=== PATIENT | female | born 1945 | race Caucasian/White ===

== ENCOUNTER → 2017-08-03 11:11 | Outpatient (CLI) | payer MEDICARE, SELFPAY ==
[2017-08-03 13:53] LABS: Erythrocyte Sedimentation Rate 22 mm/hr (0-30)
[2017-08-03 13:58] LABS: Rheumatoid Factor < 10.0 IU/mL (<15)
[2017-08-06 05:01] LABS: Rapid Plasmin Reagin (RPR) NONREACTIVE (NONREACTIVE)
[2017-08-09 14:04] LABS: HLA B27 Negative (.)
== END ==
PROVIDERS: Family Provider Family Medicine; PCP Family Medicine; Visit Provider Ophthalmology
DX: H20.00 Unspecified acute and subacute iridocyclitis (principal); H25.813 Combined forms of age-related cataract, bilateral; H35.81 Retinal edema; E11.9 Type 2 diabetes mellitus without complications; Z79.84 Long term (current) use of oral hypoglycemic drugs
CPT/HCPCS: 36415; 81374; 85652; 86038; 86431; 86592

== ENCOUNTER 2017-10-15 09:48 | Inpatient (IN) | payer MEDICARE, SELFPAY ==
[2017-10-15] VITALS (9 sets, daily range): BP systolic 134–150; BP diastolic 52–81; PULSE 10–118; RESP 16–20; TEMP 36.7–37.9; O2SAT 95–99; BMI 38.7; BMI 40.2
--- NOTE | 2017-10-15 10:08 | EKG12_ITS ---
Test Reason : FEVER Blood Pressure : / mmHG Vent. Rate : 109 BPM Atrial Rate : 109 BPM P-R Int : 172 ms QRS Dur : 142 ms QT Int : 360 ms P-R-T Axes : 040 -31 -01 degrees QTc Int : 484 ms Sinus tachycardia Left axis deviation Right bundle branch block Abnormal ECG Confirmed by NDIHI BEAR, PHILLY ([id number]), electronic news gathering editor FELY FLORES ([id number]) on 10/21/2017 3:10:03 PM Referred By: NEIL Confirmed By:PHILLY TERRELL MD
--- NOTE | 2017-10-15 10:15 | RAD_ITS ---
STUDY: X-RAY CHEST REASON FOR EXAM: Female, 72 years old. Fever and shortness of breath. TECHNIQUE: Single AP portable view of the chest. COMPARISON: Comparison is made with prior study dated December 27, 2016. FINDINGS: EKG electrodes are seen. Mild degree of vascular congestion. There is no demonstrated pleural abnormality. There is mild cardiac enlargement. Normal mediastinum and demetrius. Normal visualized pulmonary arteries. There is atherosclerotic tortuosity of the aortic arch and descending thoracic aorta. There are diffuse degenerative changes of the visualized thoracic spine. Evidence of prior left rotator cuff surgery. There is no demonstrated abnormality of the visualized soft tissue structures of the upper abdomen. RAD/Chest 1 View (Portable) IMPRESSION: Mild degree of vascular congestion. Electronically Signed: Mitchel Diaz MD at 11:17 EDT Tel [phone], Service support ,
--- NOTE | 2017-10-15 10:15 | ED.DCSUM_ITS ---
- ER Visit Summary Date of Service: 10/15/17 Chief Complaint: Fever History of Present Illness: The patient is a 72 F complains of fever that started about 11-12 hours ago. She is also complaining of quite a bit of pain in her right calf region as well as redness. She is a diabetic, she also has a history of melanoma and ovarian cancer. She is complaining of headache but no neck pain. No cough, no shortness of breath. No dysuria. She has an ostomy bag and she has chronic abdominal pain, she endorses some abdominal pain but only slightly worse than her normal pain. No change in character. Physical Examination: Patient is tachycardic, febrile. She appears in some distress. She has a supple neck with no meningismus and a negative jolt. She has clear lungs bilaterally with regular tachycardia. Her abdomen is soft there is some tenderness to palpation but no guarding or rebound. The ostomy bag site is clean dry and intact without any signs of cellulitis. She has significant cellulitis of the right lower extremity circumferentially. No crepitus. No lymphangitic streaking. Emergency Department Course and Treatment: Leg x-ray does not show any subcutaneous air, no streaking on physical exam and no crepitus on examination. There are no current signs of necrotizing fasciitis. Patient was treated aggressively with vancomycin and Cipro. These were chosen secondary to her allergies to 3 different antibiotics. He does have leukocytosis with a left shift. Disposition: Admit stable condition Impression: Cellulitis This note was generated with [employer] dictation software. It may contain incorrect words, spelling, and punctuation that were not noted in review of the chart prior to signing ED Disposition - Plan for ED Patient: Chief Complaint: Fever Referrals: Chente Daigle MD [Primary Care Provider] -
--- NOTE | 2017-10-15 10:22 | RAD_ITS ---
STUDY: X-RAY - RIGHT TIBIA AND FIBULA REASON FOR EXAM: Female, 72 years old. Pain and swelling. No known injury. TECHNIQUE: 3 view(s) of the tibia and fibula were obtained. COMPARISON: None. FINDINGS: Normal visualized tibia. Normal visualized fibula. Diffuse soft tissue swelling. RAD/Tibia & Fibula 2 Views IMPRESSION: Diffuse soft tissue swelling. Electronically Signed: Mitchel Diaz MD at 11:16 EDT Tel [phone], Service support ,
[2017-10-15 10:36] LABS: Absolute Lymphocyte Count 0.86 X10^3/ul (0.83-4.51); Absolute Neutrophil Count 13.1 X10^3/uL (2.0-7.7); Basophil# 0.01 X10^3/uL; Basophil% 0.1 % (0-1); Eosinophil# 0.02 X10^3/uL; Eosinophils% 0.1 % (0-5); Hemoglobin 12.9 g/dl (12.0-15.0); Lymphocyte # 0.86 X10^3/ul (4.0); Lymphocyte % 5.9 % (19-41); Mean Corp Hgb Conc 32.3 g/gl (32-36); Mean Corpuscular Hgb 29.9 pg (27.0-32.0); Mean Corpuscular Volume 92.6 fL (81-99); Mean Platelet Vol. 9.8 fl (6.2-12.0); Monocyte# 0.55 X10^3/uL; Monocyte% 3.8 % (0-10); Neutrophil # 13.14 X10^3/uL (2.7-7.7); Platelet Count 128 K/mm3 (150-450); RBC Distribution Width CV 14.2 % (11.6-14.6); Red Blood Count 4.32 M/mm3 (4.2-5.4); White Blood Count 14.6 K/mm3 (4.4-11.0)
[2017-10-15 10:37] LABS: POSITIVE COUNT NO; POSITIVE DIFFERENTIAL NO; POSITIVE MORPHOLOGY NO
[2017-10-15 10:40] LABS: International Normalized Ratio 1.3; Prothrombin Time (Protime)PT. 15.7 SECONDS (11.7-14.9)
[2017-10-15 10:41] LABS: Partial Thromboplast Time 33.5 Seconds (24.1-36.2)
[2017-10-15 10:49] LABS: ALB/GLOB Ratio 0.8 RATIO (0.9-2.4); AST(SGOT) 15 U/L (15-37); Alanine Aminotransfer ALT/SGPT 22 U/L (13-56); Albumin, Serum 3.3 g/dL (3.2-5.0); Alkaline Phosphatase 100 U/L (45-117); Anion Gap 7 (5-15); BUN 30 mg/dL (7-18); BUN/Creat Ratio 20.5 RATIO (10-20); Calcium,Total 8.8 mg/dL (8.5-10.1); Chloride 102 mmol/L (98-107); Creatinine, Serum 1.46 mg/dL (0.55-1.02); EST Glomerular Filtration Rate 37 mL/min (>60); Est Glom Filt Rate - Afr Amer 45 mL/min (>60); Estimated Creatinine Clearance 26.28 ml/min; Globulin 3.9 g/dL (2.2-4.2); Glucose 177 mg/dL (74-106); Potassium 3.9 mmol/L (3.5-5.1); Protein, Total 7.2 g/dL (6.4-8.2); Sodium Level 139 mmol/L (136-145)
[2017-10-15 10:54] LABS: Lactic Acid 1.5 mmol/L (0.4-2.0)
[2017-10-15 10:54] LABS: Bacteria 0 SEEN /hpf (None Seen); Mucous, Urine 0 SEEN /hpf (<or=2+); Red Blood Cells-Urine 0 SEEN /hpf (0-5)
[2017-10-15 11:03] LABS: Color, Urine Yellow (Yellow); Glucose, Dipstick Normal (Normal); Ketone-Dipstick Negative (Negative); Leukocyte Esterase-Dipstick 25 /ul (Negative); Nitrite-Dipstick Negative (Negative); Occult Blood-Urine 50 /ul (Negative); Protein-Dipstick 30 mg/dl (Negative); Specific Gravity, Urine 1.015 (1.002-1.030); Urine Bilirubin Dipstick Negative (Negative); Urine Clarity Clear (Clear); Urine Urobilinogen Normal (Normal)
[2017-10-15 11:10] LABS: White Blood Cells 0-5 SEEN /hpf (0-5)
[2017-10-15 11:11] LABS: Squamous Epithelial Cells - UA 0-5 SEEN /hpf (5-10)
[2017-10-15] MEDS: proMETHazine 25 MG Tablet PO (13:40)
[2017-10-15] MEDS: Acetaminophen 325 MG Tablet 650 MG PO (13:41)
[2017-10-15 14:31] LABS: Bedside Glucose 126 mg/dL (70-110)
--- NOTE | 2017-10-15 14:52 | PCM.HP.STD ---
Problem List (1) Cellulitis of right lower extremity Status: Acute History of Present Illness Date of Admission: 10/15/17 Chief Complaint: right leg pain. The patient is a 72 year old F with history of cellulitis. Patient was feeling ill, with malaise in days prior. Then this morning, around 0300, she had swelling and pain in posterior distal RLE. She had fever and chills. She presented to ED and was found to have RLE cellulitis. She received Vancomycin. [] Past Medical History Past Medical History (Chronic Problems): Chronic Problems Asthma (Chronic) Reported, severity unknown History of DVT (deep vein thrombosis) (Chronic) History of pulmonary embolism (Chronic) Type II diabetes mellitus (Chronic) Cancer of ovary (Chronic) Anemia (Chronic) Venous insufficiency (Chronic) Poor dentition (Chronic) Allergies clindamycin Allergy (Verified 10/15/17 09:50) Other meperidine HCl [From Demerol] Allergy (Verified 10/15/17 09:50) Other Penicillins Allergy (Verified 10/15/17 09:50) Itching adhesive tape Adverse Reaction (Verified 10/15/17 09:50) Other BLISTERS aspirin Adverse Reaction (Verified 10/15/17 09:50) Other diazepam [From Valium] Adverse Reaction (Verified 10/15/17 09:50) Nausea/Vom/Diarrhea egg Adverse Reaction (Verified 10/15/17 09:50) Diarrhea morphine Adverse Reaction (Verified 10/15/17 09:50) Nausea/Vom/Diarrhea sulfamethoxazole [From Bactrim] Adverse Reaction (Verified 10/15/17 09:50) Nausea/Vom/Diarrhea trimethoprim [From Bactrim] Adverse Reaction (Verified 10/15/17 09:50) Nausea/Vom/Diarrhea Home Medications: Ambulatory Orders Medication Instructions Recorded Acetaminophen [Tylenol] 325 mg PO Q6H PRN PRN 05/29/15 Cyanocobalamin [Vitamin B12] 1,000 mcg PO DAILY@0800 05/29/15 Cyclobenzaprine [Flexeril] 10 mg PO QHS 05/29/15 Metformin HCl [Glucophage] 500 mg PO BIDCM 05/29/15 Apixaban [Eliquis] 2.5 mg PO BID 06/12/15 Multivitamin [Daily Multiple 1 tab PO DAILY 06/12/15 Vitamin] Furosemide [Lasix] 40 mg PO BID 07/16/15 Oxycodone [Oxyir] 5 mg PO Q4H PRN PRN #60 tablet 07/20/15 proMETHazine tablet [Phenergan 25 mg PO 4X/DAY PRN PRN #20 tablet 07/20/15 tablet] Albuterol IH (ProAir) [Proair Hfa] 2 puff INHALATION Q6H PRN PRN 05/27/16 Cetirizine HCl [Zyrtec] 10 mg PO PRN PRN 05/27/16 Ondansetron HCl [Zofran] 4 mg PO 4X/DAY PRN PRN 05/27/16 Sumatriptan Succinate [Imitrex] 50 mg PO .X1 PRN 05/27/16 Oxycodone HCl [Oxycodone HCl ER] 15 mg PO Q12H PRN PRN 12/25/16 Surgical History: cholecystectomy, hysterectomy - For uterine fibroids, total hip arthroplasty - Right, total knee arthroplasty - Left, - - Surgery for bilateral carpal tunnel syndrome. Resection of ovarian cancer at [facility] in 2015, debridement of the abdominal wall with wound closure by Dr. 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 Smoking Status: Never smoker - *Family History Maternal History Items: No pertinent history, - - no cancer Paternal History Items: No pertinent history Review of Systems Constitutional: Reports: Chills, Fever, Malaise, Weakness Eyes: Reports: Blurred vision - chronic due to fluid behind her eyes Cardiovascular: Denies: Chest Pain, Claudication, Chest Pressure, Chest Tightness Respiratory: Denies: Cough, Hemoptysis, Pleuritic Pain Gastrointestinal: Denies: Abdominal Pain, Constipation Genitourinary: Denies: Dysuria Musculoskeletal: Denies: Joint Pain, Joint Tenderness Skin: Denies: Rash, Wounds Neurological: Denies: Numbness, Tingling, Focal weakness Psychiatric: Denies: Anxiety, Depression Hematologic/ Lymphatic: Denies: Easy Bruising, Easy Bleeding VTE Information - Inpt Only VTE Present on Admission: No VTE Pharm Prophylaxis ordered?: Yes Patient Problems: Active and Suspected Problems Cellulitis of right lower extremity (Acute) - Physical Exam General: Alert, No apparent distress HEENT: Atraumatic, Normocephalic Oral: Moist Mucosa, No Gingival or Mucosal Lesions/ Ulcerations Neck: No Nodes, Thyroid Normal Size and Texture Lungs: Clear to auscultation, Normal air movement, No rhonchi, No wheeze Cardiovascular: Regular rate, Regular Rhythm, Normal S1, Normal S2, No murmurs Abdomen: Bowel Sounds Present, Soft, Non Tender, Non-Distended, No Hepato-splenomegaly, - - ventral hernia below stoma Extremities: No Calf Tenderness, Edema - trace Skin: - - erythema and TTP of RLE Musculoskeletal: No Tenderness to Palpation of Joints or Extremities, No Muscle Wasting Psych/Mental Status: Normal Affect, Appropriate Vital Signs Temp Pulse Resp BP Pulse Ox 36.7 C 103 H 18 146/81 H 98 10/15/17 13:00 10/15/17 13:00 10/15/17 13:00 10/15/17 13:00 10/15/17 13:00 Oxygen Delivery Method Room Air Weight: 96.6 kg Body Mass Index (BMI) 40.2 POC Glucose 10/15/17 14:25 POC Glucose 126 H Assessment/Plan All Active Problems Cellulitis of right lower extremity (Acute) Severe sepsis (Acute) Melanoma (Acute) Acute renal insufficiency (Acute) Dental infection (Acute) Dehydration (Acute) Abdominal wall ulcer (Resolved) Colitis (Resolved) Left leg cellulitis (Resolved) Sepsis (Resolved) Surgical wound dehiscence (Resolved) 1. Sepsis: present on admission secondary to RLE cellulitis 2. 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 DVT proph: LMWH Code Visit Inpatient E&M: 61205 Init Hosp L2
--- NOTE | 2017-10-15 15:03 | HP.PCM_ITS ---
Problem List (1) Cellulitis of right lower extremity Status: Acute History of Present Illness Date of Admission: 10/15/17 Chief Complaint: right leg pain. The patient is a 72 year old F with history of cellulitis. Patient was feeling ill, with malaise in days prior. Then this morning, around 0300, she had swelling and pain in posterior distal RLE. She had fever and chills. She presented to ED and was found to have RLE cellulitis. She received Vancomycin. [ ] Past Medical History Past Medical History (Chronic Problems): Chronic Problems Asthma (Chronic) Reported, severity unknown History of DVT (deep vein thrombosis) (Chronic) History of pulmonary embolism (Chronic) Type II diabetes mellitus (Chronic) Cancer of ovary (Chronic) Anemia (Chronic) Venous insufficiency (Chronic) Poor dentition (Chronic) Allergies clindamycin Allergy (Verified 10/15/17 09:50) Other meperidine HCl [From Demerol] Allergy (Verified 10/15/17 09:50) Other Penicillins Allergy (Verified 10/15/17 09:50) Itching adhesive tape Adverse Reaction (Verified 10/15/17 09:50) Other BLISTERS aspirin Adverse Reaction (Verified 10/15/17 09:50) Other diazepam [From Valium] Adverse Reaction (Verified 10/15/17 09:50) Nausea/Vom/Diarrhea egg Adverse Reaction (Verified 10/15/17 09:50) Diarrhea morphine Adverse Reaction (Verified 10/15/17 09:50) Nausea/Vom/Diarrhea sulfamethoxazole [From Bactrim] Adverse Reaction (Verified 10/15/17 09:50) Nausea/Vom/Diarrhea trimethoprim [From Bactrim] Adverse Reaction (Verified 10/15/17 09:50) Nausea/Vom/Diarrhea Home Medications: Ambulatory Orders Medication Instructions Recorded Acetaminophen [Tylenol] 325 mg PO Q6H PRN PRN 05/29/15 Cyanocobalamin [Vitamin B12] 1,000 mcg PO DAILY@0800 05/29/15 Cyclobenzaprine [Flexeril] 10 mg PO QHS 05/29/15 Metformin HCl [Glucophage] 500 mg PO BIDCM 05/29/15 Apixaban [Eliquis] 2.5 mg PO BID 06/12/15 Multivitamin [Daily Multiple 1 tab PO DAILY 06/12/15 Vitamin] Furosemide [Lasix] 40 mg PO BID 07/16/15 Oxycodone [Oxyir] 5 mg PO Q4H PRN PRN #60 tablet 07/20/15 proMETHazine tablet [Phenergan 25 mg PO 4X/DAY PRN PRN #20 tablet 07/20/15 tablet] Albuterol IH (ProAir) [Proair Hfa] 2 puff INHALATION Q6H PRN PRN 05/27/16 Cetirizine HCl [Zyrtec] 10 mg PO PRN PRN 05/27/16 Ondansetron HCl [Zofran] 4 mg PO 4X/DAY PRN PRN 05/27/16 Sumatriptan Succinate [Imitrex] 50 mg PO .X1 PRN 05/27/16 Oxycodone HCl [Oxycodone HCl ER] 15 mg PO Q12H PRN PRN 12/25/16 Surgical History: cholecystectomy, hysterectomy - For uterine fibroids, total hip arthroplasty - Right, total knee arthroplasty - Left, - - Surgery for bilateral carpal tunnel syndrome. Resection of ovarian cancer at [facility] in 2015, debridement of the abdominal wall with wound closure by Dr. 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 Smoking Status: Never smoker - *Family History Maternal History Items: No pertinent history, - - no cancer Paternal History Items: No pertinent history Review of Systems Constitutional: Reports: Chills, Fever, Malaise, Weakness Eyes: Reports: Blurred vision - chronic due to fluid behind her eyes Cardiovascular: Denies: Chest Pain, Claudication, Chest Pressure, Chest Tightness Respiratory: Denies: Cough, Hemoptysis, Pleuritic Pain Gastrointestinal: Denies: Abdominal Pain, Constipation Genitourinary: Denies: Dysuria Musculoskeletal: Denies: Joint Pain, Joint Tenderness Skin: Denies: Rash, Wounds Neurological: Denies: Numbness, Tingling, Focal weakness Psychiatric: Denies: Anxiety, Depression Hematologic/ Lymphatic: Denies: Easy Bruising, Easy Bleeding VTE Information - Inpt Only VTE Present on Admission: No VTE Pharm Prophylaxis ordered?: Yes Patient Problems: Active and Suspected Problems Cellulitis of right lower extremity (Acute) - Physical Exam General: Alert, No apparent distress HEENT: Atraumatic, Normocephalic Oral: Moist Mucosa, No Gingival or Mucosal Lesions/ Ulcerations Neck: No Nodes, Thyroid Normal Size and Texture Lungs: Clear to auscultation, Normal air movement, No rhonchi, No wheeze Cardiovascular: Regular rate, Regular Rhythm, Normal S1, Normal S2, No murmurs Abdomen: Bowel Sounds Present, Soft, Non Tender, Non-Distended, No Hepato- splenomegaly, - - ventral hernia below stoma Extremities: No Calf Tenderness, Edema - trace Skin: - - erythema and TTP of RLE Musculoskeletal: No Tenderness to Palpation of Joints or Extremities, No Muscle Wasting Psych/Mental Status: Normal Affect, Appropriate Vital Signs Temp Pulse Resp BP Pulse Ox 36.7 C 103 H 18 146/81 H 98 10/15/17 13:00 10/15/17 13:00 10/15/17 13:00 10/15/17 13:00 10/15/17 13:00 Oxygen Delivery Method Room Air Weight: 96.6 kg Body Mass Index (BMI) 40.2 POC Glucose 10/15/17 14:25 POC Glucose 126 H Assessment/Plan All Active Problems Cellulitis of right lower extremity (Acute) Severe sepsis (Acute) Melanoma (Acute) Acute renal insufficiency (Acute) Dental infection (Acute) Dehydration (Acute) Abdominal wall ulcer (Resolved) Colitis (Resolved) Left leg cellulitis (Resolved) Sepsis (Resolved) Surgical wound dehiscence (Resolved) 1. Sepsis: * present on admission * secondary to RLE cellulitis 2. 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 DVT proph: * LMWH Code Visit Inpatient E&M: 05187 Init Hosp L2
--- NOTE | 2017-10-15 15:54 | PCM.RX.CS ---
Consult Pharmacy has been consulted to manage selected antiobiotic: Vancomycin Type of Consult: New start Suspected Infection: Skin/Soft tissue Prior Doses of Antibiotics Received/Current Regimen: 1 Labs: Sodium 139 mmol/L (136-145) 10/15/17 10:23 Potassium 3.9 mmol/L (3.5-5.1) 10/15/17 10:23 Chloride 102 mmol/L (98-107) 10/15/17 10:23 Carbon Dioxide 30.0 mmol/L (21.0-32.0) 10/15/17 10:23 Anion Gap 7 (5-15) 10/15/17 10:23 BUN 30 mg/dL (7-18) H 10/15/17 10:23 Creatinine 1.46 mg/dL (0.55-1.02) H 10/15/17 10:23 Est GFR (MDRD) Af Amer 45 mL/min (>60) L 10/15/17 10:23 Est GFR (MDRD) Non-Af 37 mL/min (>60) L 10/15/17 10:23 BUN/Creatinine Ratio 20.5 RATIO (10-20) H 10/15/17 10:23 Glucose 177 mg/dL (74-106) H 10/15/17 10:23 Weight used for dosin.6 kg Estimated Creatinine Clearance: 26.28 Goal Trough: 10-15 mcg/mL - 750MG IVPB Q24H, DRAW TROUGH PRIOR TO 3RD TOTAL DOSE Pharmacy Plan for Drug Dosing: Pharmacy Service will continue to monitor and adjust dosing as required.
[2017-10-15] MEDS: oxyCODONE CR 15 MG Tablet PO (16:37)
[2017-10-15] MEDS: oxyCODONE 5 MG Tablet PO ×2 (16:38→21:38)
[2017-10-15] MEDS: APIXABAN 2.5 MG TABLET PO (16:38)
[2017-10-15] MEDS: Furosemide 40 MG Tablet PO (21:39)
[2017-10-15 21:46] LABS: Bedside Glucose 156 mg/dL (70-110)
[2017-10-16] MEDS: oxyCODONE CR 15 MG Tablet PO ×3 (00:59→21:34)
[2017-10-16 02:35] VITALS: BP 110/54; PULSE 72; RESP 16; TEMP 36.8; O2SAT 98
[2017-10-16 07:01] LABS: Bedside Glucose 110 mg/dL (70-110)
[2017-10-16 07:16] LABS: Absolute Lymphocyte Count 0.55 X10^3/ul (0.83-4.51); Absolute Neutrophil Count 4.4 X10^3/uL (2.0-7.7); Basophil# 0.01 X10^3/uL; Basophil% 0.2 % (0-1); Eosinophil# 0.13 X10^3/uL; Eosinophils% 2.3 % (0-5); Hematocrit 34.8 % (37-47); Hemoglobin 10.9 g/dl (12.0-15.0); Lymphocyte # 0.55 X10^3/ul (4.0); Lymphocyte % 9.7 % (19-41); Mean Corp Hgb Conc 31.3 g/gl (32-36); Mean Corpuscular Hgb 29.8 pg (27.0-32.0); Mean Corpuscular Volume 95.1 fL (81-99); Mean Platelet Vol. 9.6 fl (6.2-12.0); Monocyte# 0.57 X10^3/uL; Monocyte% 10.1 % (0-10); Neutrophil # 4.39 X10^3/uL (2.7-7.7); Neutrophil % 77.5 % (47-70); Platelet Count 111 K/mm3 (150-450); RBC Distribution Width CV 14.6 % (11.6-14.6); RBC Distribution Width SD 50.3 fl (35.1-43.9); Red Blood Count 3.66 M/mm3 (4.2-5.4); White Blood Count 5.7 K/mm3 (4.4-11.0)
[2017-10-16 07:18] LABS: Differential Indicated SCAN CRITERIA MET; POSITIVE COUNT NO; POSITIVE DIFFERENTIAL YES; POSITIVE MORPHOLOGY NO
[2017-10-16 07:34] LABS: Anion Gap 7 (5-15); BUN 23 mg/dL (7-18); BUN/Creat Ratio 17.4 RATIO (10-20); Calcium,Total 8.2 mg/dL (8.5-10.1); Chloride 107 mmol/L (98-107); Creatinine, Serum 1.32 mg/dL (0.55-1.02); EST Glomerular Filtration Rate 42 mL/min (>60); Est Glom Filt Rate - Afr Amer 51 mL/min (>60); Estimated Creatinine Clearance 29.07 ml/min; Glucose 118 mg/dL (74-106); Potassium 3.8 mmol/L (3.5-5.1); Sodium Level 143 mmol/L (136-145)
[2017-10-16 08:06] VITALS: BP 104/51; PULSE 72; RESP 18; TEMP 36.7; O2SAT 98
[2017-10-16] MEDS: Furosemide 40 MG Tablet PO ×2 (08:07→21:36)
[2017-10-16] MEDS: APIXABAN 2.5 MG TABLET PO ×2 (08:09→21:37)
[2017-10-16] MEDS: Cyanocobalamin 500 MCG Tablet 1000 MCG PO (08:09)
[2017-10-16] MEDS: oxyCODONE 5 MG Tablet PO ×2 (08:15→17:07)
[2017-10-16] MEDS: Multivitamins,Therapeutic Tablet 1 TABLET PO (08:16)
--- NOTE | 2017-10-16 09:07 | PCM.PN.HOSP ---
Patient Problems: Active and Suspected Problems Cellulitis of right lower extremity (Acute) Sepsis (Acute) Subjective: Feeling better. Still with right leg pain. Vitals/I&O's: Vital Signs Temp Pulse Resp BP Pulse Ox 36.7 C 72 18 104/51 L 98 10/16/17 08:06 10/16/17 08:06 10/16/17 08:06 10/16/17 08:06 10/16/17 08:06 Oxygen Delivery Method Room Air Weight: 96.6 kg Body Mass Index (BMI) 40.2 Intake and Output for Last 24 Hours 10/14/17 10/15/17 10/16/17 23:59 23:59 23:59 Intake Total 660 / 660 Output Total 650 / 650 Balance General: Alert, Cooperative, No apparent distress HEENT: Atraumatic, Normocephalic Neck: No Nodes, Thyroid Normal Size and Texture Lungs: Clear to auscultation, Normal air movement, No rhonchi, No wheeze Cardiovascular: Regular rate, Regular Rhythm, Normal S1, Normal S2, No murmurs Abdomen: Bowel Sounds Present, Soft, Non Tender, Non-Distended Extremities: Edema Skin: - - still with RLE erythema and warmth. Psych/Mental Status: Normal Affect, Appropriate Laboratory Results 10/15/17 14:25: POC Glucose 126 H 10/15/17 21:24: POC Glucose 156 H 10/16/17 06:57: POC Glucose 110 10/16/17 07:00: WBC 5.7, RBC 3.66 L, Hgb 10.9 L, Hct 34.8 L, MCV 95.1, MCH 29.8, MCHC 31.3 L, RDW 14.6, RDW Differential 50.3 H, Plt Count 111 L, MPV 9.6, Immature Gran % (Auto) 0.200, Neut % (Auto) 77.5 H, Lymph % (Auto) 9.7 L, [place] % (Auto) 10.1 H, Eos % (Auto) 2.3, Baso % (Auto) 0.2, Absolute Neuts (auto) 4.4, Absolute Lymphs (auto) 0.55 L, Total Counted Not Reportable 10/16/17 07:00: Sodium 143, Potassium 3.8, Chloride 107, Carbon Dioxide 29.0, Anion Gap 7, BUN 23 H, Creatinine 1.32 H, Estim Creat Clear Calc 29.07, Est GFR (MDRD) Af Amer 51 L, Est GFR (MDRD) Non-Af 42 L, BUN/Creatinine Ratio 17.4, Glucose 118 H, Calcium 8.2 L Current Medications Acetaminophen (Tylenol) 325 mg PO Q6H PRN PRN PRN Reason: PAIN Acetaminophen (Tylenol) 650 mg PO Q6H PRN PRN PRN Reason: Mild Pain (scale 0-3)/T>100.7 Last Admin: 10/15/17 13:41 Dose: 650 mg Albuterol Sulfate (Ventolin Aerosols) 2.5 mg INHALATION Q4H PRN PRN Reason: SOB/WHEEZING Apixaban (Eliquis) 2.5 mg PO BID [facility] Last Admin: 10/16/17 08:09 Dose: 2.5 mg Cyanocobalamin (Vitamin B12) 1,000 mcg PO DAILY@0800 [facility] Last Admin: 10/16/17 08:09 Dose: 1,000 mcg Cyclobenzaprine HCl (Flexeril) 10 mg PO QHS [facility] Last Admin: 10/15/17 21:38 Dose: 10 mg Dextrose (D50w Syringe) 0 gm IV X1 PRN; Protocol PRN Reason: Hypoglycemia Furosemide (Lasix) 40 mg PO BID [facility] Last Admin: 10/16/17 08:07 Dose: 40 mg Glucagon () 1 mg IM .X1 PRN PRN Reason: Hypoglycemia Vancomycin HCl 750 mg/ Sodium (Chloride) 265 mls @ 265 mls/hr IV Q24H [facility] Insulin Human Lispro (Humalog Kwikpen (Bkc)) 0 unit SQ TIDAC [facility] PRN Reason: Protocol Last Admin: 10/16/17 07:01 Dose: Not Given Loratadine (Claritin) 10 mg PO DAILY PRN PRN PRN Reason: ALLERGIES Magnesium Hydroxide (Milk Of Magnesia) 30 ml PO DAILY PRN PRN PRN Reason: Constipation [facility] Last Admin: 10/16/17 08:08 Dose: 500 mg Multivitamins (Multivitamin) 1 tablet PO DAILY@0800 [facility] Last Admin: 10/16/17 08:16 Dose: 1 tablet Ondansetron HCl (Zofran) 4 mg IV Q8H PRN PRN PRN Reason: Nausea Ondansetron HCl (Zofran Odt) 4 mg PO 4X/DAY PRN PRN PRN Reason: NAUSEA Oxycodone HCl (Oxyir) 5 mg PO Q4H PRN PRN PRN Reason: PAIN Last Admin: 10/16/17 08:15 Dose: 5 mg Oxycodone HCl (Oxycontin) 15 mg PO Q12 [place] Last Admin: 10/16/17 00:59 Dose: 15 mg Promethazine HCl (Phenergan Tablet) 25 mg PO 4X/DAY PRN PRN PRN Reason: NAUSEA/VOMITING Last Admin: 10/15/17 13:40 Dose: 25 mg Rizatriptan Benzoate (Maxalt) 10 mg PO X1 PRN PRN Reason: MIGRAINE SYMPTOMS Sodium Chloride () 5 - 30 ml IV UD PRN PRN Reason: SALINE FLUSH Medical Necessity - Tobacco Use Smoking Status: Never smoker Assessment/Plan All Active Problems Cellulitis of right lower extremity (Acute) Sepsis (Acute) Severe sepsis (Acute) Melanoma (Acute) Acute renal insufficiency (Acute) Dental infection (Acute) Dehydration (Acute) Abdominal wall ulcer (Resolved) Colitis (Resolved) Left leg cellulitis (Resolved) Sepsis (Resolved) Surgical wound dehiscence (Resolved) 1. Sepsis: present on admission improved today secondary to RLE cellulitis 2. RLE cellulitis suspect Staph or Strep vancomycin Blood cultures pending. UCx pending. 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 DVT proph: LMWH Code Visit Inpatient E&M: 26527 Subs Hosp L2
--- NOTE | 2017-10-16 09:10 | PN_ITS ---
Patient Problems: Active and Suspected Problems Cellulitis of right lower extremity (Acute) Sepsis (Acute) Subjective: Feeling better. Still with right leg pain. Vitals/I&O's: Vital Signs Temp Pulse Resp BP Pulse Ox 36.7 C 72 18 104/51 L 98 10/16/17 08:06 10/16/17 08:06 10/16/17 08:06 10/16/17 08:06 10/16/17 08:06 Oxygen Delivery Method Room Air Weight: 96.6 kg Body Mass Index (BMI) 40.2 Intake and Output for Last 24 Hours 10/14/17 10/15/17 10/16/17 23:59 23:59 23:59 Intake Total 660 / 660 Output Total 650 / 650 Balance General: Alert, Cooperative, No apparent distress HEENT: Atraumatic, Normocephalic Neck: No Nodes, Thyroid Normal Size and Texture Lungs: Clear to auscultation, Normal air movement, No rhonchi, No wheeze Cardiovascular: Regular rate, Regular Rhythm, Normal S1, Normal S2, No murmurs Abdomen: Bowel Sounds Present, Soft, Non Tender, Non-Distended Extremities: Edema Skin: - - still with RLE erythema and warmth. Psych/Mental Status: Normal Affect, Appropriate Laboratory Results 10/15/17 14:25: POC Glucose 126 H 10/15/17 21:24: POC Glucose 156 H 10/16/17 06:57: POC Glucose 110 10/16/17 07:00: WBC 5.7, RBC 3.66 L, Hgb 10.9 L, Hct 34.8 L, MCV 95.1, MCH 29.8 , MCHC 31.3 L, RDW 14.6, RDW Differential 50.3 H, Plt Count 111 L, MPV 9.6, Immature Gran % (Auto) 0.200, Neut % (Auto) 77.5 H, Lymph % (Auto) 9.7 L, [place] % (Auto) 10.1 H, Eos % (Auto) 2.3, Baso % (Auto) 0.2, Absolute Neuts (auto) 4.4 , Absolute Lymphs (auto) 0.55 L, Total Counted Not Reportable 10/16/17 07:00: Sodium 143, Potassium 3.8, Chloride 107, Carbon Dioxide 29.0, Anion Gap 7, BUN 23 H, Creatinine 1.32 H, Estim Creat Clear Calc 29.07, Est GFR (MDRD) Af Amer 51 L, Est GFR (MDRD) Non-Af 42 L, BUN/Creatinine Ratio 17.4, Glucose 118 H, Calcium 8.2 L Current Medications Acetaminophen (Tylenol) 325 mg PO Q6H PRN PRN PRN Reason: PAIN Acetaminophen (Tylenol) 650 mg PO Q6H PRN PRN PRN Reason: Mild Pain (scale 0-3)/T>100.7 Last Admin: 10/15/17 13:41 Dose: 650 mg Albuterol Sulfate (Ventolin Aerosols) 2.5 mg INHALATION Q4H PRN PRN Reason: SOB/WHEEZING Apixaban (Eliquis) 2.[address] [facility] Last Admin: 10/16/17 08:09 Dose: 2.5 mg Cyanocobalamin (Vitamin B12) 1,000 mcg PO DAILY@0800 [facility] Last Admin: 10/16/17 08:09 Dose: 1,000 mcg Cyclobenzaprine HCl (Flexeril) [address] [facility] Last Admin: 10/15/17 21:38 Dose: 10 mg Dextrose (D50w Syringe) 0 gm IV X1 PRN; Protocol PRN Reason: Hypoglycemia Furosemide (Lasix) [address] [facility] Last Admin: 10/16/17 08:07 Dose: 40 mg Glucagon () 1 mg IM .X1 PRN PRN Reason: Hypoglycemia Vancomycin HCl 750 mg/ Sodium (Chloride) 265 mls @ 265 mls/hr IV Q24H [facility] Insulin Human Lispro (Humalog Kwikpen (Bkc)) [address] [facility] PRN Reason: Protocol Last Admin: 10/16/17 07:01 Dose: Not Given Loratadine (Claritin) 10 mg PO DAILY PRN PRN PRN Reason: ALLERGIES Magnesium Hydroxide (Milk Of Magnesia) 30 ml PO DAILY PRN PRN PRN Reason: Constipation [facility] Last Admin: 10/16/17 08:08 Dose: 500 mg Multivitamins (Multivitamin) 1 tablet PO DAILY@0800 [facility] Last Admin: 10/16/17 08:16 Dose: 1 tablet Ondansetron HCl (Zofran) 4 mg IV Q8H PRN PRN PRN Reason: Nausea Ondansetron HCl (Zofran Odt) 4 mg PO 4X/DAY PRN PRN PRN Reason: NAUSEA Oxycodone HCl (Oxyir) 5 mg PO Q4H PRN PRN PRN Reason: PAIN Last Admin: 10/16/17 08:15 Dose: 5 mg Oxycodone HCl (Oxycontin) 15 mg PO Q12 [facility] Last Admin: 10/16/17 00:59 Dose: 15 mg Promethazine HCl (Phenergan Tablet) 25 mg PO 4X/DAY PRN PRN PRN Reason: NAUSEA/VOMITING Last Admin: 10/15/17 13:40 Dose: 25 mg Rizatriptan Benzoate (Maxalt) 10 mg PO X1 PRN PRN Reason: MIGRAINE SYMPTOMS Sodium Chloride () 5 - 30 ml IV UD PRN PRN Reason: SALINE FLUSH Medical Necessity - Tobacco Use Smoking Status: Never smoker Assessment/Plan All Active Problems Cellulitis of right lower extremity (Acute) Sepsis (Acute) Severe sepsis (Acute) Melanoma (Acute) Acute renal insufficiency (Acute) Dental infection (Acute) Dehydration (Acute) Abdominal wall ulcer (Resolved) Colitis (Resolved) Left leg cellulitis (Resolved) Sepsis (Resolved) Surgical wound dehiscence (Resolved) 1. Sepsis: * present on admission * improved today * secondary to RLE cellulitis 2. RLE cellulitis * suspect Staph or Strep * vancomycin * Blood cultures pending. UCx pending. 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 DVT proph: * LMWH Code Visit Inpatient E&M: 51224 Subs Hosp L2
[2017-10-16 11:11] LABS: Bedside Glucose 141 mg/dL (70-110)
[2017-10-16] MEDS: 0.9% NaCl Peripheral Flush Adult/Peds IV (12:35)
[2017-10-16 14:00] VITALS: BP 118/58; PULSE 75; RESP 18; TEMP 36.8; O2SAT 98
--- NOTE | 2017-10-16 15:30 | CASEMGMT ---
RN YENNY Face to Face with patient for initial transition planning/care coordination assessment. RN CM introduced self and role at [facility]. Patient sitting in chair, alert and oriented, family at bedside. Patient willing to participate in assessment and is able to answer all questions appropriately. Care providers, pharmacy, and demographics verified. See link attached. Patient wishes to discharge home, denies need for home health at this time. Patient states she has no further needs or concerns at this time. CM to follow for discharge planning needs that may arise. Disposition Plan: Patient to discharge home with family support and follow-up plans in place.
[2017-10-16 16:50] LABS: Bedside Glucose 121 mg/dL (70-110)
[2017-10-16 20:21] VITALS: BP 141/67; PULSE 79; RESP 18; TEMP 36.8; O2SAT 100
[2017-10-16 23:26] LABS: Bedside Glucose 167 mg/dL (70-110)
[2017-10-17] MEDS: oxyCODONE 5 MG Tablet PO ×4 (00:23→23:57)
[2017-10-17 03:56] VITALS: BP 125/68; PULSE 67; RESP 18; TEMP 36.8; O2SAT 100
[2017-10-17 07:16] LABS: Bedside Glucose 102 mg/dL (70-110)
[2017-10-17] MEDS: Multivitamins,Therapeutic Tablet 1 TABLET PO (08:39)
[2017-10-17] MEDS: Furosemide 40 MG Tablet PO ×2 (08:39→17:39)
[2017-10-17] MEDS: Cyanocobalamin 500 MCG Tablet 1000 MCG PO (08:39)
[2017-10-17] MEDS: APIXABAN 2.5 MG TABLET PO ×2 (08:40→21:27)
--- NOTE | 2017-10-17 09:44 | PCM.PN.HOSP ---
Patient Problems: Active and Suspected Problems Sepsis (Acute) Cellulitis of right lower extremity (Acute) Subjective: still with some pain in posterior right leg. Vitals/I&O's: Vital Signs Temp Pulse Resp BP Pulse Ox 36.8 C 67 18 125/68 H 100 10/17/17 03:56 10/17/17 03:56 10/17/17 03:56 10/17/17 03:56 10/17/17 03:56 Oxygen Delivery Method Room Air Weight: 96.6 kg Body Mass Index (BMI) 40.2 Intake and Output for Last 24 Hours 10/15/17 10/16/17 10/17/17 23:59 23:59 23:59 Intake Total 1080 / 1080 120 / 120 Output Total 1900 / 1900 Balance -820 / -820 120 / 120 General: Alert, No apparent distress HEENT: Atraumatic, Normocephalic Oral: Moist Mucosa, No Gingival or Mucosal Lesions/ Ulcerations Neck: No Nodes, Thyroid Normal Size and Texture Lungs: Clear to auscultation, Normal air movement, No rhonchi, No wheeze Cardiovascular: Regular rate, Regular Rhythm, Normal S1, Normal S2, No murmurs Abdomen: Bowel Sounds Present, Soft, Non Tender, Non-Distended, No Hepato-splenomegaly Extremities: No Calf Tenderness, Edema Skin: - - slight improved erythema RLE anterior as well as posteriorly extending up to just below knee medially. Psych/Mental Status: Normal Affect, Appropriate Laboratory Results 10/16/17 10:56: POC Glucose 141 H 10/16/17 16:44: POC Glucose 121 H 10/16/17 21:42: POC Glucose 167 H 10/17/17 07:12: POC Glucose 102 Current Medications Acetaminophen (Tylenol) 325 mg PO Q6H PRN PRN PRN Reason: PAIN Acetaminophen (Tylenol) 650 mg PO Q6H PRN PRN PRN Reason: Mild Pain (scale 0-3)/T>100.7 Last Admin: 10/15/17 13:41 Dose: 650 mg Albuterol Sulfate (Ventolin Aerosols) 2.5 mg INHALATION Q4H PRN PRN Reason: SOB/WHEEZING Apixaban (Eliquis) 2.5 mg PO BID [facility] Last Admin: 10/17/17 08:40 Dose: 2.5 mg Cyanocobalamin (Vitamin B12) 1,000 mcg PO DAILY@0800 [facility] Last Admin: 10/17/17 08:39 Dose: 1,000 mcg Cyclobenzaprine HCl (Flexeril) 10 mg PO QHS [facility] Last Admin: 10/16/17 21:37 Dose: 10 mg Dextrose (D50w Syringe) 0 gm IV X1 PRN; Protocol PRN Reason: Hypoglycemia Furosemide (Lasix) 40 mg PO BIDLX [facility] Last Admin: 10/17/17 08:39 Dose: 40 mg Glucagon () 1 mg IM .X1 PRN PRN Reason: Hypoglycemia Vancomycin HCl 750 mg/ Sodium (Chloride) 265 mls @ 265 mls/hr IV Q24H [facility] Last Admin: 10/16/17 12:32 Dose: 265 mls/hr Insulin Human Lispro (Humalog Kwikpen (Bkc)) 0 unit SQ TIDAC [facility] PRN Reason: Protocol Last Admin: 10/17/17 07:45 Dose: Not Given Loratadine (Claritin) 10 mg PO DAILY PRN PRN PRN Reason: ALLERGIES Magnesium Hydroxide (Milk Of Magnesia) 30 ml PO DAILY PRN PRN PRN Reason: Constipation Metformin HCl (Glucophage) 500 mg PO BIDCM [facility] Last Admin: 10/17/17 08:39 Dose: 500 mg Multivitamins (Multivitamin) 1 tablet PO DAILY@0800 [facility] Last Admin: 10/17/17 08:39 Dose: 1 tablet Ondansetron HCl (Zofran) 4 mg IV Q8H PRN PRN PRN Reason: Nausea Ondansetron HCl (Zofran Odt) 4 mg PO 4X/DAY PRN PRN PRN Reason: NAUSEA Oxycodone HCl (Oxyir) 5 mg PO Q4H PRN PRN PRN Reason: PAIN Last Admin: 10/17/17 08:52 Dose: 5 mg Oxycodone HCl (Oxycontin) 15 mg PO Q12 [facility] Last Admin: 10/16/17 21:34 Dose: 15 mg Promethazine HCl (Phenergan Tablet) 25 mg PO 4X/DAY PRN PRN PRN Reason: NAUSEA/VOMITING Last Admin: 10/15/17 13:40 Dose: 25 mg Rizatriptan Benzoate (Maxalt) 10 mg PO X1 PRN PRN Reason: MIGRAINE SYMPTOMS Sodium Chloride () 5 - 30 ml IV UD PRN PRN Reason: SALINE FLUSH Last Admin: 10/16/17 12:35 Dose: 10 ml Medical Necessity - Tobacco Use Smoking Status: Never smoker Assessment/Plan All Active Problems Sepsis (Acute) Cellulitis of right lower extremity (Acute) Severe sepsis (Acute) Melanoma (Acute) Acute renal insufficiency (Acute) Dental infection (Acute) Dehydration (Acute) Abdominal wall ulcer (Resolved) Colitis (Resolved) Left leg cellulitis (Resolved) Sepsis (Resolved) Surgical wound dehiscence (Resolved) 1. Sepsis: resolved present on admission improved today secondary to RLE cellulitis 2. RLE cellulitis suspect Staph or Strep vancomycin Blood cultures pending. UCx pending. monitor for another 24h before I decide to discharge or not. 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 DVT proph: LMWH Code Visit Inpatient E&M: 80745 Subs Hosp L2
--- NOTE | 2017-10-17 09:47 | PN_ITS ---
Patient Problems: Active and Suspected Problems Sepsis (Acute) Cellulitis of right lower extremity (Acute) Subjective: still with some pain in posterior right leg. Vitals/I&O's: Vital Signs Temp Pulse Resp BP Pulse Ox 36.8 C 67 18 125/68 H 100 10/17/17 03:56 10/17/17 03:56 10/17/17 03:56 10/17/17 03:56 10/17/17 03:56 Oxygen Delivery Method Room Air Weight: 96.6 kg Body Mass Index (BMI) 40.2 Intake and Output for Last 24 Hours 10/15/17 10/16/17 10/17/17 23:59 23:59 23:59 Intake Total 1080 / 1080 120 / 120 Output Total 1900 / 1900 Balance -820 / -820 120 / 120 General: Alert, No apparent distress HEENT: Atraumatic, Normocephalic Oral: Moist Mucosa, No Gingival or Mucosal Lesions/ Ulcerations Neck: No Nodes, Thyroid Normal Size and Texture Lungs: Clear to auscultation, Normal air movement, No rhonchi, No wheeze Cardiovascular: Regular rate, Regular Rhythm, Normal S1, Normal S2, No murmurs Abdomen: Bowel Sounds Present, Soft, Non Tender, Non-Distended, No Hepato- splenomegaly Extremities: No Calf Tenderness, Edema Skin: - - slight improved erythema RLE anterior as well as posteriorly extending up to just below knee medially. Psych/Mental Status: Normal Affect, Appropriate Laboratory Results 10/16/17 10:56: POC Glucose 141 H 10/16/17 16:44: POC Glucose 121 H 10/16/17 21:42: POC Glucose 167 H 10/17/17 07:12: POC Glucose 102 Current Medications Acetaminophen (Tylenol) 325 mg PO Q6H PRN PRN PRN Reason: PAIN Acetaminophen (Tylenol) 650 mg PO Q6H PRN PRN PRN Reason: Mild Pain (scale 0-3)/T>100.7 Last Admin: 10/15/17 13:41 Dose: 650 mg Albuterol Sulfate (Ventolin Aerosols) 2.5 mg INHALATION Q4H PRN PRN Reason: SOB/WHEEZING Apixaban (Eliquis) 2.5 mg PO BID [facility] Last Admin: 10/17/17 08:40 Dose: 2.5 mg Cyanocobalamin (Vitamin B12) 1,000 mcg PO DAILY@0800 [facility] Last Admin: 10/17/17 08:39 Dose: 1,000 mcg Cyclobenzaprine HCl (Flexeril) 10 mg PO QHS [facility] Last Admin: 10/16/17 21:37 Dose: 10 mg Dextrose (D50w Syringe) 0 gm IV X1 PRN; Protocol PRN Reason: Hypoglycemia Furosemide (Lasix) 40 mg PO BIDLX [facility] Last Admin: 10/17/17 08:39 Dose: 40 mg Glucagon () 1 mg IM .X1 PRN PRN Reason: Hypoglycemia Vancomycin HCl 750 mg/ Sodium (Chloride) 265 mls @ 265 mls/hr IV Q24H [facility] Last Admin: 10/16/17 12:32 Dose: 265 mls/hr Insulin Human Lispro (Humalog Kwikpen (Bkc)) 0 unit SQ TIDAC [facility] PRN Reason: Protocol Last Admin: 10/17/17 07:45 Dose: Not Given Loratadine (Claritin) 10 mg PO DAILY PRN PRN PRN Reason: ALLERGIES Magnesium Hydroxide (Milk Of Magnesia) 30 ml PO DAILY PRN PRN PRN Reason: Constipation Metformin HCl (Glucophage) 500 mg PO BIDCM [facility] Last Admin: 10/17/17 08:39 Dose: 500 mg Multivitamins (Multivitamin) 1 tablet PO DAILY@0800 [facility] Last Admin: 10/17/17 08:39 Dose: 1 tablet Ondansetron HCl (Zofran) 4 mg IV Q8H PRN PRN PRN Reason: Nausea Ondansetron HCl (Zofran Odt) 4 mg PO 4X/DAY PRN PRN PRN Reason: NAUSEA Oxycodone HCl (Oxyir) 5 mg PO Q4H PRN PRN PRN Reason: PAIN Last Admin: 10/17/17 08:52 Dose: 5 mg Oxycodone HCl (Oxycontin) 15 mg PO Q12 [facility] Last Admin: 10/16/17 21:34 Dose: 15 mg Promethazine HCl (Phenergan Tablet) 25 mg PO 4X/DAY PRN PRN PRN Reason: NAUSEA/VOMITING Last Admin: 10/15/17 13:40 Dose: 25 mg Rizatriptan Benzoate (Maxalt) 10 mg PO X1 PRN PRN Reason: MIGRAINE SYMPTOMS Sodium Chloride () 5 - 30 ml IV UD PRN PRN Reason: SALINE FLUSH Last Admin: 10/16/17 12:35 Dose: 10 ml Medical Necessity - Tobacco Use Smoking Status: Never smoker Assessment/Plan All Active Problems Sepsis (Acute) Cellulitis of right lower extremity (Acute) Severe sepsis (Acute) Melanoma (Acute) Acute renal insufficiency (Acute) Dental infection (Acute) Dehydration (Acute) Abdominal wall ulcer (Resolved) Colitis (Resolved) Left leg cellulitis (Resolved) Sepsis (Resolved) Surgical wound dehiscence (Resolved) 1. Sepsis: * resolved * present on admission * improved today * secondary to RLE cellulitis 2. RLE cellulitis * suspect Staph or Strep * vancomycin * Blood cultures pending. UCx pending. * monitor for another 24h before I decide to discharge or not. 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 DVT proph: * LMWH Code Visit Inpatient E&M: 83237 Subs Hosp L2
[2017-10-17 09:56] VITALS: BP 125/61; PULSE 67; RESP 18; TEMP 36.7; O2SAT 97
[2017-10-17] MEDS: oxyCODONE CR 15 MG Tablet PO ×2 (11:09→21:27)
[2017-10-17] MEDS: Insulin Lispro 100 UNIT/ML INSULN.PEN SQ ×2 (11:19→17:38)
--- NOTE | 2017-10-17 11:20 | NURSING ---
Lab here obtained blood sample for Vanco Trough.
[2017-10-17 11:21] LABS: Bedside Glucose 169 mg/dL (70-110)
[2017-10-17 12:44] LABS: Vancomycin, Trough Level 9.5 ug/mL (5.0-15.0)
[2017-10-17] MEDS: 0.9% NaCl Peripheral Flush Adult/Peds IV (12:47)
--- NOTE | 2017-10-17 14:46 | PCM.RX.CS ---
Consult Pharmacy has been consulted to manage selected antiobiotic: Vancomycin Type of Consult: Follow-up Suspected Infection: Skin/Soft tissue Prior Doses of Antibiotics Received/Current Regimen: VANCOMYCIN 750MG IV Q24H: 10/16 @1232 Labs: Sodium 143 mmol/L (136-145) 10/16/17 07:00 Potassium 3.8 mmol/L (3.5-5.1) 10/16/17 07:00 Chloride 107 mmol/L (98-107) 10/16/17 07:00 Carbon Dioxide 29.0 mmol/L (21.0-32.0) 10/16/17 07:00 Anion Gap 7 (5-15) 10/16/17 07:00 BUN 23 mg/dL (7-18) H 10/16/17 07:00 Creatinine 1.32 mg/dL (0.55-1.02) H 10/16/17 07:00 Est GFR (MDRD) Af Amer 51 mL/min (>60) L 10/16/17 07:00 Est GFR (MDRD) Non-Af 42 mL/min (>60) L 10/16/17 07:00 BUN/Creatinine Ratio 17.4 RATIO (10-20) 10/16/17 07:00 Glucose 118 mg/dL (74-106) H 10/16/17 07:00 Vancomycin Trough 9.5 ug/mL (5.0-15.0) 10/17/17 11:44 Weight used for dosin.6 kg Goal Trough: 10-15 mcg/mL Pharmacy Plan for Drug Dosing: The patient had a trough drawn which resulted in a value of 9.5 (23.5hrs from last dose given). The patient does have a trough goal of 10, but per progress note, it appears the patient is improving. Since the patient is improving, will continue the current dose of vancomycin and draw another trough to assess at a later point. PLAN/RECOMMENDATIONS 1. Continue vancomycin 750mg IV Q24hrs 2. Trough scheduled 10/21/17 @1130 to reassess dosing scheme 3. Pharmacy Service will continue to monitor and adjust dosing as required.
[2017-10-17 16:11] LABS: Bedside Glucose 171 mg/dL (70-110)
[2017-10-17 20:25] VITALS: BP 128/62; PULSE 80; RESP 16; TEMP 37; O2SAT 94
[2017-10-17 21:35] LABS: Bedside Glucose 160 mg/dL (70-110)
[2017-10-18 03:15] VITALS: BP 125/55; PULSE 72; RESP 18; TEMP 36.7; O2SAT 98
[2017-10-18] MEDS: oxyCODONE 5 MG Tablet PO ×3 (04:44→17:09)
[2017-10-18 06:03] LABS: Absolute Lymphocyte Count 0.94 X10^3/ul (0.83-4.51); Absolute Neutrophil Count 3.2 X10^3/uL (2.0-7.7); Basophil# 0.02 X10^3/uL; Basophil% 0.4 % (0-1); Eosinophil# 0.21 X10^3/uL; Eosinophils% 4.4 % (0-5); Hematocrit 35.8 % (37-47); Hemoglobin 11.4 g/dl (12.0-15.0); Lymphocyte # 0.94 X10^3/ul (4.0); Lymphocyte % 19.6 % (19-41); Mean Corp Hgb Conc 31.8 g/gl (32-36); Mean Corpuscular Hgb 30.3 pg (27.0-32.0); Mean Corpuscular Volume 95.2 fL (81-99); Mean Platelet Vol. 9.7 fl (6.2-12.0); Monocyte# 0.41 X10^3/uL; Monocyte% 8.6 % (0-10); Neutrophil # 3.19 X10^3/uL (2.7-7.7); Neutrophil % 66.6 % (47-70); Platelet Count 145 K/mm3 (150-450); RBC Distribution Width CV 13.8 % (11.6-14.6); RBC Distribution Width SD 45.4 fl (35.1-43.9); Red Blood Count 3.76 M/mm3 (4.2-5.4); White Blood Count 4.8 K/mm3 (4.4-11.0)
[2017-10-18 06:20] LABS: POSITIVE COUNT NO; POSITIVE DIFFERENTIAL NO; POSITIVE MORPHOLOGY NO
[2017-10-18 06:30] LABS: Anion Gap 6 (5-15); BUN 35 mg/dL (7-18); BUN/Creat Ratio 21.9 RATIO (10-20); Calcium,Total 8.6 mg/dL (8.5-10.1); Chloride 104 mmol/L (98-107); EST Glomerular Filtration Rate 34 mL/min (>60); Est Glom Filt Rate - Afr Amer 41 mL/min (>60); Estimated Creatinine Clearance 23.98 ml/min; Glucose 140 mg/dL (74-106); Potassium 4.1 mmol/L (3.5-5.1); Sodium Level 143 mmol/L (136-145)
[2017-10-18 06:31] LABS: Bedside Glucose 137 mg/dL (70-110)
[2017-10-18] MEDS: 0.9% NaCl Peripheral Flush Adult/Peds IV (06:33)
[2017-10-18 08:35] VITALS: BP 128/67; PULSE 74; RESP 18; TEMP 37.4; O2SAT 98
[2017-10-18] MEDS: Cyanocobalamin 500 MCG Tablet 1000 MCG PO (08:38)
[2017-10-18] MEDS: Multivitamins,Therapeutic Tablet 1 TABLET PO (08:38)
[2017-10-18] MEDS: Furosemide 40 MG Tablet PO ×2 (08:39→17:05)
[2017-10-18] MEDS: APIXABAN 2.5 MG TABLET PO (08:39)
--- NOTE | 2017-10-18 10:06 | PCM.PN.HOSP ---
Patient Problems: Active and Suspected Problems Cellulitis of right lower extremity (Acute) Subjective: less pain and redness in RLE. Vitals/I&O's: Vital Signs Temp Pulse Resp BP Pulse Ox 37.4 C H 74 18 128/67 H 98 10/18/17 08:35 10/18/17 08:35 10/18/17 08:35 10/18/17 08:35 10/18/17 08:35 Oxygen Delivery Method Room Air Weight: 96.6 kg Body Mass Index (BMI) 40.2 Intake and Output for Last 24 Hours 10/16/17 10/17/17 10/18/17 23:59 23:59 23:59 Intake Total 1080 / 1080 1100 / 1100 Output Total 1900 / 1900 500 / 500 Balance -820 / -820 600 / 600 General: Alert, No apparent distress HEENT: Atraumatic, Normocephalic Extremities: Edema, Tenderness Skin: - - decreased erythema RLE. Psych/Mental Status: Normal Affect, Appropriate Laboratory Results 10/17/17 11:13: POC Glucose 169 H 10/17/17 11:44: Vancomycin Trough 9.5 10/17/17 16:06: POC Glucose 171 H 10/17/17 21:10: POC Glucose 160 H 10/18/17 05:50: WBC 4.8, RBC 3.76 L, Hgb 11.4 L, Hct 35.8 L, MCV 95.2, MCH 30.3, MCHC 31.8 L, RDW 13.8, RDW Differential 45.4 H, Plt Count 145 L, MPV 9.7, Immature Gran % (Auto) 0.400, Neut % (Auto) 66.6, Lymph % (Auto) 19.6, [place] % (Auto) 8.6, Eos % (Auto) 4.4, Baso % (Auto) 0.4, Absolute Neuts (auto) 3.2, Absolute Lymphs (auto) 0.94, Total Counted Not Reportable 10/18/17 05:50: Sodium 143, Potassium 4.1, Chloride 104, Carbon Dioxide 33.0 H, Anion Gap 6, BUN 35 H, Creatinine 1.60 H, Estim Creat Clear Calc 23.98, Est GFR (MDRD) Af Amer 41 L, Est GFR (MDRD) Non-Af 34 L, BUN/Creatinine Ratio 21.9 H, Glucose 140 H, Calcium 8.6 10/18/17 06:25: POC Glucose 137 H Current Medications Acetaminophen (Tylenol) 325 mg PO Q6H PRN PRN PRN Reason: PAIN Acetaminophen (Tylenol) 650 mg PO Q6H PRN PRN PRN Reason: Mild Pain (scale 0-3)/T>100.7 Last Admin: 10/15/17 13:41 Dose: 650 mg Albuterol Sulfate (Ventolin Aerosols) 2.5 mg INHALATION Q4H PRN PRN Reason: SOB/WHEEZING Apixaban (Eliquis) 2.5 mg PO BID [facility] Last Admin: 10/18/17 08:39 Dose: 2.5 mg Cyanocobalamin (Vitamin B12) 1,000 mcg PO DAILY@0800 [facility] Last Admin: 10/18/17 08:38 Dose: 1,000 mcg Cyclobenzaprine HCl (Flexeril) 10 mg PO QHS [facility] Last Admin: 10/17/17 21:27 Dose: 10 mg Dextrose (D50w Syringe) 0 gm IV X1 PRN; Protocol PRN Reason: Hypoglycemia Furosemide (Lasix) 40 mg PO BIDLX [facility] Last Admin: 10/18/17 08:39 Dose: 40 mg Glucagon () 1 mg IM .X1 PRN PRN Reason: Hypoglycemia Vancomycin HCl 750 mg/ Sodium (Chloride) 265 mls @ 265 mls/hr IV Q24H [facility] Last Admin: 10/17/17 12:46 Dose: 265 mls/hr Insulin Human Lispro (Humalog Kwikpen (Bkc)) 0 unit SQ TIDAC [facility] PRN Reason: Protocol Last Admin: 10/18/17 06:33 Dose: Not Given Loratadine (Claritin) 10 mg PO DAILY PRN PRN PRN Reason: ALLERGIES Magnesium Hydroxide (Milk Of Magnesia) 30 ml PO DAILY PRN PRN PRN Reason: Constipation Metformin HCl (Glucophage) 500 mg PO BIDCM [facility] Last Admin: 10/18/17 08:38 Dose: 500 mg Multivitamins (Multivitamin) 1 tablet PO DAILY@0800 [facility] Last Admin: 10/18/17 08:38 Dose: 1 tablet Ondansetron HCl (Zofran) 4 mg IV Q8H PRN PRN PRN Reason: Nausea Ondansetron HCl (Zofran Odt) 4 mg PO 4X/DAY PRN PRN PRN Reason: NAUSEA Oxycodone HCl (Oxyir) 5 mg PO Q4H PRN PRN PRN Reason: PAIN Last Admin: 10/18/17 08:50 Dose: 5 mg Oxycodone HCl (Oxycontin) 15 mg PO Q12 [facility] Last Admin: 10/17/17 21:27 Dose: 15 mg Promethazine HCl (Phenergan Tablet) 25 mg PO 4X/DAY PRN PRN PRN Reason: NAUSEA/VOMITING Last Admin: 10/15/17 13:40 Dose: 25 mg Rizatriptan Benzoate (Maxalt) 10 mg PO X1 PRN PRN Reason: MIGRAINE SYMPTOMS Sodium Chloride () 5 - 30 ml IV UD PRN PRN Reason: SALINE FLUSH Last Admin: 10/18/17 06:33 Dose: 10 ml Medical Necessity - Tobacco Use Smoking Status: Never smoker Assessment/Plan All Active Problems Sepsis (Acute) Cellulitis of right lower extremity (Acute) Severe sepsis (Acute) Melanoma (Acute) Acute renal insufficiency (Acute) Dental infection (Acute) Dehydration (Acute) Abdominal wall ulcer (Resolved) Colitis (Resolved) Left leg cellulitis (Resolved) Sepsis (Resolved) Surgical wound dehiscence (Resolved) 1. Sepsis: resolved present on admission secondary to RLE cellulitis 2. 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 CKD 3 Creatinine up to 1.6 today Follow up as outpt. 5. DVT proph: LMWH
--- NOTE | 2017-10-18 10:09 | PN_ITS ---
Patient Problems: Active and Suspected Problems Cellulitis of right lower extremity (Acute) Subjective: less pain and redness in RLE. Vitals/I&O's: Vital Signs Temp Pulse Resp BP Pulse Ox 37.4 C H 74 18 128/67 H 98 10/18/17 08:35 10/18/17 08:35 10/18/17 08:35 10/18/17 08:35 10/18/17 08:35 Oxygen Delivery Method Room Air Weight: 96.6 kg Body Mass Index (BMI) 40.2 Intake and Output for Last 24 Hours 10/16/17 10/17/17 10/18/17 23:59 23:59 23:59 Intake Total 1080 / 1080 1100 / 1100 Output Total 1900 / 1900 500 / 500 Balance -820 / -820 600 / 600 General: Alert, No apparent distress HEENT: Atraumatic, Normocephalic Extremities: Edema, Tenderness Skin: - - decreased erythema RLE. Psych/Mental Status: Normal Affect, Appropriate Laboratory Results 10/17/17 11:13: POC Glucose 169 H 10/17/17 11:44: Vancomycin Trough 9.5 10/17/17 16:06: POC Glucose 171 H 10/17/17 21:10: POC Glucose 160 H 10/18/17 05:50: WBC 4.8, RBC 3.76 L, Hgb 11.4 L, Hct 35.8 L, MCV 95.2, MCH 30.3 , MCHC 31.8 L, RDW 13.8, RDW Differential 45.4 H, Plt Count 145 L, MPV 9.7, Immature Gran % (Auto) 0.400, Neut % (Auto) 66.6, Lymph % (Auto) 19.6, Davison % ( Auto) 8.6, Eos % (Auto) 4.4, Baso % (Auto) 0.4, Absolute Neuts (auto) 3.2, Absolute Lymphs (auto) 0.94, Total Counted Not Reportable 10/18/17 05:50: Sodium 143, Potassium 4.1, Chloride 104, Carbon Dioxide 33.0 H, Anion Gap 6, BUN 35 H, Creatinine 1.60 H, Estim Creat Clear Calc 23.98, Est GFR (MDRD) Af Amer 41 L, Est GFR (MDRD) Non-Af 34 L, BUN/Creatinine Ratio 21.9 H, Glucose 140 H, Calcium 8.6 10/18/17 06:25: POC Glucose 137 H Current Medications Acetaminophen (Tylenol) 325 mg PO Q6H PRN PRN PRN Reason: PAIN Acetaminophen (Tylenol) 650 mg PO Q6H PRN PRN PRN Reason: Mild Pain (scale 0-3)/T>100.7 Last Admin: 10/15/17 13:41 Dose: 650 mg Albuterol Sulfate (Ventolin Aerosols) 2.5 mg INHALATION Q4H PRN PRN Reason: SOB/WHEEZING Apixaban (Eliquis) 2.5 mg PO BID [facility] Last Admin: 10/18/17 08:39 Dose: 2.5 mg Cyanocobalamin (Vitamin B12) 1,000 mcg PO DAILY@0800 [facility] Last Admin: 10/18/17 08:38 Dose: 1,000 mcg Cyclobenzaprine HCl (Flexeril) 10 mg PO QHS [facility] Last Admin: 10/17/17 21:27 Dose: 10 mg Dextrose (D50w Syringe) 0 gm IV X1 PRN; Protocol PRN Reason: Hypoglycemia Furosemide (Lasix) 40 mg PO BIDLX [facility] Last Admin: 10/18/17 08:39 Dose: 40 mg Glucagon () 1 mg IM .X1 PRN PRN Reason: Hypoglycemia Vancomycin HCl 750 mg/ Sodium (Chloride) 265 mls @ 265 mls/hr IV Q24H [facility] Last Admin: 10/17/17 12:46 Dose: 265 mls/hr Insulin Human Lispro (Humalog Kwikpen (Bkc)) 0 unit SQ TIDAC [facility] PRN Reason: Protocol Last Admin: 10/18/17 06:33 Dose: Not Given Loratadine (Claritin) 10 mg PO DAILY PRN PRN PRN Reason: ALLERGIES Magnesium Hydroxide (Milk Of Magnesia) 30 ml PO DAILY PRN PRN PRN Reason: Constipation Metformin HCl (Glucophage) 500 mg PO BIDCM [facility] Last Admin: 10/18/17 08:38 Dose: 500 mg Multivitamins (Multivitamin) 1 tablet PO DAILY@0800 [facility] Last Admin: 10/18/17 08:38 Dose: 1 tablet Ondansetron HCl (Zofran) 4 mg IV Q8H PRN PRN PRN Reason: Nausea Ondansetron HCl (Zofran Odt) 4 mg PO 4X/DAY PRN PRN PRN Reason: NAUSEA Oxycodone HCl (Oxyir) 5 mg PO Q4H PRN PRN PRN Reason: PAIN Last Admin: 10/18/17 08:50 Dose: 5 mg Oxycodone HCl (Oxycontin) 15 mg PO Q12 [place] Last Admin: 10/17/17 21:27 Dose: 15 mg Promethazine HCl (Phenergan Tablet) 25 mg PO 4X/DAY PRN PRN PRN Reason: NAUSEA/VOMITING Last Admin: 10/15/17 13:40 Dose: 25 mg Rizatriptan Benzoate (Maxalt) 10 mg PO X1 PRN PRN Reason: MIGRAINE SYMPTOMS Sodium Chloride () 5 - 30 ml IV UD PRN PRN Reason: SALINE FLUSH Last Admin: 10/18/17 06:33 Dose: 10 ml Medical Necessity - Tobacco Use Smoking Status: Never smoker Assessment/Plan All Active Problems Sepsis (Acute) Cellulitis of right lower extremity (Acute) Severe sepsis (Acute) Melanoma (Acute) Acute renal insufficiency (Acute) Dental infection (Acute) Dehydration (Acute) Abdominal wall ulcer (Resolved) Colitis (Resolved) Left leg cellulitis (Resolved) Sepsis (Resolved) Surgical wound dehiscence (Resolved) 1. Sepsis: * resolved * present on admission * secondary to RLE cellulitis 2. 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 CKD 3 * Creatinine up to 1.6 today * Follow up as outpt. 5. DVT proph: * LMWH
--- NOTE | 2017-10-18 10:13 | PCM.DC ---
- Discharge Diagnoses Current Active Problems: Current Active and Chronic Problems Cellulitis of right lower extremity (Acute) You will use the following diet at home:: Calorie/Carbohydrate Controlled (specify 1200, 1400, etc) - 1800 Your food should be the consistency of: Regular Your liquids should be the consistency of: Regular/Thin Discharge Activity: Return to Normal Activity Call your doctor if you observe: Fever of 101 or Higher, Shortness of breath, - - increased pain, swelling and erythema of legs. Allergies/Adverse Reactions: Allergies clindamycin Allergy (Verified 10/15/17 09:50) Other meperidine HCl [From Demerol] Allergy (Verified 10/15/17 09:50) Other Penicillins Allergy (Verified 10/15/17 09:50) Itching adhesive tape Adverse Reaction (Verified 10/15/17 09:50) Other BLISTERS aspirin Adverse Reaction (Verified 10/15/17 09:50) Other diazepam [From Valium] Adverse Reaction (Verified 10/15/17 09:50) Nausea/Vom/Diarrhea egg Adverse Reaction (Verified 10/15/17 09:50) Diarrhea morphine Adverse Reaction (Verified 10/15/17 09:50) Nausea/Vom/Diarrhea sulfamethoxazole [From Bactrim] Adverse Reaction (Verified 10/15/17 09:50) Nausea/Vom/Diarrhea trimethoprim [From Bactrim] Adverse Reaction (Verified 10/15/17 09:50) Nausea/Vom/Diarrhea Medications to take at Discharge Acetaminophen [Tylenol] 325 mg PO Q6H PRN PRN 05/29/15 Cyanocobalamin [Vitamin B12] 1,000 mcg PO DAILY@0800 05/29/15 Cyclobenzaprine [Flexeril] 10 mg PO QHS 05/29/15 Metformin HCl [Glucophage] 500 mg PO BIDCM 05/29/15 Apixaban [Eliquis] 2.5 mg PO BID 06/12/15 Multivitamin [Daily Multiple Vitamin] 1 tab PO DAILY 06/12/15 Furosemide [Lasix] 40 mg PO BID 07/16/15 Oxycodone [Oxyir] 5 mg PO Q4H PRN PRN #60 tablet 07/20/15 proMETHazine tablet [Phenergan tablet] 25 mg PO 4X/DAY PRN PRN #20 tablet 07/20/15 Albuterol IH (ProAir) [Proair Hfa] 2 puff INHALATION Q6H PRN PRN 05/27/16 Cetirizine HCl [Zyrtec] 10 mg PO PRN PRN 05/27/16 Ondansetron HCl [Zofran] 4 mg PO 4X/DAY PRN PRN 05/27/16 Sumatriptan Succinate [Imitrex] 50 mg PO .X1 PRN 05/27/16 Oxycodone HCl [Oxycodone HCl ER] 15 mg PO BID 12/25/16 Cephalexin [Keflex] 500 mg PO Q8 #15 cap 10/18/17 Doxycycline 100 mg PO BID #10 cap 10/18/17 The following prescriptions were given: Cephalexin [Keflex] 500 mg PO Q8 #15 cap Doxycycline 100 mg PO BID #10 cap Primary Care Physician: Chente Daigle MD [Primary Care Provider] - Within 2 Weeks Test Results: Please Follow Up With: Isidro Estevez DO When: next scheduled appointment Proposed Discharge Date: 10/18/17
--- NOTE | 2017-10-18 10:17 | DS.PCM_ITS ---
Discharge Date and Diagnosis - Problem List Patient Problems: Active and Suspected Problems Cellulitis of right lower extremity (Acute) Date of Admission: 10/15/17 Date of Discharge: 10/18/17 - Primary Discharge Diagnosis Active and Suspected Problems Cellulitis of right lower extremity (Acute) - Secondary Discharge Diagnosis Chronic Problems Asthma (Chronic) Reported, severity unknown History of DVT (deep vein thrombosis) (Chronic) History of pulmonary embolism (Chronic) Type II diabetes mellitus (Chronic) Cancer of ovary (Chronic) Anemia (Chronic) Venous insufficiency (Chronic) Poor dentition (Chronic) Hospital Course and Treatment Imaging Results: Clinical Impression(s) from Imaging Studies Chest X-Ray 10/15/17 10:15 IMPRESSION: Mild degree of vascular congestion. Electronically Signed: Mitchel Diaz MD at 11:17 EDT Tel [phone], Service support , Tibia/Fibula X-Ray 10/15/17 10:22 IMPRESSION: Diffuse soft tissue swelling. Electronically Signed: Mitchel Diaz MD at 11:16 EDT Tel [phone], Service support , Operations: None Procedures: None Summary of Care Provided: The patient is a 72 year old F presents with sepsis and RLE cellulitis. Patient was started on Vancomycin. His cellulitis slowly improved, and today, the patient can be safely discharged to home with Doxycycline and Keflex. 1. Sepsis: * resolved * present on admission * secondary to RLE cellulitis 2. 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 CKD 3 * Creatinine up to 1.6 today * Follow up as outpt.[] Discharge Diet: 1800 Calorie Control Diet Discharge Activity: Return to Normal Activity Call your doctor if you observe: Fever of 101 or Higher, Shortness of breath, - - increased pain, swelling and erythema of legs. Home Medications: Medications to take at Discharge Acetaminophen [Tylenol] 325 mg PO Q6H PRN PRN 05/29/15 Cyanocobalamin [Vitamin B12] 1,000 mcg PO DAILY@0800 05/29/15 Cyclobenzaprine [Flexeril] 10 mg PO QHS 05/29/15 Metformin HCl [Glucophage] 500 mg PO BIDCM 05/29/15 Apixaban [Eliquis] 2.5 mg PO BID 06/12/15 Multivitamin [Daily Multiple Vitamin] 1 tab PO DAILY 06/12/15 Furosemide [Lasix] 40 mg PO BID 07/16/15 Oxycodone [Oxyir] 5 mg PO Q4H PRN PRN #60 tablet 07/20/15 proMETHazine tablet [Phenergan tablet] 25 mg PO 4X/DAY PRN PRN #20 tablet Albuterol IH (ProAir) [Proair Hfa] 2 puff INHALATION Q6H PRN PRN 05/27/16 Cetirizine HCl [Zyrtec] 10 mg PO PRN PRN 05/27/16 Ondansetron HCl [Zofran] 4 mg PO 4X/DAY PRN PRN 05/27/16 Sumatriptan Succinate [Imitrex] 50 mg PO .X1 PRN 05/27/16 Oxycodone HCl [Oxycodone HCl ER] 15 mg PO BID 12/25/16 Cephalexin [Keflex] 500 mg PO Q8 #15 cap 10/18/17 Doxycycline 100 mg PO BID #10 cap 10/18/17 Following Prescrptions Were Given to Patient: Cephalexin [Keflex] 500 mg PO Q8 #15 cap Doxycycline 100 mg PO BID #10 cap Primary Care Physician: Chente Daigle MD [Primary Care Provider] - Within 2 Weeks Please Follow Up With: Isidro Estevez DO When: next scheduled appointment Disposition: Home Minutes spent on discharge:: 32 Patient Condition:: Fair Medical Necessity - Tobacco Use Smoking Status: Never smoker Meaningful Use Info Meaningful Use Diagnoses (Choose all that apply): None applicable Code Visit Inpatient E&M: 33270 Disch Hosp
[2017-10-18] MEDS: oxyCODONE CR 15 MG Tablet PO (10:52)
[2017-10-18 11:25] LABS: Bedside Glucose 139 mg/dL (70-110)
[2017-10-18] MEDS: Cephalexin 500 MG Capsule PO (14:29)
[2017-10-18] MEDS: Doxycycline 100 MG CAPSULE PO (14:30)
[2017-10-18 14:31] VITALS: BP 131/83; PULSE 88; RESP 18; TEMP 37.4; O2SAT 98
--- NOTE | 2017-10-18 15:16 | CHAPLAIN ---
Type of Pastoral Visit _x__ Initial Visit ___ Follow-up Visit ___ On-call Visit ___ General Patient Visit ___ Spiritual Assessment ___ Family Conference ___ Bereavement ___ Rapid Response ___ Code Blue ___ Other (describe below) Pastoral Care Referral From _x__ Patient ___ Family ___ Nurse ___ Physician ___ [employer] Solution Specialist ___ Bartender ___ Other (describe below) Sacrament/Intervention _x__ Active listening ___ Anointing ___ Denominational ___ Bereavement ___ Communion _x__ Radha exploration ___ _x__ Life review _x__ Prayer ___ Reconciliation ___ Sacrament of Sick ___ Supportive presence ___ Wedding ___ Other (describe below) Pastoral Comments
[2017-10-18 16:16] LABS: Bedside Glucose 176 mg/dL (70-110)
[2017-10-18] MEDS: Insulin Lispro 100 UNIT/ML INSULN.PEN SQ (17:05)
[2017-10-18 17:50] VITALS: BP 131/83; PULSE 88; RESP 18; TEMP 37.4; O2SAT 98
--- NOTE | 2017-10-19 15:57 | CASEMGMT ---
BRIT RAMON Discharge Follow-up Phone Call: HUSAM: Vinod Strata: 3 Call Date: 10/19/17 Discharge Date: 10/18/17 Time of Call: 1557 Duration: 3 min Admitting Diagnosis: cellulitis BRIT RAMON completed follow-up phone call after recent hospitalization. Patient states that she is feeling ok, just doing to much. Patient had no questions regarding discharge instructions or medication. Patient was able to lemon picker prescriptions without any problems. Patient states that she will schedule follow-up appt with PCP.
== END 2017-10-18 17:50 | disposition home or self-care (01) | DRG 872 ==
LOC: ED 10:25 → MS3 11:58
PROVIDERS: Emergency Provider Emergency Medicine; Family Provider Family Medicine; PCP Family Medicine
DX: A41.9 Sepsis, unspecified organism (principal); L03.115 Cellulitis of right lower limb; N18.3 Chronic kidney disease, stage 3 (moderate); C52 Malignant neoplasm of vagina; Z86.718 Personal history of other venous thrombosis and embolism; E11.22 Type 2 diabetes mellitus with diabetic chronic kidney disease; Z79.84 Long term (current) use of oral hypoglycemic drugs; I87.2 Venous insufficiency (chronic) (peripheral); Z86.711 Personal history of pulmonary embolism; J45.909 Unspecified asthma, uncomplicated
CPT/HCPCS: 36415; 71045; 73590; 80048; 80053; 80202; 81001; 82962; 83605; 85025; 85610; 85730; 87040; 87086; 93005; 99283; J7030; J7040; J7050; A4216; J0744

== ENCOUNTER 2018-04-15 09:30 | Outpatient (RCR) | payer MEDICARE, SELFPAY ==
[2018-04-01 09:32] VITALS: BP 158/74; PULSE 88; RESP 16; TEMP 36.5; BMI 40.8
--- NOTE | 2018-04-01 10:57 | HP.PCM_ITS ---
(1) CSD (cat scratch disease) Status: Acute Current Visit: Yes Code(s): A28.1 - Cat-scratch disease (2) History of DVT (deep vein thrombosis) Status: Chronic Current Visit: No Code(s): Z86.718 - Personal history of other venous thrombosis and embolism (3) History of pulmonary embolism Status: Chronic Current Visit: No Code(s): Z86.711 - Personal history of pulmonary embolism (4) Type II diabetes mellitus Status: Chronic Current Visit: No Code(s): E11.9 - Type 2 diabetes mellitus without complications (5) Venous insufficiency Status: Chronic Current Visit: No (6) Bilateral lower extremity edema Status: Chronic Current Visit: Yes Code(s): R60.0 - Localized edema History of Present Illness Chief Complaint: Surgical wound dehiscence History of Wound: 72-year-old white female that came to us with a cat bite and scratch to the right lower extremity. Seen by her primary care doctor and placed on Augmentin. Is already been on the antibiotic for a full week and still has severe cellulitis and very warm to touch and swelling in her right lower leg. We will reculture of the leg today wounds appear to be mostly closed she is sleeping through her skin from the edema. Patient denies fever chills nausea vomiting history of DVTs and pulmonary embolisms is on Eliquis at this time. We will repeat venous studies and arterial flow which appears to not have ever been done to her lower extremities. Past Medical History Past Medical History: Chronic Problems Bilateral lower extremity edema (Chronic) Asthma (Chronic) Reported, severity unknown History of DVT (deep vein thrombosis) (Chronic) History of pulmonary embolism (Chronic) Type II diabetes mellitus (Chronic) Cancer of ovary (Chronic) Anemia (Chronic) Venous insufficiency (Chronic) Poor dentition (Chronic) Past Medical History: Cat scratch disease Surgical History: cholecystectomy, hysterectomy - For uterine fibroids, total hip arthroplasty - Right, total knee arthroplasty - Left, - - Surgery for bilateral carpal tunnel syndrome. Resection of ovarian cancer at [facility] in 2015, debridement of the abdominal wall with wound closure by Dr. Garza in June 2015 Allergies/Adverse Reactions: Allergies clindamycin Allergy (Verified 10/15/17 09:50) Other meperidine HCl [From Demerol] Allergy (Verified 10/15/17 09:50) Other Penicillins Allergy (Verified 10/15/17 09:50) Itching adhesive tape Adverse Reaction (Verified 10/15/17 09:50) Other BLISTERS aspirin Adverse Reaction (Verified 10/15/17 09:50) Other diazepam [From Valium] Adverse Reaction (Verified 10/15/17 09:50) Nausea/Vom/Diarrhea egg Adverse Reaction (Verified 10/15/17 09:50) Diarrhea morphine Adverse Reaction (Verified 10/15/17 09:50) Nausea/Vom/Diarrhea sulfamethoxazole [From Bactrim] Adverse Reaction (Verified 10/15/17 09:50) Nausea/Vom/Diarrhea trimethoprim [From Bactrim] Adverse Reaction (Verified 10/15/17 09:50) Nausea/Vom/Diarrhea Home Medications: Ambulatory Orders Medication Instructions Recorded Acetaminophen [Tylenol] 325 mg PO Q6H PRN PRN 05/29/15 Cyanocobalamin [Vitamin B12] 1,000 mcg PO DAILY@0800 05/29/15 Cyclobenzaprine [Flexeril] 10 mg PO QHS 05/29/15 Metformin HCl [Glucophage] 500 mg PO BIDCM 05/29/15 Apixaban [Eliquis] 2.5 mg PO BID 06/12/15 Multivitamin [Daily Multiple 1 tab PO DAILY 06/12/15 Vitamin] Furosemide [Lasix] 40 mg PO BID 07/16/15 Oxycodone [Oxyir] 5 mg PO Q4H PRN PRN #60 tablet 07/20/15 proMETHazine tablet [Phenergan 25 mg PO 4X/DAY PRN PRN #20 tablet 07/20/15 tablet] Albuterol IH (ProAir) [Proair Hfa] 2 puff INHALATION Q6H PRN PRN 05/27/16 Cetirizine HCl [Zyrtec] 10 mg PO PRN PRN 05/27/16 Ondansetron HCl [Zofran] 4 mg PO 4X/DAY PRN PRN 05/27/16 Sumatriptan Succinate [Imitrex] 50 mg PO .X1 PRN 05/27/16 Oxycodone HCl [Oxycodone HCl ER] 15 mg PO BID 12/25/16 Cephalexin [Keflex] 500 mg PO Q8 #15 cap 10/18/17 Doxycycline 100 mg PO BID #10 cap 10/18/17 Ascorbic Acid 1,000 mg PO DAILY 12/14/18 Benadryl 25 mg PO DAILY 04/01/18 Cholecalciferol (VIT D3) [Vitamin 2,000 iu PO DAILY 04/01/18 D3] - Family History Maternal No pertinent history, - - no cancer Paternal No pertinent history Smoking Status: Never smoker Review of Systems Constitutional: Denies: Chills, Fever Eyes: Denies: Blurred vision, Drainage, Pain HEENT: Denies: Difficulty Hearing, Difficulty Swallowing, Sore Throat, Visual Changes Cardiovascular: Denies: Chest Pain, Palpitations, Syncope Respiratory: Denies: Cough, Shortness of Breath Gastrointestinal: Denies: Abdominal Pain, Nausea, Vomiting Genitourinary: Denies: Dysuria, Frequency Musculoskeletal: Denies: Joint Pain, Muscle pain Skin: Reports: Wounds - Right lower leg blister and superficial open areas on the top layer skin erythema and warm to touch. Denies: Jaundice, Rash Neurological: Denies: Balance problems, Change in Speech, Difficulty swallowing, Focal weakness Psychiatric: Denies: Anxiety, Depression Endocrine: Denies: Change in Body Habitus Hematologic/ Lymphatic: Denies: Adenopathy - Physical Exam Vital Signs Temp Pulse Resp BP 97.7 F L 88 16 158/74 H 04/01/18 09:32 04/01/18 09:32 04/01/18 09:32 04/01/18 09:32 General: Oriented x3, Cooperative, Well developed HEENT: Atraumatic, PERRLA Oral: Moist Mucosa Neck: Supple, No JVD Lungs: Clear to auscultation, Normal air movement Cardiovascular: Regular rate, Regular Rhythm Abdomen: Bowel Sounds Present, Soft, Non Tender, No Hepato-splenomegaly Extremities: No clubbing, No edema, Tenderness Skin: Ulcer/ Wound - Right lower leg swelling and superficial open areas on the almeida area and a blister left her almeida on the inner aspect of her left lower leg Wound Measurements and Assessment WC - Nurse 1 - General Ulcer Measurement Start: 04/01/18 09:31 Freq: Status: Active Protocol: Activity Type Activity Date Activity User E-Sign Co-Sign Detail Recorded Client Recorded Date Recorded By Document 04/01/18 09:32 AN [id number] 04/01/18 09:47 AN 04/01/18 09:32 Wound Center Nurse 1 [Ulcer Assessment] right lower leg -Current Size (cm) - Length 1.5 -Current Size (cm) - Width 1.3 -Current Size (cm) - Depth 0.1 -Total Square Cm 1.95 -Date of Last Picture (Recall this 04/01/18 field) -Photo Taken Yes -Epithelialization None Present -Tunneling No -Undermining/Tunneling No -Circular Undermining No -Classification - Thickness Full Thickness without Exposed Support Structure -Exudate Amt Medium (34-66%) -Exudate Type Serosanguineous -Wound Margin Distinct, Outline Attached -Granulation Amt Medium (34-66%) -Granulation Quality Red -Slough/Fibrin Yes -Necrosis Amt Medium (34-66%) -Necrotic Tissue Type Adherent Slough -Structure Exposed None/Limited to Skin Breakdown -Texture (Kanwal-wound Skin Appearance) Assessed Localized Edema -Moisture (Kanwal-wound Skin Appearance Assessed ) Dry/Scaly -Color (Kanwal-wound Skin Appearance) Assessed Erythema -Temperature (Kanwal-wound Skin Hot Appearance) -Tenderness on Palpation (Kanwal-wound Yes Skin Appearance) -Ulcer Cleansing Rinsed/ Irrigated with Saline -Foul Odor after Cleansing No -Anesthetic Used 4% Lidocaine Solution [Edema Assessment] -Right Calf (cm) 50 -Right Ankle (cm) 29 -Left Calf (cm) 55 -Left Ankle (cm) 33 WC - Nurse 2 - General Ulcer CM Notes Start: 04/01/18 09:31 Freq: Status: Active Protocol: Activity Type Activity Date Activity User E-Sign Co-Sign Detail Recorded Client Recorded Date Recorded By Document 04/01/18 10:11 MW [id number] 04/01/18 10:16 MW 04/01/18 10:11 Wound Center Nurse 2 [Procedure/Treatment] right lower leg -Time 10:12 -Correct Patient Yes -Correct Side, Site, Position Yes -Correct Procedure Yes -Procedure Performed No -Post Debridement Size (cm) - Length 1.5 -Post Debridement Size (cm) - Width 1.3 -Post Debridement Size (cm) - Depth 0.1 -Total Square Cm 1.95 -Wound/Ulcer Outcome Not Healed -Ulcer Cleansing Rinsed/ Irrigated with Saline -Foul Odor after Cleansing No -Bioengineered Tissue No -Bleeding Controlled with NA -Offloading No -Treatment Response Procedure Tolerated Well [See Physician Procedure note for Specifics] Pain Scale: 0-10 Numeric [Pain] -Is Patient Pain Free? Yes Musculoskeletal: No Tenderness to Palpation of Joints or Extremities Lymphatic: No Cervical, Supraclavicular, or Inguinal Adenopathy Neurological: Cranial nerves II-XII grossly intact, Neuro grossly intact Psych/Mental Status: Normal Affect, Appropriate Debridement Note Post-Debridement Measurements/Treatment WC - Nurse 2 - General Ulcer CM Notes Start: 04/01/18 09:31 Freq: Status: Active Protocol: Activity Type Activity Date Activity User E-Sign Co-Sign Detail Recorded Client Recorded Date Recorded By Document 04/01/18 10:11 MW [id number] 04/01/18 10:16 MW 04/01/18 10:11 Wound Center Nurse 2 right lower leg -Time 10:12 -Correct Patient Yes -Correct Side, Site, Position Yes -Correct Procedure Yes -Procedure Performed No -Post Debridement Size (cm) - Length 1.5 -Post Debridement Size (cm) - Width 1.3 -Post Debridement Size (cm) - Depth 0.1 -Total Square Cm 1.95 -Wound/Ulcer Outcome Not Healed -Ulcer Cleansing Rinsed/ Irrigated with Saline -Foul Odor after Cleansing No -Bioengineered Tissue No -Bleeding Controlled with NA -Offloading No -Treatment Response Procedure Tolerated Well Pain Scale: 0-10 Numeric Is Patient Pain Free? Yes No debridement was completed today Assessment/Plan Wound aerobic and anaerobic cultures taken also arterial brachial studies ordered to be done Active Problems CSD (cat scratch disease) (Acute) Bilateral lower extremity edema (Chronic) Assessment: Bilateral lower leg edema. Cellulitis of the right lower leg. Cat scratch disease right lower leg. Peripheral vascular. Possibly PAD Plan: Wash right lower leg with Hibiclens. Apply Xeroform dressings to the almeida and to the blister area of the right lower leg cover with gauze and tape. Layer Tubigrip to bilateral lower legs follow-up in 1 week
[2018-04-08 09:17] VITALS: BP 146/73; PULSE 86; RESP 18; TEMP 36.2; BMI 40.8
--- NOTE | 2018-04-08 11:00 | PCM.WC.PN ---
(1) CSD (cat scratch disease) Status: Acute Current Visit: Yes Code(s): A28.1 - Cat-scratch disease (2) History of DVT (deep vein thrombosis) Status: Chronic Current Visit: Yes Code(s): Z86.718 - Personal history of other venous thrombosis and embolism (3) History of pulmonary embolism Status: Chronic Current Visit: Yes Code(s): Z86.711 - Personal history of pulmonary embolism (4) Type II diabetes mellitus Status: Chronic Current Visit: Yes Code(s): E11.9 - Type 2 diabetes mellitus without complications (5) Venous insufficiency Status: Chronic Current Visit: Yes (6) Bilateral lower extremity edema Status: Chronic Current Visit: Yes Code(s): R60.0 - Localized edema Type of Wound Chief Complaint: Surgical wound dehiscence History of Wound: 72-year-old white female that came to us with a cat bite and scratch to the right lower extremity. Seen by her primary care doctor and placed on Augmentin. Is already been on the antibiotic for a full week and still has severe cellulitis and very warm to touch and swelling in her right lower leg. We will reculture of the leg today wounds appear to be mostly closed she is sleeping through her skin from the edema. Patient denies fever chills nausea vomiting history of DVTs and pulmonary embolisms is on Eliquis at this time. We will repeat venous studies and arterial flow which appears to not have ever been done to her lower extremities. Progress of Wound: Today the right medial lower leg is slightly open patient healed well on the almeida with the Xeroform swelling is much improved patient feels better she says her feet do not hurt anymore. She could be healed by next week - Physical Exam Vital Signs Temp Pulse Resp BP 97.1 F L 86 18 146/73 H 04/08/18 09:17 04/08/18 09:17 04/08/18 09:17 04/08/18 09:17 General: Oriented x3, Cooperative, Well developed HEENT: Atraumatic, PERRLA Oral: Moist Mucosa Neck: Supple, No JVD Lungs: Clear to auscultation, Normal air movement Cardiovascular: Regular rate, Regular Rhythm Abdomen: Bowel Sounds Present, Soft, Non Tender, No Hepato-splenomegaly Extremities: No clubbing, No edema Skin: Ulcer/ Wound - Right lower leg ulcer Wound Measurements and Assessment WC - Nurse 1 - General Ulcer Measurement Start: 04/01/18 09:31 Freq: Status: Active Protocol: Activity Type Activity Date Activity User E-Sign Co-Sign Detail Recorded Client Recorded Date Recorded By Document 04/08/18 09:17 RB [id number] 04/08/18 09:25 RB 04/08/18 09:17 Wound Center Nurse 1 [Ulcer Assessment] right medial lower leg -Combined with other wound No -Current Size (cm) - Length 0.1 -Current Size (cm) - Width 0.1 -Current Size (cm) - Depth 0.1 -Total Square Cm 0.01 -Epithelialization Large 67-100% -Texture (Kanwal-wound Skin Appearance) Scarring -Moisture (Kanwal-wound Skin Appearance Assessed ) -Color (Kanwal-wound Skin Appearance) Assessed -Temperature (Kanwal-wound Skin No Abnormality Appearance) (Pt Warm) -Tenderness on Palpation (Kanwal-wound No Skin Appearance) -Ulcer Cleansing Rinsed/ Irrigated with Saline -Foul Odor after Cleansing No -Anesthetic Used 5% Lidocaine Gel [Edema Assessment] -Lower Limb Edema Present Yes -Right Calf (cm) 50.4 -Right Ankle (cm) 28.5 -Left Calf (cm) 55.2 -Left Ankle (cm) 32.2 WC - Nurse 2 - General Ulcer CM Notes Start: 04/01/18 09:31 Freq: Status: Active Protocol: Activity Type Activity Date Activity User E-Sign Co-Sign Detail Recorded Client Recorded Date Recorded By Document 04/08/18 09:44 MW [id number] 04/08/18 09:48 MW 04/08/18 09:44 Wound Center Nurse 2 [Procedure/Treatment] right medial lower leg -Time 09:46 -Correct Patient Yes -Correct Side, Site, Position Yes -Correct Procedure Yes -Procedure Performed Yes -Type of Procedure Debridement -Clinical Debridement Subcutaneous -Post Debridement Size (cm) - Length 0.4 -Post Debridement Size (cm) - Width 0.4 -Post Debridement Size (cm) - Depth 0.1 -Total Square Cm 0.16 -Wound/Ulcer Outcome Not Healed -Ulcer Cleansing Rinsed/ Irrigated with Saline -Foul Odor after Cleansing No -Bioengineered Tissue No -Bleeding Controlled with Pressure -Offloading No -Treatment Response Procedure Tolerated Well [See Physician Procedure note for Specifics] Pain Scale: 0-10 Numeric [Pain] -Is Patient Pain Free? Yes Pain Scale: Adult NonVerbal [Pain] -Is Patient Pain Free? Yes Musculoskeletal: No Tenderness to Palpation of Joints or Extremities Lymphatic: No Cervical, Supraclavicular, or Inguinal Adenopathy Neurological: Cranial nerves II-XII grossly intact, Neuro grossly intact Psych/Mental Status: Normal Affect, Appropriate Debridement Note Post-Debridement Measurements/Treatment WC - Nurse 2 - General Ulcer CM Notes Start: 04/01/18 09:31 Freq: Status: Active Protocol: Activity Type Activity Date Activity User E-Sign Co-Sign Detail Recorded Client Recorded Date Recorded By Document 04/01/18 10:11 MW [id number] 04/01/18 10:16 MW Document 04/08/18 09:44 MW [id number] 04/08/18 09:48 MW 04/01/18 04/08/18 10:11 09:44 Wound Center Nurse 2 right medial lower leg -Time 10:12 09:46 -Correct Patient Yes Yes -Correct Side, Site, Position Yes Yes -Correct Procedure Yes Yes -Procedure Performed No Yes -Type of Procedure Debridement -Clinical Debridement Subcutaneous -Post Debridement Size (cm) - Length 1.5 0.4 -Post Debridement Size (cm) - Width 1.3 0.4 -Post Debridement Size (cm) - Depth 0.1 0.1 -Total Square Cm 1.95 0.16 -Wound/Ulcer Outcome Not Healed Not Healed -Ulcer Cleansing Rinsed/ Rinsed/ Irrigated with Irrigated with Saline Saline -Foul Odor after Cleansing No No -Bioengineered Tissue No No -Bleeding Controlled with NA Pressure -Offloading No No -Treatment Response Procedure Procedure Tolerated Well Tolerated Well Pain Scale: 0-10 Numeric Is Patient Pain Free? Yes Yes Pain Scale: Adult NonVerbal Is Patient Pain Free? Yes Wound debrided: Right lower medial leg Type of Debridement: Excisional debridement Anesthesia Used: 5% Lidocaine Gel Depth: Down to and including healthy tissue, in the subcutaneous layer Percentage of wound debrided: 100 Instrument Used: 3mm curette Tissue Removed: Fibrin Amount of bleeding with debridement: Mild Bleeding Controlled with: Compression and gauze Patient tolerated procedure well Assessment/Plan Active Problems CSD (cat scratch disease) (Acute) Bilateral lower extremity edema (Chronic) History of DVT (deep vein thrombosis) (Chronic) History of pulmonary embolism (Chronic) Type II diabetes mellitus (Chronic) Venous insufficiency (Chronic) Assessment: Bilateral lower leg edema. Cellulitis of the right lower leg. Cat scratch disease right lower leg. Peripheral vascular. Possibly PAD Plan: Wash right lower leg with Hibiclens. Apply Xeroform dressings to the area of the right lower leg cover with gauze and tape. Layer Tubigrip to bilateral lower legs follow-up in 1 week
[2018-04-15 09:16] VITALS: BP 132/72; PULSE 95; RESP 18; TEMP 36.2; BMI 40.8
--- NOTE | 2018-04-15 09:46 | PCM.WC.PN ---
(1) CSD (cat scratch disease) Status: Acute Current Visit: Yes Code(s): A28.1 - Cat-scratch disease (2) History of DVT (deep vein thrombosis) Status: Chronic Current Visit: Yes Code(s): Z86.718 - Personal history of other venous thrombosis and embolism (3) History of pulmonary embolism Status: Chronic Current Visit: Yes Code(s): Z86.711 - Personal history of pulmonary embolism (4) Type II diabetes mellitus Status: Chronic Current Visit: Yes Code(s): E11.9 - Type 2 diabetes mellitus without complications (5) Venous insufficiency Status: Chronic Current Visit: Yes (6) Bilateral lower extremity edema Status: Chronic Current Visit: Yes Code(s): R60.0 - Localized edema Type of Wound Chief Complaint: Surgical wound dehiscence History of Wound: 72-year-old white female that came to us with a cat bite and scratch to the right lower extremity. Seen by her primary care doctor and placed on Augmentin. Is already been on the antibiotic for a full week and still has severe cellulitis and very warm to touch and swelling in her right lower leg. We will reculture of the leg today wounds appear to be mostly closed she is sleeping through her skin from the edema. Patient denies fever chills nausea vomiting history of DVTs and pulmonary embolisms is on Eliquis at this time. We will repeat venous studies and arterial flow which appears to not have ever been done to her lower extremities. Progress of Wound: Today the right medial lower leg is healed. - Physical Exam Vital Signs Temp Pulse Resp BP 97.1 F L 95 18 132/72 H 04/15/18 09:16 04/15/18 09:16 04/15/18 09:16 04/15/18 09:16 General: Oriented x3, Cooperative, Well developed HEENT: Atraumatic, PERRLA Oral: Moist Mucosa Neck: Supple, No JVD Lungs: Clear to auscultation, Normal air movement Cardiovascular: Regular rate, Regular Rhythm Abdomen: Bowel Sounds Present, Soft, Non Tender, No Hepato-splenomegaly Extremities: No clubbing, No edema Wound Measurements and Assessment WC - Nurse 1 - General Ulcer Measurement Start: 04/01/18 09:31 Freq: Status: Active Protocol: Activity Type Activity Date Activity User E-Sign Co-Sign Detail Recorded Client Recorded Date Recorded By Document 04/15/18 09:16 CS [id number] 04/15/18 09:18 CS 04/15/18 09:16 Wound Center Nurse 1 [Ulcer Assessment] #1 right medial lower leg -Combined with other wound No -Current Size (cm) - Length 0.1 -Current Size (cm) - Width 0.1 -Current Size (cm) - Depth 0.1 -Total Square Cm 0.01 -Date of Last Picture (Recall this 04/15/18 field) -Photo Taken Yes -Epithelialization Large 67-100% [Edema Assessment] -Lower Limb Edema Present NA WC - Nurse 2 - General Ulcer CM Notes Start: 04/01/18 09:31 Freq: Status: Active Protocol: Activity Type Activity Date Activity User E-Sign Co-Sign Detail Recorded Client Recorded Date Recorded By Document 04/15/18 09:28 MW [id number] 04/15/18 09:29 MW 04/15/18 09:28 Wound Center Nurse 2 [Procedure/Treatment] #1 right medial lower leg -Time 09:28 -Correct Patient Yes -Correct Side, Site, Position Yes -Correct Procedure Yes -Procedure Performed No -Post Debridement Size (cm) - Length 0 -Post Debridement Size (cm) - Width 0 -Post Debridement Size (cm) - Depth 0 -Total Square Cm 0 -Wound/Ulcer Outcome Healed- Epithelialized -Ulcer Cleansing Not Cleansed -Foul Odor after Cleansing No -Bleeding Controlled with NA -Offloading No -Treatment Response Procedure Tolerated Well [See Physician Procedure note for Specifics] Pain Scale: 0-10 Numeric [Pain] -Is Patient Pain Free? Yes Musculoskeletal: No Tenderness to Palpation of Joints or Extremities Lymphatic: No Cervical, Supraclavicular, or Inguinal Adenopathy Neurological: Cranial nerves II-XII grossly intact, Neuro grossly intact Psych/Mental Status: Normal Affect, Appropriate, Alert and oriented to time, place, person, mood and affect Debridement Note Post-Debridement Measurements/Treatment WC - Nurse 2 - General Ulcer CM Notes Start: 04/01/18 09:31 Freq: Status: Active Protocol: Activity Type Activity Date Activity User E-Sign Co-Sign Detail Recorded Client Recorded Date Recorded By Document 04/01/18 10:11 MW [id number] 04/01/18 10:16 MW Document 04/08/18 09:44 MW [id number] 04/08/18 09:48 MW Document 04/15/18 09:28 MW [id number] 04/15/18 09:29 MW 04/01/18 04/08/18 04/15/18 10:11 09:44 09:28 Wound Center Nurse 2 #1 right medial lower leg -Time 10:12 09:46 09:28 -Correct Patient Yes Yes Yes -Correct Side, Site, Position Yes Yes Yes -Correct Procedure Yes Yes Yes -Procedure Performed No Yes No -Type of Procedure Debridement -Clinical Debridement Subcutaneous -Post Debridement Size (cm) - Length 1.5 0.4 0 -Post Debridement Size (cm) - Width 1.3 0.4 0 -Post Debridement Size (cm) - Depth 0.1 0.1 0 -Total Square Cm 1.95 0.16 0 -Wound/Ulcer Outcome Not Healed Not Healed Healed- Epithelialized -Ulcer Cleansing Rinsed/ Rinsed/ Not Cleansed Irrigated with Irrigated with Saline Saline -Foul Odor after Cleansing No No No -Bioengineered Tissue No No -Bleeding Controlled with NA Pressure NA -Offloading No No No -Treatment Response Procedure Procedure Procedure Tolerated Well Tolerated Well Tolerated Well Pain Scale: 0-10 Numeric Is Patient Pain Free? Yes Yes Yes Pain Scale: Adult NonVerbal Is Patient Pain Free? Yes No debridement was completed today Assessment/Plan Active Problems CSD (cat scratch disease) (Acute) Bilateral lower extremity edema (Chronic) History of DVT (deep vein thrombosis) (Chronic) History of pulmonary embolism (Chronic) Type II diabetes mellitus (Chronic) Venous insufficiency (Chronic) Assessment: Bilateral lower leg edema. Cellulitis of the right lower leg resolved. Cat scratch disease right lower leg resolved. Peripheral vascular. Possibly PAD Plan: Discharge from the wound center follow-up as needed
--- OUTSIDE RECORDS SUMMARY | 2018-05-17 22:15 | XMS RPT_ITS ---
:1945 Author Organization OHIP Support Name Relationship Address Phone MAGUE AJ Unavailable Unavailable + [place] [address] R Unavailable Unavailable Unavailable TRAYNHAM, CLAUDE Unavailable [address] + [place] [address] JEAN MARIE, LES Unavailable Unavailable + [place] [address] R Unavailable Unavailable Unavailable TRAYNHAM, CLAUDE Unavailable [address] + [place] [address] JEAN MARIE LES Unavailable Unavailable + [place] [address] R Unavailable Unavailable Unavailable TRAYNHAM, CLAUDE Unavailable [address] + [place] [address] JEAN MARIE, LES Unavailable Unavailable + [place] [address] R Unavailable Unavailable Unavailable TRAYNHAM, CLAUDE Unavailable [address] + [place] [address] JEAN MARIE, LES Unavailable Unavailable + [place] [address] R Unavailable Unavailable Unavailable TRAYNHAM, CLAUDE Unavailable [address] + [place] [address] JEAN MARIE, LES Unavailable Unavailable + [place] [address] R Unavailable Unavailable Unavailable TRAYNHAM, CLAUDE Unavailable [address] + [place] [address] JEAN MARIE, LES Unavailable Unavailable + [place] [address] R Unavailable Unavailable Unavailable TRAYNHAM, CLAUDE Unavailable [address] + [place] [address] JEAN MARIE, LES Unavailable Unavailable + [place] [address] R Unavailable Unavailable Unavailable CLAUDE CAMPOS Unavailable [address] + [place] [address] Care Team Providers Name Role Phone MASCI, ISIDRO Jenkins Referring Unavailable MASCI, ISIDRO Gregory Referring Unavailable MASCI, ISIDRO Jenkins Attending Unavailable MASCI, ISIDRO Jenkins Referring Unavailable MASCI, ISIDRO Gregory Referring Unavailable MASCI, ISIDRO A Referring Unavailable MASCI, ISIDRO A Referring Unavailable MASCI, ISIDRO Jenkins Attending Unavailable MASCI, ISIDRO Gregory Referring Unavailable MASCI, ISIDRO A Referring Unavailable MASCI, ISIDRO A Referring Unavailable MASCI, ISIDRO A Referring Unavailable MASCI, ISIDRO A Referring Unavailable MASCI, ISIDRO A Referring Unavailable MASCI, ISIDRO A Referring Unavailable MASCI, ISIDRO A Referring Unavailable MASCI, ISIDRO Jenkins Attending Unavailable MASCI, ISIDRO A Referring Unavailable MASCI, ISIDRO A Referring Unavailable MASCI, ISIDRO Jenkins Referring Unavailable MASCI, ISIDRO Jenkins Attending Unavailable MASCI, ISIDRO Jenkins Referring Unavailable MASCI, ISIDRO Gregory Referring Unavailable MASCI, ISIDRO Jenkins Referring Unavailable KAREN HEART Attending Unavailable MASCI, ISIDRO A Referring Unavailable MASCI, ISIDRO A Referring Unavailable MASCI, ISIDRO A Referring Unavailable NGUYEN LÓPEZ (FUNERAL LOCATION MANAGER) Attending Unavailable MASCI, ISIDRO A Referring Unavailable MASCI, ISIDRO A Referring Unavailable MASCI, ISIDRO A Referring Unavailable MASCI, ISIDRO Gregory Referring Unavailable IZZY, LILIYA Attending Unavailable MASCI, ISIDRO A Referring Unavailable MASCI, ISIDRO A Referring Unavailable MASCI, ISIDRO Gregory Referring Unavailable MASCI, ISIDRO Gregory Referring Unavailable MASCI, ISIDRO Jenkins Referring Unavailable MASCI, ISIDRO Jenkins Referring Unavailable IZZY, LILIYA Referring Unavailable IZZY, LILIYA Referring Unavailable IZZY, LILIYA Referring Unavailable MASCI, ISIDRO A Referring Unavailable MASCI, ISIDRO Jenkins Attending Unavailable MASCI, ISIDRO Gregory Referring Unavailable KRPACATHY GRUBER Attending Unavailable MASCI, ISIDRO A Referring Unavailable MASCI, ISIDRO A Referring Unavailable MASCI, ISIDRO A Referring Unavailable MASCI, ISIDRO Jenkins Attending Unavailable MASCI, ISIDRO A Referring Unavailable MASCI, ISIDRO A Referring Unavailable MASCI, ISIDRO Jenkins Referring Unavailable ANIBALLEILA Attending Unavailable MASCI, ISIDRO Jenkins Referring Unavailable DEASYMANUEL Attending Unavailable GIOVANNAJUSTEN Referring Unavailable MASCI, ISIDRO A Referring Unavailable MASCI, ISIDRO A Referring Unavailable MASCI, ISIDRO Jenkins Attending Unavailable MASCI, ISIDRO A Referring Unavailable MASCI, ISIDRO A Referring Unavailable MASCI, ISIDRO Gregory Referring Unavailable MASCI, ISIDRO A Referring Unavailable LILIYA MAGANA Attending Unavailable MASCI, ISIDRO A Referring Unavailable MASCI, ISIDRO A Referring Unavailable MASCI, ISIDRO A Referring Unavailable MASCI, ISIDRO A Referring Unavailable MASCI, ISIDRO A Attending Unavailable MASCI, ISIDRO A Referring Unavailable MASCI, ISIDRO A Referring Unavailable MASCI, ISIDRO A Referring Unavailable MASCI, ISIDRO A Referring Unavailable MASCI, ISIDRO A Referring Unavailable MASCI, ISIDRO A Referring Unavailable MASCI, ISIDRO A Referring Unavailable NGUYEN LÓPEZ (FUNERAL LOCATION MANAGER) Attending Unavailable MASCI, ISIDRO A Referring Unavailable MASCI, ISIDRO A Referring Unavailable MASCI, ISIDRO A Referring Unavailable CarranzaCassandra WEDGER MACHINE-C Attending Unavailable Daigle, Chente Primary Care Unavailable Carranza, Cassandra WEDGER MACHINE-C Attending Unavailable Daigle, Chente Primary Care Unavailable Justen Mantilla Attending Unavailable Justen Mantilla Referring Unavailable Daigle, Chente Primary Care Unavailable Daigle, Chenet Primary Care Unavailable Jopperi, Chente Admitting Unavailable Jopperi, Chente Attending Unavailable Jopperi, Chente Admitting Unavailable Jopperi, Chente Attending Unavailable Daigle, Chente Primary Care Unavailable Jopperi, Chente Consulting Unavailable Jopperi, Chente Admitting Unavailable Jopperi, Chente Attending Unavailable Daigle, Cehnte Primary Care Unavailable Jopperi, Chente Consulting Unavailable Jopperi, Chente Admitting Unavailable Jopperi, Chente Attending Unavailable Daigle, Chente Primary Care Unavailable Jopperi, Chente Consulting Unavailable Jopperi, Chente Admitting Unavailable Jopperi, Chente Attending Unavailable Daigle, Chente Primary Care Unavailable Jopperi, Chente Consulting Unavailable PROBLEMS PROBLEMS DATE TYPE CONDITION / CODE ATTENDING STATUS SOURCE 12/06/2017 Active Parastomal hernia CATHY CABRERA Active [place] without obstruction Clinic Main or gangrene / [place] K43.5(ICD-10) Repository 11/23/2017 Active Malignant melanoma of NA Active [facility] skin, unspecified / Clinic Main C43.9(ICD-10) [facility] Repository 08/03/2017 Unknown H20.00 - Unspecified Justen Mantilla Active [place] 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 / Hospital H20.00(ICD-10) Repository 06/04/2015 Active 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 [place] peritoneum / Repository C78.6(ICD-10) 06/04/2015 Active Malignant neoplasm of NA Active [facility] left ovary / Clinic Main C56.2(ICD-10) [place] Repository 07/28/2017 Active Pelvic and perineal NA Active [facility] pain / R10.2(ICD-10) [facility] Main [place] Repository 12/24/2016 Active Malignant neoplasm of NA Active [place] vagina / C52(ICD-10) [facility] Main [place] Repository 06/07/2017 Active Unknown / ISIDRO ESTEVEZ Active [facility] UNK(Unknown) [facility] Main [place] Repository PROCEDURES PROCEDURES No Procedure Records FoundRESULTS RESULTS OBSOLETE Observed: 05/06/2018 Status: COMPLETED Source: [place] 12:00 AM [facility] REPOSITORY Refill (HEMAWS) KANU AJ ([id number]) 1945 F Date Time Provider Department 05/06/18 ISIDRO ESTEVEZ During your visit today, we recorded the following information about you: Mayda Natacha Norris 05/06/2018 8:49 AM Signed Patient has been identified by name and date of : Yes Last office visit in this department: Visit date not found RX INSTRUCTIONS: Print and leave at the front end mechanic. Call patient when complete. Patient phones requesting refills as follows: Pending Prescriptions Disp Refills OXYCODONE 5 MG TABLET 180 tablet 0 Sig: Take 1-2 tablets by mouth every 4 hours as needed for up to 7 days. ALEXA Class: C-II [place]: No Please review and advise. 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 Earliest Fill Date: 05/06/18Disp: 180 tabletRfl: 0 Prescriptions as of 05/06/2018 Sig: OXYCODONE 5 MG TABLET Take 1-2 tablets by mouth morena* LINCOMYCIN ORAL Take by mouth. for infection * ONDANSETRON HCL 8 MG TABLET Take 1 tablet by mouth every * PREDNISONE 50 MG TABLET Take 1 tablet 13 hours, 7 valerie* Patient not taking: Reported on 04/22/2018 OXYCODONE 15 MG TABLET Take 15 mg by mouth every 12 * NIVOLUMAB 240 MG/24 ML INTRAV* Inject 240 mg intravenously e* PROMETHAZINE 25 MG TABLET Take 1 tablet by mouth every * DIPHENHYDRAMINE 25 MG TABLET Take 25 mg by mouth once kaz* DOXYCYCLINE MONOHYDRATE 100 M* Take 1 tablet by mouth twice * Patient not taking: Reported on 03/25/2018 CHOLECALCIFEROL (VITAMIN D3) * Take 2,000 Units by mouth onc* APIXABAN 5 MG TABLET 1 tablet twice daily. 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 Dehydration [E86.0] INVALID FOR* CKD (chronic kidney disease) stage 3, GFR 30-59*INVALID FOR* Lymphedema [I89.0] INVALID FOR* Cellulitis of left lower extremity [L03.116] INVALID FOR* Prescriptions ordered this encounter Disp Refills Start End OXYCODONE 5 MG TABLET 180 * 0 05/06/2018 05/13/2018 Class: Print RX Route: ORAL Sig: Take 1-2 tablets by mouth every 4 hours as needed for up to 7 days. Earliest Fill Date: 05/06/18 Medications Discontinued During This Encounter oxyCODONE IR (ROXICODONE) 5 mg immed* 180 * 0 04/11/2018 05/06/2018 Class: Print RX Route: ORAL Sig: Take 1-2 tablets by mouth every 4 hours as needed for up to 7 days. Earliest Fill Date: 04/11/18 Disc: Reason for discontinue is not on file. Encounter Status:Closed by ISIDRO ESTEVEZ DO on 05/06/18 EMMAN Observed: 04/25/2018 Status: COMPLETED Source: [place] 12:00 AM [facility] REPOSITORY Telephone ([employer]) KANU AJ ([id number]) 1945 F Date Time Provider Department 04/25/18 ZENAIDAISIDRO During your visit today, we recorded the following information about you: Isidro Gregory DO Zenaida 04/25/2018 8:03 AM Signed Can let her know CTs came out showing good results. A few mildly enlarged lymph nodes in the pelvis that have been stable over the last few scans. We will plan to continue current treatment. DO Shelia Bentley LPN 04/25/2018 8:31 AM Signed Patient notified and verbalized understanding. Shelia Sanchez LPN Trinidad Claudia 04/25/2018 8:41 AM Signed Patient was asking about coming in earlier. Nurse's 9:30 came early. Nurse returned call and left message with patient that she may come in at 0930 (fyi in case patient calls back). Allergies As of Date: 04/25/2018 Noted Allergy Reaction ASA (ASPIRIN) 05/09/2015 5 - Intolerance Comments: nose bleeds CLINDAMYCIN 05/09/2015 14 - Other: See Comments Comments: jerking, talking funny DEMEROL (MEPERIDINE (PF)) 05/09/2015 8 - GI Upset IODINE 11/23/2016 9 - Itching MORPHINE 05/09/2015 8 - GI Upset PENICILLIN 03/25/2018 8 - GI Upset Comments: Generalized pain, nausea/ vomiting VALIUM (DIAZEPAM) 05/09/2015 8 - GI Upset Date Reviewed: 04/22/2018 Reviewed by: Nguyen López - Fully Assessed Reason for Visit: Results [95] Prescriptions as of 04/25/2018 Sig: LINCOMYCIN ORAL Take by mouth. for infection * ONDANSETRON HCL 8 MG TABLET Take 1 tablet by mouth every * OXYCODONE 5 MG TABLET Take 1-2 tablets by mouth morena* PREDNISONE 50 MG TABLET Take 1 tablet 13 hours, 7 valerie* Patient not taking: Reported on 04/22/2018 OXYCODONE 15 MG TABLET Take 15 mg by mouth every 12 * NIVOLUMAB 240 MG/24 ML INTRAV* Inject 240 mg intravenously e* PROMETHAZINE 25 MG TABLET Take 1 tablet by mouth every * DIPHENHYDRAMINE 25 MG TABLET Take 25 mg by mouth once kaz* DOXYCYCLINE MONOHYDRATE 100 M* Take 1 tablet by mouth twice * Patient not taking: Reported on 03/25/2018 CHOLECALCIFEROL (VITAMIN D3) * Take 2,000 Units by mouth onc* APIXABAN 5 MG TABLET 1 tablet twice daily. 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 Dehydration [E86.0] INVALID FOR* CKD (chronic kidney disease) stage 3, GFR 30-59*INVALID FOR* Lymphedema [I89.0] INVALID FOR* Cellulitis of left lower extremity [L03.116] INVALID FOR* Encounter Status:Closed by ISIDRO ESTEVEZ DO on 04/25/18 PROGRESS Observed: 04/22/2018 Status: COMPLETED Source: [place] 11:02 AM [facility] REPOSITORY HNO ID: [id number] Author: Nguyen López Service: (none) Author Type: Nurse Practitioner Type: Progress Notes Filed: 04/25/2018 8:01 AM Note Text: Chief Complaint Patient presents with: Established Patient HPI: Kanu Aj is a 72 year old female who presents here today for evaluation for treatment on Wednesday. Per Dr. Estevez's previous note: H/o DM2, asthma, VTE, and possible mild CKD as well has hysterectomy ~31 yrs ago who presented to [facility] ED 07/2013?with c/o dyspnea. CT chest significant for?large b/l PE. One was a saddle embolus draped across the bifurcation of the main pulmonary artery and extending into both the right and left pulmonary artery segments per the CT report. Patient was transferred to [facility]. Not clear if she underwent thrombolysis. ? She recalls being discharged on Xarelto and was maintained on that drug until changed to Eliquis per her PCP. She was on that drug when she underwent work up for abdominal pain 03/2015. Underwent CT A/P 04/16/2015 that showed a large complex mass in the pelvis interpreted as arising from the uterus or an ovary and measuring 14.3 x 13.3 x 12.7 cm. It appeared to be well circumscribed not invading other structures. No evidence metastases elsewhere in abdomen. ? Patient was admitted to [facility] 04/19/2015 for acute left LE small DVT?and possible cellulitis of the same leg. She was treated with vancomycin and anticoagulated with Lovenox and transferred to [facility] under the care of a gynecologic oncology surgeon, Dr. Sony Monteiro. ? Underwent surgery 05/03/2015. The final pathology demonstrated that within the RIGHT ovary there was a granulosa cell tumor. The greatest dimension of the ovary was 18 cm. The left fallopian tube was not involved. The omentum was not involved. left ovary and right fallopian tubes were not involved. Tumor was adherent to the left pelvic sidewall. No regional lymph node metastasis was observed. Lymph nodes were removed from the left pelvic, left periaortic areas. Focal angiolymphatic invasion was identified. 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 ? She was discharged to [facility]. Since the time of surgery, she had been having abdominal pain that is sharp and low in abdomen. It crescendos and is partially relieved with a BM. Returns shortly thereafter. Stools were loose and she had been having intermittent nausea with poor appetite. Was transferred to [facility] 05/09/2015 however for low Hgb of 6.1 g/dL. Received transfusion and admitted to [facility]. ? She received a blood transfusion. She was discharged back to the nursing facility and subsequent discharge home. She had been doing home physical therapy. She was making improvements. Initially seen here in plan was for adjuvant chemotherapy once the acute issues were resolved. ? She was admitted to [facility] with hypotension and acute kidney injury on June 17. Serum creatinine was 2.75 mg/dL. She was started on hydration and admitted to the intensive care unit after initiating broad-spectrum antibiotics. Blood cultures remained negative. Urine culture showed 10-50,000 colony-forming units of gram-positive cocci. Patient was transitioned to Levaquin and metronidazole. Creatinine normalized. She was discharged and is now being followed at the wound clinic. ? She underwent excisional debridement of the nonhealing ulcer in the anterior abdominal wall with complex secondary wound closure on 07/18/2015. It was explained to her that 3 layers of sutures are in place. The superficial layer is non-dissolvable whereas the underlying 2 layers are dissolvable. There is a plan for the non-dissolvable sutures to be removed on the through . ? Previous therapy: 1) Adjuvant carbo/paclitaxel x6 cycles completed 12/2015. ? She underwent pelvic exam under anesthesia on 12/04/2016. During the procedure she was observed to have a large approximately 7- 8 cm mass in the rectovaginal septum that infiltrated fairly downloaded to the hymenal ring. There was also infiltration along the right vaginal sidewall. Several core biopsies were obtained of the rectovaginal mass in the right vaginal sidewall. ? Areas revealed a poorly differentiated high-grade malignancy suggestive of malignant melanoma. Immunostains were positive for HMB-45, SOX-10 and [place]-1. CD3, CD20, CD45, CD138, inhibin, [place] 8 and S100 were negative. No BRAF mutation. ? Patient was admitted to [facility] for fever and malaise. She was found to have Escherichia coli sepsis. She was treated with broad-spectrum antibiotics. Urine appeared to be the source. She also received a 2 unit red blood cell transfusion. She underwent colonoscopy where in she was found to have extensive involvement of the rectum and was thereafter transferred to [facility]. On initial exam was determined that the tumor was significantly larger than it was on initial exam/biopsy. Therefore she underwent a palliative loop colostomy on 01/05. The patient had an unremarkable postoperative course and was discharged on Eliquis 5 mg twice a day and completed ciprofloxacin 14 days from her negative culture. ? 2) Palliative radiation on 01/26/2017. ? Current therapy: 1) Nivolumab. ? Continues under care of ophthalmology. Continues eye drops BID. Has required intraocular steroid injection since December. Visual acuity improved. She was seen by general surgery at [facility]. Hernia repair was not advised due to the complicated nature of her case. ? ? Im done at the wound center. My legs are still swollen but so much better. Appetite:eh Energy level:fair Denies fevers. Mouth:denies sores Resp:denies cough or sob, morgan h/o seasonal allergies Cardiac:denies chest pain/palpitations GI:+ abd pain it's my hernia, occ. nausea it's my hernia denies vomiting, ostomy functioning well :denies dysuria/hematuria Extrem:+pain to BLE Neuro:denies symptoms of neuropathy Skin:denies rashes Heme:denies bleeding The ROS is otherwise negative. Past medical history, appointments, medications, allergies reviewed. No changes. EXAM: BP 135/73 Pulse 95 Temp 36.7 ?C (98 ?F) (Oral) Wt 95.7 kg (211 lb) BMI 39.87 kg/m? APPEARANCE Well appearing, alert, in no acute distress, well-hydrated, well nourished. HEART RRR with normal S1 and S2, no murmurs LUNG clear to auscultation LYMPH NODES No cervical lymphadenopathy, No supraclavicular lymphadenopathy and No axillary lymphadenopathy. ABDOMEN stoma with surrounding hernia, bowel sounds normoactive, soft EXTREMITIES chronic BLE edema NEURO Awake, alert and oriented x 3, Normal gait and No involuntary motions. SKIN Skin color, texture, turgor normal, no suspicious rashes or lesions LABS: Component Latest Ref Rng AND Units 03/25/2018 04/20/2018 WBC, [place] 3.70 - 11.00 k/uL 6.34 3.83 RBC, [place] 3.90 - 5.20 m/uL 4.31 4.15 Hemoglobin, [place] 11.5 - 15.5 g/dL 12.6 12.2 Hematocrit, [place] 36.0 - 46.0 % 40.9 38.4 MCV, [place] 80.0 - 100.0 fL 94.9 92.5 MCH, [place] 26.0 - 34.0 pg 29.2 29.4 MCHC, [place] 30.5 - 36.0 g/dL 30.8 31.8 RDW, [place] 11.5 - 15.0 % 14.7 13.6 Platelet Cnt, [place] 150 - 400 k/uL 167 115 (L) MPV, [place] 9.0 - 12.7 fL 10.5 9.6 Absol Gran Count 1.45 - 7.50 k/uL 4.99 3.49 Component Latest Ref Rng AND Units 03/25/2018 04/20/2018 Protein, Total 6.3 - 8.0 g/dL 6.6 6.7 Albumin 3.9 - 4.9 g/dL 3.7 (L) 4.0 Calcium 8.5 - 10.2 mg/dL 9.5 9.8 Bilirubin, Total 0.2 - 1.3 mg/dL 0.5 0.6 Alkaline Phosphatase 34 - 123 U/L 103 118 AST 13 - 35 U/L 17 18 Glucose 74 - 99 mg/dL 165 (H) 239 (H) BUN 7 - 21 mg/dL 33 (H) 32 (H) Creatinine 0.58 - 0.96 mg/dL 1.37 (H) 1.56 (H) Sodium 136 - 144 mmol/L 139 138 Potassium 3.7 - 5.1 mmol/L 3.9 5.0 Chloride 97 - 105 mmol/L 103 106 (H) CO2 22 - 30 mmol/L 28 20 (L) Anion Gap mmol/L 8 12 ALT 7 - 38 U/L 15 31 eGFR- 46 39 eGFR-All Other Races . 38 33 RADIOLOGY: CT chest/abd/pelvis 04/20/18: Pending ASSESSMENT/PLAN: 1. Vaginal melanoma (HCC) - ICD9: 184.0, ICD10: C52 (primary diagnosis) 2. 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 Chronic deep vein thrombosis (DVT) of distal vein of left lower extremity (HCC) - ICD9: 453.52, ICD10: I82.5Z2 - Tolerating opdivo well. Iritis improving with steroid inj. by ophthalmology. - Continue follow up care with ophthalmology. - Pain controlled. - Continue current medications. - Reviewed labs with pt. - CT's pending. - Proceed as scheduled on Wednesday. - Follow up as scheduled. - Pt. aware to call office with any questions/concerns. The patient indicates understanding of these issues and agrees with the plan. Nguyen López APRN.EMMA CNOVSP Observed: 04/22/2018 Status: COMPLETED Source: [place] 10:30 AM [facility] REPOSITORY Visit (SP) Office ([facility]) KANU AJ ([id number]) 1945 F Date Time Provider Department 04/22/18 10:30 AM NGUYEN LÓPEZ During your visit today, we recorded the following information about you: Temperature Pulse Blood pressure Weight 98 degrees 95/minute 135/73 95.7 kg Shelia Sanchez LPN 04/22/2018 11:02 AM Signed Est patient. Discuss recent labs and CT scan, treatment Wednesday. Shelia López APRN.EMMA 04/25/2018 8:01 AM Signed Chief Complaint Patient presents with: Established Patient HPI: Kanu Aj is a 72 year old female who presents here today for evaluation for treatment on Wednesday. Per Dr. Estevez's previous note: H/o DM2, asthma, VTE, and possible mild CKD as well has hysterectomy ~31 yrs ago who presented to [facility] ED 07/2013?with c/o dyspnea. CT chest significant for?large b/l PE. One was a saddle embolus draped across the bifurcation of the main pulmonary artery and extending into both the right and left pulmonary artery segments per the CT report. Patient was transferred to [facility]. Not clear if she underwent thrombolysis. ? She recalls being discharged on Xarelto and was maintained on that drug until changed to Eliquis per her PCP. She was on that drug when she underwent work up for abdominal pain 03/2015. Underwent CT A/P 04/16/2015 that showed a large complex mass in the pelvis interpreted as arising from the uterus or an ovary and measuring 14.3 x 13.3 x 12.7 cm. It appeared to be well circumscribed not invading other structures. No evidence metastases elsewhere in abdomen. ? Patient was admitted to [facility] 04/19/2015 for acute left LE small DVT?and possible cellulitis of the same leg. She was treated with vancomycin and anticoagulated with Lovenox and transferred to [facility] ([facility] under the care of a gynecologic oncology surgeon, Dr. Sony Monteiro. ? Underwent surgery 05/03/2015. The final pathology demonstrated that within the RIGHT ovary there was a granulosa cell tumor. The greatest dimension of the ovary was 18 cm. The left fallopian tube was not involved. The omentum was not involved. left ovary and right fallopian tubes were not involved. Tumor was adherent to the left pelvic sidewall. No regional lymph node metastasis was observed. Lymph nodes were removed from the left pelvic, left periaortic areas. Focal angiolymphatic invasion was identified. 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 ? She was discharged to [facility]. Since the time of surgery, she had been having abdominal pain that is sharp and low in abdomen. It crescendos and is partially relieved with a BM. Returns shortly thereafter. Stools were loose and she had been having intermittent nausea with poor appetite. Was transferred to [facility] [place] 05/09/2015 however for low Hgb of 6.1 g/dL. Received transfusion and admitted to [facility]. ? She received a blood transfusion. She was discharged back to the nursing facility and subsequent discharge home. She had been doing home physical therapy. She was making improvements. Initially seen here in plan was for adjuvant chemotherapy once the acute issues were resolved. ? She was admitted to [facility] with hypotension and acute kidney injury on June 17. Serum creatinine was 2.75 mg/dL. She was started on hydration and admitted to the intensive care unit after initiating broad-spectrum antibiotics. Blood cultures remained negative. Urine culture showed 10-50,000 colony-forming units of gram-positive cocci. Patient was transitioned to Levaquin and metronidazole. Creatinine normalized. She was discharged and is now being followed at the wound clinic. ? She underwent excisional debridement of the nonhealing ulcer in the anterior abdominal wall with complex secondary wound closure on 07/18/2015. It was explained to her that 3 layers of sutures are in place. The superficial layer is non-dissolvable whereas the underlying 2 layers are dissolvable. There is a plan for the non-dissolvable sutures to be removed on the through . ? Previous therapy: 1) Adjuvant carbo/paclitaxel x6 cycles completed 12/2015. ? She underwent pelvic exam under anesthesia on 12/04/2016. During the procedure she was observed to have a large approximately 7-8 cm mass in the rectovaginal septum that infiltrated fairly downloaded to the hymenal ring. There was also infiltration along the right vaginal sidewall. Several core biopsies were obtained of the rectovaginal mass in the right vaginal sidewall. ? Areas revealed a poorly differentiated high-grade malignancy suggestive of malignant melanoma. Immunostains were positive for HMB-45, SOX-10 and [place]-1. CD3, CD20, CD45, CD138, inhibin, [place] 8 and S100 were negative. No BRAF mutation. ? Patient was admitted to [facility] for fever and malaise. She was found to have Escherichia coli sepsis. She was treated with broad-spectrum antibiotics. Urine appeared to be the source. She also received a 2 unit red blood cell transfusion. She underwent colonoscopy where in she was found to have extensive involvement of the rectum and was thereafter transferred to [facility]. On initial exam was determined that the tumor was significantly larger than it was on initial exam/biopsy. Therefore she underwent a palliative loop colostomy on 01/05. The patient had an unremarkable postoperative course and was discharged on Eliquis 5 mg twice a day and completed ciprofloxacin 14 days from her negative culture. ? 2) Palliative radiation on 01/26/2017. ? Current therapy: 1) Nivolumab. ? Continues under care of ophthalmology. Continues eye drops BID. Has required intraocular steroid injection since December. Visual acuity improved. She was seen by general surgery at [facility]. Hernia repair was not advised due to the complicated nature of her case. ? ? Im done at the wound center. My legs are still swollen but so much better. Appetite:eh Energy level:fair Denies fevers. Mouth:denies sores Resp:denies cough or sob, morgan h/o seasonal allergies Cardiac:denies chest pain/palpitations GI:+ abd pain it's my hernia, occ. nausea it's my hernia denies vomiting, ostomy functioning well :denies dysuria/hematuria Extrem:+pain to BLE Neuro:denies symptoms of neuropathy Skin:denies rashes Heme:denies bleeding The ROS is otherwise negative. Past medical history, appointments, medications, allergies reviewed. No changes. EXAM: BP 135/73 Pulse 95 Temp 36.7 ?C (98 ?F) (Oral) Wt 95.7 kg (211 lb) BMI 39.87 kg/m? APPEARANCE Well appearing, alert, in no acute distress, well- hydrated, well nourished. HEART RRR with normal S1 and S2, no murmurs LUNG clear to auscultation LYMPH NODES No cervical lymphadenopathy, No supraclavicular lymphadenopathy and No axillary lymphadenopathy. ABDOMEN stoma with surrounding hernia, bowel sounds normoactive, soft EXTREMITIES chronic BLE edema NEURO Awake, alert and oriented x 3, Normal gait and No involuntary motions. SKIN Skin color, texture, turgor normal, no suspicious rashes or lesions LABS: Component Latest Ref Rng AND Units 03/25/2018 04/20/2018 WBC, [place] 3.70 - 11.00 k/uL 6.34 3.83 RBC, [place] 3.90 - 5.20 m/uL 4.31 4.15 Hemoglobin, [place] 11.5 - 15.5 g/dL 12.6 12.2 Hematocrit, [place] 36.0 - 46.0 % 40.9 38.4 MCV, [place] 80.0 - 100.0 fL 94.9 92.5 MCH, [place] 26.0 - 34.0 pg 29.2 29.4 MCHC, [place] 30.5 - 36.0 g/dL 30.8 31.8 RDW, [place] 11.5 - 15.0 % 14.7 13.6 Platelet Cnt, [place] 150 - 400 k/uL 167 115 (L) MPV, [place] 9.0 - 12.7 fL 10.5 9.6 Absol Gran Count 1.45 - 7.50 k/uL 4.99 3.49 Component Latest Ref Rng AND Units 03/25/2018 04/20/2018 Protein, Total 6.3 - 8.0 g/dL 6.6 6.7 Albumin 3.9 - 4.9 g/dL 3.7 (L) 4.0 Calcium 8.5 - 10.2 mg/dL 9.5 9.8 Bilirubin, Total 0.2 - 1.3 mg/dL 0.5 0.6 Alkaline Phosphatase 34 - 123 U/L 103 118 AST 13 - 35 U/L 17 18 Glucose 74 - 99 mg/dL 165 (H) 239 (H) BUN 7 - 21 mg/dL 33 (H) 32 (H) Creatinine 0.58 - 0.96 mg/dL 1.37 (H) 1.56 (H) Sodium 136 - 144 mmol/L 139 138 Potassium 3.7 - 5.1 mmol/L 3.9 5.0 Chloride 97 - 105 mmol/L 103 106 (H) CO2 22 - 30 mmol/L 28 20 (L) Anion Gap mmol/L 8 12 ALT 7 - 38 U/L 15 31 eGFR- 46 39 eGFR-All Other Races . 38 33 RADIOLOGY: CT chest/abd/pelvis 04/20/18: Pending ASSESSMENT/PLAN: 1. Vaginal melanoma (HCC) - ICD9: 184.0, ICD10: C52 (primary diagnosis) 2. 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 Chronic deep vein thrombosis (DVT) of distal vein of left lower extremity (HCC) - ICD9: 453.52, ICD10: I82.5Z2 - Tolerating opdivo well. Iritis improving with steroid inj. by ophthalmology. - Continue follow up care with ophthalmology. - Pain controlled. - Continue current medications. - Reviewed labs with pt. - CT's pending. - Proceed as scheduled on Wednesday. - Follow up as scheduled. - Pt. aware to call office with any questions/concerns. The patient indicates understanding of these issues and agrees with the plan. Nguyen López APRN.FUNERAL LOCATION MANAGER Referring Provider: ISIDRO ESTEVEZ [[id number]] Allergies As of Date: 04/22/2018 Noted Allergy Reaction ASA (ASPIRIN) 05/09/2015 5 - Intolerance Comments: nose bleeds CLINDAMYCIN 05/09/2015 14 - Other: See Comments Comments: jerking, talking funny DEMEROL (MEPERIDINE (PF)) 05/09/2015 8 - GI Upset IODINE 11/23/2016 9 - Itching MORPHINE 05/09/2015 8 - GI Upset PENICILLIN 03/25/2018 8 - GI Upset Comments: Generalized pain, nausea/ vomiting VALIUM (DIAZEPAM) 05/09/2015 8 - GI Upset Date Reviewed: 04/22/2018 Reviewed by: Nguyen López - Fully Assessed Reason for Visit: Established Patient [175] Primary Visit Diagnosis:Vaginal melanoma (HCC) [C52] Other Visit Diagnoses: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) [C56.2] 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) [C78.6] Chronic deep vein thrombosis (DVT) of distal vein of left lower extremity (HCC) [I82.5Z2] Follow-up and Disposition History Recorded Prescriptions as of 04/22/2018 Sig: ONDANSETRON HCL 8 MG TABLET Take 1 tablet by mouth every * OXYCODONE 5 MG TABLET Take 1-2 tablets by mouth morena* OXYCODONE 15 MG TABLET Take 15 mg by mouth every 12 * NIVOLUMAB 240 MG/24 ML INTRAV* Inject 240 mg intravenously e* PROMETHAZINE 25 MG TABLET Take 1 tablet by mouth every * DIPHENHYDRAMINE 25 MG TABLET Take 25 mg by mouth once kaz* CHOLECALCIFEROL (VITAMIN D3) * Take 2,000 Units by mouth onc* APIXABAN 5 MG TABLET 1 tablet twice daily. Take 1/* Patient taking differently: Take 2.5 mg by mouth twice da* FUROSEMIDE 40 MG TABLET Take 40 mg by mouth twice jessica* ASCORBIC ACID (VITAMIN C) 1,0* Take 1,000 mg by mouth once d* METFORMIN 500 MG TABLET Take 1/2 tablet by mouth twic* CYANOCOBALAMIN (VIT B-12) 250* Take 1 tablet by mouth once d* CYCLOBENZAPRINE 10 MG TABLET Take 10 mg by mouth daily at * CETIRIZINE 10 MG TABLET Take 10 mg by mouth once kaz* ACETAMINOPHEN 325 MG TABLET Take 325 mg by mouth every 6 * ALBUTEROL SULFATE HFA 90 MCG/* Inhale 2 Puffs as instructed * LINCOMYCIN ORAL Take by mouth. 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 Dehydration [E86.0] INVALID FOR* CKD (chronic kidney disease) stage 3, GFR 30-59*INVALID FOR* Lymphedema [I89.0] INVALID FOR* Cellulitis of left lower extremity [L03.116] INVALID FOR* Visit Notes: >> Shelia Laura OLGUIN WedApr 22, 2018 10:39 AM Status: Signed Est patient. Discuss recent labs and CT scan, treatment Wednesday. Shelia Sanchez LPN Encounter Status:Closed by NGUYEN LÓPEZ CNP on 04/25/18 PROGRESS Observed: 04/20/2018 Status: COMPLETED Source: [place] 12:01 PM [facility] REPOSITORY HNO ID: [id number] Author: Carlyn Croft Service: (none) Author Type: (none) Type: Progress Notes Filed: 04/20/2018 12:02 PM Note Text: Radiology Service Progress Note PATIENT NAME: Kanu Aj DATE OF SERVICE: April 20, 2018 TIME: 12:01 PM PATIENT IDENTITY VERIFICATION COMPLETED USING TWO (2) METHODS: Patient confirmed name verbally and Date of . PATIENT GENDER DATA: Female. status: : No status: NO. PATIENT RELEVANT IMPLANT DATA REVIEWED: Not Applicable CONTRAST INDUCED NEPHROPATHY RISK FACTORS: Patient age > 60 years CREATININE: Creatinine Date Value Ref Range Status 04/20/2018 1.56 (H) 0.58 - 0.96 mg/dL Final 03/25/2018 1.37 (H) 0.58 - 0.96 mg/dL Final 02/25/2018 1.17 (H) 0.58 - 0.96 mg/dL Final eGFR-All Other Races Date Value Ref Range Status 04/20/2018 33 . Final Comment: eGFR (Estimated GFR) Units of measure: mL/min/1.73 meters squared eGFR is derived from the reexpressed MDRD Study equation using the following parameters: serum creatinine, age, gender and race. The creatinine assay has been calibrated to be traceable to IDMS. An eGFR <60 mL/min/1.73m2 for >3 months is consistent with chronic kidney disease. Refer to KDOQI guidelines for clinical interpretation. In patients with unstable renal function, e.g. those with acute kidney injury, the eGFR may not accurately reflect actual GFR. eGFR- Date Value Ref Range Status 04/20/2018 39 Final P.O.C.T. RESULTS: POC done: Yes, See Lab Tab April 20, 2018 RADIOLOGIST NOTIFIED?: No ALLERGIES: Reviewed and unchanged CONTRAST ALLERGY: NO. PERIPHERAL IV ACCESS: Ambulatory: IV type: Existing peripheral IV utilized, Site assessment: Clean,Dry and Intact, Site disposition Discontinued RADIOLOGY DEPARTMENT: CT; Exam(s) Completed: Chest Abdomen Pelvis SIGNED BY: Carlyn Mooney Ct April 20, 2018 12:[address] ABD/PEL W IVCON Observed: 04/20/2018 Status: F Source: [place] 11:38 AM [facility] [place] REPOSITORY * * *Final Report* * * DATE OF EXAM: Apr 20 2018 11:38AM [facility] 0530 - CT ABD/PEL W IVCON / PROCEDURE REASON: Malignant melanoma of skin (HCC) * * * * Physician Interpretation * * * * EXAMINATION: CT CHEST WITH IV CONTRAST and CT ABDOMEN AND PELVIS WITH IV CONTRAST CLINICAL HISTORY: Malignant melanoma of skin (HCC) Hx melanoma,premedicated/pre iv hydration,jessica,colon resection/colostomy, torsten,bso,ct 8.7.18,premedicated,pre iv hydration TECHNIQUE: CT of the chest from the thoracic inlet to the upper abdomen was performed following IV contrast. CT of the abdomen and pelvis was performed using standard technique, scanning from just above the dome of the diaphragm to the symphysis pubis. MQ: [id number]_4 Contrast: IV: 150 ml of Omnipaque 300 Oral: 50 ml of 50ML Omnipaque [address] Radiation dose: Integrated Dose-length product (DLP) for this visit = 1238 mGy*cm. CT Dose Reduction Employed: Automated exposure control(AEC) and iterative recon COMPARISON: 11/23/2017 RESULT: Limitations: None. Chest: Lines, tubes, and devices: None. Lung parenchyma and pleura: No consolidation. Stable scarring left lower lobe. No suspicious pulmonary nodule. No pleural effusion. Central airways are patent. Thoracic inlet, heart, and mediastinum: Stable subcentimeter right thyroid hypodensities. No axillary, hilar or mediastinal lymphadenopathy. Normal cardiac size without pericardial effusion. No central pulmonary emboli. No aortic aneurysm. Bones/Soft Tissues: No acute abnormality. No osseous lesions. Abdomen / Pelvis: Liver: No mass. Biliary: No bile duct dilation. Gallbladder is surgically absent Spleen: No mass. No splenomegaly. Pancreas: Stable 1 cm hypodense lesion projecting posteriorly from the pancreatic tail, series 5 image 30. No solid mass or ductal dilatation. Adrenals: No mass. Kidneys: Stable bilateral calculi and cortical hypodensities. No hydronephrosis. GI tract: No dilation or wall thickening. Colostomy with parastomal herniation of colon and small bowel. Lymph nodes: 1.0 x 1.0 cm right iliac chain lymph node image 90, previously 1.0 x 0.9 cm. 1.2 x 1.0 cm left iliac chain lymph node series 5 image 104, previously 1.1 x 1.1 cm. Subcentimeter external iliac chain lymph nodes are not significantly changed. No new lymphadenopathy. Mesentery/Peritoneum: No ascites or mass. Retroperitoneum: No mass. Vasculature: The celiac axis and SMA are patent. The portal vein and branches, splenic vein, SMV, and hepatic veins are patent. IVC filter with stable thrombus cephalad to the filter at the level of the left renal vein. No aneurysm Pelvis: No mass, ascites or fluid collection. Significant streak artifact from right hip arthroplasty. Bones/soft tissues: Degenerative changes. No osseous lesion. IMPRESSION: No evidence for neoplasm in the chest. Stable small pelvic lymph nodes. Stable thrombus above the IVC filter. Medical Front Desk Coordinator: DYLLAN Transcribe Date/Time: Apr 22 2018 4:04P Dictated by : CHRIS MANNING MD This examination was interpreted and the report reviewed and electronically signed by: CHRIS MANNING MD on Apr 22 2018 4:18PM EST [id number] CT CHEST W IVCON Observed: 04/20/2018 Status: F Source: [place] 11:38 AM [facility] REPOSITORY * * *Final Report* * * DATE OF EXAM: Apr 20 2018 11:38AM [facility] 0539 - CT CHEST W IVCON / PROCEDURE REASON: Malignant melanoma of skin (HCC) * * * * Physician Interpretation * * * * EXAMINATION: CT CHEST WITH IV CONTRAST and CT ABDOMEN AND PELVIS WITH IV CONTRAST CLINICAL HISTORY: Malignant melanoma of skin (HCC) Hx melanoma,premedicated/pre iv hydration,jessica,colon resection/colostomy, torsten,bso,ct 8.7.18,premedicated,pre iv hydration TECHNIQUE: CT of the chest from the thoracic inlet to the upper abdomen was performed following IV contrast. CT of the abdomen and pelvis was performed using standard technique, scanning from just above the dome of the diaphragm to the symphysis pubis. MQ: CTCAPW_4 Contrast: IV: 150 ml of Omnipaque 300 Oral: 50 ml of 50ML Omnipaque [address] Radiation dose: Integrated Dose-length product (DLP) for this visit = 1238 mGy*cm. CT Dose Reduction Employed: Automated exposure control(AEC) and iterative recon COMPARISON: 11/23/2017 RESULT: Limitations: None. Chest: Lines, tubes, and devices: None. Lung parenchyma and pleura: No consolidation. Stable scarring left lower lobe. No suspicious pulmonary nodule. No pleural effusion. Central airways are patent. Thoracic inlet, heart, and mediastinum: Stable subcentimeter right thyroid hypodensities. No axillary, hilar or mediastinal lymphadenopathy. Normal cardiac size without pericardial effusion. No central pulmonary emboli. No aortic aneurysm. Bones/Soft Tissues: No acute abnormality. No osseous lesions. Abdomen / Pelvis: Liver: No mass. Biliary: No bile duct dilation. Gallbladder is surgically absent Spleen: No mass. No splenomegaly. Pancreas: Stable 1 cm hypodense lesion projecting posteriorly from the pancreatic tail, series 5 image 30. No solid mass or ductal dilatation. Adrenals: No mass. Kidneys: Stable bilateral calculi and cortical hypodensities. No hydronephrosis. GI tract: No dilation or wall thickening. Colostomy with parastomal herniation of colon and small bowel. Lymph nodes: 1.0 x 1.0 cm right iliac chain lymph node image 90, previously 1.0 x 0.9 cm. 1.2 x 1.0 cm left iliac chain lymph node series 5 image 104, previously 1.1 x 1.1 cm. Subcentimeter external iliac chain lymph nodes are not significantly changed. No new lymphadenopathy. Mesentery/Peritoneum: No ascites or mass. Retroperitoneum: No mass. Vasculature: The celiac axis and SMA are patent. The portal vein and branches, splenic vein, SMV, and hepatic veins are patent. IVC filter with stable thrombus cephalad to the filter at the level of the left renal vein. No aneurysm Pelvis: No mass, ascites or fluid collection. Significant streak artifact from right hip arthroplasty. Bones/soft tissues: Degenerative changes. No osseous lesion. IMPRESSION: No evidence for neoplasm in the chest. Stable small pelvic lymph nodes. Stable thrombus above the IVC filter. Medical Front Desk Coordinator: [facility] Transcribe Date/Time: Apr 22 2018 4:04P Dictated by : CHRIS MANNING MD This examination was interpreted and the report reviewed and electronically signed by: CHRIS MANNING MD on Apr 22 2018 4:18PM EST [id number] [place] ABS GR + CBC Collected: 04/20/2018 Status: F Source: [place] 9:35 AM [facility] REPOSITORY TYPE CODE TESTS RESULT OUT OF REFERENCE UNITS RANGE LAB WWBC 3.70-11.00 k/uL [place] WBC 3.83 LAB WRBC 3.90-5.20 m/uL [place] RBC 4.15 LAB WHGB 11.5-15.5 g/dL [place] Hemoglobin 12.2 LAB WHCT 36.0-46.0 % [place] Hematocrit 38.4 LAB WMCV 80.0-100.0 fL [place] MCV 92.5 LAB WMCH 26.0-34.0 pg [place] MCH 29.4 LAB WMCHC 30.5-36.0 g/dL [place] MCHC 31.8 LAB WRDW 11.5-15.0 % [place] RDW 13.6 LAB WPLT 150-400 k/uL Low [place] Platelet Cnt 115 LAB WMPV 9.0-12.7 fL [place] MPV 9.6 Result Comment: Test performed at: [facility] [place], [address] [place] [address]. LAB ABGRAN 1.45-7.50 k/uL Absol Gran 3.49 Count COMP METABOLIC PANEL Collected: 04/20/2018 Status: F Source: [place] 9:35 AM [facility] [place] REPOSITORY TYPE CODE TESTS RESULT OUT OF REFERENCE UNITS RANGE LAB TP 6.3-8.0 g/dL Protein, Total 6.7 LAB ALB 3.9-4.9 g/dL Albumin 4.0 LAB CA 8.5-10.2 mg/dL Calcium, Total 9.8 LAB TBIL 0.2-1.3 mg/dL Bilirubin, Total 0.6 LAB ALKP 34-123 U/L Alkaline Phosphatase 118 LAB AST 13-35 U/L AST 18 LAB GLU 74-99 mg/dL Glucose High 239 LAB BUN 7-21 mg/dL BUN High 32 LAB CRET 0.58-0.96 mg/dL Creatinine High 1.56 LAB NA 136-144 mmol/L Sodium 138 LAB K 3.7-5.1 mmol/L Potassium 5.0 LAB CL 97-105 mmol/L Chloride High 106 LAB CO2 22-30 mmol/L CO2 Low 20 LAB AGAP mmol/L Anion Gap 12 LAB ALT 7-38 U/L ALT 31 LAB GFRAA eGFR- 39 Amer. LAB GFRNAA . eGFR-All Other Races 33 Result Comment: eGFR (Estimated GFR) Units of measure: mL/min/1.73 meters squared eGFR is derived from the reexpressed MDRD Study equation using the following parameters: serum creatinine, age, gender and race. The creatinine assay has been calibrated to be traceable to IDMS. An eGFR <60 mL/min/1.73m2 for >3 months is consistent with chronic kidney disease. Refer to KDOQI guidelines for clinical interpretation. In patients with unstable renal function, e.g. those with acute kidney injury, the eGFR may not accurately reflect actual GFR. TSH Collected: 04/20/2018 Status: F Source: [place] 9:35 AM [facility] REPOSITORY TYPE CODE TESTS RESULT OUT OF RANGE REFERENCE UNITS LAB TSH 0.400-5.500 uU/mL TSH 0.999 Performed By: #### TSH #### [facility] [address] [place], [place] [address] CNPN Observed: 04/15/2018 Status: COMPLETED Source: [place] 12:00 AM [facility] REPOSITORY Telephone (HEMAWS) KANU AJ ([id number]) 1945 F Date Time Provider Department 04/15/18 ISIDRO ESTEVEZ During your visit today, we recorded the following information about you: Romy Alvarez Psr 04/15/2018 10:58 AM Signed [place]. Is calling in regards to patient needing Ostomy supplies please return their call to [phone] Kylah Parker LPN, SHARIF 04/15/2018 4:12 PM Addendum 3 attempts to contact , held for extended periods of time each time, left message on their voicemail to return call before lunch today. They never returned call. Kylah Parker LPN Allergies As of Date: 04/15/2018 Noted Allergy Reaction ASA (ASPIRIN) 05/09/2015 5 - Intolerance Comments: nose bleeds CLINDAMYCIN 05/09/2015 14 - Other: See Comments Comments: jerking, talking funny DEMEROL (MEPERIDINE (PF)) 05/09/2015 8 - GI Upset IODINE 11/23/2016 9 - Itching MORPHINE 05/09/2015 8 - GI Upset PENICILLIN 03/25/2018 8 - GI Upset Comments: Generalized pain, nausea/ vomiting VALIUM (DIAZEPAM) 05/09/2015 8 - GI Upset Date Reviewed: 04/07/2018 Reviewed by: Carlyn Mooney Ct - Fully Assessed Reason for Visit: supplies [Other] Prescriptions as of 04/15/2018 Sig: ACETAMINOPHEN 325 MG TABLET Take 325 mg by mouth every 6 * ALBUTEROL SULFATE HFA 90 MCG/* Inhale 2 Puffs as instructed * APIXABAN 5 MG TABLET 1 tablet twice daily. Take 1/* Patient taking differently: Take 2.5 mg by mouth twice da* ASCORBIC ACID (VITAMIN C) 1,0* Take 1,000 mg by mouth once d* CETIRIZINE 10 MG TABLET Take 10 mg by mouth once kaz* CHOLECALCIFEROL (VITAMIN D3) * Take 2,000 Units by mouth onc* CYANOCOBALAMIN (VIT B-12) 250* Take 1 tablet by mouth once d* CYCLOBENZAPRINE 10 MG TABLET Take 10 mg by mouth daily at * DIPHENHYDRAMINE 25 MG TABLET Take 25 mg by mouth once kaz* DIPHENHYDRAMINE 50 MG CAPSULE Take 1 capsule by mouth as di* DOXYCYCLINE MONOHYDRATE 100 M* Take 1 tablet by mouth twice * Patient not taking: Reported on 03/25/2018 FUROSEMIDE 40 MG TABLET Take 40 mg by mouth twice jessica* LINCOMYCIN ORAL Take by mouth. 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 Dehydration [E86.0] INVALID FOR* CKD (chronic kidney disease) stage 3, GFR 30-59*INVALID FOR* Lymphedema [I89.0] INVALID FOR* Cellulitis of left lower extremity [L03.116] INVALID FOR* Encounter Status:Closed by KYLAH PARKER on 04/15/18 WOUND CTR HISTORY Observed: 04/01/2018 Status: F Source: [place] AND PHYSICAL 11:03 AM [facility] [address] [place] [address] Wound Ctr History AND Physical 04/01/18 1053 MR#: [id number] Acct: [id number] Name: KANU AJ Rep #: [id number] : 1945 72 From: Cassandra Carranza WEDGER MACHINESolomonC PCP: Chente Daigle MD Status: REG RCR Y Location: (1) CSD (cat scratch disease) Status: Acute Current Visit: Yes Code(s): A28.1 - Cat- scratch disease (2) History of DVT (deep vein thrombosis) Status: Chronic Current Visit: No Code(s): Z86.718 - Personal history of other venous thrombosis and embolism (3) History of pulmonary embolism Status: Chronic Current Visit: No Code(s): Z86.711 - Personal history of pulmonary embolism (4) Type II diabetes mellitus Status: Chronic Current Visit: No Code(s): E11.9 - Type 2 diabetes mellitus without complications (5) Venous insufficiency Status: Chronic Current Visit: No (6) Bilateral lower extremity edema Status: Chronic Current Visit: Yes Code(s): R60.0 - Localized edema History of Present Illness Chief Complaint: Surgical wound dehiscence History of Wound: 72-year-old white female that came to us with a cat bite and scratch to the right lower extremity. Seen by her primary care doctor and placed on Augmentin. Is already been on the antibiotic for a full week and still has severe cellulitis and very warm to touch and swelling in her right lower leg. We will reculture of the leg today wounds appear to be mostly closed she is sleeping through her skin from the edema. Patient denies fever chills nausea vomiting history of DVTs and pulmonary embolisms is on Eliquis at this time. We will repeat venous studies and arterial flow which appears to not have ever been done to her lower extremities. Past Medical History Past Medical History: Chronic Problems Bilateral lower extremity edema (Chronic) Asthma (Chronic) Reported, severity unknown History of DVT (deep vein thrombosis) (Chronic) History of pulmonary embolism (Chronic) Type II diabetes mellitus (Chronic) Cancer of ovary (Chronic) Anemia (Chronic) Venous insufficiency (Chronic) Poor dentition (Chronic) Past Medical History: Cat scratch disease Surgical History: cholecystectomy, hysterectomy - For uterine fibroids, total hip arthroplasty - Right, total knee arthroplasty - Left, - - Surgery for bilateral carpal tunnel syndrome. Resection of ovarian cancer at [facility] in 2015, debridement of the abdominal wall with wound closure by Dr. Garza in June 2015 Allergies/Adverse Reactions: Allergies clindamycin Allergy (Verified 10/15/17 09:50) Other meperidine HCl [From Demerol] Allergy (Verified 10/15/17 09:50) Other Penicillins Allergy (Verified 10/15/17 09:50) Itching adhesive tape Adverse Reaction (Verified 10/15/17 09:50) Other BLISTERS aspirin Adverse Reaction (Verified 10/15/17 09:50) Other diazepam [From Valium] Adverse Reaction (Verified 10/15/17 09:50) Nausea/Vom/Diarrhea egg Adverse Reaction (Verified 10/15/17 09:50) Diarrhea morphine Adverse Reaction (Verified 10/15/17 09:50) Nausea/Vom/Diarrhea sulfamethoxazole [From Bactrim] Adverse Reaction (Verified 10/15/17 09:50) Nausea/Vom/Diarrhea trimethoprim [From Bactrim] Adverse Reaction (Verified 10/15/17 09:50) Nausea/Vom/Diarrhea Home Medications: Ambulatory Orders Medication Instructions Recorded Acetaminophen [Tylenol] 325 mg PO Q6H PRN PRN 05/29/15 Cyanocobalamin [Vitamin B12] 1,000 mcg PO DAILY@0800 05/29/15 - Family History Maternal No pertinent history, - - no cancer Paternal No pertinent history Smoking Status: Never smoker Review of Systems Constitutional: Denies: Chills, Fever Eyes: Denies: Blurred vision, Drainage, Pain HEENT: Denies: Difficulty Hearing, Difficulty Swallowing, Sore Throat, Visual Changes Cardiovascular: Denies: Chest Pain, Palpitations, Syncope Respiratory: Denies: Cough, Shortness of Breath Gastrointestinal: Denies: Abdominal Pain, Nausea, Vomiting Genitourinary: Denies: Dysuria, Frequency Musculoskeletal: Denies: Joint Pain, Muscle pain Skin: Reports: Wounds - Right lower leg blister and superficial open areas on the top layer skin erythema and warm to touch. Denies: Jaundice, Rash Neurological: Denies: Balance problems, Change in Speech, Difficulty swallowing, Focal weakness Psychiatric: Denies: Anxiety, Depression Endocrine: Denies: Change in Body Habitus Hematologic/ Lymphatic: Denies: Adenopathy - Physical Exam Vital Signs Temp Pulse Resp BP 97.7 F L 88 16 158/74 H 04/01/18 09:32 12 09:32 12 09:32 04/01/18 09:32 General: Oriented x3, Cooperative, Well developed HEENT: Atraumatic, PERRLA Oral: Moist Mucosa Neck: Supple, No JVD Lungs: Clear to auscultation, Normal air movement Cardiovascular: Regular rate, Regular Rhythm Abdomen: Bowel Sounds Present, Soft, Non Tender, No Hepato-splenomegaly Extremities: No clubbing, No edema, Tenderness Skin: Ulcer/ Wound - Right lower leg swelling and superficial open areas on the almeida area and a blister left her almeida on the inner aspect of her left lower leg Wound Measurements and Assessment WC - Nurse 1 - General Ulcer Measurement Start: 04/01/18 09:31 Freq: Status: Active Protocol: Activity Type Activity Date Activity User E-Sign Co-Sign Detail Recorded Client Recorded Date Recorded By Document 04/01/18 09:32 AN [id number] 04/01/18 09:47 AN Wound Center Nurse 1 [Ulcer Assessment] right lower leg -Current Size (cm) - Length 1.5 -Current Size (cm) - Width 1.3 -Current Size (cm) - Depth 0.1 WC - Nurse 2 - General Ulcer CM Notes Start: 04/01/18 09:31 Freq: Status: Active Protocol: Activity Type Activity Date Activity User E-Sign Co-Sign Detail Recorded Client Recorded Date Recorded By Document 04/01/18 10:11 MW [id number] 04/01/18 10:16 MW Wound Center Nurse 2 [Procedure/Treatment] right lower leg -Time 10:12 -Correct Patient Yes -Correct Side, Site, Position Yes Musculoskeletal: No Tenderness to Palpation of Joints or Extremities Lymphatic: No Cervical, Supraclavicular, or Inguinal Adenopathy Neurological: Cranial nerves II-XII grossly intact, Neuro grossly intact Psych/Mental Status: Normal Affect, Appropriate Debridement Note Post-Debridement Measurements/Treatment WC - Nurse 2 - General Ulcer CM Notes Start: 04/01/18 09:31 Freq: Status: Active Protocol: Activity Type Activity Date Activity User E-Sign Co-Sign Detail Recorded Client Recorded Date Recorded By Document 04/01/18 10:11 MW [id number] 04/01/18 10:16 MW Wound Center Nurse 2 right lower leg No debridement was completed today Assessment/Plan Wound aerobic and anaerobic cultures taken also arterial brachial studies ordered to be done Active Problems CSD (cat scratch disease) (Acute) Bilateral lower extremity edema (Chronic) Assessment: Bilateral lower leg edema. Cellulitis of the right lower leg. Cat scratch disease right lower leg. Peripheral vascular. Possibly PAD Plan: Wash right lower leg with Hibiclens. Apply Xeroform dressings to the almeida and to the blister area of the right lower leg cover with gauze and tape. Layer Tubigrip to bilateral lower legs follow-up in 1 week 04/01/18 1103 <Electronically signed by Cassandra MUELLER> Date Cassandra MUELLER CC: Signed Observed: 04/01/2018 Status: F Source: [place] CULTURE, DEEP WOUND 10:10 AM [facility] Gram Stain Gram Stain 1+ Gram positive cocci Wound Culture Clinical correlation necessary, Possible skin contamination. ORGANISM 1: Staphylococcus haemolyticus Amount Growth 2+ ORGANISM 2: Staphylococcus epidermidis Amount Growth 2+ Staphylococcus haemolyticus: REACTION Benzylpenicillin NF >=0.5 R Cefoxitin *NF + Clindamycin $$ >=8 R Inducable Clindamycin Resistan - Erythromycin $ <=0.25 S Gentamicin $ <=0.5 S Levofloxacin $ 4 I Linezolid $$$$ 1 S Oxacillin NF >=4 R Tigecycline $$$$ <=0.12 S Rifampin $$ <=0.5 S Tetracycline NF >=16 R Vancomycin $ 1 S (NF) indicates non-formulary drug at [facility]. Approval by Infectious Disease Specialist required before non-formulary drugs may be ordered and/or dispensed. * CLSI guidelines does not recommend testing of cephalosporins. This interpretation is deduced from Beta-lactam/penicillin results. Staphylococcus epidermidis: REACTION Benzylpenicillin NF >=0.5 R Cefoxitin *NF + Clindamycin $$ >=8 R Inducable Clindamycin Resistan - Erythromycin $ >=8 R Gentamicin $ <=0.5 S Levofloxacin $ <=0.12 S Linezolid $$$$ 1 S Oxacillin NF >=4 R Tigecycline $$$$ 0.5 S Rifampin $$ <=0.5 S Tetracycline NF >=16 R Vancomycin $ 2 S (NF) indicates non-formulary drug at [facility]. Approval by Infectious Disease Specialist required before non-formulary drugs may be ordered and/or dispensed. * CLSI guidelines does not recommend testing of cephalosporins. This interpretation is deduced from Beta-lactam/penicillin results. Cult, Anaerobic No anaerobic bacteria isolated. Performed By: #### [id number] #### [facility] 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 3) metastatic vaginal melanoma ? HPI: The patient is a 72 yo female with a PMH significant for DM2, asthma, VTE, and possible mild CKD as well has hysterectomy ~31 yrs ago who presented to [facility] 07/2013 with c/o dyspnea. CT chest significant for large b/l PE. One was a saddle embolus draped across the bifurcation of the main pulmonary artery and extending into both the right and left pulmonary artery segments per the CT report. Patient was transferred to [facility]. Not clear if she underwent thrombolysis. ? She recalls being discharged on Xarelto and was maintained on that drug until changed to Eliquis per her PCP. She was on that drug when she underwent work up for abdominal pain 03/2015. Underwent CT A/P 04/16/2015 that showed a large complex mass in the pelvis interpreted as arising from the uterus or an ovary and measuring 14.3 x 13.3 x 12.7 cm. It appeared to be well circumscribed not invading other structures. No evidence metastases elsewhere in abdomen. ? Patient was admitted to [facility] 04/19/2015 for acute left LE small DVT and possible cellulitis of the same leg. She was treated with vancomycin and anticoagulated with Lovenox and transferred to [facility] under the care of a gynecologic oncology surgeon, Dr. Sony Monteiro. ? Underwent surgery 05/03/2015. The final pathology demonstrated that within the RIGHT ovary there was a granulosa cell tumor. The greatest dimension of the ovary was 18 cm. The left fallopian tube was not involved. The omentum was not involved. left ovary and right fallopian tubes were not involved. Tumor was adherent to the left pelvic sidewall. No regional lymph node metastasis was observed. Lymph nodes were removed from the left pelvic, left periaortic areas. Focal angiolymphatic invasion was identified. 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 ? She was discharged to [facility]. Since the time of surgery, she had been having abdominal pain that is sharp and low in abdomen. It crescendos and is partially relieved with a BM. Returns shortly thereafter. Stools were loose and she had been having intermittent nausea with poor appetite. Was transferred to [facility] [place] 05/09/2015 however for low Hgb of 6.1 g/dL. Received transfusion and admitted to [facility]. ? She received a blood transfusion. She was discharged back to the nursing facility and subsequent discharge home. She had been doing home physical therapy. She was making improvements. Initially seen here in plan was for adjuvant chemotherapy once the acute issues were resolved. ? She was admitted to [facility] with hypotension and acute kidney injury on June 17. Serum creatinine was 2.75 mg/dL. She was started on hydration and admitted to the intensive care unit after initiating broad-spectrum antibiotics. Blood cultures remained negative. Urine culture showed 10-50,000 colony-forming units of gram-positive cocci. Patient was transitioned to Levaquin and metronidazole. Creatinine normalized. She was discharged and is now being followed at the wound clinic. ? She underwent excisional debridement of the nonhealing ulcer in the anterior abdominal wall with complex secondary wound closure on 07/18/2015. It was explained to her that 3 layers of sutures are in place. The superficial layer is non-dissolvable whereas the underlying 2 layers are dissolvable. There is a plan for the non-dissolvable sutures to be removed on the through . ? Previous therapy: 1) Adjuvant carbo/paclitaxel x6 cycles completed 12/2015. ? She underwent pelvic exam under anesthesia on 12/04/2016. During the procedure she was observed to have a large approximately 7- 8 cm mass in the rectovaginal septum that infiltrated fairly downloaded to the hymenal ring. There was also infiltration along the right vaginal sidewall. Several core biopsies were obtained of the rectovaginal mass in the right vaginal sidewall. ? Areas revealed a poorly differentiated high-grade malignancy suggestive of malignant melanoma. Immunostains were positive for HMB-45, SOX-10 and [place]-1. CD3, CD20, CD45, CD138, inhibin, [place] 8 and S100 were negative. No BRAF mutation. ? Patient was admitted to [facility] for fever and malaise. She was found to have Escherichia coli sepsis. She was treated with broad-spectrum antibiotics. Urine appeared to be the source. She also received a 2 unit red blood cell transfusion. She underwent colonoscopy where in she was found to have extensive involvement of the rectum and was thereafter transferred to [facility]. On initial exam was determined that the tumor was significantly larger than it was on initial exam/biopsy. Therefore she underwent a palliative loop colostomy on 01/05. The patient had an unremarkable postoperative course and was discharged on Eliquis 5 mg twice a day and completed ciprofloxacin 14 days from her negative culture. ? 2) Palliative radiation on 01/26/2017. ? Current therapy: 1) Nivolumab. ? Presents for ongoing oncologic management. ? Interim history: Continues under care of ophthalmology. Continues eye drops BID. Has required intraocular steroid injection since December. Visual acuity improved. Pelvic pain under good control. No gross hematuria. No vaginal bleeding. No other unusual bleeding or unexplained bruising. She was seen by general surgery at [facility]. Hernia repair was not advised due to the complicated nature of her case. Cat tried to jump over her leg and clawed lower right leg. ? PMH, medications and allergies as below personally reviewed by me today. Any changes documented in appropriate section. ? ROS: Constitutional: Denies episodes of fever and night sweats. Neuro: Denies TANNER, vertigo, dizziness. HEENT: No recent change in voice, vision or hearing. Resp: Denies cough, wheeze and hemoptysis. Denies shortness of breath at rest. CVS: Denies exertional chest pain, PND, orthopnea. Chronic lower extremity edema stable. GI: Denies symptoms of stomatitis. Denies dysphagia and odynophagia. Denies reflux and nausea. : See above. Endo: Denies hot flashes. Denies polyuria and polydipsia. Denies heat and cold intolerance. Musculoskeletal: Denies bone, back, joint and muscular pain. Derm: See above. Heme: See above. Psych: Normal mood. ? PHYSICAL EXAM: Well-appearing and in no acute distress. performance status 80% BP 142/62 Pulse 75 Temp (Src) 98.1 (Temporal Artery) Wt 217 lb (98.4kg) EYES: Sclerae are anicteric bilaterally. Mild conjunctival injection. Eyelashes have lightened in color. NECK: Supple. LYMPHATIC: There is no palpable cervical, supraclavicular adenopathy. RESPIRATORY: Inspiratory breath sounds are of normal intensity in all muir. No rales, wheezes or rhonchi. CARDIOVASCULAR: Rhythm is regular. Normal intensity S1/S2. There is no gallop or murmur. ABDOMEN: The abdomen is nondistended. Ostomy appears healthy. There is stable surrounding herniation that is tender, but remains reducible. Extremities: Stable lower extremity swelling worse on the left. SKIN: Less swelling and edema bilaterally. Area right lateral lower leg from cat scratch looks like recurrent cellulitis. 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 ? 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 -She is tolerating OPDIVO treatment very well with significant response of the pelvic melanoma. She is having side effects including iritis and retinitis but the symptoms are stable to improving on local steroid therapy. -Reviewed the results of the most recent CT scans from 11/23 with her. Essentially CR in the pelvis. Continued responding metastatic adenopathy in the pelvis. Plan: -Okay for continued therapy. -Monitor CBC and CMP monthly with treatment -Follow up with wildlife biostation research ecologist as scheduled. -Repeat CT chest abdomen pelvis for restaging after the holidays. ? 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 ? 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 -Presently no vaginal bleeding. Plan: -Continue Eliquis 5 mg twice a day. ? (R10.2) Pelvic pain Assessment/Plan: -Under good control. Plan: -Continue current regimen. (L03.119) Recurrent cellulitis and lymphedema lower extremities. Assessment/Plan: -Chronic venous stasis and lymphedema. -Recurrent cellulitis due to cat scratch. Plan: -Rx Augmentin. -Referral to wound care center. Isidro Estevez DO CNOVSP Observed: 03/25/2018 Status: COMPLETED Source: [place] 10:00 AM [facility] REPOSITORY Visit (SP) Office ([facility]) KANU AJ ([id number]) 1945 F Date Time Provider Department 03/25/18 10:00 AM ISIDRO ESTEVEZ During your visit today, we recorded the following information about you: Temperature Pulse Blood pressure Weight 98.1 degrees 75/minute 142/62 98.4 kg Shelia Sanchez LPN 03/25/2018 10:27 AM Signed Est patient. Discuss recent labs, treatment Wednesday. C/O increased leg edema in the last month. 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 3) metastatic vaginal melanoma ? HPI: The patient is a 72 yo female with a PMH significant for DM2, asthma, VTE, and possible mild CKD as well has hysterectomy ~31 yrs ago who presented to [facility] ED 07/2013 with c/o dyspnea. CT chest significant for large b/l PE. One was a saddle embolus draped across the bifurcation of the main pulmonary artery and extending into both the right and left pulmonary artery segments per the CT report. Patient was transferred to [facility]. Not clear if she underwent thrombolysis. ? She recalls being discharged on Xarelto and was maintained on that drug until changed to Eliquis per her PCP. She was on that drug when she underwent work up for abdominal pain 03/2015. Underwent CT A/P 04/16/2015 that showed a large complex mass in the pelvis interpreted as arising from the uterus or an ovary and measuring 14.3 x 13.3 x 12.7 cm. It appeared to be well circumscribed not invading other structures. No evidence metastases elsewhere in abdomen. ? Patient was admitted to [facility] 04/19/2015 for acute left LE small DVT and possible cellulitis of the same leg. She was treated with vancomycin and anticoagulated with Lovenox and transferred to [facility] under the care of a gynecologic oncology surgeon, Dr. Sony Monteiro. ? Underwent surgery 05/03/2015. The final pathology demonstrated that within the RIGHT ovary there was a granulosa cell tumor. The greatest dimension of the ovary was 18 cm. The left fallopian tube was not involved. The omentum was not involved. left ovary and right fallopian tubes were not involved. Tumor was adherent to the left pelvic sidewall. No regional lymph node metastasis was observed. Lymph nodes were removed from the left pelvic, left periaortic areas. Focal angiolymphatic invasion was identified. 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 ? She was discharged to [facility]. Since the time of surgery, she had been having abdominal pain that is sharp and low in abdomen. It crescendos and is partially relieved with a BM. Returns shortly thereafter. Stools were loose and she had been having intermittent nausea with poor appetite. Was transferred to [facility] [place] 05/09/2015 however for low Hgb of 6.1 g/dL. Received transfusion and admitted to [facility]. ? She received a blood transfusion. She was discharged back to the nursing facility and subsequent discharge home. She had been doing home physical therapy. She was making improvements. Initially seen here in plan was for adjuvant chemotherapy once the acute issues were resolved. ? She was admitted to [facility] with hypotension and acute kidney injury on June 17. Serum creatinine was 2.75 mg/dL. She was started on hydration and admitted to the intensive care unit after initiating broad-spectrum antibiotics. Blood cultures remained negative. Urine culture showed 10-50,000 colony-forming units of gram-positive cocci. Patient was transitioned to Levaquin and metronidazole. Creatinine normalized. She was discharged and is now being followed at the wound clinic. ? She underwent excisional debridement of the nonhealing ulcer in the anterior abdominal wall with complex secondary wound closure on 07/18/2015. It was explained to her that 3 layers of sutures are in place. The superficial layer is non-dissolvable whereas the underlying 2 layers are dissolvable. There is a plan for the non-dissolvable sutures to be removed on the through . ? Previous therapy: 1) Adjuvant carbo/paclitaxel x6 cycles completed 12/2015. ? She underwent pelvic exam under anesthesia on 12/04/2016. During the procedure she was observed to have a large approximately 7-8 cm mass in the rectovaginal septum that infiltrated fairly downloaded to the hymenal ring. There was also infiltration along the right vaginal sidewall. Several core biopsies were obtained of the rectovaginal mass in the right vaginal sidewall. ? Areas revealed a poorly differentiated high-grade malignancy suggestive of malignant melanoma. Immunostains were positive for HMB-45, SOX-10 and [place]-1. CD3, CD20, CD45, CD138, inhibin, [place] 8 and S100 were negative. No BRAF mutation. ? Patient was admitted to [facility] for fever and malaise. She was found to have Escherichia coli sepsis. She was treated with broad-spectrum antibiotics. Urine appeared to be the source. She also received a 2 unit red blood cell transfusion. She underwent colonoscopy where in she was found to have extensive involvement of the rectum and was thereafter transferred to [facility]. On initial exam was determined that the tumor was significantly larger than it was on initial exam/biopsy. Therefore she underwent a palliative loop colostomy on 01/05. The patient had an unremarkable postoperative course and was discharged on Eliquis 5 mg twice a day and completed ciprofloxacin 14 days from her negative culture. ? 2) Palliative radiation on 01/26/2017. ? Current therapy: 1) Nivolumab. ? Presents for ongoing oncologic management. ? Interim history: Continues under care of ophthalmology. Continues eye drops BID. Has required intraocular steroid injection since December. Visual acuity improved. Pelvic pain under good control. No gross hematuria. No vaginal bleeding. No other unusual bleeding or unexplained bruising. She was seen by general surgery at [facility]. Hernia repair was not advised due to the complicated nature of her case. Cat tried to jump over her leg and clawed lower right leg. ? PMH, medications and allergies as below personally reviewed by me today. Any changes documented in appropriate section. ? ROS: Constitutional: Denies episodes of fever and night sweats. Neuro: Denies TANNER, vertigo, dizziness. HEENT: No recent change in voice, vision or hearing. Resp: Denies cough, wheeze and hemoptysis. Denies shortness of breath at rest. CVS: Denies exertional chest pain, PND, orthopnea. Chronic lower extremity edema stable. GI: Denies symptoms of stomatitis. Denies dysphagia and odynophagia. Denies reflux and nausea. : See above. Endo: Denies hot flashes. Denies polyuria and polydipsia. Denies heat and cold intolerance. Musculoskeletal: Denies bone, back, joint and muscular pain. Derm: See above. Heme: See above. Psych: Normal mood. ? PHYSICAL EXAM: Well-appearing and in no acute distress. performance status 80% BP 142/62 Pulse 75 Temp (Src) 98.1 (Temporal Artery) Wt 217 lb (98.4kg) EYES: Sclerae are anicteric bilaterally. Mild conjunctival injection. Eyelashes have lightened in color. NECK: Supple. LYMPHATIC: There is no palpable cervical, supraclavicular adenopathy. RESPIRATORY: Inspiratory breath sounds are of normal intensity in all muir. No rales, wheezes or rhonchi. CARDIOVASCULAR: Rhythm is regular. Normal intensity S1/S2. There is no gallop or murmur. ABDOMEN: The abdomen is nondistended. Ostomy appears healthy. There is stable surrounding herniation that is tender, but remains reducible. Extremities: Stable lower extremity swelling worse on the left. SKIN: Less swelling and edema bilaterally. Area right lateral lower leg from cat scratch looks like recurrent cellulitis. 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 ? 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 -She is tolerating OPDIVO treatment very well with significant response of the pelvic melanoma. She is having side effects including iritis and retinitis but the symptoms are stable to improving on local steroid therapy. -Reviewed the results of the most recent CT scans from 11/23 with her. Essentially CR in the pelvis. Continued responding metastatic adenopathy in the pelvis. Plan: -Okay for continued therapy. -Monitor CBC and CMP monthly with treatment -Follow up with wildlife biostation research ecologist as scheduled. -Repeat CT chest abdomen pelvis for restaging after the holidays. ? 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 ? 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 -Presently no vaginal bleeding. Plan: -Continue Eliquis 5 mg twice a day. ? (R10.2) Pelvic pain Assessment/Plan: -Under good control. Plan: -Continue current regimen. (L03.119) Recurrent cellulitis and lymphedema lower extremities. Assessment/Plan: -Chronic venous stasis and lymphedema. -Recurrent cellulitis due to cat scratch. Plan: -Rx Augmentin. -Referral to wound care center. Isidro Estevez DO Referring Provider: ISIDRO ESTEVEZ [[id number]] Allergies As of Date: 03/25/2018 Noted Allergy Reaction ASA (ASPIRIN) 05/09/2015 5 - Intolerance Comments: nose bleeds CLINDAMYCIN 05/09/2015 14 - Other: See Comments Comments: jerking, talking funny DEMEROL (MEPERIDINE (PF)) 05/09/2015 8 - GI Upset IODINE 11/23/2016 9 - Itching MORPHINE 05/09/2015 8 - GI Upset VALIUM (DIAZEPAM) 05/09/2015 8 - GI Upset Date Reviewed: 03/25/2018 Reviewed by: Shelia Sanchez LPN - Fully Assessed Reason for Visit: Established Patient [175] Primary Visit Diagnosis:Vaginal melanoma (HCC) [C52] Other Visit Diagnoses:Chronic deep vein thrombosis (DVT) of distal vein of left lower extremity (HCC) [I82.5Z2] Cellulitis of right lower extremity [L03.115] Lymphedema [I89.0] Malignant melanoma of skin (HCC) [C43.9] Order(s):amoxicillin-clavulanic acid (AUGMENTIN) 875-125 mg per tabletTake 1 tablet by mouth twice daily for 10 days.Disp: 20 tabletRfl: 0 CT ABD/PEL W IVCON [[id number]] Order #: [id number] FUTURE CT CHEST W IVCON [[id number]] Order #: [id number] FUTURE iv contrast (will be provided with radiology test)CT Chest ABD/PEL-Inject, intravenously, once for 1 dose.No IV access, insert saline lock prior to the beginning of sedation, infusion, injection of imaging exam. Discontinue saline lock post exam. If Pt. has a central line or IVAD, may access for administration according to line specific nursing protocol. Once exam is complete flush line and de-access according to line specific nursing protocol in the CT contrast administration guidelines link.Disp: 1 EachRfl: 0 enteric contrast (will be provided with radiology test)For CT CHESTABD/PEL W IVCON Routine order Administer, As Directed One Time Only, via Oral, Rectal, both Oral and Rectal, Enteric Tube, Stoma or Indwelling Catheter, Enteric Contrast as designated per enteric contrast guidelinesDisp: 1 EachRfl: 0 predniSONE (DELTASONE) 50 mg tabTake 1 tablet 13 hours, 7 hours and [address] scan.Disp: 3 tabletRfl: 0 Follow-up and Disposition History Recorded Prescriptions as of 03/25/2018 Sig: OXYCODONE 15 MG TABLET Take 15 mg by mouth every 12 * OXYCODONE 5 MG TABLET Take 1-2 tablets by mouth morena* NIVOLUMAB 240 MG/24 ML INTRAV* Inject 240 mg intravenously e* PROMETHAZINE 25 MG TABLET Take 1 tablet by mouth every * DIPHENHYDRAMINE 25 MG TABLET Take 25 mg by mouth once kaz* CHOLECALCIFEROL (VITAMIN D3) * Take 2,000 Units by mouth onc* APIXABAN 5 MG TABLET 1 tablet twice daily. Take 1/* Patient taking differently: Take 2.5 mg by mouth twice da* ONDANSETRON HCL 8 MG TABLET Take 1 tablet by mouth every * FUROSEMIDE 40 MG TABLET Take 40 mg by mouth twice jessica* ASCORBIC ACID (VITAMIN C) 1,0* Take 1,000 mg by mouth once d* METFORMIN 500 MG TABLET Take 1/2 tablet by mouth twic* CYANOCOBALAMIN (VIT B-12) 250* Take 1 tablet by mouth once d* CYCLOBENZAPRINE 10 MG TABLET Take 10 mg by mouth daily at * CETIRIZINE 10 MG TABLET Take 10 mg by mouth once kaz* ACETAMINOPHEN 325 MG TABLET Take 325 mg by mouth every 6 * ALBUTEROL SULFATE HFA 90 MCG/* Inhale 2 Puffs as instructed * AMOXICILLIN 875 MG-POTASSIUM * Take 1 tablet by mouth twice * IV CONTRAST (RADIOLOGY PROCED* CT Chest ABD/PEL-Inject, intr* ENTERIC CONTRAST (RADIOLOGY P* For CT CHESTABD/PEL W IVCON R* PREDNISONE 50 MG TABLET Take 1 tablet 13 hours, 7 valerie* DOXYCYCLINE MONOHYDRATE 100 M* Take 1 tablet by mouth twice * Patient not taking: Reported on 03/25/2018 DIPHENHYDRAMINE 50 MG CAPSULE Take 1 capsule by mouth as di* Problem List As Of Date 03/25/2018 Noted Resolved 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 Dehydration [E86.0] INVALID FOR* CKD (chronic kidney disease) stage 3, GFR 30-59*INVALID FOR* Lymphedema [I89.0] INVALID FOR* Cellulitis of left lower extremity [L03.116] INVALID FOR* Visit Notes: >> Shelia Laura OLGUIN WedMar 25, 2018 10:06 AM Status: Signed Est patient. Discuss recent labs, treatment Wednesday. C/O increased leg edema in the last month. Shelia Sanchez LPN Encounter Status:Closed by ISIDRO ESTEVEZ DO on 03/25/18 [place] ABS GR + CBC Collected: 03/25/2018 Status: F Source: [place] 9:54 AM [facility] REPOSITORY TYPE CODE TESTS RESULT OUT OF REFERENCE UNITS RANGE LAB WWBC 3.70-11.00 k/uL [place] WBC 6.34 LAB WRBC 3.90-5.20 m/uL [place] RBC 4.31 LAB WHGB 11.5-15.5 g/dL [place] Hemoglobin 12.6 LAB WHCT 36.0-46.0 % [place] Hematocrit 40.9 LAB WMCV 80.0-100.0 fL [place] MCV 94.9 LAB WMCH 26.0-34.0 pg [place] MCH 29.2 LAB WMCHC 30.5-36.0 g/dL [place] MCHC 30.8 LAB WRDW 11.5-15.0 % [place] RDW 14.7 LAB WPLT 150-400 k/uL [place] Platelet Cnt 167 LAB WMPV 9.0-12.7 fL [place] MPV 10.5 Result Comment: Test performed at: [facility], [address] [place] [address] Rd., [place] [address]. LAB ABGRAN 1.45-7.50 k/uL Absol Gran 4.99 Count COMP METABOLIC PANEL Collected: 03/25/2018 Status: F Source: [place] 9:54 AM [facility] REPOSITORY TYPE CODE TESTS RESULT OUT OF REFERENCE UNITS RANGE LAB TP 6.3-8.0 g/dL Protein, Total 6.6 LAB ALB 3.9-4.9 g/dL Albumin Low 3.7 LAB CA 8.5-10.2 mg/dL Calcium, Total 9.5 LAB TBIL 0.2-1.3 mg/dL Bilirubin, Total 0.5 LAB ALKP 34-123 U/L Alkaline Phosphatase 103 LAB AST 13-35 U/L AST 17 LAB GLU 74-99 mg/dL Glucose High 165 LAB BUN 7-21 mg/dL BUN High 33 LAB CRET 0.58-0.96 mg/dL Creatinine High 1.37 LAB NA 136-144 mmol/L Sodium 139 LAB K 3.7-5.1 mmol/L Potassium 3.9 LAB CL 97-105 mmol/L Chloride 103 LAB CO2 22-30 mmol/L CO2 28 LAB AGAP mmol/L Anion Gap 8 LAB ALT 7-38 U/L ALT 15 LAB GFRAA eGFR- 46 Amer. LAB GFRNAA . eGFR-All Other Races 38 Result Comment: eGFR (Estimated GFR) Units of measure: mL/min/1.73 meters squared eGFR is derived from the reexpressed MDRD Study equation using the following parameters: serum creatinine, age, gender and race. The creatinine assay has been calibrated to be traceable to IDMS. An eGFR <60 mL/min/1.73m2 for >3 months is consistent with chronic kidney disease. Refer to KDOQI guidelines for clinical interpretation. In patients with unstable renal function, e.g. those with acute kidney injury, the eGFR may not accurately reflect actual GFR. TSH Collected: 03/25/2018 Status: F Source: [place] 9:54 AM [facility] REPOSITORY TYPE CODE TESTS RESULT OUT OF RANGE REFERENCE UNITS LAB TSH 0.400-5.500 uU/mL TSH 3.130 Performed By: #### TSH #### [facility] [address], [place] [address] PROGRESS Observed: 03/17/2018 Status: COMPLETED Source: [place] 2:34 PM [facility] REPOSITORY HNO ID: [id number] Author: Lena Way (Sw) Service: (none) Author Type: Boring Machine Operator Vertical Type: Progress Notes Filed: 03/17/2018 2:35 PM Note Text: SOCIAL WORK FOLLOW UP NOTE: [facility] Date of service: March 17, 2018 Kanu Aj is being seen for a follow up social work visit. Today's visit includes: patient TOPICS ADDRESSED: Finances; ROXIE obtained patient signature and needed information. ROXIE faxed to [facility]. PLAN: Assist with financial support applications and Continue follow up as needed F/U APPOINTMENT: ADDI Mejia Observed: 03/17/2018 Status: COMPLETED Source: [place] 12:00 AM [facility] REPOSITORY Social Work (HEMAWS) KANU AJ ([id number]) 1945 F Date Time Provider Department 03/17/[address] (SW) During your visit today, we recorded the following information about you: ADDI Jang 03/17/2018 2:35 PM Signed SOCIAL WORK FOLLOW UP NOTE: [facility] Date of service: March 17, 2018 Kanu Aj is being seen for a follow up social work visit. Today's visit includes: patient TOPICS ADDRESSED: Finances; ROXIE obtained patient signature and needed information. ROXIE faxed to [facility]. PLAN: Assist with financial support applications and Continue follow up as needed F/U APPOINTMENT: PRN ADDI Jang Allergies As of Date: 03/17/2018 Noted Allergy Reaction ASA (ASPIRIN) 05/09/2015 5 - Intolerance Comments: nose bleeds CLINDAMYCIN 05/09/2015 14 - Other: See Comments Comments: denny silva DEMEROL (MEPERIDINE (PF)) 05/09/2015 8 - GI Upset IODINE 11/23/2016 9 - Itching MORPHINE 05/09/2015 8 - GI Upset VALIUM (DIAZEPAM) 05/09/2015 8 - GI Upset Date Reviewed: 03/14/2018 Reviewed by: Cecilia Ambriz (Rn) BRIT Christina - Fully Assessed Reason for Visit: Social Work Services [507] Prescriptions as of 03/17/2018 Sig: NIVOLUMAB 240 MG/24 ML INTRAV* Inject 240 mg intravenously e* PROMETHAZINE 25 MG TABLET Take 1 tablet by mouth every * DIPHENHYDRAMINE 25 MG TABLET Take 25 mg by mouth once kaz* OXYCODONE 5 MG TABLET Take 1-2 tablets by mouth morena* DOXYCYCLINE MONOHYDRATE 100 M* Take 1 tablet by mouth twice * OXYCODONE 15 MG TABLET Take 15 mg by mouth every 12 * DIPHENHYDRAMINE 50 MG CAPSULE Take 1 capsule by mouth as di* CHOLECALCIFEROL (VITAMIN D3) * Take 2,000 Units by mouth onc* APIXABAN 5 MG TABLET 1 tablet twice daily. Take 1/* Patient taking differently: Take 2.5 mg by mouth twice da* ONDANSETRON HCL 8 MG TABLET Take 1 tablet by mouth every * FUROSEMIDE 40 MG TABLET Take 40 mg by mouth twice jessica* ASCORBIC ACID (VITAMIN C) 1,0* Take 1,000 mg by mouth once d* METFORMIN 500 MG TABLET Take 1/2 tablet by mouth twic* CYANOCOBALAMIN (VIT B-12) 250* Take 1 tablet by mouth once d* CYCLOBENZAPRINE 10 MG TABLET Take 10 mg by mouth daily at * CETIRIZINE 10 MG TABLET Take 10 mg by mouth once kaz* ACETAMINOPHEN 325 MG TABLET Take 325 mg by mouth every 6 * ALBUTEROL SULFATE HFA 90 MCG/* Inhale 2 Puffs as instructed * Problem List As Of Date 03/17/2018 Noted Resolved 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 Dehydration [E86.0] INVALID FOR* CKD (chronic kidney disease) stage 3, GFR 30-59*INVALID FOR* Lymphedema [I89.0] INVALID FOR* Cellulitis of left lower extremity [L03.116] INVALID FOR* Encounter Status:Closed by LENA WAY on 03/17/18 PROGRESS Observed: 03/03/2018 Status: COMPLETED Source: [place] 10:38 AM [facility] REPOSITORY HNO ID: [id number] Author: Lena Way (Sw) Service: (none) Author Type: Boring Machine Operator Vertical Type: Progress Notes Filed: 03/03/2018 10:40 AM Note Text: Social Work Problem Referral Note INFORMATION/REFERRAL : Kanu Aj 72 year old female was referred to [facility] Social Work for the following reason(s): financial assistance - meals, parking, etc. PERSONS INTERVIEWED: patient and BMS motor vehicle field representative INTERVENTION: Phone Contact Affect/Mood: The patient is noted as appropriate IDENTIFIED PROBLEMS/NEEDS: Financial Intervention/Referral to be provided:Arrangements made for continuity of care IMPRESSION/PLAN: ROXIE received fax from [employer] regarding renewal for Opdivo. ROXIE called BMS to clarify if patient needs to spend at least 3% of her income on medication costs before being eligible for medication since Opdivo isn't covered under part D. ROXIE was informed this is not the case for Part B drugs and that patient can turn in her application at any time and they will review it in April. ROXIE completed form and called patient to arrange for her to come in and sign her portion at her next appointment. Patient denies other needs. F/U APPOINTMENT: 03/14/18 ADDI Jang CNSW Observed: 03/03/2018 Status: COMPLETED Source: [place] 12:00 AM [facility] REPOSITORY Social Work (CRUZ) KANU AJ ([id number]) 1945 F Date Time Provider Department 03/03/[address] CRUZ During your visit today, we recorded the following information about you: ADDI Jang 03/03/2018 10:40 AM Signed Social Work Problem Referral Note INFORMATION/REFERRAL : Kanu Aj 72 year old female was referred to [facility] Social Work for the following reason(s): financial assistance - meals, parking, etc. PERSONS INTERVIEWED: patient and BMS motor vehicle field representative INTERVENTION: Phone Contact Affect/Mood: The patient is noted as appropriate IDENTIFIED PROBLEMS/NEEDS: Financial Intervention/Referral to be provided:Arrangements made for continuity of care IMPRESSION/PLAN: ROXIE received fax from [employer] regarding renewal for Opdivo. SW called BMS to clarify if patient needs to spend at least 3% of her income on medication costs before being eligible for medication since Opdivo isn't covered under part D. ROXIE was informed this is not the case for Part B drugs and that patient can turn in her application at any time and they will review it in April. ROXIE completed form and called patient to arrange for her to come in and sign her portion at her next appointment. Patient denies other needs. F/U APPOINTMENT: 03/14/18 ADDI Jang Allergies As of Date: 03/03/2018 Noted Allergy Reaction ASA (ASPIRIN) 05/09/2015 5 - Intolerance Comments: nose bleeds CLINDAMYCIN 05/09/2015 14 - Other: See Comments Comments: jerking, talking funny DEMEROL (MEPERIDINE (PF)) 05/09/2015 8 - GI Upset IODINE 11/23/2016 9 - Itching MORPHINE 05/09/2015 8 - GI Upset VALIUM (DIAZEPAM) 05/09/2015 8 - GI Upset Date Reviewed: 02/28/2018 Reviewed by: Melani Cazares, RN, RN - Fully Assessed Reason for Visit: Social Work Services [507] Prescriptions as of 03/03/2018 Sig: DIPHENHYDRAMINE 25 MG TABLET Take 25 mg by mouth once kaz* OXYCODONE 5 MG TABLET Take 1-2 tablets by mouth morena* DOXYCYCLINE MONOHYDRATE 100 M* Take 1 tablet by mouth twice * OXYCODONE 15 MG TABLET Take 15 mg by mouth every 12 * DIPHENHYDRAMINE 50 MG CAPSULE Take 1 capsule by mouth as di* CHOLECALCIFEROL (VITAMIN D3) * Take 2,000 Units by mouth onc* APIXABAN 5 MG TABLET 1 tablet twice daily. Take 1/* Patient taking differently: Take 2.5 mg by mouth twice da* ONDANSETRON HCL 8 MG TABLET Take 1 tablet by mouth every * PHENERGAN ORAL Take by mouth as needed. 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 Dehydration [E86.0] INVALID FOR* CKD (chronic kidney disease) stage 3, GFR 30-59*INVALID FOR* Lymphedema [I89.0] INVALID FOR* Cellulitis of left lower extremity [L03.116] INVALID FOR* Encounter Status:Closed by LENA WAY on 03/03/18 PROGRESS Observed: 02/25/2018 Status: COMPLETED Source: [place] 12:02 PM [facility] REPOSITORY O ID: [id number] Author: Liliya Magana Service: (none) Author Type: Physician Type: Progress Notes Filed: 02/26/2018 10:03 AM Note Text: Diagnoses: 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 3) metastatic vaginal melanoma ? HPI: The patient is a 72 yo female with a PMH significant for DM2, asthma, VTE, and possible mild CKD as well has hysterectomy ~31 yrs ago who presented to [facility] ED 07/2013?with c/o dyspnea. CT chest significant for?large b/l PE. One was a saddle embolus draped across the bifurcation of the main pulmonary artery and extending into both the right and left pulmonary artery segments per the CT report. Patient was transferred to [facility]. Not clear if she underwent thrombolysis. ? She recalls being discharged on Xarelto and was maintained on that drug until changed to Eliquis per her PCP. She was on that drug when she underwent work up for abdominal pain 03/2015. Underwent CT A/P 04/16/2015 that showed a large complex mass in the pelvis interpreted as arising from the uterus or an ovary and measuring 14.3 x 13.3 x 12.7 cm. It appeared to be well circumscribed not invading other structures. No evidence metastases elsewhere in abdomen. ? Patient was admitted to [facility] 04/19/2015 for acute left LE small DVT?and possible cellulitis of the same leg. She was treated with vancomycin and anticoagulated with Lovenox and transferred to [facility] ([facility]) under the care of a gynecologic oncology surgeon, Dr. Sony Monteiro. ? Underwent surgery 05/03/2015. The final pathology demonstrated that within the RIGHT ovary there was a granulosa cell tumor. The greatest dimension of the ovary was 18 cm. The left fallopian tube was not involved. The omentum was not involved. left ovary and right fallopian tubes were not involved. Tumor was adherent to the left pelvic sidewall. No regional lymph node metastasis was observed. Lymph nodes were removed from the left pelvic, left periaortic areas. Focal angiolymphatic invasion was identified. 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 ? She was discharged to [facility]. Since the time of surgery, she had been having abdominal pain that is sharp and low in abdomen. It crescendos and is partially relieved with a BM. Returns shortly thereafter. Stools were loose and she had been having intermittent nausea with poor appetite. Was transferred to [facility] 05/09/2015 however for low Hgb of 6.1 g/dL. Received transfusion and admitted to [facility]. ? She received a blood transfusion. She was discharged back to the nursing facility and subsequent discharge home. She had been doing home physical therapy. She was making improvements. Initially seen here in plan was for adjuvant chemotherapy once the acute issues were resolved. ? She was admitted to [facility] with hypotension and acute kidney injury on June 17. Serum creatinine was 2.75 mg/dL. She was started on hydration and admitted to the intensive care unit after initiating broad-spectrum antibiotics. Blood cultures remained negative. Urine culture showed 10-50,000 colony-forming units of gram-positive cocci. Patient was transitioned to Levaquin and metronidazole. Creatinine normalized. She was discharged and is now being followed at the wound clinic. ? She underwent excisional debridement of the nonhealing ulcer in the anterior abdominal wall with complex secondary wound closure on 07/18/2015. It was explained to her that 3 layers of sutures are in place. The superficial layer is non-dissolvable whereas the underlying 2 layers are dissolvable. There is a plan for the non-dissolvable sutures to be removed on the through . ? Previous therapy: 1) Adjuvant carbo/paclitaxel x6 cycles completed 12/2015. ? She underwent pelvic exam under anesthesia on 12/04/2016. During the procedure she was observed to have a large approximately 7- 8 cm mass in the rectovaginal septum that infiltrated fairly downloaded to the hymenal ring. There was also infiltration along the right vaginal sidewall. Several core biopsies were obtained of the rectovaginal mass in the right vaginal sidewall. ? Areas revealed a poorly differentiated high-grade malignancy suggestive of malignant melanoma. Immunostains were positive for HMB-45, SOX-10 and [place]-1. CD3, CD20, CD45, CD138, inhibin, [place] 8 and S100 were negative. No BRAF mutation. ? Patient was admitted to [facility] for fever and malaise. She was found to have Escherichia coli sepsis. She was treated with broad-spectrum antibiotics. Urine appeared to be the source. She also received a 2 unit red blood cell transfusion. She underwent colonoscopy where in she was found to have extensive involvement of the rectum and was thereafter transferred to [facility]. On initial exam was determined that the tumor was significantly larger than it was on initial exam/biopsy. Therefore she underwent a palliative loop colostomy on 01/05. The patient had an unremarkable postoperative course and was discharged on Eliquis 5 mg twice a day and completed ciprofloxacin 14 days from her negative culture. ? 2) Palliative radiation on 01/26/2017. ? Current therapy: 1) Nivolumab. ? Presents for ongoing oncologic management. ? Interim history: Got steroid injection right eye. She also has some scleral hemorrhage today. She has no blurred vision or pain in her eye. ? No GI side effects. no jaundice or itching. No rash. she has no cough or shortness of breath. ? Pelvic pain under good control. No gross hematuria. No vaginal bleeding. No other unusual bleeding or unexplained bruising. ? she complained of having increased, redness of her legs. She just finished a course of antibiotics 2 weeks ago. ? PMH, medications and allergies as below personally reviewed by me today. Any changes documented in appropriate section. ? ROS: Constitutional: Denies episodes of fever and night sweats. Neuro: ?Denies TANNER, vertigo, dizziness. HEENT: No recent change in voice, vision or hearing. Resp: Denies cough, wheeze and hemoptysis. Denies shortness of breath at rest. CVS: Denies exertional chest pain, PND, orthopnea. Chronic lower extremity edema stable. GI: Denies symptoms of stomatitis. Denies dysphagia and odynophagia. Denies reflux and nausea. : See above. Endo: Denies hot flashes. Denies polyuria and polydipsia. Denies heat and cold intolerance. Musculoskeletal: Denies bone, back, joint and muscular pain. Derm: Denies rash. Denies diffuse pruritis. Heme: See above. Psych: Normal mood. ? PHYSICAL EXAM: ? Well-appearing and in no acute distress. performance status 80% BP 157/70 Pulse 89 Temp (Src) 97.8 (Temporal Artery) Wt 211 lb (95.7kg) EYES: Sclerae are anicteric bilaterally. Mild conjunctival injection. Eyelashes have lightened in color. NECK: Supple. LYMPHATIC: There is no palpable cervical, supraclavicular adenopathy. ? RESPIRATORY: Inspiratory breath sounds are of normal intensity in all muir. No rales, wheezes or rhonchi. CARDIOVASCULAR: Rhythm is regular. ?Normal intensity S1/S2. There is no gallop or murmur. ABDOMEN: The abdomen is nondistended. Ostomy appears healthy. There is stable surrounding herniation. Extremities: Stable lower extremity swelling worse on the left. SKIN: Less swelling and edema bilaterally. possible flare of cellulitis of the left leg versus stasis dermatitis. 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 ? LABS: Component Latest Ref Rng AND Units 02/25/2018 WBC, [place] 3.70 - 11.00 k/uL 6.49 RBC, [place] 3.90 - 5.20 m/uL 4.27 Hemoglobin, [place] 11.5 - 15.5 g/dL 12.6 Hematocrit, [place] 36.0 - 46.0 % 40.2 MCV, [place] 80.0 - 100.0 fL 94.1 MCH, [place] 26.0 - 34.0 pg 29.5 MCHC, [place] 30.5 - 36.0 g/dL 31.3 RDW, [place] 11.5 - 15.0 % 13.8 Platelet Cnt, [place] 150 - 400 k/uL 183 MPV, [place] 9.0 - 12.7 fL 10.1 Absol Gran Count 1.45 - 7.50 k/uL 5.21 Component Latest Ref Rng AND Units 02/25/2018 Protein, Total 6.3 - 8.0 g/dL 6.8 Albumin 3.9 - 4.9 g/dL 4.0 Calcium 8.5 - 10.2 mg/dL 10.0 Bilirubin, Total 0.2 - 1.3 mg/dL 0.8 Alkaline Phosphatase 34 - 123 U/L 99 AST 13 - 35 U/L 13 Glucose 74 - 99 mg/dL 181 (H) BUN 7 - 21 mg/dL 32 (H) Creatinine 0.58 - 0.96 mg/dL 1.17 (H) Sodium 136 - 144 mmol/L 139 Potassium 3.7 - 5.1 mmol/L 4.3 Chloride 97 - 105 mmol/L 105 CO2 22 - 30 mmol/L 26 Anion Gap mmol/L 8 ALT 7 - 38 U/L 13 eGFR- 55 eGFR-All Other Races . 45 TSH 0.400 - 5.500 uU/mL 2.360 ASSESSMENT/PLAN: (C52) Melanoma of vagina (HCC) ?(primary encounter diagnosis) Assessment/Plan: -KPS is 80%. -She is tolerating OPDIVO treatment very well with significant response of the pelvic melanoma. She is having side effects including iritis and retinitis but the symptoms are stable to improving on local steroid therapy. Plan: -Okay for continued therapy. -Monitor CBC and CMP monthly with treatment -Follow up with wildlife biostation research ecologist as scheduled. -Repeat CT chest abdomen pelvis for restaging in March. ? 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 ? 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 -Presently no vaginal bleeding. Plan: -Continue Eliquis 5 mg twice a day. ? (R10.2) Pelvic pain Assessment/Plan: -Under good control. Plan: -Continue current regimen oxycodone. ? (L03.119) Recurrent cellulitis and lymphedema lower extremities. Assessment/Plan: -She has chronic stasis dermatitis. -Chronic venous stasis and lymphedema Plan: - topical hydrocortisone and lotion on both legs - Short course of doxycycline 100mg twice daily x 10 days Liliya Magana MD Cc: Dr. Chente Daigle CNOVSP Observed: 02/25/2018 Status: COMPLETED Source: [place] 11:40 AM [facility] REPOSITORY Visit (SP) Office ([facility]) KANU AJ ([id number]) 1945 F Date Time Provider Department 02/25/18 11:40 AM LILIYA MAGANA During your visit today, we recorded the following information about you: Temperature Pulse Blood pressure Weight 97.8 degrees 89/minute 157/70 95.7 kg Liliya Magana MD 02/26/2018 10:03 AM Signed Diagnoses: 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 3) metastatic vaginal melanoma ? HPI: The patient is a 72 yo female with a PMH significant for DM2, asthma, VTE, and possible mild CKD as well has hysterectomy ~31 yrs ago who presented to [facility] ED 07/2013?with c/o dyspnea. CT chest significant for?large b/l PE. One was a saddle embolus draped across the bifurcation of the main pulmonary artery and extending into both the right and left pulmonary artery segments per the CT report. Patient was transferred to [facility]. Not clear if she underwent thrombolysis. ? She recalls being discharged on Xarelto and was maintained on that drug until changed to Eliquis per her PCP. She was on that drug when she underwent work up for abdominal pain 03/2015. Underwent CT A/P 04/16/2015 that showed a large complex mass in the pelvis interpreted as arising from the uterus or an ovary and measuring 14.3 x 13.3 x 12.7 cm. It appeared to be well circumscribed not invading other structures. No evidence metastases elsewhere in abdomen. ? Patient was admitted to [facility] 04/19/2015 for acute left LE small DVT?and possible cellulitis of the same leg. She was treated with vancomycin and anticoagulated with Lovenox and transferred to [facility]) under the care of a gynecologic oncology surgeon, Dr. Sony Monteiro. ? Underwent surgery 05/03/2015. The final pathology demonstrated that within the RIGHT ovary there was a granulosa cell tumor. The greatest dimension of the ovary was 18 cm. The left fallopian tube was not involved. The omentum was not involved. left ovary and right fallopian tubes were not involved. Tumor was adherent to the left pelvic sidewall. No regional lymph node metastasis was observed. Lymph nodes were removed from the left pelvic, left periaortic areas. Focal angiolymphatic invasion was identified. 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 ? She was discharged to [facility]. Since the time of surgery, she had been having abdominal pain that is sharp and low in abdomen. It crescendos and is partially relieved with a BM. Returns shortly thereafter. Stools were loose and she had been having intermittent nausea with poor appetite. Was transferred to [facility] 05/09/2015 however for low Hgb of 6.1 g/dL. Received transfusion and admitted to [facility]. ? She received a blood transfusion. She was discharged back to the nursing facility and subsequent discharge home. She had been doing home physical therapy. She was making improvements. Initially seen here in plan was for adjuvant chemotherapy once the acute issues were resolved. ? She was admitted to [facility] with hypotension and acute kidney injury on June 17. Serum creatinine was 2.75 mg/dL. She was started on hydration and admitted to the intensive care unit after initiating broad-spectrum antibiotics. Blood cultures remained negative. Urine culture showed 10-50,000 colony-forming units of gram-positive cocci. Patient was transitioned to Levaquin and metronidazole. Creatinine normalized. She was discharged and is now being followed at the wound clinic. ? She underwent excisional debridement of the nonhealing ulcer in the anterior abdominal wall with complex secondary wound closure on 07/18/2015. It was explained to her that 3 layers of sutures are in place. The superficial layer is non-dissolvable whereas the underlying 2 layers are dissolvable. There is a plan for the non-dissolvable sutures to be removed on the through . ? Previous therapy: 1) Adjuvant carbo/paclitaxel x6 cycles completed 12/2015. ? She underwent pelvic exam under anesthesia on 12/04/2016. During the procedure she was observed to have a large approximately 7-8 cm mass in the rectovaginal septum that infiltrated fairly downloaded to the hymenal ring. There was also infiltration along the right vaginal sidewall. Several core biopsies were obtained of the rectovaginal mass in the right vaginal sidewall. ? Areas revealed a poorly differentiated high-grade malignancy suggestive of malignant melanoma. Immunostains were positive for HMB-45, SOX-10 and [place]-1. CD3, CD20, CD45, CD138, inhibin, [place] 8 and S100 were negative. No BRAF mutation. ? Patient was admitted to [facility] for fever and malaise. She was found to have Escherichia coli sepsis. She was treated with broad-spectrum antibiotics. Urine appeared to be the source. She also received a 2 unit red blood cell transfusion. She underwent colonoscopy where in she was found to have extensive involvement of the rectum and was thereafter transferred to [facility]. On initial exam was determined that the tumor was significantly larger than it was on initial exam/biopsy. Therefore she underwent a palliative loop colostomy on 01/05. The patient had an unremarkable postoperative course and was discharged on Eliquis 5 mg twice a day and completed ciprofloxacin 14 days from her negative culture. ? 2) Palliative radiation on 01/26/2017. ? Current therapy: 1) Nivolumab. ? Presents for ongoing oncologic management. ? Interim history: Got steroid injection right eye. She also has some scleral hemorrhage today. She has no blurred vision or pain in her eye. ? No GI side effects. no jaundice or itching. No rash. she has no cough or shortness of breath. ? Pelvic pain under good control. No gross hematuria. No vaginal bleeding. No other unusual bleeding or unexplained bruising. ? she complained of having increased, redness of her legs. She just finished a course of antibiotics 2 weeks ago. ? PMH, medications and allergies as below personally reviewed by me today. Any changes documented in appropriate section. ? ROS: Constitutional: Denies episodes of fever and night sweats. Neuro: ?Denies TANNER, vertigo, dizziness. HEENT: No recent change in voice, vision or hearing. Resp: Denies cough, wheeze and hemoptysis. Denies shortness of breath at rest. CVS: Denies exertional chest pain, PND, orthopnea. Chronic lower extremity edema stable. GI: Denies symptoms of stomatitis. Denies dysphagia and odynophagia. Denies reflux and nausea. : See above. Endo: Denies hot flashes. Denies polyuria and polydipsia. Denies heat and cold intolerance. Musculoskeletal: Denies bone, back, joint and muscular pain. Derm: Denies rash. Denies diffuse pruritis. Heme: See above. Psych: Normal mood. ? PHYSICAL EXAM: ? Well-appearing and in no acute distress. performance status 80% BP 157/70 Pulse 89 Temp (Src) 97.8 (Temporal Artery) Wt 211 lb (95.7kg) EYES: Sclerae are anicteric bilaterally. Mild conjunctival injection. Eyelashes have lightened in color. NECK: Supple. LYMPHATIC: There is no palpable cervical, supraclavicular adenopathy. ? RESPIRATORY: Inspiratory breath sounds are of normal intensity in all muir. No rales, wheezes or rhonchi. CARDIOVASCULAR: Rhythm is regular. ?Normal intensity S1/S2. There is no gallop or murmur. ABDOMEN: The abdomen is nondistended. Ostomy appears healthy. There is stable surrounding herniation. Extremities: Stable lower extremity swelling worse on the left. SKIN: Less swelling and edema bilaterally. possible flare of cellulitis of the left leg versus stasis dermatitis. 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 ? LABS: Component Latest Ref Rng AND Units 02/25/2018 WBC, [place] 3.70 - 11.00 k/uL 6.49 RBC, [place] 3.90 - 5.20 m/uL 4.27 Hemoglobin, [place] 11.5 - 15.5 g/dL 12.6 Hematocrit, [place] 36.0 - 46.0 % 40.2 MCV, [place] 80.0 - 100.0 fL 94.1 MCH, [place] 26.0 - 34.0 pg 29.5 MCHC, [place] 30.5 - 36.0 g/dL 31.3 RDW, [place] 11.5 - 15.0 % 13.8 Platelet Cnt, [place] 150 - 400 k/uL 183 MPV, [place] 9.0 - 12.7 fL 10.1 Absol Gran Count 1.45 - 7.50 k/uL 5.21 Component Latest Ref Rng AND Units 02/25/2018 Protein, Total 6.3 - 8.0 g/dL 6.8 Albumin 3.9 - 4.9 g/dL 4.0 Calcium 8.5 - 10.2 mg/dL 10.0 Bilirubin, Total 0.2 - 1.3 mg/dL 0.8 Alkaline Phosphatase 34 - 123 U/L 99 AST 13 - 35 U/L 13 Glucose 74 - 99 mg/dL 181 (H) BUN 7 - 21 mg/dL 32 (H) Creatinine 0.58 - 0.96 mg/dL 1.17 (H) Sodium 136 - 144 mmol/L 139 Potassium 3.7 - 5.1 mmol/L 4.3 Chloride 97 - 105 mmol/L 105 CO2 22 - 30 mmol/L 26 Anion Gap mmol/L 8 ALT 7 - 38 U/L 13 eGFR- 55 eGFR-All Other Races . 45 TSH 0.400 - 5.500 uU/mL 2.360 ASSESSMENT/PLAN: (C52) Melanoma of vagina (HCC) ?(primary encounter diagnosis) Assessment/Plan: -KPS is 80%. -She is tolerating OPDIVO treatment very well with significant response of the pelvic melanoma. She is having side effects including iritis and retinitis but the symptoms are stable to improving on local steroid therapy. Plan: -Okay for continued therapy. -Monitor CBC and CMP monthly with treatment -Follow up with wildlife biostation research ecologist as scheduled. -Repeat CT chest abdomen pelvis for restaging in March. ? 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 ? 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 -Presently no vaginal bleeding. Plan: -Continue Eliquis 5 mg twice a day. ? (R10.2) Pelvic pain Assessment/Plan: -Under good control. Plan: -Continue current regimen oxycodone. ? (L03.119) Recurrent cellulitis and lymphedema lower extremities. Assessment/Plan: -She has chronic stasis dermatitis. -Chronic venous stasis and lymphedema Plan: - topical hydrocortisone and lotion on both legs - Short course of doxycycline 100mg twice daily x 10 days Liliya Magana MD Cc: Dr. 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 Earliest Fill Date: 02/25/18Disp: 180 tabletRfl: 0 doxycycline monohydrate 100 mg tabletTake 1 tablet by mouth twice daily.Disp: 20 tabletRfl: 0 Level of Service: EST PATIENT VISIT LEVEL 3 [[id number]] Disposition: Return in about 4 weeks (around 03/25/2018). Follow-up and Disposition History Recorded Prescriptions as of 02/25/2018 Sig: DIPHENHYDRAMINE 25 MG TABLET Take 25 mg by mouth once kaz* OXYCODONE 5 MG TABLET Take 1-2 tablets by mouth morena* OXYCODONE 15 MG TABLET Take 15 mg by mouth every 12 * CHOLECALCIFEROL (VITAMIN D3) * Take 2,000 Units by mouth onc* APIXABAN 5 MG TABLET 1 tablet twice daily. Take 1/* Patient taking differently: Take 2.5 mg by mouth twice da* ONDANSETRON HCL 8 MG TABLET Take 1 tablet by mouth every * PHENERGAN ORAL Take by mouth as needed. FUROSEMIDE 40 MG TABLET Take 40 mg by mouth twice jessica* ASCORBIC ACID (VITAMIN C) 1,0* Take 1,000 mg by mouth once d* METFORMIN 500 MG TABLET Take 1/2 tablet by mouth twic* CYANOCOBALAMIN (VIT B-12) 250* Take 1 tablet by mouth once d* CYCLOBENZAPRINE 10 MG TABLET Take 10 mg by mouth daily at * CETIRIZINE 10 MG TABLET Take 10 mg by mouth once kaz* ACETAMINOPHEN 325 MG TABLET Take 325 mg by mouth every 6 * ALBUTEROL SULFATE HFA 90 MCG/* Inhale 2 Puffs as instructed * DOXYCYCLINE MONOHYDRATE 100 M* Take 1 tablet by mouth twice * DIPHENHYDRAMINE 50 MG CAPSULE Take 1 capsule by mouth as di* Medication notes this encounter DIPHENHYDRAMINE 50 MG CAPSULE >> Tita Sena MA 02/25/2018 11:08 AM >> TITA SENA MA WedFeb 25, 2018 11:08 AM No longer taking this strength. 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 Dehydration [E86.0] INVALID FOR* CKD (chronic kidney disease) stage 3, GFR 30-59*INVALID FOR* Lymphedema [I89.0] INVALID FOR* Cellulitis of left lower extremity [L03.116] INVALID FOR* Encounter Status:Closed by LILIYA MAGANA MD on 02/26/18 [place] ABS GR + CBC Collected: 02/25/2018 Status: F Source: [place] 10:52 AM [facility] REPOSITORY TYPE CODE TESTS RESULT OUT OF REFERENCE UNITS RANGE LAB WWBC 3.70-11.00 k/uL [place] WBC 6.49 LAB WRBC 3.90-5.20 m/uL [place] RBC 4.27 LAB WHGB 11.5-15.5 g/dL [place] Hemoglobin 12.6 LAB WHCT 36.0-46.0 % [place] Hematocrit 40.2 LAB WMCV 80.0-100.0 fL [place] MCV 94.1 LAB WMCH 26.0-34.0 pg [place] MCH 29.5 LAB WMCHC 30.5-36.0 g/dL [place] MCHC 31.3 LAB WRDW 11.5-15.0 % [place] RDW 13.8 LAB WPLT 150-400 k/uL [place] Platelet Cnt 183 LAB WMPV 9.0-12.7 fL [place] MPV 10.1 Result Comment: Test performed at: [facility], [address] [place] [address]. LAB ABGRAN 1.45-7.50 k/uL Absol Gran 5.21 Count COMP METABOLIC PANEL Collected: 02/25/2018 Status: F Source: [place] 10:52 AM [facility] REPOSITORY TYPE CODE TESTS RESULT OUT OF REFERENCE UNITS RANGE LAB TP 6.3-8.0 g/dL Protein, Total 6.8 LAB ALB 3.9-4.9 g/dL Albumin 4.0 LAB CA 8.5-10.2 mg/dL Calcium, Total 10.0 LAB TBIL 0.2-1.3 mg/dL Bilirubin, Total 0.8 LAB ALKP 34-123 U/L Alkaline Phosphatase 99 LAB AST 13-35 U/L AST 13 LAB GLU 74-99 mg/dL Glucose High 181 LAB BUN 7-21 mg/dL BUN High 32 LAB CRET 0.58-0.96 mg/dL Creatinine High 1.17 LAB NA 136-144 mmol/L Sodium 139 LAB K 3.7-5.1 mmol/L Potassium 4.3 LAB CL 97-105 mmol/L Chloride 105 LAB CO2 22-30 mmol/L CO2 26 LAB AGAP mmol/L Anion Gap 8 LAB ALT 7-38 U/L ALT 13 LAB GFRAA eGFR- 55 Amer. LAB GFRNAA . eGFR-All Other Races 45 Result Comment: eGFR (Estimated GFR) Units of measure: mL/min/1.73 meters squared eGFR is derived from the reexpressed MDRD Study equation using the following parameters: serum creatinine, age, gender and race. The creatinine assay has been calibrated to be traceable to IDMS. An eGFR <60 mL/min/1.73m2 for >3 months is consistent with chronic kidney disease. Refer to KDOQI guidelines for clinical interpretation. In patients with unstable renal function, e.g. those with acute kidney injury, the eGFR may not accurately reflect actual GFR. TSH Collected: 02/25/2018 Status: F Source: [place] 10:52 AM [facility] REPOSITORY TYPE CODE TESTS RESULT OUT OF RANGE REFERENCE UNITS LAB TSH 0.400-5.500 uU/mL TSH 2.360 Performed By: #### TSH #### [facility] [address] [place], [place] [address] PROGRESS Observed: 01/28/2018 Status: COMPLETED Source: [place] 10:21 AM [facility] REPOSITORY HNO ID: [id number] Author: Isidro Estevez Service: (none) Author Type: Physician Type: Progress Notes Filed: 01/28/2018 10:29 AM Note Text: Diagnoses: 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 3) metastatic vaginal melanoma ? HPI: The patient is a 72 yo female with a PMH significant for DM2, asthma, VTE, and possible mild CKD as well has hysterectomy ~31 yrs ago who presented to [facility] ED 07/2013 with c/o dyspnea. CT chest significant for large b/l PE. One was a saddle embolus draped across the bifurcation of the main pulmonary artery and extending into both the right and left pulmonary artery segments per the CT report. Patient was transferred to [facility]. Not clear if she underwent thrombolysis. ? She recalls being discharged on Xarelto and was maintained on that drug until changed to Eliquis per her PCP. She was on that drug when she underwent work up for abdominal pain 03/2015. Underwent CT A/P 04/16/2015 that showed a large complex mass in the pelvis interpreted as arising from the uterus or an ovary and measuring 14.3 x 13.3 x 12.7 cm. It appeared to be well circumscribed not invading other structures. No evidence metastases elsewhere in abdomen. ? Patient was admitted to [facility] 04/19/2015 for acute left LE small DVT and possible cellulitis of the same leg. She was treated with vancomycin and anticoagulated with Lovenox and transferred to [facility] under the care of a gynecologic oncology surgeon, Dr. Sony Monteiro. ? Underwent surgery 05/03/2015. The final pathology demonstrated that within the RIGHT ovary there was a granulosa cell tumor. The greatest dimension of the ovary was 18 cm. The left fallopian tube was not involved. The omentum was not involved. left ovary and right fallopian tubes were not involved. Tumor was adherent to the left pelvic sidewall. No regional lymph node metastasis was observed. Lymph nodes were removed from the left pelvic, left periaortic areas. Focal angiolymphatic invasion was identified. 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 ? She was discharged to [facility]. Since the time of surgery, she had been having abdominal pain that is sharp and low in abdomen. It crescendos and is partially relieved with a BM. Returns shortly thereafter. Stools were loose and she had been having intermittent nausea with poor appetite. Was transferred to [facility] 05/09/2015 however for low Hgb of 6.1 g/dL. Received transfusion and admitted to [facility]. ? She received a blood transfusion. She was discharged back to the nursing facility and subsequent discharge home. She had been doing home physical therapy. She was making improvements. Initially seen here in plan was for adjuvant chemotherapy once the acute issues were resolved. ? She was admitted to [facility] with hypotension and acute kidney injury on June 17. Serum creatinine was 2.75 mg/dL. She was started on hydration and admitted to the intensive care unit after initiating broad-spectrum antibiotics. Blood cultures remained negative. Urine culture showed 10-50,000 colony-forming units of gram-positive cocci. Patient was transitioned to Levaquin and metronidazole. Creatinine normalized. She was discharged and is now being followed at the wound clinic. ? She underwent excisional debridement of the nonhealing ulcer in the anterior abdominal wall with complex secondary wound closure on 07/18/2015. It was explained to her that 3 layers of sutures are in place. The superficial layer is non-dissolvable whereas the underlying 2 layers are dissolvable. There is a plan for the non-dissolvable sutures to be removed on the through . ? Previous therapy: 1) Adjuvant carbo/paclitaxel x6 cycles completed 12/2015. ? She underwent pelvic exam under anesthesia on 12/04/2016. During the procedure she was observed to have a large approximately 7- 8 cm mass in the rectovaginal septum that infiltrated fairly downloaded to the hymenal ring. There was also infiltration along the right vaginal sidewall. Several core biopsies were obtained of the rectovaginal mass in the right vaginal sidewall. ? Areas revealed a poorly differentiated high-grade malignancy suggestive of malignant melanoma. Immunostains were positive for HMB-45, SOX-10 and [place]-1. CD3, CD20, CD45, CD138, inhibin, [place] 8 and S100 were negative. No BRAF mutation. ? Patient was admitted to [facility] for fever and malaise. She was found to have Escherichia coli sepsis. She was treated with broad-spectrum antibiotics. Urine appeared to be the source. She also received a 2 unit red blood cell transfusion. She underwent colonoscopy where in she was found to have extensive involvement of the rectum and was thereafter transferred to [facility]. On initial exam was determined that the tumor was significantly larger than it was on initial exam/biopsy. Therefore she underwent a palliative loop colostomy on 01/05. The patient had an unremarkable postoperative course and was discharged on Eliquis 5 mg twice a day and completed ciprofloxacin 14 days from her negative culture. ? 2) Palliative radiation on 01/26/2017. ? Current therapy: 1) Nivolumab. ? Presents for ongoing oncologic management. ? Interim history: Got steroid injection right eye. No longer seeing as if a film over the eye. Can read. Distance blurred. No GI side effects. Pelvic pain under good control. No gross hematuria. No vaginal bleeding. No other unusual bleeding or unexplained bruising. Was seen by Dr. Merino. No surgery advised. ? PMH, medications and allergies as below personally reviewed by me today. Any changes documented in appropriate section. ? ROS: Constitutional: Denies episodes of fever and night sweats. Neuro: Denies TANNER, vertigo, dizziness. HEENT: No recent change in voice, vision or hearing. Resp: Denies cough, wheeze and hemoptysis. Denies shortness of breath at rest. CVS: Denies exertional chest pain, PND, orthopnea. Chronic lower extremity edema stable. GI: Denies symptoms of stomatitis. Denies dysphagia and odynophagia. Denies reflux and nausea. : See above. Endo: Denies hot flashes. Denies polyuria and polydipsia. Denies heat and cold intolerance. Musculoskeletal: Denies bone, back, joint and muscular pain. Derm: Denies rash. Denies diffuse pruritis. Heme: See above. Psych: Normal mood. ? PHYSICAL EXAM: Well-appearing and in no acute distress. performance status 80% BP 137/86 Pulse 79 Temp (Src) 98.1 (Temporal Artery) Wt 210 lb (95.3kg) EYES: Sclerae are anicteric bilaterally. Mild conjunctival injection. Eyelashes have lightened in color. NECK: Supple. LYMPHATIC: There is no palpable cervical, supraclavicular adenopathy. RESPIRATORY: Inspiratory breath sounds are of normal intensity in all muir. No rales, wheezes or rhonchi. CARDIOVASCULAR: Rhythm is regular. Normal intensity S1/S2. There is no gallop or murmur. ABDOMEN: The abdomen is nondistended. Ostomy appears healthy. There is stable surrounding herniation. Extremities: Stable lower extremity swelling worse on the left. SKIN: Less swelling and edema bilaterally. Another flare cellulitis left leg. 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 ? 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 -She is tolerating OPDIVO treatment very well with significant response of the pelvic melanoma. She is having side effects including iritis and retinitis but the symptoms are stable to improving on local steroid therapy. Plan: -Okay for continued therapy. -Monitor CBC and CMP monthly with treatment -Follow up with wildlife biostation research ecologist as scheduled. -Repeat CT chest abdomen pelvis for restaging in March. -Declines flu shot--has egg allergy. ? 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 ? 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 -Presently no vaginal bleeding. Plan: -Continue Eliquis 5 mg twice a day. ? (R10.2) Pelvic pain Assessment/Plan: -Under good control. Plan: -Continue current regimen. (L03.119) Recurrent cellulitis and lymphedema lower extremities. Assessment/Plan: -She has chronic stasis dermatitis. -Chronic venous stasis and lymphedema Plan: -Monitoring. Isidro Estevez DO CNOVSP Observed: 01/28/2018 Status: COMPLETED Source: [place] 10:20 AM [facility] REPOSITORY Visit (SP) Office ([facility]) KANU AJ ([id number]) 1945 F Date Time Provider Department 01/28/18 10:20 AM ISIDRO ESTEVEZ During your visit today, we recorded the following information about you: Temperature Pulse Blood pressure Weight 98.1 degrees 79/minute 137/86 95.3 kg Isidro Estevez DO 01/28/2018 10:29 AM Signed Diagnoses: 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 3) metastatic vaginal melanoma ? HPI: The patient is a 72 yo female with a PMH significant for DM2, asthma, VTE, and possible mild CKD as well has hysterectomy ~31 yrs ago who presented to [facility] ED 07/2013 with c/o dyspnea. CT chest significant for large b/l PE. One was a saddle embolus draped across the bifurcation of the main pulmonary artery and extending into both the right and left pulmonary artery segments per the CT report. Patient was transferred to [facility]. Not clear if she underwent thrombolysis. ? She recalls being discharged on Xarelto and was maintained on that drug until changed to Eliquis per her PCP. She was on that drug when she underwent work up for abdominal pain 03/2015. Underwent CT A/P 04/16/2015 that showed a large complex mass in the pelvis interpreted as arising from the uterus or an ovary and measuring 14.3 x 13.3 x 12.7 cm. It appeared to be well circumscribed not invading other structures. No evidence metastases elsewhere in abdomen. ? Patient was admitted to [facility] 04/19/2015 for acute left LE small DVT and possible cellulitis of the same leg. She was treated with vancomycin and anticoagulated with Lovenox and transferred to [facility] under the care of a gynecologic oncology surgeon, Dr. Sony Monteiro. ? Underwent surgery 05/03/2015. The final pathology demonstrated that within the RIGHT ovary there was a granulosa cell tumor. The greatest dimension of the ovary was 18 cm. The left fallopian tube was not involved. The omentum was not involved. left ovary and right fallopian tubes were not involved. Tumor was adherent to the left pelvic sidewall. No regional lymph node metastasis was observed. Lymph nodes were removed from the left pelvic, left periaortic areas. Focal angiolymphatic invasion was identified. 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 ? She was discharged to [facility]. Since the time of surgery, she had been having abdominal pain that is sharp and low in abdomen. It crescendos and is partially relieved with a BM. Returns shortly thereafter. Stools were loose and she had been having intermittent nausea with poor appetite. Was transferred to [facility] 05/09/2015 however for low Hgb of 6.1 g/dL. Received transfusion and admitted to [facility]. ? She received a blood transfusion. She was discharged back to the nursing facility and subsequent discharge home. She had been doing home physical therapy. She was making improvements. Initially seen here in plan was for adjuvant chemotherapy once the acute issues were resolved. ? She was admitted to [facility] with hypotension and acute kidney injury on June 17. Serum creatinine was 2.75 mg/dL. She was started on hydration and admitted to the intensive care unit after initiating broad-spectrum antibiotics. Blood cultures remained negative. Urine culture showed 10-50,000 colony-forming units of gram-positive cocci. Patient was transitioned to Levaquin and metronidazole. Creatinine normalized. She was discharged and is now being followed at the wound clinic. ? She underwent excisional debridement of the nonhealing ulcer in the anterior abdominal wall with complex secondary wound closure on 07/18/2015. It was explained to her that 3 layers of sutures are in place. The superficial layer is non-dissolvable whereas the underlying 2 layers are dissolvable. There is a plan for the non-dissolvable sutures to be removed on the through . ? Previous therapy: 1) Adjuvant carbo/paclitaxel x6 cycles completed 12/2015. ? She underwent pelvic exam under anesthesia on 12/04/2016. During the procedure she was observed to have a large approximately 7-8 cm mass in the rectovaginal septum that infiltrated fairly downloaded to the hymenal ring. There was also infiltration along the right vaginal sidewall. Several core biopsies were obtained of the rectovaginal mass in the right vaginal sidewall. ? Areas revealed a poorly differentiated high-grade malignancy suggestive of malignant melanoma. Immunostains were positive for HMB-45, SOX-10 and [place]-1. CD3, CD20, CD45, CD138, inhibin, [place] 8 and S100 were negative. No BRAF mutation. ? Patient was admitted to [facility] for fever and malaise. She was found to have Escherichia coli sepsis. She was treated with broad-spectrum antibiotics. Urine appeared to be the source. She also received a 2 unit red blood cell transfusion. She underwent colonoscopy where in she was found to have extensive involvement of the rectum and was thereafter transferred to [facility]. On initial exam was determined that the tumor was significantly larger than it was on initial exam/biopsy. Therefore she underwent a palliative loop colostomy on 01/05. The patient had an unremarkable postoperative course and was discharged on Eliquis 5 mg twice a day and completed ciprofloxacin 14 days from her negative culture. ? 2) Palliative radiation on 01/26/2017. ? Current therapy: 1) Nivolumab. ? Presents for ongoing oncologic management. ? Interim history: Got steroid injection right eye. No longer seeing as if a film over the eye. Can read. Distance blurred. No GI side effects. Pelvic pain under good control. No gross hematuria. No vaginal bleeding. No other unusual bleeding or unexplained bruising. Was seen by Dr. Merino. No surgery advised. ? PMH, medications and allergies as below personally reviewed by me today. Any changes documented in appropriate section. ? ROS: Constitutional: Denies episodes of fever and night sweats. Neuro: Denies TANNER, vertigo, dizziness. HEENT: No recent change in voice, vision or hearing. Resp: Denies cough, wheeze and hemoptysis. Denies shortness of breath at rest. CVS: Denies exertional chest pain, PND, orthopnea. Chronic lower extremity edema stable. GI: Denies symptoms of stomatitis. Denies dysphagia and odynophagia. Denies reflux and nausea. : See above. Endo: Denies hot flashes. Denies polyuria and polydipsia. Denies heat and cold intolerance. Musculoskeletal: Denies bone, back, joint and muscular pain. Derm: Denies rash. Denies diffuse pruritis. Heme: See above. Psych: Normal mood. ? PHYSICAL EXAM: Well-appearing and in no acute distress. performance status 80% BP 137/86 Pulse 79 Temp (Src) 98.1 (Temporal Artery) Wt 210 lb (95.3kg) EYES: Sclerae are anicteric bilaterally. Mild conjunctival injection. Eyelashes have lightened in color. NECK: Supple. LYMPHATIC: There is no palpable cervical, supraclavicular adenopathy. RESPIRATORY: Inspiratory breath sounds are of normal intensity in all muir. No rales, wheezes or rhonchi. CARDIOVASCULAR: Rhythm is regular. Normal intensity S1/S2. There is no gallop or murmur. ABDOMEN: The abdomen is nondistended. Ostomy appears healthy. There is stable surrounding herniation. Extremities: Stable lower extremity swelling worse on the left. SKIN: Less swelling and edema bilaterally. Another flare cellulitis left leg. 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 ? 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 -She is tolerating OPDIVO treatment very well with significant response of the pelvic melanoma. She is having side effects including iritis and retinitis but the symptoms are stable to improving on local steroid therapy. Plan: -Okay for continued therapy. -Monitor CBC and CMP monthly with treatment -Follow up with wildlife biostation research ecologist as scheduled. -Repeat CT chest abdomen pelvis for restaging in March. -Declines flu shot--has egg allergy. ? 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 ? 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 -Presently no vaginal bleeding. Plan: -Continue Eliquis 5 mg twice a day. ? (R10.2) Pelvic pain Assessment/Plan: -Under good control. Plan: -Continue current regimen. (L03.119) Recurrent cellulitis and lymphedema lower extremities. Assessment/Plan: -She has chronic stasis dermatitis. -Chronic venous stasis and lymphedema Plan: -Monitoring. Isidro Estevez DO Referring Provider: ISIDRO ESTEVEZ [[id number]] Allergies As of Date: 01/28/2018 Noted Allergy Reaction ASA (ASPIRIN) 05/09/2015 5 - Intolerance Comments: nose bleeds CLINDAMYCIN 05/09/2015 14 - Other: See Comments Comments: jerking, talking funny DEMEROL (MEPERIDINE (PF)) 05/09/2015 8 - GI Upset IODINE 11/23/2016 9 - Itching MORPHINE 05/09/2015 8 - GI Upset VALIUM (DIAZEPAM) 05/09/2015 8 - GI Upset Date Reviewed: 01/28/2018 Reviewed by: Isidro Estevez - Fully Assessed Reason for Visit: Established Patient [175] Primary Visit Diagnosis:Chronic deep vein thrombosis (DVT) of distal vein of left lower extremity (HCC) [I82.5Z2] Other Visit Diagnoses:Vaginal melanoma (HCC) [C52] 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 Earliest Fill Date: 01/28/18Disp: 180 tabletRfl: 0 Follow-up and Disposition History Recorded Prescriptions as of 01/28/2018 Sig: OXYCODONE 5 MG TABLET Take 1-2 tablets by mouth morena* OXYCODONE 15 MG TABLET Take 15 mg by mouth every 12 * DIPHENHYDRAMINE 50 MG CAPSULE Take 1 capsule by mouth as di* CHOLECALCIFEROL (VITAMIN D3) * Take 2,000 Units by mouth onc* APIXABAN 5 MG TABLET 1 tablet twice daily. Take 1/* Patient taking differently: Take 2.5 mg by mouth twice da* ONDANSETRON HCL 8 MG TABLET Take 1 tablet by mouth every * PHENERGAN ORAL Take by mouth as needed. 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 Dehydration [E86.0] INVALID FOR* CKD (chronic kidney disease) stage 3, GFR 30-59*INVALID FOR* Lymphedema [I89.0] INVALID FOR* Cellulitis of left lower extremity [L03.116] INVALID FOR* Encounter Status:Closed by ISIDRO ESTEVEZ DO on 01/28/18 COMP METABOLIC PANEL Collected: 01/28/2018 Status: F Source: [place] 10:17 AM [facility] REPOSITORY TYPE CODE TESTS RESULT OUT OF REFERENCE UNITS RANGE LAB TP 6.3-8.0 g/dL Protein, Total 6.6 LAB ALB 3.9-4.9 g/dL Low Albumin 3.8 LAB CA 8.5-10.2 mg/dL Calcium, Total 9.4 LAB TBIL 0.2-1.3 mg/dL Bilirubin, Total 0.7 LAB ALKP 34-123 U/L Alkaline Phosphatase 93 LAB AST 13-35 U/L AST 19 LAB GLU 74-99 mg/dL Glucose High 138 Result Comment: The [place] [employer] (ADA) provides guidance for cutoff values for fasting glucose and random glucose. The ADA defines fasting as no caloric intake for at least 8 hours. Fas ting plasma glucose results between 100 to 125 mg/dL indicate increased risk for diabetes (prediabetes). Fasting plasma glucose results greater than or equal to 126 mg/dL meet the criteria for diagnosis of diabetes. In the absence of unequivocal hyperglycemia, results should be confirmed by repeat testing. In a patient with classic symptoms of hyperglycemia or hyperglycemic crisis, random plasma glucose results greater than or equal to 200 mg/dL meet the criteria for diagnosis of diabetes. Reference: Standards of Medical Care in Diabetes 2016, [place] [employer]. Diabetes Care. 2016.39(Suppl 1). LAB BUN 7-21 mg/dL BUN High 31 LAB CRET 0.58-0.96 mg/dL Creatinine High 1.26 LAB NA 136-144 mmol/L Sodium 140 LAB K 3.7-5.1 mmol/L Potassium 4.3 LAB CL 97-105 mmol/L Chloride 99 LAB CO2 22-30 mmol/L CO2 27 LAB AGAP 9-18 mmol/L Anion Gap 14 LAB ALT 7-38 U/L ALT 18 LAB GFRAA eGFR- Amer. 51 LAB GFRNAA . eGFR-All Other Races 42 Result Comment: eGFR (Estimated GFR) Units of measure: mL/min/1.73 meters squared eGFR is derived from the reexpressed MDRD Study equation using the following parameters: serum creatinine, age, gender and race. The creatinine assay has been calibrated to be traceable to IDMS. An eGFR <60 mL/min/1.73m2 for >3 months is consistent with chronic kidney disease. Refer to KDOQI guidelines for clinical interpretation. In patients with unstable renal function, e.g. those with acute kidney injury, the eGFR may not accurately reflect actual GFR. Performed By: #### CMP #### [facility] [address] [place], [place] [address] [place] ABS GR + CBC Collected: 01/28/2018 Status: F Source: [place] 9:57 AM [facility] REPOSITORY TYPE CODE TESTS RESULT OUT OF REFERENCE UNITS RANGE LAB WWBC 3.70-11.00 k/uL [place] WBC 4.87 LAB WRBC 3.90-5.20 m/uL [place] RBC 4.19 LAB WHGB 11.5-15.5 g/dL [place] Hemoglobin 12.5 LAB WHCT 36.0-46.0 % [place] Hematocrit 39.6 LAB WMCV 80.0-100.0 fL [place] MCV 94.5 LAB WMCH 26.0-34.0 pg [place] MCH 29.8 LAB WMCHC 30.5-36.0 g/dL [place] MCHC 31.6 LAB WRDW 11.5-15.0 % [place] RDW 13.5 LAB WPLT 150-400 k/uL Low [place] Platelet Cnt 144 LAB WMPV 9.0-12.7 fL [place] MPV 9.5 Result Comment: Test performed at: [facility], [address] [place] [address]. 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 The patient has a history of iridocyclitis and edema related to her opdivo infusions. She has a history of treatment with subtenon's kenalog and has responded well. On examination today, the left eye fails to demonstrate cystoid macular edema. The right eye does show cystoid macular edema on OCT testing performed today. I discussed with the patient that continued treatment with STK would be my recommendation given her favorable response to this low risk therapy. The patient agrees and will return to care with Dr. Mantilla for treatment. Cataracts are present in both eyes for which I recommend observation at this time. The documentation recorded by the scribe accurately reflects the service I personally performed and the decisions made by me. I have confirmed and edited as necessary the relevant ophthalmic history, ROS, and the neuro exam findings as obtained by others. I have seen and examined Kanu A Aj. I have discussed the case and the management of this patient's care with the [employer], if applicable. I also have reviewed and agree with the assessment and plan as stated above and agree with all of its relevant components. Manuel Still MD PROGRESS Observed: 01/04/2018 Status: COMPLETED Source: [place] 6:05 PM [facility] REPOSITORY HNO ID: [id number] Author: Leila Merino Service: (none) Author Type: Physician Type: Progress Notes Filed: 01/04/2018 6:30 PM Note Text: HISTORY AND PHYSICAL Kanu Aj 1945 REFERRING PHYSICIAN: Isidro Estevez DO CHIEF COMPLAINT: ostomy options HPI: The patient is a 72 year old female referred for concerns with a parastomal hernia and abdominal discomfort/pain. The patient has a complicated past ,medical and surgical history. The patient had a history of vaginal melanoma. The patient was referred to me in November 2016 with complaints of lower abdominal pain, blood and clots per rectum along with vaginal bleeding. The patient had a history of a left (?) ovarian tumor which at the time extended to the lateral abdominal/pelvic wall. She underwent resection , May 03, 2015. It returned as a granulosa cell tumor . Negative lymph nodes.-T2 N0 She was receiving chemotherapy for that abnormality. She also apparently had a nonhealing abdominal wall ulcer for which on July 18 2015. She underwent excision and multilayer repair for this defect. I do not have records of these procedures. She also had a distant history of a DVT and pulmonary saddle embolus for which she be maintained on anticoagulation at the time Eliquis. She has significant left sided lower extremity lymphedema - and has been admitted for skin breakdown. Lower extremity cellulitis on multiple occasions. I performed colonoscopy on December 28, 2016. A posterior rectal mass was identified and this was biopsied. This returned as melanoma. The patient was transferred to [facility]. The patient was offered pelvic exenteration, which she declined. A loop colostomy was performed, I understand by Dr. Reji Sunshine. She has not developed a parastomal hernia. She was referred to Dr. Cabrera at [facility] who recommended against parastomal hernia repair and the fact that she has not any trouble instructions. She does note discomfort and issues having the pouch stick. Follow-up CT scan seems to indicate shrinkage of the tumor. This is somewhat challenged by a right hip replacement, which partially obscures the pelvis. Review of MRI from earlier in the year still seems to demonstrate a significant bulky tumor in the pelvis. The patient was referred to me for question of whether he would be appropriate for colostomy takedown and for possible consideration of surgical repair of her parastomal hernia. The patient is being seen by me today at the request of Dr. Estevez for my opinion and advice regarding stomal hernia. Complications/issues. 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 (chemo)- currently PAST SURGICAL HISTORY Procedure Laterality Date - CHOLECYSTECTOMY HX ~2002 - COLONOSCOPY W/BX 12/28/2016 low rectal mass - EXPLORATORY LAPAROTOMY, CELIOTOMY-SP 2016 obstructing pelvic mass, unresectable, diverting loop colostomy - EXPLORATORY OF ABDOMEN 05/03/2015 exploratory laparotomy and bilateral salpingo-oophorectomy - HIP SURGERY HX Right ~2005 Hip replacement - HYSTERECTOMY HX - KNEE SCOPE,DIAGNOSTIC Right Arthroscopy, knee - REVISE MEDIAN N/CARPAL TUNNEL SURG Bilateral carpal tunnel decomp - SHOULDER SURGERY HX Left Shoulder - TOTAL KNEE REPLACEMENT Left ~2005 Knee replacement Current Outpatient Prescriptions: oxyCODONE IR (ROXICODONE) 5 mg immediate release tablet Take 1-2 tablets by mouth every 4 hours as needed for up to 7 days.Earliest Fill Date: 01/03/18 oxyCODONE (ROXICODONE) 15 mg immediate release tablet Take 15 mg by mouth every 12 hours for 30 days.Earliest Fill Date: 01/03/18 doxycycline monohydrate 100 mg tablet Take 1 tablet by mouth twice daily for 21 days. cephALEXin (KEFLEX) 500 mg capsule Take 500 mg by mouth three times daily. diphenhydrAMINE (BENADRYL) 50 mg capsule Take 1 capsule by mouth as directed for 1 dose. one (1) hour prior to exam. cholecalciferol (VITAMIN D-3) 2,000 unit tablet Take 2,000 Units by mouth once daily. apixaban (ELIQUIS) 5 mg tab tab(s) 1 tablet twice daily. Take 1/2 tablet by mouth twice daily. (Patient taking differently: 5 mg twice daily. ) ondansetron (ZOFRAN, HYDROCHLORIDE,) 8 mg tablet Take 1 tablet by mouth every 8 hours as needed. PROMETHAZINE HCL (PHENERGAN ORAL) Take by mouth as needed. furosemide (LASIX) 40 mg tablet Take 40 mg by mouth twice daily. Ascorbic Acid (VITAMIN C) 1,000 mg tablet Take 1,000 mg by mouth once daily. metFORMIN (GLUCOPHAGE) 500 mg tablet Take 1/2 tablet by mouth twice daily. Cyanocobalamin (VITAMIN B-12) 250 mcg tab Take 1 tablet by mouth once daily. cyclobenzaprine (FLEXERIL) 10 mg tablet Take 10 mg by mouth daily at bedtime. therapeutic multivitamin w/ iron (THERAGRAN-M) 9 mg iron-400 mcg tablet Take 1 tablet by mouth once daily. cetirizine (ZYRTEC) 10 mg tablet Take 10 mg by mouth once daily. acetaminophen (TYLENOL) 325 mg tablet Take 325 mg by mouth every 6 hours as needed for Pain or Fever. albuterol HFA (PROVENTIL HFA, VENTOLIN HFA) 90 mcg/actuation inhaler Inhale 2 Puffs as instructed four times daily as needed for Wheezing/Shortness of Breath. No current facility-administered medications for this visit. ALLERGIES: Asa [Aspirin]; Clindamycin; Demerol [Meperidine (Pf)]; Iodine; Morphine; Valium [Diazepam] PERSONAL HISTORY: Social History Marital status: Spouse name: Years of education: Number of children: Social History Main Topics Smoking status: Never Smoker Smokeless tobacco: Never Used Alcohol use: No Drug use: No FAMILY HISTORY: FAMILY HISTORY Problem Relation Age of Onset - Kidney Disease Father at age 80 - other (Kidney Cancer) Father - Diabetes Brother - Hypertension Brother - Heart Brother REVIEW OF SYMPTOMS: The review of systems data was entered by the nurse and reviewed by mi Nursing Notes: Diana Richardcarmella SHARIF 01/04/2018 3:49 PM Signed REVIEW OF SYSTEMS: General: The patient denies fatigue, denies weight loss, NOTES weight gain, NOTES feeling hot, and denies feelings of cold. Eyes: The patient denies glaucoma, denies eye injury/surgery, does not wear glasses or contacts. Ear/Nose/Throat: The patient NOTES allergies, NOTES hayfever, denies ear infections, and denies bloody noses. Cardiovascular: The patient denies chest pain, denies heart disease, denies high blood pressure,denies cardiac stent, denies prior heart attack, denies irregular heart beat, denies high cholesterol, denies poor circulation, denies heart failure, other cardiac issues, denies claudication, denies cold feet, denies peripheral arterial stent. Respiratory: The patient denies tuberculosis, denies pneumonia, denies frequent cough, NOTES pulmonary embolism, NOTES shortness of breath, and denies coughing up blood. Gastrointestinal: The patient denies difficulty swallowing, NOTES acid reflux, NOTES ulcers, denies vomiting, denies jaundice/hepatitis, denies gallbladder problems, denies black or tarry stools, denies hemorrhoids, NOTES bleeding from rectum, denies diverticulitis, denies constipation, denies diarrhea, denies loss of stool control, and NOTES hernias. Kidney/Bladder: The patient denies kidney stones, denies urine infections, and denies bloody urine. Skin: The patient denies a history of skin cancer, denies bleeding/changing moles, and denies a history of skin rash. Neurologic: The patient denies a history of epilepsy/convulsions, NOTES headaches, denies head/spinal injuries, and denies stroke/TIA. Psychiatric: The patient denies psychiatric medications, denies depression, and denies voices, denies substance abuse. Endocrine: The patient denies thyroid disorders, denies diabetes, and denies hormonal problems. Hematologic: The patient denies a history of bruising, denies bleeding, and NOTES anemia, NOTES blood clots. Infections: The patient NOTES a history of measles and mumps, NOTES rheumatic fever, and denies sexually transmitted diseases. Musculoskeletal: The patient denies back pain/injury, NOTES back problems, denies sciatica, denies knee/foot trouble, denies arthritis, or denies gout. ? ? When was patient's last Mammogram screening? unknown ? Last Colonoscopy: 02/2017 ? PHYSICAL EXAMINATION: General: The patient is 72 year old female, well nourished, well hydrated in no acute distress. The patient is oriented to time, place, and person. VITALS: Weight 94.3 kg (208 lb). Body mass index is 39.3 kg/m?. HEENT: Normal cephalic, ataumatic, pupils are equally round, sclera are anicteric, mucous membranes are moist, oropharynx is clear. Neck has no masses, asymmetry or lymphadenopathy. Thyroid is unremarkable. Respiratory: Clear to auscultation and percussion. Normal respiratory excursion and pattern. Cardiac: Examination is regular rate and rhythm. Abdominal exam: Soft, nontender, with no palpable masses. No hepatosplenomegaly. A large parastomal hernia with a colostomy bag in place with a loop transverse stomal hernia. Multiple abdominal incisions. Having the patient laid on the exam table with gentle pressure. The herniated bowel contents can be completely reduced. Rectal exam: exam deferred Extremities: no clubbing, cyanosis or edema. No adenopathy. Other: LABORATORY VALUES: As Noted RADIOLOGIC STUDIES: As Noted Assessment IMPRESSION: Vaginal melanoma with pelvic mass-questionable agree of response , now parastomal hernia PLAN: I plan to perform flexible sigmoidoscopy with sedation and probable biopsy to assess whether there still is tumor present in the low anterior rectum. We discussed the risks and benefits of the planned endoscopy. I have informed the patient that complications can occur including failure to complete the endoscopy and perforation. The patient had the opportunity to ask questions concerning the planned endoscopy. My staff has also explained the procedure to the patient in understandable terms and has given the patient printed material concerning the procedure. The patient freely consents to surgery. Nonetheless, I discussed with the patient, I doubt there will be completely response in the area. Even if the area appeared to be melanoma free, I would be concerned with risk of recurrence of pelvic sepsis and given the fact that she had pelvic radiation and has had multiple procedures whether she would have any degree of fecal continence. In short, we agreed that colostomy takedown would probably be very risky endeavor with low chance for long-term success. With the fact that I could completely reduce the parastomal hernia, we agreed to try an abdominal wall binder to see if this improved her symptoms of discomfort and made her activities of daily living, easier. If her symptoms continued. She still had abdominal discomfort and this still impacted her quality of life, I discussed we could consider revision of her stoma. However, given her previous multiple abdominal procedures. The size of the defect and the length of what would be a very long White's pouch, I discussed with the patient this could be a very challenging operation in of itself. The patient recalled that Dr. Cabrera felt revision surgery be a 4-5 hour endeavor. We discussed that removal and replacement of the stoma with likely an and transverse colostomy and a very long White's pouch with repair of the defect would be challenging. If the patient had a wound infection or other complication, this could delay or significantly impair her ongoing palliative treatment. This could also significantly shorten her life duration if she got a significant infection or complication. Normally I would not undertake such an operation locally and would refer to colorectal. I will reach out to Dr. Krishna Drew to see if he would ever consider such a procedure in this type patient, if the binder does not seem to improve her symptoms. Diagnoses: (K43.5) Parastomal hernia without obstruction or gangrene (primary encounter diagnosis) My findings have been communicated to Dr. Estevez via shared medical record. This note will be forwarded to Dr. Chente Daigle MD. Return to Clinic: The patient is instructed to follow-up with me after the testing has been completed. Leila Merino MD CNOV Observed: 01/04/2018 Status: COMPLETED Source: [place] 3:20 PM [facility] REPOSITORY Office Visit (GENSWS) KANU AJ ([id number]) 1945 F Date Time Provider Department 01/04/18 3:20 PM LEILA MERINO During your visit today, we recorded the following information about you: Weight 94.3 kg Diana Devine INTERNET SYSTEMS ADMINISTRATOR 01/04/2018 3:49 PM Signed REVIEW OF SYSTEMS: General: The patient denies fatigue, denies weight loss, NOTES weight gain, NOTES feeling hot, and denies feelings of cold. Eyes: The patient denies glaucoma, denies eye injury/surgery, does not wear glasses or contacts. Ear/Nose/Throat: The patient NOTES allergies, NOTES hayfever, denies ear infections, and denies bloody noses. Cardiovascular: The patient denies chest pain, denies heart disease, denies high blood pressure,denies cardiac stent, denies prior heart attack, denies irregular heart beat, denies high cholesterol, denies poor circulation, denies heart failure, other cardiac issues, denies claudication, denies cold feet, denies peripheral arterial stent. Respiratory: The patient denies tuberculosis, denies pneumonia, denies frequent cough, NOTES pulmonary embolism, NOTES shortness of breath, and denies coughing up blood. Gastrointestinal: The patient denies difficulty swallowing, NOTES acid reflux, NOTES ulcers, denies vomiting, denies jaundice/hepatitis, denies gallbladder problems, denies black or tarry stools, denies hemorrhoids, NOTES bleeding from rectum, denies diverticulitis, denies constipation, denies diarrhea, denies loss of stool control, and NOTES hernias. Kidney/Bladder: The patient denies kidney stones, denies urine infections, and denies bloody urine. Skin: The patient denies a history of skin cancer, denies bleeding/changing moles, and denies a history of skin rash. Neurologic: The patient denies a history of epilepsy/convulsions, NOTES headaches, denies head/spinal injuries, and denies stroke/TIA. Psychiatric: The patient denies psychiatric medications, denies depression, and denies voices, denies substance abuse. Endocrine: The patient denies thyroid disorders, denies diabetes, and denies hormonal problems. Hematologic: The patient denies a history of bruising, denies bleeding, and NOTES anemia, NOTES blood clots. Infections: The patient NOTES a history of measles and mumps, NOTES rheumatic fever, and denies sexually transmitted diseases. Musculoskeletal: The patient denies back pain/injury, NOTES back problems, denies sciatica, denies knee/foot trouble, denies arthritis, or denies gout. ? ? When was patient's last Mammogram screening? unknown ? Last Colonoscopy: 02/2017 ? Leila Merino MD 01/04/2018 6:30 PM Signed HISTORY AND PHYSICAL Kanu Jenkins Jean Marie 1945 REFERRING PHYSICIAN: Isidro Estevez DO CHIEF COMPLAINT: ostomy options HPI: The patient is a 72 year old female referred for concerns with a parastomal hernia and abdominal discomfort/pain. The patient has a complicated past ,medical and surgical history. The patient had a history of vaginal melanoma. The patient was referred to me in November 2016 with complaints of lower abdominal pain, blood and clots per rectum along with vaginal bleeding. The patient had a history of a left (?) ovarian tumor which at the time extended to the lateral abdominal/pelvic wall. She underwent resection , May 03, 2015. It returned as a granulosa cell tumor . Negative lymph nodes.-T2 N0 She was receiving chemotherapy for that abnormality. She also apparently had a nonhealing abdominal wall ulcer for which on July 18 2015. She underwent excision and multilayer repair for this defect. I do not have records of these procedures. She also had a distant history of a DVT and pulmonary saddle embolus for which she be maintained on anticoagulation at the time Eliquis. She has significant left sided lower extremity lymphedema - and has been admitted for skin breakdown. Lower extremity cellulitis on multiple occasions. I performed colonoscopy on December 28, 2016. A posterior rectal mass was identified and this was biopsied. This returned as melanoma. The patient was transferred to [facility]. The patient was offered pelvic exenteration, which she declined. A loop colostomy was performed, I understand by Dr. Reji Sunshine. She has not developed a parastomal hernia. She was referred to Dr. Cabrera at [facility] who recommended against parastomal hernia repair and the fact that she has not any trouble instructions. She does note discomfort and issues having the pouch stick. Follow-up CT scan seems to indicate shrinkage of the tumor. This is somewhat challenged by a right hip replacement, which partially obscures the pelvis. Review of MRI from earlier in the year still seems to demonstrate a significant bulky tumor in the pelvis. The patient was referred to me for question of whether he would be appropriate for colostomy takedown and for possible consideration of surgical repair of her parastomal hernia. The patient is being seen by me today at the request of Dr. Estevez for my opinion and advice regarding stomal hernia. Complications/issues. 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 (chemo)- currently PAST SURGICAL HISTORY Procedure Laterality Date - CHOLECYSTECTOMY HX ~2002 - COLONOSCOPY W/BX 12/28/2016 low rectal mass - EXPLORATORY LAPAROTOMY, CELIOTOMY-2016 obstructing pelvic mass, unresectable, diverting loop colostomy - EXPLORATORY OF ABDOMEN 05/03/2015 exploratory laparotomy and bilateral salpingo-oophorectomy - HIP SURGERY HX Right ~2005 Hip replacement - HYSTERECTOMY HX - KNEE SCOPE,DIAGNOSTIC Right Arthroscopy, knee - REVISE MEDIAN N/CARPAL TUNNEL SURG Bilateral carpal tunnel decomp - SHOULDER SURGERY HX Left Shoulder - TOTAL KNEE REPLACEMENT Left ~2005 Knee replacement Current Outpatient Prescriptions: oxyCODONE IR (ROXICODONE) 5 mg immediate release tablet Take 1-2 tablets by mouth every 4 hours as needed for up to 7 days.Earliest Fill Date: 01/03/18 oxyCODONE (ROXICODONE) 15 mg immediate release tablet Take 15 mg by mouth every 12 hours for 30 days.Earliest Fill Date: 01/03/18 doxycycline monohydrate 100 mg tablet Take 1 tablet by mouth twice daily for 21 days. cephALEXin (KEFLEX) 500 mg capsule Take 500 mg by mouth three times daily. diphenhydrAMINE (BENADRYL) 50 mg capsule Take 1 capsule by mouth as directed for 1 dose. one (1) hour prior to exam. cholecalciferol (VITAMIN D-3) 2,000 unit tablet Take 2,000 Units by mouth once daily. apixaban (ELIQUIS) 5 mg tab tab(s) 1 tablet twice daily. Take 1/2 tablet by mouth twice daily. (Patient taking differently: 5 mg twice daily. ) ondansetron (ZOFRAN, HYDROCHLORIDE,) 8 mg tablet Take 1 tablet by mouth every 8 hours as needed. PROMETHAZINE HCL (PHENERGAN ORAL) Take by mouth as needed. furosemide (LASIX) 40 mg tablet Take 40 mg by mouth twice daily. Ascorbic Acid (VITAMIN C) 1,000 mg tablet Take 1,000 mg by mouth once daily. metFORMIN (GLUCOPHAGE) 500 mg tablet Take 1/2 tablet by mouth twice daily. Cyanocobalamin (VITAMIN B-12) 250 mcg tab Take 1 tablet by mouth once daily. cyclobenzaprine (FLEXERIL) 10 mg tablet Take 10 mg by mouth daily at bedtime. therapeutic multivitamin w/ iron (THERAGRAN-M) 9 mg iron-400 mcg tablet Take 1 tablet by mouth once daily. cetirizine (ZYRTEC) 10 mg tablet Take 10 mg by mouth once daily. acetaminophen (TYLENOL) 325 mg tablet Take 325 mg by mouth every 6 hours as needed for Pain or Fever. albuterol HFA (PROVENTIL HFA, VENTOLIN HFA) 90 mcg/actuation inhaler Inhale 2 Puffs as instructed four times daily as needed for Wheezing/Shortness of Breath. No current facility-administered medications for this visit. ALLERGIES: Asa [Aspirin]; Clindamycin; Demerol [Meperidine (Pf)]; Iodine; Morphine; Valium [Diazepam] PERSONAL HISTORY: Social History Marital status: Spouse name: Years of education: Number of children: Social History Main Topics Smoking status: Never Smoker Smokeless tobacco: Never Used Alcohol use: No Drug use: No FAMILY HISTORY: FAMILY HISTORY Problem Relation Age of Onset - Kidney Disease Father at age 80 - other (Kidney Cancer) Father - Diabetes Brother - Hypertension Brother - Heart Brother REVIEW OF SYMPTOMS: The review of systems data was entered by the nurse and reviewed by mi Nursing Notes: Diana Devine LPN 01/04/2018 3:49 PM Signed REVIEW OF SYSTEMS: General: The patient denies fatigue, denies weight loss, NOTES weight gain, NOTES feeling hot, and denies feelings of cold. Eyes: The patient denies glaucoma, denies eye injury/surgery, does not wear glasses or contacts. Ear/Nose/Throat: The patient NOTES allergies, NOTES hayfever, denies ear infections, and denies bloody noses. Cardiovascular: The patient denies chest pain, denies heart disease, denies high blood pressure,denies cardiac stent, denies prior heart attack, denies irregular heart beat, denies high cholesterol, denies poor circulation, denies heart failure, other cardiac issues, denies claudication, denies cold feet, denies peripheral arterial stent. Respiratory: The patient denies tuberculosis, denies pneumonia, denies frequent cough, NOTES pulmonary embolism, NOTES shortness of breath, and denies coughing up blood. Gastrointestinal: The patient denies difficulty swallowing, NOTES acid reflux, NOTES ulcers, denies vomiting, denies jaundice/hepatitis, denies gallbladder problems, denies black or tarry stools, denies hemorrhoids, NOTES bleeding from rectum, denies diverticulitis, denies constipation, denies diarrhea, denies loss of stool control, and NOTES hernias. Kidney/Bladder: The patient denies kidney stones, denies urine infections, and denies bloody urine. Skin: The patient denies a history of skin cancer, denies bleeding/changing moles, and denies a history of skin rash. Neurologic: The patient denies a history of epilepsy/convulsions, NOTES headaches, denies head/spinal injuries, and denies stroke/TIA. Psychiatric: The patient denies psychiatric medications, denies depression, and denies voices, denies substance abuse. Endocrine: The patient denies thyroid disorders, denies diabetes, and denies hormonal problems. Hematologic: The patient denies a history of bruising, denies bleeding, and NOTES anemia, NOTES blood clots. Infections: The patient NOTES a history of measles and mumps, NOTES rheumatic fever, and denies sexually transmitted diseases. Musculoskeletal: The patient denies back pain/injury, NOTES back problems, denies sciatica, denies knee/foot trouble, denies arthritis, or denies gout. ? ? When was patient's last Mammogram screening? unknown ? Last Colonoscopy: 02/2017 ? PHYSICAL EXAMINATION: General: The patient is 72 year old female, well nourished, well hydrated in no acute distress. The patient is oriented to time, place, and person. VITALS: Weight 94.3 kg (208 lb). Body mass index is 39.3 kg/m?. HEENT: Normal cephalic, ataumatic, pupils are equally round, sclera are anicteric, mucous membranes are moist, oropharynx is clear. Neck has no masses, asymmetry or lymphadenopathy. Thyroid is unremarkable. Respiratory: Clear to auscultation and percussion. Normal respiratory excursion and pattern. Cardiac: Examination is regular rate and rhythm. Abdominal exam: Soft, nontender, with no palpable masses. No hepatosplenomegaly. A large parastomal hernia with a colostomy bag in place with a loop transverse stomal hernia. Multiple abdominal incisions. Having the patient laid on the exam table with gentle pressure. The herniated bowel contents can be completely reduced. Rectal exam: exam deferred Extremities: no clubbing, cyanosis or edema. No adenopathy. Other: LABORATORY VALUES: As Noted RADIOLOGIC STUDIES: As Noted Assessment IMPRESSION: Vaginal melanoma with pelvic mass-questionable agree of response , now parastomal hernia PLAN: I plan to perform flexible sigmoidoscopy with sedation and probable biopsy to assess whether there still is tumor present in the low anterior rectum. We discussed the risks and benefits of the planned endoscopy. I have informed the patient that complications can occur including failure to complete the endoscopy and perforation. The patient had the opportunity to ask questions concerning the planned endoscopy. My staff has also explained the procedure to the patient in understandable terms and has given the patient printed material concerning the procedure. The patient freely consents to surgery. Nonetheless, I discussed with the patient, I doubt there will be completely response in the area. Even if the area appeared to be melanoma free, I would be concerned with risk of recurrence of pelvic sepsis and given the fact that she had pelvic radiation and has had multiple procedures whether she would have any degree of fecal continence. In short, we agreed that colostomy takedown would probably be very risky endeavor with low chance for long-term success. With the fact that I could completely reduce the parastomal hernia, we agreed to try an abdominal wall binder to see if this improved her symptoms of discomfort and made her activities of daily living, easier. If her symptoms continued. She still had abdominal discomfort and this still impacted her quality of life, I discussed we could consider revision of her stoma. However, given her previous multiple abdominal procedures. The size of the defect and the length of what would be a very long White's pouch, I discussed with the patient this could be a very challenging operation in of itself. The patient recalled that Dr. Cabrera felt revision surgery be a 4-5 hour endeavor. We discussed that removal and replacement of the stoma with likely an and transverse colostomy and a very long White's pouch with repair of the defect would be challenging. If the patient had a wound infection or other complication, this could delay or significantly impair her ongoing palliative treatment. This could also significantly shorten her life duration if she got a significant infection or complication. Normally I would not undertake such an operation locally and would refer to colorectal. I will reach out to Dr. Krishna Drew to see if he would ever consider such a procedure in this type patient, if the binder does not seem to improve her symptoms. Diagnoses: (K43.5) Parastomal hernia without obstruction or gangrene (primary encounter diagnosis) My findings have been communicated to Dr. Estevez via shared medical record. This note will be forwarded to Dr. Chente Daigle MD. Return to Clinic: The patient is instructed to follow-up with me after the testing has been completed. Leila Merino MD Referring Provider: ISIDRO ESTEVEZ [[id number]] Allergies As of Date: 01/04/2018 Noted Allergy Reaction ASA (ASPIRIN) 05/09/2015 5 - Intolerance Comments: nose bleeds CLINDAMYCIN 05/09/2015 14 - Other: See Comments Comments: jerking, talking funny DEMEROL (MEPERIDINE (PF)) 05/09/2015 8 - GI Upset IODINE 11/23/2016 9 - Itching MORPHINE 05/09/2015 8 - GI Upset VALIUM (DIAZEPAM) 05/09/2015 8 - GI Upset Date Reviewed: 01/04/2018 Reviewed by: Leila Merino - Fully Assessed Reason for Visit: ostomy options [Other] Primary Visit Diagnosis:Parastomal hernia without obstruction or gangrene [K43.5] Order(s):KSENIA NEAL BLAKE/BINDER [[id number]] Order #: [id number] Prescriptions as of 01/04/2018 Sig: OXYCODONE 5 MG TABLET Take 1-2 tablets by mouth morena* OXYCODONE 15 MG TABLET Take 15 mg by mouth every 12 * DOXYCYCLINE MONOHYDRATE 100 M* Take 1 tablet by mouth twice * CEPHALEXIN 500 MG CAPSULE Take 500 mg by mouth three ti* DIPHENHYDRAMINE 50 MG CAPSULE Take 1 capsule by mouth as di* CHOLECALCIFEROL (VITAMIN D3) * Take 2,000 Units by mouth onc* APIXABAN 5 MG TABLET 1 tablet twice daily. Take 1/* Patient taking differently: 5 mg twice daily. ONDANSETRON HCL 8 MG TABLET Take 1 tablet by mouth every * PHENERGAN ORAL Take by mouth as needed. 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 Dehydration [E86.0] INVALID FOR* CKD (chronic kidney disease) stage 3, GFR 30-59*INVALID FOR* Lymphedema [I89.0] INVALID FOR* Cellulitis of left lower extremity [L03.116] INVALID FOR* Visit Notes: >> Diana Tomas Jan 04, 2018 3:49 PM Status: Signed REVIEW OF SYSTEMS: General: The patient denies fatigue, denies weight loss, NOTES weight gain, NOTES feeling hot, and denies feelings of cold. Eyes: The patient denies glaucoma, denies eye injury/surgery, does not wear glasses or contacts. Ear/Nose/Throat: The patient NOTES allergies, NOTES hayfever, denies ear infections, and denies bloody noses. Cardiovascular: The patient denies chest pain, denies heart disease, denies high blood pressure,denies cardiac stent, denies prior heart attack, denies irregular heart beat, denies high cholesterol, denies poor circulation, denies heart failure, other cardiac issues, denies claudication, denies cold feet, denies peripheral arterial stent. Respiratory: The patient denies tuberculosis, denies pneumonia, denies frequent cough, NOTES pulmonary embolism, NOTES shortness of breath, and denies coughing up blood. Gastrointestinal: The patient denies difficulty swallowing, NOTES acid reflux, NOTES ulcers, denies vomiting, denies jaundice/hepatitis, denies gallbladder problems, denies black or tarry stools, denies hemorrhoids, NOTES bleeding from rectum, denies diverticulitis, denies constipation, denies diarrhea, denies loss of stool control, and NOTES hernias. Kidney/Bladder: The patient denies kidney stones, denies urine infections, and denies bloody urine. Skin: The patient denies a history of skin cancer, denies bleeding/changing moles, and denies a history of skin rash. Neurologic: The patient denies a history of epilepsy/convulsions, NOTES headaches, denies head/spinal injuries, and denies stroke/TIA. Psychiatric: The patient denies psychiatric medications, denies depression, and denies voices, denies substance abuse. Endocrine: The patient denies thyroid disorders, denies diabetes, and denies hormonal problems. Hematologic: The patient denies a history of bruising, denies bleeding, and NOTES anemia, NOTES blood clots. Infections: The patient NOTES a history of measles and mumps, NOTES rheumatic fever, and denies sexually transmitted diseases. Musculoskeletal: The patient denies back pain/injury, NOTES back problems, denies sciatica, denies knee/foot trouble, denies arthritis, or denies gout. ? ? When was patient's last Mammogram screening? unknown ? Last Colonoscopy: 02/2017 ? Follow-up and Disposition History Recorded Letter Text Encounter Status:Closed by LEILA MERINO MD on 01/04/18 [place] ABS GR + CBC Collected: 01/03/2018 Status: F Source: [place] 11:17 AM [facility] REPOSITORY TYPE CODE TESTS RESULT OUT OF REFERENCE UNITS RANGE LAB WWBC 3.70-11.00 k/uL [place] WBC 4.95 LAB WRBC 3.90-5.20 m/uL [place] RBC 4.08 LAB WHGB 11.5-15.5 g/dL [place] Hemoglobin 12.3 LAB WHCT 36.0-46.0 % [place] Hematocrit 39.4 LAB WMCV 80.0-100.0 fL [place] MCV 96.6 LAB WMCH 26.0-34.0 pg [place] MCH 30.1 LAB WMCHC 30.5-36.0 g/dL [place] MCHC 31.2 LAB WRDW 11.5-15.0 % [place] RDW 13.6 LAB WPLT 150-400 k/uL Low [place] Platelet Cnt 145 LAB WMPV 9.0-12.7 fL [place] MPV 9.3 Result Comment: Test performed at: [facility], [address] [place] [address] Rd., [place] [address]. LAB ABGRAN 1.45-7.50 k/uL Absol Gran 3.82 Count COMP METABOLIC PANEL Collected: 01/03/2018 Status: F Source: [place] 11:17 AM [facility] REPOSITORY TYPE CODE TESTS RESULT OUT OF REFERENCE UNITS RANGE LAB TP 6.3-8.0 g/dL Protein, Total 6.9 LAB ALB 3.9-4.9 g/dL Albumin 4.0 LAB CA 8.5-10.2 mg/dL Calcium, Total 9.0 LAB TBIL 0.2-1.3 mg/dL Bilirubin, Total 0.7 LAB ALKP 32-117 U/L Alkaline Phosphatase 92 LAB AST 13-35 U/L AST 17 LAB GLU 74-99 mg/dL Glucose High 135 Result Comment: The [place] Diabetes [employer] (ADA) provides guidance for cutoff values for fasting glucose and random glucose. The ADA defines fasting as no caloric intake for at least 8 hours. Fas ting plasma glucose results between 100 to 125 mg/dL indicate increased risk for diabetes (prediabetes). Fasting plasma glucose results greater than or equal to 126 mg/dL meet the criteria for diagnosis of diabetes. In the absence of unequivocal hyperglycemia, results should be confirmed by repeat testing. In a patient with classic symptoms of hyperglycemia or hyperglycemic crisis, random plasma glucose results greater than or equal to 200 mg/dL meet the criteria for diagnosis of diabetes. Reference: Standards of Medical Care in Diabetes 2016, [place] [employer]. Diabetes Care. 2016.39(Suppl 1). LAB BUN 7-21 mg/dL BUN High 31 LAB CRET 0.58-0.96 mg/dL Creatinine High 1.51 LAB NA 136-144 mmol/L Sodium 141 LAB K 3.7-5.1 mmol/L Potassium 4.3 LAB CL 97-105 mmol/L Chloride 102 LAB CO2 22-30 mmol/L CO2 28 LAB AGAP 9-18 mmol/L Anion Gap 11 LAB ALT 7-38 U/L ALT 12 LAB GFRAA eGFR- Amer. 41 LAB GFRNAA . eGFR-All Other Races 34 Result Comment: eGFR (Estimated GFR) Units of measure: mL/min/1.73 meters squared eGFR is derived from the reexpressed MDRD Study equation using the following parameters: serum creatinine, age, gender and race. The creatinine assay has been calibrated to be traceable to IDMS. An eGFR <60 mL/min/1.73m2 for >3 months is consistent with chronic kidney disease. Refer to KDOQI guidelines for clinical interpretation. In patients with unstable renal function, e.g. those with acute kidney injury, the eGFR may not accurately reflect actual GFR. 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 3) metastatic vaginal melanoma ? HPI: The patient is a 72 yo female with a PMH significant for DM2, asthma, VTE, and possible mild CKD as well has hysterectomy ~31 yrs ago who presented to [facility] ED 07/2013 with c/o dyspnea. CT chest significant for large b/l PE. One was a saddle embolus draped across the bifurcation of the main pulmonary artery and extending into both the right and left pulmonary artery segments per the CT report. Patient was transferred to [facility]. Not clear if she underwent thrombolysis. ? She recalls being discharged on Xarelto and was maintained on that drug until changed to Eliquis per her PCP. She was on that drug when she underwent work up for abdominal pain 03/2015. Underwent CT A/P 04/16/2015 that showed a large complex mass in the pelvis interpreted as arising from the uterus or an ovary and measuring 14.3 x 13.3 x 12.7 cm. It appeared to be well circumscribed not invading other structures. No evidence metastases elsewhere in abdomen. ? Patient was admitted to [facility] 04/19/2015 for acute left LE small DVT and possible cellulitis of the same leg. She was treated with vancomycin and anticoagulated with Lovenox and transferred to [facility] ([facility] under the care of a gynecologic oncology surgeon, Dr. Sony Monteiro. ? Underwent surgery 05/03/2015. The final pathology demonstrated that within the RIGHT ovary there was a granulosa cell tumor. The greatest dimension of the ovary was 18 cm. The left fallopian tube was not involved. The omentum was not involved. left ovary and right fallopian tubes were not involved. Tumor was adherent to the left pelvic sidewall. No regional lymph node metastasis was observed. Lymph nodes were removed from the left pelvic, left periaortic areas. Focal angiolymphatic invasion was identified. 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 ? She was discharged to [facility]. Since the time of surgery, she had been having abdominal pain that is sharp and low in abdomen. It crescendos and is partially relieved with a BM. Returns shortly thereafter. Stools were loose and she had been having intermittent nausea with poor appetite. Was transferred to [facility] [place] 05/09/2015 however for low Hgb of 6.1 g/dL. Received transfusion and admitted to [facility]. ? She received a blood transfusion. She was discharged back to the nursing facility and subsequent discharge home. She had been doing home physical therapy. She was making improvements. Initially seen here in plan was for adjuvant chemotherapy once the acute issues were resolved. ? She was admitted to [facility] with hypotension and acute kidney injury on June 17. Serum creatinine was 2.75 mg/dL. She was started on hydration and admitted to the intensive care unit after initiating broad-spectrum antibiotics. Blood cultures remained negative. Urine culture showed 10-50,000 colony-forming units of gram-positive cocci. Patient was transitioned to Levaquin and metronidazole. Creatinine normalized. She was discharged and is now being followed at the wound clinic. ? She underwent excisional debridement of the nonhealing ulcer in the anterior abdominal wall with complex secondary wound closure on 07/18/2015. It was explained to her that 3 layers of sutures are in place. The superficial layer is non-dissolvable whereas the underlying 2 layers are dissolvable. There is a plan for the non-dissolvable sutures to be removed on the through . ? Previous therapy: 1) Adjuvant carbo/paclitaxel x6 cycles completed 12/2015. ? She underwent pelvic exam under anesthesia on 12/04/2016. During the procedure she was observed to have a large approximately 7- 8 cm mass in the rectovaginal septum that infiltrated fairly downloaded to the hymenal ring. There was also infiltration along the right vaginal sidewall. Several core biopsies were obtained of the rectovaginal mass in the right vaginal sidewall. ? Areas revealed a poorly differentiated high-grade malignancy suggestive of malignant melanoma. Immunostains were positive for HMB-45, SOX-10 and [place]-1. CD3, CD20, CD45, CD138, inhibin, [place] 8 and S100 were negative. No BRAF mutation. ? Patient was admitted to [facility] for fever and malaise. She was found to have Escherichia coli sepsis. She was treated with broad-spectrum antibiotics. Urine appeared to be the source. She also received a 2 unit red blood cell transfusion. She underwent colonoscopy where in she was found to have extensive involvement of the rectum and was thereafter transferred to [facility]. On initial exam was determined that the tumor was significantly larger than it was on initial exam/biopsy. Therefore she underwent a palliative loop colostomy on 01/05. The patient had an unremarkable postoperative course and was discharged on Eliquis 5 mg twice a day and completed ciprofloxacin 14 days from her negative culture. ? 2) Palliative radiation on 01/26/2017. ? Current therapy: 1) Nivolumab. ? Presents for ongoing oncologic management. ? Interim history: Doing well overall. She is able to read with her left eye now. She was told vision is 20/25. Right eye she still feels like there is a film over her visual field. She is being referred to a retina specialist with whom she has an appointment next week. Question as to whether or not she can get intraocular steroids more frequent than every 3 months. No GI side effects. Pelvic pain under good control presently. No gross hematuria. No further vaginal bleeding. No other unusual bleeding or unexplained bruising. She was seen by general surgery at [facility]. Hernia repair was not advised due to the complicated nature of her case. Question came up as to whether or not she could have reversal colostomy. ? PMH, medications and allergies as below personally reviewed by me today. Any changes documented in appropriate section. ? ROS: Constitutional: Denies episodes of fever and night sweats. Neuro: Denies TANNER, vertigo, dizziness. HEENT: No recent change in voice, vision or hearing. Resp: Denies cough, wheeze and hemoptysis. Denies shortness of breath at rest. CVS: Denies exertional chest pain, PND, orthopnea. Chronic lower extremity edema stable. GI: Denies symptoms of stomatitis. Denies dysphagia and odynophagia. Denies reflux and nausea. : See above. Endo: Denies hot flashes. Denies polyuria and polydipsia. Denies heat and cold intolerance. Musculoskeletal: Denies bone, back, joint and muscular pain. Derm: Denies rash. Denies diffuse pruritis. Heme: See above. Psych: Normal mood. ? PHYSICAL EXAM: Well-appearing and in no acute distress. performance status 80% BP 137/63 Pulse 88 Temp (Src) 98.7 (Temporal Artery) Wt 206 lb 8 oz (93.7kg) EYES: Sclerae are anicteric bilaterally. Mild conjunctival injection. Eyelashes have lightened in color. NECK: Supple. LYMPHATIC: There is no palpable cervical, supraclavicular adenopathy. RESPIRATORY: Inspiratory breath sounds are of normal intensity in all muir. No rales, wheezes or rhonchi. CARDIOVASCULAR: Rhythm is regular. Normal intensity S1/S2. There is no gallop or murmur. ABDOMEN: The abdomen is nondistended. Ostomy appears healthy. There is stable surrounding herniation that is tender, but remains reducible. Extremities: Stable lower extremity swelling worse on the left. SKIN: Less swelling and edema bilaterally. Another flare cellulitis left leg. 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 ? 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 -She is tolerating OPDIVO treatment very well with significant response of the pelvic melanoma. She is having side effects including iritis and retinitis but the symptoms are stable to improving on local steroid therapy. -Reviewed the results of the most recent CT scans from 11/23 with her. Essentially CR in the pelvis. Continued responding metastatic adenopathy in the pelvis. Plan: -Okay for continued therapy. -Monitor CBC and CMP monthly with treatment -Follow up with wildlife biostation research ecologist as scheduled. -Repeat CT chest abdomen pelvis for restaging in 2 months. -She would like a referral to Dr. Headley to see whether he would be willing to do ostomy reversal for her locally. ? 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 ? 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 -Presently no vaginal bleeding. Plan: -Continue Eliquis 5 mg twice a day. ? (R10.2) Pelvic pain Assessment/Plan: -Under good control. Plan: -Continue current regimen. (L03.119) Recurrent cellulitis and lymphedema lower extremities. Assessment/Plan: -She has chronic stasis dermatitis. -Chronic venous stasis and lymphedema Plan: -Rx doxycycline. Isidro Estevez DO CNOVSP Observed: 12/31/2017 Status: COMPLETED Source: [place] 10:00 AM [facility] REPOSITORY Visit (SP) Office ([facility]) KANU AJ ([id number]) 1945 F Date Time Provider Department 12/31/17 10:00 AM ISIDRO ESTEVEZ During your visit today, we recorded the following information about you: Temperature Pulse Blood pressure Weight 98.7 degrees 88/minute 137/63 93.7 kg Shelia Sanchez SHARIF 12/31/2017 10:25 AM Signed Est patient. Treatment Wednesday. 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 3) metastatic vaginal melanoma ? HPI: The patient is a 72 yo female with a PMH significant for DM2, asthma, VTE, and possible mild CKD as well has hysterectomy ~31 yrs ago who presented to [facility] ED 07/2013 with c/o dyspnea. CT chest significant for large b/l PE. One was a saddle embolus draped across the bifurcation of the main pulmonary artery and extending into both the right and left pulmonary artery segments per the CT report. Patient was transferred to [facility]. Not clear if she underwent thrombolysis. ? She recalls being discharged on Xarelto and was maintained on that drug until changed to Eliquis per her PCP. She was on that drug when she underwent work up for abdominal pain 03/2015. Underwent CT A/P 04/16/2015 that showed a large complex mass in the pelvis interpreted as arising from the uterus or an ovary and measuring 14.3 x 13.3 x 12.7 cm. It appeared to be well circumscribed not invading other structures. No evidence metastases elsewhere in abdomen. ? Patient was admitted to [facility] 04/19/2015 for acute left LE small DVT and possible cellulitis of the same leg. She was treated with vancomycin and anticoagulated with Lovenox and transferred to [facility] ([facility]) under the care of a gynecologic oncology surgeon, Dr. Sony Monteiro. ? Underwent surgery 05/03/2015. The final pathology demonstrated that within the RIGHT ovary there was a granulosa cell tumor. The greatest dimension of the ovary was 18 cm. The left fallopian tube was not involved. The omentum was not involved. left ovary and right fallopian tubes were not involved. Tumor was adherent to the left pelvic sidewall. No regional lymph node metastasis was observed. Lymph nodes were removed from the left pelvic, left periaortic areas. Focal angiolymphatic invasion was identified. 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 ? She was discharged to [facility]. Since the time of surgery, she had been having abdominal pain that is sharp and low in abdomen. It crescendos and is partially relieved with a BM. Returns shortly thereafter. Stools were loose and she had been having intermittent nausea with poor appetite. Was transferred to [facility] 05/09/2015 however for low Hgb of 6.1 g/dL. Received transfusion and admitted to [facility]. ? She received a blood transfusion. She was discharged back to the nursing facility and subsequent discharge home. She had been doing home physical therapy. She was making improvements. Initially seen here in plan was for adjuvant chemotherapy once the acute issues were resolved. ? She was admitted to [facility] with hypotension and acute kidney injury on June 17. Serum creatinine was 2.75 mg/dL. She was started on hydration and admitted to the intensive care unit after initiating broad-spectrum antibiotics. Blood cultures remained negative. Urine culture showed 10-50,000 colony-forming units of gram-positive cocci. Patient was transitioned to Levaquin and metronidazole. Creatinine normalized. She was discharged and is now being followed at the wound clinic. ? She underwent excisional debridement of the nonhealing ulcer in the anterior abdominal wall with complex secondary wound closure on 07/18/2015. It was explained to her that 3 layers of sutures are in place. The superficial layer is non-dissolvable whereas the underlying 2 layers are dissolvable. There is a plan for the non-dissolvable sutures to be removed on the through . ? Previous therapy: 1) Adjuvant carbo/paclitaxel x6 cycles completed 12/2015. ? She underwent pelvic exam under anesthesia on 12/04/2016. During the procedure she was observed to have a large approximately 7-8 cm mass in the rectovaginal septum that infiltrated fairly downloaded to the hymenal ring. There was also infiltration along the right vaginal sidewall. Several core biopsies were obtained of the rectovaginal mass in the right vaginal sidewall. ? Areas revealed a poorly differentiated high-grade malignancy suggestive of malignant melanoma. Immunostains were positive for HMB-45, SOX-10 and [place]-1. CD3, CD20, CD45, CD138, inhibin, [place] 8 and S100 were negative. No BRAF mutation. ? Patient was admitted to [facility] for fever and malaise. She was found to have Escherichia coli sepsis. She was treated with broad-spectrum antibiotics. Urine appeared to be the source. She also received a 2 unit red blood cell transfusion. She underwent colonoscopy where in she was found to have extensive involvement of the rectum and was thereafter transferred to [facility]. On initial exam was determined that the tumor was significantly larger than it was on initial exam/biopsy. Therefore she underwent a palliative loop colostomy on 01/05. The patient had an unremarkable postoperative course and was discharged on Eliquis 5 mg twice a day and completed ciprofloxacin 14 days from her negative culture. ? 2) Palliative radiation on 01/26/2017. ? Current therapy: 1) Nivolumab. ? Presents for ongoing oncologic management. ? Interim history: Doing well overall. She is able to read with her left eye now. She was told vision is 20/25. Right eye she still feels like there is a film over her visual field. She is being referred to a retina specialist with whom she has an appointment next week. Question as to whether or not she can get intraocular steroids more frequent than every 3 months. No GI side effects. Pelvic pain under good control presently. No gross hematuria. No further vaginal bleeding. No other unusual bleeding or unexplained bruising. She was seen by general surgery at [facility]. Hernia repair was not advised due to the complicated nature of her case. Question came up as to whether or not she could have reversal colostomy. ? PMH, medications and allergies as below personally reviewed by me today. Any changes documented in appropriate section. ? ROS: Constitutional: Denies episodes of fever and night sweats. Neuro: Denies TANNER, vertigo, dizziness. HEENT: No recent change in voice, vision or hearing. Resp: Denies cough, wheeze and hemoptysis. Denies shortness of breath at rest. CVS: Denies exertional chest pain, PND, orthopnea. Chronic lower extremity edema stable. GI: Denies symptoms of stomatitis. Denies dysphagia and odynophagia. Denies reflux and nausea. : See above. Endo: Denies hot flashes. Denies polyuria and polydipsia. Denies heat and cold intolerance. Musculoskeletal: Denies bone, back, joint and muscular pain. Derm: Denies rash. Denies diffuse pruritis. Heme: See above. Psych: Normal mood. ? PHYSICAL EXAM: Well-appearing and in no acute distress. performance status 80% BP 137/63 Pulse 88 Temp (Src) 98.7 (Temporal Artery) Wt 206 lb 8 oz (93.7kg) EYES: Sclerae are anicteric bilaterally. Mild conjunctival injection. Eyelashes have lightened in color. NECK: Supple. LYMPHATIC: There is no palpable cervical, supraclavicular adenopathy. RESPIRATORY: Inspiratory breath sounds are of normal intensity in all muir. No rales, wheezes or rhonchi. CARDIOVASCULAR: Rhythm is regular. Normal intensity S1/S2. There is no gallop or murmur. ABDOMEN: The abdomen is nondistended. Ostomy appears healthy. There is stable surrounding herniation that is tender, but remains reducible. Extremities: Stable lower extremity swelling worse on the left. SKIN: Less swelling and edema bilaterally. Another flare cellulitis left leg. 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 ? 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 -She is tolerating OPDIVO treatment very well with significant response of the pelvic melanoma. She is having side effects including iritis and retinitis but the symptoms are stable to improving on local steroid therapy. -Reviewed the results of the most recent CT scans from 11/23 with her. Essentially CR in the pelvis. Continued responding metastatic adenopathy in the pelvis. Plan: -Okay for continued therapy. -Monitor CBC and CMP monthly with treatment -Follow up with wildlife biostation research ecologist as scheduled. -Repeat CT chest abdomen pelvis for restaging in 2 months. -She would like a referral to Dr. Headley to see whether he would be willing to do ostomy reversal for her locally. ? 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 ? 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 -Presently no vaginal bleeding. Plan: -Continue Eliquis 5 mg twice a day. ? (R10.2) Pelvic pain Assessment/Plan: -Under good control. Plan: -Continue current regimen. (L03.119) Recurrent cellulitis and lymphedema lower extremities. Assessment/Plan: -She has chronic stasis dermatitis. -Chronic venous stasis and lymphedema Plan: -Rx doxycycline. Isidro Estevez DO Referring Provider: ISIDRO ESTEVEZ [[id number]] Allergies As of Date: 12/31/2017 Noted Allergy Reaction ASA (ASPIRIN) 05/09/2015 5 - Intolerance Comments: nose bleeds CLINDAMYCIN 05/09/2015 14 - Other: See Comments Comments: jerking, talking funny DEMEROL (MEPERIDINE (PF)) 05/09/2015 8 - GI Upset IODINE 11/23/2016 9 - Itching MORPHINE 05/09/2015 8 - GI Upset VALIUM (DIAZEPAM) 05/09/2015 8 - GI Upset Date Reviewed: 12/31/2017 Reviewed by: Shelia Sanchez LPN - Fully Assessed Reason for Visit: Established Patient [175] Primary Visit Diagnosis:Malignant melanoma of skin (HCC) [C43.9] Other Visit Diagnoses: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) [C56.2] 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 Take 1/* Patient taking differently: 5 mg twice daily. ONDANSETRON HCL 8 MG TABLET Take 1 tablet by mouth every * PHENERGAN ORAL Take by mouth as needed. FUROSEMIDE 40 MG TABLET Take 40 mg by mouth twice jessica* ASCORBIC ACID (VITAMIN C) 1,0* Take 1,000 mg by mouth once d* METFORMIN 500 MG TABLET Take 1/2 tablet by mouth twic* CYANOCOBALAMIN (VIT B-12) 250* Take 1 tablet by mouth once d* CYCLOBENZAPRINE 10 MG TABLET Take 10 mg by mouth daily at * MULTIVITAMIN-IRON 9 MG-FOLIC * Take 1 tablet by mouth once d* CETIRIZINE 10 MG TABLET Take 10 mg by mouth once kaz* ACETAMINOPHEN 325 MG TABLET Take 325 mg by mouth every 6 * ALBUTEROL SULFATE HFA 90 MCG/* Inhale 2 Puffs as instructed * DOXYCYCLINE MONOHYDRATE 100 M* Take 1 tablet by mouth twice * CEPHALEXIN 500 MG CAPSULE Take 500 mg by mouth three ti* Problem List As Of Date 12/31/2017 Noted Resolved 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 Dehydration [E86.0] INVALID FOR* CKD (chronic kidney disease) stage 3, GFR 30-59*INVALID FOR* Lymphedema [I89.0] INVALID FOR* Cellulitis of left lower extremity [L03.116] INVALID FOR* Visit Notes: >> Shelia Sanchez LPN WedDec 31, 2017 9:55 AM Status: Signed Est patient. Treatment Wednesday. Shelia Sanchez LPN Encounter Status:Closed by ISIDRO ESTEVEZ DO on 12/31/17 COMP METABOLIC PANEL Collected: 12/21/2017 Status: F Source: [facility] 11:15 AM [facility] REPOSITORY TYPE CODE TESTS RESULT OUT OF REFERENCE UNITS RANGE LAB TP 6.3-8.0 g/dL Protein, Total 6.8 LAB ALB 3.9-4.9 g/dL Albumin 4.0 LAB CA 8.5-10.2 mg/dL Calcium, Total 9.6 LAB TBIL 0.2-1.3 mg/dL Bilirubin, Total 0.7 LAB ALKP 32-117 U/L Alkaline Phosphatase 102 LAB AST 13-35 U/L AST 21 LAB GLU 74-99 mg/dL Glucose High 141 Result Comment: The [place] Diabetes Association (ADA) provides guidance for cutoff values for fasting glucose and random glucose. The ADA defines fasting as no caloric intake for at least 8 hours. Fas ting plasma glucose results between 100 to 125 mg/dL indicate increased risk for diabetes (prediabetes). Fasting plasma glucose results greater than or equal to 126 mg/dL meet the criteria for diagnosis of diabetes. In the absence of unequivocal hyperglycemia, results should be confirmed by repeat testing. In a patient with classic symptoms of hyperglycemia or hyperglycemic crisis, random plasma glucose results greater than or equal to 200 mg/dL meet the criteria for diagnosis of diabetes. Reference: Standards of Medical Care in Diabetes 2016, [place] [employer] Association. Diabetes Care. 2016.39(Suppl 1). LAB BUN 7-21 mg/dL BUN High 26 LAB CRET 0.58-0.96 mg/dL Creatinine High 1.42 LAB NA 136-144 mmol/L Sodium 140 LAB K 3.7-5.1 mmol/L Potassium 4.3 LAB CL 97-105 mmol/L Chloride 98 LAB CO2 22-30 mmol/L CO2 28 LAB AGAP 9-18 mmol/L Anion Gap 14 LAB ALT 7-38 U/L ALT 27 LAB GFRAA eGFR- Amer. 44 LAB GFRNAA . eGFR-All Other Races 36 Result Comment: eGFR (Estimated GFR) Units of measure: mL/min/1.73 meters squared eGFR is derived from the reexpressed MDRD Study equation using the following parameters: serum creatinine, age, gender and race. The creatinine assay has been calibrated to be traceable to IDMS. An eGFR <60 mL/min/1.73m2 for >3 months is consistent with chronic kidney disease. Refer to KDOQI guidelines for clinical interpretation. In patients with unstable renal function, e.g. those with acute kidney injury, the eGFR may not accurately reflect actual GFR. Performed By: #### CMP #### [facility] [address] [place], [place] [address] [place] ABS GR + CBC Collected: 12/21/2017 Status: F Source: [facility] 11:14 AM [facility] REPOSITORY TYPE CODE TESTS RESULT OUT OF REFERENCE UNITS RANGE LAB WWBC 3.70-11.00 k/uL [place] WBC 5.17 LAB WRBC 3.90-5.20 m/uL [place] RBC 4.11 LAB WHGB 11.5-15.5 g/dL [place] Hemoglobin 12.5 LAB WHCT 36.0-46.0 % [place] Hematocrit 39.7 LAB WMCV 80.0-100.0 fL [place] MCV 96.6 LAB WMCH 26.0-34.0 pg [place] MCH 30.4 LAB WMCHC 30.5-36.0 g/dL [place] MCHC 31.5 LAB WRDW 11.5-15.0 % [place] RDW 13.5 LAB WPLT 150-400 k/uL [place] Platelet Cnt 161 LAB WMPV 9.0-12.7 fL [place] MPV 9.4 Result Comment: Test performed at: [facility], [address] [place] [address] Rd., [place] [address]. LAB ABGRAN 1.45-7.50 k/uL Absol Gran 3.59 Count PROGRESS Observed: 12/06/2017 Status: COMPLETED Source: [facility] 1:15 PM [facility] REPOSITORY HNO ID: [id number] Author: Cathy Cabrera Service: (none) Author Type: Physician Type: Progress Notes Filed: 12/06/2017 1:25 PM Note Text: Consultation requested by Dr. Daigle for an opinion regarding parastomal hernia. My final recommendations will be communicated back to the requesting physician by way of shared medical record or letter via US mail I have seen and evaluated the patient and discussed the case with the resident physician. I agree with the assessment and plan as documented in the resident?s note. Mrs Aj is a 72 year old female who is here for evaluation of a parastomal hernia. She has a history of metastatic vaginal melanoma which was causing a distal obstruction so she had a diverting loop colostomy. She has been undergoing systemic therapy and the melanoma has decreased in size. Regarding her parastomal hernia, she has not had any obstructions. She has some pouching issues and discomfort. Ultimately, given her history and melanoma I would not recommend repairing the hernia at this time. If she develops obstructions then she would require a repair. She also discussed getting the stoma reversed. If the tumor has shrunk enough that could be an option but she would need to see one of our colorectal surgeons to discuss that. PROGRESS Observed: 12/06/2017 Status: COMPLETED Source: [facility] 11:16 AM [facility] REPOSITORY HNO ID: [id number] Author: Gin Bolanos Service: (none) Author Type: Resident Type: Progress Notes Filed: 12/06/2017 1:25 PM Note Text: SURGICAL SERVICES HANDP SERVICE DATE: 12/06/2017 SERVICE TIME: 11:23 AM PRIMARY CARE PHYSICIAN: Chente Daigle MD Subjective CHIEF COMPLAINT: Parastomal hernia HISTORY OF PRESENT ILLNESS: Ms. Aj is a 72 year old female with a history of DM2, asthma, granulosa cell tumor of the ovary (s/p ex-lap BSO), DVT/PE on xarelto and vaginal melanoma with pelvic mass causing obstruction (s/p ex-lap and diverting loop colostomy) who presents with a parastomal hernia. The patient had the loop colostomy placed in 2016 and has had good function since. Over the past 6 months she has noted a parastomal hernia which has increased in sized and caused increasing discomfort. She denies any obstructive symptoms related to the hernia and is tolerating oral intake with good ostomy function. She does endorse some mild pouching issues, but changes her appliance only every 3 days. The patient is currently receiving immunotherapy for her melanoma and is having a good clinical response. 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 (chemo)- currently PAST SURGICAL HISTORY Procedure Laterality Date - CHOLECYSTECTOMY HX ~2002 - COLONOSCOPY W/BX 12/28/2016 low rectal mass - EXPLORATORY LAPAROTOMY, CELIOTOMY-SP 2016 obstructing pelvic mass, unresectable, diverting loop colostomy - EXPLORATORY OF ABDOMEN 05/03/2015 exploratory laparotomy and bilateral salpingo-oophorectomy - HIP SURGERY HX Right ~2005 Hip replacement - HYSTERECTOMY HX - KNEE SCOPE,DIAGNOSTIC Right Arthroscopy, knee - REVISE MEDIAN N/CARPAL TUNNEL SURG Bilateral carpal tunnel decomp - SHOULDER SURGERY HX Left Shoulder - TOTAL KNEE REPLACEMENT Left ~2006 Knee replacement FAMILY HISTORY Problem Relation Age of Onset - Kidney Disease Father at age 80 - other (Kidney Cancer) Father - Diabetes Brother - Hypertension Brother - Heart Brother Social History Substance Use Topics - Smoking status: Never Smoker - Smokeless tobacco: Never Used - Alcohol use No (Not in a hospital admission) No current hospital medications on file. ALLERGIES Allergen Reactions - Asa [Aspirin] Intolerance nose bleeds - Clindamycin Other: See Comments jerking, talking funny - Demerol [Meperidine* GI Upset - Iodine Itching - Morphine GI Upset - Valium [Diazepam] GI Upset COMPLETE REVIEW OF SYSTEMS: GENERAL: No weight loss, malaise or fevers RESPIRATORY: Negative for cough, hemoptysis, wheezing, COPD, dyspnea or shortness of breath CARDIOVASCULAR: Negative for chest pain, leg swelling, hypertension, CHF or palpitations GI: No nausea, vomiting, or diarrhea Objective PHYSICAL EXAM: BP 137/59 Pulse 80 Temp (Src) 98.2 (Tympanic) Ht 5' 1 (1.55m) Wt 207 lb 4.8 oz (94.0kg) BMI 39.19 kg/(m2). Physical Exam Performed GENERAL: Alert, no distress, cooperative LUNGS: Non labored breathing, no shortness of breath CARDIAC: regular rate ABDOMEN: Abdomen soft, non-tender, loop colostomy pink and viable with large parastomal hernia, easily reducible EXTREMITIES: Extremities normal, no deformities, edema, clubbing or skin discoloration. DATA: Diagnostic tests reviewed for today's visit: Most recent labs and imaging results. Assessment/Plan 72 year old female with metastatic vaginal melanoma and obstructing pelvic mass with a loop colostomy and now a large parastomal hernia Patient without obstructive symptoms or severe symptoms impacting quality of life Given currently immunotherapy and good clinical response would defer any surgical intervention at this time as surgery would likely require cessation of therapy Patient also would like to follow up with oncology team regarding feasibility of ostomy reversal SIGNATURE: Gin Bolanos MD PATIENT NAME: Kanu Aj DATE: December 06, 2017 TIME: 11:16 AM PAGER/CONTACT #: [id number] CNOV Observed: 12/06/2017 Status: COMPLETED Source: [facility] 10:30 AM [facility] REPOSITORY Office Visit (JOSE ANGEL) TIMOTHY AJECGINI Jenkins ([id number]) 1945 F Date Time Provider Department 12/06/17 10:30 AM CATHY CABRERA During your visit today, we recorded the following information about you: Temperature Pulse Blood pressure Weight 98.2 degrees 80/minute 137/59 94 kg Height 1.549 m Mari Rustsaranya Agosto 12/06/2017 11:02 AM Signed What is the reason for your visit today? Consult Who is your referring physician? Dr. Estevez Are you having poor oral intake? NO Have you had unintentional weight loss of 15 lbs/7 Kg in the last 3-6 months? NO Bowels: regular Wound: clean AND dry Temperature: No Drains: No Gin Bolanos MD 12/06/2017 1:25 PM Signed SURGICAL SERVICES HANDP SERVICE DATE: 12/06/2017 SERVICE TIME: 11:23 AM PRIMARY CARE PHYSICIAN: Chente Daigle MD Subjective CHIEF COMPLAINT: Parastomal hernia HISTORY OF PRESENT ILLNESS: Ms. Aj is a 72 year old female with a history of DM2, asthma, granulosa cell tumor of the ovary (s/p ex-lap BSO), DVT/PE on xarelto and vaginal melanoma with pelvic mass causing obstruction (s/p ex-lap and diverting loop colostomy) who presents with a parastomal hernia. The patient had the loop colostomy placed in 2017 and has had good function since. Over the past 6 months she has noted a parastomal hernia which has increased in sized and caused increasing discomfort. She denies any obstructive symptoms related to the hernia and is tolerating oral intake with good ostomy function. She does endorse some mild pouching issues, but changes her appliance only every 3 days. The patient is currently receiving immunotherapy for her melanoma and is having a good clinical response. 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 (chemo)- currently PAST SURGICAL HISTORY Procedure Laterality Date - CHOLECYSTECTOMY HX ~2002 - COLONOSCOPY W/BX 12/28/2016 low rectal mass - EXPLORATORY LAPAROTOMY, CELIOTOMY-SP 2016 obstructing pelvic mass, unresectable, diverting loop colostomy - EXPLORATORY OF ABDOMEN 05/03/2015 exploratory laparotomy and bilateral salpingo-oophorectomy - HIP SURGERY HX Right ~2005 Hip replacement - HYSTERECTOMY HX - KNEE SCOPE,DIAGNOSTIC Right Arthroscopy, knee - REVISE MEDIAN N/CARPAL TUNNEL SURG Bilateral carpal tunnel decomp - SHOULDER SURGERY HX Left Shoulder - TOTAL KNEE REPLACEMENT Left ~2005 Knee replacement FAMILY HISTORY Problem Relation Age of Onset - Kidney Disease Father at age 80 - other (Kidney Cancer) Father - Diabetes Brother - Hypertension Brother - Heart Brother Social History Substance Use Topics - Smoking status: Never Smoker - Smokeless tobacco: Never Used - Alcohol use No (Not in a hospital admission) No current hospital medications on file. ALLERGIES Allergen Reactions - Asa [Aspirin] Intolerance nose bleeds - Clindamycin Other: See Comments jerking, talking funny - Demerol [Meperidine* GI Upset - Iodine Itching - Morphine GI Upset - Valium [Diazepam] GI Upset COMPLETE REVIEW OF SYSTEMS: GENERAL: No weight loss, malaise or fevers RESPIRATORY: Negative for cough, hemoptysis, wheezing, COPD, dyspnea or shortness of breath CARDIOVASCULAR: Negative for chest pain, leg swelling, hypertension, CHF or palpitations GI: No nausea, vomiting, or diarrhea Objective PHYSICAL EXAM: BP 137/59 Pulse 80 Temp (Src) 98.2 (Tympanic) Ht 5' 1 (1.55m) Wt 207 lb 4.8 oz (94.0kg) BMI 39.19 kg/(m2). Physical Exam Performed GENERAL: Alert, no distress, cooperative LUNGS: Non labored breathing, no shortness of breath CARDIAC: regular rate ABDOMEN: Abdomen soft, non-tender, loop colostomy pink and viable with large parastomal hernia, easily reducible EXTREMITIES: Extremities normal, no deformities, edema, clubbing or skin discoloration. DATA: Diagnostic tests reviewed for today's visit: Most recent labs and imaging results. Assessment/Plan 72 year old female with metastatic vaginal melanoma and obstructing pelvic mass with a loop colostomy and now a large parastomal hernia Patient without obstructive symptoms or severe symptoms impacting quality of life Given currently immunotherapy and good clinical response would defer any surgical intervention at this time as surgery would likely require cessation of therapy Patient also would like to follow up with oncology team regarding feasibility of ostomy reversal SIGNATURE: Gin Bolanos MD PATIENT NAME: Kanu Aj DATE: December 06, 2017 TIME: 11:16 AM PAGER/CONTACT #: [id number] CATHY CABRERA MD 12/06/2017 1:25 PM Signed Consultation requested by Dr. Daigle for an opinion regarding parastomal hernia. My final recommendations will be communicated back to the requesting physician by way of shared medical record or letter via US mail I have seen and evaluated the patient and discussed the case with the resident physician. I agree with the assessment and plan as documented in the resident?s note. Mrs Aj is a 72 year old female who is here for evaluation of a parastomal hernia. She has a history of metastatic vaginal melanoma which was causing a distal obstruction so she had a diverting loop colostomy. She has been undergoing systemic therapy and the melanoma has decreased in size. Regarding her parastomal hernia, she has not had any obstructions. She has some pouching issues and discomfort. Ultimately, given her history and melanoma I would not recommend repairing the hernia at this time. If she develops obstructions then she would require a repair. She also discussed getting the stoma reversed. If the tumor has shrunk enough that could be an option but she would need to see one of our colorectal surgeons to discuss that. Referring Provider: SELF [[id number]] Allergies As of Date: 12/06/2017 Noted Allergy Reaction ASA (ASPIRIN) 05/09/2015 5 - Intolerance Comments: nose bleeds CLINDAMYCIN 05/09/2015 14 - Other: See Comments Comments: jerking, talking funny DEMEROL (MEPERIDINE (PF)) 05/09/2015 8 - GI Upset IODINE 11/23/2016 9 - Itching MORPHINE 05/09/2015 8 - GI Upset VALIUM (DIAZEPAM) 05/09/2015 8 - GI Upset Date Reviewed: 12/06/2017 Reviewed by: Cathy Cabrera - Fully Assessed Primary Visit Diagnosis:Parastomal hernia without obstruction or gangrene [K43.5] Prescriptions as of 12/06/2017 Sig: OXYCODONE 5 MG TABLET Take 1-2 tablets by mouth morena* DOXYCYCLINE HYCLATE 100 MG CA* Take 100 mg by mouth twice da* CEPHALEXIN 500 MG CAPSULE Take 500 mg by mouth three ti* DIPHENHYDRAMINE 50 MG CAPSULE Take 1 capsule by mouth as di* OXYCODONE 15 MG TABLET Take 15 mg by mouth every 12 * CHOLECALCIFEROL (VITAMIN D3) * Take 2,000 Units by mouth onc* APIXABAN 5 MG TABLET 1 tablet twice daily. Take 1/* Patient taking differently: 5 mg twice daily. ONDANSETRON HCL 8 MG TABLET Take 1 tablet by mouth every * PHENERGAN ORAL Take by mouth as needed. 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 Dehydration [E86.0] INVALID FOR* CKD (chronic kidney disease) stage 3, GFR 30-59*INVALID FOR* Lymphedema [I89.0] INVALID FOR* Visit Notes: >> Mari Myers Ma Mon Dec 06, 2017 11:00 AM Status: Signed What is the reason for your visit today? Consult Who is your referring physician? Dr. Estevez Are you having poor oral intake? NO Have you had unintentional weight loss of 15 lbs/7 Kg in the last 3-6 months? NO Bowels: regular Wound: clean AND dry Temperature: No Drains: No Encounter Status:Closed by CATHY CABRERA MD on 12/06/17 PROGRESS Observed: 12/03/2017 Status: COMPLETED Source: [place] 9:06 AM [facility] REPOSITORY HNO ID: [id number] Author: Isidro Estevez Service: (none) Author Type: Physician Type: Progress Notes Filed: 12/03/2017 9:34 AM Note Text: Diagnoses: 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 3) metastatic vaginal melanoma ? HPI: The patient is a 72 yo female with a PMH significant for DM2, asthma, VTE, and possible mild CKD as well has hysterectomy ~31 yrs ago who presented to [facility] ED 07/2013 with c/o dyspnea. CT chest significant for large b/l PE. One was a saddle embolus draped across the bifurcation of the main pulmonary artery and extending into both the right and left pulmonary artery segments per the CT report. Patient was transferred to [facility]. Not clear if she underwent thrombolysis. ? She recalls being discharged on Xarelto and was maintained on that drug until changed to Eliquis per her PCP. She was on that drug when she underwent work up for abdominal pain 03/2015. Underwent CT A/P 04/16/2015 that showed a large complex mass in the pelvis interpreted as arising from the uterus or an ovary and measuring 14.3 x 13.3 x 12.7 cm. It appeared to be well circumscribed not invading other structures. No evidence metastases elsewhere in abdomen. ? Patient was admitted to [facility] 04/19/2015 for acute left LE small DVT and possible cellulitis of the same leg. She was treated with vancomycin and anticoagulated with Lovenox and transferred to [facility] ([facility]) under the care of a gynecologic oncology surgeon, Dr. Sony Monteiro. ? Underwent surgery 05/03/2015. The final pathology demonstrated that within the RIGHT ovary there was a granulosa cell tumor. The greatest dimension of the ovary was 18 cm. The left fallopian tube was not involved. The omentum was not involved. left ovary and right fallopian tubes were not involved. Tumor was adherent to the left pelvic sidewall. No regional lymph node metastasis was observed. Lymph nodes were removed from the left pelvic, left periaortic areas. Focal angiolymphatic invasion was identified. 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 ? She was discharged to [facility]. Since the time of surgery, she had been having abdominal pain that is sharp and low in abdomen. It crescendos and is partially relieved with a BM. Returns shortly thereafter. Stools were loose and she had been having intermittent nausea with poor appetite. Was transferred to [facility] 05/09/2015 however for low Hgb of 6.1 g/dL. Received transfusion and admitted to [facility]. ? She received a blood transfusion. She was discharged back to the nursing facility and subsequent discharge home. She had been doing home physical therapy. She was making improvements. Initially seen here in plan was for adjuvant chemotherapy once the acute issues were resolved. ? She was admitted to [facility] with hypotension and acute kidney injury on June 17. Serum creatinine was 2.75 mg/dL. She was started on hydration and admitted to the intensive care unit after initiating broad-spectrum antibiotics. Blood cultures remained negative. Urine culture showed 10-50,000 colony-forming units of gram-positive cocci. Patient was transitioned to Levaquin and metronidazole. Creatinine normalized. She was discharged and is now being followed at the wound clinic. ? She underwent excisional debridement of the nonhealing ulcer in the anterior abdominal wall with complex secondary wound closure on 07/18/2015. It was explained to her that 3 layers of sutures are in place. The superficial layer is non-dissolvable whereas the underlying 2 layers are dissolvable. There is a plan for the non-dissolvable sutures to be removed on the through . ? Previous therapy: 1) Adjuvant carbo/paclitaxel x6 cycles completed 12/2015. ? She underwent pelvic exam under anesthesia on 12/04/2016. During the procedure she was observed to have a large approximately 7- 8 cm mass in the rectovaginal septum that infiltrated fairly downloaded to the hymenal ring. There was also infiltration along the right vaginal sidewall. Several core biopsies were obtained of the rectovaginal mass in the right vaginal sidewall. ? Areas revealed a poorly differentiated high-grade malignancy suggestive of malignant melanoma. Immunostains were positive for HMB-45, SOX-10 and [place]-1. CD3, CD20, CD45, CD138, inhibin, [place] 8 and S100 were negative. No BRAF mutation. ? Patient was admitted to [facility] for fever and malaise. She was found to have Escherichia coli sepsis. She was treated with broad-spectrum antibiotics. Urine appeared to be the source. She also received a 2 unit red blood cell transfusion. She underwent colonoscopy where in she was found to have extensive involvement of the rectum and was thereafter transferred to [facility]. On initial exam was determined that the tumor was significantly larger than it was on initial exam/biopsy. Therefore she underwent a palliative loop colostomy on 01/05. The patient had an unremarkable postoperative course and was discharged on Eliquis 5 mg twice a day and completed ciprofloxacin 14 days from her negative culture. ? 2) Palliative radiation on 01/26/2017. ? Current therapy: 1) Nivolumab. ? Presents for ongoing oncologic management. ? Interim history: She's been having a lot of flare of allergies and asthma because of reconstruction were going on in her house. A lot of plaster dust all throughout. Otherwise her eyesight has improved. She can read with her left eye. She has trouble with fine print but readers help. She was told by her wildlife biostation research ecologist her some more retinal/macular edema in the right eye and she scheduled to see a specialist at [facility]. Previously this symptom has responded to intraocular steroid injection. She has no other side effect from immunotherapy. She still having a lot of pain and discomfort from the ventral/parastomal hernia. Pelvic pain is under good control presently with her current pain medication regimen. No vaginal bleeding.? ? PMH, medications and allergies as below personally reviewed by me today. Any changes documented in appropriate section. ? ROS: Constitutional: Denies episodes of fever and night sweats. Neuro: Denies TANNER, vertigo, dizziness. HEENT: No recent change in voice, vision or hearing. Resp: Denies cough, wheeze and hemoptysis. Denies shortness of breath at rest. CVS: Denies exertional chest pain, PND, orthopnea. Chronic lower extremity edema stable. GI: Denies symptoms of stomatitis. Denies dysphagia and odynophagia. Denies reflux and nausea. : See above. Endo: Denies hot flashes. Denies polyuria and polydipsia. Denies heat and cold intolerance. Musculoskeletal: Denies bone, back, joint and muscular pain. Derm: Denies rash. Denies diffuse pruritis. Heme: See above. Psych: Normal mood. ? PHYSICAL EXAM: Well-appearing and in no acute distress. performance status 80% BP 135/61 Pulse 78 Temp 98.1 Wt 207 lb (93.9kg) EYES: Sclerae are anicteric bilaterally. Mild conjunctival injection. Eyelashes have lightened in color. NECK: Supple. LYMPHATIC: There is no palpable cervical, supraclavicular adenopathy. RESPIRATORY: Inspiratory breath sounds are of normal intensity in all muir. No rales, wheezes or rhonchi. CARDIOVASCULAR: Rhythm is regular. Normal intensity S1/S2. There is no gallop or murmur. ABDOMEN: The abdomen is nondistended. Ostomy appears healthy. There is stable surrounding herniation that is tender, but remains reducible. Extremities: Stable lower extremity swelling worse on the left. SKIN: Less swelling and edema bilaterally. No sign of cellulitis. 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 ? 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 -She is tolerating OPDIVO treatment very well with significant response of the pelvic melanoma. She is having side effects including iritis and retinitis but the symptoms are stable to improving on local steroid therapy. -Reviewed the results of the most recent CT scans with her. Essentially CR in the pelvis. Continued responding metastatic adenopathy in the pelvis. Plan: -Okay for continued therapy. -Monitor CBC and CMP monthly with treatment -Follow up with wildlife biostation research ecologist as scheduled. -Repeat CT chest abdomen pelvis for restaging in 3 months. ? 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 ? 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 -Presently no vaginal bleeding. Plan: -Continue Eliquis 5 mg twice a day. ? (R10.2) Pelvic pain Assessment/Plan: -Under good control. Plan: -Continue current regimen. (L03.119) recurrent cellulitis and lymphedema lower extremities. Assessment/Plan: -No evidence of cellulitis at present. -Chronic venous stasis and lymphedema Plan: -Continued good skin care with emollients. -Avoid scratches from house. Isidro Estevez DO CNOVSP Observed: 12/03/2017 Status: COMPLETED Source: [place] 9:00 AM [facility] REPOSITORY Visit (SP) Office (HEMDANIELA) KANU AJ ([id number]) 1945 F Date Time Provider Department 12/03/17 9:00 AM ISIDRO ESTEVEZ During your visit today, we recorded the following information about you: Temperature Pulse Blood pressure Weight 98.1 degrees 78/minute 135/61 93.9 kg Kylah Parker LPN, LPN 12/03/2017 9:18 AM Signed Est. Pt. Discuss recent lab results, tx Wednesday SHARIF Dunaway DO 12/03/2017 9:34 AM Signed Diagnoses: 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 3) metastatic vaginal melanoma ? HPI: The patient is a 72 yo female with a PMH significant for DM2, asthma, VTE, and possible mild CKD as well has hysterectomy ~31 yrs ago who presented to [facility] ED 07/2013 with c/o dyspnea. CT chest significant for large b/l PE. One was a saddle embolus draped across the bifurcation of the main pulmonary artery and extending into both the right and left pulmonary artery segments per the CT report. Patient was transferred to [facility]. Not clear if she underwent thrombolysis. ? She recalls being discharged on Xarelto and was maintained on that drug until changed to Eliquis per her PCP. She was on that drug when she underwent work up for abdominal pain 03/2015. Underwent CT A/P 04/16/2015 that showed a large complex mass in the pelvis interpreted as arising from the uterus or an ovary and measuring 14.3 x 13.3 x 12.7 cm. It appeared to be well circumscribed not invading other structures. No evidence metastases elsewhere in abdomen. ? Patient was admitted to [facility] 04/19/2015 for acute left LE small DVT and possible cellulitis of the same leg. She was treated with vancomycin and anticoagulated with Lovenox and transferred to [facility] ([facility]) under the care of a gynecologic oncology surgeon, Dr. Sony Monteiro. ? Underwent surgery 05/03/2015. The final pathology demonstrated that within the RIGHT ovary there was a granulosa cell tumor. The greatest dimension of the ovary was 18 cm. The left fallopian tube was not involved. The omentum was not involved. left ovary and right fallopian tubes were not involved. Tumor was adherent to the left pelvic sidewall. No regional lymph node metastasis was observed. Lymph nodes were removed from the left pelvic, left periaortic areas. Focal angiolymphatic invasion was identified. 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 ? She was discharged to [facility]. Since the time of surgery, she had been having abdominal pain that is sharp and low in abdomen. It crescendos and is partially relieved with a BM. Returns shortly thereafter. Stools were loose and she had been having intermittent nausea with poor appetite. Was transferred to [facility] 05/09/2015 however for low Hgb of 6.1 g/dL. Received transfusion and admitted to [facility]. ? She received a blood transfusion. She was discharged back to the nursing facility and subsequent discharge home. She had been doing home physical therapy. She was making improvements. Initially seen here in plan was for adjuvant chemotherapy once the acute issues were resolved. ? She was admitted to [facility] with hypotension and acute kidney injury on June 17. Serum creatinine was 2.75 mg/dL. She was started on hydration and admitted to the intensive care unit after initiating broad-spectrum antibiotics. Blood cultures remained negative. Urine culture showed 10-50,000 colony-forming units of gram-positive cocci. Patient was transitioned to Levaquin and metronidazole. Creatinine normalized. She was discharged and is now being followed at the wound clinic. ? She underwent excisional debridement of the nonhealing ulcer in the anterior abdominal wall with complex secondary wound closure on 07/18/2015. It was explained to her that 3 layers of sutures are in place. The superficial layer is non-dissolvable whereas the underlying 2 layers are dissolvable. There is a plan for the non-dissolvable sutures to be removed on the through . ? Previous therapy: 1) Adjuvant carbo/paclitaxel x6 cycles completed 12/2015. ? She underwent pelvic exam under anesthesia on 12/04/2016. During the procedure she was observed to have a large approximately 7-8 cm mass in the rectovaginal septum that infiltrated fairly downloaded to the hymenal ring. There was also infiltration along the right vaginal sidewall. Several core biopsies were obtained of the rectovaginal mass in the right vaginal sidewall. ? Areas revealed a poorly differentiated high-grade malignancy suggestive of malignant melanoma. Immunostains were positive for HMB-45, SOX-10 and [place]-1. CD3, CD20, CD45, CD138, inhibin, [place] 8 and S100 were negative. No BRAF mutation. ? Patient was admitted to [facility] for fever and malaise. She was found to have Escherichia coli sepsis. She was treated with broad-spectrum antibiotics. Urine appeared to be the source. She also received a 2 unit red blood cell transfusion. She underwent colonoscopy where in she was found to have extensive involvement of the rectum and was thereafter transferred to [facility]. On initial exam was determined that the tumor was significantly larger than it was on initial exam/biopsy. Therefore she underwent a palliative loop colostomy on 01/05. The patient had an unremarkable postoperative course and was discharged on Eliquis 5 mg twice a day and completed ciprofloxacin 14 days from her negative culture. ? 2) Palliative radiation on 01/26/2017. ? Current therapy: 1) Nivolumab. ? Presents for ongoing oncologic management. ? Interim history: She's been having a lot of flare of allergies and asthma because of reconstruction were going on in her house. A lot of plaster dust all throughout. Otherwise her eyesight has improved. She can read with her left eye. She has trouble with fine print but readers help. She was told by her wildlife biostation research ecologist her some more retinal/macular edema in the right eye and she scheduled to see a specialist at [facility]. Previously this symptom has responded to intraocular steroid injection. She has no other side effect from immunotherapy. She still having a lot of pain and discomfort from the ventral/parastomal hernia. Pelvic pain is under good control presently with her current pain medication regimen. No vaginal bleeding.? ? PMH, medications and allergies as below personally reviewed by me today. Any changes documented in appropriate section. ? ROS: Constitutional: Denies episodes of fever and night sweats. Neuro: Denies TANNER, vertigo, dizziness. HEENT: No recent change in voice, vision or hearing. Resp: Denies cough, wheeze and hemoptysis. Denies shortness of breath at rest. CVS: Denies exertional chest pain, PND, orthopnea. Chronic lower extremity edema stable. GI: Denies symptoms of stomatitis. Denies dysphagia and odynophagia. Denies reflux and nausea. : See above. Endo: Denies hot flashes. Denies polyuria and polydipsia. Denies heat and cold intolerance. Musculoskeletal: Denies bone, back, joint and muscular pain. Derm: Denies rash. Denies diffuse pruritis. Heme: See above. Psych: Normal mood. ? PHYSICAL EXAM: Well-appearing and in no acute distress. performance status 80% BP 135/61 Pulse 78 Temp 98.1 Wt 207 lb (93.9kg) EYES: Sclerae are anicteric bilaterally. Mild conjunctival injection. Eyelashes have lightened in color. NECK: Supple. LYMPHATIC: There is no palpable cervical, supraclavicular adenopathy. RESPIRATORY: Inspiratory breath sounds are of normal intensity in all muir. No rales, wheezes or rhonchi. CARDIOVASCULAR: Rhythm is regular. Normal intensity S1/S2. There is no gallop or murmur. ABDOMEN: The abdomen is nondistended. Ostomy appears healthy. There is stable surrounding herniation that is tender, but remains reducible. Extremities: Stable lower extremity swelling worse on the left. SKIN: Less swelling and edema bilaterally. No sign of cellulitis. 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 ? 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 -She is tolerating OPDIVO treatment very well with significant response of the pelvic melanoma. She is having side effects including iritis and retinitis but the symptoms are stable to improving on local steroid therapy. -Reviewed the results of the most recent CT scans with her. Essentially CR in the pelvis. Continued responding metastatic adenopathy in the pelvis. Plan: -Okay for continued therapy. -Monitor CBC and CMP monthly with treatment -Follow up with wildlife biostation research ecologist as scheduled. -Repeat CT chest abdomen pelvis for restaging in 3 months. ? 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 ? 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 -Presently no vaginal bleeding. Plan: -Continue Eliquis 5 mg twice a day. ? (R10.2) Pelvic pain Assessment/Plan: -Under good control. Plan: -Continue current regimen. (L03.119) recurrent cellulitis and lymphedema lower extremities. Assessment/Plan: -No evidence of cellulitis at present. -Chronic venous stasis and lymphedema Plan: -Continued good skin care with emollients. -Avoid scratches from house. Isidro Estevez DO Referring Provider: ISIDRO ESTEVEZ [[id number]] Allergies As of Date: 12/03/2017 Noted Allergy Reaction ASA (ASPIRIN) 05/09/2015 5 - Intolerance Comments: nose bleeds CLINDAMYCIN 05/09/2015 14 - Other: See Comments Comments: jerking, talking funny DEMEROL (MEPERIDINE (PF)) 05/09/2015 8 - GI Upset IODINE 11/23/2016 9 - Itching MORPHINE 05/09/2015 8 - GI Upset VALIUM (DIAZEPAM) 05/09/2015 8 - GI Upset Date Reviewed: 12/03/2017 Reviewed by: Kylah Villanueva) SHARIF Parker - Fully Assessed Reason for Visit: Established Patient [[id number]] Primary Visit Diagnosis:Vaginal melanoma (HCC) [C52] Other Visit Diagnoses: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) [C78.6] 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) [C56.2] Pain in pelvis [R10.2] Chronic deep vein thrombosis (DVT) of distal vein of left lower extremity (HCC) [I82.5Z2] Lymphedema [I89.0] Order(s):oxyCODONE IR (ROXICODONE) 5 mg immediate release tabletTake 1-2 tablets by mouth every 4 hours as needed for up to 7 days.Disp: 180 tabletRfl: 0 Follow-up and Disposition History Recorded Prescriptions as of 12/03/2017 Sig: OXYCODONE 5 MG TABLET Take 1-2 tablets by mouth morena* DIPHENHYDRAMINE 50 MG CAPSULE Take 1 capsule by mouth as di* OXYCODONE 15 MG TABLET Take 15 mg by mouth every 12 * CHOLECALCIFEROL (VITAMIN D3) * Take 2,000 Units by mouth onc* APIXABAN 5 MG TABLET 1 tablet twice daily. Take 1/* Patient taking differently: 5 mg twice daily. ONDANSETRON HCL 8 MG TABLET Take 1 tablet by mouth every * PHENERGAN ORAL Take by mouth as needed. FUROSEMIDE 40 MG TABLET Take 40 mg by mouth twice jessica* ASCORBIC ACID (VITAMIN C) 1,0* Take 1,000 mg by mouth once d* METFORMIN 500 MG TABLET Take 1/2 tablet by mouth twic* CYANOCOBALAMIN (VIT B-12) 250* Take 1 tablet by mouth once d* CYCLOBENZAPRINE 10 MG TABLET Take 10 mg by mouth daily at * MULTIVITAMIN-IRON 9 MG-FOLIC * Take 1 tablet by mouth once d* CETIRIZINE 10 MG TABLET Take 10 mg by mouth once kaz* ACETAMINOPHEN 325 MG TABLET Take 325 mg by mouth every 6 * ALBUTEROL SULFATE HFA 90 MCG/* Inhale 2 Puffs as instructed * DOXYCYCLINE HYCLATE 100 MG CA* Take 100 mg by mouth twice da* CEPHALEXIN 500 MG CAPSULE Take 500 mg by mouth three ti* Problem List As Of Date 12/03/2017 Noted Resolved 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 Dehydration [E86.0] INVALID FOR* CKD (chronic kidney disease) stage 3, GFR 30-59*INVALID FOR* Lymphedema [I89.0] INVALID FOR* Visit Notes: >> Kylah Parker LPN WedDec 03, 2017 9:03 AM Status: Signed Est. Pt. Discuss recent lab results, tx Wednesday Kylah Parker LPN Encounter Status:Closed by ISIDRO ESTEVEZ DO on 12/03/17 [place] ABS GR + CBC Collected: 12/03/2017 Status: F Source: [place] 8:53 AM [facility] [place] REPOSITORY TYPE CODE TESTS RESULT OUT OF REFERENCE UNITS RANGE LAB WWBC 3.70-11.00 k/uL [place] WBC 5.99 LAB WRBC 3.90-5.20 m/uL [place] RBC 4.01 LAB WHGB 11.5-15.5 g/dL [place] Hemoglobin 12.3 LAB WHCT 36.0-46.0 % [place] Hematocrit 39.1 LAB WMCV 80.0-100.0 fL [place] MCV 97.5 LAB WMCH 26.0-34.0 pg [place] MCH 30.7 LAB WMCHC 30.5-36.0 g/dL [place] MCHC 31.5 LAB WRDW 11.5-15.0 % [place] RDW 13.9 LAB WPLT 150-400 k/uL Low [place] Platelet Cnt 138 LAB WMPV 9.0-12.7 fL [place] MPV 9.7 Result Comment: Test performed at: [facility], [address] [place] [address]. LAB ABGRAN 1.45-7.50 k/uL Absol Gran 4.19 Count COMP METABOLIC PANEL Collected: 12/03/2017 Status: F Source: [place] 8:53 AM [facility] REPOSITORY TYPE CODE TESTS RESULT OUT OF REFERENCE UNITS RANGE LAB TP 6.3-8.0 g/dL Protein, Total 6.7 LAB ALB 3.9-4.9 g/dL Albumin 3.9 LAB CA 8.5-10.2 mg/dL Calcium, Total 9.4 LAB TBIL 0.2-1.3 mg/dL Bilirubin, Total 0.9 LAB ALKP 32-117 U/L Alkaline Phosphatase 87 LAB AST 13-35 U/L AST 15 LAB GLU 74-99 mg/dL Glucose High 144 Result Comment: The [place] Diabetes Association (ADA) provides guidance for cutoff values for fasting glucose and random glucose. The ADA defines fasting as no caloric intake for at least 8 hours. Fas ting plasma glucose results between 100 to 125 mg/dL indicate increased risk for diabetes (prediabetes). Fasting plasma glucose results greater than or equal to 126 mg/dL meet the criteria for diagnosis of diabetes. In the absence of unequivocal hyperglycemia, results should be confirmed by repeat testing. In a patient with classic symptoms of hyperglycemia or hyperglycemic crisis, random plasma glucose results greater than or equal to 200 mg/dL meet the criteria for diagnosis of diabetes. Reference: Standards of Medical Care in Diabetes 2016, [place] [employer] Association. Diabetes Care. 2016.39(Suppl 1). LAB BUN 7-21 mg/dL BUN High 34 LAB CRET 0.58-0.96 mg/dL Creatinine High 1.37 LAB NA 136-144 mmol/L Sodium 140 LAB K 3.7-5.1 mmol/L Potassium 4.1 LAB CL 97-105 mmol/L Chloride 99 LAB CO2 22-30 mmol/L CO2 26 LAB AGAP 9-18 mmol/L Anion Gap 15 LAB ALT 7-38 U/L ALT 12 LAB GFRAA eGFR- Amer. 46 LAB GFRNAA . eGFR-All Other Races 38 Result Comment: eGFR (Estimated GFR) Units of measure: mL/min/1.73 meters squared eGFR is derived from the reexpressed MDRD Study equation using the following parameters: serum creatinine, age, gender and race. The creatinine assay has been calibrated to be traceable to IDMS. An eGFR <60 mL/min/1.73m2 for >3 months is consistent with chronic kidney disease. Refer to KDOQI guidelines for clinical interpretation. In patients with unstable renal function, e.g. those with acute kidney injury, the eGFR may not accurately reflect actual GFR. Performed By: #### CMP #### [facility] [address] [place], [place] [address] PROGRESS Observed: 11/25/2017 Status: COMPLETED Source: [place] 1:36 PM [facility] REPOSITORY HNO ID: [id number] Author: Lena Way (Sw) Service: (none) Author Type: Boring Machine Operator Vertical Type: Progress Notes Filed: 11/25/2017 1:37 PM Note Text: SOCIAL WORK FOLLOW UP NOTE: RUST Date of service: November 25, 2017 Kanu Aj is being seen for a follow up social work visit. Today's visit includes: [employer] motor vehicle field representative TOPICS ADDRESSED: Finances; ROXIE received fax stating patient needs to apply through [employer] for funding before [employer] can assist. ROXIE called [employer] and explained that patient's specific melanoma diagnosis is not covered under the melanoma funds through the [employer]. Patient's application is now being reviewed again with this information by [employer]. PLAN: Continue follow up as needed F/U APPOINTMENT: ADDI Mejia CNSW Observed: 11/25/2017 Status: COMPLETED Source: [place] 12:00 AM [facility] REPOSITORY Social Work (CRUZ) KANU AJ ([id number]) 1945 F Date Time Provider Department 11/25/[address] (SW) During your visit today, we recorded the following information about you: ADDI Jang 11/25/2017 1:37 PM Signed SOCIAL WORK FOLLOW UP NOTE: [facility] Date of service: November 25, 2017 Kanu Aj is being seen for a follow up social work visit. Today's visit includes: [employer] motor vehicle field representative TOPICS ADDRESSED: Finances; ROXIE received fax stating patient needs to apply through [employer] for funding before [employer] can assist. ROXIE called [employer] and explained that patient's specific melanoma diagnosis is not covered under the melanoma funds through the foundation. Patient's application is now being reviewed again with this information by [facility]. PLAN: Continue follow up as needed F/U APPOINTMENT: ADDI Mejia Allergies As of Date: 11/25/2017 Noted Allergy Reaction ASA (ASPIRIN) 05/09/2015 5 - Intolerance Comments: nose bleeds CLINDAMYCIN 05/09/2015 14 - Other: See Comments Comments: jerking, talking funny DEMEROL (MEPERIDINE (PF)) 05/09/2015 8 - GI Upset IODINE 11/23/2016 9 - Itching MORPHINE 05/09/2015 8 - GI Upset VALIUM (DIAZEPAM) 05/09/2015 8 - GI Upset Date Reviewed: 11/22/2017 Reviewed by: Melani Cazares RN, RN - Fully Assessed Reason for Visit: Social Work Services [507] Prescriptions as of 11/25/2017 Sig: OXYCODONE 5 MG TABLET Take 1-2 tablets by mouth morena* DOXYCYCLINE HYCLATE 100 MG CA* Take 100 mg by mouth twice da* CEPHALEXIN 500 MG CAPSULE Take 500 mg by mouth three ti* DIPHENHYDRAMINE 50 MG CAPSULE Take 1 capsule by mouth as di* OXYCODONE 15 MG TABLET Take 15 mg by mouth every 12 * CHOLECALCIFEROL (VITAMIN D3) * Take 2,000 Units by mouth onc* APIXABAN 5 MG TABLET 1 tablet twice daily. Take 1/* Patient taking differently: 5 mg twice daily. ONDANSETRON HCL 8 MG TABLET Take 1 tablet by mouth every * PHENERGAN ORAL Take by mouth as needed. 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 Dehydration [E86.0] INVALID FOR* CKD (chronic kidney disease) stage 3, GFR 30-59*INVALID FOR* Encounter Status:Closed by LENA WAY on 11/25/17 PROGRESS Observed: 11/23/2017 Status: COMPLETED Source: [place] 11:12 AM [facility] REPOSITORY O ID: [id number] Author: Carlyn Croft Service: (none) Author Type: (none) Type: Progress Notes Filed: 11/23/2017 11:13 AM Note Text: Radiology Service Progress Note PATIENT NAME: Kanu Aj DATE OF SERVICE: November 23, 2017 TIME: 11:12 AM PATIENT IDENTITY VERIFICATION COMPLETED USING TWO (2) METHODS: Patient confirmed name verbally and Date of . PATIENT GENDER DATA: Female. status: : No status: NO. PATIENT RELEVANT IMPLANT DATA REVIEWED: Not Applicable CONTRAST INDUCED NEPHROPATHY RISK FACTORS: Patient age > 60 years CREATININE: Creatinine Date Value Ref Range Status 11/22/2017 1.72 (H) 0.58 - 0.96 mg/dL Final 11/08/2017 1.38 (H) 0.58 - 0.96 mg/dL Final 10/22/2017 1.50 (H) 0.58 - 0.96 mg/dL Final eGFR-All Other Races Date Value Ref Range Status 11/22/2017 29 . Final Comment: eGFR (Estimated GFR) Units of measure: mL/min/1.73 meters squared eGFR is derived from the reexpressed MDRD Study equation using the following parameters: serum creatinine, age, gender and race. The creatinine assay has been calibrated to be traceable to IDMS. An eGFR <60 mL/min/1.73m2 for >3 months is consistent with chronic kidney disease. Refer to KDOQI guidelines for clinical interpretation. In patients with unstable renal function, e.g. those with acute kidney injury, the eGFR may not accurately reflect actual GFR. eGFR- Date Value Ref Range Status 11/22/2017 35 Final P.O.C.T. RESULTS: POC done: Yes, See Lab Tab November 23, 2017 RADIOLOGIST NOTIFIED?: Yes IV Hydration: Normal Saline solution 500 ml over 1 hours. ALLERGIES: Reviewed and unchanged CONTRAST ALLERGY: NO. PERIPHERAL IV ACCESS: Ambulatory: IV type: Existing peripheral IV utilized, Site assessment: Clean,Dry and Intact, Site disposition Discontinued RADIOLOGY DEPARTMENT: CT; Exam(s) Completed: Chest Abdomen Pelvis SIGNED BY: Carlyn Mooney Ct November 23, 2017 11:[address] ABD/PEL W IVCON Observed: 11/23/2017 Status: F Source: [place] 10:11 AM [facility] REPOSITORY * * *Final Report* * * DATE OF EXAM: Nov 23 2017 10:11AM [facility] 0530 - CT ABD/PEL W IVCON / PROCEDURE REASON: multiple diagnoses * * * * Physician Interpretation * * * * EXAMINATION: CT ABDOMEN AND PELVIS WITH IV CONTRAST CLINICAL HISTORY: Malignant melanoma and ovarian cancer follow-up TECHNIQUE: CT of the abdomen and pelvis was performed using standard technique, scanning from just above the dome of the diaphragm to the symphysis pubis. MQ: CTAP_3 Contrast: IV: 108 ml of Omnipaque 300 Oral: 900 ml of 50ML Omnipaque [address] Radiation dose: Integrated Dose-length product (DLP) for this visit = 1082 mGy*cm. CT Dose Reduction Employed: mAs-kVp adjusted based on patient size-age COMPARISON: 07/28/2017 RESULT: Liver: No mass. Biliary: No bile duct dilation. Cholecystectomy. Spleen: No mass. No splenomegaly. Pancreas: 1 cm cystic lesion arising from the tail of the pancreas (5:30) is unchanged from 11/23/2016 and likely a side branch intraductal papillary mucinous neoplasm. No other pancreatic mass or duct dilation. Adrenals: No mass. Kidneys: Stable small bilaterally nonobstructing renal calculi. 1.2 cm ill-defined hypodense lesion in the RIGHT kidney (5:66) is unchanged in size from most recent comparison but measured 1 cm on 11/23/2016 and 06/24/2015, at which time it had more the appearance of a simple cyst. No new renal lesions or hydronephrosis. GI tract: No dilation or wall thickening. Lymph nodes: Index lymph nodes as follows: * 1.0 x 0.9 cm RIGHT common iliac chain lymph node (5:93), stable * 1.1 x 1.1 cm LEFT posterior external iliac chain lymph node (5:118), unchanged * 2.1 x 1.8 cm RIGHT posterior external iliac chain lymph node is no longer present 1.3 x 1.2 cm * RIGHT anterior external iliac chain lymph node is obscured by artifact Mesentery/Peritoneum: No ascites or mass. There is a large ventral hernia containing unobstructed large and small bowel. The hernia orifice is wide, measuring 6.8 cm. Retroperitoneum: No mass. Vasculature: Small stable thrombus above the IVC filter (5:48). The celiac axis and SMA are patent. The portal vein and branches, splenic vein, SMV, and hepatic veins are patent. No aortic aneurysm. Pelvis: Artifact from RIGHT hip prosthesis degrades images of the lower pelvis. No mass, ascites or fluid collection. Bones/Soft Tissues: Degenerative changes in the spine. Mild anterolisthesis of L4 on L5. No neoplastic bone disease. Lower thorax: A chest CT was performed and will be reported separately. IMPRESSION: PREVIOUSLY SEEN BORDERLINE TO MILDLY ENLARGED LYMPH NODES ARE EITHER STABLE OR DECREASED IN SIZE NO NEW METASTATIC DISEASE STABLE SMALL THROMBUS ABOVE THE IVC FILTER Medical Front Desk Coordinator: DYLLAN Transcribe Date/Time: Nov 23 2017 1:24P Dictated by : CATHY DAWSON MD This examination was interpreted and the report reviewed and electronically signed by: CATHY DAWSON MD on Nov 23 2017 1:38PM EST [id number] CT CHEST W IVCON Observed: 11/23/2017 Status: F Source: [place] 10:11 AM [facility] REPOSITORY * * *Final Report* * * DATE OF EXAM: Nov 23 2017 10:11AM [facility] 0539 - CT CHEST W IVCON / PROCEDURE REASON: multiple diagnoses * * * * Physician Interpretation * * * * EXAMINATION: CHEST CT WITH CONTRAST Indication: Malignant melanoma of skin, unspecified Malignant neoplasm of left ovary 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 M: CTCW_3 Contrast: 108 mL Omnipaque [address] Dose-Length Product: 1082 mGy*cm CT Dose Reduction Employed: mAs-kVp adjusted based on patient size-age Comparison: 07/28/2017 RESULT: LIMITATIONS: None. LINES, TUBES, AND DEVICES: None. THORACIC INLET, HEART, AND MEDIASTINUM: No lymphadenopathy in the axillary, mediastinal, or hilar regions. The thoracic aorta and main pulmonary artery are normal in caliber. The cardiac chambers are normal in size. No pericardial effusion or thickening. LUNG PARENCHYMA AND PLEURA: No consolidation or pleural effusion. Stable left lower lobe atelectasis/scarring. Smaller areas of atelectasis/scarring within the right lower lobe and lingula. No suspicious pulmonary nodule. Central airways are patent. BONES AND SOFT TISSUES: No destructive bone lesion. Chest wall is unremarkable. . IMPRESSION: Stable appearance of the chest with no evidence for metastatic disease. Stable areas of atelectasis/scarring most pronounced within the left lower lobe. Medical Front Desk Coordinator: DYLLAN Transcribe Date/Time: Nov 23 2017 3:43P Dictated by : LAMIN ASIF MD This examination was interpreted and the report reviewed and electronically signed by: LAMIN ASIF MD on Nov 23 2017 3:46PM EST [id number] PROGRESS Observed: 11/23/2017 Status: COMPLETED Source: [place] 8:19 AM [facility] REPOSITORY HNO ID: [id number] Author: Lena Way (Sw) Service: (none) Author Type: Boring Machine Operator Vertical Type: Progress Notes Filed: 11/23/2017 8:20 AM Note Text: SOCIAL WORK FOLLOW UP NOTE: [facility] Date of service: November 23, 2017 Kanu Aj is being seen for a follow up social work visit. Today's visit includes: patient TOPICS ADDRESSED: Finances; ROXIE faxed application to [facility] and informed patient this has been done. Copy sent to scanning. PLAN: Assist with financial support applications and Continue follow up as needed F/U APPOINTMENT: ADDI Mejia CNSW Observed: 11/23/2017 Status: COMPLETED Source: [place] 12:00 AM [facility] REPOSITORY Social Work (HEMAWS) KANU AJ ([id number]) 1945 F Date Time Provider Department 11/23/[address] (ROXIE) [place] During your visit today, we recorded the following information about you: ADDI Jang 11/23/2017 8:20 AM Signed SOCIAL WORK FOLLOW UP NOTE: [facility] Date of service: November 23, 2017 Kanu Aj is being seen for a follow up social work visit. Today's visit includes: patient TOPICS ADDRESSED: Finances; ROXIE faxed application to [employer] and informed patient this has been done. Copy sent to scanning. PLAN: Assist with financial support applications and Continue follow up as needed F/U APPOINTMENT: ADDI Mejia Allergies As of Date: 11/23/2017 Noted Allergy Reaction ASA (ASPIRIN) 05/09/2015 5 - Intolerance Comments: nose bleeds CLINDAMYCIN 05/09/2015 14 - Other: See Comments Comments: jerking, talking funny DEMEROL (MEPERIDINE (PF)) 05/09/2015 8 - GI Upset IODINE 11/23/2016 9 - Itching MORPHINE 05/09/2015 8 - GI Upset VALIUM (DIAZEPAM) 05/09/2015 8 - GI Upset Date Reviewed: 11/22/2017 Reviewed by: Melani Cazares, RN, RN - Fully Assessed Reason for Visit: Social Work Services [507] Prescriptions as of 11/23/2017 Sig: OXYCODONE 5 MG TABLET Take 1-2 tablets by mouth morena* DOXYCYCLINE HYCLATE 100 MG CA* Take 100 mg by mouth twice da* CEPHALEXIN 500 MG CAPSULE Take 500 mg by mouth three ti* DIPHENHYDRAMINE 50 MG CAPSULE Take 1 capsule by mouth as di* OXYCODONE 15 MG TABLET Take 15 mg by mouth every 12 * CHOLECALCIFEROL (VITAMIN D3) * Take 2,000 Units by mouth onc* APIXABAN 5 MG TABLET 1 tablet twice daily. Take 1/* Patient taking differently: 5 mg twice daily. ONDANSETRON HCL 8 MG TABLET Take 1 tablet by mouth every * PHENERGAN ORAL Take by mouth as needed. 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 Encounter Status:Closed by LENA WAY on 11/23/17 PROGRESS Observed: 11/22/2017 Status: COMPLETED Source: [place] 11:36 AM [facility] [place] REPOSITORY O ID: [id number] Author: Lena (RoxieHarini Way Service: (none) Author Type: Boring Machine Operator Vertical Type: Progress Notes Filed: 11/22/2017 11:37 AM Note Text: SOCIAL WORK FOLLOW UP NOTE: [facility] Date of service: November 22, 2017 Kanu Aj is being seen for a follow up social work visit. Today's visit includes: patient TOPICS ADDRESSED: Finances; SW met with patient to complete application. SW provided to doctor to review/sign. SW will fax to [employer] when returned. PLAN: Assist with financial support applications and Continue follow up as needed F/U APPOINTMENT: ADDI Mejia ABS GR + CBC Collected: 11/22/2017 Status: F Source: [place] 11:09 AM [facility] REPOSITORY TYPE CODE TESTS RESULT OUT OF REFERENCE UNITS RANGE LAB WWBC 3.70-11.00 k/uL [place] WBC 5.97 LAB WRBC 3.90-5.20 m/uL [place] RBC 3.98 LAB WHGB 11.5-15.5 g/dL [place] Hemoglobin 12.1 LAB WHCT 36.0-46.0 % [place] Hematocrit 38.7 LAB WMCV 80.0-100.0 fL [place] MCV 97.2 LAB WMCH 26.0-34.0 pg [place] MCH 30.4 LAB WMCHC 30.5-36.0 g/dL [place] MCHC 31.3 LAB WRDW 11.5-15.0 % [place] RDW 14.0 LAB WPLT 150-400 k/uL [place] Platelet Cnt 159 LAB WMPV 9.0-12.7 fL [place] MPV 9.9 Result Comment: Test performed at: [facility], [address] [place] [address] Rd[address] [place] [address]. LAB ABGRAN 1.45-7.50 k/uL Absol Gran 4.56 Count COMP METABOLIC PANEL Collected: 11/22/2017 Status: F Source: [place] 11:09 AM [facility] REPOSITORY TYPE CODE TESTS RESULT OUT OF REFERENCE UNITS RANGE LAB TP 6.3-8.0 g/dL Protein, Total 7.0 LAB ALB 3.9-4.9 g/dL Albumin 3.9 LAB CA 8.5-10.2 mg/dL Calcium, Total 9.3 LAB TBIL 0.2-1.3 mg/dL Bilirubin, Total 0.8 LAB ALKP 32-117 U/L Alkaline Phosphatase 84 LAB AST 13-35 U/L AST 20 LAB GLU 74-99 mg/dL Glucose High 127 Result Comment: The [place] Diabetes Association (ADA) provides guidance for cutoff values for fasting glucose and random glucose. The ADA defines fasting as no caloric intake for at least 8 hours. Fas ting plasma glucose results between 100 to 125 mg/dL indicate increased risk for diabetes (prediabetes). Fasting plasma glucose results greater than or equal to 126 mg/dL meet the criteria for diagnosis of diabetes. In the absence of unequivocal hyperglycemia, results should be confirmed by repeat testing. In a patient with classic symptoms of hyperglycemia or hyperglycemic crisis, random plasma glucose results greater than or equal to 200 mg/dL meet the criteria for diagnosis of diabetes. Reference: Standards of Medical Care in Diabetes 2016, [place] [employer]. Diabetes Care. 2016.39(Suppl 1). LAB BUN 7-21 mg/dL BUN High 35 LAB CRET 0.58-0.96 mg/dL Creatinine High 1.72 LAB NA 136-144 mmol/L Sodium 143 LAB K 3.7-5.1 mmol/L Potassium 4.3 LAB CL 97-105 mmol/L Chloride 102 LAB CO2 22-30 mmol/L CO2 26 LAB AGAP 9-18 mmol/L Anion Gap 15 LAB ALT 7-38 U/L ALT 21 LAB GFRAA eGFR- Amer. 35 LAB GFRNAA . eGFR-All Other Races 29 Result Comment: eGFR (Estimated GFR) Units of measure: mL/min/1.73 meters squared eGFR is derived from the reexpressed MDRD Study equation using the following parameters: serum creatinine, age, gender and race. The creatinine assay has been calibrated to be traceable to IDMS. An eGFR <60 mL/min/1.73m2 for >3 months is consistent with chronic kidney disease. Refer to KDOQI guidelines for clinical interpretation. In patients with unstable renal function, e.g. those with acute kidney injury, the eGFR may not accurately reflect actual GFR. Performed By: #### CMP #### [facility] [address] [place], [place] [address] CNSW Observed: 11/22/2017 Status: COMPLETED Source: [place] 12:00 AM [facility] MELA Sciences Work ([employer]) JEAN MARIEKANU Jenkins ([id number]) 1945 F Date Time Provider Department 11/22/[address] (SW) During your visit today, we recorded the following information about you: ADDI Jang 11/22/2017 11:37 AM Signed SOCIAL WORK FOLLOW UP NOTE: [facility] Date of service: November 22, 2017 Kanu Aj is being seen for a follow up social work visit. Today's visit includes: patient TOPICS ADDRESSED: Finances; ROXIE met with patient to complete application. ROXIE provided to doctor to review/sign. ROXIE will fax to [employer] when returned. PLAN: Assist with financial support applications and Continue follow up as needed F/U APPOINTMENT: PRN ADDI Jang Allergies As of Date: 11/22/2017 Noted Allergy Reaction ASA (ASPIRIN) 05/09/2015 5 - Intolerance Comments: nose bleeds CLINDAMYCIN 05/09/2015 14 - Other: See Comments Comments: jerking, talking funny DEMEROL (MEPERIDINE (PF)) 05/09/2015 8 - GI Upset IODINE 11/23/2016 9 - Itching MORPHINE 05/09/2015 8 - GI Upset VALIUM (DIAZEPAM) 05/09/2015 8 - GI Upset Date Reviewed: 11/22/2017 Reviewed by: Melani Cazares, RN, RN - Fully Assessed Reason for Visit: Social Work Services [507] Cmt: patient assistance Prescriptions as of 11/22/2017 Sig: OXYCODONE 5 MG TABLET Take 1-2 tablets by mouth morena* DOXYCYCLINE HYCLATE 100 MG CA* Take 100 mg by mouth twice da* CEPHALEXIN 500 MG CAPSULE Take 500 mg by mouth three ti* DIPHENHYDRAMINE 50 MG CAPSULE Take 1 capsule by mouth as di* OXYCODONE 15 MG TABLET Take 15 mg by mouth every 12 * CHOLECALCIFEROL (VITAMIN D3) * Take 2,000 Units by mouth onc* APIXABAN 5 MG TABLET 1 tablet twice daily. Take 1/* Patient taking differently: 5 mg twice daily. ONDANSETRON HCL 8 MG TABLET Take 1 tablet by mouth every * PHENERGAN ORAL Take by mouth as needed. 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 Encounter Status:Closed by LENA WAY on 11/22/17 PROGRESS Observed: 11/19/2017 Status: COMPLETED Source: [place] 1:48 PM [facility] [place] REPOSITORY O ID: [id number] Author: Lena Escalante) Nawaf Service: (none) Author Type: Boring Machine Operator Vertical Type: Progress Notes Filed: 11/19/2017 1:52 PM Note Text: Social Work Problem Referral Note INFORMATION/REFERRAL : Kanu Aj 72 year old female was referred by financial counselor to [facility] for the following reason(s): financial assistance - meals, parking, etc. PERSONS INTERVIEWED: patient and financial counselor and financial navigator and pharmacist INTERVENTION: Information AND Referral Service Co-ordination Affect/Mood: The patient is noted as distressed IDENTIFIED PROBLEMS/NEEDS: Financial Intervention/Referral to be provided:Arrangements made for continuity of care Financial: Applications(s) sent to: Other: Application will be sent to [facility] IMPRESSION/PLAN: ROXIE met with patient to discuss patient assistance options for Opdivo. ROXIE worked with Financial Navigator to look into [facility], [facility], [facility] and [facility]. None of these options provided assistance for patient's diagnosis. ROXIE contacted [employer], who stated they do offer a program for individuals with Medicare. They will fax SW the correct application to apply for this. ROXIE left patient a message (she had left at this point) and stated we would complete this application when she comes for treatment on Wednesday. ROXIE updated pharmacy staff on this matter as well. F/U APPOINTMENT: ADDI Mejia CNSW Observed: 11/19/2017 Status: COMPLETED Source: [place] 12:00 AM [facility] REPOSITORY Social Work (CRUZ) KANU AJ ([id number]) 1945 F Date Time Provider Department 11/19/[address]) [facility] During your visit today, we recorded the following information about you: ADDI Jang 11/19/2017 1:52 PM Signed Social Work Problem Referral Note INFORMATION/REFERRAL : Kanu Aj 72 year old female was referred by financial counselor to [facility] Work for the following reason(s): financial assistance - meals, parking, etc. PERSONS INTERVIEWED: patient and financial counselor and financial navigator and pharmacist INTERVENTION: Information AND Referral Service Co-ordination Affect/Mood: The patient is noted as distressed IDENTIFIED PROBLEMS/NEEDS: Financial Intervention/Referral to be provided:Arrangements made for continuity of care Financial: Applications(s) sent to: Other: Application will be sent to [facility] IMPRESSION/PLAN: SW met with patient to discuss patient assistance options for Opdivo. ROXIE worked with Financial Navigator to look into [facility], [facility], [facility] and [facility]. None of these options provided assistance for patient's diagnosis. ROXIE contacted [employer], who stated they do offer a program for individuals with Medicare. They will fax SW the correct application to apply for this. SW left patient a message (she had left at this point) and stated we would complete this application when she comes for treatment on Wednesday. ROXIE updated pharmacy staff on this matter as well. F/U APPOINTMENT: ADDI Mejia Allergies As of Date: 11/19/2017 Noted Allergy Reaction ASA (ASPIRIN) 05/09/2015 5 - Intolerance Comments: nose bleeds CLINDAMYCIN 05/09/2015 14 - Other: See Comments Comments: jerking, talking funny DEMEROL (MEPERIDINE (PF)) 05/09/2015 8 - GI Upset IODINE 11/23/2016 9 - Itching MORPHINE 05/09/2015 8 - GI Upset VALIUM (DIAZEPAM) 05/09/2015 8 - GI Upset Date Reviewed: 11/18/2017 Reviewed by: Carlyn Mooney Ct - Fully Assessed Reason for Visit: Social Work Services [507] Prescriptions as of 11/19/2017 Sig: OXYCODONE 5 MG TABLET Take 1-2 tablets by mouth morena* DOXYCYCLINE HYCLATE 100 MG CA* Take 100 mg by mouth twice da* CEPHALEXIN 500 MG CAPSULE Take 500 mg by mouth three ti* DIPHENHYDRAMINE 50 MG CAPSULE Take 1 capsule by mouth as di* OXYCODONE 15 MG TABLET Take 15 mg by mouth every 12 * CHOLECALCIFEROL (VITAMIN D3) * Take 2,000 Units by mouth onc* APIXABAN 5 MG TABLET 1 tablet twice daily. Take 1/* Patient taking differently: 5 mg twice daily. ONDANSETRON HCL 8 MG TABLET Take 1 tablet by mouth every * PHENERGAN ORAL Take by mouth as needed. 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 Encounter Status:Closed by LENA WAY on 11/19/17 [place] ABS GR + CBC Collected: 11/08/2017 Status: F Source: [place] 10:45 AM [facility] REPOSITORY TYPE CODE TESTS RESULT OUT OF REFERENCE UNITS RANGE LAB WWBC 3.70-11.00 k/uL [place] WBC 6.24 LAB WRBC 3.90-5.20 m/uL [place] RBC 4.18 LAB WHGB 11.5-15.5 g/dL [place] Hemoglobin 12.5 LAB WHCT 36.0-46.0 % [place] Hematocrit 40.0 LAB WMCV 80.0-100.0 fL [place] MCV 95.7 LAB WMCH 26.0-34.0 pg [place] MCH 29.9 LAB WMCHC 30.5-36.0 g/dL [place] MCHC 31.3 LAB WRDW 11.5-15.0 % [place] RDW 14.1 LAB WPLT 150-400 k/uL Low [place] Platelet Cnt 133 LAB WMPV 9.0-12.7 fL [place] MPV 9.4 Result Comment: Test performed at: [facility] [place], [address] [place] [address]. LAB ABGRAN 1.45-7.50 k/uL Absol Gran 4.87 Count COMP METABOLIC PANEL Collected: 11/08/2017 Status: F Source: [place] 10:45 AM [facility] REPOSITORY TYPE CODE TESTS RESULT OUT OF REFERENCE UNITS RANGE LAB TP 6.3-8.0 g/dL Protein, Total 7.0 LAB ALB 3.9-4.9 g/dL Albumin 4.0 LAB CA 8.5-10.2 mg/dL Calcium, Total 9.2 LAB TBIL 0.2-1.3 mg/dL Bilirubin, Total 0.8 LAB ALKP 32-117 U/L Alkaline Phosphatase 96 LAB AST 13-35 U/L AST 22 LAB GLU 74-99 mg/dL Glucose High 137 Result Comment: The [place] Diabetes Association (ADA) provides guidance for cutoff values for fasting glucose and random glucose. The ADA defines fasting as no caloric intake for at least 8 hours. Fas ting plasma glucose results between 100 to 125 mg/dL indicate increased risk for diabetes (prediabetes). Fasting plasma glucose results greater than or equal to 126 mg/dL meet the criteria for diagnosis of diabetes. In the absence of unequivocal hyperglycemia, results should be confirmed by repeat testing. In a patient with classic symptoms of hyperglycemia or hyperglycemic crisis, random plasma glucose results greater than or equal to 200 mg/dL meet the criteria for diagnosis of diabetes. Reference: Standards of Medical Care in Diabetes 2016, [place] Diabetes Association. Diabetes Care. 2016.39(Suppl 1). LAB BUN 7-21 mg/dL BUN High 26 LAB CRET 0.58-0.96 mg/dL Creatinine High 1.38 LAB NA 136-144 mmol/L Sodium 141 LAB K 3.7-5.1 mmol/L Potassium 4.0 LAB CL 97-105 mmol/L Chloride 99 LAB CO2 22-30 mmol/L CO2 25 LAB AGAP 9-18 mmol/L Anion Gap 17 LAB ALT 7-38 U/L ALT 19 LAB GFRAA eGFR- Amer. 45 LAB GFRNAA . eGFR-All Other Races 38 Result Comment: eGFR (Estimated GFR) Units of measure: mL/min/1.73 meters squared eGFR is derived from the reexpressed MDRD Study equation using the following parameters: serum creatinine, age, gender and race. The creatinine assay has been calibrated to be traceable to IDMS. An eGFR <60 mL/min/1.73m2 for >3 months is consistent with chronic kidney disease. Refer to KDOQI guidelines for clinical interpretation. In patients with unstable renal function, e.g. those with acute kidney injury, the eGFR may not accurately reflect actual GFR. 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 3) metastatic vaginal melanoma ? HPI: The patient is a 71 yo female with a PMH significant for DM2, asthma, VTE, and possible mild CKD as well has hysterectomy ~31 yrs ago who presented to [facility] ED 07/2013 with c/o dyspnea. CT chest significant for large b/l PE. One was a saddle embolus draped across the bifurcation of the main pulmonary artery and extending into both the right and left pulmonary artery segments per the CT report. Patient was transferred to [facility]. Not clear if she underwent thrombolysis. ? She recalls being discharged on Xarelto and was maintained on that drug until changed to Eliquis per her PCP. She was on that drug when she underwent work up for abdominal pain 03/2015. Underwent CT A/P 04/16/2015 that showed a large complex mass in the pelvis interpreted as arising from the uterus or an ovary and measuring 14.3 x 13.3 x 12.7 cm. It appeared to be well circumscribed not invading other structures. No evidence metastases elsewhere in abdomen. ? Patient was admitted to [facility] 04/19/2015 for acute left LE small DVT and possible cellulitis of the same leg. She was treated with vancomycin and anticoagulated with Lovenox and transferred to [facility] under the care of a gynecologic oncology surgeon, Dr. Sony Monteiro. ? Underwent surgery 05/03/2015. The final pathology demonstrated that within the RIGHT ovary there was a granulosa cell tumor. The greatest dimension of the ovary was 18 cm. The left fallopian tube was not involved. The omentum was not involved. left ovary and right fallopian tubes were not involved. Tumor was adherent to the left pelvic sidewall. No regional lymph node metastasis was observed. Lymph nodes were removed from the left pelvic, left periaortic areas. Focal angiolymphatic invasion was identified. 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 ? She was discharged to [facility]. Since the time of surgery, she had been having abdominal pain that is sharp and low in abdomen. It crescendos and is partially relieved with a BM. Returns shortly thereafter. Stools were loose and she had been having intermittent nausea with poor appetite. Was transferred to [facility] 05/09/2015 however for low Hgb of 6.1 g/dL. Received transfusion and admitted to [facility]. ? She received a blood transfusion. She was discharged back to the nursing facility and subsequent discharge home. She had been doing home physical therapy. She was making improvements. Initially seen here in plan was for adjuvant chemotherapy once the acute issues were resolved. ? She was admitted to [facility] with hypotension and acute kidney injury on June 17. Serum creatinine was 2.75 mg/dL. She was started on hydration and admitted to the intensive care unit after initiating broad-spectrum antibiotics. Blood cultures remained negative. Urine culture showed 10-50,000 colony-forming units of gram-positive cocci. Patient was transitioned to Levaquin and metronidazole. Creatinine normalized. She was discharged and is now being followed at the wound clinic. ? She underwent excisional debridement of the nonhealing ulcer in the anterior abdominal wall with complex secondary wound closure on 07/18/2015. It was explained to her that 3 layers of sutures are in place. The superficial layer is non-dissolvable whereas the underlying 2 layers are dissolvable. There is a plan for the non-dissolvable sutures to be removed on the through . ? Previous therapy: 1) Adjuvant carbo/paclitaxel x6 cycles completed 12/2015. ? She underwent pelvic exam under anesthesia on 12/04/2016. During the procedure she was observed to have a large approximately 7- 8 cm mass in the rectovaginal septum that infiltrated fairly downloaded to the hymenal ring. There was also infiltration along the right vaginal sidewall. Several core biopsies were obtained of the rectovaginal mass in the right vaginal sidewall. ? Areas revealed a poorly differentiated high-grade malignancy suggestive of malignant melanoma. Immunostains were positive for HMB-45, SOX-10 and [place]-1. CD3, CD20, CD45, CD138, inhibin, [place] 8 and S100 were negative. No BRAF mutation. ? Patient was admitted to [facility] for fever and malaise. She was found to have Escherichia coli sepsis. She was treated with broad-spectrum antibiotics. Urine appeared to be the source. She also received a 2 unit red blood cell transfusion. She underwent colonoscopy where in she was found to have extensive involvement of the rectum and was thereafter transferred to [facility]. On initial exam was determined that the tumor was significantly larger than it was on initial exam/biopsy. Therefore she underwent a palliative loop colostomy on 01/05. The patient had an unremarkable postoperative course and was discharged on Eliquis 5 mg twice a day and completed ciprofloxacin 14 days from her negative culture. ? 2) Palliative radiation on 01/26/2017. ? Current therapy: 1) Nivolumab. ? Presents for ongoing oncologic management. ? Interim history: Since last seen, she was discharged home last week for cellulitis of both legs. She has completed her course of antibiotic and there is still some swelling of the leg but the cellulitis this has resolved. she denies any excessive fatigue, appetite AND her weight is down since her hospital admission. ? She reports that otherwise she's been feeling very well. She is able to read and she feels like her vision hasn't subjectively improved. She denies nausea, vomiting or diarrhea. However, she is having a lot of discomfort from the ostomy herniation. It's not constant pain. Her pelvic pain is under good control but she has flares of pain whenever she passes some of the rectal mucus. She is urinating well with no outlet obstructive symptoms, dysuria or gross hematuria. She's had no further vaginal bleeding. She is seeking surgical options for management of her ventral hernia. ? ? PMH, medications and allergies as below personally reviewed by me today. Any changes documented in appropriate section. ? ROS: Constitutional: Denies episodes of fever and night sweats. Neuro: Denies TANNER, vertigo, dizziness. HEENT: No recent change in voice, vision or hearing. Resp: Denies cough, wheeze and hemoptysis. Denies shortness of breath at rest. CVS: Denies exertional chest pain, PND, orthopnea. Chronic lower extremity edema stable. GI: Denies symptoms of stomatitis. Denies dysphagia and odynophagia. Denies reflux and nausea. : See above. Endo: Denies hot flashes. Denies polyuria and polydipsia. Denies heat and cold intolerance. Musculoskeletal: Denies bone, back, joint and muscular pain. Derm: Denies rash. Denies diffuse pruritis. Heme: See above. Psych: Normal mood. ? PHYSICAL EXAM: Well-appearing and in no acute distress. performance status 80% BP 139/75 Pulse 84 Temp (Src) 98.5 (Oral) Wt 198 lb 8 oz (90.0kg) EYES: Sclerae are anicteric bilaterally. Mild conjunctival injection. Eyelashes have lightened in color. NECK: Supple. LYMPHATIC: There is no palpable cervical, supraclavicular adenopathy. RESPIRATORY: Inspiratory breath sounds are of normal intensity in all muir. No rales, wheezes or rhonchi. CARDIOVASCULAR: Rhythm is regular. Normal intensity S1/S2. There is no gallop or murmur. ABDOMEN: The abdomen is nondistended. Ostomy appears healthy. There is stable surrounding herniation, but more tenderness. Remains reducible however. Extremities: Stable lower extremity swelling worse on the left. SKIN: Less swelling and edema bilaterally. No sign of cellulitis. 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 ? LABS: Component Latest Ref Rng AND Units 10/22/2017 WBC, [place] 3.70 - 11.00 k/uL 6.29 RBC, [place] 3.90 - 5.20 m/uL 4.31 Hemoglobin, [place] 11.5 - 15.5 g/dL 12.9 Hematocrit, [place] 36.0 - 46.0 % 40.9 MCV, [place] 80.0 - 100.0 fL 94.9 MCH, [place] 26.0 - 34.0 pg 29.9 MCHC, [place] 30.5 - 36.0 g/dL 31.5 RDW, [place] 11.5 - 15.0 % 13.9 Platelet Cnt, [place] 150 - 400 k/uL 200 MPV, [place] 9.0 - 12.7 fL 9.3 Absol Gran Count 1.45 - 7.50 k/uL 4.36 Component Latest Ref Rng AND Units 10/22/2017 Protein, Total 6.3 - 8.0 g/dL 7.1 Albumin 3.9 - 4.9 g/dL 4.0 Calcium 8.5 - 10.2 mg/dL 9.5 Bilirubin, Total 0.2 - 1.3 mg/dL 0.8 Alkaline Phosphatase 32 - 117 U/L 92 AST 13 - 35 U/L 21 Glucose 74 - 99 mg/dL 148 (H) BUN 7 - 21 mg/dL 40 (H) Creatinine 0.58 - 0.96 mg/dL 1.50 (H) Sodium 136 - 144 mmol/L 139 Potassium 3.7 - 5.1 mmol/L 3.6 (L) Chloride 97 - 105 mmol/L 95 (L) CO2 22 - 30 mmol/L 31 (H) Anion Gap 9 - 18 mmol/L 13 ALT 7 - 38 U/L 17 eGFR- 41 eGFR-All Other Races . 34 LD 135 - 214 U/L 216 (H) ASSESSMENT/PLAN: (C52) Melanoma of vagina (HCC) (primary encounter diagnosis) Assessment/Plan: -KPS is 80%. -She is tolerating OPDIVO treatment very well with significant response of the pelvic melanoma. She is having side effects including iritis and retinitis but the symptoms are stable to improving on local steroid therapy. Plan: -Okay for continued therapy. -Monitor CBC and CMP monthly with treatment -Follow up with wildlife biostation research ecologist a schedule. -Repeat CT chest abdomen pelvis for restaging in 6 weeks. ? 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 ? 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 -Presently no vaginal bleeding. Plan: -Continue Eliquis 5 mg twice a day. ? (R10.2) Pelvic pain Assessment/Plan: -Under good control. Plan: -Continue current regimen. (L03.119) recurrent cellulitis and lymphedema lower extremities. Assessment/Plan: -Under good control AND cellulitis improved -Chronic venous stasis and lymphedema Plan: - lotion and discussed skin care - elevate legs Liliya Magana MD Cc: Dr. 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 3) metastatic vaginal melanoma ? HPI: The patient is a 71 yo female with a PMH significant for DM2, asthma, VTE, and possible mild CKD as well has hysterectomy ~31 yrs ago who presented to [facility] ED 07/2013 with c/o dyspnea. CT chest significant for large b/l PE. One was a saddle embolus draped across the bifurcation of the main pulmonary artery and extending into both the right and left pulmonary artery segments per the CT report. Patient was transferred to [facility]. Not clear if she underwent thrombolysis. ? She recalls being discharged on Xarelto and was maintained on that drug until changed to Eliquis per her PCP. She was on that drug when she underwent work up for abdominal pain 03/2015. Underwent CT A/P 04/16/2015 that showed a large complex mass in the pelvis interpreted as arising from the uterus or an ovary and measuring 14.3 x 13.3 x 12.7 cm. It appeared to be well circumscribed not invading other structures. No evidence metastases elsewhere in abdomen. ? Patient was admitted to [facility] 04/19/2015 for acute left LE small DVT and possible cellulitis of the same leg. She was treated with vancomycin and anticoagulated with Lovenox and transferred to [facility] under the care of a gynecologic oncology surgeon, Dr. Sony Monteiro. ? Underwent surgery 05/03/2015. The final pathology demonstrated that within the RIGHT ovary there was a granulosa cell tumor. The greatest dimension of the ovary was 18 cm. The left fallopian tube was not involved. The omentum was not involved. left ovary and right fallopian tubes were not involved. Tumor was adherent to the left pelvic sidewall. No regional lymph node metastasis was observed. Lymph nodes were removed from the left pelvic, left periaortic areas. Focal angiolymphatic invasion was identified. 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 ? She was discharged to [facility]. Since the time of surgery, she had been having abdominal pain that is sharp and low in abdomen. It crescendos and is partially relieved with a BM. Returns shortly thereafter. Stools were loose and she had been having intermittent nausea with poor appetite. Was transferred to [facility] 05/09/2015 however for low Hgb of 6.1 g/dL. Received transfusion and admitted to [facility]. ? She received a blood transfusion. She was discharged back to the nursing facility and subsequent discharge home. She had been doing home physical therapy. She was making improvements. Initially seen here in plan was for adjuvant chemotherapy once the acute issues were resolved. ? She was admitted to [facility] with hypotension and acute kidney injury on June 17. Serum creatinine was 2.75 mg/dL. She was started on hydration and admitted to the intensive care unit after initiating broad-spectrum antibiotics. Blood cultures remained negative. Urine culture showed 10-50,000 colony-forming units of gram-positive cocci. Patient was transitioned to Levaquin and metronidazole. Creatinine normalized. She was discharged and is now being followed at the wound clinic. ? She underwent excisional debridement of the nonhealing ulcer in the anterior abdominal wall with complex secondary wound closure on 07/18/2015. It was explained to her that 3 layers of sutures are in place. The superficial layer is non-dissolvable whereas the underlying 2 layers are dissolvable. There is a plan for the non-dissolvable sutures to be removed on the through . ? Previous therapy: 1) Adjuvant carbo/paclitaxel x6 cycles completed 12/2015. ? She underwent pelvic exam under anesthesia on 12/04/2016. During the procedure she was observed to have a large approximately 7-8 cm mass in the rectovaginal septum that infiltrated fairly downloaded to the hymenal ring. There was also infiltration along the right vaginal sidewall. Several core biopsies were obtained of the rectovaginal mass in the right vaginal sidewall. ? Areas revealed a poorly differentiated high-grade malignancy suggestive of malignant melanoma. Immunostains were positive for HMB-45, SOX-10 and [place]-1. CD3, CD20, CD45, CD138, inhibin, [place] 8 and S100 were negative. No BRAF mutation. ? Patient was admitted to [facility] for fever and malaise. She was found to have Escherichia coli sepsis. She was treated with broad-spectrum antibiotics. Urine appeared to be the source. She also received a 2 unit red blood cell transfusion. She underwent colonoscopy where in she was found to have extensive involvement of the rectum and was thereafter transferred to [facility]. On initial exam was determined that the tumor was significantly larger than it was on initial exam/biopsy. Therefore she underwent a palliative loop colostomy on 01/05. The patient had an unremarkable postoperative course and was discharged on Eliquis 5 mg twice a day and completed ciprofloxacin 14 days from her negative culture. ? 2) Palliative radiation on 01/26/2017. ? Current therapy: 1) Nivolumab. ? Presents for ongoing oncologic management. ? Interim history: Since last seen, she was discharged home last week for cellulitis of both legs. She has completed her course of antibiotic and there is still some swelling of the leg but the cellulitis this has resolved. she denies any excessive fatigue, appetite AND her weight is down since her hospital admission. ? She reports that otherwise she's been feeling very well. She is able to read and she feels like her vision hasn't subjectively improved. She denies nausea, vomiting or diarrhea. However, she is having a lot of discomfort from the ostomy herniation. It's not constant pain. Her pelvic pain is under good control but she has flares of pain whenever she passes some of the rectal mucus. She is urinating well with no outlet obstructive symptoms, dysuria or gross hematuria. She's had no further vaginal bleeding. She is seeking surgical options for management of her ventral hernia. ? ? PMH, medications and allergies as below personally reviewed by me today. Any changes documented in appropriate section. ? ROS: Constitutional: Denies episodes of fever and night sweats. Neuro: Denies TANNER, vertigo, dizziness. HEENT: No recent change in voice, vision or hearing. Resp: Denies cough, wheeze and hemoptysis. Denies shortness of breath at rest. CVS: Denies exertional chest pain, PND, orthopnea. Chronic lower extremity edema stable. GI: Denies symptoms of stomatitis. Denies dysphagia and odynophagia. Denies reflux and nausea. : See above. Endo: Denies hot flashes. Denies polyuria and polydipsia. Denies heat and cold intolerance. Musculoskeletal: Denies bone, back, joint and muscular pain. Derm: Denies rash. Denies diffuse pruritis. Heme: See above. Psych: Normal mood. ? PHYSICAL EXAM: Well-appearing and in no acute distress. performance status 80% BP 139/75 Pulse 84 Temp (Src) 98.5 (Oral) Wt 198 lb 8 oz (90.0kg) EYES: Sclerae are anicteric bilaterally. Mild conjunctival injection. Eyelashes have lightened in color. NECK: Supple. LYMPHATIC: There is no palpable cervical, supraclavicular adenopathy. RESPIRATORY: Inspiratory breath sounds are of normal intensity in all muir. No rales, wheezes or rhonchi. CARDIOVASCULAR: Rhythm is regular. Normal intensity S1/S2. There is no gallop or murmur. ABDOMEN: The abdomen is nondistended. Ostomy appears healthy. There is stable surrounding herniation, but more tenderness. Remains reducible however. Extremities: Stable lower extremity swelling worse on the left. SKIN: Less swelling and edema bilaterally. No sign of cellulitis. 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 ? LABS: Component Latest Ref Rng AND Units 10/22/2017 WBC, [place] 3.70 - 11.00 k/uL 6.29 RBC, [place] 3.90 - 5.20 m/uL 4.31 Hemoglobin, [place] 11.5 - 15.5 g/dL 12.9 Hematocrit, [place] 36.0 - 46.0 % 40.9 MCV, [place] 80.0 - 100.0 fL 94.9 MCH, [place] 26.0 - 34.0 pg 29.9 MCHC, [place] 30.5 - 36.0 g/dL 31.5 RDW, [place] 11.5 - 15.0 % 13.9 Platelet Cnt, [place] 150 - 400 k/uL 200 MPV, [place] 9.0 - 12.7 fL 9.3 Absol Gran Count 1.45 - 7.50 k/uL 4.36 Component Latest Ref Rng AND Units 10/22/2017 Protein, Total 6.3 - 8.0 g/dL 7.1 Albumin 3.9 - 4.9 g/dL 4.0 Calcium 8.5 - 10.2 mg/dL 9.5 Bilirubin, Total 0.2 - 1.3 mg/dL 0.8 Alkaline Phosphatase 32 - 117 U/L 92 AST 13 - 35 U/L 21 Glucose 74 - 99 mg/dL 148 (H) BUN 7 - 21 mg/dL 40 (H) Creatinine 0.58 - 0.96 mg/dL 1.50 (H) Sodium 136 - 144 mmol/L 139 Potassium 3.7 - 5.1 mmol/L 3.6 (L) Chloride 97 - 105 mmol/L 95 (L) CO2 22 - 30 mmol/L 31 (H) Anion Gap 9 - 18 mmol/L 13 ALT 7 - 38 U/L 17 eGFR- 41 eGFR-All Other Races . 34 LD 135 - 214 U/L 216 (H) ASSESSMENT/PLAN: (C52) Melanoma of vagina (HCC) (primary encounter diagnosis) Assessment/Plan: -KPS is 80%. -She is tolerating OPDIVO treatment very well with significant response of the pelvic melanoma. She is having side effects including iritis and retinitis but the symptoms are stable to improving on local steroid therapy. Plan: -Okay for continued therapy. -Monitor CBC and CMP monthly with treatment -Follow up with wildlife biostation research ecologist a schedule. -Repeat CT chest abdomen pelvis for restaging in 6 weeks. ? 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 ? 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 -Presently no vaginal bleeding. Plan: -Continue Eliquis 5 mg twice a day. ? (R10.2) Pelvic pain Assessment/Plan: -Under good control. Plan: -Continue current regimen. (L03.119) recurrent cellulitis and lymphedema lower extremities. Assessment/Plan: -Under good control AND cellulitis improved -Chronic venous stasis and lymphedema Plan: - lotion and discussed skin care - elevate legs Liliya Magana MD Cc: Dr. 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 For prevention of contrast allergy given 13 hrs, 7 hrs and 1 hr prior to exam.Disp: 3 tabletRfl: 0 diphenhydrAMINE (BENADRYL) 50 mg capsuleTake 1 capsule by mouth as directed for 1 dose. one (1) hour prior to exam.Disp: 1 capsuleRfl: 0 CT ABD/PEL W IVCON [[id number]] Order #: [id number] FUTURE CT CHEST W IVCON [[id number]] Order #: [id number] FUTURE [] iv contrast (will be provided with radiology test)CT Chest ABD/PEL-Inject, intravenously, once for 1 dose.No IV access, insert saline lock prior to the beginning of sedation, infusion, injection of imaging exam. Discontinue saline lock post exam. If Pt. has a central line or IVAD, may access for administration according to line specific nursing protocol. Once exam is complete flush line and de-access according to line specific nursing protocol in the CT contrast administration guidelines link.Disp: 1 EachRfl: 0 [] enteric contrast (will be provided with radiology test)For CT CHESTABD/PEL W IVCON Routine order Administer, As Directed One Time Only, via Oral, Rectal, both Oral and Rectal, Enteric Tube, Stoma or Indwelling Catheter, Enteric Contrast as designated per enteric contrast guidelinesDisp: 1 EachRfl: 0 Level of Service: EST PATIENT VISIT LEVEL 4 [15085] Disposition: Return in about 6 weeks (around 12/03/2017). LOS history recorded Follow-up and Disposition History Recorded Prescriptions as of 10/22/2017 Sig: DOXYCYCLINE HYCLATE 100 MG CA* Take 100 mg by mouth twice da* CEPHALEXIN 500 MG CAPSULE Take 500 mg by mouth three ti* OXYCODONE 15 MG TABLET Take 15 mg by mouth every 12 * OXYCODONE 5 MG TABLET Take 1-2 tablets by mouth morena* CHOLECALCIFEROL (VITAMIN D3) * Take 2,000 Units by mouth onc* APIXABAN 5 MG TABLET 1 tablet twice daily. Take 1/* Patient taking differently: 5 mg twice daily. ONDANSETRON HCL 8 MG TABLET Take 1 tablet by mouth every * PHENERGAN ORAL Take by mouth as needed. FUROSEMIDE 40 MG TABLET Take 40 mg by mouth twice jessica* ASCORBIC ACID (VITAMIN C) 1,0* Take 1,000 mg by mouth once d* METFORMIN 500 MG TABLET Take 1/2 tablet by mouth twic* CYANOCOBALAMIN (VIT B-12) 250* Take 1 tablet by mouth once d* CYCLOBENZAPRINE 10 MG TABLET Take 10 mg by mouth daily at * MULTIVITAMIN-IRON 9 MG-FOLIC * Take 1 tablet by mouth once d* CETIRIZINE 10 MG TABLET Take 10 mg by mouth once kaz* ACETAMINOPHEN 325 MG TABLET Take 325 mg by mouth every 6 * ALBUTEROL SULFATE HFA 90 MCG/* Inhale 2 Puffs as instructed * PREDNISONE 50 MG TABLET Take 1 tablet by mouth every * DIPHENHYDRAMINE 50 MG CAPSULE Take 1 capsule by mouth as di* IV CONTRAST (RADIOLOGY PROCED* CT Chest ABD/PEL-Inject, intr* ENTERIC CONTRAST (RADIOLOGY P* For CT CHESTABD/PEL W IVCON R* Problem List As Of Date 10/22/2017 Noted Resolved 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 Encounter Status:Closed by LILIYA MAGANA MD on 10/25/17 [place] ABS GR + CBC Collected: 10/22/2017 Status: F Source: [place] 9:00 [facility] REPOSITORY TYPE CODE TESTS RESULT OUT OF REFERENCE UNITS RANGE LAB WWBC 3.70-11.00 k/uL [place] WBC 6.29 LAB WRBC 3.90-5.20 m/uL [place] RBC 4.31 LAB WHGB 11.5-15.5 g/dL [place] Hemoglobin 12.9 LAB WHCT 36.0-46.0 % [place] Hematocrit 40.9 LAB WMCV 80.0-100.0 fL [place] MCV 94.9 LAB WMCH 26.0-34.0 pg [place] MCH 29.9 LAB WMCHC 30.5-36.0 g/dL [place] MCHC 31.5 LAB WRDW 11.5-15.0 % [place] RDW 13.9 LAB WPLT 150-400 k/uL [place] Platelet Cnt 200 LAB WMPV 9.0-12.7 fL [place] MPV 9.3 Result Comment: Test performed at: [facility], [address] [place] [address]. LAB ABGRAN 1.45-7.50 k/uL Absol Gran 4.36 Count COMP METABOLIC PANEL Collected: 10/22/2017 Status: F Source: [place] 9:00 AM [facility] REPOSITORY TYPE CODE TESTS RESULT OUT OF REFERENCE UNITS RANGE LAB TP 6.3-8.0 g/dL Protein, Total 7.1 LAB ALB 3.9-4.9 g/dL Albumin 4.0 LAB CA 8.5-10.2 mg/dL Calcium, Total 9.5 LAB TBIL 0.2-1.3 mg/dL Bilirubin, Total 0.8 LAB ALKP 32-117 U/L Alkaline Phosphatase 92 LAB AST 13-35 U/L AST 21 LAB GLU 74-99 mg/dL Glucose High 148 Result Comment: The [place] Diabetes Association (ADA) provides guidance for cutoff values for fasting glucose and random glucose. The ADA defines fasting as no caloric intake for at least 8 hours. Fas ting plasma glucose results between 100 to 125 mg/dL indicate increased risk for diabetes (prediabetes). Fasting plasma glucose results greater than or equal to 126 mg/dL meet the criteria for diagnosis of diabetes. In the absence of unequivocal hyperglycemia, results should be confirmed by repeat testing. In a patient with classic symptoms of hyperglycemia or hyperglycemic crisis, random plasma glucose results greater than or equal to 200 mg/dL meet the criteria for diagnosis of diabetes. Reference: Standards of Medical Care in Diabetes 2016, [place] [employer] Association. Diabetes Care. 2016.39(Suppl 1). LAB BUN 7-21 mg/dL BUN High 40 LAB CRET 0.58-0.96 mg/dL Creatinine High 1.50 LAB NA 136-144 mmol/L Sodium 139 LAB K 3.7-5.1 mmol/L Low Potassium 3.6 LAB CL 97-105 mmol/L Low Chloride 95 LAB CO2 22-30 mmol/L CO2 High 31 LAB AGAP 9-18 mmol/L Anion Gap 13 LAB ALT 7-38 U/L ALT 17 LAB GFRAA eGFR- Amer. 41 LAB GFRNAA . eGFR-All Other Races 34 Result Comment: eGFR (Estimated GFR) Units of measure: mL/min/1.73 meters squared eGFR is derived from the reexpressed MDRD Study equation using the following parameters: serum creatinine, age, gender and race. The creatinine assay has been calibrated to be traceable to IDMS. An eGFR <60 mL/min/1.73m2 for >3 months is consistent with chronic kidney disease. Refer to KDOQI guidelines for clinical interpretation. In patients with unstable renal function, e.g. those with acute kidney injury, the eGFR may not accurately reflect actual GFR. Performed By: #### CMP, LD6 #### [facility] [address] [place], [place] [address] LD Collected: 10/22/2017 Status: F Source: [facility] 9:00 AM [facility] REPOSITORY TYPE CODE TESTS RESULT OUT OF RANGE REFERENCE UNITS LAB LD 135-214 U/L High LD 216 Performed By: #### CMP, LD6 #### [facility] [address] [place], [place] [address] 12 LEAD ELECTROCARDIOGRAM Observed: 10/21/2017 Status: F Source: [place] 3:10 PM [facility] Cardiovascular Services [address] [place] [address] 12 Lead EKG 10/15/17 1017 MR#: [id number] Acct: [id number] Name: KANU AJ Rep #: [id number] : 1945 72 From: Elio Espinosa MD Attending Dr: Chente Gómez DO Status: DIS IN Ordering Dr: Isidro Patel MD Date: 10/15/17 [place] [facility] [place]: F C Admitted: 10/15/17 Test Reason : FEVER Blood Pressure : / mmHG Vent. Rate : 109 BPM Atrial Rate : 109 BPM P-R Int : 172 ms QRS Dur : 142 ms QT Int : 360 ms P-R-T Axes : 040 -31 -01 degrees QTc Int : 484 ms Sinus tachycardia Left axis deviation Right bundle branch block Abnormal ECG Confirmed by ELIO ESPINOSA MD ([id number]), primer expeditor and drier FELY FLORES ([id number]) on 10/21/2017 3:10:03 PM Referred By: NEIL Confirmed By:ELIO ESPINOSA MD 10/21/17 1680 Date Elio Espinosa MD CC: Chente Gómez DO; Chente Daigle MD; Isidro Patel MD Signed BEDSIDE GLUCOSE Collected: 10/18/2017 Status: F Source: [place] 4:11 PM [facility] TYPE CODE TESTS RESULT OUT OF REFERENCE UNITS RANGE LAB L501.080 70-110 mg/dL High BEDSIDE GLU 176 Result Comment: MANAGEMENT OF PATIENT CARE PER NURSING PROTOCOL Performed By: #### L501.080 #### [facility] Point of Care [address] [place] [address] BEDSIDE GLUCOSE Collected: 10/18/2017 Status: F Source: [place] 11:21 AM [facility] TYPE CODE TESTS RESULT OUT OF REFERENCE UNITS RANGE LAB L501.080 70-110 mg/dL High BEDSIDE GLU 139 Result Comment: MANAGEMENT OF PATIENT CARE PER NURSING PROTOCOL Performed By: #### L501.080 #### [facility] Point of Care [address] [place] [address] DISCHARGE SUMMARY Observed: 10/18/2017 Status: F Source: [place] 10:17 AM [facility] Medical Records Department [address] [place] [address] Discharge Summary 10/18/17 1015 MR#: [id number] Acct: [id number] Name: KANU AJ Rep #: [id number] : 1945 72 From: Chente Gómez DO PCP: Chente Daigle MD Status: ADM IN Location: [place] [address] Discharge Date and Diagnosis - Problem List Patient Problems: Active and Suspected Problems Cellulitis of right lower extremity (Acute) Date of Admission: 10/15/17 Date of Discharge: 10/18/17 - Primary Discharge Diagnosis Active and Suspected Problems Cellulitis of right lower extremity (Acute) - Secondary Discharge Diagnosis Chronic Problems Asthma (Chronic) Reported, severity unknown History of DVT (deep vein thrombosis) (Chronic) History of pulmonary embolism (Chronic) Type II diabetes mellitus (Chronic) Cancer of ovary (Chronic) Anemia (Chronic) Venous insufficiency (Chronic) Poor dentition (Chronic) Hospital Course and Treatment Imaging Results: Clinical Impression(s) from Imaging Studies Chest X-Ray 10/15/17 10:15 IMPRESSION: Mild degree of vascular congestion. Electronically Signed: Mitchel Diaz MD at 11:17 EDT Tel [phone], Service support , Tibia/Fibula X-Ray 10/15/17 10:22 IMPRESSION: Diffuse soft tissue swelling. Electronically Signed: Mitchel Diaz MD at 11:16 EDT Tel [phone], Service support , Operations: None Procedures: None Summary of Care Provided: The patient is a 72 year old F presents with sepsis and RLE cellulitis. Patient was started on Vancomycin. His cellulitis slowly improved, and today, the patient can be safely discharged to home with Doxycycline and Keflex. 1. Sepsis: * resolved * present on admission * secondary to RLE cellulitis 2. 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 CKD 3 * Creatinine up to 1.6 today * Follow up as outpt.[] Discharge Diet: 1800 Calorie Control Diet Discharge Activity: Return to Normal Activity Call your doctor if you observe: Fever of 101 or Higher, Shortness of breath, - - increased pain, swelling and erythema of legs. Home Medications: Medications to take at Discharge Acetaminophen [Tylenol] 325 mg PO Q6H PRN PRN 05/29/15 Cyanocobalamin [Vitamin B12] 1,000 mcg PO DAILY@0800 05/29/15 Cyclobenzaprine [Flexeril] 10 mg PO QHS 05/29/15 Metformin HCl [Glucophage] 500 mg PO BIDCM 05/29/15 Apixaban [Eliquis] 2.5 mg PO BID 06/12/15 Multivitamin [Daily Multiple Vitamin] 1 tab PO DAILY 06/12/15 Furosemide [Lasix] 40 mg PO BID 07/16/15 Oxycodone [Oxyir] 5 mg PO Q4H PRN PRN #60 tablet 07/20/15 proMETHazine tablet [Phenergan tablet] 25 mg PO 4X/DAY PRN PRN #20 tablet 07/20/15 Albuterol IH (ProAir) [Proair Hfa] 2 puff INHALATION Q6H PRN PRN 02/08/17 Cetirizine HCl [Zyrtec] 10 mg PO PRN PRN 05/27/16 Ondansetron HCl [Zofran] 4 mg PO 4X/DAY PRN PRN 05/27/16 Sumatriptan Succinate [Imitrex] 50 mg PO .X1 PRN 05/27/16 Oxycodone HCl [Oxycodone HCl ER] 15 mg PO BID 12/25/16 Cephalexin [Keflex] 500 mg PO Q8 #15 cap 10/18/17 Doxycycline 100 mg PO BID #10 cap 10/18/17 Following Prescrptions Were Given to Patient: Cephalexin [Keflex] 500 mg PO Q8 #15 cap Doxycycline 100 mg PO BID #10 cap Primary Care Physician: Chente Daigle MD [Primary Care Provider] - Within 2 Weeks Please Follow Up With: Isidro Estevez DO When: next scheduled appointment Disposition: Home Minutes spent on discharge:: 32 Patient Condition:: Fair Medical Necessity - Tobacco Use Smoking Status: Never smoker Meaningful Use Info Meaningful Use Diagnoses (Choose all that apply): None applicable Code Visit Inpatient E AND M: 68381 Disch Hosp 10/18/17 1017 <Electronically signed by Chente Gómez DO> Date Chente Gómez DO Cosigner Signature (if applicable): Date CC: Chente Gómez DO; Chente Daigle MD; Isidro Estevez DO Signed DISCHARGE INSTRUCTION Observed: 10/18/2017 Status: F Source: [place] 10:15 AM [facility] Medical Records Department [address] [place] [address] Instructions for Home/Discharge Instructions 10/18/17 1013 MR#: [id number] Acct: [id number] Name: KANU AJ Rep #: [id number] : 1945 72 From: Chente Gómez DO PCP: Daigle MD,Chente Status: ADM IN - Discharge Diagnoses Current Active Problems: Current Active and Chronic Problems Cellulitis of right lower extremity (Acute) You will use the following diet at home:: Calorie/Carbohydrate Controlled (specify 1200, 1400, etc) - 1800 Your food should be the consistency of: Regular Your liquids should be the consistency of: Regular/Thin Discharge Activity: Return to Normal Activity Call your doctor if you observe: Fever of 101 or Higher, Shortness of breath, - - increased pain, swelling and erythema of legs. Allergies/Adverse Reactions: Allergies clindamycin Allergy (Verified 10/15/17 09:50) Other meperidine HCl [From Demerol] Allergy (Verified 10/15/17 09:50) Other Penicillins Allergy (Verified 10/15/17 09:50) Itching adhesive tape Adverse Reaction (Verified 10/15/17 09:50) Other BLISTERS aspirin Adverse Reaction (Verified 10/15/17 09:50) Other diazepam [From Valium] Adverse Reaction (Verified 10/15/17 09:50) Nausea/Vom/Diarrhea egg Adverse Reaction (Verified 10/15/17 09:50) Diarrhea morphine Adverse Reaction (Verified 10/15/17 09:50) Nausea/Vom/Diarrhea sulfamethoxazole [From Bactrim] Adverse Reaction (Verified 10/15/17 09:50) Nausea/Vom/Diarrhea trimethoprim [From Bactrim] Adverse Reaction (Verified 10/15/17 09:50) Nausea/Vom/Diarrhea Medications to take at Discharge Acetaminophen [Tylenol] 325 mg PO Q6H PRN PRN 05/29/15 Cyanocobalamin [Vitamin B12] 1,000 mcg PO DAILY@0800 05/29/15 Cyclobenzaprine [Flexeril] 10 mg PO [facility] 05/29/15 Metformin HCl [Glucophage] 500 mg PO BIDCM 05/29/15 Apixaban [Eliquis] 2.5 mg PO BID 06/12/15 Multivitamin [Daily Multiple Vitamin] 1 tab PO DAILY 06/12/15 Furosemide [Lasix] 40 mg PO BID 07/16/15 Oxycodone [Oxyir] 5 mg PO Q4H PRN PRN #60 tablet 07/20/15 proMETHazine tablet [Phenergan tablet] 25 mg PO 4X/DAY PRN PRN #20 tablet 07/20/15 Albuterol IH (ProAir) [Proair Hfa] 2 puff INHALATION Q6H PRN PRN 05/27/16 Cetirizine HCl [Zyrtec] 10 mg PO PRN PRN 05/27/16 Ondansetron HCl [Zofran] 4 mg PO 4X/DAY PRN PRN 05/27/16 Sumatriptan Succinate [Imitrex] 50 mg PO .X1 PRN 05/27/16 Oxycodone HCl [Oxycodone HCl ER] 15 mg PO BID 12/25/16 Cephalexin [Keflex] 500 mg PO Q8 #15 cap 10/18/17 Doxycycline 100 mg PO BID #10 cap 10/18/17 The following prescriptions were given: Cephalexin [Keflex] 500 mg PO Q8 #15 cap Doxycycline 100 mg PO BID #10 cap Primary Care Physician: Chente Daigle MD [Primary Care Provider] - Within 2 Weeks Test Results: Please Follow Up With: Isidro Estevez DO When: next scheduled appointment Proposed Discharge Date: 10/18/17 10/18/17 1015 <Electronically signed by Chente Gómez DO> Date Chente Gómez DO CC: Chente Daigle MD BEDSIDE GLUCOSE Collected: 10/18/2017 Status: F Source: [place] 6:25 AM [facility] TYPE CODE TESTS RESULT OUT OF REFERENCE UNITS RANGE LAB L501.080 70-110 mg/dL High BEDSIDE GLU 137 Result Comment: MANAGEMENT OF PATIENT CARE PER NURSING PROTOCOL Performed By: #### L501.080 #### [facility] Point of Care [address] [place] [place] [address] CBC W/DIFF, AUTOMATED Collected: 10/18/2017 Status: F Source: [place] 5:50 AM [facility] TYPE CODE TESTS RESULT OUT OF RANGE REFERENCE UNITS LAB L100.1000 4.4-11.0 K/mm3 Normal WBC 4.8 LAB L100.1200 4.2-5.4 M/mm3 Low RBC 3.76 LAB L100.1300 12.0-15.0 g/dl Low HGB 11.4 LAB L100.1400 37-47 % Low HCT 35.8 LAB L100.1500 81-99 fL Normal MCV 95.2 LAB L100.1600 27.0-32.0 pg Normal MCH 30.3 LAB L100.1700 32-36 g/gl Low MCHC 31.8 LAB L100.1810 11.6-14.6 % Normal RDW CV 13.8 LAB L100.1820 35.1-43.9 fl High RDW SD 45.4 LAB L100.1900 150-450 K/mm3 Low PLT 145 LAB L100.2000 6.2-12.0 fl Normal MPV 9.7 LAB L100.2100 47-70 % Normal NEUT% 66.6 LAB L100.2200 19-41 % Normal LY% 19.6 LAB L100.2300 0-10 % Normal MONO% 8.6 LAB L100.2400 0-5 % Normal EO% 4.4 LAB L100.2500 0-1 % Normal BASO% 0.4 LAB L100.2550 0.0-0.9 % Normal IM GRAN % 0.400 Result Comment: IG% - Immature Granulocytes (promyelocytes, myelocytes and metamyelocytes) > 1% indicates that a LEFT SHIFT is Present. LAB L100.2620 2.0-7.7 X10 3/uL Normal Absolute Neut 3.2 LAB L100.2720 0.83-4.51 X10 3/ul Normal Absolute Lymph 0.94 Performed By: #### L100.0100 #### [facility] [address] [place] [address]. [place], [place], [address] BASIC METABOLIC Collected: 10/18/2017 Status: F Source: [place] PROFILE (BMP) 5:50 AM [facility] TYPE CODE TESTS RESULT OUT OF RANGE REFERENCE UNITS LAB L501.0100 74-106 mg/dL High GLU 140 Result Comment: Fasting Glucose result greater than or equal to 126 mg/dL suggests DIABETES MELLITUS per A.D.A. criteria. Please note revised GLUCOSE reference range effective 2017. LAB L501.1000 7-18 mg/dL High BUN 35 LAB L501.1100 0.55-1.02 mg/dL High CREAT,SERUM 1.60 Result Comment: The validity of the calculated GFR AND GFRAA in patients over 70 years has not been determined. Clinical correlation is essential. LAB L501.1110 >60 mL/min Low EST GFR 34 Result Comment: Non- GFR Calc LAB L501.1115 >60 mL/min Low EST GFR - AA 41 Result Comment: GFR Calc LAB L501.1255 ml/min Normal Estimated CRCL 23.98 LAB L501.1300 10-20 RATIO High BUN/CRE 21.9 LAB L501.2200 8.5-10 mg/dL Normal .1 CA 8.6 LAB L501.5300 136-14 mmol/L Normal 5 NA 143 LAB L501.5600 3.5-5. mmol/L Normal 1 K 4.1 LAB L501.5900 98-107 mmol/L Normal CL 104 LAB L501.6100 21.0-3 mmol/L High 2.0 CO2 33.0 LAB L501.6200 5-15 Normal GAP 6 Performed By: #### L500.2500 #### [facility] [address] [place], [address] BEDSIDE GLUCOSE Collected: 10/17/2017 Status: F Source: [place] 9:10 PM [facility] TYPE CODE TESTS RESULT OUT OF REFERENCE UNITS RANGE LAB L501.080 70-110 mg/dL High BEDSIDE GLU 160 Result Comment: MANAGEMENT OF PATIENT CARE PER NURSING PROTOCOL Performed By: #### L501.080 #### [facility] Point of Care [address] [facility] [place] [address] BEDSIDE GLUCOSE Collected: 10/17/2017 Status: F Source: [place] 4:06 PM [facility] TYPE CODE TESTS RESULT OUT OF REFERENCE UNITS RANGE LAB L501.080 70-110 mg/dL High BEDSIDE GLU 171 Result Comment: MANAGEMENT OF PATIENT CARE PER NURSING PROTOCOL Performed By: #### L501.080 #### [facility] [address] [address] [place] [address] VANCOMYCIN, TROUGH Collected: 10/17/2017 Status: F Source: [place] LEVEL 11:44 AM [facility] Order Comment: Time Medication is to be Given? 1200 TYPE CODE TESTS RESULT OUT OF RANGE REFERENCE UNITS LAB L501.8820 5.0-15.0 ug/mL Normal VANCO, TROUGH 9.5 Result Comment: VANCOMYCIN STANDARED DRUG THERAPY TROUGH LEVEL: 5.0 - 15.0 mg/L VANCOMYCIN HIGH INTENSITY THERAPY TROUGH LEVEL: 15.0 - 20.0 mg/L High Intensity therapy recommended for serious life threatening infections include: - Meningitis -Endocarditis -Pneumonia (Ventilator/Healtcare Associated) -Sepsis PLEASE CONTACT PHARMACY SERVICES (#[id number]) FOR INTERPRETATION OF RESULTS. Performed By: #### L501.8820 #### [facility] [address] [place], [place], [address] BEDSIDE GLUCOSE Collected: 10/17/2017 Status: F Source: [place] 11:13 AM [facility] TYPE CODE TESTS RESULT OUT OF REFERENCE UNITS RANGE LAB L501.080 70-110 mg/dL High BEDSIDE GLU 169 Result Comment: MANAGEMENT OF PATIENT CARE PER NURSING PROTOCOL Performed By: #### L501.080 #### [facility] Point of Care [address] [place] [address] BEDSIDE GLUCOSE Collected: 10/17/2017 Status: F Source: [place] 7:12 AM [facility] TYPE CODE TESTS RESULT OUT OF RANGE REFERENCE UNITS LAB L501.080 70-110 mg/dL Normal BEDSIDE GLU 102 Result Comment: MANAGEMENT OF PATIENT CARE PER NURSING PROTOCOL Performed By: #### L501.080 #### [facility] Point of Care [address] [place] [address] BEDSIDE GLUCOSE Collected: 10/16/2017 Status: F Source: [place] 9:42 PM [facility] TYPE CODE TESTS RESULT OUT OF REFERENCE UNITS RANGE LAB L501.080 70-110 mg/dL High BEDSIDE GLU 167 Result Comment: MANAGEMENT OF PATIENT CARE PER NURSING PROTOCOL Performed By: #### L501.080 #### [facility] Point of Care [address] [place] [address] BEDSIDE GLUCOSE Collected: 10/16/2017 Status: F Source: [place] 4:44 PM [facility] TYPE CODE TESTS RESULT OUT OF REFERENCE UNITS RANGE LAB L501.080 70-110 mg/dL High BEDSIDE GLU 121 Result Comment: MANAGEMENT OF PATIENT CARE PER NURSING PROTOCOL Performed By: #### L501.080 #### [facility] Point of Care [address] [place] [address] BEDSIDE GLUCOSE Collected: 10/16/2017 Status: F Source: [place] 10:56 AM [facility] TYPE CODE TESTS RESULT OUT OF REFERENCE UNITS RANGE LAB L501.080 70-110 mg/dL High BEDSIDE GLU 141 Result Comment: MANAGEMENT OF PATIENT CARE PER NURSING PROTOCOL Performed By: #### L501.080 #### [facility] Point of Care [address] [place] [address] CBC W/DIFF, AUTOMATED Collected: 10/16/2017 Status: F Source: [place] 7:00 AM [facility] TYPE CODE TESTS RESULT OUT OF RANGE REFERENCE UNITS LAB L100.1000 4.4-11.0 K/mm3 Normal WBC 5.7 LAB L100.1200 4.2-5.4 M/mm3 Low RBC 3.66 LAB L100.1300 12.0-15.0 g/dl Low HGB 10.9 LAB L100.1400 37-47 % Low HCT 34.8 LAB L100.1500 81-99 fL Normal MCV 95.1 LAB L100.1600 27.0-32.0 pg Normal MCH 29.8 LAB L100.1700 32-36 g/gl Low MCHC 31.3 LAB L100.1810 11.6-14.6 % Normal RDW CV 14.6 LAB L100.1820 35.1-43.9 fl High RDW SD 50.3 LAB L100.1900 150-450 K/mm3 Low PLT 111 LAB L100.2000 6.2-12.0 fl Normal MPV 9.6 LAB L100.2100 47-70 % High NEUT% 77.5 LAB L100.2200 19-41 % Low LY% 9.7 LAB L100.2300 0-10 % High MONO% 10.1 LAB L100.2400 0-5 % Normal EO% 2.3 LAB L100.2500 0-1 % Normal BASO% 0.2 LAB L100.2550 0.0-0.9 % Normal IM GRAN % 0.200 Result Comment: IG% - Immature Granulocytes (promyelocytes, myelocytes and metamyelocytes) > 1% indicates that a LEFT SHIFT is Present. LAB L100.2620 2.0-7.7 X10 3/uL Normal Absolute Neut 4.4 LAB L100.2720 0.83-4.51 X10 3/ul Low Absolute Lymph 0.55 Performed By: #### L100.0100 #### [facility] [address] [facility]. [place], [place], [address] BASIC METABOLIC Collected: 10/16/2017 Status: F Source: [place] PROFILE (BMP) 7:00 AM [facility] TYPE CODE TESTS RESULT OUT OF RANGE REFERENCE UNITS LAB L501.0100 74-106 mg/dL High GLU 118 Result Comment: Fasting Glucose result from 100 to 125 mg/dL suggests IMPAIRED HOMEOSTASIS per A.D.A. criteria. Please note revised GLUCOSE reference range effective 2017. LAB L501.1000 7-18 mg/dL High BUN 23 LAB L501.1100 0.55-1.02 mg/dL High CREAT,SERUM 1.32 Result Comment: The validity of the calculated GFR AND GFRAA in patients over 70 years has not been determined. Clinical correlation is essential. LAB L501.1110 >60 mL/min Low EST GFR 42 Result Comment: Non- GFR Calc LAB L501.1115 >60 mL/min Low EST GFR - AA 51 Result Comment: GFR Calc LAB L501.1255 ml/min Normal Estimated CRCL 29.07 LAB L501.1300 10-20 RATIO Normal BUN/CRE 17.4 LAB L501.2200 8.5-10 mg/dL Low .1 CA 8.2 LAB L501.5300 136-14 mmol/L Normal 5 NA 143 LAB L501.5600 3.5-5. mmol/L Normal 1 K 3.8 LAB L501.5900 98-107 mmol/L Normal CL 107 LAB L501.6100 21.0-3 mmol/L Normal 2.0 CO2 29.0 LAB L501.6200 5-15 Normal GAP 7 Performed By: #### L500.2500 #### [facility] [address] [place], [place], [address] BEDSIDE GLUCOSE Collected: 10/16/2017 Status: F Source: [place] 6:57 AM [facility] TYPE CODE TESTS RESULT OUT OF RANGE REFERENCE UNITS LAB L501.080 70-110 mg/dL Normal BEDSIDE GLU 110 Result Comment: MANAGEMENT OF PATIENT CARE PER NURSING PROTOCOL Performed By: #### L501.080 #### [facility] Point of Care [address] [place], [place] [address] BEDSIDE GLUCOSE Collected: 10/15/2017 Status: F Source: [place] 9:24 PM [facility] TYPE CODE TESTS RESULT OUT OF REFERENCE UNITS RANGE LAB L501.080 70-110 mg/dL High BEDSIDE GLU 156 Result Comment: MANAGEMENT OF PATIENT CARE PER NURSING PROTOCOL Performed By: #### L501.080 #### [facility] Point of Care [address] [place] [address] HISTORY AND PHYSICAL Observed: 10/15/2017 Status: F Source: [place] EXAM 3:11 PM [facility] Medical Records Department [address] [place] [address] History and Physical 10/15/17 1452 MR#: [id number] Acct: [id number] Name: KANU AJ Rep #: [id number] : 1945 72 From: Chente Gómez DO PCP: Chente Daigle MD Status: ADM IN [facility] Problem List (1) Cellulitis of right lower extremity Status: Acute History of Present Illness Date of Admission: 10/15/17 Chief Complaint: right leg pain. The patient is a 72 year old F with history of cellulitis. Patient was feeling ill, with malaise in days prior. Then this morning, around 0300, she had swelling and pain in posterior distal RLE. She had fever and chills. She presented to ED and was found to have RLE cellulitis. She received Vancomycin. [] Past Medical History Past Medical History (Chronic Problems): Chronic Problems Asthma (Chronic) Reported, severity unknown History of DVT (deep vein thrombosis) (Chronic) History of pulmonary embolism (Chronic) Type II diabetes mellitus (Chronic) Cancer of ovary (Chronic) Anemia (Chronic) Venous insufficiency (Chronic) Poor dentition (Chronic) Allergies clindamycin Allergy (Verified 10/15/17 09:50) Other meperidine HCl [From Demerol] Allergy (Verified 10/15/17 09:50) Other Penicillins Allergy (Verified 10/15/17 09:50) Itching adhesive tape Adverse Reaction (Verified 10/15/17 09:50) Other BLISTERS aspirin Adverse Reaction (Verified 10/15/17 09:50) Other diazepam [From Valium] Adverse Reaction (Verified 10/15/17 09:50) Nausea/Vom/Diarrhea egg Adverse Reaction (Verified 10/15/17 09:50) Diarrhea morphine Adverse Reaction (Verified 10/15/17 09:50) Nausea/Vom/Diarrhea sulfamethoxazole [From Bactrim] Adverse Reaction (Verified 10/15/17 09:50) Nausea/Vom/Diarrhea trimethoprim [From Bactrim] Adverse Reaction (Verified 10/15/17 09:50) Nausea/Vom/Diarrhea Home Medications: Ambulatory Orders Medication Instructions Recorded Acetaminophen [Tylenol] 325 mg PO Q6H PRN PRN 05/29/15 Surgical History: cholecystectomy, hysterectomy - For uterine fibroids, total hip arthroplasty - Right, total knee arthroplasty - Left, - - Surgery for bilateral carpal tunnel syndrome. Resection [facility] ovarian cancer at [facility] 2016, debridement of the abdominal wall with wound closure by Dr. Garza in June 2015 Psychiatric History: No pertinent psych hx FINGER WAVER History: ovarian cancer, uterine fibroids Smoking Status: Never smoker - *Family History Maternal History Items: No pertinent history, - - no cancer Paternal History Items: No pertinent history Review of Systems Constitutional: Reports: Chills, Fever, Malaise, Weakness Eyes: Reports: Blurred vision - chronic due to fluid behind her eyes Cardiovascular: Denies: Chest Pain, Claudication, Chest Pressure, Chest Tightness Respiratory: Denies: Cough, Hemoptysis, Pleuritic Pain Gastrointestinal: Denies: Abdominal Pain, Constipation Genitourinary: Denies: Dysuria Musculoskeletal: Denies: Joint Pain, Joint Tenderness Skin: Denies: Rash, Wounds Neurological: Denies: Numbness, Tingling, Focal weakness Psychiatric: Denies: Anxiety, Depression Hematologic/ Lymphatic: Denies: Easy Bruising, Easy Bleeding VTE Information - Inpt Only VTE Present on Admission: No VTE Pharm Prophylaxis ordered?: Yes Patient Problems: Active and Suspected Problems Cellulitis of right lower extremity (Acute) - Physical Exam General: Alert, No apparent distress HEENT: Atraumatic, Normocephalic Oral: Moist Mucosa, No Gingival or Mucosal Lesions/ Ulcerations Neck: No Nodes, Thyroid Normal Size and Texture Lungs: Clear to auscultation, Normal air movement, No rhonchi, No wheeze Cardiovascular: Regular rate, Regular Rhythm, Normal S1, Normal S2, No murmurs Abdomen: Bowel Sounds Present, Soft, Non Tender, Non-Distended, No Hepato-splenomegaly, - - ventral hernia below stoma Extremities: No Calf Tenderness, Edema - trace Skin: - - erythema and TTP of RLE Musculoskeletal: No Tenderness to Palpation of Joints or Extremities, No Muscle Wasting Psych/Mental Status: Normal Affect, Appropriate Vital Signs Temp Pulse Resp BP Pulse Ox 36.7 C 103 H 18 146/81 H 98 10/15/17 13:00 10/15/17 13:00 10/15/17 13:00 10/15/17 13:00 10/15/17 13:00 Oxygen Delivery Method Room Air Weight: 96.6 kg Body Mass Index (BMI) 40.2 POC Glucose POC Glucose 126 H Assessment/Plan All Active Problems Cellulitis of right lower extremity (Acute) Severe sepsis (Acute) Melanoma (Acute) Acute renal insufficiency (Acute) Dental infection (Acute) Dehydration (Acute) Abdominal wall ulcer (Resolved) Colitis (Resolved) Left leg cellulitis (Resolved) Sepsis (Resolved) Surgical wound dehiscence (Resolved) 1. Sepsis: * present on admission * secondary to RLE cellulitis 2. 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 DVT proph: * LMWH Code Visit Inpatient E AND M: [id number] Init Hosp L2 10/15/17 1511 <Electronically signed by Chente Gómez DO> Date Chente Gómez DO Cosigner Signature: Date (if applicable) CC: Chente Gómez DO; Chente Daigle MD Signed EMERGENCY DEPARTMENT Observed: 10/15/2017 Status: F Source: [place] SUMMARY 2:34 PM [facility] Medical Records Department [address] [place] [address] Emergency Department Summary 10/15/17 1012 MR#: [id number] Acct: [id number] Name: KANU AJ Rep #: [id number] : 1945 72 From: Isidro Patel MD PCP: Chente Daigle MD Status: ADM IN - ER Visit Summary Date of Service: 10/15/17 Chief Complaint: Fever History of Present Illness: The patient is a 72 F complains of fever that started about 11-12 hours ago. She is also complaining of quite a bit of pain in her right calf region as well as redness. She is a diabetic, she also has a history of melanoma and ovarian cancer. She is complaining of headache but no neck pain. No cough, no shortness of breath. No dysuria. She has an ostomy bag and she has chronic abdominal pain, she endorses some abdominal pain but only slightly worse than her normal pain. No change in character. Physical Examination: Patient is tachycardic, febrile. She appears in some distress. She has a supple neck with no meningismus and a negative jolt. She has clear lungs bilaterally with regular tachycardia. Her abdomen is soft there is some tenderness to palpation but no guarding or rebound. The ostomy bag site is clean dry and intact without any signs of cellulitis. She has significant cellulitis of the right lower extremity circumferentially. No crepitus. No lymphangitic streaking. Emergency Department Course and Treatment: Leg x-ray does not show any subcutaneous air, no streaking on physical exam and no crepitus on examination. There are no current signs of necrotizing fasciitis. Patient was treated aggressively with vancomycin and Cipro. These were chosen secondary to her allergies to 3 different antibiotics. He does have leukocytosis with a left shift. Disposition: Admit stable condition Impression: Cellulitis This note was generated with [employer] dictation software. It may contain incorrect words, spelling, and punctuation that were not noted in review of the chart prior to signing ED Disposition - Plan for ED Patient: Chief Complaint: Fever Referrals: Chente Daigle MD [Primary Care Provider] - What to do if you have Problems For any increased pain, shortness of breath, bleeding, nausea or vomiting, chest pain, or any unexpected problems, contact your Primary Care Provider. Call [facility] ([phone]) or report to the closest Emergency Room. Call 911 if necessary. 10/15/17 1434 <Electronically signed by Isidro Patel MD> Date Isidro Patel MD Cosigner Signature (If Indicated): Date CC: Chente Daigle MD BEDSIDE GLUCOSE Collected: 10/15/2017 Status: F Source: [place] 2:25 PM [facility] TYPE CODE TESTS RESULT OUT OF REFERENCE UNITS RANGE LAB L501.080 70-110 mg/dL High BEDSIDE GLU 126 Result Comment: MANAGEMENT OF PATIENT CARE PER NURSING PROTOCOL Performed By: #### L501.080 #### [facility] Point of Care [address] [facility] [place], [place] [address] Observed: 10/15/2017 Status: F Source: [place] CULTURE, BLOOD (WB) 10:55 AM [facility] BC No growth in 5 days. Performed By: #### M200.1000 #### [facility] [address] [facility] [address] [place], [place], [address] URINALYSIS, COMPLETE Collected: 10/15/2017 Status: F Source: [place] 10:50 AM [facility] Order Comment: Order Date: 10/15/17 How was Urine Obtained? FIRER ELECTRIC LOCOMOTIVE TO SPECIFY TYPE CODE TESTS RESULT OUT OF RANGE REFERENCE UNITS LAB L400.3000 Yellow COLOR Normal Yellow LAB L400.3050 Clear Normal CLARITY Clear LAB L400.3200 Normal mg/dl Normal GLUCOSE, UR Normal LAB L400.3300 Negative mg/dL Normal BILIRUBIN URINE Negative LAB L400.3400 Negative mg/dl Normal KETONE UR Negative LAB L400.3465 1.002-1.030 Normal SP.GR. DIPSTX 1.015 LAB L400.3550 5.0 - 8.0 pH UR Normal 6.0 LAB L400.3600 Negative mg/dl High PROT 30 DIPSTX LAB L400.3700 Normal mg/dl Normal UROBILI Normal LAB L400.3750 Negative Normal NITRITE UR Negative LAB L400.3780 Negative /ul High 50 OCCULT BLOOD-UR LAB L400.3800 Negative /ul High LEUK 25 ESTERASE LAB L400.4050 0-5 /hpf WBC Normal 0-5 SEEN LAB L400.4100 0-5 /hpf 0 Normal RBC-UA SEEN LAB L400.4150 5-10 /hpf SQUAM Normal EPI 0-5 SEEN LAB L400.4300 None Seen /hpf 0 Normal BACTERIA SEEN LAB L400.4350 <or=2+ /hpf 0 Normal MUCUS, URINE SEEN Performed By: #### L400.0001 #### [facility] [address] [place], [address] Observed: 10/15/2017 Status: F Source: [place] CULTURE, URINE 10:50 AM [facility] Order Date: 10/15/17 Urine Culture Culture exhibits no growth. Performed By: #### M100.0650 #### [facility] [address] [place], [address] CBC W/DIFF, AUTOMATED Collected: 10/15/2017 Status: F Source: [place] 10:23 AM [facility] TYPE CODE TESTS RESULT OUT OF RANGE REFERENCE UNITS LAB L100.1000 4.4-11.0 K/mm3 High WBC 14.6 LAB L100.1200 4.2-5.4 M/mm3 Normal RBC 4.32 LAB L100.1300 12.0-15.0 g/dl Normal HGB 12.9 LAB L100.1400 37-47 % Normal HCT 40.0 LAB L100.1500 81-99 fL Normal MCV 92.6 LAB L100.1600 27.0-32.0 pg Normal MCH 29.9 LAB L100.1700 32-36 g/gl Normal MCHC 32.3 LAB L100.1810 11.6-14.6 % Normal RDW CV 14.2 LAB L100.1820 35.1-43.9 fl High RDW SD 48.0 LAB L100.1900 150-450 K/mm3 Low PLT 128 LAB L100.2000 6.2-12.0 fl Normal MPV 9.8 LAB L100.2100 47-70 % High NEUT% 90.0 LAB L100.2200 19-41 % Low LY% 5.9 LAB L100.2300 0-10 % Normal MONO% 3.8 LAB L100.2400 0-5 % Normal EO% 0.1 LAB L100.2500 0-1 % Normal BASO% 0.1 LAB L100.2550 0.0-0.9 % Normal IM GRAN % 0.100 Result Comment: IG% - Immature Granulocytes (promyelocytes, myelocytes and metamyelocytes) > 1% indicates that a LEFT SHIFT is Present. LAB L100.2620 2.0-7.7 X10 3/uL High Absolute Neut 13.1 LAB L100.2720 0.83-4.51 X10 3/ul Normal Absolute Lymph 0.86 Performed By: #### L100.0100 #### [facility] [address] [place], [place], [address] COMPREHENSIVE METABOLIC Collected: 10/15/2017 Status: F Source: [facility] 10:23 AM [facility] TYPE CODE TESTS RESULT OUT OF RANGE REFERENCE UNITS LAB L501.0100 74-106 mg/dL High GLU 177 Result Comment: Fasting Glucose result greater than or equal to 126 mg/dL suggests DIABETES MELLITUS per A.D.A. criteria. Please note revised GLUCOSE reference range effective 2017. LAB L501.1000 7-18 mg/dL High BUN 30 LAB L501.1100 0.55-1.02 mg/dL High CREAT,SERUM 1.46 Result Comment: The validity of the calculated GFR AND GFRAA in patients over 70 years has not been determined. Clinical correlation is essential. LAB L501.1110 >60 mL/min Low EST GFR 37 Result Comment: Non- GFR Calc LAB L501.1115 >60 mL/min Low EST GFR - AA 45 Result Comment: GFR Calc LAB L501.1255 ml/min Normal Estimated CRCL 26.28 LAB L501.1300 10-20 RATIO High BUN/CRE 20.5 LAB L501.1500 6.4-8. g/dL Normal 2 T PROT 7.2 LAB L501.1800 3.2-5. g/dL Normal 0 ALB 3.3 LAB L501.1950 2.2-4. g/dL Normal 2 GLOB 3.9 LAB L501.2000 0.9-2. RATIO Low 4 A/G 0.8 LAB L501.2200 8.5-10 mg/dL Normal .1 CA 8.8 LAB L501.4100 15-37 U/L Normal AST 15 LAB L501.4305 45-117 U/L Normal ALK P 100 LAB L501.4405 13-56 U/L Normal ALT 22 LAB L501.4600 0.20-1 mg/dL High .00 T BILI 1.60 LAB L501.5300 136-14 mmol/L Normal 5 NA 139 LAB L501.5600 3.5-5. mmol/L Normal 1 K 3.9 LAB L501.5900 98-107 mmol/L Normal CL 102 LAB L501.6100 21.0-3 mmol/L Normal 2.0 CO2 30.0 LAB L501.6200 5-15 Normal GAP 7 Performed By: #### L500.4050 #### [facility] [address] [place], [place], [id number] LACTIC ACID Collected: 10/15/2017 Status: F Source: [place] 10:23 AM [facility] Order Comment: Yes/No query for Sepsis Lactate Rule Y TYPE CODE TESTS RESULT OUT OF RANGE REFERENCE UNITS LAB L503.6005 0.4-2.0 mmol/L Normal LACTIC ACID 1.5 Performed By: #### L503.6005 #### [facility] [address] [place], [place], [address] PROTHROMBIN TIME W/INR Collected: 10/15/2017 Status: F Source: [place] 10:23 AM [facility] [place] TYPE CODE TESTS RESULT OUT OF RANGE REFERENCE UNITS LAB L300.4150 11.7-14.9 SECONDS High PROTIME 15.7 LAB L300.4200 Normal INR 1.3 Performed By: #### L300.3900, L300.4310 #### [facility] [address] [place], [address] PARTIAL THROMBOPLAST Collected: 10/15/2017 Status: F Source: [place] TIME 10:23 AM [facility] [place] TYPE CODE TESTS RESULT OUT OF RANGE REFERENCE UNITS LAB L300.4310 24.1-36.2 Seconds Normal PTT 33.5 Performed By: #### L300.3900, L300.4310 #### [facility] [address] [place], [address] Observed: 10/15/2017 Status: F Source: [place] CULTURE, BLOOD (WB) 10:23 AM [facility] [place] [place] BC No growth in 5 days. Performed By: #### M200.1000 #### [facility] [address] [place], [address] TIBIA AND FIBULA Observed: 10/15/2017 Status: F Source: [place] 2 VIEWS 10:18 AM [facility] [place] [place] [facility] Imaging Services [address] [facility] [address] Tibia AND Fibula 2 Views MR#: [id number] Acct: [id number] Name: KANU AJ Rep #: [id number] : 1945 F 72 From: Mitchel Diaz MD PCP: Pilo BEAR,Chente Status: REG ER Study: Tibia AND Fibula 2 Views Date of Exam: 10/15/17 Exam# [id number] Ordering Dr: Isidro Patel MD STUDY: X-RAY - RIGHT TIBIA AND FIBULA REASON FOR EXAM: Female, 72 years old. Pain and swelling. No known injury. TECHNIQUE: 3 view(s) of the tibia and fibula were obtained. COMPARISON: None. FINDINGS: Normal visualized tibia. Normal visualized fibula. Diffuse soft tissue swelling. RAD/Tibia AND Fibula 2 Views IMPRESSION: Diffuse soft tissue swelling. Electronically Signed: Mitchel Diaz MD at 11:16 EDT Tel [phone], Service support , CC: Chente Daigle MD; Isidro Patel MD Medical Front Desk Coordinator: Signed CHEST 1 VIEW Observed: 10/15/2017 Status: F Source: [place] (PORTABLE) 10:11 AM [facility] [place] [facility] Imaging Services [address] [place] [address] Chest 1 View (Portable) MR#: [id number] Acct: [id number] Name: KANU AJ Rep #: [id number] : 1945 F 72 From: Mitchel Diaz MD PCP: Pilo BEAR,Chente Status: REG ER Study: Chest 1 View (Portable) Date of Exam: 10/15/17 Exam# [id number] Ordering Dr: Isidro Patel MD STUDY: X-RAY CHEST REASON FOR EXAM: Female, 72 years old. Fever and shortness of breath. TECHNIQUE: Single AP portable view of the chest. COMPARISON: Comparison is made with prior study dated December 27, 2016. FINDINGS: EKG electrodes are seen. Mild degree of vascular congestion. There is no demonstrated pleural abnormality. There is mild cardiac enlargement. Normal mediastinum and demetrius. Normal visualized pulmonary arteries. There is atherosclerotic tortuosity of the aortic arch and descending thoracic aorta. There are diffuse degenerative changes of the visualized thoracic spine. Evidence of prior left rotator cuff surgery. There is no demonstrated abnormality of the visualized soft tissue structures of the upper abdomen. RAD/Chest 1 View (Portable) IMPRESSION: Mild degree of vascular congestion. Electronically Signed: Mitchel Diaz MD at 11:17 EDT Tel [phone], Service support , CC: Chente Daigle MD; Isidro Patel MD Medical Front Desk Coordinator: Signed PROGRESS Observed: 09/24/2017 Status: COMPLETED Source: [place] 10:42 AM [facility] REPOSITORY HNO ID: [id number] Author: Nguyen López Service: (none) Author Type: Nurse Practitioner Type: Progress Notes Filed: 09/24/2017 12:22 PM Note Text: Chief Complaint Patient presents with: Established Patient HPI: Kanu Aj is a 72 year old female who presents here today for evaluation for chemotherapy on Wednesday. Per Dr. Estevez's previous note: H/o DM2, asthma, VTE, and possible mild CKD as well has hysterectomy ~31 yrs ago who presented to [facility] ED 07/2013 with c/o dyspnea. CT chest significant for large b/l PE. One was a saddle embolus draped across the bifurcation of the main pulmonary artery and extending into both the right and left pulmonary artery segments per the CT report. Patient was transferred to [facility]. Not clear if she underwent thrombolysis. ? She recalls being discharged on Xarelto and was maintained on that drug until changed to Eliquis per her PCP. She was on that drug when she underwent work up for abdominal pain 03/2015. Underwent CT A/P 04/16/2015 that showed a large complex mass in the pelvis interpreted as arising from the uterus or an ovary and measuring 14.3 x 13.3 x 12.7 cm. It appeared to be well circumscribed not invading other structures. No evidence metastases elsewhere in abdomen. ? Patient was admitted to [facility] 04/19/2015 for acute left LE small DVT and possible cellulitis of the same leg. She was treated with vancomycin and anticoagulated with Lovenox and transferred to [facility] ([facility] under the care of a gynecologic oncology surgeon, Dr. Sony Monteiro. ? Underwent surgery 05/03/2015. The final pathology demonstrated that within the RIGHT ovary there was a granulosa cell tumor. The greatest dimension of the ovary was 18 cm. The left fallopian tube was not involved. The omentum was not involved. left ovary and right fallopian tubes were not involved. Tumor was adherent to the left pelvic sidewall. No regional lymph node metastasis was observed. Lymph nodes were removed from the left pelvic, left periaortic areas. Focal angiolymphatic invasion was identified. 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 ? She was discharged to [facility]. Since the time of surgery, she had been having abdominal pain that is sharp and low in abdomen. It crescendos and is partially relieved with a BM. Returns shortly thereafter. Stools were loose and she had been having intermittent nausea with poor appetite. Was transferred to [facility] 05/09/2015 however for low Hgb of 6.1 g/dL. Received transfusion and admitted to [facility]. ? She received a blood transfusion. She was discharged back to the nursing facility and subsequent discharge home. She had been doing home physical therapy. She was making improvements. Initially seen here in plan was for adjuvant chemotherapy once the acute issues were resolved. ? She was admitted to [facility] with hypotension and acute kidney injury on June 17. Serum creatinine was 2.75 mg/dL. She was started on hydration and admitted to the intensive care unit after initiating broad-spectrum antibiotics. Blood cultures remained negative. Urine culture showed 10-50,000 colony-forming units of gram-positive cocci. Patient was transitioned to Levaquin and metronidazole. Creatinine normalized. She was discharged and is now being followed at the wound clinic. ? She underwent excisional debridement of the nonhealing ulcer in the anterior abdominal wall with complex secondary wound closure on 07/18/2015. It was explained to her that 3 layers of sutures are in place. The superficial layer is non-dissolvable whereas the underlying 2 layers are dissolvable. There is a plan for the non-dissolvable sutures to be removed on the through . ? Previous therapy: 1) Adjuvant carbo/paclitaxel x6 cycles completed 12/2015. ? She underwent pelvic exam under anesthesia on 12/04/2016. During the procedure she was observed to have a large approximately 7- 8 cm mass in the rectovaginal septum that infiltrated fairly downloaded to the hymenal ring. There was also infiltration along the right vaginal sidewall. Several core biopsies were obtained of the rectovaginal mass in the right vaginal sidewall. ? Areas revealed a poorly differentiated high-grade malignancy suggestive of malignant melanoma. Immunostains were positive for HMB-45, SOX-10 and [place]-1. CD3, CD20, CD45, CD138, inhibin, [place] 8 and S100 were negative. No BRAF mutation. ? Patient was admitted to [facility] for fever and malaise. She was found to have Escherichia coli sepsis. She was treated with broad-spectrum antibiotics. Urine appeared to be the source. She also received a 2 unit red blood cell transfusion. She underwent colonoscopy where in she was found to have extensive involvement of the rectum and was thereafter transferred to [facility]. On initial exam was determined that the tumor was significantly larger than it was on initial exam/biopsy. Therefore she underwent a palliative loop colostomy on 01/05. The patient had an unremarkable postoperative course and was discharged on Eliquis 5 mg twice a day and completed ciprofloxacin 14 days from her negative culture. ? 2) Palliative radiation on 01/26/2017. ? Current therapy: 1) Nivolumab. ? This hernia is really bothering me. I can't bend over to do things. Appetite:good Energy level:I have lots of energy. Denies fevers or recent illness. Mouth:denies sores Resp:denies cough or sob Cardiac:denies chest pain/palpitations GI:+pain from ostomy hernia, occ. nausea and dry heaves, moving bowels regularly-ostomy :denies dysuria/hematuria Extrem:I have herniated discs in my back so it will hurt Neuro:denies symptoms of neuropathy Skin:denies rashes Heme:denies bleeding The ROS is otherwise negative. Past medical history, appointments, medications, allergies reviewed. No changes. EXAM: BP 137/72 Pulse 82 Temp 36.7 ?C (98 ?F) Wt 94.8 kg (209 lb) BMI 38.46 kg/m? APPEARANCE Well appearing, alert, in no acute distress, well-hydrated, well nourished. MOUTH no mucositis HEART RRR with normal S1 and S2, no murmurs LUNG clear to auscultation LYMPH NODES No cervical lymphadenopathy, No supraclavicular lymphadenopathy and No axillary lymphadenopathy. ABDOMEN ostomy pink +hernia/tender surrounding otherwise no tenderness to abd, bowel sounds normoactive, no bruits, soft EXTREMITIES chronic stasis edema/changes to BLE L>R NEURO Awake, alert and oriented x 3, Normal gait and No involuntary motions. SKIN no suspicious rashes or lesions LABS: Component Latest Ref Rng AND Units 07/30/2017 08/27/2017 09/24/2017 WBC, [place] 3.70 - 11.00 k/uL 5.12 6.59 5.06 RBC, [place] 3.90 - 5.20 m/uL 4.15 4.16 4.30 Hemoglobin, [place] 11.5 - 15.5 g/dL 12.6 12.6 13.2 Hematocrit, [place] 36.0 - 46.0 % 40.4 40.1 41.0 MCV, [place] 80.0 - 100.0 fL 97.3 96.4 95.3 MCH, [place] 26.0 - 34.0 pg 30.4 30.3 30.7 MCHC, [place] 30.5 - 36.0 g/dL 31.2 31.4 32.2 RDW, [place] 11.5 - 15.0 % 14.0 13.9 14.0 Platelet Cnt, [place] 150 - 400 k/uL 164 139 (L) 151 MPV, [place] 9.0 - 12.7 fL 9.8 10.6 9.9 Absol Gran Count 1.45 - 7.50 k/uL 3.61 5.29 3.59 CMP: Pending ASSESSMENT/PLAN: 1. 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 Vaginal melanoma (HCC) - ICD9: 184.0, ICD10: C52 4. Chronic deep vein thrombosis (DVT) of distal vein of left lower extremity (HCC) - ICD9: 453.52, ICD10: I82.5Z2 - Tolerating treatment fair d/t iritis/retinitis-pt. feels vision has improved. - F/u with wildlife biostation research ecologist as scheduled. - Reviewed CBC with pt. - CMP pending. - Continue eliquis. - Continue current meds. - Will discuss with Dr. Estevez who to refer pt. to for consideration of hernia repair. - Proceed as scheduled Wednesday for Opdivo. - Follow up as scheduled. - Pt. aware to call office with any questions/concerns. The patient indicates understanding of these issues and agrees with the plan. Nguyen López APRN.[facility] Observed: 09/24/2017 Status: COMPLETED Source: [place] 10:30 AM [facility] REPOSITORY Visit (SP) Office ([facility]) KANU AJ ([id number]) 1945 F Date Time Provider Department 09/24/17 10:30 AM NGUYEN LÓPEZ (EMMA) [facility] During your visit today, we recorded the following information about you: Temperature Pulse Blood pressure Weight 98 degrees 82/minute 137/72 94.8 kg Kylah Parker LPN, LPN 09/24/2017 10:42 AM Signed Est pt., discuss recent lab results, tx Wednesday SHARIF Dunaway APRN.[facility] 09/24/2017 12:22 PM Signed Chief Complaint Patient presents with: Established Patient HPI: Kanu Aj is a 72 year old female who presents here today for evaluation for chemotherapy on Wednesday. Per Dr. Estevez's previous note: H/o DM2, asthma, VTE, and possible mild CKD as well has hysterectomy ~31 yrs ago who presented to [facility] ED 07/2013 with c/o dyspnea. CT chest significant for large b/l PE. One was a saddle embolus draped across the bifurcation of the main pulmonary artery and extending into both the right and left pulmonary artery segments per the CT report. Patient was transferred to [facility]. Not clear if she underwent thrombolysis. ? She recalls being discharged on Xarelto and was maintained on that drug until changed to Eliquis per her PCP. She was on that drug when she underwent work up for abdominal pain 03/2015. Underwent CT A/P 04/16/2015 that showed a large complex mass in the pelvis interpreted as arising from the uterus or an ovary and measuring 14.3 x 13.3 x 12.7 cm. It appeared to be well circumscribed not invading other structures. No evidence metastases elsewhere in abdomen. ? Patient was admitted to [facility] 04/19/2015 for acute left LE small DVT and possible cellulitis of the same leg. She was treated with vancomycin and anticoagulated with Lovenox and transferred to [facility] under the care of a gynecologic oncology surgeon, Dr. Sony Monteiro. ? Underwent surgery 05/03/2015. The final pathology demonstrated that within the RIGHT ovary there was a granulosa cell tumor. The greatest dimension of the ovary was 18 cm. The left fallopian tube was not involved. The omentum was not involved. left ovary and right fallopian tubes were not involved. Tumor was adherent to the left pelvic sidewall. No regional lymph node metastasis was observed. Lymph nodes were removed from the left pelvic, left periaortic areas. Focal angiolymphatic invasion was identified. 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 ? She was discharged to [facility]. Since the time of surgery, she had been having abdominal pain that is sharp and low in abdomen. It crescendos and is partially relieved with a BM. Returns shortly thereafter. Stools were loose and she had been having intermittent nausea with poor appetite. Was transferred to [facility] 05/09/2015 however for low Hgb of 6.1 g/dL. Received transfusion and admitted to [facility]. ? She received a blood transfusion. She was discharged back to the nursing facility and subsequent discharge home. She had been doing home physical therapy. She was making improvements. Initially seen here in plan was for adjuvant chemotherapy once the acute issues were resolved. ? She was admitted to [facility] with hypotension and acute kidney injury on June 17. Serum creatinine was 2.75 mg/dL. She was started on hydration and admitted to the intensive care unit after initiating broad-spectrum antibiotics. Blood cultures remained negative. Urine culture showed 10-50,000 colony-forming units of gram-positive cocci. Patient was transitioned to Levaquin and metronidazole. Creatinine normalized. She was discharged and is now being followed at the wound clinic. ? She underwent excisional debridement of the nonhealing ulcer in the anterior abdominal wall with complex secondary wound closure on 07/18/2015. It was explained to her that 3 layers of sutures are in place. The superficial layer is non-dissolvable whereas the underlying 2 layers are dissolvable. There is a plan for the non-dissolvable sutures to be removed on the through . ? Previous therapy: 1) Adjuvant carbo/paclitaxel x6 cycles completed 12/2015. ? She underwent pelvic exam under anesthesia on 12/04/2016. During the procedure she was observed to have a large approximately 7-8 cm mass in the rectovaginal septum that infiltrated fairly downloaded to the hymenal ring. There was also infiltration along the right vaginal sidewall. Several core biopsies were obtained of the rectovaginal mass in the right vaginal sidewall. ? Areas revealed a poorly differentiated high-grade malignancy suggestive of malignant melanoma. Immunostains were positive for HMB-45, SOX-10 and [place]-1. CD3, CD20, CD45, CD138, inhibin, [place] 8 and S100 were negative. No BRAF mutation. ? Patient was admitted to [facility] for fever and malaise. She was found to have Escherichia coli sepsis. She was treated with broad-spectrum antibiotics. Urine appeared to be the source. She also received a 2 unit red blood cell transfusion. She underwent colonoscopy where in she was found to have extensive involvement of the rectum and was thereafter transferred to [facility]. On initial exam was determined that the tumor was significantly larger than it was on initial exam/biopsy. Therefore she underwent a palliative loop colostomy on 01/05. The patient had an unremarkable postoperative course and was discharged on Eliquis 5 mg twice a day and completed ciprofloxacin 14 days from her negative culture. ? 2) Palliative radiation on 01/26/2017. ? Current therapy: 1) Nivolumab. ? This hernia is really bothering me. I can't bend over to do things. Appetite:good Energy level:I have lots of energy. Denies fevers or recent illness. Mouth:denies sores Resp:denies cough or sob Cardiac:denies chest pain/palpitations GI:+pain from ostomy hernia, occ. nausea and dry heaves, moving bowels regularly-ostomy :denies dysuria/hematuria Extrem:I have herniated discs in my back so it will hurt Neuro:denies symptoms of neuropathy Skin:denies rashes Heme:denies bleeding The ROS is otherwise negative. Past medical history, appointments, medications, allergies reviewed. No changes. EXAM: BP 137/72 Pulse 82 Temp 36.7 ?C (98 ?F) Wt 94.8 kg (209 lb) BMI 38.46 kg/m? APPEARANCE Well appearing, alert, in no acute distress, well- hydrated, well nourished. MOUTH no mucositis HEART RRR with normal S1 and S2, no murmurs LUNG clear to auscultation LYMPH NODES No cervical lymphadenopathy, No supraclavicular lymphadenopathy and No axillary lymphadenopathy. ABDOMEN ostomy pink +hernia/tender surrounding otherwise no tenderness to abd, bowel sounds normoactive, no bruits, soft EXTREMITIES chronic stasis edema/changes to BLE L>R NEURO Awake, alert and oriented x 3, Normal gait and No involuntary motions. SKIN no suspicious rashes or lesions LABS: Component Latest Ref Rng AND Units 07/30/2017 08/27/2017 09/24/2017 WBC, [place] 3.70 - 11.00 k/uL 5.12 6.59 5.06 RBC, [place] 3.90 - 5.20 m/uL 4.15 4.16 4.30 Hemoglobin, [place] 11.5 - 15.5 g/dL 12.6 12.6 13.2 Hematocrit, [place] 36.0 - 46.0 % 40.4 40.1 41.0 MCV, [place] 80.0 - 100.0 fL 97.3 96.4 95.3 MCH, [place] 26.0 - 34.0 pg 30.4 30.3 30.7 MCHC, [place] 30.5 - 36.0 g/dL 31.2 31.4 32.2 RDW, [place] 11.5 - 15.0 % 14.0 13.9 14.0 Platelet Cnt, [place] 150 - 400 k/uL 164 139 (L) 151 MPV, [place] 9.0 - 12.7 fL 9.8 10.6 9.9 Absol Gran Count 1.45 - 7.50 k/uL 3.61 5.29 3.59 CMP: Pending ASSESSMENT/PLAN: 1. 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 Vaginal melanoma (HCC) - ICD9: 184.0, ICD10: C52 4. Chronic deep vein thrombosis (DVT) of distal vein of left lower extremity (HCC) - ICD9: 453.52, ICD10: I82.5Z2 - Tolerating treatment fair d/t iritis/retinitis-pt. feels vision has improved. - F/u with wildlife biostation research ecologist as scheduled. - Reviewed CBC with pt. - CMP pending. - Continue eliquis. - Continue current meds. - Will discuss with Dr. Estevez who to refer pt. to for consideration of hernia repair. - Proceed as scheduled Wednesday for Opdivo. - Follow up as scheduled. - Pt. aware to call office with any questions/concerns. The patient indicates understanding of these issues and agrees with the plan. Nguyen López APRN.[facility] Referring Provider: ISIDRO ESTEVEZ [[id number]] Allergies As of Date: 09/24/2017 Noted Allergy Reaction ASA (ASPIRIN) 05/09/2015 5 - Intolerance Comments: nose bleeds CLINDAMYCIN 05/09/2015 14 - Other: See Comments Comments: jerking, talking funny DEMEROL (MEPERIDINE (PF)) 05/09/2015 8 - GI Upset IODINE 11/23/2016 9 - Itching MORPHINE 05/09/2015 8 - GI Upset VALIUM (DIAZEPAM) 05/09/2015 8 - GI Upset Date Reviewed: 09/24/2017 Reviewed by: Nguyen ([facility]) Maribel - Fully Assessed Reason for Visit: Established Patient [175] Primary Visit Diagnosis: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 Take 1/* Patient taking differently: 5 mg twice daily. ONDANSETRON HCL 8 MG TABLET Take 1 tablet by mouth every * PHENERGAN ORAL Take by mouth as needed. 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 Visit Notes: >> Kylah Parker LPN WedSep 24, 2017 10:28 AM Status: Signed Est pt., discuss recent lab results, tx Wednesday Kylah Parker LPN Encounter Status:Closed by NGUYEN LÓPEZ CNP on 09/24/17 [place] ABS GR + CBC Collected: 09/24/2017 Status: F Source: [place] 10:17 AM [facility] REPOSITORY TYPE CODE TESTS RESULT OUT OF REFERENCE UNITS RANGE LAB WWBC 3.70-11.00 k/uL [place] WBC 5.06 LAB WRBC 3.90-5.20 m/uL [place] RBC 4.30 LAB WHGB 11.5-15.5 g/dL [place] Hemoglobin 13.2 LAB WHCT 36.0-46.0 % [place] Hematocrit 41.0 LAB WMCV 80.0-100.0 fL [place] MCV 95.3 LAB WMCH 26.0-34.0 pg [place] MCH 30.7 LAB WMCHC 30.5-36.0 g/dL [place] MCHC 32.2 LAB WRDW 11.5-15.0 % [place] RDW 14.0 LAB WPLT 150-400 k/uL [place] Platelet Cnt 151 LAB WMPV 9.0-12.7 fL [place] MPV 9.9 Result Comment: Test performed at: [facility] [place], [address] [place] [address]. LAB ABGRAN 1.45-7.50 k/uL Absol Gran 3.59 Count COMP METABOLIC PANEL Collected: 09/24/2017 Status: F Source: [place] 10:17 AM [facility] REPOSITORY TYPE CODE TESTS RESULT OUT OF REFERENCE UNITS RANGE LAB TP 6.3-8.0 g/dL Protein, Total 7.0 LAB ALB 3.9-4.9 g/dL Albumin 4.1 LAB CA 8.5-10.2 mg/dL Calcium, Total 9.3 LAB TBIL 0.2-1.3 mg/dL Bilirubin, Total 0.8 LAB ALKP 32-117 U/L Alkaline Phosphatase 103 LAB AST 13-35 U/L AST 16 LAB GLU 74-99 mg/dL Glucose High 130 Result Comment: The [place] [employer] (ADA) provides guidance for cutoff values for fasting glucose and random glucose. The ADA defines fasting as no caloric intake for at least 8 hours. Fas ting plasma glucose results between 100 to 125 mg/dL indicate increased risk for diabetes (prediabetes). Fasting plasma glucose results greater than or equal to 126 mg/dL meet the criteria for diagnosis of diabetes. In the absence of unequivocal hyperglycemia, results should be confirmed by repeat testing. In a patient with classic symptoms of hyperglycemia or hyperglycemic crisis, random plasma glucose results greater than or equal to 200 mg/dL meet the criteria for diagnosis of diabetes. Reference: Standards of Medical Care in Diabetes 2016, [place] [employer]. Diabetes Care. 2016.39(Suppl 1). LAB BUN 7-21 mg/dL BUN High 29 LAB CRET 0.58-0.96 mg/dL Creatinine High 1.33 LAB NA 136-144 mmol/L Sodium 139 LAB K 3.7-5.1 mmol/L Potassium 3.8 LAB CL 97-105 mmol/L Chloride 99 LAB CO2 22-30 mmol/L CO2 28 LAB AGAP 9-18 mmol/L Anion Gap 12 LAB ALT 7-38 U/L ALT 18 LAB GFRAA eGFR- Amer. 47 LAB GFRNAA . eGFR-All Other Races 39 Result Comment: eGFR (Estimated GFR) Units of measure: mL/min/1.73 meters squared eGFR is derived from the reexpressed MDRD Study equation using the following parameters: serum creatinine, age, gender and race. The creatinine assay has been calibrated to be traceable to IDMS. An eGFR <60 mL/min/1.73m2 for >3 months is consistent with chronic kidney disease. Refer to KDOQI guidelines for clinical interpretation. In patients with unstable renal function, e.g. those with acute kidney injury, the eGFR may not accurately reflect actual GFR. Performed By: #### CMP #### [facility] [address] [place], [place] [address] PROGRESS Observed: 09/13/2017 Status: COMPLETED Source: [place] 11:46 AM [facility] REPOSITORY HNO ID: [id number] Author: Karen Heart Service: (none) Author Type: Physician Type: Progress Notes Filed: 09/13/2017 12:17 PM Note Text: DATE OF SERVICE: 2017 PROBLEM: Kanu Aj is a consult from Dr. 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 SUBJECTIVE/HPI: Ms. Aj is a 72 year old female with past medical history remarkable for DM, asthma, prior PE including history of saddle embolus and DVT. 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 Then on 11/2017, she was diagnosed with large mass 8 cm involving the rectovaginal septum and extensively involving the rectum, pelvic sidewall and extending to the hymnal ring. She then underwent diverting loop colostomy on 12/2016 followed by palliative radiation and placed on immunotherapy with Nivolumab after that Overall she is doing well and has been having great response to immunotherapy. She is c/o hernia at her ostomy site which is affecting her quality of life. Cancer and Treatment History 1. Stage I granulosa cell tumor: 04/2015 surgical staging then carboplatin and taxol x 6 cycles completed on 12/2015 2. Vaginal melanoma diagnosed 11/2017. s/p palliative radiation and then Nivolumab 03/2017-08/2017 She reports that she feels well. No vaginal bleeding or discharge. No shortness of breath, cough, or chest pain. No abdominal pain, nausea, vomiting, diarrhea, or constipation. No dysuria, gross hematuria, urinary frequency, urinary urgency, or incontinence. Her ECOG performance status is 1 (restricted in physically strenuous activity but ambulatory and able to carry out work of a light or sedentary nature). Pelvic MRI 07/28/2017 RESULT: Uterus: Absent. Cervix: Absent. Ovaries: Absent. Vagina/rectum: Decrease in size of the infiltrative vaginal mass with concurrent decrease in hypervascularity. ?Residual component along the right vaginal cuff measures 3.5 x 4.0 cm (4:18, previously 5.5 x 5.0 cm at a comparable level). ?Inferior infiltrative component extending into the right rectovaginal space spanning 3.2 x 3.0 cm (4:12, previously 8.1 x 4.4 cm) and invading the anterior/right distal rectum measuring up to 1.8 cm in thickness (4:14, previously 2 cm) and with 5.9 cm maximum length along the rectum (3:14, previously 7 cm). Lymph nodes: ? 1.8 x 1.7 cm right pelvic sidewall node (4:27) previously measured 3.4 x 3.2 cm. ?Right anterior perirectal node currently measuring 4 mm (4:19) previously measured 1 cm. ?Additional right posterior perirectal nodes measuring up to 6 mm (4:24) and right external iliac chain nodes with fatty demetrius measuring up to 1.7 cm (4:33) are stable. Adnexa/other: No free fluid. ?Bilateral ischial bursitis and left hip effusion with advanced osteoarthrosis. ?Right hip arthroplasty. ? Parapelvic and cortical based bilateral renal cysts. ?No bowel obstruction. CT chest and abdomen and pelvis 07/30/2017 IMPRESSION: No CT evidence of metastatic disease in the chest. Persistent elevation of the left hemidiaphragm with associated left basilar atelectasis, similar to prior study. IMPRESSION: PREVIOUS MILDLY ENLARGED PELVIC LYMPH NODES ARE STABLE TO DECREASED IN SIZE IN THE INTERVAL THE VAGINAL VULVAR LESION SEEN PREVIOUSLY IS NOT DISCRETELY IDENTIFIED TODAY, BUT THIS MAY BE DUE TO STREAK ARTIFACT STABLE NONOCCLUSIVE IVC THROMBUS ABOVE THE LEVEL OF THE FILTER HISTORIES: PAST SURGICAL HISTORY Procedure Laterality Date - CHOLECYSTECTOMY HX ~2002 - COLONOSCOPY W/BX 12/28/2016 low rectal mass - EXPLORATORY OF ABDOMEN 05/03/15 exploratory laparotomy and bilateral salpingo-oophorectomy. - HIP SURGERY HX Right ~2005 Hip replacement - HYSTERECTOMY HX - KNEE SCOPE,DIAGNOSTIC Right Arthroscopy, knee - REVISE MEDIAN N/CARPAL TUNNEL SURG Bilateral carpal tunnel decomp - SHOULDER SURGERY HX Left Shoulder replacement - TOTAL KNEE REPLACEMENT Left ~2005 Knee replacement 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 - Obesity - Pulmonary embolism (HCC) 07/2013 - Type 2 diabetes mellitus (HCC) ~1999 Insulin requiring FAMILY HISTORY Problem Relation Age of Onset - Kidney Disease Father at age 80 - Kidney Cancer [OTHER] Father - Diabetes Brother - Hypertension Brother - Heart Brother Family history of breast, ovarian, uterine or colon cancer: No Family history of VTE: No SOCIAL HISTORY Social History Substance Use Topics - Smoking status: Never Smoker - Smokeless tobacco: Never Used - Alcohol use No Occupation: Marital Status: REVIEW OF SYSTEMS: GENERAL: No recent weight loss, fever, chills, malaise or fatigue. HEENT: No changes in hearing or vision, frequent or severe headaches, nose bleeds or other nasal problems. NECK: No lumps, goiter, pain, significant neck swelling, or difficulty swallowing. RESPIRATORY: No shortness of breath, cough, wheezing, recent pneumonia (within last 6 weeks) or recent URI (within 2 weeks). CARDIOVASCULAR: No angina with activity or at rest, lower extremity edema, or palpitations. No recent MT (within 6 months), cardiac stent, cardiac surgery, gangrene, or PVD. No history of hypertension. BREAST: No breast lumps, skin changes, nipple discharge, or adenopathy. GI: No abdominal pain, nausea, vomiting, diarrhea, or constipation. No prior history of esophageal varicies or ascites. Patient denies drinking >2 alcoholic beverages a day. : No dysuria, gross hematuria, urinary frequency, urinary urgency, or incontinence. No history of renal failure, dialysis, or recent UTI (<6 weeks). MUSCULOSKELETAL: No muscle weakness or joint pain. SKIN: No skin lesions, rashes, or itching. PSYCH: No sleep disturbances, depression, bipolar disorder, drug dependency/history of drug dependency, or recent psychosocial stressors. HEMATOLOGY/LYMPHOLOGY: No prolonged bleeding, bruising easily, swollen nodes, or anemia. No prior history of a blood clot or clotting disorder. No prior history of a bleeding disorder. Not on chronic anticoagulant/platelet medications. ENDOCRINE: No cold or heat intolerance, polyuria, polydipsia, polyphagia, goiter, hot flashes or night sweats. No prior diagnosis of diabetes or thyroid disorder. No chronic steroid use. NEURO: No history of paralysis, stroke/TIA, seizures, tremors, syncope, or paresthesias. ECOG performance status is 1 (restricted in physically strenuous activity but ambulatory and able to carry out work of a light or sedentary nature) Karen Heart MD OBJECTIVE: VITALS: BP 161/73 Pulse 72 Resp 18 Wt 97.1 kg (214 lb) SpO2 99% BMI 39.38 kg/m? GENERAL: Patient is a well developed, well nourished female. She is alert, oriented, pleasant and cooperative. SKIN: Color, texture, turgor normal. No rashes or lesions. HEENT: Normocephalic, atraumatic, mucus membranes moist and no lesions NECK: Supple, no adenopathy; thyroid symmetric, normal size, no bruits LUNGS: Clear to auscultation bilaterally. HEART: Regular rate and rhythm, no murmurs. BACK: No CVA tenderness or gross deformities. BREAST: deferred exam ABDOMEN: Abdomen soft, non-tender, no hepatosplenomegaly. 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 I discussed with her that she has been having excellent response to Nivolumab and her scan is showing that her mass is smaller now which is great. Her disease at the pelvic sidewall specifically vanessa disease is smaller but still there. Given that, I worry that surgical debulking with pelvic exenteration will not add much benefit given sidewall disease. In fact it might delay her immunotherapy and could be potentially detrimental. At this point, I would favor continuing immunotherapy. We can consider PET/CT scan to look at the side wall disease. Overall she is tolerating her immunotherapy well and her main issue is the peristomal hernia. This is hernia is causing pain and is affecting her quality of life. I agree that this needs to be fixed. I will discuss with Dr. Esetvez if there is anything I can help with. She needs referral to Colorectal team either at [place] or [facility]. I know both team and I can help facilitate that Total face to face time 60 minutes and more that 50% spent on counseling the patient and coordinating her care. Karen Heart MD, MPH A letter and a copy of this office note were sent to: - Isidro Estevez DO [address] [facility] [id number] - Chente Daigle MD (PCP) CNOV Observed: 2017 Status: COMPLETED Source: [place] 3:00 PM [facility] REPOSITORY Office Visit (GYNCMD) KANU AJ ([id number]) 1945 F Date Time Provider Department 09/03/17 3:00 PM KAREN HEART GYNCMD During your visit today, we recorded the following information about you: Pulse Respiration Blood pressure Weight 72/minute 18/minute 161/73 97.1 kg Katerina Quinn 2017 3:30 PM Signed Patient presents with: Establish Care: follow up Karen Heart MD 09/13/2017 12:17 PM Signed DATE OF SERVICE: 2017 PROBLEM: Kanu Aj is a consult from Dr. 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 SUBJECTIVE/HPI: Ms. Aj is a 72 year old female with past medical history remarkable for DM, asthma, prior PE including history of saddle embolus and DVT. 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 Then on 11/2017, she was diagnosed with large mass 8 cm involving the rectovaginal septum and extensively involving the rectum, pelvic sidewall and extending to the hymnal ring. She then underwent diverting loop colostomy on 12/2016 followed by palliative radiation and placed on immunotherapy with Nivolumab after that Overall she is doing well and has been having great response to immunotherapy. She is c/o hernia at her ostomy site which is affecting her quality of life. Cancer and Treatment History 1. Stage I granulosa cell tumor: 04/2015 surgical staging then carboplatin and taxol x 6 cycles completed on 12/2015 2. Vaginal melanoma diagnosed 11/2017. s/p palliative radiation and then Nivolumab 03/2017-08/2017 She reports that she feels well. No vaginal bleeding or discharge. No shortness of breath, cough, or chest pain. No abdominal pain, nausea, vomiting, diarrhea, or constipation. No dysuria, gross hematuria, urinary frequency, urinary urgency, or incontinence. Her ECOG performance status is 1 (restricted in physically strenuous activity but ambulatory and able to carry out work of a light or sedentary nature). Pelvic MRI 07/28/2017 RESULT: Uterus: Absent. Cervix: Absent. Ovaries: Absent. Vagina/rectum: Decrease in size of the infiltrative vaginal mass with concurrent decrease in hypervascularity. ?Residual component along the right vaginal cuff measures 3.5 x 4.0 cm (4:18, previously 5.5 x 5.0 cm at a comparable level). ?Inferior infiltrative component extending into the right rectovaginal space spanning 3.2 x 3.0 cm (4:12, previously 8.1 x 4.4 cm) and invading the anterior/right distal rectum measuring up to 1.8 cm in thickness (4:14, previously 2 cm) and with 5.9 cm maximum length along the rectum (3:14, previously 7 cm). Lymph nodes: ? 1.8 x 1.7 cm right pelvic sidewall node (4:27) previously measured 3.4 x 3.2 cm. ?Right anterior perirectal node currently measuring 4 mm (4:19) previously measured 1 cm. ?Additional right posterior perirectal nodes measuring up to 6 mm (4:24) and right external iliac chain nodes with fatty demetrius measuring up to 1.7 cm (4:33) are stable. Adnexa/other: No free fluid. ?Bilateral ischial bursitis and left hip effusion with advanced osteoarthrosis. ?Right hip arthroplasty. ? Parapelvic and cortical based bilateral renal cysts. ?No bowel obstruction. CT chest and abdomen and pelvis 07/30/2017 IMPRESSION: No CT evidence of metastatic disease in the chest. Persistent elevation of the left hemidiaphragm with associated left basilar atelectasis, similar to prior study. IMPRESSION: PREVIOUS MILDLY ENLARGED PELVIC LYMPH NODES ARE STABLE TO DECREASED IN SIZE IN THE INTERVAL THE VAGINAL VULVAR LESION SEEN PREVIOUSLY IS NOT DISCRETELY IDENTIFIED TODAY, BUT THIS MAY BE DUE TO STREAK ARTIFACT STABLE NONOCCLUSIVE IVC THROMBUS ABOVE THE LEVEL OF THE FILTER HISTORIES: PAST SURGICAL HISTORY Procedure Laterality Date - CHOLECYSTECTOMY HX ~2002 - COLONOSCOPY W/BX 12/28/2016 low rectal mass - EXPLORATORY OF ABDOMEN 05/03/15 exploratory laparotomy and bilateral salpingo-oophorectomy. 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 - Obesity - Pulmonary embolism (HCC) 07/2013 - Type 2 diabetes mellitus (HCC) ~1999 Insulin requiring FAMILY HISTORY Problem Relation Age of Onset - Kidney Disease Father at age 80 - Kidney Cancer [OTHER] Father - Diabetes Brother - Hypertension Brother - Heart Brother Family history of breast, ovarian, uterine or colon cancer: No Family history of VTE: No SOCIAL HISTORY Social History Substance Use Topics - Smoking status: Never Smoker - Smokeless tobacco: Never Used - Alcohol use No Occupation: Marital Status: REVIEW OF SYSTEMS: GENERAL: No recent weight loss, fever, chills, malaise or fatigue. HEENT: No changes in hearing or vision, frequent or severe headaches, nose bleeds or other nasal problems. NECK: No lumps, goiter, pain, significant neck swelling, or difficulty swallowing. RESPIRATORY: No shortness of breath, cough, wheezing, recent pneumonia (within last 6 weeks) or recent URI (within 2 weeks). CARDIOVASCULAR: No angina with activity or at rest, lower extremity edema, or palpitations. No recent MT (within 6 months), cardiac stent, cardiac surgery, gangrene, or PVD. No history of hypertension. BREAST: No breast lumps, skin changes, nipple discharge, or adenopathy. GI: No abdominal pain, nausea, vomiting, diarrhea, or constipation. No prior history of esophageal varicies or ascites. Patient denies drinking >2 alcoholic beverages a day. : No dysuria, gross hematuria, urinary frequency, urinary urgency, or incontinence. No history of renal failure, dialysis, or recent UTI (<6 weeks). MUSCULOSKELETAL: No muscle weakness or joint pain. SKIN: No skin lesions, rashes, or itching. PSYCH: No sleep disturbances, depression, bipolar disorder, drug dependency/history of drug dependency, or recent psychosocial stressors. HEMATOLOGY/LYMPHOLOGY: No prolonged bleeding, bruising easily, swollen nodes, or anemia. No prior history of a blood clot or clotting disorder. No prior history of a bleeding disorder. Not on chronic anticoagulant/platelet medications. ENDOCRINE: No cold or heat intolerance, polyuria, polydipsia, polyphagia, goiter, hot flashes or night sweats. No prior diagnosis of diabetes or thyroid disorder. No chronic steroid use. NEURO: No history of paralysis, stroke/TIA, seizures, tremors, syncope, or paresthesias. ECOG performance status is 1 (restricted in physically strenuous activity but ambulatory and able to carry out work of a light or sedentary nature) Karen Heart MD OBJECTIVE: VITALS: BP 161/73 Pulse 72 Resp 18 Wt 97.1 kg (214 lb) SpO2 99% BMI 39.38 kg/m? GENERAL: Patient is a well developed, well nourished female. She is alert, oriented, pleasant and cooperative. SKIN: Color, texture, turgor normal. No rashes or lesions. HEENT: Normocephalic, atraumatic, mucus membranes moist and no lesions NECK: Supple, no adenopathy; thyroid symmetric, normal size, no bruits LUNGS: Clear to auscultation bilaterally. HEART: Regular rate and rhythm, no murmurs. BACK: No CVA tenderness or gross deformities. BREAST: deferred exam ABDOMEN: Abdomen soft, non-tender, no hepatosplenomegaly. 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 I discussed with her that she has been having excellent response to Nivolumab and her scan is showing that her mass is smaller now which is great. Her disease at the pelvic sidewall specifically vanessa disease is smaller but still there. Given that, I worry that surgical debulking with pelvic exenteration will not add much benefit given sidewall disease. In fact it might delay her immunotherapy and could be potentially detrimental. At this point, I would favor continuing immunotherapy. We can consider PET/CT scan to look at the side wall disease. Overall she is tolerating her immunotherapy well and her main issue is the peristomal hernia. This is hernia is causing pain and is affecting her quality of life. I agree that this needs to be fixed. I will discuss with Dr. Estevez if there is anything I can help with. She needs referral to Colorectal team either at [place] or [facility]. I know both team and I can help facilitate that Total face to face time 60 minutes and more that 50% spent on counseling the patient and coordinating her care. Karen Heart MD, MPH A letter and a copy of this office note were sent to: - Isidro Estevez DO [address] [place] [id number] - Chente Daigle MD (PCP) Referring Provider: ISIDRO ESTEVEZ [[id number]] Allergies As of Date: 2017 Noted Allergy Reaction ASA (ASPIRIN) 05/09/2015 5 - Intolerance Comments: nose bleeds CLINDAMYCIN 05/09/2015 14 - Other: See Comments Comments: jerking, talking funny DEMEROL (MEPERIDINE (PF)) 05/09/2015 8 - GI Upset IODINE 11/23/2016 9 - Itching MORPHINE 05/09/2015 8 - GI Upset VALIUM (DIAZEPAM) 05/09/2015 8 - GI Upset Date Reviewed: 2017 Reviewed by: Katerina Quinn - Fully Assessed Reason for Visit: Establish Care [42] Cmt: follow up Primary Visit Diagnosis:Vaginal melanoma (HCC) [C52] Other Visit Diagnosis:Peristomal hernia [K46.9] Prescriptions as of 2017 Sig: AMOXICILLIN 875 MG-POTASSIUM * Take 1 tablet by mouth twice * X OXYCODONE 5 MG TABLET Take 1-2 tablets by mouth morena* OXYCODONE 15 MG TABLET Take 15 mg by mouth every 12 * APIXABAN 5 MG TABLET 1 tablet twice daily. Take 1/* Patient taking differently: 5 mg twice daily. ONDANSETRON HCL 8 MG TABLET Take 1 tablet by mouth every * PHENERGAN ORAL Take by mouth as needed. FUROSEMIDE 40 MG TABLET Take 40 mg by mouth twice jessica* ASCORBIC ACID (VITAMIN C) 1,0* Take 1,000 mg by mouth once d* METFORMIN 500 MG TABLET Take 1/2 tablet by mouth twic* CYANOCOBALAMIN (VIT B-12) 250* Take 1 tablet by mouth once d* CYCLOBENZAPRINE 10 MG TABLET Take 10 mg by mouth daily at * MULTIVITAMIN-IRON 9 MG-FOLIC * Take 1 tablet by mouth once d* CETIRIZINE 10 MG TABLET Take 10 mg by mouth once kaz* ACETAMINOPHEN 325 MG TABLET Take 325 mg by mouth every 6 * ALBUTEROL SULFATE HFA 90 MCG/* Inhale 2 Puffs as instructed * PREDNISONE 50 MG TABLET Take 1 tablet 13, 7 and 1 valerie* GABAPENTIN 300 MG CAPSULE Take 1 capsule by mouth three* POTASSIUM CHLORIDE ER 10 MEQ * Take 1 tablet by mouth once d* METHYLPREDNISOLONE 4 MG TABLE* As Instructed per package FLUTICASONE-SALMETEROL 230 MC* Inhale 1 Puff as instructed t* Problem List As Of Date 2017 Noted Resolved 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 Visit Notes: >> Katerina Quinn WedSeptember 03, 2017 3:28 PM Status: Signed Patient presents with: Establish Care: follow up Follow-up and Disposition History Recorded Encounter Status:Closed by KAREN HEART MD on 09/13/17 PROGRESS Observed: 08/27/2017 Status: COMPLETED Source: [place] 11:05 AM [facility] REPOSITORY HNO ID: [id number] Author: Isidro Estevez Service: (none) Author Type: Physician Type: Progress Notes Filed: 08/27/2017 12:22 PM Note Text: Diagnoses: 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 HPI: The patient is a 71 yo female with a PMH significant for DM2, asthma, VTE, and possible mild CKD as well has hysterectomy ~31 yrs ago who presented to [facility] ED 07/2013 with c/o dyspnea. CT chest significant for large b/l PE. One was a saddle embolus draped across the bifurcation of the main pulmonary artery and extending into both the right and left pulmonary artery segments per the CT report. Patient was transferred to [facility]. Not clear if she underwent thrombolysis. She recalls being discharged on Xarelto and was maintained on that drug until changed to Eliquis per her PCP. She was on that drug when she underwent work up for abdominal pain 03/2015. Underwent CT A/P 04/16/2015 that showed a large complex mass in the pelvis interpreted as arising from the uterus or an ovary and measuring 14.3 x 13.3 x 12.7 cm. It appeared to be well circumscribed not invading other structures. No evidence metastases elsewhere in abdomen. Patient was admitted to [facility] 04/19/2015 for acute left LE small DVT and possible cellulitis of the same leg. She was treated with vancomycin and anticoagulated with Lovenox and transferred to [facility] ([facility]) under the care of a gynecologic oncology surgeon, Dr. Sony Monteiro. Underwent surgery 05/03/2015. The final pathology demonstrated that within the RIGHT ovary there was a granulosa cell tumor. The greatest dimension of the ovary was 18 cm. The left fallopian tube was not involved. The omentum was not involved. left ovary and right fallopian tubes were not involved. Tumor was adherent to the left pelvic sidewall. No regional lymph node metastasis was observed. Lymph nodes were removed from the left pelvic, left periaortic areas. Focal angiolymphatic invasion was identified. 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 She was discharged to [facility]. Since the time of surgery, she had been having abdominal pain that is sharp and low in abdomen. It crescendos and is partially relieved with a BM. Returns shortly thereafter. Stools were loose and she had been having intermittent nausea with poor appetite. Was transferred to [facility] 05/09/2015 however for low Hgb of 6.1 g/dL. Received transfusion and admitted to [facility]. She received a blood transfusion. She was discharged back to the nursing facility and subsequent discharge home. She had been doing home physical therapy. She was making improvements. Initially seen here in plan was for adjuvant chemotherapy once the acute issues were resolved. She was admitted to [facility] with hypotension and acute kidney injury on June 17. Serum creatinine was 2.75 mg/dL. She was started on hydration and admitted to the intensive care unit after initiating broad-spectrum antibiotics. Blood cultures remained negative. Urine culture showed 10-50,000 colony-forming units of gram-positive cocci. Patient was transitioned to Levaquin and metronidazole. Creatinine normalized. She was discharged and is now being followed at the wound clinic. She underwent excisional debridement of the nonhealing ulcer in the anterior abdominal wall with complex secondary wound closure on 07/18/2015. It was explained to her that 3 layers of sutures are in place. The superficial layer is non-dissolvable whereas the underlying 2 layers are dissolvable. There is a plan for the non-dissolvable sutures to be removed on the through . Previous therapy: 1) Adjuvant carbo/paclitaxel x6 cycles completed 12/2015. She underwent pelvic exam under anesthesia on 12/04/2016. During the procedure she was observed to have a large approximately 7- 8 cm mass in the rectovaginal septum that infiltrated fairly downloaded to the hymenal ring. There was also infiltration along the right vaginal sidewall. Several core biopsies were obtained of the rectovaginal mass in the right vaginal sidewall. Areas revealed a poorly differentiated high-grade malignancy suggestive of malignant melanoma. Immunostains were positive for HMB-45, SOX-10 and [place]-1. CD3, CD20, CD45, CD138, inhibin, [place] 8 and S100 were negative. No BRAF mutation. Patient was admitted to [facility] for fever and malaise. She was found to have Escherichia coli sepsis. She was treated with broad-spectrum antibiotics. Urine appeared to be the source. She also received a 2 unit red blood cell transfusion. She underwent colonoscopy where in she was found to have extensive involvement of the rectum and was thereafter transferred to [facility]. On initial exam was determined that the tumor was significantly larger than it was on initial exam/biopsy. Therefore she underwent a palliative loop colostomy on 01/05. The patient had an unremarkable postoperative course and was discharged on Eliquis 5 mg twice a day and completed ciprofloxacin 14 days from her negative culture. 2) Palliative radiation on 01/26/2017. Current therapy: 1) Nivolumab. Presents for ongoing oncologic management. 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 She's been on topical steroid eyedrops and iritis has improved according to her wildlife biostation research ecologist. She still had persistent retinal edema but on exam yesterday was stable. She received intraocular steroid injection this morning. This was done in an effort to spare her from oral prednisone. She reports that otherwise she's been feeling very well. She is able to read and she feels like her vision hasn't subjectively improved. She's not having any diarrhea or nausea. However she is having a lot of discomfort from the ostomy herniation. It's not constant pain. Her pelvic pain is under good control but she has flares of pain whenever she passes some of the rectal mucus. She is urinating well with no outlet obstructive symptoms, dysuria or gross hematuria. She's had no further vaginal bleeding. PMH, medications and allergies as below personally reviewed by me today. Any changes documented in appropriate section. ROS: Constitutional: Denies episodes of fever and night sweats. Neuro: Denies TANNER, vertigo, dizziness. HEENT: No recent change in voice, vision or hearing. Resp: Denies cough, wheeze and hemoptysis. Denies shortness of breath at rest. CVS: Denies exertional chest pain, PND, orthopnea. Chronic lower extremity edema stable. GI: Denies symptoms of stomatitis. Denies dysphagia and odynophagia. Denies reflux and nausea. : See above. Endo: Denies hot flashes. Denies polyuria and polydipsia. Denies heat and cold intolerance. Musculoskeletal: Denies bone, back, joint and muscular pain. Derm: Denies rash. Denies diffuse pruritis. Heme: See above. Psych: Normal mood. PHYSICAL EXAM: Vitals: Blood pressure 115/56, pulse 79, temperature 36.7 ?C (98.1 ?F), temperature source Oral, weight 96.4 kg (212 lb 8 oz). Well-appearing and in no acute distress. EYES: Sclerae are anicteric bilaterally. Mild conjunctival injection. Eyelashes have lightened in color. NECK: Supple. LYMPHATIC: There is no palpable cervical, supraclavicular adenopathy. RESPIRATORY: Inspiratory breath sounds are of normal intensity in all muir. No rales, wheezes or rhonchi. CARDIOVASCULAR: Rhythm is regular. Normal intensity S1/S2. There is no gallop or murmur. ABDOMEN: The abdomen is nondistended. Ostomy appears healthy. There is stable surrounding herniation, but more tenderness. Remains reducible however. Extremities: Stable lower extremity swelling worse on the left. SKIN: Less swelling and edema bilaterally. No sign of cellulitis. 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 -She is tolerating treatment very well with significant response of the pelvic melanoma. She is having side effects including iritis and retinitis but the symptoms are stable to improving on local steroid therapy. -I discussed the case with her wildlife biostation research ecologist and plan to monitor her very closely throughout her treatment course. If symptoms worsen she will need high-dose prednisone with tapering. -She also mentioned today that she would like a second opinion surgically regarding the ostomy hernia and future potential for possible resection of the primary tumor in the pelvis. Plan: -Okay for continued therapy. -Follow up with wildlife biostation research ecologist a schedule. -Will see if I can get referral to [facility] on surgery and colorectal surgery. 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 -Presently no vaginal bleeding. Plan: -Continue Eliquis 5 mg twice a day. 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 (R10.2) Pelvic pain Assessment/Plan: -Under good control. Plan: -Continue current regimen. Isidro Estevez DO CNOVSP Observed: 08/27/2017 Status: COMPLETED Source: [place] 11:00 AM [facility] REPOSITORY Visit (SP) Office (HEMAWS) KANU AJ ([id number]) 1945 F Date Time Provider Department 08/27/17 11:00 AM ISIDRO ESTEVEZ [facility]EMAWS During your visit today, we recorded the following information about you: Temperature Pulse Blood pressure Weight 98.1 degrees 79/minute 115/56 96.4 kg Shelia Sanchez LPN 08/27/2017 11:16 AM Signed Est patient. Discuss recent labs. Treatment Wednesday. Isidro Roca LPN 08/27/2017 12:22 PM Signed Diagnoses: 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 HPI: The patient is a 71 yo female with a PMH significant for DM2, asthma, VTE, and possible mild CKD as well has hysterectomy ~31 yrs ago who presented to [facility] ED 07/2013 with c/o dyspnea. CT chest significant for large b/l PE. One was a saddle embolus draped across the bifurcation of the main pulmonary artery and extending into both the right and left pulmonary artery segments per the CT report. Patient was transferred to [facility]. Not clear if she underwent thrombolysis. She recalls being discharged on Xarelto and was maintained on that drug until changed to Eliquis per her PCP. She was on that drug when she underwent work up for abdominal pain 03/2015. Underwent CT A/P 04/16/2015 that showed a large complex mass in the pelvis interpreted as arising from the uterus or an ovary and measuring 14.3 x 13.3 x 12.7 cm. It appeared to be well circumscribed not invading other structures. No evidence metastases elsewhere in abdomen. Patient was admitted to [facility] 04/19/2015 for acute left LE small DVT and possible cellulitis of the same leg. She was treated with vancomycin and anticoagulated with Lovenox and transferred to [facility] ([facility] under the care of a gynecologic oncology surgeon, Dr. Sony Monteiro. Underwent surgery 05/03/2015. The final pathology demonstrated that within the RIGHT ovary there was a granulosa cell tumor. The greatest dimension of the ovary was 18 cm. The left fallopian tube was not involved. The omentum was not involved. left ovary and right fallopian tubes were not involved. Tumor was adherent to the left pelvic sidewall. No regional lymph node metastasis was observed. Lymph nodes were removed from the left pelvic, left periaortic areas. Focal angiolymphatic invasion was identified. 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 She was discharged to [facility]. Since the time of surgery, she had been having abdominal pain that is sharp and low in abdomen. It crescendos and is partially relieved with a BM. Returns shortly thereafter. Stools were loose and she had been having intermittent nausea with poor appetite. Was transferred to [facility] 05/09/2015 however for low Hgb of 6.1 g/dL. Received transfusion and admitted to [facility]. She received a blood transfusion. She was discharged back to the nursing facility and subsequent discharge home. She had been doing home physical therapy. She was making improvements. Initially seen here in plan was for adjuvant chemotherapy once the acute issues were resolved. She was admitted to [facility] with hypotension and acute kidney injury on June 17. Serum creatinine was 2.75 mg/dL. She was started on hydration and admitted to the intensive care unit after initiating broad-spectrum antibiotics. Blood cultures remained negative. Urine culture showed 10-50,000 colony-forming units of gram-positive cocci. Patient was transitioned to Levaquin and metronidazole. Creatinine normalized. She was discharged and is now being followed at the wound clinic. She underwent excisional debridement of the nonhealing ulcer in the anterior abdominal wall with complex secondary wound closure on 07/18/2015. It was explained to her that 3 layers of sutures are in place. The superficial layer is non-dissolvable whereas the underlying 2 layers are dissolvable. There is a plan for the non-dissolvable sutures to be removed on the through . Previous therapy: 1) Adjuvant carbo/paclitaxel x6 cycles completed 12/2015. She underwent pelvic exam under anesthesia on 12/04/2016. During the procedure she was observed to have a large approximately 7-8 cm mass in the rectovaginal septum that infiltrated fairly downloaded to the hymenal ring. There was also infiltration along the right vaginal sidewall. Several core biopsies were obtained of the rectovaginal mass in the right vaginal sidewall. Areas revealed a poorly differentiated high-grade malignancy suggestive of malignant melanoma. Immunostains were positive for HMB-45, SOX-10 and [place]-1. CD3, CD20, CD45, CD138, inhibin, [place] 8 and S100 were negative. No BRAF mutation. Patient was admitted to [facility] for fever and malaise. She was found to have Escherichia coli sepsis. She was treated with broad-spectrum antibiotics. Urine appeared to be the source. She also received a 2 unit red blood cell transfusion. She underwent colonoscopy where in she was found to have extensive involvement of the rectum and was thereafter transferred to [facility]. On initial exam was determined that the tumor was significantly larger than it was on initial exam/biopsy. Therefore she underwent a palliative loop colostomy on 01/05. The patient had an unremarkable postoperative course and was discharged on Eliquis 5 mg twice a day and completed ciprofloxacin 14 days from her negative culture. 2) Palliative radiation on 01/26/2017. Current therapy: 1) Nivolumab. Presents for ongoing oncologic management. 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 She's been on topical steroid eyedrops and iritis has improved according to her wildlife biostation research ecologist. She still had persistent retinal edema but on exam yesterday was stable. She received intraocular steroid injection this morning. This was done in an effort to spare her from oral prednisone. She reports that otherwise she's been feeling very well. She is able to read and she feels like her vision hasn't subjectively improved. She's not having any diarrhea or nausea. However she is having a lot of discomfort from the ostomy herniation. It's not constant pain. Her pelvic pain is under good control but she has flares of pain whenever she passes some of the rectal mucus. She is urinating well with no outlet obstructive symptoms, dysuria or gross hematuria. She's had no further vaginal bleeding. PMH, medications and allergies as below personally reviewed by me today. Any changes documented in appropriate section. ROS: Constitutional: Denies episodes of fever and night sweats. Neuro: Denies TANNER, vertigo, dizziness. HEENT: No recent change in voice, vision or hearing. Resp: Denies cough, wheeze and hemoptysis. Denies shortness of breath at rest. CVS: Denies exertional chest pain, PND, orthopnea. Chronic lower extremity edema stable. GI: Denies symptoms of stomatitis. Denies dysphagia and odynophagia. Denies reflux and nausea. : See above. Endo: Denies hot flashes. Denies polyuria and polydipsia. Denies heat and cold intolerance. Musculoskeletal: Denies bone, back, joint and muscular pain. Derm: Denies rash. Denies diffuse pruritis. Heme: See above. Psych: Normal mood. PHYSICAL EXAM: Vitals: Blood pressure 115/56, pulse 79, temperature 36.7 ?C (98.1 ?F), temperature source Oral, weight 96.4 kg (212 lb 8 oz). Well-appearing and in no acute distress. EYES: Sclerae are anicteric bilaterally. Mild conjunctival injection. Eyelashes have lightened in color. NECK: Supple. LYMPHATIC: There is no palpable cervical, supraclavicular adenopathy. RESPIRATORY: Inspiratory breath sounds are of normal intensity in all muir. No rales, wheezes or rhonchi. CARDIOVASCULAR: Rhythm is regular. Normal intensity S1/S2. There is no gallop or murmur. ABDOMEN: The abdomen is nondistended. Ostomy appears healthy. There is stable surrounding herniation, but more tenderness. Remains reducible however. Extremities: Stable lower extremity swelling worse on the left. SKIN: Less swelling and edema bilaterally. No sign of cellulitis. 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 -She is tolerating treatment very well with significant response of the pelvic melanoma. She is having side effects including iritis and retinitis but the symptoms are stable to improving on local steroid therapy. -I discussed the case with her wildlife biostation research ecologist and plan to monitor her very closely throughout her treatment course. If symptoms worsen she will need high-dose prednisone with tapering. -She also mentioned today that she would like a second opinion surgically regarding the ostomy hernia and future potential for possible resection of the primary tumor in the pelvis. Plan: -Okay for continued therapy. -Follow up with wildlife biostation research ecologist a schedule. -Will see if I can get referral to [facility] on surgery and colorectal surgery. 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 -Presently no vaginal bleeding. Plan: -Continue Eliquis 5 mg twice a day. 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 (R10.2) Pelvic pain Assessment/Plan: -Under good control. Plan: -Continue current regimen. Isidro Estevez DO Referring Provider: ISIDRO ESTEVEZ [[id number]] Allergies As of Date: 08/27/2017 Noted Allergy Reaction ASA (ASPIRIN) 05/09/2015 5 - Intolerance Comments: nose bleeds CLINDAMYCIN 05/09/2015 14 - Other: See Comments Comments: jerking, talking funny DEMEROL (MEPERIDINE (PF)) 05/09/2015 8 - GI Upset IODINE 11/23/2016 9 - Itching MORPHINE 05/09/2015 8 - GI Upset VALIUM (DIAZEPAM) 05/09/2015 8 - GI Upset Date Reviewed: 08/27/2017 Reviewed by: Shelia Sanchez LPN - Fully Assessed Reason for Visit: Established Patient [175] Primary Visit Diagnosis:Iron deficiency anemia due to chronic blood loss [D50.0] Other Visit Diagnoses:Vaginal melanoma (HCC) [C52] 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 Take 1/* Patient taking differently: 5 mg twice daily. ONDANSETRON HCL 8 MG TABLET Take 1 tablet by mouth every * PHENERGAN ORAL Take by mouth as needed. FUROSEMIDE 40 MG TABLET Take 40 mg by mouth twice jessica* ASCORBIC ACID (VITAMIN C) 1,0* Take 1,000 mg by mouth once d* METFORMIN 500 MG TABLET Take 1/2 tablet by mouth twic* CYANOCOBALAMIN (VIT B-12) 250* Take 1 tablet by mouth once d* CYCLOBENZAPRINE 10 MG TABLET Take 10 mg by mouth daily at * MULTIVITAMIN-IRON 9 MG-FOLIC * Take 1 tablet by mouth once d* CETIRIZINE 10 MG TABLET Take 10 mg by mouth once kaz* ACETAMINOPHEN 325 MG TABLET Take 325 mg by mouth every 6 * ALBUTEROL SULFATE HFA 90 MCG/* Inhale 2 Puffs as instructed * PREDNISONE 50 MG TABLET Take 1 tablet 13, 7 and 1 valerie* GABAPENTIN 300 MG CAPSULE Take 1 capsule by mouth three* POTASSIUM CHLORIDE ER 10 MEQ * Take 1 tablet by mouth once d* METHYLPREDNISOLONE 4 MG TABLE* As Instructed per package FLUTICASONE-SALMETEROL 230 MC* Inhale 1 Puff as instructed t* Medication notes this encounter OXYCODONE 5 MG TABLET >> Shelia Sanchez LPN 08/27/2017 10:55 AM >> SHELIA SANCHEZ LPN WedAugust 27, 2017 10:55 AM taking Problem List As Of Date 08/27/2017 Noted Resolved 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 Visit Notes: >> Shelia Sanchez LPN WedAugust 27, 2017 10:55 AM Status: Signed Est patient. Discuss recent labs. Treatment Wednesday. Shelia Sanchez SHARIF Encounter Status:Closed by ISIDRO ESTEVEZ DO on 08/27/17 [place] ABS GR + CBC Collected: 08/27/2017 Status: F Source: [place] 10:42 AM [facility] REPOSITORY TYPE CODE TESTS RESULT OUT OF REFERENCE UNITS RANGE LAB WWBC 3.70-11.00 k/uL [place] WBC 6.59 LAB WRBC 3.90-5.20 m/uL [place] RBC 4.16 LAB WHGB 11.5-15.5 g/dL [place] Hemoglobin 12.6 LAB WHCT 36.0-46.0 % [place] Hematocrit 40.1 LAB WMCV 80.0-100.0 fL [place] MCV 96.4 LAB WMCH 26.0-34.0 pg [place] MCH 30.3 LAB WMCHC 30.5-36.0 g/dL [place] MCHC 31.4 LAB WRDW 11.5-15.0 % [place] RDW 13.9 LAB WPLT 150-400 k/uL Low [place] Platelet Cnt 139 LAB WMPV 9.0-12.7 fL [place] MPV 10.6 Result Comment: Test performed at: [facility], [address] [place], [place] [address] [place] [address]. LAB ABGRAN 1.45-7.50 k/uL Absol Gran 5.29 Count COMP METABOLIC PANEL Collected: 08/27/2017 Status: F Source: [place] 10:42 AM [facility] REPOSITORY TYPE CODE TESTS RESULT OUT OF REFERENCE UNITS RANGE LAB TP 6.3-8.0 g/dL Protein, Total 7.3 LAB ALB 3.9-4.9 g/dL Low Albumin 3.8 LAB CA 8.5-10.2 mg/dL Calcium, Total 8.7 LAB TBIL 0.2-1.3 mg/dL Bilirubin, Total 0.6 LAB ALKP 32-117 U/L Alkaline Phosphatase 110 LAB AST 13-35 U/L AST 13 LAB GLU 74-99 mg/dL Glucose High 194 Result Comment: The [place] [employer] (ADA) provides guidance for cutoff values for fasting glucose and random glucose. The ADA defines fasting as no caloric intake for at least 8 hours. Fas ting plasma glucose results between 100 to 125 mg/dL indicate increased risk for diabetes (prediabetes). Fasting plasma glucose results greater than or equal to 126 mg/dL meet the criteria for diagnosis of diabetes. In the absence of unequivocal hyperglycemia, results should be confirmed by repeat testing. In a patient with classic symptoms of hyperglycemia or hyperglycemic crisis, random plasma glucose results greater than or equal to 200 mg/dL meet the criteria for diagnosis of diabetes. Reference: Standards of Medical Care in Diabetes 2016, [place] [employer]. Diabetes Care. 2016.39(Suppl 1). LAB BUN 7-21 mg/dL BUN High 44 LAB CRET 0.58-0.96 mg/dL Creatinine High 2.87 LAB NA 136-144 mmol/L Sodium 138 LAB K 3.7-5.1 mmol/L Potassium 3.8 LAB CL 97-105 mmol/L Low Chloride 96 LAB CO2 22-30 mmol/L CO2 27 LAB AGAP 9-18 mmol/L Anion Gap 15 LAB ALT 7-38 U/L ALT 11 LAB GFRAA eGFR- Amer. 20 LAB GFRNAA . eGFR-All Other Races 16 Result Comment: eGFR (Estimated GFR) Units of measure: mL/min/1.73 meters squared eGFR is derived from the reexpressed MDRD Study equation using the following parameters: serum creatinine, age, gender and race. The creatinine assay has been calibrated to be traceable to IDMS. An eGFR <60 mL/min/1.73m2 for >3 months is consistent with chronic kidney disease. Refer to KDOQI guidelines for clinical interpretation. In patients with unstable renal function, e.g. those with acute kidney injury, the eGFR may not accurately reflect actual GFR. Performed By: #### CMP #### [facility] [address] [place], [place] [address] ERYTHROCYTE SED RATE Collected: 08/03/2017 Status: F Source: [place] 11:21 AM [facility] [place] TYPE CODE TESTS RESULT OUT OF RANGE REFERENCE UNITS LAB L102.0000 0-30 mm/hr Normal SED RATE 22 Performed By: #### L101.9900 #### [facility] [address]. [place], [place], [address] RHEUMATOID FACTOR Collected: 08/03/2017 Status: F Source: [place] 11:21 AM [facility] [place] [place] TYPE CODE TESTS RESULT OUT OF RANGE REFERENCE UNITS LAB L505.7010 <15 IU/mL Normal RHEUMATOID FAC < 10.0 Performed By: #### L505.7010 #### [facility] [address]. [place], [place], [address] ANTINUCLEAR ANTIBODY, Collected: 08/03/2017 Status: F Source: [place] IFA 11:21 AM [facility] [place] TYPE CODE TESTS RESULT OUT OF RANGE REFERENCE UNITS LAB L3100.8000 Normal LAW test Result Comment: TEST RESULT LIMITS Antinuclear Antibodies, IFA Antinuclear Antibodies, IFA Positive Abnormal Negative <1:80 Borderline 1:80 Positive >1:80 Homogeneous Pattern 1:160 High Note: A positive LAW result may occur in healthy individuals (low titer) or be associated with a variety of diseases. See interpretation chart which is not all inclusive: Pattern Antigen Detected Suggested Disease Association Homogeneous DNA(ds,ss), SLE - High titers Nucleosomes, Histones Drug-induced SLE Speckled Sm, DINING CAR CONDUCTOR, SCL-70, SLE,MCTD,PSS (diffuse form), SS-A/SS-B Sjogrens Nucleolar SCL-70, PM-1/SCL High titers Scleroderma, PM/DM Centromere Centromere PSS (limited form) w/Crest syndrome variable Nuclear Dot Sp100,o51-cltdsl Primary Biliary Cirrhosis Nuclear GP210, Primary Biliary Membrane makenna A,B,C Cirrhosis TESTING PERFORMED AT [facility]. ORIGINAL REPORT ON FILE IN LAB CONTAINS ADDITIONAL TEST SITE INFORMATION. Performed By: #### L3100.7950 #### [facility] (refer to report for specific site) refer to report for address and phone number RAPID PLASMIN REAGIN Collected: 08/03/2017 Status: F Source: [place] (RPR) 11:21 AM [facility] [place] TYPE CODE TESTS RESULT OUT OF REFERENCE UNITS RANGE LAB L700.5000 NONREACTIVE NONREACTIVE Normal RPR Performed By: #### L700.5000 #### [facility] [address] [place], [address] HLA B27 Collected: 08/03/2017 Status: F Source: [place] 11:21 AM [facility] [place] [place] TYPE CODE TESTS RESULT OUT OF RANGE REFERENCE UNITS LAB L3410.1500 . Normal HLA Negative B27 Result Comment: HLA-B*27 Negative B27 allele interpretation for all loci based on IMGT/HLA database version 3.27 This test was developed and its performance characteristics determined by [facility]. It has not been cleared or approved by the Food and Drug Administration. [facility] CLIA ID Number [id number] This test was performed using PCR (Polymerase Chain Reaction)/SSOP (Sequence Specific Oligonucleotide Probes) technique. SBT (Sequence Based Typing) and/or SSP (Sequence Specific Primers) may be used as supplemental methods when necessary. Please contact [facility] Customer Service at if you have any questions. Director of [facility] Dr Artur Ayala, PhD Performed at: [address] [id number] It Service Continuity Supervisor: Artur Ayaal PhD, Phone: [phone] Performed By: #### L3410.1400 #### [facility] (refer to report for specific site) refer to report for address and phone number PROGRESS Observed: 07/30/2017 Status: COMPLETED Source: [place] 11:44 AM [facility] REPOSITORY HNO ID: [id number] Author: Isidro Estevez Service: (none) Author Type: Physician Type: Progress Notes Filed: 07/30/2017 2:34 PM Note Text: Diagnoses: 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 HPI: The patient is a 71 yo female with a PMH significant for DM2, asthma, VTE, and possible mild CKD as well has hysterectomy ~31 yrs ago who presented to [facility] 07/2013 with c/o dyspnea. CT chest significant for large b/l PE. One was a saddle embolus draped across the bifurcation of the main pulmonary artery and extending into both the right and left pulmonary artery segments per the CT report. Patient was transferred to [facility]. Not clear if she underwent thrombolysis. She recalls being discharged on Xarelto and was maintained on that drug until changed to Eliquis per her PCP. She was on that drug when she underwent work up for abdominal pain 03/2015. Underwent CT A/P 04/16/2015 that showed a large complex mass in the pelvis interpreted as arising from the uterus or an ovary and measuring 14.3 x 13.3 x 12.7 cm. It appeared to be well circumscribed not invading other structures. No evidence metastases elsewhere in abdomen. Patient was admitted to [facility] 04/19/2015 for acute left LE small DVT and possible cellulitis of the same leg. She was treated with vancomycin and anticoagulated with Lovenox and transferred to [facility] ([facility]) under the care of a gynecologic oncology surgeon, Dr. Sony Monteiro. Underwent surgery 05/03/2015. The final pathology demonstrated that within the RIGHT ovary there was a granulosa cell tumor. The greatest dimension of the ovary was 18 cm. The left fallopian tube was not involved. The omentum was not involved. left ovary and right fallopian tubes were not involved. Tumor was adherent to the left pelvic sidewall. No regional lymph node metastasis was observed. Lymph nodes were removed from the left pelvic, left periaortic areas. Focal angiolymphatic invasion was identified. 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 She was discharged to [facility]. Since the time of surgery, she had been having abdominal pain that is sharp and low in abdomen. It crescendos and is partially relieved with a BM. Returns shortly thereafter. Stools were loose and she had been having intermittent nausea with poor appetite. Was transferred to [facility] [place] 05/09/2015 however for low Hgb of 6.1 g/dL. Received transfusion and admitted to [facility]. She received a blood transfusion. She was discharged back to the nursing facility and subsequent discharge home. She had been doing home physical therapy. She was making improvements. Initially seen here in plan was for adjuvant chemotherapy once the acute issues were resolved. She was admitted to [facility] with hypotension and acute kidney injury on June 17. Serum creatinine was 2.75 mg/dL. She was started on hydration and admitted to the intensive care unit after initiating broad-spectrum antibiotics. Blood cultures remained negative. Urine culture showed 10-50,000 colony-forming units of gram-positive cocci. Patient was transitioned to Levaquin and metronidazole. Creatinine normalized. She was discharged and is now being followed at the wound clinic. She underwent excisional debridement of the nonhealing ulcer in the anterior abdominal wall with complex secondary wound closure on 07/18/2015. It was explained to her that 3 layers of sutures are in place. The superficial layer is non-dissolvable whereas the underlying 2 layers are dissolvable. There is a plan for the non-dissolvable sutures to be removed on the through . Previous therapy: 1) Adjuvant carbo/paclitaxel x6 cycles completed 12/2015. She underwent pelvic exam under anesthesia on 12/04/2016. During the procedure she was observed to have a large approximately 7- 8 cm mass in the rectovaginal septum that infiltrated fairly downloaded to the hymenal ring. There was also infiltration along the right vaginal sidewall. Several core biopsies were obtained of the rectovaginal mass in the right vaginal sidewall. Areas revealed a poorly differentiated high-grade malignancy suggestive of malignant melanoma. Immunostains were positive for HMB-45, SOX-10 and [place]-1. CD3, CD20, CD45, CD138, inhibin, [place] 8 and S100 were negative. No BRAF mutation. Patient was admitted to [facility] for fever and malaise. She was found to have Escherichia coli sepsis. She was treated with broad-spectrum antibiotics. Urine appeared to be the source. She also received a 2 unit red blood cell transfusion. She underwent colonoscopy where in she was found to have extensive involvement of the rectum and was thereafter transferred to [facility]. On initial exam was determined that the tumor was significantly larger than it was on initial exam/biopsy. Therefore she underwent a palliative loop colostomy on 01/05. The patient had an unremarkable postoperative course and was discharged on Eliquis 5 mg twice a day and completed ciprofloxacin 14 days from her negative culture. 2) Palliative radiation on 01/26/2017. Current therapy: 1) Nivolumab. Presents for ongoing oncologic management. Interim history: Her cataracts have worsened and she is a little hard time seeing. She said it started off a while ago that she was able to read very well but this is progress. She was seen by her washing machine repairer last week who also noticed that she had mild bilateral iritis with the left eye being worse than the right. She has no other symptoms to suggest an autoimmune reaction. She is going to be seeing an wildlife biostation research ecologist this coming Wednesday for discussion of cataract surgery. Her pelvic pain is under good control with the current analgesic regimen. Her appetite is been doing pretty well. She still having some discomfort around the stoma site from the hernia. Lower extremity swelling is stable. No vaginal bleeding. No unusual bleeding or unexplained bruising otherwise. PMH, medications and allergies as below personally reviewed by me today. Any changes documented in appropriate section. ROS: Constitutional: Denies episodes of fever and night sweats. Neuro: Denies TANNER, vertigo, dizziness. HEENT: No recent change in voice, vision or hearing. Resp: Denies cough, wheeze and hemoptysis. Denies shortness of breath at rest. CVS: Denies exertional chest pain, PND, orthopnea. Chronic lower extremity edema stable. GI: Denies symptoms of stomatitis. Denies dysphagia and odynophagia. Denies reflux and nausea. : See above. Endo: Denies hot flashes. Denies polyuria and polydipsia. Denies heat and cold intolerance. Musculoskeletal: Denies bone, back, joint and muscular pain. Derm: Denies rash. Denies diffuse pruritis. Heme: See above. Psych: Normal mood. PHYSICAL EXAM: Vitals: Blood pressure 124/65, pulse 82, temperature 36.8 ?C (98.2 ?F), weight 96.4 kg (212 lb 8 oz). Well-appearing and in no acute distress. EYES: Sclerae are anicteric bilaterally. Mild conjunctival injection. Eyelashes have lightened in color. NECK: Supple. LYMPHATIC: There is no palpable cervical, supraclavicular adenopathy. RESPIRATORY: Inspiratory breath sounds are of normal intensity in all muir. No rales, wheezes or rhonchi. CARDIOVASCULAR: Rhythm is regular. Normal intensity S1/S2. There is no gallop or murmur. ABDOMEN: The abdomen is nondistended. Ostomy appears healthy. There is more stable surrounding herniation. Extremities: Stable lower extremity swelling particularly on the left. SKIN: Less swelling and edema bilaterally. No sign of cellulitis. 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 -She is tolerating nivolumab well. -I personally reviewed CT images and again with patient and independently verified and agreed with the radiologist's findings. SD. -Discussed plan to continue therapy for now. She will be seeing her char conveyor tender surgeon in a couple weeks. Considering takedown of the ostomy and repair of the hernia. -May consider palliative surgery to the primary tumor at some point in the future. Plan: -Okay for continued therapy. 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 -Presently no vaginal bleeding. Plan: -Continue Eliquis 5 mg twice a day. 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 (R10.2) Pelvic pain Assessment/Plan: -Under good control. Plan: -Continue current regimen. Iritis. -Discussed with her washing machine repairer. Also discussed with the patient. She feels her symptoms have been more insidious and perhaps predate the use about the low. For now I'm comfortable continuing therapy but will discuss her case with her wildlife biostation research ecologist next Wednesday. Isidro Estevez DO CNOVSP Observed: 07/30/2017 Status: COMPLETED Source: [place] 11:20 AM [facility] REPOSITORY Visit (SP) Office ([place]) KANU AJ ([id number]) 1945 F Date Time Provider Department 07/30/17 11:20 AM ISDIRO ESTEVEZ During your visit today, we recorded the following information about you: Temperature Pulse Blood pressure Weight 98.2 degrees 82/minute 124/65 96.4 kg Shelia Sanchez SHARIF 07/30/2017 11:52 AM Signed Est patient. Discuss recent labs. Shelia Laura Estevez DO 07/30/2017 2:34 PM Signed Diagnoses: 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 HPI: The patient is a 71 yo female with a PMH significant for DM2, asthma, VTE, and possible mild CKD as well has hysterectomy ~31 yrs ago who presented to [facility] ED 07/2013 with c/o dyspnea. CT chest significant for large b/l PE. One was a saddle embolus draped across the bifurcation of the main pulmonary artery and extending into both the right and left pulmonary artery segments per the CT report. Patient was transferred to [facility]. Not clear if she underwent thrombolysis. She recalls being discharged on Xarelto and was maintained on that drug until changed to Eliquis per her PCP. She was on that drug when she underwent work up for abdominal pain 03/2015. Underwent CT A/P 04/16/2015 that showed a large complex mass in the pelvis interpreted as arising from the uterus or an ovary and measuring 14.3 x 13.3 x 12.7 cm. It appeared to be well circumscribed not invading other structures. No evidence metastases elsewhere in abdomen. Patient was admitted to [facility] 04/19/2015 for acute left LE small DVT and possible cellulitis of the same leg. She was treated with vancomycin and anticoagulated with Lovenox and transferred to [facility] under the care of a gynecologic oncology surgeon, Dr. Sony Monteiro. Underwent surgery 05/03/2015. The final pathology demonstrated that within the RIGHT ovary there was a granulosa cell tumor. The greatest dimension of the ovary was 18 cm. The left fallopian tube was not involved. The omentum was not involved. left ovary and right fallopian tubes were not involved. Tumor was adherent to the left pelvic sidewall. No regional lymph node metastasis was observed. Lymph nodes were removed from the left pelvic, left periaortic areas. Focal angiolymphatic invasion was identified. 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 She was discharged to [facility]. Since the time of surgery, she had been having abdominal pain that is sharp and low in abdomen. It crescendos and is partially relieved with a BM. Returns shortly thereafter. Stools were loose and she had been having intermittent nausea with poor appetite. Was transferred to [facility] 05/09/2015 however for low Hgb of 6.1 g/dL. Received transfusion and admitted to [facility]. She received a blood transfusion. She was discharged back to the nursing facility and subsequent discharge home. She had been doing home physical therapy. She was making improvements. Initially seen here in plan was for adjuvant chemotherapy once the acute issues were resolved. She was admitted to [facility] with hypotension and acute kidney injury on June 17. Serum creatinine was 2.75 mg/dL. She was started on hydration and admitted to the intensive care unit after initiating broad-spectrum antibiotics. Blood cultures remained negative. Urine culture showed 10-50,000 colony-forming units of gram-positive cocci. Patient was transitioned to Levaquin and metronidazole. Creatinine normalized. She was discharged and is now being followed at the wound clinic. She underwent excisional debridement of the nonhealing ulcer in the anterior abdominal wall with complex secondary wound closure on 07/18/2015. It was explained to her that 3 layers of sutures are in place. The superficial layer is non-dissolvable whereas the underlying 2 layers are dissolvable. There is a plan for the non-dissolvable sutures to be removed on the through . Previous therapy: 1) Adjuvant carbo/paclitaxel x6 cycles completed 12/2015. She underwent pelvic exam under anesthesia on 12/04/2016. During the procedure she was observed to have a large approximately 7-8 cm mass in the rectovaginal septum that infiltrated fairly downloaded to the hymenal ring. There was also infiltration along the right vaginal sidewall. Several core biopsies were obtained of the rectovaginal mass in the right vaginal sidewall. Areas revealed a poorly differentiated high-grade malignancy suggestive of malignant melanoma. Immunostains were positive for HMB-45, SOX-10 and [place]-1. CD3, CD20, CD45, CD138, inhibin, [place] 8 and S100 were negative. No BRAF mutation. Patient was admitted to [facility] for fever and malaise. She was found to have Escherichia coli sepsis. She was treated with broad-spectrum antibiotics. Urine appeared to be the source. She also received a 2 unit red blood cell transfusion. She underwent colonoscopy where in she was found to have extensive involvement of the rectum and was thereafter transferred to [facility]. On initial exam was determined that the tumor was significantly larger than it was on initial exam/biopsy. Therefore she underwent a palliative loop colostomy on 01/05. The patient had an unremarkable postoperative course and was discharged on Eliquis 5 mg twice a day and completed ciprofloxacin 14 days from her negative culture. 2) Palliative radiation on 01/26/2017. Current therapy: 1) Nivolumab. Presents for ongoing oncologic management. Interim history: Her cataracts have worsened and she is a little hard time seeing. She said it started off a while ago that she was able to read very well but this is progress. She was seen by her washing machine repairer last week who also noticed that she had mild bilateral iritis with the left eye being worse than the right. She has no other symptoms to suggest an autoimmune reaction. She is going to be seeing an wildlife biostation research ecologist this coming Wednesday for discussion of cataract surgery. Her pelvic pain is under good control with the current analgesic regimen. Her appetite is been doing pretty well. She still having some discomfort around the stoma site from the hernia. Lower extremity swelling is stable. No vaginal bleeding. No unusual bleeding or unexplained bruising otherwise. PMH, medications and allergies as below personally reviewed by me today. Any changes documented in appropriate section. ROS: Constitutional: Denies episodes of fever and night sweats. Neuro: Denies TANNER, vertigo, dizziness. HEENT: No recent change in voice, vision or hearing. Resp: Denies cough, wheeze and hemoptysis. Denies shortness of breath at rest. CVS: Denies exertional chest pain, PND, orthopnea. Chronic lower extremity edema stable. GI: Denies symptoms of stomatitis. Denies dysphagia and odynophagia. Denies reflux and nausea. : See above. Endo: Denies hot flashes. Denies polyuria and polydipsia. Denies heat and cold intolerance. Musculoskeletal: Denies bone, back, joint and muscular pain. Derm: Denies rash. Denies diffuse pruritis. Heme: See above. Psych: Normal mood. PHYSICAL EXAM: Vitals: Blood pressure 124/65, pulse 82, temperature 36.8 ?C (98.2 ?F), weight 96.4 kg (212 lb 8 oz). Well-appearing and in no acute distress. EYES: Sclerae are anicteric bilaterally. Mild conjunctival injection. Eyelashes have lightened in color. NECK: Supple. LYMPHATIC: There is no palpable cervical, supraclavicular adenopathy. RESPIRATORY: Inspiratory breath sounds are of normal intensity in all muir. No rales, wheezes or rhonchi. CARDIOVASCULAR: Rhythm is regular. Normal intensity S1/S2. There is no gallop or murmur. ABDOMEN: The abdomen is nondistended. Ostomy appears healthy. There is more stable surrounding herniation. Extremities: Stable lower extremity swelling particularly on the left. SKIN: Less swelling and edema bilaterally. No sign of cellulitis. 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 -She is tolerating nivolumab well. -I personally reviewed CT images and again with patient and independently verified and agreed with the radiologist's findings. SD. -Discussed plan to continue therapy for now. She will be seeing her char conveyor tender surgeon in a couple weeks. Considering takedown of the ostomy and repair of the hernia. -May consider palliative surgery to the primary tumor at some point in the future. Plan: -Okay for continued therapy. 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 -Presently no vaginal bleeding. Plan: -Continue Eliquis 5 mg twice a day. 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 (R10.2) Pelvic pain Assessment/Plan: -Under good control. Plan: -Continue current regimen. Iritis. -Discussed with her washing machine repairer. Also discussed with the patient. She feels her symptoms have been more insidious and perhaps predate the use about the low. For now I'm comfortable continuing therapy but will discuss her case with her wildlife biostation research ecologist next Wednesday. 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 Take 1/* Patient taking differently: 5 mg twice daily. ONDANSETRON HCL 8 MG TABLET Take 1 tablet by mouth every * PHENERGAN ORAL Take by mouth as needed. FUROSEMIDE 40 MG TABLET Take 40 mg by mouth twice jessica* ASCORBIC ACID (VITAMIN C) 1,0* Take 1,000 mg by mouth once d* METFORMIN 500 MG TABLET Take 1/2 tablet by mouth twic* CYANOCOBALAMIN (VIT B-12) 250* Take 1 tablet by mouth once d* CYCLOBENZAPRINE 10 MG TABLET Take 10 mg by mouth daily at * MULTIVITAMIN-IRON 9 MG-FOLIC * Take 1 tablet by mouth once d* CETIRIZINE 10 MG TABLET Take 10 mg by mouth once kaz* ACETAMINOPHEN 325 MG TABLET Take 325 mg by mouth every 6 * ALBUTEROL SULFATE HFA 90 MCG/* Inhale 2 Puffs as instructed * PREDNISONE 50 MG TABLET Take 1 tablet 13, 7 and 1 valerie* GABAPENTIN 300 MG CAPSULE Take 1 capsule by mouth three* POTASSIUM CHLORIDE ER 10 MEQ * Take 1 tablet by mouth once d* METHYLPREDNISOLONE 4 MG TABLE* As Instructed per package FLUTICASONE-SALMETEROL 230 MC* Inhale 1 Puff as instructed t* Medication notes this encounter APIXABAN 5 MG TABLET >> Shelia Sanchez LPN 07/30/2017 11:22 AM >> SHELIA SANCHEZ LPN WedJul 30, 2017 11:22 AM Takes 1/2 tab twice a day PREDNISONE 50 MG TABLET >> Shelia Sanchez LPN 07/30/2017 11:23 AM >> SHELIA SANCHEZ LPN WedJul 30, 2017 11:23 AM completed GABAPENTIN 300 MG CAPSULE >> Shelia Sanchez LPN 07/30/2017 11:23 AM >> SHELIA SANCHEZ LPN WedJul 30, 2017 11:23 AM discontinued Problem List As Of Date 07/30/2017 Noted Resolved 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 Visit Notes: >> Shelia Sanchez LPN WedJul 30, 2017 11:24 AM Status: Signed Est patient. Discuss recent labs. Shelia Sanchez LPN Encounter Status:Closed by ISIDRO ESTEVEZ DO on 07/30/17 [place] ABS GR + CBC Collected: 07/30/2017 Status: F Source: [place] 11:15 AM [facility] REPOSITORY TYPE CODE TESTS RESULT OUT OF REFERENCE UNITS RANGE LAB WWBC 3.70-11.00 k/uL [place] WBC 5.12 LAB WRBC 3.90-5.20 m/uL [place] RBC 4.15 LAB WHGB 11.5-15.5 g/dL [place] Hemoglobin 12.6 LAB WHCT 36.0-46.0 % [place] Hematocrit 40.4 LAB WMCV 80.0-100.0 fL [place] MCV 97.3 LAB WMCH 26.0-34.0 pg [place] MCH 30.4 LAB WMCHC 30.5-36.0 g/dL [place] MCHC 31.2 LAB WRDW 11.5-15.0 % [place] RDW 14.0 LAB WPLT 150-400 k/uL [place] Platelet Cnt 164 LAB WMPV 9.0-12.7 fL [place] MPV 9.8 Result Comment: Test performed at: [facility], [address] [place] [address] Rd[address] [place] [address]. LAB ABGRAN 1.45-7.50 k/uL Absol Gran 3.61 Count COMP METABOLIC PANEL Collected: 07/30/2017 Status: F Source: [place] 11:15 AM [facility] REPOSITORY TYPE CODE TESTS RESULT OUT OF REFERENCE UNITS RANGE LAB TP 6.3-8.0 g/dL Protein, Total 7.3 LAB ALB 3.9-4.9 g/dL Albumin 4.1 LAB CA 8.5-10.2 mg/dL Calcium, Total 9.3 LAB TBIL 0.2-1.3 mg/dL Bilirubin, Total 0.6 LAB ALKP 32-117 U/L Alkaline Phosphatase 97 LAB AST 13-35 U/L AST 13 LAB GLU 74-99 mg/dL Glucose High 129 Result Comment: The [place] [employer] (ADA) provides guidance for cutoff values for fasting glucose and random glucose. The ADA defines fasting as no caloric intake for at least 8 hours. Fas ting plasma glucose results between 100 to 125 mg/dL indicate increased risk for diabetes (prediabetes). Fasting plasma glucose results greater than or equal to 126 mg/dL meet the criteria for diagnosis of diabetes. In the absence of unequivocal hyperglycemia, results should be confirmed by repeat testing. In a patient with classic symptoms of hyperglycemia or hyperglycemic crisis, random plasma glucose results greater than or equal to 200 mg/dL meet the criteria for diagnosis of diabetes. Reference: Standards of Medical Care in Diabetes 2016, [place] [employer]. Diabetes Care. 2016.39(Suppl 1). LAB BUN 7-21 mg/dL BUN High 41 LAB CRET 0.58-0.96 mg/dL Creatinine High 1.68 LAB NA 136-144 mmol/L Sodium 141 LAB K 3.7-5.1 mmol/L Potassium 4.1 LAB CL 97-105 mmol/L Chloride 102 LAB CO2 22-30 mmol/L CO2 24 LAB AGAP 9-18 mmol/L Anion Gap 15 LAB ALT 7-38 U/L ALT 9 LAB GFRAA eGFR- Amer. 36 LAB GFRNAA . eGFR-All Other Races 30 Result Comment: eGFR (Estimated GFR) Units of measure: mL/min/1.73 meters squared eGFR is derived from the reexpressed MDRD Study equation using the following parameters: serum creatinine, age, gender and race. The creatinine assay has been calibrated to be traceable to IDMS. An eGFR <60 mL/min/1.73m2 for >3 months is consistent with chronic kidney disease. Refer to KDOQI guidelines for clinical interpretation. In patients with unstable renal function, e.g. those with acute kidney injury, the eGFR may not accurately reflect actual GFR. Performed By: #### CMP #### [facility] [address], [place] [address] CT ABD/PEL W IVCON Observed: 07/28/2017 Status: F Source: [place] 12:32 PM [facility] REPOSITORY * * *Final Report* * * DATE OF EXAM: Jul 28 2017 12:32PM [facility] 0530 - CT ABD/PEL W IVCON / PROCEDURE REASON: multiple diagnoses * * * * Physician Interpretation * * * * EXAMINATION: CT ABDOMEN AND PELVIS WITH IV CONTRAST CLINICAL HISTORY: Ovarian cancer and vaginal melanoma, follow-up TECHNIQUE: CT of the abdomen and pelvis was performed using standard technique, scanning from just above the dome of the diaphragm to the symphysis pubis. MQ: CTAP_3 Contrast: IV: 145 ml of Omnipaque 300 Oral: 50 ml of 50ML Omnipaque [address] Radiation dose: Integrated Dose-length product (DLP) for this visit = 1354 mGy*cm. CT Dose Reduction Employed: Automated exposure control (AEC) COMPARISON: 02/18/2017 RESULT: Liver: No mass. Biliary: No bile duct dilation. Cholecystectomy Spleen: No mass. No splenomegaly. Pancreas: Stable 1.2 cm pancreatic tail lesion, likely a small intraductal papillary mucinous neoplasm. No new mass or duct dilation. Adrenals: No mass. Kidneys: Stable bilateral renal calculi. No hydronephrosis. Stable 1 cm RIGHT interpolar cyst (8:75) GI tract: No dilation or wall thickening. Lymph nodes: Index lymphadenopathy as follows: * 1.0 x 0.9 cm RIGHT common iliac chain lymph node (8:99), stable * 1.1 x 1.1 cm LEFT posterior external iliac chain lymph node (8 113), unchanged * 2.1 x 1.8 cm RIGHT posterior external iliac chain lymph node (8 123), previously 1.8 x 1.8 cm * 1.3 x 1.2 cm RIGHT anterior external iliac chain lymph node (8:126), previously 1.6 x 1.5 cm * 1.4 x 1.1 cm RIGHT mesorectal lymph node (8:117) no longer present * 0.9 x 0.8 cm LEFT mesorectal lymph node no longer present * 1.2 x 1.2 cm presacral lymph node (9:163) has returned to normal size Mesentery/Peritoneum: No ascites or mass Retroperitoneum: No mass. Vasculature: Thrombus above the IVC filter is unchanged (8:52 and coronal: 54). Pelvis: Artifact from RIGHT hip prosthesis degrades images of the lower pelvis. Previously seen vaginal/vulvar lesion is not as well-visualized today, likely due to a greater degree of artifact. Bones/Soft Tissues: Degenerative changes. No neoplastic bone disease. Lower thorax: A chest CT was performed and will be reported separately. IMPRESSION: PREVIOUS MILDLY ENLARGED PELVIC LYMPH NODES ARE STABLE TO DECREASED IN SIZE IN THE INTERVAL THE VAGINAL VULVAR LESION SEEN PREVIOUSLY IS NOT DISCRETELY IDENTIFIED TODAY, BUT THIS MAY BE DUE TO STREAK ARTIFACT STABLE NONOCCLUSIVE IVC THROMBUS ABOVE THE LEVEL OF THE FILTER Medical Front Desk Coordinator: DYLLAN Transcribe Date/Time: Jul 29 2017 10:53A Dictated by : CATHY DAWSON MD This examination was interpreted and the report reviewed and electronically signed by: CATHY DAWSON MD on Jul 29 2017 11:14AM EST [id number] CT CHEST W IVCON Observed: 07/28/2017 Status: F Source: [place] 12:32 PM [facility] REPOSITORY * * *Final Report* * * DATE OF EXAM: Jul 28 2017 12:32PM [facility] 0539 - CT CHEST W IVCON / PROCEDURE REASON: multiple diagnoses * * * * Physician Interpretation * * * * EXAMINATION: CHEST CT WITH CONTRAST Indication: Malignant neoplasm of vagina Secondary malignant neoplasm of retroperitoneum and peritoneum Malignant neoplasm of left ovary Pelvic and perineal pain Technique: Spiral CT acquisition of the chest from the thoracic inlet to the upper abdomen following IV contrast. MQ: CTCWR_5 Contrast: 145 mL Omnipaque [address] Dose-Length Product: 1354 mGy*cm CT Dose Reduction Employed: Automated exposure control (AEC) Comparison: CT Chest on 02/18/2017 RESULT: Limitations: None. Lines, tubes, and devices: None. Lung parenchyma and pleura: The central airways are patent. There is persistent elevation of the left hemidiaphragm with associated atelectasis in the left lung base, unchanged. A band like opacity in the right lower lobe is also relate to atelectases. No suspicious pulmonary nodules. No masses. No pleural effusions or pneumothorax. Thoracic inlet, heart, and mediastinum: 1 cm right thyroid nodules are demonstrated, likely unchanged. No lymphadenopathy in the axillary, mediastinal, or hilar regions. The thoracic aorta and main pulmonary arteries are normal in caliber. The cardiac chambers are normal in size. Punctate coronary artery atherosclerotic calcifications are noted, although the study is not optimized for coronary assessment. No pericardial effusion or thickening. Bones and soft tissues: No destructive bone lesion. The spine shows extensive degenerative changes. Chest wall soft tissue remain unremarkable. Upper abdomen: A dedicated CT abdomen and pelvis was performed concurrently and has been reported separately. IMPRESSION: No CT evidence of metastatic disease in the chest. Persistent elevation of the left hemidiaphragm with associated left basilar atelectasis, similar to prior study. Medical Front Desk Coordinator: DYLLAN Transcribe Date/Time: Jul 30 2017 10:07A Dictated by : MIKE OCHOA MD This examination was interpreted and the report reviewed and electronically signed by: MIKE OCHOA MD on Jul 30 2017 4:05PM EST [id number] PROGRESS Observed: 07/28/2017 Status: COMPLETED Source: [place] 12:10 PM [facility] REPOSITORY HNO ID: [id number] Author: Carlyn Ledezma [address]oney [address] Service: (none) Author Type: (none) Type: Progress Notes Filed: 07/28/2017 12:17 PM Note Text: Radiology Service Progress Note PATIENT NAME: Kanu Aj DATE OF SERVICE: July 28, 2017 TIME: 12:10 PM PATIENT IDENTITY VERIFICATION COMPLETED USING TWO (2) METHODS: Patient confirmed name verbally and Date of . PATIENT GENDER DATA: Female. status: : No status: NO. PATIENT RELEVANT IMPLANT DATA REVIEWED: Not Applicable CONTRAST INDUCED NEPHROPATHY RISK FACTORS: Patient age > 60 years CREATININE: Creatinine Date Value Ref Range Status 07/02/2017 1.21 (H) 0.58 - 0.96 mg/dL Final 06/07/2017 1.34 (H) 0.58 - 0.96 mg/dL Final 05/10/2017 1.55 (H) 0.58 - 0.96 mg/dL Final eGFR-All Other Races Date Value Ref Range Status 07/02/2017 44 . Final Comment: eGFR (Estimated GFR) Units of measure: mL/min/1.73 meters squared eGFR is derived from the reexpressed MDRD Study equation using the following parameters: serum creatinine, age, gender and race. The creatinine assay has been calibrated to be traceable to IDMS. An eGFR <60 mL/min/1.73m2 for >3 months is consistent with chronic kidney disease. Refer to KDOQI guidelines for clinical interpretation. In patients with unstable renal function, e.g. those with acute kidney injury, the eGFR may not accurately reflect actual GFR. eGFR- Date Value Ref Range Status 07/02/2017 53 Final P.O.C.T. RESULTS: POC done: Yes, See Lab Tab July 28, 2017 RADIOLOGIST NOTIFIED?: Yes IV Hydration: Normal Saline solution 500 ml over 1 hours. ALLERGIES: Reviewed and unchanged CONTRAST ALLERGY: NO. PERIPHERAL IV ACCESS: Ambulatory: IV type: Existing peripheral IV utilized, Site assessment: Clean,Dry and Intact, Site disposition Discontinued RADIOLOGY DEPARTMENT: CT; Exam(s) Completed: Chest Abdomen Pelvis SIGNED BY: Carlyn Mooney Ct July 28, 2017 12:10 PM PROGRESS Observed: 07/28/2017 Status: COMPLETED Source: [place] 10:19 AM [facility] REPOSITORY O ID: [id number] Author: Natali Tam (Rt) Service: (none) Author Type: Assistant Professor Of Sociology Type: Progress Notes Filed: 07/28/2017 10:20 AM Note Text: Radiology Service Progress Note PATIENT NAME: Kanu Aj DATE OF SERVICE: July 28, 2017 TIME: 10:19 AM PATIENT IDENTITY VERIFICATION COMPLETED USING TWO (2) METHODS: Patient confirmed name verbally and Date of . PATIENT GENDER DATA: Female. status: : No status: NO. PATIENT RELEVANT IMPLANT DATA REVIEWED: Yes CONTRAST INDUCED NEPHROPATHY RISK FACTORS: Patient age > 60 years CREATININE: Creatinine Date Value Ref Range Status 07/02/2017 1.21 (H) 0.58 - 0.96 mg/dL Final 06/07/2017 1.34 (H) 0.58 - 0.96 mg/dL Final 05/10/2017 1.55 (H) 0.58 - 0.96 mg/dL Final eGFR-All Other Races Date Value Ref Range Status 07/02/2017 44 . Final Comment: eGFR (Estimated GFR) Units of measure: mL/min/1.73 meters squared eGFR is derived from the reexpressed MDRD Study equation using the following parameters: serum creatinine, age, gender and race. The creatinine assay has been calibrated to be traceable to IDMS. An eGFR <60 mL/min/1.73m2 for >3 months is consistent with chronic kidney disease. Refer to KDOQI guidelines for clinical interpretation. In patients with unstable renal function, e.g. those with acute kidney injury, the eGFR may not accurately reflect actual GFR. eGFR- Date Value Ref Range Status 07/02/2017 53 Final P.O.C.T. RESULTS: POC done: Yes, See Lab Tab July 28, 2017 RADIOLOGIST NOTIFIED?: No ALLERGIES: Reviewed and unchanged CONTRAST ALLERGY: NO. PERIPHERAL IV ACCESS: Ambulatory: IV type: A peripheral IV was started in the Right antecubital site with a Angio cath: 20 gauge., Site assessment: Clean,Dry and Intact, Site disposition Left in for next appointment RADIOLOGY DEPARTMENT: MR; Exam(s) Completed: Body: Female Pelvis SIGNED BY: RT Anel July 28, 2017 10:19 AM MRI PELVIS WO/W Observed: 07/28/2017 Status: F Source: [place] IVCON 10:17 AM [facility] REPOSITORY * * *Final Report* * * DATE OF EXAM: Jul 28 2017 10:17AM [facility] 0742 - MRI PELVIS WO/W IVCON / PROCEDURE REASON: multiple diagnoses * * * * Physician Interpretation * * * * MRI OF THE PELVIS WITHOUT AND WITH CONTRAST CLINICAL HISTORY: Malignant neoplasm of the vagina. COMPARISON: 04/07/2017. TECHNIQUE: Using the torso phased array, axial T1 weighted, axial, sagittal and coronal T2 weighted and coronal HASTE images were obtained through the pelvis. Then, an axial T1 weighted 3-D GRE sequence was performed before and after the administration of intravenous Gadolinium chelate (20 cc Dotarem). RESULT: Uterus: Absent. Cervix: Absent. Ovaries: Absent. Vagina/rectum: Decrease in size of the infiltrative vaginal mass with concurrent decrease in hypervascularity. Residual component along the right vaginal cuff measures 3.5 x 4.0 cm (4:18, previously 5.5 x 5.0 cm at a comparable level). Inferior infiltrative component extending into the right rectovaginal space spanning 3.2 x 3.0 cm (4:12, previously 8.1 x 4.4 cm) and invading the anterior/right distal rectum measuring up to 1.8 cm in thickness (4:14, previously 2 cm) and with 5.9 cm maximum length along the rectum (3:14, previously 7 cm). Lymph nodes: 1.8 x 1.7 cm right pelvic sidewall node (4:27) previously measured 3.4 x 3.2 cm. Right anterior perirectal node currently measuring 4 mm (4:19) previously measured 1 cm. Additional right posterior perirectal nodes measuring up to 6 mm (4:24) and right external iliac chain nodes with fatty demetrius measuring up to 1.7 cm (4:33) are stable. Adnexa/other: No free fluid. Bilateral ischial bursitis and left hip effusion with advanced osteoarthrosis. Right hip arthroplasty. Parapelvic and cortical based bilateral renal cysts. No bowel obstruction. IMPRESSION: Favorable treatment response. Decreased size and enhancement of the infiltrative vaginal mass and invasive components involving the anterior/right distal rectum. Stable to decreased size of the mesorectal and right pelvic sidewall lymph nodes. Medical Front Desk Coordinator: PSCB Transcribe Date/Time: Jul 30 2017 1:39P Dictated by : NIKI COFFMAN MD This examination was interpreted and the report reviewed and electronically signed by: NIKI COFFMAN MD on Jul 30 2017 1:57PM EST [id number] PROGRESS Observed: 07/02/2017 Status: COMPLETED Source: [place] 9:45 AM [facility] REPOSITORY HNO ID: [id number] Author: Isidro Estevez Service: (none) Author Type: Physician Type: Progress Notes Filed: 07/02/2017 10:14 AM Note Text: Diagnoses: 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 HPI: The patient is a 71 yo female with a PMH significant for DM2, asthma, VTE, and possible mild CKD as well has hysterectomy ~31 yrs ago who presented to [facility] ED 07/2013 with c/o dyspnea. CT chest significant for large b/l PE. One was a saddle embolus draped across the bifurcation of the main pulmonary artery and extending into both the right and left pulmonary artery segments per the CT report. Patient was transferred to [facility]. Not clear if she underwent thrombolysis. She recalls being discharged on Xarelto and was maintained on that drug until changed to Eliquis per her PCP. She was on that drug when she underwent work up for abdominal pain 03/2015. Underwent CT A/P 04/16/2015 that showed a large complex mass in the pelvis interpreted as arising from the uterus or an ovary and measuring 14.3 x 13.3 x 12.7 cm. It appeared to be well circumscribed not invading other structures. No evidence metastases elsewhere in abdomen. Patient was admitted to [facility] 04/19/2015 for acute left LE small DVT and possible cellulitis of the same leg. She was treated with vancomycin and anticoagulated with Lovenox and transferred to [facility] ([facility] under the care of a gynecologic oncology surgeon, Dr. Sony Monteiro. Underwent surgery 05/03/2015. The final pathology demonstrated that within the RIGHT ovary there was a granulosa cell tumor. The greatest dimension of the ovary was 18 cm. The left fallopian tube was not involved. The omentum was not involved. left ovary and right fallopian tubes were not involved. Tumor was adherent to the left pelvic sidewall. No regional lymph node metastasis was observed. Lymph nodes were removed from the left pelvic, left periaortic areas. Focal angiolymphatic invasion was identified. 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 She was discharged to [facility]. Since the time of surgery, she had been having abdominal pain that is sharp and low in abdomen. It crescendos and is partially relieved with a BM. Returns shortly thereafter. Stools were loose and she had been having intermittent nausea with poor appetite. Was transferred to [facility] 05/09/2015 however for low Hgb of 6.1 g/dL. Received transfusion and admitted to [facility]. She received a blood transfusion. She was discharged back to the nursing facility and subsequent discharge home. She had been doing home physical therapy. She was making improvements. Initially seen here in plan was for adjuvant chemotherapy once the acute issues were resolved. She was admitted to [facility] with hypotension and acute kidney injury on June 17. Serum creatinine was 2.75 mg/dL. She was started on hydration and admitted to the intensive care unit after initiating broad-spectrum antibiotics. Blood cultures remained negative. Urine culture showed 10-50,000 colony-forming units of gram-positive cocci. Patient was transitioned to Levaquin and metronidazole. Creatinine normalized. She was discharged and is now being followed at the wound clinic. She underwent excisional debridement of the nonhealing ulcer in the anterior abdominal wall with complex secondary wound closure on 07/18/2015. It was explained to her that 3 layers of sutures are in place. The superficial layer is non-dissolvable whereas the underlying 2 layers are dissolvable. There is a plan for the non-dissolvable sutures to be removed on the through . Previous therapy: 1) Adjuvant carbo/paclitaxel x6 cycles completed 12/2015. She underwent pelvic exam under anesthesia on 12/04/2016. During the procedure she was observed to have a large approximately 7- 8 cm mass in the rectovaginal septum that infiltrated fairly downloaded to the hymenal ring. There was also infiltration along the right vaginal sidewall. Several core biopsies were obtained of the rectovaginal mass in the right vaginal sidewall. Areas revealed a poorly differentiated high-grade malignancy suggestive of malignant melanoma. Immunostains were positive for HMB-45, SOX-10 and [place]-1. CD3, CD20, CD45, CD138, inhibin, [place] 8 and S100 were negative. No BRAF mutation. Patient was admitted to [facility] for fever and malaise. She was found to have Escherichia coli sepsis. She was treated with broad-spectrum antibiotics. Urine appeared to be the source. She also received a 2 unit red blood cell transfusion. She underwent colonoscopy where in she was found to have extensive involvement of the rectum and was thereafter transferred to [facility]. On initial exam was determined that the tumor was significantly larger than it was on initial exam/biopsy. Therefore she underwent a palliative loop colostomy on 01/05. The patient had an unremarkable postoperative course and was discharged on Eliquis 5 mg twice a day and completed ciprofloxacin 14 days from her negative culture. 2) Palliative radiation on 01/26/2017. Current therapy: 1) Nivolumab. Presents for ongoing oncologic management. Interim history: She is tolerating treatment well without any symptomatic side effect. She's having more right-sided knee pain. She is using a cane still to ambulate. This is chronic but getting worse. She occasionally has some rectal discharge that looks sometimes like dried blood. No vaginal bleeding. Pain from the stomal hernia fluctuates. Pelvic pain is under great control with current pain medication regimen. No episodes of jaundice. Her appetite fluctuates. She occasionally has nausea with dry heaves. Anti-emetic medication works well for it. No other unusual bleeding or unexplained bruising. PMH, medications and allergies as below personally reviewed by me today. Any changes documented in appropriate section. ROS: Constitutional: Denies episodes of fever and night sweats. Neuro: Denies TANNER, vertigo, dizziness. HEENT: No recent change in voice, vision or hearing. Resp: Denies cough, wheeze and hemoptysis. Denies shortness of breath at rest. CVS: Denies exertional chest pain, PND, orthopnea. Chronic lower extremity edema stable. GI: Denies symptoms of stomatitis. Denies dysphagia and odynophagia. Denies reflux and nausea. : See above. Endo: Denies hot flashes. Denies polyuria and polydipsia. Denies heat and cold intolerance. Musculoskeletal: Denies bone, back, joint and muscular pain. Derm: Denies rash. Denies diffuse pruritis. Heme: See above. Psych: Normal mood. PHYSICAL EXAM: Vitals: Blood pressure 137/65, pulse 78, temperature 36.6 ?C (97.9 ?F), temperature source Temporal Artery, weight 96.8 kg (213 lb 8 oz). Well-appearing and in no acute distress. EYES: Sclerae are anicteric bilaterally. NECK: Supple. LYMPHATIC: There is no palpable cervical, supraclavicular adenopathy. RESPIRATORY: Inspiratory breath sounds are of normal intensity in all muir. No rales, wheezes or rhonchi. CARDIOVASCULAR: Rhythm is regular. Normal intensity S1/S2. There is no gallop or murmur. ABDOMEN: The abdomen is nondistended. Ostomy appears healthy. There is more stable surrounding herniation. Extremities: Increased lower extremity swelling particularly on the left. SKIN: Less swelling and edema bilaterally. No sign of cellulitis. 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 -She is tolerating nivolumab well with no symptomatic side effects. -Again reviewed plan that since the last CT scan showed some improvement in the tumor and on bimanual exam was thought to clearly be smaller, we will continue therapy for now and reassess radiographically in several weeks. Follow-up MRI pelvis in June as well as CTs. If negative, then PET and potential surgery. She understands however that these efforts are palliative and may not prove to be curative. Plan: -Okay for continued therapy. 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 -Presently no vaginal bleeding. Plan: -Continue Eliquis 5 mg twice a day. 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 (R10.2) Pelvic pain Assessment/Plan: -Under good control. Plan: -Continue current regimen. Isidro Estevez, GIL[place] ABS GR + CBC Collected: 07/02/2017 Status: F Source: [place] 9:41 AM [facility] REPOSITORY TYPE CODE TESTS RESULT OUT OF REFERENCE UNITS RANGE LAB WWBC 3.70-11.00 k/uL [place] WBC 4.96 LAB WRBC 3.90-5.20 m/uL [place] RBC 4.04 LAB WHGB 11.5-15.5 g/dL [place] Hemoglobin 12.4 LAB WHCT 36.0-46.0 % [place] Hematocrit 39.0 LAB WMCV 80.0-100.0 fL [place] MCV 96.5 LAB WMCH 26.0-34.0 pg [place] MCH 30.7 LAB WMCHC 30.5-36.0 g/dL [place] MCHC 31.8 LAB WRDW 11.5-15.0 % [place] RDW 14.1 LAB WPLT 150-400 k/uL [place] Platelet Cnt 158 LAB WMPV 9.0-12.7 fL [place] MPV 9.8 Result Comment: Test performed at: [facility], [address] [place] [address] Rd., [place] [address]. LAB ABGRAN 1.45-7.50 k/uL Absol Gran 3.47 Count COMP METABOLIC PANEL Collected: 07/02/2017 Status: F Source: [place] 9:41 AM [facility] REPOSITORY TYPE CODE TESTS RESULT OUT OF REFERENCE UNITS RANGE LAB TP 6.3-8.0 g/dL Protein, Total 7.1 LAB ALB 3.9-4.9 g/dL Albumin 4.0 LAB CA 8.5-10.2 mg/dL Calcium, Total 9.6 LAB TBIL 0.2-1.3 mg/dL Bilirubin, Total 0.8 LAB ALKP 32-117 U/L Alkaline Phosphatase 101 LAB AST 13-35 U/L AST 15 LAB GLU 74-99 mg/dL Glucose High 149 Result Comment: The [place] [employer] (ADA) provides guidance for cutoff values for fasting glucose and random glucose. The ADA defines fasting as no caloric intake for at least 8 hours. Fas ting plasma glucose results between 100 to 125 mg/dL indicate increased risk for diabetes (prediabetes). Fasting plasma glucose results greater than or equal to 126 mg/dL meet the criteria for diagnosis of diabetes. In the absence of unequivocal hyperglycemia, results should be confirmed by repeat testing. In a patient with classic symptoms of hyperglycemia or hyperglycemic crisis, random plasma glucose results greater than or equal to 200 mg/dL meet the criteria for diagnosis of diabetes. Reference: Standards of Medical Care in Diabetes 2016, [place] [employer]. Diabetes Care. 2016.39(Suppl 1). LAB BUN 7-21 mg/dL BUN High 25 LAB CRET 0.58-0.96 mg/dL Creatinine High 1.21 LAB NA 136-144 mmol/L Sodium 141 LAB K 3.7-5.1 mmol/L Potassium 3.9 LAB CL 97-105 mmol/L Chloride 101 LAB CO2 22-30 mmol/L CO2 28 LAB AGAP 9-18 mmol/L Anion Gap 12 LAB ALT 7-38 U/L ALT 13 LAB GFRAA eGFR- Amer. 53 LAB GFRNAA . eGFR-All Other Races 44 Result Comment: eGFR (Estimated GFR) Units of measure: mL/min/1.73 meters squared eGFR is derived from the reexpressed MDRD Study equation using the following parameters: serum creatinine, age, gender and race. The creatinine assay has been calibrated to be traceable to IDMS. An eGFR <60 mL/min/1.73m2 for >3 months is consistent with chronic kidney disease. Refer to KDOQI guidelines for clinical interpretation. In patients with unstable renal function, e.g. those with acute kidney injury, the eGFR may not accurately reflect actual GFR. 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 HPI: The patient is a 71 yo female with a PMH significant for DM2, asthma, VTE, and possible mild CKD as well has hysterectomy ~31 yrs ago who presented to [facility] ED 07/2013 with c/o dyspnea. CT chest significant for large b/l PE. One was a saddle embolus draped across the bifurcation of the main pulmonary artery and extending into both the right and left pulmonary artery segments per the CT report. Patient was transferred to [facility]. Not clear if she underwent thrombolysis. She recalls being discharged on Xarelto and was maintained on that drug until changed to Eliquis per her PCP. She was on that drug when she underwent work up for abdominal pain 03/2015. Underwent CT A/P 04/16/2015 that showed a large complex mass in the pelvis interpreted as arising from the uterus or an ovary and measuring 14.3 x 13.3 x 12.7 cm. It appeared to be well circumscribed not invading other structures. No evidence metastases elsewhere in abdomen. Patient was admitted to [facility] 04/19/2015 for acute left LE small DVT and possible cellulitis of the same leg. She was treated with vancomycin and anticoagulated with Lovenox and transferred to [facility] ([facility]) under the care of a gynecologic oncology surgeon, Dr. Sony Monteiro. Underwent surgery 05/03/2015. The final pathology demonstrated that within the RIGHT ovary there was a granulosa cell tumor. The greatest dimension of the ovary was 18 cm. The left fallopian tube was not involved. The omentum was not involved. left ovary and right fallopian tubes were not involved. Tumor was adherent to the left pelvic sidewall. No regional lymph node metastasis was observed. Lymph nodes were removed from the left pelvic, left periaortic areas. Focal angiolymphatic invasion was identified. 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 She was discharged to [facility]. Since the time of surgery, she had been having abdominal pain that is sharp and low in abdomen. It crescendos and is partially relieved with a BM. Returns shortly thereafter. Stools were loose and she had been having intermittent nausea with poor appetite. Was transferred to [facility] 05/09/2015 however for low Hgb of 6.1 g/dL. Received transfusion and admitted to [facility]. She received a blood transfusion. She was discharged back to the nursing facility and subsequent discharge home. She had been doing home physical therapy. She was making improvements. Initially seen here in plan was for adjuvant chemotherapy once the acute issues were resolved. She was admitted to [facility] with hypotension and acute kidney injury on June 17. Serum creatinine was 2.75 mg/dL. She was started on hydration and admitted to the intensive care unit after initiating broad-spectrum antibiotics. Blood cultures remained negative. Urine culture showed 10-50,000 colony-forming units of gram-positive cocci. Patient was transitioned to Levaquin and metronidazole. Creatinine normalized. She was discharged and is now being followed at the wound clinic. She underwent excisional debridement of the nonhealing ulcer in the anterior abdominal wall with complex secondary wound closure on 07/18/2015. It was explained to her that 3 layers of sutures are in place. The superficial layer is non-dissolvable whereas the underlying 2 layers are dissolvable. There is a plan for the non-dissolvable sutures to be removed on the through . Previous therapy: 1) Adjuvant carbo/paclitaxel x6 cycles completed 12/2015. She underwent pelvic exam under anesthesia on 12/04/2016. During the procedure she was observed to have a large approximately 7-8 cm mass in the rectovaginal septum that infiltrated fairly downloaded to the hymenal ring. There was also infiltration along the right vaginal sidewall. Several core biopsies were obtained of the rectovaginal mass in the right vaginal sidewall. Areas revealed a poorly differentiated high-grade malignancy suggestive of malignant melanoma. Immunostains were positive for HMB-45, SOX-10 and [place]-1. CD3, CD20, CD45, CD138, inhibin, [place] 8 and S100 were negative. No BRAF mutation. Patient was admitted to [facility] for fever and malaise. She was found to have Escherichia coli sepsis. She was treated with broad-spectrum antibiotics. Urine appeared to be the source. She also received a 2 unit red blood cell transfusion. She underwent colonoscopy where in she was found to have extensive involvement of the rectum and was thereafter transferred to [facility]. On initial exam was determined that the tumor was significantly larger than it was on initial exam/biopsy. Therefore she underwent a palliative loop colostomy on 01/05. The patient had an unremarkable postoperative course and was discharged on Eliquis 5 mg twice a day and completed ciprofloxacin 14 days from her negative culture. 2) Palliative radiation on 01/26/2017. Current therapy: 1) Nivolumab. Presents for ongoing oncologic management. Interim history: She is tolerating treatment well without any symptomatic side effect. She's having more right-sided knee pain. She is using a cane still to ambulate. This is chronic but getting worse. She occasionally has some rectal discharge that looks sometimes like dried blood. No vaginal bleeding. Pain from the stomal hernia fluctuates. Pelvic pain is under great control with current pain medication regimen. No episodes of jaundice. Her appetite fluctuates. She occasionally has nausea with dry heaves. Anti-emetic medication works well for it. No other unusual bleeding or unexplained bruising. PMH, medications and allergies as below personally reviewed by me today. Any changes documented in appropriate section. ROS: Constitutional: Denies episodes of fever and night sweats. Neuro: Denies TANNER, vertigo, dizziness. HEENT: No recent change in voice, vision or hearing. Resp: Denies cough, wheeze and hemoptysis. Denies shortness of breath at rest. CVS: Denies exertional chest pain, PND, orthopnea. Chronic lower extremity edema stable. GI: Denies symptoms of stomatitis. Denies dysphagia and odynophagia. Denies reflux and nausea. : See above. Endo: Denies hot flashes. Denies polyuria and polydipsia. Denies heat and cold intolerance. Musculoskeletal: Denies bone, back, joint and muscular pain. Derm: Denies rash. Denies diffuse pruritis. Heme: See above. Psych: Normal mood. PHYSICAL EXAM: Vitals: Blood pressure 137/65, pulse 78, temperature 36.6 ?C (97.9 ?F), temperature source Temporal Artery, weight 96.8 kg (213 lb 8 oz). Well-appearing and in no acute distress. EYES: Sclerae are anicteric bilaterally. NECK: Supple. LYMPHATIC: There is no palpable cervical, supraclavicular adenopathy. RESPIRATORY: Inspiratory breath sounds are of normal intensity in all muir. No rales, wheezes or rhonchi. CARDIOVASCULAR: Rhythm is regular. Normal intensity S1/S2. There is no gallop or murmur. ABDOMEN: The abdomen is nondistended. Ostomy appears healthy. There is more stable surrounding herniation. Extremities: Increased lower extremity swelling particularly on the left. SKIN: Less swelling and edema bilaterally. No sign of cellulitis. 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 -She is tolerating nivolumab well with no symptomatic side effects. -Again reviewed plan that since the last CT scan showed some improvement in the tumor and on bimanual exam was thought to clearly be smaller, we will continue therapy for now and reassess radiographically in several weeks. Follow-up MRI pelvis in June as well as CTs. If negative, then PET and potential surgery. She understands however that these efforts are palliative and may not prove to be curative. Plan: -Okay for continued therapy. 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 -Presently no vaginal bleeding. Plan: -Continue Eliquis 5 mg twice a day. 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 (R10.2) Pelvic pain Assessment/Plan: -Under good control. Plan: -Continue current regimen. 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 Earliest Fill Date: 07/02/17Disp: 180 tabletRfl: 0 CT ABD/PEL W IVCON [[id number]] Order #: [id number] FUTURE CT CHEST W IVCON [[id number]] Order #: [id number] FUTURE iv contrast (radiology procedure)CT Chest ABD/PEL-Inject, intravenously, once for 1 dose.No IV access, insert saline lock prior to the beginning of sedation, infusion, injection of imaging exam. Discontinue saline lock post exam. If Pt. has a central line or IVAD, may access for administration according to line specific nursing protocol. Once exam is complete flush line and de- access according to line specific nursing protocol in the CT contrast administration guidelines link.Disp: 1 EachRfl: 0 enteric contrast (radiology procedure)For CT CHESTABD/PEL W IVCON Routine order Administer, As Directed One Time Only, via Oral, Rectal, both Oral and Rectal, Enteric Tube, Stoma or Indwelling Catheter, Enteric Contrast as designated per enteric contrast guidelinesDisp: 1 EachRfl: 0 MRI PELVIS WO/W IVCON [[id number]] Order #: [id number] FUTURE iv contrast (radiology procedure)MRI Pelvis Inject, intravenously, once for 1 dose. No IV access, insert saline lock prior to the beginning of sedation, infusion, injection of imaging exam. Discontinue saline lock post exam. If Pt has a central line or IVAD, may access for administration according to line specific nursing protocol. Once exam is complete flush line and de- access according to line specific nursing protocol in the MR contrast administration guidelines link.Disp: 1 EachRfl: 0 predniSONE (DELTASONE) 50 mg tabTake 1 tablet 13, 7 and [address] scan[address]Disp: 3 tabletRfl: 0 Follow-up and Disposition History Recorded Prescriptions as of 07/02/2017 Sig: OXYCODONE 5 MG TABLET Take 1-2 tablets by mouth morena* OXYCODONE 15 MG TABLET Take 15 mg by mouth every 12 * GABAPENTIN 300 MG CAPSULE Take 1 capsule by mouth three* APIXABAN 5 MG TABLET 1 tablet twice daily. Take 1/* Patient taking differently: 5 mg twice daily. ONDANSETRON HCL 8 MG TABLET Take 1 tablet by mouth every * PHENERGAN ORAL Take by mouth as needed. FUROSEMIDE 40 MG TABLET Take 40 mg by mouth twice jessica* ASCORBIC ACID (VITAMIN C) 1,0* Take 1,000 mg by mouth once d* METFORMIN 500 MG TABLET Take 1/2 tablet by mouth twic* CYANOCOBALAMIN (VIT B-12) 250* Take 1 tablet by mouth once d* CYCLOBENZAPRINE 10 MG TABLET Take 10 mg by mouth daily at * MULTIVITAMIN-IRON 9 MG-FOLIC * Take 1 tablet by mouth once d* CETIRIZINE 10 MG TABLET Take 10 mg by mouth once kaz* ACETAMINOPHEN 325 MG TABLET Take 325 mg by mouth every 6 * ALBUTEROL SULFATE HFA 90 MCG/* Inhale 2 Puffs as instructed * IV CONTRAST (RADIOLOGY PROCED* CT Chest ABD/PEL-Inject, intr* ENTERIC CONTRAST (RADIOLOGY P* For CT CHESTABD/PEL W IVCON R* IV CONTRAST (RADIOLOGY PROCED* MRI Pelvis Inject, intravenou* PREDNISONE 50 MG TABLET Take 1 tablet 13, 7 and 1 valerie* POTASSIUM CHLORIDE ER 10 MEQ * Take 1 tablet by mouth once d* METHYLPREDNISOLONE 4 MG TABLE* As Instructed per package FLUTICASONE-SALMETEROL 230 MC* Inhale 1 Puff as instructed t* Problem List As Of Date 07/02/2017 Noted Resolved 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 Encounter Status:Closed by ISIDRO ESTEVEZ DO on 07/02/17 PROGRESS Observed: 06/07/2017 Status: COMPLETED Source: [place] 3:45 PM [facility] [place] REPOSITORY O ID: [id number] Author: Isidro Estevez Service: (none) Author Type: Physician Type: Progress Notes Filed: 06/07/2017 4:56 PM Note Text: Diagnoses: 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 HPI: The patient is a 71 yo female with a PMH significant for DM2, asthma, VTE, and possible mild CKD as well has hysterectomy ~31 yrs ago who presented to [facility] ED 07/2013 with c/o dyspnea. CT chest significant for large b/l PE. One was a saddle embolus draped across the bifurcation of the main pulmonary artery and extending into both the right and left pulmonary artery segments per the CT report. Patient was transferred to [facility]. Not clear if she underwent thrombolysis. She recalls being discharged on Xarelto and was maintained on that drug until changed to Eliquis per her PCP. She was on that drug when she underwent work up for abdominal pain 03/2015. Underwent CT A/P 04/16/2015 that showed a large complex mass in the pelvis interpreted as arising from the uterus or an ovary and measuring 14.3 x 13.3 x 12.7 cm. It appeared to be well circumscribed not invading other structures. No evidence metastases elsewhere in abdomen. Patient was admitted to [facility] 04/19/2015 for acute left LE small DVT and possible cellulitis of the same leg. She was treated with vancomycin and anticoagulated with Lovenox and transferred to [facility]) under the care of a gynecologic oncology surgeon, Dr. Sony Monteiro. Underwent surgery 05/03/2015. The final pathology demonstrated that within the RIGHT ovary there was a granulosa cell tumor. The greatest dimension of the ovary was 18 cm. The left fallopian tube was not involved. The omentum was not involved. left ovary and right fallopian tubes were not involved. Tumor was adherent to the left pelvic sidewall. No regional lymph node metastasis was observed. Lymph nodes were removed from the left pelvic, left periaortic areas. Focal angiolymphatic invasion was identified. 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 She was discharged to [facility]. Since the time of surgery, she had been having abdominal pain that is sharp and low in abdomen. It crescendos and is partially relieved with a BM. Returns shortly thereafter. Stools were loose and she had been having intermittent nausea with poor appetite. Was transferred to [facility] 05/09/2015 however for low Hgb of 6.1 g/dL. Received transfusion and admitted to [facility]. She received a blood transfusion. She was discharged back to the nursing facility and subsequent discharge home. She had been doing home physical therapy. She was making improvements. Initially seen here in plan was for adjuvant chemotherapy once the acute issues were resolved. She was admitted to [facility] with hypotension and acute kidney injury on June 17. Serum creatinine was 2.75 mg/dL. She was started on hydration and admitted to the intensive care unit after initiating broad-spectrum antibiotics. Blood cultures remained negative. Urine culture showed 10-50,000 colony-forming units of gram-positive cocci. Patient was transitioned to Levaquin and metronidazole. Creatinine normalized. She was discharged and is now being followed at the wound clinic. She underwent excisional debridement of the nonhealing ulcer in the anterior abdominal wall with complex secondary wound closure on 07/18/2015. It was explained to her that 3 layers of sutures are in place. The superficial layer is non-dissolvable whereas the underlying 2 layers are dissolvable. There is a plan for the non-dissolvable sutures to be removed on the through . Previous therapy: 1) Adjuvant carbo/paclitaxel x6 cycles completed 12/2015. She underwent pelvic exam under anesthesia on 12/04/2016. During the procedure she was observed to have a large approximately 7- 8 cm mass in the rectovaginal septum that infiltrated fairly downloaded to the hymenal ring. There was also infiltration along the right vaginal sidewall. Several core biopsies were obtained of the rectovaginal mass in the right vaginal sidewall. Areas revealed a poorly differentiated high-grade malignancy suggestive of malignant melanoma. Immunostains were positive for HMB-45, SOX-10 and [place]-1. CD3, CD20, CD45, CD138, inhibin, [place] 8 and S100 were negative. No BRAF mutation. Patient was admitted to [facility] for fever and malaise. She was found to have Escherichia coli sepsis. She was treated with broad-spectrum antibiotics. Urine appeared to be the source. She also received a 2 unit red blood cell transfusion. She underwent colonoscopy where in she was found to have extensive involvement of the rectum and was thereafter transferred to [facility]. On initial exam was determined that the tumor was significantly larger than it was on initial exam/biopsy. Therefore she underwent a palliative loop colostomy on 01/05. The patient had an unremarkable postoperative course and was discharged on Eliquis 5 mg twice a day and completed ciprofloxacin 14 days from her negative culture. 2) Palliative radiation on 01/26/2017. Current therapy: 1) Nivolumab. Presents for ongoing oncologic management. Interim history: She wasn't able to undergo ostomy hernia repair. However on today's exam she was noted to have a much smaller pelvic mass bimanual exam. She's not had any further vaginal bleeding in several months. Occasionally she'll have some rectal discharge but no bleeding. Ostomy itself has been working well although she is having irritation of the skin. Lower extremity swelling overall is less. She still has one spot where there is some serous drainage. No symptoms of cellulitis recently. She's not having any specific side effects from immunotherapy. Pelvic pain is under good control with the current analgesic regimen. She has no urinary symptoms including urgency dysuria or slowing of her urinary stream. PMH, medications and allergies as below personally reviewed by me today. Any changes documented in appropriate section. ROS: Constitutional: Denies episodes of fever and night sweats. Neuro: Denies TANNER, vertigo, dizziness. HEENT: No recent change in voice, vision or hearing. Resp: Denies cough, wheeze and hemoptysis. Denies shortness of breath at rest. CVS: Denies exertional chest pain, PND, orthopnea. Chronic lower extremity edema stable. GI: Denies symptoms of stomatitis. Denies dysphagia and odynophagia. Denies reflux and nausea. : See above. Endo: Denies hot flashes. Denies polyuria and polydipsia. Denies heat and cold intolerance. Musculoskeletal: Denies bone, back, joint and muscular pain. Derm: Denies rash. Denies diffuse pruritis. Heme: See above. Psych: Normal mood. PHYSICAL EXAM: Vitals: Blood pressure 150/68, pulse 96, temperature 36.9 ?C (98.5 ?F), weight 95.3 kg (210 lb). Well-appearing and in no acute distress. EYES: Sclerae are anicteric bilaterally. NECK: Supple. LYMPHATIC: There is no palpable cervical, supraclavicular adenopathy. RESPIRATORY: Inspiratory breath sounds are of normal intensity in all muir. No rales, wheezes or rhonchi. CARDIOVASCULAR: Rhythm is regular. Normal intensity S1/S2. There is no gallop or murmur. ABDOMEN: The abdomen is nondistended. Ostomy appears healthy. There is more stable surrounding herniation. Extremities: Increased lower extremity swelling particularly on the left. SKIN: Less swelling and edema bilaterally. No sign of cellulitis currently. 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 -She is tolerating nivolumab well with fatigue as her only side effect. -I was able to access the CT scan images but at least by report it is encouraging that no gross disease was observed in the pelvis. -We will plan to continue pembrolizumab with follow-up MRI pelvis in June as well as CTs. If negative, then PET and potential surgery. Plan: -Okay for continued therapy. 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 -Presently no vaginal bleeding. Plan: -Continue Eliquis 5 mg twice a day. 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 (R10.2) Pelvic pain Assessment/Plan: -Under good control. Plan: -Continue current regimen. Isidro Estevez DO [place] ABS GR + CBC Collected: 06/07/2017 Status: F Source: [place] 3:01 PM [facility] REPOSITORY TYPE CODE TESTS RESULT OUT OF REFERENCE UNITS RANGE LAB WWBC 3.70-11.00 k/uL [place] WBC 6.26 LAB WRBC 3.90-5.20 m/uL [place] RBC 4.01 LAB WHGB 11.5-15.5 g/dL [place] Hemoglobin 12.4 LAB WHCT 36.0-46.0 % [place] Hematocrit 39.1 LAB WMCV 80.0-100.0 fL [place] MCV 97.5 LAB WMCH 26.0-34.0 pg [place] MCH 30.9 LAB WMCHC 30.5-36.0 g/dL [place] MCHC 31.7 LAB WRDW 11.5-15.0 % [place] RDW 14.7 LAB WPLT 150-400 k/uL Low [place] Platelet Cnt 137 LAB WMPV 9.0-12.7 fL [place] MPV 9.8 Result Comment: Test performed at: [facility], [address] [place] [address] Rd., [place] [address]. LAB ABGRAN 1.45-7.50 k/uL Absol Gran 4.82 Count COMP METABOLIC PANEL Collected: 06/07/2017 Status: F Source: [place] 3:01 PM [facility] REPOSITORY TYPE CODE TESTS RESULT OUT OF REFERENCE UNITS RANGE LAB TP 6.3-8.0 g/dL Protein, Total 7.1 LAB ALB 3.9-4.9 g/dL Low Albumin 3.8 LAB CA 8.5-10.2 mg/dL Calcium, Total 9.7 LAB TBIL 0.2-1.3 mg/dL Bilirubin, Total 0.8 LAB ALKP 32-117 U/L Alkaline Phosphatase 112 LAB AST 13-35 U/L AST 16 LAB GLU 74-99 mg/dL Glucose High 219 Result Comment: The [place] [employer] (ADA) provides guidance for cutoff values for fasting glucose and random glucose. The ADA defines fasting as no caloric intake for at least 8 hours. Fas ting plasma glucose results between 100 to 125 mg/dL indicate increased risk for diabetes (prediabetes). Fasting plasma glucose results greater than or equal to 126 mg/dL meet the criteria for diagnosis of diabetes. In the absence of unequivocal hyperglycemia, results should be confirmed by repeat testing. In a patient with classic symptoms of hyperglycemia or hyperglycemic crisis, random plasma glucose results greater than or equal to 200 mg/dL meet the criteria for diagnosis of diabetes. Reference: Standards of Medical Care in Diabetes 2016, [place] [employer]. Diabetes Care. 2016.39(Suppl 1). LAB BUN 7-21 mg/dL BUN High 29 LAB CRET 0.58-0.96 mg/dL Creatinine High 1.34 LAB NA 136-144 mmol/L Sodium 142 LAB K 3.7-5.1 mmol/L Potassium 4.1 LAB CL 97-105 mmol/L Chloride 101 LAB CO2 22-30 mmol/L CO2 25 LAB AGAP 9-18 mmol/L Anion Gap 16 LAB ALT 7-38 U/L ALT 16 LAB GFRAA eGFR- Amer. 47 LAB GFRNAA . eGFR-All Other Races 39 Result Comment: eGFR (Estimated GFR) Units of measure: mL/min/1.73 meters squared eGFR is derived from the reexpressed MDRD Study equation using the following parameters: serum creatinine, age, gender and race. The creatinine assay has been calibrated to be traceable to IDMS. An eGFR <60 mL/min/1.73m2 for >3 months is consistent with chronic kidney disease. Refer to KDOQI guidelines for clinical interpretation. In patients with unstable renal function, e.g. those with acute kidney injury, the eGFR may not accurately reflect actual GFR. Performed By: #### CMP #### [facility] [address] [place], [place] [address] CNOVSP Observed: 06/07/2017 Status: COMPLETED Source: [place] 2:30 PM [facility] REPOSITORY Visit (SP) Office (CRUZ) KANU AJ ([id number]) 1945 F Date Time Provider Department 06/07/17 2:30 PM ISIDRO ESTEVEZ During your visit today, we recorded the following information about you: Temperature Pulse Blood pressure Weight 98.5 degrees 96/minute 150/68 95.3 kg Kylah MoncadaSHARIF beltran, INTERNET SYSTEMS ADMINISTRATOR 06/07/2017 3:50 PM Signed Est pt, discuss recent lab results, tx tomorrow Kylah ParkerSHARIF, 06/07/2017 4:56 PM Signed Diagnoses: 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 HPI: The patient is a 71 yo female with a PMH significant for DM2, asthma, VTE, and possible mild CKD as well has hysterectomy ~31 yrs ago who presented to [facility] ED 07/2013 with c/o dyspnea. CT chest significant for large b/l PE. One was a saddle embolus draped across the bifurcation of the main pulmonary artery and extending into both the right and left pulmonary artery segments per the CT report. Patient was transferred to [facility]. Not clear if she underwent thrombolysis. She recalls being discharged on Xarelto and was maintained on that drug until changed to Eliquis per her PCP. She was on that drug when she underwent work up for abdominal pain 03/2015. Underwent CT A/P 04/16/2015 that showed a large complex mass in the pelvis interpreted as arising from the uterus or an ovary and measuring 14.3 x 13.3 x 12.7 cm. It appeared to be well circumscribed not invading other structures. No evidence metastases elsewhere in abdomen. Patient was admitted to [facility] 04/19/2015 for acute left LE small DVT and possible cellulitis of the same leg. She was treated with vancomycin and anticoagulated with Lovenox and transferred to [facility] under the care of a gynecologic oncology surgeon, Dr. Sony Monteiro. Underwent surgery 05/03/2015. The final pathology demonstrated that within the RIGHT ovary there was a granulosa cell tumor. The greatest dimension of the ovary was 18 cm. The left fallopian tube was not involved. The omentum was not involved. left ovary and right fallopian tubes were not involved. Tumor was adherent to the left pelvic sidewall. No regional lymph node metastasis was observed. Lymph nodes were removed from the left pelvic, left periaortic areas. Focal angiolymphatic invasion was identified. 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 She was discharged to [facility]. Since the time of surgery, she had been having abdominal pain that is sharp and low in abdomen. It crescendos and is partially relieved with a BM. Returns shortly thereafter. Stools were loose and she had been having intermittent nausea with poor appetite. Was transferred to [facility] 05/09/2015 however for low Hgb of 6.1 g/dL. Received transfusion and admitted to [facility]. She received a blood transfusion. She was discharged back to the nursing facility and subsequent discharge home. She had been doing home physical therapy. She was making improvements. Initially seen here in plan was for adjuvant chemotherapy once the acute issues were resolved. She was admitted to [facility] with hypotension and acute kidney injury on June 17. Serum creatinine was 2.75 mg/dL. She was started on hydration and admitted to the intensive care unit after initiating broad-spectrum antibiotics. Blood cultures remained negative. Urine culture showed 10-50,000 colony-forming units of gram-positive cocci. Patient was transitioned to Levaquin and metronidazole. Creatinine normalized. She was discharged and is now being followed at the wound clinic. She underwent excisional debridement of the nonhealing ulcer in the anterior abdominal wall with complex secondary wound closure on 07/18/2015. It was explained to her that 3 layers of sutures are in place. The superficial layer is non-dissolvable whereas the underlying 2 layers are dissolvable. There is a plan for the non-dissolvable sutures to be removed on the through . Previous therapy: 1) Adjuvant carbo/paclitaxel x6 cycles completed 12/2015. She underwent pelvic exam under anesthesia on 12/04/2016. During the procedure she was observed to have a large approximately 7-8 cm mass in the rectovaginal septum that infiltrated fairly downloaded to the hymenal ring. There was also infiltration along the right vaginal sidewall. Several core biopsies were obtained of the rectovaginal mass in the right vaginal sidewall. Areas revealed a poorly differentiated high-grade malignancy suggestive of malignant melanoma. Immunostains were positive for HMB-45, SOX-10 and [place]-1. CD3, CD20, CD45, CD138, inhibin, [place] 8 and S100 were negative. No BRAF mutation. Patient was admitted to [facility] for fever and malaise. She was found to have Escherichia coli sepsis. She was treated with broad-spectrum antibiotics. Urine appeared to be the source. She also received a 2 unit red blood cell transfusion. She underwent colonoscopy where in she was found to have extensive involvement of the rectum and was thereafter transferred to [facility]. On initial exam was determined that the tumor was significantly larger than it was on initial exam/biopsy. Therefore she underwent a palliative loop colostomy on 01/05. The patient had an unremarkable postoperative course and was discharged on Eliquis 5 mg twice a day and completed ciprofloxacin 14 days from her negative culture. 2) Palliative radiation on 01/26/2017. Current therapy: 1) Nivolumab. Presents for ongoing oncologic management. Interim history: She wasn't able to undergo ostomy hernia repair. However on today's exam she was noted to have a much smaller pelvic mass bimanual exam. She's not had any further vaginal bleeding in several months. Occasionally she'll have some rectal discharge but no bleeding. Ostomy itself has been working well although she is having irritation of the skin. Lower extremity swelling overall is less. She still has one spot where there is some serous drainage. No symptoms of cellulitis recently. She's not having any specific side effects from immunotherapy. Pelvic pain is under good control with the current analgesic regimen. She has no urinary symptoms including urgency dysuria or slowing of her urinary stream. PMH, medications and allergies as below personally reviewed by me today. Any changes documented in appropriate section. ROS: Constitutional: Denies episodes of fever and night sweats. Neuro: Denies TANNER, vertigo, dizziness. HEENT: No recent change in voice, vision or hearing. Resp: Denies cough, wheeze and hemoptysis. Denies shortness of breath at rest. CVS: Denies exertional chest pain, PND, orthopnea. Chronic lower extremity edema stable. GI: Denies symptoms of stomatitis. Denies dysphagia and odynophagia. Denies reflux and nausea. : See above. Endo: Denies hot flashes. Denies polyuria and polydipsia. Denies heat and cold intolerance. Musculoskeletal: Denies bone, back, joint and muscular pain. Derm: Denies rash. Denies diffuse pruritis. Heme: See above. Psych: Normal mood. PHYSICAL EXAM: Vitals: Blood pressure 150/68, pulse 96, temperature 36.9 ?C (98.5 ?F), weight 95.3 kg (210 lb). Well-appearing and in no acute distress. EYES: Sclerae are anicteric bilaterally. NECK: Supple. LYMPHATIC: There is no palpable cervical, supraclavicular adenopathy. RESPIRATORY: Inspiratory breath sounds are of normal intensity in all muir. No rales, wheezes or rhonchi. CARDIOVASCULAR: Rhythm is regular. Normal intensity S1/S2. There is no gallop or murmur. ABDOMEN: The abdomen is nondistended. Ostomy appears healthy. There is more stable surrounding herniation. Extremities: Increased lower extremity swelling particularly on the left. SKIN: Less swelling and edema bilaterally. No sign of cellulitis currently. 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 -She is tolerating nivolumab well with fatigue as her only side effect. -I was able to access the CT scan images but at least by report it is encouraging that no gross disease was observed in the pelvis. -We will plan to continue pembrolizumab with follow-up MRI pelvis in June as well as CTs. If negative, then PET and potential surgery. Plan: -Okay for continued therapy. 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 -Presently no vaginal bleeding. Plan: -Continue Eliquis 5 mg twice a day. 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 (R10.2) Pelvic pain Assessment/Plan: -Under good control. Plan: -Continue current regimen. Isidro Estevez DO Referring Provider: ISIDRO ESTEVEZ [[id number]] Allergies As of Date: 06/07/2017 Noted Allergy Reaction ASA (ASPIRIN) 05/09/2015 5 - Intolerance Comments: nose bleeds CLINDAMYCIN 05/09/2015 14 - Other: See Comments Comments: jerking, talking funny DEMEROL (MEPERIDINE (PF)) 05/09/2015 8 - GI Upset IODINE 11/23/2016 9 - Itching MORPHINE 05/09/2015 8 - GI Upset VALIUM (DIAZEPAM) 05/09/2015 8 - GI Upset Date Reviewed: 06/07/2017 Reviewed by: Kylah Hernandez (Loan Service Officer) SHARIF Parker - Fully Assessed Reason for Visit: Established Patient [175] Visit Diagnoses:Vaginal melanoma (HCC) [C52] 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 Take 1/* Patient taking differently: 5 mg twice daily. ONDANSETRON HCL 8 MG TABLET Take 1 tablet by mouth every * PHENERGAN ORAL Take by mouth as needed. FUROSEMIDE 40 MG TABLET Take 40 mg by mouth twice jessica* ASCORBIC ACID (VITAMIN C) 1,0* Take 1,000 mg by mouth once d* METFORMIN 500 MG TABLET Take 1/2 tablet by mouth twic* CYANOCOBALAMIN (VIT B-12) 250* Take 1 tablet by mouth once d* CYCLOBENZAPRINE 10 MG TABLET Take 10 mg by mouth daily at * MULTIVITAMIN-IRON 9 MG-FOLIC * Take 1 tablet by mouth once d* CETIRIZINE 10 MG TABLET Take 10 mg by mouth once kaz* ACETAMINOPHEN 325 MG TABLET Take 325 mg by mouth every 6 * ALBUTEROL SULFATE HFA 90 MCG/* Inhale 2 Puffs as instructed * POTASSIUM CHLORIDE ER 10 MEQ * Take 1 tablet by mouth once d* METHYLPREDNISOLONE 4 MG TABLE* As Instructed per package PREDNISONE 50 MG TABLET Take 1 tablet 13, 7 and 1 valerie* FLUTICASONE-SALMETEROL 230 MC* Inhale 1 Puff as instructed t* Medication notes this encounter POTASSIUM CHLORIDE ER 10 MEQ TABLET,EXTENDED RELEASE >> Kylah Mary Parker LPN, SHARIF 06/07/2017 3:16 PM >> KYLAH PARKER WedJun 07, 2017 3:16 PM discontinued Problem List As Of Date 06/07/2017 Noted Resolved 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 Visit Notes: >> Kylah Mary Parker LPN Mon Jun 07, 2017 3:16 PM Status: Signed Est pt, discuss recent lab results, tx tomorrow Kylah Parker LPN Encounter Status:Closed by ISIDRO ESTEVEZ DO on 06/07/17 ALLERGIES ALLERGIES DATE TYPE / NAME / CODE REACTION SEVERITY SOURCE CODE 03/25/2018 DRUG PENICILLIN GI UPSET [facility] INGREDI/41 [place] [id number]( Repository [facility] CT) 10/15/2017 Drug meperidine Other Unknown [place] Allergy/41 HCl/[id number](RX Community [id number]([facility]) [facility]) Repository 10/15/2017 Drug Penicillins/F0010 Itching Unknown [place] Allergy/41 80044(RXNORM) Community [id number]([facility]) Repository 10/15/2017 Drug diazepam/[id number] Nausea/Vom/Diarrh Unknown [place] Allergy/41 61(RXNORM) ea Community [id number]([facility]) Repository 10/15/2017 Drug morphine/[id number] Nausea/Vom/Diarrh Unknown [place] Allergy/41 45(RXNORM) ea [facility] [id number]([facility]) Repository 10/15/2017 Drug aspirin/[id number] Other Unknown [place] Allergy/41 7(RXNORM) [facility] [id number]([facility]) Repository 10/15/2017 Drug clindamycin/F0060 Other Unknown [place] Allergy/41 99546(RXNORM) [facility] [id number]([facility]) Repository 10/15/2017 Drug sulfamethoxazole/ Nausea/Vom/Diarrh Unknown [place] Allergy/41 [id number](RXNORM ea [facility] [id number]([facility]) Repository 10/15/2017 Drug trimethoprim/F006 Nausea/Vom/Diarrh Unknown [place] Allergy/41 566255(RXNORM) ea [facility] [id number]([facility]) Repository 10/15/2017 Drug adhesive Other Unknown [place] Allergy/41 tape/[id number](R Community [id number]( [facility] Rep[facility] 10/15/2017 Drug egg/[id number](RX Diarrhea Unknown [place] Allergy/41 NORM) [facility] [id number]([facility]) Repository 11/23/2016 DRUG IODINE ITCHING [address] [id number]( Repository [facility]) 05/09/2015 DRUG ASPIRIN INTOLERANCE [address] [id number]( Repository [facility]) 05/09/2015 DRUG CLINDAMYCIN OTHER: SEE [place] [address] [place] [id number]( Repository [facility]) 05/09/2015 DRUG/99547 MEPERIDINE (PF) GI UPSET [facility] 1003([place] D [place]) Repository 05/09/2015 DRUG MORPHINE GI UPSET [address] [id number]( Repository [facility] CT) 05/09/2015 DRUG DIAZEPAM GI UPSET [address] [id number]( Repository [facility] CT) ENCOUNTERS ENCOUNTERS ADMIT/DISCHARGE ACCOUNT ADMITTING ENCOUNTER LOCATION SOURCE NUMBER CLASS 05/11/2018 [id number] Ambulatory [place] [facility] ing:WC Repository 05/09/2018/05/10/19 [id number] Ambulatory [facility] [place] Repository 04/25/2018/04/26/19 [id number] Ambulatory [place] [facility] [place] Repository 04/22/2018/04/25/19 [id number] Ambulatory [place] [place] Repository 04/20/2018/04/26/19 [id number] Ambulatory [place] [place] Repository 04/20/2018/04/21/19 [id number] Ambulatory [place] [place] Repository 04/20/2018/04/20/19 [id number] Ambulatory [place] [place] Repository 04/20/2018/04/21/19 [id number] Ambulatory [place] [place] Repository 04/15/2018/04/18/20 [id number] Ambulatory [place] ing:[place] Repository 04/11/2018/04/13/20 [id number] Ambulatory [facility] [place] Repository 03/28/2018/03/29/20 [id number] Ambulatory [place] [place] Repository 03/25/2018/03/28/20 [id number] Ambulatory [place] [place] Repository 03/25/2018/03/25/20 [id number] Ambulatory [place] [facility] [place] Repository 03/14/2018/03/15/20 [id number] Ambulatory [place] [facility] [place] Repository 02/28/2018/03/01/20 [id number] Amb[facility] [place] [facility] [place] Repository 02/25/2018/02/29/20 [id number] Ambulatory [place] [facility] [place] Repository 02/25/2018/02/26/20 [id number] Ambulatory [place] [facility] [place] Repository 02/14/2018/02/17/20 [id number] Ambulatory [place] [place] Repository 01/31/2018/02/02/20 [id number] Ambulatory [place] [facility] [place] Repository 01/28/2018/02/01/20 [id number] Ambulatory [place] [facility] [place] Repository 01/28/2018/01/29/20 [id number] Ambulatory [place] [facility] [place] Repository 01/17/2018/01/19/20 [id number] Ambulatory [place] [facility] [place] Repository 01/06/2018/01/21/20 [id number] Ambulatory [place] [facility] [place] Repository 01/04/2018/01/07/20 [id number] Ambulatory [place] [facility] [place] Repository 01/03/2018/01/05/20 [id number] Ambulatory [place] [facility] [place] Repository 01/03/2018/01/05/20 [id number] Ambulatory [place] [facility] [place] Repository 12/31/2017/01/04/20 [id number] [facility] [place] [facility] 12/21/2017/12/22/19 [id number] [facility] [place] [facility] 12/21/2017/12/23/19 [id number] [facility] [place] [facility] 12/06/2017/12/08/19 [id number] [facility] [place] 12/06/2017/12/07/19 [id number] [facility] [place] 12/03/2017/12/07/19 [id number] [facility] [place] 12/03/2017/12/04/19 [id number] [facility] [place] 11/23/2017/11/25/19 [id number] [facility] [place] 11/23/2017/11/25/19 [id number] [facility] [place] 11/23/2017/11/24/19 [id number] [facility] [place] 11/22/2017/11/24/19 [id number] [facility] [place] 11/22/2017/11/24/19 [id number] [facility] [place] 11/08/2017/11/10/19 [id number] [facility] [place] 11/08/2017/11/10/19 [id number] [facility] [place] 10/25/2017/10/27/19 [id number] [facility] [place] 10/22/2017/10/26/19 [id number] [facility] [place] 10/22/2017/10/23/19 [id number] [facility] [place] 10/15/2017/10/19/19 [id number] Chente Gómez Inpatient [place] [facility] ing:[id number]: Repository [id number]: 1 10/15/2017 [id number] Chente Gómez Ambulatory [facility] Repository 10/15/2017 [id number] Chente Gómez Ambulatory [facility] Repository 10/15/2017 [id number] Chente Gómez Ambulatory [facility] Repository 10/15/2017 [id number] Chente Gómez Ambulatory [facility] Repository 10/11/2017/10/13/19 [id number] Ambulatory [address] Repository 09/27/2017/09/29/19 [id number] Ambulatory [address] Repository 09/24/2017/09/28/19 [id number] Ambulatory [address] Repository 09/24/2017/09/25/19 [id number] Ambulatory [address] [place] 09/14/2017/09/16/19 [id number] Ambulatory [address] [place] 09/03/2017/09/04/19 [id number] Ambulatory [address] [place] 08/30/2017/09/01/19 [id number] Ambulatory [address] [place] 08/27/2017 [id number] Ambulatory [facility] [place] 08/27/2017/08/31/19 [id number] Ambulatory [place] [address] [facility] [place] 08/27/2017/08/28/19 [id number] Ambulatory [address] [place] 08/03/2017 [id number] Ambulatory [facility] ing:MTLAB Repository 08/02/2017/08/04/19 [id number] Ambulatory [address] Repository 07/30/2017/08/03/19 [id number] Ambulatory [address] [place] 07/30/2017/07/31/19 [id number] Ambulatory [address] [place] 07/28/2017/07/29/19 [id number] [facility] [place] 07/28/2017/07/30/19 [id number] [facility] [place] 07/28/2017/07/29/19 [id number] [facility] [place] 07/28/2017/07/29/19 [id number] [facility] [place] 07/19/2017/07/21/19 [id number] [facility] [place] 07/05/2017/07/07/19 [id number] [facility] [place] 07/02/2017/07/03/19 [id number] [facility] [place] 07/02/2017/07/06/19 [id number] [facility] [place] [place] 06/21/2017/06/23/19 [id number] [facility] [place] 06/08/2017/06/09/19 [id number] [facility] [place] 06/07/2017/06/07/19 [id number] [facility] [place] 06/07/2017/06/07/19 [id number] [facility] [place] 05/24/2017/05/25/19 [id number] Ambulatory [place] [facility] [place] PAYERS PAYERS ENCOUNTER GUARANTOR PAYER SUBSCRIBER SOURCE 05/11/2018 Kanu Jenkins Primary Kanu A [place] [id number] [place] Insurance:MEDICARE MannDOB: [place] PART A [facility] [id number] [id number]: (330) Number: Repository [phone] () [id number] Date:2018-04-01 05/11/2018 Secondary NOT GIVENUNK [place] Insurance:SELF PAY [facility] Number: Effective Repository Date:2018-04-19 04/15/2018 Kanu Jenkins Primary Kanu A [place] [id number] [place] Insurance:MEDICARE MannDOB: [place] PART A [facility] [id number] [id number]: (330) Number: Repository [phone] () [id number] Date:2018-04-01 04/15/2018 Secondary NOT GIVENUNK [place] Insurance:SELF PAY [facility] Number: Effective Repository Date:2018-04-01 10/15/2017 Kanu A Primary Kanu A [place] [id number] [place] Insurance:MEDICARE MannDOB: [place] PART A [facility] [id number] [id number]: (330) Number: Repository [phone] () [id number] Date:2017-10-15 10/15/2017 Secondary NOT GIVENUNK [place] Insurance:SELF PAY [facility] Number: Effective Repository Date:2017-10-15 10/15/2017 Kanu A Primary Kanu A [place] [id number] [place] Insurance:MEDICARE MannDOB: [place] PART A [facility] [id number] [address]Tel: (330) Number: Repository [phone] () [id number] Date:2017-10-15 10/15/2017 Secondary NOT GIVENUNK [place] Insurance:SELF PAY [facility] Number: Effective Repository Date:2017-10-15 10/15/2017 Kanu A Primary Kanu A [place] [id number] [place] Insurance:MEDICARE MannDOB: [place] PART A [facility] [id number] [id number]: (330) Number: Repository [phone] () [id number] Date:2017-10-15 10/15/2017 Secondary NOT GIVENUNK [place] Insurance:SELF PAY [facility] Number: Effective Repository Date:2017-10-15 10/15/2017 Kanu A Primary Kanu A [place] [id number] [place] Insurance:MEDICARE MannDOB: [place] PART A [facility] [id number] [address]Tel: (330) Number: Repository [phone] () [id number] Date:2017-10-15 10/15/2017 Secondary NOT GIVENUNK [place] Insurance:SELF PAY [facility] Number: Effective Repository Date:2017-10-15 10/15/2017 Kanu A Primary Kanu A [place] [id number] [place] Insurance:MEDICARE MannDOB: [place] PART A [facility] [id number] [address]Zbl: (330) Number: Repository [phone] () [id number] Date:2017-10-15 10/15/2017 Secondary NOT GIVENUNK [place] Insurance:SELF PAY [facility] Number: Effective Repository Date:2017-10-15 08/03/2017 Kanu A Primary Kanu Gregory Schafer [id number] [place] Insurance:MEDICARE MannDOB: [place] PART A [facility] [id number] [address]Ozu: (330) Number: Repository [phone] () [id number] Date:2017-08-03 08/03/2017 Secondary NOT GIVENUNK [place] Insurance:SELF PAY [facility] Number: Effective Repository Date:2017-08-03
== END 2018-04-18 23:59 ==
LOC: WC 09:30
PROVIDERS: Family Provider Family Medicine; PCP Family Medicine; Visit Provider Nurse Practitioner
DX: T81.30XA Disruption of wound, unspecified, initial encounter (principal); Y84.8 Other medical procedures as the cause of abnormal reaction of the patient, or of later complication, without mention of misadventure at the time of the procedure; A28.1 Cat-scratch disease; Z86.711 Personal history of pulmonary embolism; Z86.718 Personal history of other venous thrombosis and embolism; E11.9 Type 2 diabetes mellitus without complications; I87.2 Venous insufficiency (chronic) (peripheral); R60.0 Localized edema; Z85.43 Personal history of malignant neoplasm of ovary; Z79.84 Long term (current) use of oral hypoglycemic drugs; Z79.899 Other long term (current) drug therapy; Z79.01 Long term (current) use of anticoagulants
CPT/HCPCS: 11042; 87070; 87075; 87077; 87186; 87205; 99212; 99213; G0463

== ENCOUNTER 2018-05-11 10:20 | Outpatient (RCR) | payer MEDICARE, SELFPAY ==
[2018-04-19 01:34] VITALS: BP 132/72; PULSE 95; RESP 18; TEMP 36.2
[2018-05-11 10:21] VITALS: BP 155/72; PULSE 89; RESP 18; TEMP 36.2; BMI 40.8
--- NOTE | 2018-05-11 12:06 | HP.PCM_ITS ---
(1) Ulcer of right lower extremity with fat layer exposed Status: Acute Current Visit: Yes Code(s): L97.912 - Non-pressure chronic ulcer of unspecified part of right lower leg with fat layer exposed (2) Bilateral lower extremity edema Status: Chronic Current Visit: Yes Code(s): R60.0 - Localized edema (3) Type II diabetes mellitus Status: Chronic Current Visit: Yes Code(s): E11.9 - Type 2 diabetes mellitus without complications History of Present Illness Chief Complaint: Right lower extremity ulcer. History of Wound: Ms. Keys is a 72-year-old with past medical history as stated above who was recently discharged from the wound center after she was managed for lower extremity ulcer. She states that about a week ago she noted significant swelling of her bilateral lower extremities and some blistering. Subsequent opening of 1 of the blisters about 3 days ago. She has also noted increased pain and redness in the right lower extremity. She denies chills, fever or otherwise feeling of unwell. Past Medical History Past Medical History: Chronic Problems Bilateral lower extremity edema (Chronic) Asthma (Chronic) Reported, severity unknown History of DVT (deep vein thrombosis) (Chronic) History of pulmonary embolism (Chronic) Type II diabetes mellitus (Chronic) Cancer of ovary (Chronic) Anemia (Chronic) Venous insufficiency (Chronic) Poor dentition (Chronic) Surgical History: cholecystectomy, hysterectomy - For uterine fibroids, total hip arthroplasty - Right, total knee arthroplasty - Left, - - Surgery for bilateral carpal tunnel syndrome. Resection of ovarian cancer at [facility] in 2016, debridement of the abdominal wall with wound closure by Dr. Garza in June 2015 Allergies/Adverse Reactions: Allergies clindamycin Allergy (Verified 10/15/17 09:50) Other meperidine HCl [From Demerol] Allergy (Verified 10/15/17 09:50) Other Penicillins Allergy (Verified 10/15/17 09:50) Itching adhesive tape Adverse Reaction (Verified 10/15/17 09:50) Other BLISTERS aspirin Adverse Reaction (Verified 10/15/17 09:50) Other diazepam [From Valium] Adverse Reaction (Verified 10/15/17 09:50) Nausea/Vom/Diarrhea egg Adverse Reaction (Verified 10/15/17 09:50) Diarrhea morphine Adverse Reaction (Verified 10/15/17 09:50) Nausea/Vom/Diarrhea sulfamethoxazole [From Bactrim] Adverse Reaction (Verified 10/15/17 09:50) Nausea/Vom/Diarrhea trimethoprim [From Bactrim] Adverse Reaction (Verified 10/15/17 09:50) Nausea/Vom/Diarrhea Home Medications: Ambulatory Orders Medication Instructions Recorded Acetaminophen [Tylenol] 325 mg PO Q6H PRN PRN 05/29/15 Cyanocobalamin [Vitamin B12] 1,000 mcg PO DAILY@0800 05/29/15 Cyclobenzaprine [Flexeril] 10 mg PO QHS 05/29/15 Metformin HCl [Glucophage] 500 mg PO BIDCM 05/29/15 Apixaban [Eliquis] 2.5 mg PO BID 06/12/15 Multivitamin [Daily Multiple 1 tab PO DAILY 06/12/15 Vitamin] Furosemide [Lasix] 40 mg PO BID 07/16/15 Oxycodone [Oxyir] 5 mg PO Q4H PRN PRN #60 tablet 07/20/15 proMETHazine tablet [Phenergan 25 mg PO 4X/DAY PRN PRN #20 tablet 07/20/15 tablet] Albuterol IH (ProAir) [Proair Hfa] 2 puff INHALATION Q6H PRN PRN 05/27/16 Cetirizine HCl [Zyrtec] 10 mg PO PRN PRN 05/27/16 Ondansetron HCl [Zofran] 4 mg PO 4X/DAY PRN PRN 05/27/16 Sumatriptan Succinate [Imitrex] 50 mg PO .X1 PRN 05/27/16 Oxycodone HCl [Oxycodone HCl ER] 15 mg PO BID 12/25/16 Cephalexin [Keflex] 500 mg PO Q8 #15 cap 10/18/17 Doxycycline 100 mg PO BID #10 cap 10/18/17 Ascorbic Acid 1,000 mg PO DAILY 04/01/18 Benadryl 25 mg PO DAILY 04/01/18 Cholecalciferol (VIT D3) [Vitamin 2,000 iu PO DAILY 04/01/18 D3] - Family History Maternal No pertinent history, - - no cancer Paternal No pertinent history Smoking Status: Never smoker Review of Systems Constitutional: Denies: Anorexia, Chills, Fever Eyes: Denies: Blurred vision, Redness HEENT: Denies: Difficulty Swallowing Cardiovascular: Denies: Chest Pain, Chest Tightness Respiratory: Denies: Hemoptysis Gastrointestinal: Denies: Abdominal Pain, Hematemesis, Vomiting Skin: Denies: Jaundice - Physical Exam Vital Signs Temp Pulse Resp BP 97.1 F L 89 18 155/72 H 05/11/18 10:21 05/11/18 10:21 05/11/18 10:21 05/11/18 10:21 General: Alert, Oriented x3, Cooperative, No apparent distress HEENT: Atraumatic, Normocephalic Oral: Moist Mucosa Neck: Supple Lungs: Normal air movement Cardiovascular: Regular rate, Regular Rhythm, Normal S1, Normal S2 Extremities: No cyanosis, Edema Skin: Ulcer/ Wound Wound Measurements and Assessment WC - Nurse 1 - General Ulcer Measurement Start: 05/11/18 10:21 Freq: Status: Active Protocol: Activity Type Activity Date Activity User E-Sign Co-Sign Detail Recorded Client Recorded Date Recorded By Document 05/11/18 10:21 [id number] 05/11/18 10:32 05/11/18 10:21 Wound Center Nurse 1 [Ulcer Assessment] #2 right medial lower leg -Combined with other wound No -Current Size (cm) - Length 0.5 -Current Size (cm) - Width 0.4 -Current Size (cm) - Depth 0.1 -Total Square Cm 0.20 -Photo Taken Yes -Tunneling No -Undermining/Tunneling No -Circular Undermining No -Exudate Amt Small -Exudate Type Serosanguineous -Wound Margin Distinct, Outline Attached -Granulation Amt Medium (34-66%) -Granulation Quality [place] -Slough/Fibrin Yes -Necrosis Amt Small (1-33%) -Necrotic Tissue Type Adherent Slough -Structure Exposed N/A -Texture (Kanwal-wound Skin Appearance) Assessed -Moisture (Kanwal-wound Skin Appearance Assessed ) -Color (Kanwal-wound Skin Appearance) Assessed Erythema -Temperature (Kanwal-wound Skin No Abnormality Appearance) (Pt Warm) -Tenderness on Palpation (Kanwal-wound No Skin Appearance) -Ulcer Cleansing Wound Cleanser -Foul Odor after Cleansing No -Anesthetic Used 5% Lidocaine Gel [Edema Assessment] -Lower Limb Edema Present Yes -Right Calf (cm) 55.5 -Right Ankle (cm) 28.2 -Left Calf (cm) 55.5 -Left Ankle (cm) 32 WC - Nurse 2 - General Ulcer CM Notes Start: 05/11/18 10:21 Freq: Status: Active Protocol: Activity Type Activity Date Activity User E-Sign Co-Sign Detail Recorded Client Recorded Date Recorded By Document 05/11/18 10:46 MW [id number] 05/11/18 10:51 MW 05/11/18 10:46 Wound Center Nurse 2 [Procedure/Treatment] #2 right medial lower leg -Time 10:47 -Correct Patient Yes -Correct Side, Site, Position Yes -Correct Procedure Yes -Procedure Performed Yes -Type of Procedure Debridement -Clinical Debridement Subcutaneous -Post Debridement Size (cm) - Length 1.0 -Post Debridement Size (cm) - Width 0.5 -Post Debridement Size (cm) - Depth 0.1 -Total Square Cm 0.50 -Wound/Ulcer Outcome Not Healed -Ulcer Cleansing Rinsed/ Irrigated with Saline -Foul Odor after Cleansing No -Bioengineered Tissue No -Bleeding Controlled with Pressure -Offloading No -Treatment Response Procedure Tolerated Well [See Physician Procedure note for Specifics] Pain Scale: 0-10 Numeric [Pain] -Is Patient Pain Free? Yes Musculoskeletal: No Muscle Wasting Neurological: Cranial nerves II-XII grossly intact Psych/Mental Status: Normal Affect Debridement Note Post-Debridement Measurements/Treatment - Nurse 2 - General Ulcer CM Notes Start: 05/11/18 10:21 Freq: Status: Active Protocol: Activity Type Activity Date Activity User E-Sign Co-Sign Detail Recorded Client Recorded Date Recorded By Document 05/11/18 10:46 MW [id number] 05/11/18 10:51 MW 05/11/18 10:46 Wound Center Nurse 2 #2 right medial lower leg -Time 10:47 -Correct Patient Yes -Correct Side, Site, Position Yes -Correct Procedure Yes -Procedure Performed Yes -Type of Procedure Debridement -Clinical Debridement Subcutaneous -Post Debridement Size (cm) - Length 1.0 -Post Debridement Size (cm) - Width 0.5 -Post Debridement Size (cm) - Depth 0.1 -Total Square Cm 0.50 -Wound/Ulcer Outcome Not Healed -Ulcer Cleansing Rinsed/ Irrigated with Saline -Foul Odor after Cleansing No -Bioengineered Tissue No -Bleeding Controlled with Pressure -Offloading No -Treatment Response Procedure Tolerated Well Pain Scale: 0-10 Numeric Is Patient Pain Free? Yes Wound debrided: Right lower extremity Wound Grade/Stage: Stage II Type of Debridement: Excisional debridement Anesthesia Used: 4% Lidocaine Solution Depth: Down to and including healthy tissue, in the subcutaneous layer Percentage of wound debrided: 100 Instrument Used: 3mm curette Tissue Removed: Slough and devitalized tissue Severity: Fat Layer Exposed Amount of bleeding with debridement: Mild Bleeding Controlled with: Pressure Patient tolerated procedure well Assessment/Plan Active Problems Bilateral lower extremity edema (Chronic) Ulcer of right lower extremity with fat layer exposed (Acute) Type II diabetes mellitus (Chronic) Assessment: Recurrent right lower extremity ulcer in a patient with diabetes mellitus and bilateral lower extremity edema. Right lower extremity cellulitis (mild). Plan: Debridement done as documented above. Procedure was well-tolerated. Right lower extremity concerning for cellulitis due to differential warmth, tenderness and erythema. Patient allergic to a couple of antibiotics. I do not believe she needs linezolid at this time. Will start on levofloxacin per past culture. Aquacel extra to the ulcer with Xeroform over erythematous area. Change daily. Double layer Tubigrip for edema management. She was advised to elevate lower extremities when seated in bed. Optimal blood sugar control. Increased protein intake. All her questions were answered and she was advised to call with any further questions or concerns. This note was generated with [employer] software. It may contain incorrect words, spelling, and punct uation that were not noted in checking the note before signing.
--- OUTSIDE RECORDS SUMMARY | 2018-07-13 07:14 | XMS RPT_ITS ---
:1945 Author Organization OHIP Support Name Relationship Address Phone MAGUE AJ Unavailable Unavailable + [place] [address] R Unavailable Unavailable Unavailable TRAYNHAM, CLAUDE Unavailable [address] + [place] [address] JEAN MARIE, LES Unavailable Unavailable + [place] [address] R Unavailable Unavailable Unavailable TRAYNHAM, CLAUDE Unavailable [address] + [place] [address] JEAN MARIE LES Unavailable Unavailable + [place] [address] R Unavailable Unavailable Unavailable TRAYNHAM, CLAUDE Unavailable [address] + [place] [address] JEAN MARIE, LES Unavailable Unavailable + [place] [address] R Unavailable Unavailable Unavailable TRAYNHAM, CLAUDE Unavailable [address] + [place] [address] JEAN MARIE, LES Unavailable Unavailable + [place] [address] R Unavailable Unavailable Unavailable TRAYNHAM, CLAUDE Unavailable [address] + [place] [address] JEAN MARIE, LES Unavailable Unavailable + [place] [address] R Unavailable Unavailable Unavailable TRAYNHAM, CLAUDE Unavailable [address] + [place] [address] JEAN MARIE, LES Unavailable Unavailable + [place] [address] R Unavailable Unavailable Unavailable TRAYNHAM, CLAUDE Unavailable [address] + [place] [address] AJ, LES Unavailable Unavailable + [place] [address] R Unavailable Unavailable Unavailable CLAUDE CAMPOS Unavailable [address] + [place] [address] Care Team Providers Name Role Phone MASCI, [...] MASCI, ISIDRO A Referring Unavailable NGUYEN LÓPEZ (MILLER HELPER) Attending Unavailable MASCI, ISIDRO A Referring Unavailable MASCI, ISIDRO A Referring Unavailable MASCI, ISIDRO A Referring Unavailable MASCI, ISIDRO Gregory Referring Unavailable IZZY, LILYIA Attending Unavailable MASCI, ISIDRO A Referring Unavailable [...] MASCI, ISIDRO A Referring Unavailable NGUYEN LÓPEZ (MILLER HELPER) Attending Unavailable MASCI, ISIDRO A Referring Unavailable MASCI, ISIDRO A Referring Unavailable MASCI, ISIDRO A Referring Unavailable CarranzaCassandra SHOP ASSISTANT-C Attending Unavailable Daigle, Chente Primary Care Unavailable Carranza, Cassandra SHOP ASSISTANT-C Attending Unavailable Daigle, Chente Primary Care Unavailable Justen Mantilla Attending Unavailable Justen Mantilla Referring Unavailable Daigle, Chente Primary Care Unavailable Daigle, Chente Primary Care Unavailable Jopperi, Chente Admitting Unavailable [...] 12/06/2017 Active Parastomal hernia CATHY CABRERA Active [place] without obstruction Clinic Main or gangrene / [place] K43.5(ICD-10) Repository 11/23/2017 Active Malignant melanoma of NA Active [place] skin, unspecified / Clinic Main C43.9(ICD-10) [place] Repository 08/03/2017 Unknown H20.00 - Unspecified Justen Mantilla Active [place] 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 / Hospital H20.00(ICD-10) Repository 06/04/2015 Active 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 / Repository C78.6(ICD-10) 06/04/2015 Active Malignant neoplasm of NA Active [place] left ovary / Clinic Main C56.2(ICD-10) [place] Repository 07/28/2017 Active Pelvic and perineal NA Active [place] pain / R10.2(ICD-10) Clinic Main [place] Repository 12/24/2016 Active Malignant neoplasm of NA Active [place] vagina / C52(ICD-10) Clinic Main [place] Repository 06/07/2017 Active Unknown / ISIDRO ESTEVEZ Active [place] UNK(Unknown) Clinic Main [place] Repository PROCEDURES PROCEDURES No Procedure Records FoundRESULTS RESULTS WOUND CTR HISTORY Observed: 05/12/2018 Status: F Source: [place] [facility] 6:52 PM [facility] [place] [facility] [address] [place] [address] Wound Ctr History AND Physical 05/11/18 1159 MR#: [id number] Acct: [id number] Name: KANU AJ Rep #: [id number] : 1945 72 From: Karen Kilgore MD PCP: Chente Daigle MD Status: REG RCR Y Location: WC (1) Ulcer of right lower extremity with fat layer exposed Status: Acute Current Visit: Yes Code(s): L97.912 - Non- pressure chronic ulcer of unspecified part of right lower leg with fat layer exposed (2) Bilateral lower extremity edema Status: Chronic Current Visit: Yes Code(s): R60.0 - Localized edema (3) Type II diabetes mellitus Status: Chronic Current Visit: Yes Code(s): E11.9 - Type 2 diabetes mellitus without complications History of Present Illness Chief Complaint: Right lower extremity ulcer. History of Wound: Ms. Aj is a 72-year-old with past medical history as stated above who was recently discharged from the wound center after she was managed for lower extremity ulcer. She states that about a week ago she noted significant swelling of her bilateral lower extremities and some blistering. Subsequent opening of 1 of the blisters about 3 days ago. She has also noted increased pain and redness in the right lower extremity. She denies chills, fever or otherwise feeling of unwell. Past Medical History Past Medical History: Chronic Problems Bilateral lower extremity edema (Chronic) Asthma (Chronic) Reported, severity unknown History of DVT (deep vein thrombosis) (Chronic) History of pulmonary embolism (Chronic) Type II diabetes mellitus (Chronic) Cancer of ovary (Chronic) Anemia (Chronic) Venous insufficiency (Chronic) Poor dentition (Chronic) Surgical History: cholecystectomy, hysterectomy - For uterine fibroids, total hip arthroplasty - Right, total knee arthroplasty - Left, - - Surgery for bilateral carpal tunnel syndrome. Resection of ovarian cancer at [facility] in 2015, debridement of the abdominal [...] Never smoker Review of Systems Constitutional: Denies: Anorexia, Chills, Fever Eyes: Denies: Blurred vision, Redness HEENT: Denies: Difficulty Swallowing Cardiovascular: Denies: Chest Pain, Chest Tightness Respiratory: Denies: Hemoptysis Gastrointestinal: Denies: Abdominal Pain, Hematemesis, Vomiting Skin: Denies: Jaundice - Physical Exam Vital Signs Temp Pulse Resp BP 97.1 F L 89 18 155/72 H 05/11/18 10:21 05/11/18 10:21 05/11/18 10:21 05/11/18 10:21 General: Alert, Oriented x3, Cooperative, No apparent distress HEENT: Atraumatic, Normocephalic Oral: Moist Mucosa Neck: Supple Lungs: Normal air movement Cardiovascular: Regular rate, Regular Rhythm, Normal S1, Normal S2 Extremities: No cyanosis, Edema Skin: Ulcer/ Wound Wound Measurements and Assessment WC - Nurse 1 - General Ulcer Measurement Start: 05/11/18 10:21 Freq: Status: Active Protocol: Activity Type Activity Date Activity User E-Sign Co-Sign Detail Recorded Client Recorded Date Recorded By Document 05/11/18 10:21 RB [id number] 05/11/18 10:32 RB Wound Center Nurse 1 WC - Nurse 2 - General Ulcer CM Notes Start: 05/11/18 10:21 Freq: Status: Active Protocol: Activity Type Activity Date Activity User E-Sign Co-Sign Detail Recorded Client Recorded Date Recorded By Document 05/11/18 10:46 MW [id number] 05/11/18 10:51 MW Wound Center Nurse 2 [Procedure/Treatment] Musculoskeletal: No Muscle Wasting Neurological: Cranial nerves II-XII grossly intact Psych/Mental Status: Normal Affect Debridement Note Post-Debridement Measurements/Treatment WC - Nurse 2 - General Ulcer CM Notes Start: 05/11/18 10:21 Freq: Status: Active Protocol: Activity Type Activity Date Activity User E-Sign Co-Sign Detail Recorded Client Recorded Date Recorded By Document 05/11/18 10:46 MW [id number] 05/11/18 10:51 MW Wound Center Nurse 2 #2 right medial lower leg -Time 10:47 -Correct Patient Yes -Correct Side, Site, Position Yes Wound debrided: Right lower extremity Wound Grade/Stage: Stage II Type of Debridement: Excisional debridement Anesthesia Used: 4% Lidocaine Solution Depth: Down to and including healthy tissue, in the subcutaneous layer Percentage of wound debrided: 100 Instrument Used: 3mm curette Tissue Removed: Slough and devitalized tissue Severity: Fat Layer Exposed Amount of bleeding with debridement: Mild Bleeding Controlled with: Pressure Patient tolerated procedure well Assessment/Plan Active Problems Bilateral lower extremity edema (Chronic) Ulcer of right lower extremity with fat layer exposed (Acute) Type II diabetes mellitus (Chronic) Assessment: Recurrent right lower extremity ulcer in a patient with diabetes mellitus and bilateral lower extremity edema. Right lower extremity cellulitis (mild). Plan: Debridement done as documented above. Procedure was well-tolerated. Right lower extremity concerning for cellulitis due to differential warmth, tenderness and erythema. Patient allergic to a couple of antibiotics. I do not believe she needs linezolid at this time. Will start on levofloxacin per past culture. Aquacel extra to the ulcer with Xeroform over erythematous area. Change daily. Double layer Tubigrip for edema management. She was advised to elevate lower extremities when seated in bed. Optimal blood sugar control. Increased protein intake. All her questions were answered and she was advised to call with any further questions or concerns. This note was generated with ModuleQation software. It may contain incorrect words, spelling, and punctuation that were not noted in checking the note before signing. 05/12/181851 <Electronically signed by Karen Kilgore MD> Date Karen Kilgore MD CC: Signed OBSOLETE Observed: 05/06/2018 Status: COMPLETED Source: [place] 12:00 AM [facility] REPOSITORY Refill (CRUZ) KANU AJ ([id number]) 1945 F Date Time Provider Department 05/06/18 ISIDRO ESTEVEZ During your visit today, we recorded the following information about you: Mayda Norris 05/06/2018 8:49 AM Signed Patient has been identified by name and date of : Yes Last office visit in this department: Visit date not found RX INSTRUCTIONS: Print and leave at the front end software engineer. Call patient when complete. Patient phones requesting refills as follows: Pending Prescriptions Disp Refills OXYCODONE 5 MG TABLET 180 tablet 0 Sig: Take 1-2 tablets by mouth every 4 hours as needed for up to 7 days. ALEXA Class: C-II [place]: No Please review and advise. Mayda Psr Nicklin Allergies As of Date: 05/06/2018 Noted Allergy [...] 05/06/18 EMMAN Observed: 04/25/2018 Status: COMPLETED Source: [place] 12:00 AM [facility] REPOSITORY Telephone (HEMAWS) KANU AJ ([id number]) 1945 F Date Time Provider Department 04/25/18 ISIDRO ESTEVEZ During your visit today, we recorded the following information about you: Isidro Estevez DO 04/25/2018 8:03 AM Signed Can let her know CTs came out showing good results. A few mildly enlarged lymph nodes in the pelvis that have been stable over the last few scans. We will plan to continue current treatment. DO Shelia Bentley LPN 04/25/2018 8:31 AM Signed Patient notified and verbalized understanding. Shelia Taylor 04/25/2018 8:41 AM Signed Patient was asking [...] 04/25/18 PROGRESS Observed: 04/22/2018 Status: COMPLETED Source: [place] 11:02 AM [facility] REPOSITORY HNO ID: [id number] Author: Nguyen López Service: (none) Author Type: [...] hysterectomy ~31 yrs ago who presented to [facility] ED 07/2013?with c/o dyspnea. CT chest significant for?large b/l PE. One was a saddle embolus draped across the bifurcation of the main pulmonary artery and extending into both the right and left pulmonary artery segments per the CT report. Patient was transferred to [facility]. Not clear if she underwent [...] in abdomen. ? Patient was admitted to [facility] 04/19/2015 for acute left LE small DVT?and possible cellulitis of the same leg. She was treated with vancomycin and anticoagulated with Lovenox and transferred to [facility] ([facility]) under the care of a gynecologic oncology [...] pT2b pN0. ? She was discharged to [facility]. Since the time of surgery, she had been having abdominal pain that is sharp and low in abdomen. It crescendos and is partially relieved with a BM. Returns shortly thereafter. Stools were loose and she had been having intermittent nausea with poor appetite. Was transferred to [facility] 05/09/2015 however for low Hgb of 6.1 g/dL. Received transfusion and admitted to [facility]. ? She received a blood transfusion. She was discharged back to the nursing facility and subsequent discharge home. She had been doing home physical therapy. She was making improvements. Initially seen here in plan was for adjuvant chemotherapy once the acute issues were resolved. ? She was admitted to [facility] with hypotension and acute kidney injury on [...] Immunostains were positive for HMB-45, SOX-10 and [place]-1. CD3, CD20, CD45, CD138, inhibin, [place] 8 and S100 were negative. No BRAF mutation. ? Patient was admitted to [facility] for fever and malaise. She was found to have Escherichia coli sepsis. She was treated with broad-spectrum antibiotics. Urine appeared to be the source. She also received a 2 unit red blood cell transfusion. She underwent colonoscopy where in she was found to have extensive involvement of the rectum and was thereafter transferred to [facility]. On initial exam was determined that the [...] She was seen by general surgery at [facility]. Hernia repair was not advised due to [...] 3.70 - 11.00 k/uL 6.34 3.83 RBC, [place] 3.90 - 5.20 m/uL 4.31 4.15 Hemoglobin, [place] 11.5 - 15.5 g/dL 12.6 12.2 Hematocrit, [place] 36.0 - 46.0 % 40.9 38.4 MCV, [place] 80.0 - 100.0 fL 94.9 92.5 MCH, [place] 26.0 - 34.0 pg 29.2 29.4 MCHC, [place] 30.5 - 36.0 g/dL 30.8 31.8 RDW, [place] 11.5 - 15.0 % 14.7 13.6 Platelet Cnt, [place] 150 - 400 k/uL 167 115 (L) MPV, [place] 9.0 - 12.7 fL 10.5 9.6 Absol [...] APRN.EMMA CNOVSP Observed: 04/22/2018 Status: COMPLETED Source: [place] 10:30 AM [facility] REPOSITORY Visit (SP) Office (CRUZ) KANU AJ ([id number]) 1945 F Date Time Provider Department 04/22/18 10:30 AM NGUYEN LÓPEZ During your visit today, we recorded the following information about you: Temperature Pulse Blood pressure Weight 98 degrees 95/minute 135/73 95.7 kg Shelia Sanchez LPN 04/22/2018 11:02 AM Signed Est patient. Discuss recent labs and CT scan, treatment Wednesday. Shelia López APRN.CNP 04/25/2018 8:01 AM Signed Chief Complaint Patient presents with: Established Patient HPI: Kanu Aj is a 72 year old female who presents here today for evaluation for treatment on Wednesday. Per Dr. Estevez's previous note: H/o DM2, asthma, VTE, and possible mild CKD as well has hysterectomy ~31 yrs ago who presented to [facility] ED 07/2013?with c/o dyspnea. CT chest significant for?large b/l PE. One was a saddle embolus draped across the bifurcation of the main pulmonary artery and extending into both the right and left pulmonary artery segments per the CT report. Patient was transferred to [facility]. Not clear if she underwent [...] in abdomen. ? Patient was admitted to [facility] 04/19/2015 for acute left LE small DVT?and possible cellulitis of the same leg. She was treated with vancomycin and anticoagulated with Lovenox and transferred to [facility] ([facility]) under the care of a gynecologic oncology [...] pT2b pN0. ? She was discharged to [facility]. Since the time of surgery, she had been having abdominal pain that is sharp and low in abdomen. It crescendos and is partially relieved with a BM. Returns shortly thereafter. Stools were loose and she had been having intermittent nausea with poor appetite. Was transferred to [facility] 05/09/2015 however for low Hgb of 6.1 g/dL. Received transfusion and admitted to [facility]. ? She received a blood transfusion. She was discharged back to the nursing facility and subsequent discharge home. She had been doing home physical therapy. She was making improvements. Initially seen here in plan was for adjuvant chemotherapy once the acute issues were resolved. ? She was admitted to [facility] with hypotension and acute kidney injury on [...] Immunostains were positive for HMB-45, SOX-10 and [place]-1. CD3, CD20, CD45, CD138, inhibin, [place] 8 and S100 were negative. No BRAF mutation. ? Patient was admitted to [facility] for fever and malaise. She was found to have Escherichia coli sepsis. She was treated with broad-spectrum antibiotics. Urine appeared to be the source. She also received a 2 unit red blood cell transfusion. She underwent colonoscopy where in she was found to have extensive involvement of the rectum and was thereafter transferred to [facility]. On initial exam was determined that the [...] She was seen by general surgery at [facility]. Hernia repair was not advised due to [...] Ref Rng AND Units 03/25/2018 04/20/2018 WBC, [place] 3.70 - 11.00 k/uL 6.34 3.83 RBC, [place] 3.90 - 5.20 m/uL 4.31 4.15 Hemoglobin, [place] 11.5 - 15.5 g/dL 12.6 12.2 Hematocrit, [place] 36.0 - 46.0 % 40.9 38.4 MCV, [place] 80.0 - 100.0 fL 94.9 92.5 MCH, [place] 26.0 - 34.0 pg 29.2 29.4 MCHC, [place] 30.5 - 36.0 g/dL 30.8 31.8 RDW, [place] 11.5 - 15.0 % 14.7 13.6 Platelet Cnt, [place] 150 - 400 k/uL 167 115 (L) MPV, [place] 9.0 - 12.7 fL 10.5 9.6 Absol [...] and agrees with the plan. Nguyen López APRN.MILLER HELPER Referring Provider: ISIDRO ESTEVEZ [[id number]] Allergies As of Date: 04/22/2018 Noted Allergy [...] Shelia Sanchez LPN 04/22/2018 10:38 AM >> SHELIA SANCHEZ LPN WedApr 22, 2018 10:38 AM completed Problem [...] FOR* Visit Notes: >> Shelia Sanchez LPN WedApr 22, 2018 10:39 AM Status: Signed Est patient. Discuss recent labs and CT scan, treatment Wednesday. Shelia Sanchez LPN Encounter Status:Closed by NGUYEN LÓPEZ CNP on 04/25/18 PROGRESS Observed: 04/20/2018 Status: COMPLETED Source: [place] 12:01 PM [facility] REPOSITORY HNO ID: [id number] Author: Carlyn Croft Service: (none) Author Type: [...] Completed: Chest Abdomen Pelvis SIGNED BY: Carlyn Croft April 20, 2018 12:[address] ABD/PEL W IVCON Observed: 04/20/2018 Status: F Source: [place] 11:38 AM [facility] REPOSITORY * * *Final Report* * * DATE OF EXAM: Apr 20 2018 11:38AM [facility] 0530 - CT ABD/PEL W IVCON [...] nodes. Stable thrombus above the IVC filter. Supervisor Sewer Maintenance: [employer] Transcribe Date/Time: Apr 22 2018 4:04P Dictated by : CHRIS MANNING MD This examination was interpreted and the report reviewed and electronically signed by: CHRIS MANNING MD on Apr 22 2018 4:18PM EST [id number] CT CHEST W IVCON Observed: 04/20/2018 Status: F Source: [place] 11:38 AM [facility] REPOSITORY * * *Final Report* * * DATE OF EXAM: Apr 20 2018 11:38AM [facility] 0539 - CT CHEST W IVCON [...] nodes. Stable thrombus above the IVC filter. Supervisor Sewer Maintenance: [employer] Transcribe Date/Time: Apr 22 2018 4:04P Dictated by : CHRIS MANNING MD This examination was interpreted and the report reviewed and electronically signed by: CHRIS MANNING MD on Apr 22 2018 4:18PM EST [id number] [place] ABS GR + CBC Collected: 04/20/2018 Status: F Source: [place] 9:35 AM [facility] REPOSITORY TYPE CODE TESTS RESULT OUT OF REFERENCE UNITS RANGE LAB WWBC 3.70-11.00 k/uL [place] WBC 3.83 LAB WRBC 3.90-5.20 m/uL [place] RBC 4.15 LAB WHGB 11.5-15.5 g/dL [place] Hemoglobin 12.2 LAB WHCT 36.0-46.0 % [place] Hematocrit 38.4 LAB WMCV 80.0-100.0 fL [place] MCV 92.5 LAB WMCH 26.0-34.0 pg [place] MCH 29.4 LAB WMCHC 30.5-36.0 g/dL [place] MCHC 31.8 LAB WRDW 11.5-15.0 % [place] RDW 13.6 LAB WPLT 150-400 k/uL Low [place] Platelet Cnt 115 LAB WMPV 9.0-12.7 fL [place] MPV 9.6 Result Comment: Test performed at: [address] [place] [address]. LAB ABGRAN 1.45-7.50 k/uL Absol Gran 3.49 Count COMP METABOLIC PANEL Collected: 04/20/2018 Status: F Source: [place] 9:35 AM [facility] REPOSITORY TYPE CODE TESTS [...] GFR. TSH Collected: 04/20/2018 Status: F Source: [place] 9:35 AM [facility] REPOSITORY TYPE CODE TESTS RESULT OUT OF RANGE REFERENCE UNITS LAB TSH 0.400-5.500 uU/mL TSH 0.999 Performed By: #### TSH #### [facility] [address] [place] [address] CNPN Observed: 04/15/2018 Status: COMPLETED Source: [place] 12:00 AM [facility] REPOSITORY Telephone (HEMAWS) KANU AJ ([id number]) 1945 F Date Time Provider Department 04/15/18 ISIDRO ESTEVEZ During your visit today, we recorded the following information about you: Romy Alvarez Psaugustine 04/15/2018 10:58 AM Signed [employer] Is calling in regards to patient needing Ostomy supplies please return their call to [phone] Kylah Parker LPN, LPN 04/15/2018 4:12 PM Addendum 3 attempts to [...] F Source: [place] [facility] 11:03 AM [facility] [place] [facility] [address] [place] [address] Wound Ctr History AND Physical 04/01/18 1053 MR#: [id number] Acct: [id number] Name: KANU AJ Rep #: [id number] : 1945 72 From: Cassandra MUELLER PCP: Chente Daigle MD Status: REG RCR [...] tunnel syndrome. Resection of ovarian cancer at [facility] in 2015, debridement of the abdominal [...] L 88 16 158/74 H 04/01/18 09:32 18 09:32 04/01/18 09:32 04/01/18 09:32 General: Oriented x3, Cooperative, [...] Date Recorded By Document 04/01/18 09:32 AN [id number] 04/01/18 09:47 AN Wound Center Nurse 1 [...] Date Recorded By Document 04/01/18 10:11 MW [id number] 04/01/18 10:16 MW Wound Center Nurse 2 [...] Date Recorded By Document 04/01/18 10:11 MW [id number] 04/01/18 10:16 MW Wound Center Nurse 2 [...] Source: [place] CULTURE, DEEP WOUND 10:10 AM [facility] [place] [facility] Gram Stain Gram Stain 1+ Gram [...] 1 S (NF) indicates non-formulary drug at [facility]. Approval by Infectious Disease Specialist required [...] 2 S (NF) indicates non-formulary drug at [facility]. Approval by Infectious Disease Specialist required before non-formulary drugs may be ordered and/or dispensed. * CLSI guidelines does not recommend testing of cephalosporins. This interpretation is deduced from Beta-lactam/penicillin results. Cult, Anaerobic No anaerobic bacteria isolated. 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 3) metastatic vaginal melanoma ? HPI: The patient is a 72 yo female with a PMH significant for DM2, asthma, VTE, and possible mild CKD as well has hysterectomy ~31 yrs ago who presented to [facility] ED 07/2013 with c/o dyspnea. CT chest significant for large b/l PE. One was a saddle embolus draped across the bifurcation of the main pulmonary artery and extending into both the right and left pulmonary artery segments per the CT report. Patient was transferred to [facility]. Not clear if she underwent [...] in abdomen. ? Patient was admitted to [facility] 04/19/2015 for acute left LE small DVT and possible cellulitis of the same leg. She was treated with vancomycin and anticoagulated with Lovenox and transferred to [facility] ([facility]) under the care of a gynecologic oncology [...] pT2b pN0. ? She was discharged to [facility]. Since the time of surgery, she had been having abdominal pain that is sharp and low in abdomen. It crescendos and is partially relieved with a BM. Returns shortly thereafter. Stools were loose and she had been having intermittent nausea with poor appetite. Was transferred to [facility] 05/09/2015 however for low Hgb of 6.1 g/dL. Received transfusion and admitted to [facility]. ? She received a blood transfusion. She was discharged back to the nursing facility and subsequent discharge home. She had been doing home physical therapy. She was making improvements. Initially seen here in plan was for adjuvant chemotherapy once the acute issues were resolved. ? She was admitted to [facility] with hypotension and acute kidney injury on [...] Immunostains were positive for HMB-45, SOX-10 and [place]-1. CD3, CD20, CD45, CD138, inhibin, [place] 8 and S100 were negative. No BRAF mutation. ? Patient was admitted to [facility] for fever and malaise. She was found to have Escherichia coli sepsis. She was treated with broad-spectrum antibiotics. Urine appeared to be the source. She also received a 2 unit red blood cell transfusion. She underwent colonoscopy where in she was found to have extensive involvement of the rectum and was thereafter transferred to [facility]. On initial exam was determined that the [...] She was seen by general surgery at [facility]. Hernia repair was not advised due to [...] cat scratch looks like recurrent cellulitis. NEUROLOGIC: alignment mechanic II-XII are grossly intact. ? ASSESSMENT/PLAN: (C52) [...] CMP monthly with treatment -Follow up with route delivery manager as scheduled. -Repeat CT chest abdomen pelvis [...] DO CNOVSP Observed: 03/25/2018 Status: COMPLETED Source: [facility] 10:00 AM [facility] REPOSITORY Visit (SP) Office (CRUZ) KAUN AJ ([id number]) 1945 F Date Time Provider Department 03/25/18 10:00 AM ISIDRO ESTEVEZ During your visit today, we recorded the following information about you: Temperature Pulse Blood pressure Weight 98.1 degrees 75/minute 142/62 98.4 kg Shelia Hannah OLGUIN 03/25/2018 10:27 AM Signed Est patient. Discuss [...] hysterectomy ~31 yrs ago who presented to [facility] ED 07/2013 with c/o dyspnea. CT chest significant for large b/l PE. One was a saddle embolus draped across the bifurcation of the main pulmonary artery and extending into both the right and left pulmonary artery segments per the CT report. Patient was transferred to [facility]. Not clear if she underwent [...] in abdomen. ? Patient was admitted to [facility] 04/19/2015 for acute left LE small DVT and possible cellulitis of the same leg. She was treated with vancomycin and anticoagulated with Lovenox and transferred to [facility] ([facility]) under the care of a gynecologic oncology [...] pT2b pN0. ? She was discharged to [facility]. Since the time of surgery, she had been having abdominal pain that is sharp and low in abdomen. It crescendos and is partially relieved with a BM. Returns shortly thereafter. Stools were loose and she had been having intermittent nausea with poor appetite. Was transferred to [facility] 05/09/2015 however for low Hgb of 6.1 g/dL. Received transfusion and admitted to [facility]. ? She received a blood transfusion. She was discharged back to the nursing facility and subsequent discharge home. She had been doing home physical therapy. She was making improvements. Initially seen here in plan was for adjuvant chemotherapy once the acute issues were resolved. ? She was admitted to [facility] with hypotension and acute kidney injury on [...] Immunostains were positive for HMB-45, SOX-10 and [place]-1. CD3, CD20, CD45, CD138, inhibin, [place] 8 and S100 were negative. No BRAF mutation. ? Patient was admitted to [facility] for fever and malaise. She was found to have Escherichia coli sepsis. She was treated with broad-spectrum antibiotics. Urine appeared to be the source. She also received a 2 unit red blood cell transfusion. She underwent colonoscopy where in she was found to have extensive involvement of the rectum and was thereafter transferred to [facility]. On initial exam was determined that the [...] She was seen by general surgery at [facility]. Hernia repair was not advised due to [...] cat scratch looks like recurrent cellulitis. NEUROLOGIC: alignment mechanic II-XII are grossly intact. ? ASSESSMENT/PLAN: (C52) [...] CMP monthly with treatment -Follow up with route delivery manager as scheduled. -Repeat CT chest abdomen pelvis [...] Isidro Estevez DO Referring Provider: ISIDRO ESTEVEZ [[id number]] Allergies As of Date: 03/25/2018 Noted Allergy [...] 20 tabletRfl: 0 CT ABD/PEL W IVCON [[id number]] Order #: [id number] FUTURE CT CHEST W IVCON [[id number]] Order #: [id number] FUTURE iv contrast (will be provided with [...] FOR* Visit Notes: >> Shelia Sanchez LPN WedMar 25, 2018 10:06 AM Status: Signed Est patient. Discuss recent labs, treatment Wednesday. C/O increased leg edema in the last month. Shelia Sanchez LPN Encounter Status:Closed by ISIDRO ESTEVEZ DO on 03/25/18 [place] ABS GR + CBC Collected: 03/25/2018 Status: F Source: [facility] 9:54 AM [facility] REPOSITORY TYPE CODE TESTS RESULT OUT OF REFERENCE UNITS RANGE LAB WWBC 3.70-11.00 k/uL [place] WBC 6.34 LAB WRBC 3.90-5.20 m/uL [place] RBC 4.31 LAB WHGB 11.5-15.5 g/dL [place] Hemoglobin 12.6 LAB WHCT 36.0-46.0 % [place] Hematocrit 40.9 LAB WMCV 80.0-100.0 fL [place] MCV 94.9 LAB WMCH 26.0-34.0 pg [place] MCH 29.2 LAB WMCHC 30.5-36.0 g/dL [place] MCHC 30.8 LAB WRDW 11.5-15.0 % [place] RDW 14.7 LAB WPLT 150-400 k/uL [place] Platelet Cnt 167 LAB WMPV 9.0-12.7 fL [place] MPV 10.5 Result Comment: Test performed at: [facility] [place], [address] [place] [address]. LAB ABGRAN 1.45-7.50 k/uL Absol Gran 4.99 Count COMP METABOLIC PANEL Collected: 03/25/2018 Status: F Source: [facility] 9:54 AM [facility] REPOSITORY TYPE CODE TESTS [...] GFR. TSH Collected: 03/25/2018 Status: F Source: [facility] 9:54 AM [facility] REPOSITORY TYPE CODE TESTS RESULT OUT OF RANGE REFERENCE UNITS LAB TSH 0.400-5.500 uU/mL TSH 3.130 Performed By: #### TSH #### [facility] [address], [place] [address] PROGRESS Observed: 03/17/2018 Status: COMPLETED Source: [facility] [facility] 2:34 PM [facility] REPOSITORY HNO ID: [id number] Author: Lena Way (Sw) Service: (none) Author Type: Investigative Writer Type: Progress Notes Filed: 03/17/2018 2:35 PM Note Text: SOCIAL WORK FOLLOW UP NOTE: [facility] Date of service: March 17, 2018 Kanu A Aj is being seen for a follow up social work visit. Today's visit includes: patient TOPICS ADDRESSED: Finances; ROXIE obtained patient signature and needed information. ROXIE faxed to [facility]. PLAN: Assist with financial support applications and Continue follow up as needed F/U APPOINTMENT: ADDI Mejia CNSW Observed: 03/17/2018 Status: COMPLETED Source: [facility] 12:00 AM [facility] REPOSITORY Social Work (HEMAWS) JEAN MARIEKANU Jenkins ([id number]) 1945 F Date Time Provider Department 03/17/[address]) [facility] During your visit today, we recorded the following information about you: ADDI Jang 03/17/2018 2:35 PM Signed SOCIAL WORK FOLLOW UP NOTE: [facility] Date of service: March 17, 2018 Kanu Aj is being seen for a follow up social work visit. Today's visit includes: patient TOPICS ADDRESSED: Finances; ROXIE obtained patient signature and needed information. ROXIE faxed to [facility]. PLAN: Assist with financial support applications and Continue follow up as needed F/U APPOINTMENT: ADDI Mejia Allergies As of Date: 03/17/2018 Noted Allergy Reaction ASA (ASPIRIN) 05/09/2015 5 - Intolerance Comments: nose bleeds CLINDAMYCIN 05/09/2015 14 - Other: See Comments Comments: ricardo, talking funny DEMEROL (MEPERIDINE (PF)) 05/09/2015 8 [...] 03/17/18 PROGRESS Observed: 03/03/2018 Status: COMPLETED Source: [facility] 10:38 AM [facility] REPOSITORY HNO ID: [id number] Author: Lena Escalante) Nawaf Service: (none) Author Type: Investigative Writer Type: Progress Notes Filed: 03/03/2018 10:40 AM Note Text: Social Work Problem Referral Note INFORMATION/REFERRAL : Kanu Aj 72 year old female was referred to [facility] for the following reason(s): financial assistance - meals, parking, etc. PERSONS INTERVIEWED: patient and [employer] veterans contact representative INTERVENTION: Phone Contact Affect/Mood: The patient is noted as appropriate IDENTIFIED PROBLEMS/NEEDS: Financial Intervention/Referral to be provided:Arrangements made for continuity of care IMPRESSION/PLAN: ROXIE received fax from [employer] regarding renewal for Opdivo. ROXIE called BMS [...] Jang CNSW Observed: 03/03/2018 Status: COMPLETED Source: [facility] 12:00 AM [facility] REPOSITORY Social Work (CRUZ) KANU AJ ([id number]) 1945 F Date Time Provider Department 03/03/[address]) [facility] During your visit today, we recorded the following information about you: ADDI Jang 03/03/2018 10:40 AM Signed Social Work Problem Referral Note INFORMATION/REFERRAL : Kanu Aj 72 year old female was referred to [facility] for the following reason(s): financial assistance - meals, parking, etc. PERSONS INTERVIEWED: patient and [employer] veterans contact representative INTERVENTION: Phone Contact Affect/Mood: The patient is noted as appropriate IDENTIFIED PROBLEMS/NEEDS: Financial Intervention/Referral to be provided:Arrangements made for continuity of care IMPRESSION/PLAN: ROXIE received fax from [employer] regarding renewal for Opdivo. SW called [employer] to clarify if patient needs to spend at least 3% of her income on medication costs before being eligible for medication since Opdivo isn't covered under part D. SW was informed this is not the case for Part B drugs and that patient can turn in her application at any time and they will review it in April. 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 3) metastatic vaginal melanoma ? HPI: The patient is a 72 yo female with a PMH significant for DM2, asthma, VTE, and possible mild CKD as well has hysterectomy ~31 yrs ago who presented to [facility] ED 07/2013?with c/o dyspnea. CT chest significant for?large b/l PE. One was a saddle embolus draped across the bifurcation of the main pulmonary artery and extending into both the right and left pulmonary artery segments per the CT report. Patient was transferred to [facility]. Not clear if she underwent [...] in abdomen. ? Patient was admitted to [facility] 04/19/2015 for acute left LE small DVT?and possible cellulitis of the same leg. She was treated with vancomycin and anticoagulated with Lovenox and transferred to [facility] ([facility]) under the care of a gynecologic oncology [...] pT2b pN0. ? She was discharged to [facility]. Since the time of surgery, she had been having abdominal pain that is sharp and low in abdomen. It crescendos and is partially relieved with a BM. Returns shortly thereafter. Stools were loose and she had been having intermittent nausea with poor appetite. Was transferred to [facility] 05/09/2015 however for low Hgb of 6.1 g/dL. Received transfusion and admitted to [facility]. ? She received a blood transfusion. She was discharged back to the nursing facility and subsequent discharge home. She had been doing home physical therapy. She was making improvements. Initially seen here in plan was for adjuvant chemotherapy once the acute issues were resolved. ? She was admitted to [facility] with hypotension and acute kidney injury on [...] Immunostains were positive for HMB-45, SOX-10 and [place]-1. CD3, CD20, CD45, CD138, inhibin, [place] 8 and S100 were negative. No BRAF mutation. ? Patient was admitted to [facility] for fever and malaise. She was found to have Escherichia coli sepsis. She was treated with broad-spectrum antibiotics. Urine appeared to be the source. She also received a 2 unit red blood cell transfusion. She underwent colonoscopy where in she was found to have extensive involvement of the rectum and was thereafter transferred to [facility]. On initial exam was determined that the [...] the left leg versus stasis dermatitis. NEUROLOGIC: alignment mechanic II-XII are grossly intact. ? LABS: Component Latest Ref Rng AND Units 02/25/2018 WBC, [place] 3.70 - 11.00 k/uL 6.49 RBC, [place] 3.90 - 5.20 m/uL 4.27 Hemoglobin, [place] 11.5 - 15.5 g/dL 12.6 Hematocrit, [place] 36.0 - 46.0 % 40.2 MCV, [place] 80.0 - 100.0 fL 94.1 MCH, [place] 26.0 - 34.0 pg 29.5 MCHC, [place] 30.5 - 36.0 g/dL 31.3 RDW, [place] 11.5 - 15.0 % 13.8 Platelet Cnt, [place] 150 - 400 k/uL 183 MPV, [place] [...] CMP monthly with treatment -Follow up with route delivery manager as scheduled. -Repeat CT chest abdomen pelvis [...] Daigle CNOVSP Observed: 02/25/2018 Status: COMPLETED Source: [facility] 11:40 AM [facility] REPOSITORY Visit (SP) Office (CRUZ) KANU AJ ([id number]) 1945 F Date Time Provider Department 02/25/18 [...] hysterectomy ~31 yrs ago who presented to [facility] ED 07/2013?with c/o dyspnea. CT chest significant for?large b/l PE. One was a saddle embolus draped across the bifurcation of the main pulmonary artery and extending into both the right and left pulmonary artery segments per the CT report. Patient was transferred to [facility]. Not clear if she underwent [...] in abdomen. ? Patient was admitted to [facility] 04/19/2015 for acute left LE small DVT?and possible cellulitis of the same leg. She was treated with vancomycin and anticoagulated with Lovenox and transferred to [facility] ([facility]) under the care of a gynecologic oncology surgeon, Dr. Soyn Monteiro. ? Underwent surgery 05/03/2015. The final [...] pT2b pN0. ? She was discharged to [facility]. Since the time of surgery, she had been having abdominal pain that is sharp and low in abdomen. It crescendos and is partially relieved with a BM. Returns shortly thereafter. Stools were loose and she had been having intermittent nausea with poor appetite. Was transferred to [facility] 05/09/2015 however for low Hgb of 6.1 g/dL. Received transfusion and admitted to [facility]. ? She received a blood transfusion. She was discharged back to the nursing facility and subsequent discharge home. She had been doing home physical therapy. She was making improvements. Initially seen here in plan was for adjuvant chemotherapy once the acute issues were resolved. ? She was admitted to [facility] with hypotension and acute kidney injury on [...] Immunostains were positive for HMB-45, SOX-10 and [place]-1. CD3, CD20, CD45, CD138, inhibin, [place] 8 and S100 were negative. No BRAF mutation. ? Patient was admitted to [facility] for fever and malaise. She was found to have Escherichia coli sepsis. She was treated with broad-spectrum antibiotics. Urine appeared to be the source. She also received a 2 unit red blood cell transfusion. She underwent colonoscopy where in she was found to have extensive involvement of the rectum and was thereafter transferred to [facility]. On initial exam was determined that the [...] the left leg versus stasis dermatitis. NEUROLOGIC: alignment mechanic II-XII are grossly intact. ? LABS: Component Latest Ref Rng AND Units 02/25/2018 WBC, [place] 3.70 - 11.00 k/uL 6.49 RBC, [place] 3.90 - 5.20 m/uL 4.27 Hemoglobin, [place] 11.5 - 15.5 g/dL 12.6 Hematocrit, [place] 36.0 - 46.0 % 40.2 MCV, [place] 80.0 - 100.0 fL 94.1 MCH, [place] 26.0 - 34.0 pg 29.5 MCHC, [place] 30.5 - 36.0 g/dL 31.3 RDW, [place] 11.5 - 15.0 % 13.8 Platelet Cnt, [place] 150 - 400 k/uL 183 MPV, [place] 9.0 - 12.7 fL 10.1 Absol Gran [...] CMP monthly with treatment -Follow up with route delivery manager as scheduled. -Repeat CT chest abdomen pelvis [...] Dr. Chente Daigle Referring Provider: ISIDRO ESTEVEZ [[id number]] Allergies As of Date: 02/25/2018 Noted Allergy [...] of Service: EST PATIENT VISIT LEVEL 3 [[id number]] Disposition: Return in about 4 weeks (around [...] Status:Closed by LILIYA MAGANA MD on 02/26/18 [place] ABS GR + CBC Collected: 02/25/2018 Status: F Source: [facility] [facility] 10:52 AM [facility] REPOSITORY TYPE CODE TESTS RESULT OUT OF REFERENCE UNITS RANGE LAB WWBC 3.70-11.00 k/uL [place] WBC 6.49 LAB WRBC 3.90-5.20 m/uL [place] RBC 4.27 LAB WHGB 11.5-15.5 g/dL [place] Hemoglobin 12.6 LAB WHCT 36.0-46.0 % [place] Hematocrit 40.2 LAB WMCV 80.0-100.0 fL [place] MCV 94.1 LAB WMCH 26.0-34.0 pg [place] MCH 29.5 LAB WMCHC 30.5-36.0 g/dL [place] MCHC 31.3 LAB WRDW 11.5-15.0 % [place] RDW 13.8 LAB WPLT 150-400 k/uL [place] Platelet Cnt 183 LAB WMPV 9.0-12.7 fL [place] MPV 10.1 Result Comment: Test performed at: [facility], [address] [place] [address] [address] [place] [address]. LAB ABGRAN 1.45-7.50 k/uL Absol Gran 5.21 Count COMP METABOLIC PANEL Collected: 02/25/2018 Status: F Source: [facility] 10:52 AM [facility] REPOSITORY TYPE CODE TESTS [...] GFR. 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 3) metastatic vaginal melanoma ? HPI: The patient is a 72 yo female with a PMH significant for DM2, asthma, VTE, and possible mild CKD as well has hysterectomy ~31 yrs ago who presented to [facility] ED 07/2013 with c/o dyspnea. CT chest significant for large b/l PE. One was a saddle embolus draped across the bifurcation of the main pulmonary artery and extending into both the right and left pulmonary artery segments per the CT report. Patient was transferred to [facility]. Not clear if she underwent [...] in abdomen. ? Patient was admitted to [facility] 04/19/2015 for acute left LE small DVT and possible cellulitis of the same leg. She was treated with vancomycin and anticoagulated with Lovenox and transferred to [facility] ([facility]) under the care of a gynecologic oncology [...] pT2b pN0. ? She was discharged to [facility]. Since the time of surgery, she had been having abdominal pain that is sharp and low in abdomen. It crescendos and is partially relieved with a BM. Returns shortly thereafter. Stools were loose and she had been having intermittent nausea with poor appetite. Was transferred to [facility] 05/09/2015 however for low Hgb of 6.1 g/dL. Received transfusion and admitted to [facility]. ? She received a blood transfusion. She was discharged back to the nursing facility and subsequent discharge home. She had been doing home physical therapy. She was making improvements. Initially seen here in plan was for adjuvant chemotherapy once the acute issues were resolved. ? She was admitted to [facility] with hypotension and acute kidney injury on [...] Immunostains were positive for HMB-45, SOX-10 and [place]-1. CD3, CD20, CD45, CD138, inhibin, [place] 8 and S100 were negative. No BRAF mutation. ? Patient was admitted to [facility] for fever and malaise. She was found to have Escherichia coli sepsis. She was treated with broad-spectrum antibiotics. Urine appeared to be the source. She also received a 2 unit red blood cell transfusion. She underwent colonoscopy where in she was found to have extensive involvement of the rectum and was thereafter transferred to [facility]. On initial exam was determined that the [...] bilaterally. Another flare cellulitis left leg. NEUROLOGIC: alignment mechanic II-XII are grossly intact. ? ASSESSMENT/PLAN: (C52) [...] CMP monthly with treatment -Follow up with route delivery manager as scheduled. -Repeat CT chest abdomen pelvis [...] DO CNOVSP Observed: 01/28/2018 Status: COMPLETED Source: [facility] 10:20 AM [facility] REPOSITORY Visit (SP) Office (CRUZ) KANU AJ ([id number]) 1945 F Date Time Provider Department 01/28/18 [...] hysterectomy ~31 yrs ago who presented to [facility] ED 07/2013 with c/o dyspnea. CT chest significant for large b/l PE. One was a saddle embolus draped across the bifurcation of the main pulmonary artery and extending into both the right and left pulmonary artery segments per the CT report. Patient was transferred to [facility]. Not clear if she underwent [...] in abdomen. ? Patient was admitted to [facility] 04/19/2015 for acute left LE small DVT and possible cellulitis of the same leg. She was treated with vancomycin and anticoagulated with Lovenox and transferred to [facility] ([facility]) under the care of a gynecologic oncology surgeon, Dr. Sony oMnteiro. ? Underwent surgery 05/03/2015. The final pathology [...] pT2b pN0. ? She was discharged to [facility]. Since the time of surgery, she had been having abdominal pain that is sharp and low in abdomen. It crescendos and is partially relieved with a BM. Returns shortly thereafter. Stools were loose and she had been having intermittent nausea with poor appetite. Was transferred to [facility] 05/09/2015 however for low Hgb of 6.1 g/dL. Received transfusion and admitted to [facility]. ? She received a blood transfusion. She was discharged back to the nursing facility and subsequent discharge home. She had been doing home physical therapy. She was making improvements. Initially seen here in plan was for adjuvant chemotherapy once the acute issues were resolved. ? She was admitted to [facility] with hypotension and acute kidney injury on [...] Immunostains were positive for HMB-45, SOX-10 and [place]-1. CD3, CD20, CD45, CD138, inhibin, [place] 8 and S100 were negative. No BRAF mutation. ? Patient was admitted to [facility] for fever and malaise. She was found to have Escherichia coli sepsis. She was treated with broad-spectrum antibiotics. Urine appeared to be the source. She also received a 2 unit red blood cell transfusion. She underwent colonoscopy where in she was found to have extensive involvement of the rectum and was thereafter transferred to [facility]. On initial exam was determined that the [...] bilaterally. Another flare cellulitis left leg. NEUROLOGIC: alignment mechanic II-XII are grossly intact. ? ASSESSMENT/PLAN: (C52) [...] CMP monthly with treatment -Follow up with route delivery manager as scheduled. -Repeat CT chest abdomen pelvis [...] Isidro Estevez DO Referring Provider: ISIDRO ESTEVEZ [[id number]] Allergies As of Date: 01/28/2018 Noted Allergy [...] METABOLIC PANEL Collected: 01/28/2018 Status: F Source: [facility] 10:17 AM [facility] REPOSITORY TYPE CODE TESTS [...] mg/dL Glucose High 138 Result Comment: The [place] [employer] (ADA) provides guidance for cutoff [...] Standards of Medical Care in Diabetes 2016, [place] [employer]. Diabetes Care. 2016.39(Suppl 1). LAB [...] actual GFR. Performed By: #### CMP #### [facility] [address] [place], [place] [address] [place] ABS GR + CBC Collected: 01/28/2018 Status: F Source: [place] 9:57 AM [facility] REPOSITORY TYPE CODE TESTS RESULT OUT OF REFERENCE UNITS RANGE LAB WWBC 3.70-11.00 k/uL [place] WBC 4.87 LAB WRBC 3.90-5.20 m/uL [place] RBC 4.19 LAB WHGB 11.5-15.5 g/dL [place] Hemoglobin 12.5 LAB WHCT 36.0-46.0 % [place] Hematocrit 39.6 LAB WMCV 80.0-100.0 fL [place] MCV 94.5 LAB WMCH 26.0-34.0 pg [place] MCH 29.8 LAB WMCHC 30.5-36.0 g/dL [place] MCHC 31.6 LAB WRDW 11.5-15.0 % [place] RDW 13.5 LAB WPLT 150-400 k/uL Low [place] Platelet Cnt 144 LAB WMPV 9.0-12.7 fL [place] MPV 9.5 Result Comment: Test performed at: [facility], [address] [place] [address]. LAB ABGRAN 1.45-7.50 k/uL Absol Gran 3.23 Count PROGRESS Observed: 01/06/2018 Status: COMPLETED Source: [place] 11:15 AM [facility] REPOSITORY HNO ID: [id number] Author: Manuel Still Service: (none) Author Type: Physician Type: Progress [...] others. I have seen and examined Kanu Aj. I have discussed the case and the management of this patient's care with the Medical Records Technician, if applicable. I also have reviewed and agree with the assessment and plan as stated above and agree with all of its relevant components. Manuel Still MD PROGRESS Observed: 01/04/2018 Status: COMPLETED Source: [place] 6:05 PM [facility] REPOSITORY HNO ID: [id number] Author: Leila Merino Service: (none) Author Type: [...] as melanoma. The patient was transferred to [facility]. The patient was offered pelvic exenteration, which she declined. A loop colostomy was performed, I understand by Dr. Reji Sunshine. She has not developed a parastomal hernia. She was referred to Dr. Cabrera at [facility] who recommended against parastomal hernia repair and [...] entered by the nurse and reviewed by me Nursing Notes: Diana Devine LPN 01/04/2018 3:49 [...] MD CNOV Observed: 01/04/2018 Status: COMPLETED Source: [place] 3:20 PM [facility] REPOSITORY Office Visit (GENSWS) JEAN MARIEKANU ([id number]) 1945 F Date Time Provider Department 01/04/18 3:20 PM LEILA MERINO During your visit today, we recorded the following information about you: Weight 94.3 kg Diana Devine FIELD ADMINISTRATIVE ASSISTANT 01/04/2018 3:49 PM Signed REVIEW OF SYSTEMS: [...] 6:30 PM Signed HISTORY AND PHYSICAL Kanu Aj 1945 REFERRING [...] as melanoma. The patient was transferred to [facility]. The patient was offered pelvic exenteration, which she declined. A loop colostomy was performed, I understand by Dr. Reji Sunshine. She has not developed a parastomal hernia. She was referred to Dr. Cabrera at [facility] who recommended against parastomal hernia repair and [...] entered by the nurse and reviewed by mn Nursing Notes: Diana Devine SHARIF 01/04/2018 3:49 PM Signed REVIEW OF [...] Leila Merino MD Referring Provider: ISIDRO ESTEVEZ [[id number]] Allergies As of Date: 01/04/2018 Noted Allergy Reaction ASA (ASPIRIN) 05/09/2015 5 - Intolerance Comments: nose bleeds CLINDAMYCIN 05/09/2015 14 - Other: See Comments Comments: denny silvaEROL (MEPERIDINE (PF)) 05/09/2015 8 - GI Upset IODINE 11/23/2016 9 - Itching MORPHINE 05/09/2015 8 - GI Upset VALIUM (DIAZEPAM) 05/09/2015 8 - GI Upset Date Reviewed: 01/04/2018 Reviewed by: Leila Merino - Fully Assessed Reason for Visit: ostomy options [Other] Primary Visit Diagnosis:Parastomal hernia without obstruction or gangrene [K43.5] Order(s):ABDMNL DRSSNG BLAKE/BINDER [[id number]] Order #: [id number] Prescriptions as of 01/04/2018 Sig: OXYCODONE 5 [...] + CBC Collected: 01/03/2018 Status: F Source: [place] 11:17 AM [facility] REPOSITORY TYPE CODE TESTS RESULT OUT OF REFERENCE UNITS RANGE LAB WWBC 3.70-11.00 k/uL [place] WBC 4.95 LAB WRBC 3.90-5.20 m/uL [place] RBC 4.08 LAB WHGB 11.5-15.5 g/dL [place] Hemoglobin 12.3 LAB WHCT 36.0-46.0 % [place] Hematocrit 39.4 LAB WMCV 80.0-100.0 fL [place] MCV 96.6 LAB WMCH 26.0-34.0 pg [place] MCH 30.1 LAB WMCHC 30.5-36.0 g/dL [place] MCHC 31.2 LAB WRDW 11.5-15.0 % [place] RDW 13.6 LAB WPLT 150-400 k/uL Low [place] Platelet Cnt 145 LAB WMPV 9.0-12.7 fL [place] MPV 9.3 Result Comment: Test performed at: [facility], [address] [place] [address]. LAB ABGRAN 1.45-7.50 k/uL Absol Gran 3.82 Count COMP METABOLIC PANEL Collected: 01/03/2018 Status: F Source: [place] 11:17 AM [facility] REPOSITORY TYPE CODE TESTS RESULT OUT OF REFERENCE UNITS RANGE LAB TP 6.3-8.0 g/dL Protein, Total 6.9 LAB ALB 3.9-4.9 g/dL Albumin 4.0 LAB CA 8.5-10.2 mg/dL Calcium, Total 9.0 LAB TBIL 0.2-1.3 mg/dL Bilirubin, Total 0.7 LAB ALKP 32-117 U/L Alkaline Phosphatase 92 LAB AST 13-35 U/L AST 17 LAB GLU 74-99 mg/dL Glucose High 135 Result Comment: The [place] Diabetes Association (ADA) provides guidance for cutoff [...] Standards of Medical Care in Diabetes 2016, [place] [employer]. Diabetes Care. 2016.39(Suppl 1). LAB [...] actual GFR. Performed By: #### CMP #### [facility] [address] [place] [address] PROGRESS Observed: 12/31/2017 Status: COMPLETED Source: [place] 10:18 AM [facility] REPOSITORY HNO ID: [id number] Author: Isidro Estevez Service: (none) Author Type: Physician Type: Progress Notes Filed: 12/31/2017 10:43 AM Note Text: Diagnoses: 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 3) metastatic vaginal melanoma ? HPI: The patient is a 72 yo female with a PMH significant for DM2, asthma, VTE, and possible mild CKD as well has hysterectomy ~31 yrs ago who presented to [facility] ED 07/2013 with c/o dyspnea. CT chest significant for large b/l PE. One was a saddle embolus draped across the bifurcation of the main pulmonary artery and extending into both the right and left pulmonary artery segments per the CT report. Patient was transferred to [facility]. Not clear if she underwent [...] in abdomen. ? Patient was admitted to [facility] 04/19/2015 for acute left LE small DVT and possible cellulitis of the same leg. She was treated with vancomycin and anticoagulated with Lovenox and transferred to [facility] ([facility]) under the care of a gynecologic oncology [...] pT2b pN0. ? She was discharged to [facility]. Since the time of surgery, she had been having abdominal pain that is sharp and low in abdomen. It crescendos and is partially relieved with a BM. Returns shortly thereafter. Stools were loose and she had been having intermittent nausea with poor appetite. Was transferred to [facility] 05/09/2015 however for low Hgb of 6.1 g/dL. Received transfusion and admitted to [facility]. ? She received a blood transfusion. She was discharged back to the nursing facility and subsequent discharge home. She had been doing home physical therapy. She was making improvements. Initially seen here in plan was for adjuvant chemotherapy once the acute issues were resolved. ? She was admitted to [facility] with hypotension and acute kidney injury on [...] Immunostains were positive for HMB-45, SOX-10 and [place]-1. CD3, CD20, CD45, CD138, inhibin, [place] 8 and S100 were negative. No BRAF mutation. ? Patient was admitted to [facility] for fever and malaise. She was found to have Escherichia coli sepsis. She was treated with broad-spectrum antibiotics. Urine appeared to be the source. She also received a 2 unit red blood cell transfusion. She underwent colonoscopy where in she was found to have extensive involvement of the rectum and was thereafter transferred to [facility]. On initial exam was determined that the [...] She was seen by general surgery at [facility]. Hernia repair was not advised due to [...] bilaterally. Another flare cellulitis left leg. NEUROLOGIC: alignment mechanic II-XII are grossly intact. ? ASSESSMENT/PLAN: (C52) [...] CMP monthly with treatment -Follow up with route delivery manager as scheduled. -Repeat CT chest abdomen pelvis for restaging in 2 months. -She would like a referral to Dr. Headley to see whether he would be willing to do ostomy reversal for her locally. ? 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 ? 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 Treatment Wednesday. Shelia Estevez DO 12/31/2017 10:43 AM Signed Diagnoses: 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 3) metastatic vaginal melanoma ? HPI: The patient is a 72 yo female with a PMH significant for DM2, asthma, VTE, and possible mild CKD as well has hysterectomy ~31 yrs ago who presented to [facility] ED 07/2013 with c/o dyspnea. CT chest significant for large b/l PE. One was a saddle embolus draped across the bifurcation of the main pulmonary artery and extending into both the right and left pulmonary artery segments per the CT report. Patient was transferred to [facility]. Not clear if she underwent [...] in abdomen. ? Patient was admitted to [facility] 04/19/2015 for acute left LE small DVT and possible cellulitis of the same leg. She was treated with vancomycin and anticoagulated with Lovenox and transferred to [facility] ([facility]) under the care of a gynecologic oncology [...] pT2b pN0. ? She was discharged to [facility]. Since the time of surgery, she had been having abdominal pain that is sharp and low in abdomen. It crescendos and is partially relieved with a BM. Returns shortly thereafter. Stools were loose and she had been having intermittent nausea with poor appetite. Was transferred to [facility] 05/09/2015 however for low Hgb of 6.1 g/dL. Received transfusion and admitted to [facility]. ? She received a blood transfusion. She was discharged back to the nursing facility and subsequent discharge home. She had been doing home physical therapy. She was making improvements. Initially seen here in plan was for adjuvant chemotherapy once the acute issues were resolved. ? She was admitted to [facility] with hypotension and acute kidney injury on [...] Immunostains were positive for HMB-45, SOX-10 and [place]-1. CD3, CD20, CD45, CD138, inhibin, [place] 8 and S100 were negative. No BRAF mutation. ? Patient was admitted to [facility] for fever and malaise. She was found to have Escherichia coli sepsis. She was treated with broad-spectrum antibiotics. Urine appeared to be the source. She also received a 2 unit red blood cell transfusion. She underwent colonoscopy where in she was found to have extensive involvement of the rectum and was thereafter transferred to [facility]. On initial exam was determined that the [...] She was seen by general surgery at [facility]. Hernia repair was not advised due to [...] bilaterally. Another flare cellulitis left leg. NEUROLOGIC: alignment mechanic II-XII are grossly intact. ? ASSESSMENT/PLAN: (C52) [...] CMP monthly with treatment -Follow up with route delivery manager as scheduled. -Repeat CT chest abdomen pelvis [...] Isidro Estevez DO Referring Provider: ISIDRO ESTEVEZ [[id number]] Allergies As of Date: 12/31/2017 Noted Allergy [...] Signed Est patient. Treatment Wednesday. Shelia Sanchez FIELD ADMINISTRATIVE ASSISTANT Encounter Status:Closed by ISIDRO ESTEVEZ DO on 12/31/17 COMP METABOLIC PANEL Collected: 12/21/2017 Status: F Source: [place] 11:15 AM [facility] REPOSITORY TYPE [...] mg/dL Glucose High 141 Result Comment: The [place] Diabetes Association (ADA) provides guidance for cutoff [...] Standards of Medical Care in Diabetes 2016, [place] [employer]. Diabetes Care. 2016.39(Suppl 1). LAB [...] actual GFR. Performed By: #### CMP #### [facility] [address] [place], [place] [address] [place] ABS GR + CBC Collected: 12/21/2017 Status: F Source: [place] 11:14 AM [facility] REPOSITORY TYPE CODE TESTS RESULT OUT OF REFERENCE UNITS RANGE LAB WWBC 3.70-11.00 k/uL [place] WBC 5.17 LAB WRBC 3.90-5.20 m/uL [place] RBC 4.11 LAB WHGB 11.5-15.5 g/dL [place] Hemoglobin 12.5 LAB WHCT 36.0-46.0 % [place] Hematocrit 39.7 LAB WMCV 80.0-100.0 fL [place] MCV 96.6 LAB WMCH 26.0-34.0 pg [place] MCH 30.4 LAB WMCHC 30.5-36.0 g/dL [place] MCHC 31.5 LAB WRDW 11.5-15.0 % [place] RDW 13.5 LAB WPLT 150-400 k/uL [place] Platelet Cnt 161 LAB WMPV 9.0-12.7 fL [place] MPV 9.4 Result Comment: Test performed at: [facility], [address] [place] [address]. LAB ABGRAN 1.45-7.50 k/uL Absol Gran 3.59 Count PROGRESS Observed: 12/06/2017 Status: COMPLETED Source: [place] 1:15 PM [facility] REPOSITORY HNO ID: [id number] Author: Cathy Cabrera Service: (none) Author Type: [...] that. PROGRESS Observed: 12/06/2017 Status: COMPLETED Source: [place] 11:16 AM [facility] REPOSITORY HNO ID: [id number] Author: Gin Bolanos Service: (none) Author Type: [...] 06, 2017 TIME: 11:16 AM PAGER/CONTACT #: [id number] CNOV Observed: 12/06/2017 Status: COMPLETED Source: [place] 10:30 AM [facility] REPOSITORY Office Visit (GENN) KANU AJ ([id number]) 1945 F Date Time Provider Department 12/06/17 10:30 AM CATHY CABRERA During your visit today, we recorded the following information about you: Temperature Pulse Blood pressure Weight 98.2 degrees 80/minute 137/59 94 kg Height 1.549 m Mari Myers Ma 12/06/2017 11:02 AM Signed What is the [...] 06, 2017 TIME: 11:16 AM PAGER/CONTACT #: [phone] CATHY CABRERA MD 12/06/2017 1:25 PM Signed [...] - Other: See Comments Comments: jerking, talking funhafsa HOWELL (MEPERIDINE (PF)) 05/09/2015 8 - GI Upset [...] [I89.0] INVALID FOR* Visit Notes: >> Mari Rustbson Surendra [facility] Dec 06, 2017 11:00 AM Status: Signed [...] 12/06/17 PROGRESS Observed: 12/03/2017 Status: COMPLETED Source: [place] 9:06 AM [facility] REPOSITORY [facility] ID: [id number] Author: Isidro Estevez Service: (none) Author Type: Physician Type: Progress Notes Filed: 12/03/2017 9:34 AM Note Text: Diagnoses: 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 3) metastatic vaginal melanoma ? HPI: The patient is a 72 yo female with a PMH significant for DM2, asthma, VTE, and possible mild CKD as well has hysterectomy ~31 yrs ago who presented to [facility] ED 07/2013 with c/o dyspnea. CT chest significant for large b/l PE. One was a saddle embolus draped across the bifurcation of the main pulmonary artery and extending into both the right and left pulmonary artery segments per the CT report. Patient was transferred to [facility]. Not clear if she underwent [...] in abdomen. ? Patient was admitted to [facility] 04/19/2015 for acute left LE small DVT and possible cellulitis of the same leg. She was treated with vancomycin and anticoagulated with Lovenox and transferred to [facility] under the care of a gynecologic oncology [...] pT2b pN0. ? She was discharged to [facility]. Since the time of surgery, she had been having abdominal pain that is sharp and low in abdomen. It crescendos and is partially relieved with a BM. Returns shortly thereafter. Stools were loose and she had been having intermittent nausea with poor appetite. Was transferred to [facility] 05/09/2015 however for low Hgb of 6.1 g/dL. Received transfusion and admitted to [facility]. ? She received a blood transfusion. She was discharged back to the nursing facility and subsequent discharge home. She had been doing home physical therapy. She was making improvements. Initially seen here in plan was for adjuvant chemotherapy once the acute issues were resolved. ? She was admitted to [facility] with hypotension and acute kidney injury on [...] Immunostains were positive for HMB-45, SOX-10 and [place]-1. CD3, CD20, CD45, CD138, inhibin, [place] 8 and S100 were negative. No BRAF mutation. ? Patient was admitted to [facility] for fever and malaise. She was found to have Escherichia coli sepsis. She was treated with broad-spectrum antibiotics. Urine appeared to be the source. She also received a 2 unit red blood cell transfusion. She underwent colonoscopy where in she was found to have extensive involvement of the rectum and was thereafter transferred to [facility]. On initial exam was determined that the [...] readers help. She was told by her route delivery manager her some more retinal/macular edema in the right eye and she scheduled to see a specialist at [facility]. Previously this symptom has responded to intraocular [...] edema bilaterally. No sign of cellulitis. NEUROLOGIC: alignment mechanic II-XII are grossly intact. ? ASSESSMENT/PLAN: (C52) [...] CMP monthly with treatment -Follow up with route delivery manager as scheduled. -Repeat CT chest abdomen pelvis [...] DO CNOVSP Observed: 12/03/2017 Status: COMPLETED Source: [place] 9:00 AM [facility] REPOSITORY Visit (SP) Office (CRUZ) KANU AJ ([id number]) 1945 F Date Time Provider Department 12/03/17 9:00 AM ISIDRO ESTEVEZ During your visit today, we recorded the following information about you: Temperature Pulse Blood pressure Weight 98.1 degrees 78/minute 135/61 93.9 kg Kylah Parker LPN, SHARIF 12/03/2017 9:18 AM Signed Est. Pt. Discuss recent lab results, tx Wednesday SHARIF DunawayDO 12/03/2017 9:34 AM Signed Diagnoses: 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 3) metastatic vaginal melanoma ? HPI: The patient is a 72 yo female with a PMH significant for DM2, asthma, VTE, and possible mild CKD as well has hysterectomy ~31 yrs ago who presented to [facility] ED 07/2013 with c/o dyspnea. CT chest significant for large b/l PE. One was a saddle embolus draped across the bifurcation of the main pulmonary artery and extending into both the right and left pulmonary artery segments per the CT report. Patient was transferred to [facility]. Not clear if she underwent [...] in abdomen. ? Patient was admitted to [facility] 04/19/2015 for acute left LE small DVT and possible cellulitis of the same leg. She was treated with vancomycin and anticoagulated with Lovenox and transferred to [facility] ([facility]) under the care of a gynecologic oncology [...] pT2b pN0. ? She was discharged to [facility]. Since the time of surgery, she had been having abdominal pain that is sharp and low in abdomen. It crescendos and is partially relieved with a BM. Returns shortly thereafter. Stools were loose and she had been having intermittent nausea with poor appetite. Was transferred to [facility] 05/09/2015 however for low Hgb of 6.1 g/dL. Received transfusion and admitted to [facility]. ? She received a blood transfusion. She was discharged back to the nursing facility and subsequent discharge home. She had been doing home physical therapy. She was making improvements. Initially seen here in plan was for adjuvant chemotherapy once the acute issues were resolved. ? She was admitted to [facility] with hypotension and acute kidney injury on [...] Immunostains were positive for HMB-45, SOX-10 and [place]-1. CD3, CD20, CD45, CD138, inhibin, [place] 8 and S100 were negative. No BRAF mutation. ? Patient was admitted to [facility] for fever and malaise. She was found to have Escherichia coli sepsis. She was treated with broad-spectrum antibiotics. Urine appeared to be the source. She also received a 2 unit red blood cell transfusion. She underwent colonoscopy where in she was found to have extensive involvement of the rectum and was thereafter transferred to [facility]. On initial exam was determined that the [...] readers help. She was told by her route delivery manager her some more retinal/macular edema in the right eye and she scheduled to see a specialist at [facility]. Previously this symptom has responded to intraocular [...] edema bilaterally. No sign of cellulitis. NEUROLOGIC: alignment mechanic II-XII are grossly intact. ? ASSESSMENT/PLAN: (C52) [...] CMP monthly with treatment -Follow up with route delivery manager as scheduled. -Repeat CT chest abdomen pelvis [...] Isidro Estevez DO Referring Provider: ISIDRO ESTEVEZ [[id number]] Allergies As of Date: 12/03/2017 Noted Allergy Reaction ASA (ASPIRIN) 05/09/2015 5 - Intolerance Comments: nose bleeds CLINDAMYCIN 05/09/2015 14 - Other: See Comments Comments: jerking, talking funny DEMEROL (MEPERIDINE (PF)) 05/09/2015 8 - GI Upset IODINE 11/23/2016 9 - Itching MORPHINE 05/09/2015 8 - GI Upset VALIUM (DIAZEPAM) 05/09/2015 8 - GI Upset Date Reviewed: 12/03/2017 Reviewed by: Kylah Hernandez (Sharif) SHARIF Parker - Fully Assessed Reason for [...] + CBC Collected: 12/03/2017 Status: F Source: [place] 8:53 AM [facility] REPOSITORY TYPE CODE TESTS RESULT OUT OF REFERENCE UNITS RANGE LAB WWBC 3.70-11.00 k/uL [place] WBC 5.99 LAB WRBC 3.90-5.20 m/uL [place] RBC 4.01 LAB WHGB 11.5-15.5 g/dL [place] Hemoglobin 12.3 LAB WHCT 36.0-46.0 % [place] Hematocrit 39.1 LAB WMCV 80.0-100.0 fL [place] MCV 97.5 LAB WMCH 26.0-34.0 pg [place] MCH 30.7 LAB WMCHC 30.5-36.0 g/dL [place] MCHC 31.5 LAB WRDW 11.5-15.0 % [place] RDW 13.9 LAB WPLT 150-400 k/uL Low [place] Platelet Cnt 138 LAB WMPV 9.0-12.7 fL [place] MPV 9.7 Result Comment: Test performed at: [facility] [place], [address] [place] [address]. LAB ABGRAN 1.45-7.50 k/uL Absol Gran 4.19 Count COMP METABOLIC PANEL Collected: 12/03/2017 Status: F Source: [place] 8:53 AM [facility] REPOSITORY TYPE CODE TESTS RESULT OUT OF REFERENCE UNITS RANGE LAB TP 6.3-8.0 g/dL Protein, Total 6.7 LAB ALB 3.9-4.9 g/dL Albumin 3.9 LAB CA 8.5-10.2 mg/dL Calcium, Total 9.4 LAB TBIL 0.2-1.3 mg/dL Bilirubin, Total 0.9 LAB ALKP 32-117 U/L Alkaline Phosphatase 87 LAB AST 13-35 U/L AST 15 LAB GLU 74-99 mg/dL Glucose High 144 Result Comment: The [place] [employer] (ADA) provides guidance for cutoff [...] Standards of Medical Care in Diabetes 2016, [place] [employer]. Diabetes Care. 2016.39(Suppl 1). LAB [...] actual GFR. Performed By: #### CMP #### [facility] [address] [address] PROGRESS Observed: 11/25/2017 Status: COMPLETED Source: [place] 1:36 PM [facility] REPOSITORY HNO ID: [id number] Author: Lena Way ([place]) Service: (none) Author Type: Investigative Writer Type: Progress Notes Filed: 11/25/2017 1:37 PM Note Text: SOCIAL WORK FOLLOW UP NOTE: [facility] Date of service: November 25, 2017 Kanu Aj is being seen for a follow up social work visit. Today's visit includes: [employer] veterans contact representative TOPICS ADDRESSED: Finances; ROXIE received fax stating patient needs to apply through [employer] for funding before [employer] can assist. ROXIE called [facility] and explained that patient's specific melanoma diagnosis is not covered under the melanoma funds through the [employer]. Patient's application is now being reviewed again with this information by [facility]. PLAN: Continue follow up as needed F/U APPOINTMENT: ADDI Mejia Observed: 11/25/2017 Status: COMPLETED Source: [place] 12:00 AM [facility] REPOSITORY Social Work (HEMAWS) KANU AJ ([id number]) 1945 F Date Time Provider Department 11/25/[address]) CRUZ During your visit today, we recorded the following information about you: ADDI Jang 11/25/2017 1:37 PM Signed SOCIAL WORK FOLLOW UP NOTE: [facility] Date of service: November 25, 2017 Kanu Aj is being seen for a follow up social work visit. Today's visit includes: [employer] veterans contact representative TOPICS ADDRESSED: Finances; SW received fax stating patient needs to apply through [employer] for funding before [facility] can assist. SW called [employer] and explained that patient's specific melanoma diagnosis is not covered under the melanoma funds through the [employer]. Patient's application is now being reviewed again with this information by [employer]. PLAN: Continue follow up as needed F/U APPOINTMENT: PRN ADDI Jang Allergies As of Date: 11/25/2017 Noted Allergy [...] 11/25/17 PROGRESS Observed: 11/23/2017 Status: COMPLETED Source: [place] 11:12 AM [facility] REPOSITORY [facility] ID: [id number] Author: Carlyn Croft Service: (none) Author Type: [...] W IVCON Observed: 11/23/2017 Status: F Source: [place] 10:11 AM [facility] REPOSITORY * * *Final Report* * * DATE OF EXAM: Nov 23 2017 10:11AM [facility] 0530 - CT ABD/PEL W IVCON [...] STABLE SMALL THROMBUS ABOVE THE IVC FILTER Supervisor Sewer Maintenance: DYLLAN Transcribe Date/Time: Nov 23 2017 1:24P Dictated by : CATHY DAWSON MD This examination was interpreted and the report reviewed and electronically signed by: CATHY DAWSON MD on Nov 23 2017 1:38PM EST [id number] CT CHEST W IVCON Observed: 11/23/2017 Status: F Source: [place] 10:11 AM [facility] REPOSITORY * * *Final Report* * * DATE OF EXAM: Nov 23 2017 10:11AM [facility] 0539 - CT CHEST W IVCON [...] most pronounced within the left lower lobe. Supervisor Sewer Maintenance: DYLLAN Transcribe Date/Time: Nov 23 2017 3:43P Dictated by : LAMIN ASIF MD This examination was interpreted and the report reviewed and electronically signed by: LAMIN ASIF MD on Nov 23 2017 3:46PM EST [id number] PROGRESS Observed: 11/23/2017 Status: COMPLETED Source: [place] 8:19 AM [facility] REPOSITORY [facility]NO ID: [id number] Author: Lena Way (Sw) Service: (none) Author Type: Investigative Writer Type: Progress Notes Filed: 11/23/2017 8:20 AM Note Text: SOCIAL WORK FOLLOW UP NOTE: [facility] Date of service: November 23, 2017 Kanu Gregory Aj is being seen for a follow up social work visit. Today's visit includes: patient TOPICS ADDRESSED: Finances; ROXIE faxed application to [facility] and informed patient this has been done. Copy sent to scanning. PLAN: Assist with financial support applications and Continue follow up as needed F/U APPOINTMENT: ADDI Mejia CNSW Observed: 11/23/2017 Status: COMPLETED Source: [place] 12:00 AM [facility] REPOSITORY Social Work (HEMAWS) KANU AJ ([id number]) 1945 F Date Time Provider Department 11/23/[address] (SW) During your visit today, we recorded the following information about you: ADDI Jang 11/23/2017 8:20 AM Signed SOCIAL WORK FOLLOW UP NOTE: [facility] Date of service: November 23, 2017 Kanu Aj is being seen for a follow up social work visit. Today's visit includes: patient TOPICS ADDRESSED: Finances; ROXIE faxed application to [facility] and informed patient this has been done. [...] 11/23/17 PROGRESS Observed: 11/22/2017 Status: COMPLETED Source: [place] 11:36 AM [facility] REPOSITORY [facility] ID: [id number] Author: Lena (Roxie) Nawaf Service: (none) Author Type: Investigative Writer Type: Progress Notes Filed: 11/22/2017 11:37 AM Note Text: SOCIAL WORK FOLLOW UP NOTE: [facility] Date of service: November 22, 2017 Kanu Aj is being seen for a follow up social work visit. Today's visit includes: patient TOPICS ADDRESSED: Finances; ROXIE met with patient to complete application. ROXIE provided to doctor to review/sign. ROXIE will fax to [employer] when returned. PLAN: Assist with financial support applications and Continue follow up as needed F/U APPOINTMENT: PRADDI Ayala ABS GR + CBC Collected: 11/22/2017 Status: F Source: [place] 11:09 AM [facility] REPOSITORY TYPE CODE TESTS RESULT OUT OF REFERENCE UNITS RANGE LAB WWBC 3.70-11.00 k/uL [place] WBC 5.97 LAB WRBC 3.90-5.20 m/uL [place] RBC 3.98 LAB WHGB 11.5-15.5 g/dL [place] Hemoglobin 12.1 LAB WHCT 36.0-46.0 % [place] Hematocrit 38.7 LAB WMCV 80.0-100.0 fL [place] MCV 97.2 LAB WMCH 26.0-34.0 pg [place] MCH 30.4 LAB WMCHC 30.5-36.0 g/dL [place] MCHC 31.3 LAB WRDW 11.5-15.0 % [place] RDW 14.0 LAB WPLT 150-400 k/uL [place] Platelet Cnt 159 LAB WMPV 9.0-12.7 fL [place] MPV 9.9 Result Comment: Test performed at: [facility] [place], [address] [place] [address] Rd[address] [place] [address]. LAB ABGRAN 1.45-7.50 k/uL Absol Gran 4.56 Count COMP METABOLIC PANEL Collected: 11/22/2017 Status: F Source: [place] 11:09 AM [facility] REPOSITORY TYPE CODE TESTS RESULT OUT OF REFERENCE UNITS RANGE LAB TP 6.3-8.0 g/dL Protein, Total 7.0 LAB ALB 3.9-4.9 g/dL Albumin 3.9 LAB CA 8.5-10.2 mg/dL Calcium, Total 9.3 LAB TBIL 0.2-1.3 mg/dL Bilirubin, Total 0.8 LAB ALKP 32-117 U/L Alkaline Phosphatase 84 LAB AST 13-35 U/L AST 20 LAB GLU 74-99 mg/dL Glucose High 127 Result Comment: The [place] Diabetes Association (ADA) provides guidance for cutoff [...] Standards of Medical Care in Diabetes 2016, [place] Diabetes Association. Diabetes Care. 2016.39(Suppl 1). LAB [...] actual GFR. Performed By: #### CMP #### [facility] [address] [place], [place] [address] CNSW Observed: 11/22/2017 Status: COMPLETED Source: [place] 12:00 AM [facility] REPOSITORY Social Work (HEMAWS) KANU AJ ([id number]) 1945 F Date Time Provider Department 11/22/[address]) CRUZ During your visit today, [...] doctor to review/sign. ROXIE will fax to [employer] when returned. PLAN: Assist with financial support [...] 11/22/17 PROGRESS Observed: 11/19/2017 Status: COMPLETED Source: [place] 1:48 PM [facility] REPOSITORY [facility]NO ID: [id number] Author: Lena Way (Sw) Service: (none) Author Type: Investigative Writer Type: Progress Notes Filed: 11/19/2017 1:52 PM Note Text: Social Work Problem Referral Note INFORMATION/REFERRAL : Kanu Gregory jA 72 year old female was referred by financial counselor to [facility] Social Work for the following reason(s): financial assistance - meals, parking, etc. PERSONS INTERVIEWED: patient and financial counselor and financial navigator and pharmacist INTERVENTION: Information AND Referral Service Co-ordination Affect/Mood: The patient is noted as distressed IDENTIFIED PROBLEMS/NEEDS: Financial Intervention/Referral to be provided:Arrangements made for continuity of care Financial: Applications(s) sent to: Other: Application will be sent to [facility] IMPRESSION/PLAN: ROXIE met with patient to discuss patient assistance options for Opdivo. ROXIE worked with Financial Navigator to look into [facility], S, Cancer Care and [employer]. None of these options provided assistance for patient's diagnosis. ROXIE contacted [employer], who stated they do offer a program [...] Mejia CNSW Observed: 11/19/2017 Status: COMPLETED Source: [place] 12:00 AM [facility] REPOSITORY Social Work (CRUZ) KANU AJ ([id number]) 1945 F Date Time Provider Department 11/19/17 [...] to: Other: Application will be sent to [facility] IMPRESSION/PLAN: SW met with patient to discuss patient assistance options for Opdivo. SW worked with Financial Navigator to look into PANF, LLS, Cancer Care and [employer]. None of these options provided assistance for patient's diagnosis. SW contacted [employer], who stated they do offer a program [...] - Other: See Comments Comments: denny silva funhafsa DEMEROL (MEPERIDINE (PF)) 05/09/2015 8 - GI [...] + CBC Collected: 11/08/2017 Status: F Source: [place] 10:45 AM [facility] REPOSITORY TYPE CODE TESTS RESULT OUT OF REFERENCE UNITS RANGE LAB WWBC 3.70-11.00 k/uL [place] WBC 6.24 LAB WRBC 3.90-5.20 m/uL [place] RBC 4.18 LAB WHGB 11.5-15.5 g/dL [place] Hemoglobin 12.5 LAB WHCT 36.0-46.0 % [place] Hematocrit 40.0 LAB WMCV 80.0-100.0 fL [place] MCV 95.7 LAB WMCH 26.0-34.0 pg [place] MCH 29.9 LAB WMCHC 30.5-36.0 g/dL [place] MCHC 31.3 LAB WRDW 11.5-15.0 % [place] RDW 14.1 LAB WPLT 150-400 k/uL Low [place] Platelet Cnt 133 LAB WMPV 9.0-12.7 fL [place] MPV 9.4 Result Comment: Test performed at: [facility] [place], [address] [place] [address]. LAB ABGRAN 1.45-7.50 k/uL Absol Gran 4.87 Count COMP METABOLIC PANEL Collected: 11/08/2017 Status: F Source: [place] 10:45 AM [facility] REPOSITORY TYPE CODE TESTS RESULT OUT OF REFERENCE UNITS RANGE LAB TP 6.3-8.0 g/dL Protein, Total 7.0 LAB ALB 3.9-4.9 g/dL Albumin 4.0 LAB CA 8.5-10.2 mg/dL Calcium, Total 9.2 LAB TBIL 0.2-1.3 mg/dL Bilirubin, Total 0.8 LAB ALKP 32-117 U/L Alkaline Phosphatase 96 LAB AST 13-35 U/L AST 22 LAB GLU 74-99 mg/dL Glucose High 137 Result Comment: The [place] Diabetes Association (ADA) provides guidance for cutoff [...] Standards of Medical Care in Diabetes 2016, [place] Diabetes Association. Diabetes Care. 2016.39(Suppl 1). LAB [...] actual GFR. 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 3) metastatic vaginal melanoma ? HPI: The patient is a 71 yo female with a PMH significant for DM2, asthma, VTE, and possible mild CKD as well has hysterectomy ~31 yrs ago who presented to [facility] ED 07/2013 with c/o dyspnea. CT chest significant for large b/l PE. One was a saddle embolus draped across the bifurcation of the main pulmonary artery and extending into both the right and left pulmonary artery segments per the CT report. Patient was transferred to [facility]. Not clear if she underwent [...] in abdomen. ? Patient was admitted to [facility] 04/19/2015 for acute left LE small DVT and possible cellulitis of the same leg. She was treated with vancomycin and anticoagulated with Lovenox and transferred to [facility]) under the care of a gynecologic oncology [...] pT2b pN0. ? She was discharged to [facility]. Since the time of surgery, she had been having abdominal pain that is sharp and low in abdomen. It crescendos and is partially relieved with a BM. Returns shortly thereafter. Stools were loose and she had been having intermittent nausea with poor appetite. Was transferred to [facility] 05/09/2015 however for low Hgb of 6.1 g/dL. Received transfusion and admitted to [facility]. ? She received a blood transfusion. She was discharged back to the nursing facility and subsequent discharge home. She had been doing home physical therapy. She was making improvements. Initially seen here in plan was for adjuvant chemotherapy once the acute issues were resolved. ? She was admitted to [facility] with hypotension and acute kidney injury on [...] Immunostains were positive for HMB-45, SOX-10 and [place]-1. CD3, CD20, CD45, CD138, inhibin, [place] 8 and S100 were negative. No BRAF mutation. ? Patient was admitted to [facility] for fever and malaise. She was found to have Escherichia coli sepsis. She was treated with broad-spectrum antibiotics. Urine appeared to be the source. She also received a 2 unit red blood cell transfusion. She underwent colonoscopy where in she was found to have extensive involvement of the rectum and was thereafter transferred to [facility]. On initial exam was determined that the [...] edema bilaterally. No sign of cellulitis. NEUROLOGIC: alignment mechanic II-XII are grossly intact. ? LABS: Component Latest Ref Rng AND Units 10/22/2017 WBC, [place] 3.70 - 11.00 k/uL 6.29 RBC, [place] 3.90 - 5.20 m/uL 4.31 Hemoglobin, [place] 11.5 - 15.5 g/dL 12.9 Hematocrit, [place] 36.0 - 46.0 % 40.9 MCV, [place] 80.0 - 100.0 fL 94.9 MCH, [place] 26.0 - 34.0 pg 29.9 MCHC, [place] 30.5 - 36.0 g/dL 31.5 RDW, [place] 11.5 - 15.0 % 13.9 Platelet Cnt, [place] 150 - 400 k/uL 200 MPV, [place] [...] CMP monthly with treatment -Follow up with route delivery manager a schedule. -Repeat CT chest abdomen pelvis [...] Daigle CNOVSP Observed: 10/22/2017 Status: COMPLETED Source: [place] 9:20 AM [facility] REPOSITORY Visit (SP) Office (CRUZ) KANU AJ ([id number]) 1945 F Date Time Provider Department 10/22/17 [...] hysterectomy ~31 yrs ago who presented to [facility] ED 07/2013 with c/o dyspnea. CT chest significant for large b/l PE. One was a saddle embolus draped across the bifurcation of the main pulmonary artery and extending into both the right and left pulmonary artery segments per the CT report. Patient was transferred to [facility]. Not clear if she underwent [...] in abdomen. ? Patient was admitted to [facility] 04/19/2015 for acute left LE small DVT and possible cellulitis of the same leg. She was treated with vancomycin and anticoagulated with Lovenox and transferred to [facility]) under the care of a gynecologic oncology [...] pT2b pN0. ? She was discharged to [facility]. Since the time of surgery, she had been having abdominal pain that is sharp and low in abdomen. It crescendos and is partially relieved with a BM. Returns shortly thereafter. Stools were loose and she had been having intermittent nausea with poor appetite. Was transferred to [facility] 05/09/2015 however for low Hgb of 6.1 g/dL. Received transfusion and admitted to [facility]. ? She received a blood transfusion. She was discharged back to the nursing facility and subsequent discharge home. She had been doing home physical therapy. She was making improvements. Initially seen here in plan was for adjuvant chemotherapy once the acute issues were resolved. ? She was admitted to [facility] with hypotension and acute kidney injury on [...] Immunostains were positive for HMB-45, SOX-10 and [place]-1. CD3, CD20, CD45, CD138, inhibin, [place] 8 and S100 were negative. No BRAF mutation. ? Patient was admitted to [facility] for fever and malaise. She was found to have Escherichia coli sepsis. She was treated with broad-spectrum antibiotics. Urine appeared to be the source. She also received a 2 unit red blood cell transfusion. She underwent colonoscopy where in she was found to have extensive involvement of the rectum and was thereafter transferred to [facility]. On initial exam was determined that the [...] edema bilaterally. No sign of cellulitis. NEUROLOGIC: alignment mechanic II-XII are grossly intact. ? LABS: Component Latest Ref Rng AND Units 10/22/2017 WBC, [place] 3.70 - 11.00 k/uL 6.29 RBC, [place] 3.90 - 5.20 m/uL 4.31 Hemoglobin, [place] 11.5 - 15.5 g/dL 12.9 Hematocrit, [place] 36.0 - 46.0 % 40.9 MCV, [place] 80.0 - 100.0 fL 94.9 MCH, [place] 26.0 - 34.0 pg 29.9 MCHC, [place] 30.5 - 36.0 g/dL 31.5 RDW, [place] [...] CMP monthly with treatment -Follow up with route delivery manager a schedule. -Repeat CT chest abdomen pelvis [...] Dr. Chente Daigle Referring Provider: ISIDRO ESTEVEZ [[id number]] Allergies As of Date: 10/22/2017 Noted Allergy [...] 1 capsuleRfl: 0 CT ABD/PEL W IVCON [[id number]] Order #: [id number] FUTURE CT CHEST W IVCON [[id number]] Order #: [id number] FUTURE [] iv contrast (will be provided [...] of Service: EST PATIENT VISIT LEVEL 4 [[id number]] Disposition: Return in about 6 weeks (around [...] Status:Closed by LILIYA MAGANA MD on 10/25/17 [place] ABS GR + CBC Collected: 10/22/2017 Status: F Source: [place] 9:00 AM [facility] REPOSITORY TYPE CODE TESTS RESULT OUT OF REFERENCE UNITS RANGE LAB WWBC 3.70-11.00 k/uL [place] WBC 6.29 LAB WRBC 3.90-5.20 m/uL [place] RBC 4.31 LAB WHGB 11.5-15.5 g/dL [place] Hemoglobin 12.9 LAB WHCT 36.0-46.0 % [place] Hematocrit 40.9 LAB WMCV 80.0-100.0 fL [place] MCV 94.9 LAB WMCH 26.0-34.0 pg [place] MCH 29.9 LAB WMCHC 30.5-36.0 g/dL [place] MCHC 31.5 LAB WRDW 11.5-15.0 % [place] RDW 13.9 LAB WPLT 150-400 k/uL [place] Platelet Cnt 200 LAB WMPV 9.0-12.7 fL [place] MPV 9.3 Result Comment: Test performed at: [facility] [place], [address] [place], [place] [address]. LAB ABGRAN 1.45-7.50 k/uL Absol Gran 4.36 Count COMP METABOLIC PANEL Collected: 10/22/2017 Status: F Source: [place] 9:00 AM [facility] REPOSITORY TYPE CODE TESTS RESULT OUT OF REFERENCE UNITS RANGE LAB TP 6.3-8.0 g/dL Protein, Total 7.1 LAB ALB 3.9-4.9 g/dL Albumin 4.0 LAB CA 8.5-10.2 mg/dL Calcium, Total 9.5 LAB TBIL 0.2-1.3 mg/dL Bilirubin, Total 0.8 LAB ALKP 32-117 U/L Alkaline Phosphatase 92 LAB AST 13-35 U/L AST 21 LAB GLU 74-99 mg/dL Glucose High 148 Result Comment: The [place] Diabetes Association (ADA) provides guidance for cutoff [...] Standards of Medical Care in Diabetes 2016, [place] Diabetes Association. Diabetes Care. 2016.39(Suppl 1). LAB [...] GFR. Performed By: #### CMP, LD6 #### [facility] [address] [place], [place] [address] LD Collected: 10/22/2017 Status: F Source: [facility] 9:00 AM [facility] REPOSITORY TYPE CODE TESTS RESULT OUT OF RANGE REFERENCE UNITS LAB LD 135-214 U/L High LD 216 Performed By: #### CMP, LD6 #### [facility] [address] [place], [place] [address] 12 LEAD ELECTROCARDIOGRAM Observed: 10/21/2017 Status: F Source: [place] 3:10 PM [facility] REPOS[facility] Cardiovascular Services [address] [place] [address] 12 Lead EKG 10/15/17 1017 MR#: [id number] Acct: [id number] Name: KANU AJ Rep #: [id number] : 1945 72 From: Elio Espinosa MD Attending Dr: Chente Gómez DO Status: DIS IN Ordering Dr: Isidro Patel MD Date: 10/15/17 Location: [facility] Sex: F C Admitted: 10/15/17 Test Reason [...] ECG Confirmed by ELIO ESPINOSA MD ([id number]), slot editor FELY FLORES ([id number]) on 10/21/2017 3:10:03 PM Referred By: NEIL Confirmed By:ELIO ESPINOSA MD 10/21/17 1510 Date Elio Espinosa MD CC: Chente Gómez DO; Chente Daigle MD; Isidro Patel MD Signed BEDSIDE GLUCOSE Collected: 10/18/2017 Status: F Source: [place] 4:11 PM [facility] REPOS[facility] TYPE CODE TESTS RESULT OUT OF REFERENCE UNITS RANGE LAB L501.080 70-110 mg/dL High BEDSIDE GLU 176 Result Comment: MANAGEMENT OF PATIENT CARE PER NURSING PROTOCOL Performed By: #### L501.080 #### [facility] Point of Care [address] [place], [place] [address] BEDSIDE GLUCOSE Collected: 10/18/2017 Status: F Source: [place] 11:21 AM [facility] REPOSITORY TYPE CODE TESTS RESULT OUT OF REFERENCE UNITS RANGE LAB L501.080 70-110 mg/dL High BEDSIDE GLU 139 Result Comment: MANAGEMENT OF PATIENT CARE PER NURSING PROTOCOL Performed By: #### L501.080 #### [facility] Point of Care [address] [place], [place] [address] DISCHARGE SUMMARY Observed: 10/18/2017 Status: F Source: [place] 10:17 AM [facility] Medical Records Department [address] [place] [address] Discharge Summary 10/18/17 1015 MR#: [id number] Acct: [id number] Name: KANU AJ Rep #: [id number] : 1945 72 From: Chente Gómez DO PCP: Chente Daigle MD Status: ADM IN Location: [facility] [id number] Discharge Date and Diagnosis - Problem List [...] Mitchel Diaz MD at 11:17 EDT Tel [phone], Service support , Tibia/Fibula X-Ray 10/15/17 10:22 IMPRESSION: Diffuse soft tissue swelling. Electronically Signed: Mitchel Diaz MD at 11:16 EDT Tel [phone], Service support , Operations: None Procedures: None [...] applicable Code Visit Inpatient E AND M: 06133 Disch Hosp 10/18/17 1017 <Electronically signed by Chente Gómez DO> Date Chente Gómez DO Cosigner Signature (if applicable): Date CC: Chente Gómez DO; Chente Daigle MD; Isidro Estevez DO Signed DISCHARGE INSTRUCTION Observed: 10/18/2017 Status: F Source: [place] 10:15 AM [facility] RE[facility] Medical Records Department [address] [place] [address] Instructions for Home/Discharge Instructions 10/18/17 1013 MR#: [id number] Acct: [id number] Name: KANU AJ Rep #: [id number] : 1945 72 From: Chente Gómez DO PCP: Chente Daigle MD Status: ADM IN - Discharge Diagnoses Current [...] 10/18/2017 Status: F Source: [place] 6:25 AM [facility] REPOSITORY TYPE CODE TESTS RESULT OUT OF REFERENCE UNITS RANGE LAB L501.080 70-110 mg/dL High BEDSIDE GLU 137 Result Comment: MANAGEMENT OF PATIENT CARE PER NURSING PROTOCOL Performed By: #### L501.080 #### [place] [facility] Point of Care [facility] [place] [address] CBC W/DIFF, AUTOMATED Collected: 10/18/2017 Status: F Source: [place] 5:50 AM [facility] REPOSITORY TYPE CODE TESTS RESULT OUT OF [...] Lymph 0.94 Performed By: #### L100.0100 #### [facility] [address] [place], [place], [address] BASIC METABOLIC Collected: 10/18/2017 Status: F Source: [place] PROFILE (BMP) 5:50 AM [facility] REPOSITORY TYPE CODE TESTS RESULT OUT OF [...] GAP 6 Performed By: #### L500.2500 #### [facility] [address] [place], [place], [address] BEDSIDE GLUCOSE Collected: 10/17/2017 Status: F Source: [place] 9:10 PM [facility] REPOSITORY TYPE CODE TESTS RESULT OUT OF REFERENCE UNITS RANGE LAB L501.080 70-110 mg/dL High BEDSIDE GLU 160 Result Comment: MANAGEMENT OF PATIENT CARE PER NURSING PROTOCOL Performed By: #### L501.080 #### [facility] Point of Care [address] [place], [place] [address] BEDSIDE GLUCOSE Collected: 10/17/2017 Status: F Source: [place] 4:06 PM [facility] REPOSITORY TYPE CODE TESTS RESULT OUT OF REFERENCE UNITS RANGE LAB L501.080 70-110 mg/dL High BEDSIDE GLU 171 Result Comment: MANAGEMENT OF PATIENT CARE PER NURSING PROTOCOL Performed By: #### L501.080 #### [facility] Point of Care [address] [place] [address] VANCOMYCIN, TROUGH Collected: 10/17/2017 Status: F Source: [place] LEVEL 11:44 AM [facility] REPOSITORY Order Comment: Time Medication is to [...] (Ventilator/Healtcare Associated) -Sepsis PLEASE CONTACT PHARMACY SERVICES (#[id number]) FOR INTERPRETATION OF RESULTS. Performed By: #### L501.8820 #### [facility] [place], [place], [address] BEDSIDE GLUCOSE Collected: 10/17/2017 Status: F Source: [place] 11:13 AM [facility] REPOSITORY TYPE CODE TESTS RESULT OUT OF REFERENCE UNITS RANGE LAB L501.080 70-110 mg/dL High BEDSIDE GLU 169 Result Comment: MANAGEMENT OF PATIENT CARE PER NURSING PROTOCOL Performed By: #### L501.080 #### [facility] Point of Care [address] [place] [address] BEDSIDE GLUCOSE Collected: 10/17/2017 Status: F Source: [place] 7:12 AM [facility] [place] TYPE CODE TESTS RESULT OUT OF RANGE REFERENCE UNITS LAB L501.080 70-110 mg/dL Normal BEDSIDE GLU 102 Result Comment: MANAGEMENT OF PATIENT CARE PER NURSING PROTOCOL Performed By: #### L501.080 #### [facility] Point of Care [address] [place] [address] BEDSIDE GLUCOSE Collected: 10/16/2017 Status: F Source: [place] 9:42 PM [facility] [place] TYPE CODE TESTS RESULT OUT OF REFERENCE UNITS RANGE LAB L501.080 70-110 mg/dL High BEDSIDE GLU 167 Result Comment: MANAGEMENT OF PATIENT CARE PER NURSING PROTOCOL Performed By: #### L501.080 #### [facility] Point of Care [address] [place], [place] [id number] BEDSIDE GLUCOSE Collected: 10/16/2017 Status: F Source: [place] 4:44 PM [facility] [place] TYPE CODE TESTS RESULT OUT OF REFERENCE UNITS RANGE LAB L501.080 70-110 mg/dL High BEDSIDE GLU 121 Result Comment: MANAGEMENT OF PATIENT CARE PER NURSING PROTOCOL Performed By: #### L501.080 #### [facility] Point of Care [address] [place], [place] [address] BEDSIDE GLUCOSE Collected: 10/16/2017 Status: F Source: [place] 10:56 AM [facility] [place] TYPE CODE TESTS RESULT OUT OF REFERENCE UNITS RANGE LAB L501.080 70-110 mg/dL High BEDSIDE GLU 141 Result Comment: MANAGEMENT OF PATIENT CARE PER NURSING PROTOCOL Performed By: #### L501.080 #### [facility] Point of Care [address] [facility] [place], [place] [address] CBC W/DIFF, AUTOMATED Collected: 10/16/2017 Status: F Source: [place] 7:00 AM [facility] [place] TYPE CODE TESTS RESULT OUT OF [...] Lymph 0.55 Performed By: #### L100.0100 #### [facility] [address] [place], [place], [address] BASIC METABOLIC Collected: 10/16/2017 Status: F Source: [place] PROFILE (BMP) 7:00 AM [facility] [place] TYPE CODE TESTS RESULT OUT OF [...] GAP 7 Performed By: #### L500.2500 #### [facility] [address] [place], [address] BEDSIDE GLUCOSE Collected: 10/16/2017 Status: F Source: [place] 6:57 AM [facility] [place] TYPE CODE TESTS RESULT OUT OF RANGE REFERENCE UNITS LAB L501.080 70-110 mg/dL Normal BEDSIDE GLU 110 Result Comment: MANAGEMENT OF PATIENT CARE PER NURSING PROTOCOL Performed By: #### L501.080 #### [facility] Point of Care [address] [place] [address] BEDSIDE GLUCOSE Collected: 10/15/2017 Status: F Source: [place] 9:24 PM [facility] [place] TYPE CODE TESTS RESULT OUT OF REFERENCE UNITS RANGE LAB L501.080 70-110 mg/dL High BEDSIDE GLU 156 Result Comment: MANAGEMENT OF PATIENT CARE PER NURSING PROTOCOL Performed By: #### L501.080 #### [facility] Point of Care [address] [facility] [place] [address] HISTORY AND PHYSICAL Observed: 10/15/2017 Status: F Source: [place] EXAM 3:11 PM [facility] Medical Records Department [address] [place] [address] History and Physical 10/15/17 1452 MR#: [id number] Acct: [id number] Name: KANU AJ Rep #: [id number] : 1945 72 From: Chente Gómez DO PCP: Chente Daigle MD Status: ADM IN Location: [facility] MS568-3 Problem List (1) Cellulitis of right lower [...] tunnel syndrome. Resection of ovarian cancer at [facility] in 2016, debridement of the abdominal wall with wound closure by Dr. 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 History: ovarian cancer, uterine fibroids Smoking Status: [...] LMWH Code Visit Inpatient E AND M: 50929 Init Hosp L2 10/15/17 1511 <Electronically signed by Chente Gómez DO> Date Chente Gómez DO Cosigner Signature: Date (if applicable) CC: Chente Gómez DO; Chente Daigle MD Signed EMERGENCY DEPARTMENT Observed: 10/15/2017 Status: F Source: [place] SUMMARY 2:34 PM [facility] [place] [facility] Medical Records Department [address] [place] [address] Emergency Department Summary 10/15/17 1012 MR#: [id number] Acct: [id number] Name: KANU AJ Rep #: [id number] : 1945 72 From: Isidro Patel MD [...] Impression: Cellulitis This note was generated with Orlebar Brown dictation software. It may contain incorrect words, [...] your Primary Care Provider. Call [facility] ([phone]) or report to the closest Emergency Room. Call 911 if necessary. 10/15/17 1434 <Electronically signed by Isidro Patel MD> Date Isidro Patel MD Cosigner Signature (If Indicated): Date CC: Chente Daigle MD BEDSIDE GLUCOSE Collected: 10/15/2017 Status: F Source: [place] 2:25 PM [facility] [place] TYPE CODE TESTS RESULT OUT OF REFERENCE UNITS RANGE LAB L501.080 70-110 mg/dL High BEDSIDE GLU 126 Result Comment: MANAGEMENT OF PATIENT CARE PER NURSING PROTOCOL Performed By: #### L501.080 #### [facility] Point of Care [address] [place], [place] [address] Observed: 10/15/2017 Status: F Source: [place] CULTURE, BLOOD (WB) 10:55 AM [facility] [place] BC No growth in 5 days. Performed By: #### M200.1000 #### [facility] [address] [place], [address] URINALYSIS, COMPLETE Collected: 10/15/2017 Status: F Source: [place] 10:50 AM [facility] [place] Order Comment: Order Date: 10/15/17 How was Urine Obtained? CARGO TANK MECHANIC TO SPECIFY TYPE CODE TESTS RESULT OUT [...] URINE SEEN Performed By: #### L400.0001 #### [facility] [address] [place], [place], [address] Observed: 10/15/2017 Status: F Source: [place] CULTURE, URINE 10:50 AM [facility] [place] Order Date: 10/15/17 Urine Culture Culture exhibits no growth. Performed By: #### M100.0650 #### [facility] [address] [place], [address] CBC W/DIFF, AUTOMATED Collected: 10/15/2017 Status: F Source: [place] 10:23 AM [facility] [place] TYPE CODE TESTS RESULT OUT OF [...] Lymph 0.86 Performed By: #### L100.0100 #### [facility] [address] [place], [address] COMPREHENSIVE METABOLIC Collected: 10/15/2017 Status: F Source: [facility] 10:23 AM [facility] [place] TYPE CODE TESTS RESULT OUT OF [...] GAP 7 Performed By: #### L500.4050 #### [facility] [address] [place], [address] LACTIC ACID Collected: 10/15/2017 Status: F Source: [place] 10:23 AM [facility] [place] Order Comment: Yes/No query for Sepsis Lactate Rule Y TYPE CODE TESTS RESULT OUT OF RANGE REFERENCE UNITS LAB L503.6005 0.4-2.0 mmol/L Normal LACTIC ACID 1.5 Performed By: #### L503.6005 #### [facility] [address] [place], [address] PROTHROMBIN TIME W/INR Collected: 10/15/2017 Status: F Source: [place] 10:23 AM [facility] [place] TYPE CODE TESTS RESULT OUT OF RANGE REFERENCE UNITS LAB L300.4150 11.7-14.9 SECONDS High PROTIME 15.7 LAB L300.4200 Normal INR 1.3 Performed By: #### L300.3900, L300.4310 #### [facility] [address] [place], [address] PARTIAL THROMBOPLAST Collected: 10/15/2017 Status: F Source: [place] TIME 10:23 AM [facility] [place] TYPE CODE TESTS RESULT OUT OF RANGE REFERENCE UNITS LAB L300.4310 24.1-36.2 Seconds Normal PTT 33.5 Performed By: #### L300.3900, L300.4310 #### [facility] [address] [place], [address] Observed: 10/15/2017 Status: F Source: [place] CULTURE, BLOOD (WB) 10:23 AM [facility] [place] BC No growth in 5 days. Performed By: #### M200.1000 #### [facility] [address] [facility] [place], [address] TIBIA AND FIBULA Observed: 10/15/2017 Status: F Source: [place] 2 VIEWS 10:18 AM [facility] [place] [facility] Imaging Services [address] [place] [address] Tibia AND Fibula 2 Views MR#: [id number] Acct: [id number] Name: KANU AJ Rep #: [id number] : 1945 F 72 From: Mitchel Diaz MD PCP: Chente Daigle MD Status: REG ER Study: Tibia AND Fibula 2 Views Date of Exam: 10/15/17 Exam# [id number] Ordering Dr: Isidro Patel MD STUDY: X-RAY [...] Mitchel Diaz MD at 11:16 EDT Tel [phone], Service support , CC: Chente Daigle MD; Isidro Patel MD Supervisor Sewer Maintenance: Signed CHEST 1 VIEW Observed: 10/15/2017 Status: F Source: [place] (PORTABLE) 10:11 AM [facility] [place] [facility] Imaging Services [address] [place] [address] Chest 1 View (Portable) MR#: [id number] Acct: [id number] Name: KANU AJ Rep #: [id number] : 1945 F 72 From: Mitchel Diaz MD PCP: Pilo BEAR,Chente Status: REG ER Study: Chest 1 View (Portable) Date of Exam: 10/15/17 Exam# [id number] Ordering Dr: Isidro Patel MD STUDY: X-RAY [...] Mitchel Diaz MD at 11:17 EDT Tel [phone], Service support , CC: Chente Daigle MD; Isidro Patel MD Supervisor Sewer Maintenance: Signed PROGRESS Observed: 09/24/2017 Status: COMPLETED Source: [place] 10:42 AM [facility] REPOSITORY HNO ID: [id number] Author: Nguyen López Service: (none) Author Type: [...] hysterectomy ~31 yrs ago who presented to [facility] ED 07/2013 with c/o dyspnea. CT chest significant for large b/l PE. One was a saddle embolus draped across the bifurcation of the main pulmonary artery and extending into both the right and left pulmonary artery segments per the CT report. Patient was transferred to [facility]. Not clear if she underwent [...] in abdomen. ? Patient was admitted to [facility] 04/19/2015 for acute left LE small DVT and possible cellulitis of the same leg. She was treated with vancomycin and anticoagulated with Lovenox and transferred to [facility] ([facility]) under the care of a gynecologic oncology [...] pT2b pN0. ? She was discharged to [facility]. Since the time of surgery, she had been having abdominal pain that is sharp and low in abdomen. It crescendos and is partially relieved with a BM. Returns shortly thereafter. Stools were loose and she had been having intermittent nausea with poor appetite. Was transferred to [facility] 05/09/2015 however for low Hgb of 6.1 g/dL. Received transfusion and admitted to [facility]. ? She received a blood transfusion. She was discharged back to the nursing facility and subsequent discharge home. She had been doing home physical therapy. She was making improvements. Initially seen here in plan was for adjuvant chemotherapy once the acute issues were resolved. ? She was admitted to [facility] with hypotension and acute kidney injury on [...] Immunostains were positive for HMB-45, SOX-10 and [place]-1. CD3, CD20, CD45, CD138, inhibin, [place] 8 and S100 were negative. No BRAF mutation. ? Patient was admitted to [facility] for fever and malaise. She was found to have Escherichia coli sepsis. She was treated with broad-spectrum antibiotics. Urine appeared to be the source. She also received a 2 unit red blood cell transfusion. She underwent colonoscopy where in she was found to have extensive involvement of the rectum and was thereafter transferred to [facility]. On initial exam was determined that the [...] Rng AND Units 07/30/2017 08/27/2017 09/24/2017 WBC, [place] 3.70 - 11.00 k/uL 5.12 6.59 5.06 RBC, [place] 3.90 - 5.20 m/uL 4.15 4.16 4.30 Hemoglobin, [place] 11.5 - 15.5 g/dL 12.6 12.6 13.2 Hematocrit, [place] 36.0 - 46.0 % 40.4 40.1 41.0 MCV, [place] 80.0 - 100.0 fL 97.3 96.4 95.3 MCH, [place] 26.0 - 34.0 pg 30.4 30.3 30.7 MCHC, [place] 30.5 - 36.0 g/dL 31.2 31.4 32.2 RDW, [place] 11.5 - 15.0 % 14.0 13.9 14.0 Platelet Cnt, [place] 150 - 400 k/uL 164 139 (L) 151 MPV, [place] 9.0 - 12.7 fL 9.8 10.6 9.9 [...] feels vision has improved. - F/u with route delivery manager as scheduled. - Reviewed CBC with pt. [...] APRN.EMMA CNOVSP Observed: 09/24/2017 Status: COMPLETED Source: [place] 10:30 AM [facility] REPOSITORY Visit (SP) Office (CRUZ) KANU AJ ([id number]) 1945 F Date Time Provider Department 09/24/17 10:30 AM NGUYEN LÓPEZ (EMMA) CRUZ During your visit today, we recorded the following information about you: Temperature Pulse Blood pressure Weight 98 degrees 82/minute 137/72 94.8 kg Kylah Parker LPN, SHARIF 09/24/2017 10:42 AM Signed Est pt., discuss [...] hysterectomy ~31 yrs ago who presented to [facility] ED 07/2013 with c/o dyspnea. CT chest significant for large b/l PE. One was a saddle embolus draped across the bifurcation of the main pulmonary artery and extending into both the right and left pulmonary artery segments per the CT report. Patient was transferred to [facility]. Not clear if she underwent [...] in abdomen. ? Patient was admitted to [facility] 04/19/2015 for acute left LE small DVT and possible cellulitis of the same leg. She was treated with vancomycin and anticoagulated with Lovenox and transferred to [facility] ([facility]) under the care of a gynecologic oncology [...] pT2b pN0. ? She was discharged to [facility]. Since the time of surgery, she had been having abdominal pain that is sharp and low in abdomen. It crescendos and is partially relieved with a BM. Returns shortly thereafter. Stools were loose and she had been having intermittent nausea with poor appetite. Was transferred to [facility] 05/09/2015 however for low Hgb of 6.1 g/dL. Received transfusion and admitted to [facility]. ? She received a blood transfusion. She was discharged back to the nursing facility and subsequent discharge home. She had been doing home physical therapy. She was making improvements. Initially seen here in plan was for adjuvant chemotherapy once the acute issues were resolved. ? She was admitted to [facility] with hypotension and acute kidney injury on [...] Immunostains were positive for HMB-45, SOX-10 and [place]-1. CD3, CD20, CD45, CD138, inhibin, [place] 8 and S100 were negative. No BRAF mutation. ? Patient was admitted to [facility] for fever and malaise. She was found to have Escherichia coli sepsis. She was treated with broad-spectrum antibiotics. Urine appeared to be the source. She also received a 2 unit red blood cell transfusion. She underwent colonoscopy where in she was found to have extensive involvement of the rectum and was thereafter transferred to [facility]. On initial exam was determined that the [...] Rng AND Units 07/30/2017 08/27/2017 09/24/2017 WBC, [place] 3.70 - 11.00 k/uL 5.12 6.59 5.06 RBC, [place] 3.90 - 5.20 m/uL 4.15 4.16 4.30 Hemoglobin, [place] 11.5 - 15.5 g/dL 12.6 12.6 13.2 Hematocrit, [place] 36.0 - 46.0 % 40.4 40.1 41.0 MCV, [place] 80.0 - 100.0 fL 97.3 96.4 95.3 MCH, [place] 26.0 - 34.0 pg 30.4 30.3 30.7 MCHC, [place] 30.5 - 36.0 g/dL 31.2 31.4 32.2 RDW, [place] 11.5 - 15.0 % 14.0 13.9 14.0 Platelet Cnt, [place] 150 - 400 k/uL 164 139 (L) 151 MPV, [place] 9.0 - 12.7 fL 9.8 10.6 9.9 [...] feels vision has improved. - F/u with route delivery manager as scheduled. - Reviewed CBC with pt. [...] and agrees with the plan. Nguyen López APRN.MILLER HELPER Referring Provider: ISIDRO ESTEVEZ [[id number]] Allergies As of Date: 09/24/2017 Noted Allergy Reaction ASA (ASPIRIN) 05/09/2015 5 - Intolerance Comments: nose bleeds CLINDAMYCIN 05/09/2015 14 - Other: See Comments Comments: jerking, talking funny DEMEROL (MEPERIDINE (PF)) 05/09/2015 8 - GI Upset IODINE 11/23/2016 9 - Itching MORPHINE 05/09/2015 8 - GI Upset VALIUM (DIAZEPAM) 05/09/2015 8 - GI Upset Date Reviewed: 09/24/2017 Reviewed by: Nguyen (Flower Pot Press Operator) Maribel - Fully Assessed Reason for Visit: [...] + CBC Collected: 09/24/2017 Status: F Source: [place] 10:17 AM [facility] REPOSITORY TYPE CODE TESTS RESULT OUT OF REFERENCE UNITS RANGE LAB WWBC 3.70-11.00 k/uL [place] WBC 5.06 LAB WRBC 3.90-5.20 m/uL [place] RBC 4.30 LAB WHGB 11.5-15.5 g/dL [place] Hemoglobin 13.2 LAB WHCT 36.0-46.0 % [place] Hematocrit 41.0 LAB WMCV 80.0-100.0 fL [place] MCV 95.3 LAB WMCH 26.0-34.0 pg [place] MCH 30.7 LAB WMCHC 30.5-36.0 g/dL [place] MCHC 32.2 LAB WRDW 11.5-15.0 % [place] RDW 14.0 LAB WPLT 150-400 k/uL [place] Platelet Cnt 151 LAB WMPV 9.0-12.7 fL [place] MPV 9.9 Result Comment: Test performed at: [address] [place] [address]. LAB ABGRAN 1.45-7.50 k/uL Absol Gran 3.59 Count COMP METABOLIC PANEL Collected: 09/24/2017 Status: F Source: [place] 10:17 AM [facility] REPOSITORY TYPE CODE TESTS RESULT OUT OF REFERENCE UNITS RANGE LAB TP 6.3-8.0 g/dL Protein, Total 7.0 LAB ALB 3.9-4.9 g/dL Albumin 4.1 LAB CA 8.5-10.2 mg/dL Calcium, Total 9.3 LAB TBIL 0.2-1.3 mg/dL Bilirubin, Total 0.8 LAB ALKP 32-117 U/L Alkaline Phosphatase 103 LAB AST 13-35 U/L AST 16 LAB GLU 74-99 mg/dL Glucose High 130 Result Comment: The [place] Diabetes Association (ADA) provides guidance for cutoff [...] Standards of Medical Care in Diabetes 2016, [place] [employer]. Diabetes Care. 2016.39(Suppl 1). LAB [...] actual GFR. Performed By: #### CMP #### [facility] [address] [place], [place] [address] PROGRESS Observed: 09/13/2017 Status: COMPLETED Source: [place] 11:46 AM [facility] REPOSITORY O ID: [id number] Author: Karen Heart Service: (none) Author Type: [...] 07/2013 - Type 2 diabetes mellitus (HCC) ~2000 Insulin requiring FAMILY HISTORY Problem Relation Age [...] lower extremity edema, or palpitations. No recent OK (within 6 months), cardiac stent, cardiac surgery, [...] needs referral to Colorectal team either at [place] or [facility]. I know both team and I can help facilitate that Total face to face time 60 minutes and more that 50% spent on counseling the patient and coordinating her care. Karen Heart MD, MPH A letter and a copy of this office note were sent to: - Isidro Estevez DO [address] [place] [id number] - Chente Daigle MD (PCP) CNOV Observed: 2017 Status: COMPLETED Source: [place] 3:00 PM [facility] REPOSITORY Office Visit (GYNCMD) KANU AJ ([id number]) 1945 F Date Time Provider Department 09/03/17 3:00 PM [facility] GYNCMAlla During your visit today, we recorded the [...] lower extremity edema, or palpitations. No recent OK (within 6 months), cardiac stent, cardiac surgery, [...] needs referral to Colorectal team either at [place] or [facility]. I know both team and I can help facilitate that Total face to face time 60 minutes and more that 50% spent on counseling the patient and coordinating her care. 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 HPI: The patient is a 71 yo female with a PMH significant for DM2, asthma, VTE, and possible mild CKD as well has hysterectomy ~31 yrs ago who presented to [facility] ED 07/2013 with c/o dyspnea. CT chest significant for large b/l PE. One was a saddle embolus draped across the bifurcation of the main pulmonary artery and extending into both the right and left pulmonary artery segments per the CT report. Patient was transferred to [facility]. Not clear if she underwent [...] elsewhere in abdomen. Patient was admitted to [facility] 04/19/2015 for acute left LE small DVT and possible cellulitis of the same leg. She was treated with vancomycin and anticoagulated with Lovenox and transferred to [facility] ([facility]) under the care of a gynecologic oncology [...] staged pT2b pN0. She was discharged to [facility]. Since the time of surgery, she had been having abdominal pain that is sharp and low in abdomen. It crescendos and is partially relieved with a BM. Returns shortly thereafter. Stools were loose and she had been having intermittent nausea with poor appetite. Was transferred to [facility] 05/09/2015 however for low Hgb of 6.1 g/dL. Received transfusion and admitted to [facility]. She received a blood transfusion. She was discharged back to the nursing facility and subsequent discharge home. She had been doing home physical therapy. She was making improvements. Initially seen here in plan was for adjuvant chemotherapy once the acute issues were resolved. She was admitted to [facility] with hypotension and acute kidney injury on [...] Immunostains were positive for HMB-45, SOX-10 and [place]-1. CD3, CD20, CD45, CD138, inhibin, [place] 8 and S100 were negative. No BRAF mutation. Patient was admitted to [facility] for fever and malaise. She was found to have Escherichia coli sepsis. She was treated with broad-spectrum antibiotics. Urine appeared to be the source. She also received a 2 unit red blood cell transfusion. She underwent colonoscopy where in she was found to have extensive involvement of the rectum and was thereafter transferred to [facility]. On initial exam was determined that the [...] and iritis has improved according to her route delivery manager. She still had persistent retinal edema but [...] edema bilaterally. No sign of cellulitis. NEUROLOGIC: alignment mechanic II-XII are grossly intact. 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 -She is tolerating treatment very well with significant response of the pelvic melanoma. She is having side effects including iritis and retinitis but the symptoms are stable to improving on local steroid therapy. -I discussed the case with her route delivery manager and plan to monitor her very closely throughout her treatment course. If symptoms worsen she will need high-dose prednisone with tapering. -She also mentioned today that she would like a second opinion surgically regarding the ostomy hernia and future potential for possible resection of the primary tumor in the pelvis. Plan: -Okay for continued therapy. -Follow up with route delivery manager a schedule. -Will see if I can get referral to WIRE WEAVER HELPER on surgery and colorectal surgery. (C56.2) Granulosa [...] DO CNOVSP Observed: 08/27/2017 Status: COMPLETED Source: [place] 11:00 AM [facility] REPOSITORY Visit (SP) Office (CRUZ) KANU AJ ([id number]) 1945 F Date Time Provider Department 08/27/17 11:00 AM ISIDRO ESTEVEZ During your visit today, [...] hysterectomy ~31 yrs ago who presented to [facility] ED 07/2013 with c/o dyspnea. CT chest significant for large b/l PE. One was a saddle embolus draped across the bifurcation of the main pulmonary artery and extending into both the right and left pulmonary artery segments per the CT report. Patient was transferred to [facility]. Not clear if she underwent [...] elsewhere in abdomen. Patient was admitted to [facility] 04/19/2015 for acute left LE small DVT and possible cellulitis of the same leg. She was treated with vancomycin and anticoagulated with Lovenox and transferred to [facility] ([facility]) under the care of a gynecologic oncology [...] staged pT2b pN0. She was discharged to [facility]. Since the time of surgery, she had been having abdominal pain that is sharp and low in abdomen. It crescendos and is partially relieved with a BM. Returns shortly thereafter. Stools were loose and she had been having intermittent nausea with poor appetite. Was transferred to [facility] 05/09/2015 however for low Hgb of 6.1 g/dL. Received transfusion and admitted to [facility]. She received a blood transfusion. She was discharged back to the nursing facility and subsequent discharge home. She had been doing home physical therapy. She was making improvements. Initially seen here in plan was for adjuvant chemotherapy once the acute issues were resolved. She was admitted to [facility] with hypotension and acute kidney injury on [...] Immunostains were positive for HMB-45, SOX-10 and [place]le[place]-1. CD3, CD20, CD45, CD138, inhibin, [place] 8 and S100 were negative. No BRAF mutation. Patient was admitted to [facility] for fever and malaise. She was found to have Escherichia coli sepsis. She was treated with broad-spectrum antibiotics. Urine appeared to be the source. She also received a 2 unit red blood cell transfusion. She underwent colonoscopy where in she was found to have extensive involvement of the rectum and was thereafter transferred to [facility]. On initial exam was determined that the [...] and iritis has improved according to her route delivery manager. She still had persistent retinal edema but [...] edema bilaterally. No sign of cellulitis. NEUROLOGIC: alignment mechanic II-XII are grossly intact. 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 -She is tolerating treatment very well with significant response of the pelvic melanoma. She is having side effects including iritis and retinitis but the symptoms are stable to improving on local steroid therapy. -I discussed the case with her route delivery manager and plan to monitor her very closely throughout her treatment course. If symptoms worsen she will need high-dose prednisone with tapering. -She also mentioned today that she would like a second opinion surgically regarding the ostomy hernia and future potential for possible resection of the primary tumor in the pelvis. Plan: -Okay for continued therapy. -Follow up with route delivery manager a schedule. -Will see if I can get referral to [facility] on surgery and colorectal surgery. (C56.2) Granulosa [...] Isidro Estevez DO Referring Provider: ISIDRO ESTEVEZ [[id number]] Allergies As of Date: 08/27/2017 Noted Allergy Reaction ASA (ASPIRIN) 05/09/2015 5 - Intolerance Comments: nose bleeds CLINDAMYCIN 05/09/2015 14 - Other: See Comments Comments: ricardo, talking yousif JARAEROL (MEPERIDINE (PF)) 05/09/2015 8 - GI Upset [...] Discuss recent labs. Treatment Wednesday. Shelia Sanchez LPN Encounter Status:Closed by ISIDRO ESTEVEZ DO on 08/27/17 [place] ABS GR + CBC Collected: 08/27/2017 Status: F Source: [place] 10:42 AM [facility] [place] REPOSITORY TYPE CODE TESTS RESULT OUT OF REFERENCE UNITS RANGE LAB WWBC 3.70-11.00 k/uL [place] WBC 6.59 LAB WRBC 3.90-5.20 m/uL [place] RBC 4.16 LAB WHGB 11.5-15.5 g/dL [place] Hemoglobin 12.6 LAB WHCT 36.0-46.0 % [place] Hematocrit 40.1 LAB WMCV 80.0-100.0 fL [place] MCV 96.4 LAB WMCH 26.0-34.0 pg [place] MCH 30.3 LAB WMCHC 30.5-36.0 g/dL [place] MCHC 31.4 LAB WRDW 11.5-15.0 % [place] RDW 13.9 LAB WPLT 150-400 k/uL Low [place] Platelet Cnt 139 LAB WMPV 9.0-12.7 fL [place] MPV 10.6 Result Comment: Test performed at: [facility] [place], [address] [place] [address]. LAB ABGRAN 1.45-7.50 k/uL Absol Gran 5.29 Count COMP METABOLIC PANEL Collected: 08/27/2017 Status: F Source: [facility] 10:42 AM [facility] REPOSITORY TYPE CODE [...] mg/dL Glucose High 194 Result Comment: The [place] Diabetes Association (ADA) provides guidance for cutoff [...] Standards of Medical Care in Diabetes 2016, [place] Diabetes Association. Diabetes Care. 2016.39(Suppl 1). LAB [...] has been calibrated to be traceable to IDAL. An eGFR <60 mL/min/1.73m2 for >3 months is consistent with chronic kidney disease. Refer to KDOQI guidelines for clinical interpretation. In patients with unstable renal function, e.g. those with acute kidney injury, the eGFR may not accurately reflect actual GFR. Performed By: #### CMP #### [facility] [address], [place] [address] ERYTHROCYTE SED RATE Collected: 08/03/2017 Status: F Source: [place] 11:21 AM [facility] [place] TYPE CODE TESTS RESULT OUT OF RANGE REFERENCE UNITS LAB L102.0000 0-30 mm/hr Normal SED RATE 22 Performed By: #### L101.9900 #### [facility] [address] [place], [place], [address] RHEUMATOID FACTOR Collected: 08/03/2017 Status: F Source: [place] 11:21 AM [facility] [place] TYPE CODE TESTS RESULT OUT OF RANGE REFERENCE UNITS LAB L505.7010 <15 IU/mL Normal RHEUMATOID FAC < 10.0 Performed By: #### L505.7010 #### [facility] [address] [place], [place], [address] ANTINUCLEAR ANTIBODY, Collected: 08/03/2017 Status: F Source: [place] IFA 11:21 AM [facility] [place]POS[place] TYPE CODE TESTS RESULT OUT OF [...] titers Nucleosomes, Histones Drug-induced SLE Speckled Sm, RAISER HELPER, SCL-70, SLE,MCTD,PSS (diffuse form), SS-A/SS-B Sjogrens Nucleolar SCL-70, PM-1/SCL High titers Scleroderma, PM/DM Centromere Centromere PSS (limited form) w/Crest syndrome variable Nuclear Dot Sp100,c74-spwdge Primary Biliary Cirrhosis Nuclear GP210, Primary Biliary Membrane makenna A,B,C Cirrhosis TESTING PERFORMED AT [facility]. ORIGINAL REPORT ON FILE IN LAB CONTAINS ADDITIONAL TEST SITE INFORMATION. Performed By: #### L3100.7950 #### [facility] (refer to report for specific site) refer to report for address and phone number RAPID PLASMIN REAGIN Collected: 08/03/2017 Status: F Source: [place] (RPR) 11:21 AM [facility] [place] TYPE CODE TESTS RESULT OUT OF REFERENCE UNITS RANGE LAB L700.5000 NONREACTIVE NONREACTIVE Normal RPR Performed By: #### L700.5000 #### [facility] [address] [place], [address] HLA B27 Collected: 08/03/2017 Status: F Source: [place] 11:21 AM [facility] [place] TYPE CODE TESTS RESULT OUT OF RANGE REFERENCE UNITS LAB L3410.1500 . Normal HLA Negative B27 Result Comment: HLA-B*27 Negative B27 allele interpretation for all loci based on IMGT/HLA database version 3.27 This test was developed and its performance characteristics determined by [facility]. It has not been cleared or approved by the Food and Drug Administration. [facility] CLIA ID Number [id number] This test was performed using PCR (Polymerase Chain Reaction)/SSOP (Sequence Specific Oligonucleotide Probes) technique. SBT (Sequence Based Typing) and/or SSP (Sequence Specific Primers) may be used as supplemental methods when necessary. Please contact [facility] Customer Service at if you have any questions. 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 HPI: The patient is a 71 yo female with a PMH significant for DM2, asthma, VTE, and possible mild CKD as well has hysterectomy ~31 yrs ago who presented to [facility] ED 07/2013 with c/o dyspnea. CT chest significant for large b/l PE. One was a saddle embolus draped across the bifurcation of the main pulmonary artery and extending into both the right and left pulmonary artery segments per the CT report. Patient was transferred to [facility]. Not clear if she underwent [...] elsewhere in abdomen. Patient was admitted to [facility] 04/19/2015 for acute left LE small DVT and possible cellulitis of the same leg. She was treated with vancomycin and anticoagulated with Lovenox and transferred to [facility] ([facility]) under the care of a gynecologic oncology [...] staged pT2b pN0. She was discharged to [facility]. Since the time of surgery, she had been having abdominal pain that is sharp and low in abdomen. It crescendos and is partially relieved with a BM. Returns shortly thereafter. Stools were loose and she had been having intermittent nausea with poor appetite. Was transferred to [facility] 05/09/2015 however for low Hgb of 6.1 g/dL. Received transfusion and admitted to [facility]. She received a blood transfusion. She was discharged back to the nursing facility and subsequent discharge home. She had been doing home physical therapy. She was making improvements. Initially seen here in plan was for adjuvant chemotherapy once the acute issues were resolved. She was admitted to [facility] with hypotension and acute kidney injury on [...] Immunostains were positive for HMB-45, SOX-10 and [place]le[place]-1. CD3, CD20, CD45, CD138, inhibin, [place] 8 and S100 were negative. No BRAF mutation. Patient was admitted to [facility] for fever and malaise. She was found to have Escherichia coli sepsis. She was treated with broad-spectrum antibiotics. Urine appeared to be the source. She also received a 2 unit red blood cell transfusion. She underwent colonoscopy where in she was found to have extensive involvement of the rectum and was thereafter transferred to [facility]. On initial exam was determined that the [...] is progress. She was seen by her labor service representative last week who also noticed that she had mild bilateral iritis with the left eye being worse than the right. She has no other symptoms to suggest an autoimmune reaction. She is going to be seeing an route delivery manager this coming Wednesday for discussion of cataract [...] edema bilaterally. No sign of cellulitis. NEUROLOGIC: alignment mechanic II-XII are grossly intact. 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 -She is tolerating nivolumab well. -I personally reviewed CT images and again with patient and independently verified and agreed with the radiologist's findings. SD. -Discussed plan to continue therapy for now. She will be seeing her chief operator hydroformer surgeon in a couple weeks. Considering takedown [...] -Continue current regimen. Iritis. -Discussed with her labor service representative. Also discussed with the patient. She feels her symptoms have been more insidious and perhaps predate the use about the low. For now I'm comfortable continuing therapy but will discuss her case with her route delivery manager next Wednesday. DO AMIRAH Bentley Observed: 07/30/2017 Status: COMPLETED Source: [place] 11:20 AM [facility] REPOSITORY Visit (SP) Office (HEMDANIELA) KANU AJ ([id number]) 1945 F Date Time Provider Department 07/30/17 11:20 AM ISIDRO ESTEVEZ During your visit today, we recorded the following information about you: Temperature Pulse Blood pressure Weight 98.2 degrees 82/minute 124/65 96.4 kg Shelia Sanchez LPN 07/30/2017 11:52 AM Signed Est patient. Discuss recent labs. 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 HPI: The patient is a 71 yo female with a PMH significant for DM2, asthma, VTE, and possible mild CKD as well has hysterectomy ~31 yrs ago who presented to [facility] ED 07/2013 with c/o dyspnea. CT chest significant for large b/l PE. One was a saddle embolus draped across the bifurcation of the main pulmonary artery and extending into both the right and left pulmonary artery segments per the CT report. Patient was transferred to [facility]. Not clear if she underwent [...] elsewhere in abdomen. Patient was admitted to [facility] 04/19/2015 for acute left LE small DVT and possible cellulitis of the same leg. She was treated with vancomycin and anticoagulated with Lovenox and transferred to [facility] under the care of a gynecologic oncology [...] staged pT2b pN0. She was discharged to [facility]. Since the time of surgery, she had been having abdominal pain that is sharp and low in abdomen. It crescendos and is partially relieved with a BM. Returns shortly thereafter. Stools were loose and she had been having intermittent nausea with poor appetite. Was transferred to [facility] 05/09/2015 however for low Hgb of 6.1 g/dL. Received transfusion and admitted to [facility]. She received a blood transfusion. She was discharged back to the nursing facility and subsequent discharge home. She had been doing home physical therapy. She was making improvements. Initially seen here in plan was for adjuvant chemotherapy once the acute issues were resolved. She was admitted to [facility] with hypotension and acute kidney injury on [...] Immunostains were positive for HMB-45, SOX-10 and [place]-1. CD3, CD20, CD45, CD138, inhibin, [place] 8 and S100 were negative. No BRAF mutation. Patient was admitted to [facility] for fever and malaise. She was found to have Escherichia coli sepsis. She was treated with broad-spectrum antibiotics. Urine appeared to be the source. She also received a 2 unit red blood cell transfusion. She underwent colonoscopy where in she was found to have extensive involvement of the rectum and was thereafter transferred to [facility]. On initial exam was determined that the [...] is progress. She was seen by her labor service representative last week who also noticed that she had mild bilateral iritis with the left eye being worse than the right. She has no other symptoms to suggest an autoimmune reaction. She is going to be seeing an route delivery manager this coming Wednesday for discussion of cataract [...] edema bilaterally. No sign of cellulitis. NEUROLOGIC: alignment mechanic II-XII are grossly intact. 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 -She is tolerating nivolumab well. -I personally reviewed CT images and again with patient and independently verified and agreed with the radiologist's findings. SD. -Discussed plan to continue therapy for now. She will be seeing her chief operator hydroformer surgeon in a couple weeks. Considering takedown [...] -Continue current regimen. Iritis. -Discussed with her labor service representative. Also discussed with the patient. She feels her symptoms have been more insidious and perhaps predate the use about the low. For now I'm comfortable continuing therapy but will discuss her case with her route delivery manager next Wednesday. Isidro Estevez DO Referring Provider: ISIDRO ESTEVEZ [[id number]] Allergies As of Date: 07/30/2017 Noted Allergy [...] FOR* More... Visit Notes: >> Shelia Sanchez SHARIF WedJul 30, 2017 11:24 AM Status: Signed Est patient. Discuss recent labs. Shelia Hannah OLGUIN Encounter Status:Closed by ISIDRO ESTEVEZ DO on 07/30/17 [place] ABS GR + CBC Collected: 07/30/2017 Status: F Source: [place] 11:15 AM [facility] REPOSITORY TYPE CODE TESTS RESULT OUT OF REFERENCE UNITS RANGE LAB WWBC 3.70-11.00 k/uL [place] WBC 5.12 LAB WRBC 3.90-5.20 m/uL [place] RBC 4.15 LAB WHGB 11.5-15.5 g/dL [place] Hemoglobin 12.6 LAB WHCT 36.0-46.0 % [place] Hematocrit 40.4 LAB WMCV 80.0-100.0 fL [place] MCV 97.3 LAB WMCH 26.0-34.0 pg [place] MCH 30.4 LAB WMCHC 30.5-36.0 g/dL [place] MCHC 31.2 LAB WRDW 11.5-15.0 % [place] RDW 14.0 LAB WPLT 150-400 k/uL [place] Platelet Cnt 164 LAB WMPV 9.0-12.7 fL [place] MPV 9.8 Result Comment: Test performed at: [facility], [address] [place] [address] [address] [place] [address]. LAB ABGRAN 1.45-7.50 k/uL Absol Gran 3.61 Count COMP METABOLIC PANEL Collected: 07/30/2017 Status: F Source: [place] 11:15 AM [facility] REPOSITORY TYPE CODE TESTS RESULT OUT OF REFERENCE UNITS RANGE LAB TP 6.3-8.0 g/dL Protein, Total 7.3 LAB ALB 3.9-4.9 g/dL Albumin 4.1 LAB CA 8.5-10.2 mg/dL Calcium, Total 9.3 LAB TBIL 0.2-1.3 mg/dL Bilirubin, Total 0.6 LAB ALKP 32-117 U/L Alkaline Phosphatase 97 LAB AST 13-35 U/L AST 13 LAB GLU 74-99 mg/dL Glucose High 129 Result Comment: The [place] Diabetes Association (ADA) provides guidance for cutoff [...] Standards of Medical Care in Diabetes 2016, [place] Diabetes Association. Diabetes Care. 2016.39(Suppl 1). LAB [...] actual GFR. Performed By: #### CMP #### [facility] [address] [place], [place] [address] CT ABD/PEL W IVCON Observed: 07/28/2017 Status: F Source: [place] 12:32 PM [facility] REPOSITORY * * *Final Report* * * DATE OF EXAM: Jul 28 2017 12:32PM [facility] 0530 - CT ABD/PEL W IVCON [...] THROMBUS ABOVE THE LEVEL OF THE FILTER Supervisor Sewer Maintenance: DYLLAN Transcribe Date/Time: Jul 29 2017 10:53A Dictated by : CATHY DAWSON MD This examination was interpreted and the report reviewed and electronically signed by: CATHY DAWSON MD on Jul 29 2017 11:14AM EST [id number] CT CHEST W IVCON Observed: 07/28/2017 Status: F Source: [place] 12:32 PM [facility] REPOSITORY * * *Final Report* * * DATE OF EXAM: Jul 28 2017 12:32PM [facility] 0539 - CT CHEST W IVCON [...] left basilar atelectasis, similar to prior study. Supervisor Sewer Maintenance: DYLLAN Transcribe Date/Time: Jul 30 2017 10:07A Dictated by : MIKE OCHOA MD This examination was interpreted and the report reviewed and electronically signed by: MIKE OCHOA MD on Jul 30 2017 4:05PM EST [id number] PROGRESS Observed: 07/28/2017 Status: COMPLETED Source: [place] 12:10 PM [facility] REPOSITORY O ID: [id number] Author: Carlyn Mooney Ct Service: (none) Author Type: (none) [...] PM PROGRESS Observed: 07/28/2017 Status: COMPLETED Source: [place] 10:19 AM [facility] REPOSITORY HNO ID: [id number] Author: Natali Tam (Rt) Service: (none) Author Type: Quick Technician Type: Progress Notes Filed: 07/28/2017 10:20 AM [...] PELVIS WO/W Observed: 07/28/2017 Status: F Source: [place] IVCON 10:17 AM [facility] REPOSITORY * * *Final Report* * * DATE OF EXAM: Jul 28 2017 10:17AM [facility] 0742 - MRI PELVIS WO/W IVCON / [...] mesorectal and right pelvic sidewall lymph nodes. 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 HPI: The patient is a 71 yo female with a PMH significant for DM2, asthma, VTE, and possible mild CKD as well has hysterectomy ~31 yrs ago who presented to [facility] ED 07/2013 with c/o dyspnea. CT chest significant for large b/l PE. One was a saddle embolus draped across the bifurcation of the main pulmonary artery and extending into both the right and left pulmonary artery segments per the CT report. Patient was transferred to [facility]. Not clear if she underwent [...] elsewhere in abdomen. Patient was admitted to [facility] 04/19/2015 for acute left LE small DVT and possible cellulitis of the same leg. She was treated with vancomycin and anticoagulated with Lovenox and transferred to [facility] under the care of a gynecologic oncology [...] staged pT2b pN0. She was discharged to [facility]. Since the time of surgery, she had been having abdominal pain that is sharp and low in abdomen. It crescendos and is partially relieved with a BM. Returns shortly thereafter. Stools were loose and she had been having intermittent nausea with poor appetite. Was transferred to [facility] 05/09/2015 however for low Hgb of 6.1 g/dL. Received transfusion and admitted to [facility]. She received a blood transfusion. She was discharged back to the nursing facility and subsequent discharge home. She had been doing home physical therapy. She was making improvements. Initially seen here in plan was for adjuvant chemotherapy once the acute issues were resolved. She was admitted to [facility] with hypotension and acute kidney injury on [...] Immunostains were positive for HMB-45, SOX-10 and [place]-1. CD3, CD20, CD45, CD138, inhibin, [place] 8 and S100 were negative. No BRAF mutation. Patient was admitted to [facility] for fever and malaise. She was found to have Escherichia coli sepsis. She was treated with broad-spectrum antibiotics. Urine appeared to be the source. She also received a 2 unit red blood cell transfusion. She underwent colonoscopy where in she was found to have extensive involvement of the rectum and was thereafter transferred to [facility]. On initial exam was determined that the [...] edema bilaterally. No sign of cellulitis. NEUROLOGIC: alignment mechanic II-XII are grossly intact. ASSESSMENT/PLAN: (C52) Melanoma [...] + CBC Collected: 07/02/2017 Status: F Source: [place] 9:41 AM [facility] REPOSITORY TYPE CODE TESTS RESULT OUT OF REFERENCE UNITS RANGE LAB WWBC 3.70-11.00 k/uL [place] WBC 4.96 LAB WRBC 3.90-5.20 m/uL [place] RBC 4.04 LAB WHGB 11.5-15.5 g/dL [place] Hemoglobin 12.4 LAB WHCT 36.0-46.0 % [place] Hematocrit 39.0 LAB WMCV 80.0-100.0 fL [place] MCV 96.5 LAB WMCH 26.0-34.0 pg [place] MCH 30.7 LAB WMCHC 30.5-36.0 g/dL [place] MCHC 31.8 LAB WRDW 11.5-15.0 % [place] RDW 14.1 LAB WPLT 150-400 k/uL [place] Platelet Cnt 158 LAB WMPV 9.0-12.7 fL [place] MPV 9.8 Result Comment: Test performed at: [facility] [place], [address] [place] [address]. LAB ABGRAN 1.45-7.50 k/uL Absol Gran 3.47 Count COMP METABOLIC PANEL Collected: 07/02/2017 Status: F Source: [place] 9:41 AM [facility] REPOSITORY TYPE CODE TESTS RESULT OUT OF REFERENCE UNITS RANGE LAB TP 6.3-8.0 g/dL Protein, Total 7.1 LAB ALB 3.9-4.9 g/dL Albumin 4.0 LAB CA 8.5-10.2 mg/dL Calcium, Total 9.6 LAB TBIL 0.2-1.3 mg/dL Bilirubin, Total 0.8 LAB ALKP 32-117 U/L Alkaline Phosphatase 101 LAB AST 13-35 U/L AST 15 LAB GLU 74-99 mg/dL Glucose High 149 Result Comment: The [place] Diabetes Association (ADA) provides guidance for cutoff [...] Standards of Medical Care in Diabetes 2016, [place] [employer]. Diabetes Care. 2016.39(Suppl 1). LAB [...] has been calibrated to be traceable to IDQiro. An eGFR <60 mL/min/1.73m2 for >3 months is consistent with chronic kidney disease. Refer to KDOQI guidelines for clinical interpretation. In patients with unstable renal function, e.g. those with acute kidney injury, the eGFR may not accurately reflect actual GFR. Performed By: #### CMP #### [facility] [address] [place], [place] [address] CNOVSP Observed: 07/02/2017 Status: COMPLETED Source: [place] 9:40 AM [facility] REPOSITORY Visit (SP) Office (CRUZ) KANU AJ ([id number]) 1945 F Date Time Provider Department 07/02/17 [...] hysterectomy ~31 yrs ago who presented to [facility] ED 07/2013 with c/o dyspnea. CT chest significant for large b/l PE. One was a saddle embolus draped across the bifurcation of the main pulmonary artery and extending into both the right and left pulmonary artery segments per the CT report. Patient was transferred to [facility]. Not clear if she underwent [...] elsewhere in abdomen. Patient was admitted to [facility] 04/19/2015 for acute left LE small DVT and possible cellulitis of the same leg. She was treated with vancomycin and anticoagulated with Lovenox and transferred to [facility]) under the care of a gynecologic oncology [...] staged pT2b pN0. She was discharged to [facility]. Since the time of surgery, she had been having abdominal pain that is sharp and low in abdomen. It crescendos and is partially relieved with a BM. Returns shortly thereafter. Stools were loose and she had been having intermittent nausea with poor appetite. Was transferred to [facility] 05/09/2015 however for low Hgb of 6.1 g/dL. Received transfusion and admitted to [facility]. She received a blood transfusion. She was discharged back to the nursing facility and subsequent discharge home. She had been doing home physical therapy. She was making improvements. Initially seen here in plan was for adjuvant chemotherapy once the acute issues were resolved. She was admitted to [facility] with hypotension and acute kidney injury on [...] Immunostains were positive for HMB-45, SOX-10 and [place]-1. CD3, CD20, CD45, CD138, inhibin, [place] 8 and S100 were negative. No BRAF mutation. Patient was admitted to [facility] for fever and malaise. She was found to have Escherichia coli sepsis. She was treated with broad-spectrum antibiotics. Urine appeared to be the source. She also received a 2 unit red blood cell transfusion. She underwent colonoscopy where in she was found to have extensive involvement of the rectum and was thereafter transferred to [facility]. On initial exam was determined that the [...] edema bilaterally. No sign of cellulitis. NEUROLOGIC: alignment mechanic II-XII are grossly intact. ASSESSMENT/PLAN: (C52) Melanoma [...] Isidro Estevez DO Referring Provider: ISIDRO ESTEVEZ [[id number]] Allergies As of Date: 07/02/2017 Noted Allergy [...] 180 tabletRfl: 0 CT ABD/PEL W IVCON [[id number]] Order #: [id number] FUTURE CT CHEST W IVCON [[id number]] Order #: [id number] FUTURE iv contrast (radiology procedure)CT Chest ABD/PEL-Inject, [...] 1 EachRfl: 0 MRI PELVIS WO/W IVCON [[id number]] Order #: [id number] FUTURE iv contrast (radiology procedure)MRI Pelvis Inject, [...] 07/02/17 PROGRESS Observed: 06/07/2017 Status: COMPLETED Source: [place] 3:45 PM [facility] REPOSITORY O ID: [id number] Author: Isidro Estevez Service: (none) Author Type: Physician Type: Progress Notes Filed: 06/07/2017 4:56 PM Note Text: Diagnoses: 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 HPI: The patient is a 71 yo female with a PMH significant for DM2, asthma, VTE, and possible mild CKD as well has hysterectomy ~31 yrs ago who presented to [facility] ED 07/2013 with c/o dyspnea. CT chest significant for large b/l PE. One was a saddle embolus draped across the bifurcation of the main pulmonary artery and extending into both the right and left pulmonary artery segments per the CT report. Patient was transferred to [facility]. Not clear if she underwent [...] elsewhere in abdomen. Patient was admitted to [facility] 04/19/2015 for acute left LE small DVT and possible cellulitis of the same leg. She was treated with vancomycin and anticoagulated with Lovenox and transferred to [facility] ([facility]) under the care of a gynecologic oncology [...] staged pT2b pN0. She was discharged to [facility]. Since the time of surgery, she had been having abdominal pain that is sharp and low in abdomen. It crescendos and is partially relieved with a BM. Returns shortly thereafter. Stools were loose and she had been having intermittent nausea with poor appetite. Was transferred to [facility] 05/09/2015 however for low Hgb of 6.1 g/dL. Received transfusion and admitted to [facility]. She received a blood transfusion. She was discharged back to the nursing facility and subsequent discharge home. She had been doing home physical therapy. She was making improvements. Initially seen here in plan was for adjuvant chemotherapy once the acute issues were resolved. She was admitted to [facility] with hypotension and acute kidney injury on [...] Immunostains were positive for HMB-45, SOX-10 and [place]-1. CD3, CD20, CD45, CD138, inhibin, [place] 8 and S100 were negative. No BRAF mutation. Patient was admitted to [facility] for fever and malaise. She was found to have Escherichia coli sepsis. She was treated with broad-spectrum antibiotics. Urine appeared to be the source. She also received a 2 unit red blood cell transfusion. She underwent colonoscopy where in she was found to have extensive involvement of the rectum and was thereafter transferred to [facility]. On initial exam was determined that the [...] bilaterally. No sign of cellulitis currently. NEUROLOGIC: alignment mechanic II-XII are grossly intact. ASSESSMENT/PLAN: (C52) Melanoma [...] Estevez, [place] ABS GR + CBC Collected: 06/07/2017 Status: F Source: [place] 3:01 PM [facility] REPOSITORY TYPE CODE TESTS RESULT OUT OF REFERENCE UNITS RANGE LAB WWBC 3.70-11.00 k/uL [place] WBC 6.26 LAB WRBC 3.90-5.20 m/uL [place] RBC 4.01 LAB WHGB 11.5-15.5 g/dL [place] Hemoglobin 12.4 LAB WHCT 36.0-46.0 % [place] Hematocrit 39.1 LAB WMCV 80.0-100.0 fL [place] MCV 97.5 LAB WMCH 26.0-34.0 pg [place] MCH 30.9 LAB WMCHC 30.5-36.0 g/dL [place] MCHC 31.7 LAB WRDW 11.5-15.0 % [place] RDW 14.7 LAB WPLT 150-400 k/uL Low [place] Platelet Cnt 137 LAB WMPV 9.0-12.7 fL [place] MPV 9.8 Result Comment: Test performed at: [facility], [address] [place] [address]. LAB ABGRAN 1.45-7.50 k/uL Absol Gran 4.82 Count COMP METABOLIC PANEL Collected: 06/07/2017 Status: F Source: [place] 3:01 PM [facility] REPOSITORY TYPE CODE TESTS [...] mg/dL Glucose High 219 Result Comment: The [place] Diabetes Association (ADA) provides guidance for cutoff [...] Standards of Medical Care in Diabetes 2016, [place] [employer] Association. Diabetes Care. 2016.39(Suppl 1). LAB [...] actual GFR. Performed By: #### CMP #### [facility] [address] [place], [place] [address] OVSP Observed: 06/07/2017 Status: COMPLETED Source: [place] 2:30 PM [facility] REPOSITORY Visit (SP) Office (CRUZ) KANU AJ ([id number]) 1945 F Date Time Provider Department 06/07/17 2:30 PM ISIDRO ESTEVEZ During your visit today, we recorded the following information about you: Temperature Pulse Blood pressure Weight 98.5 degrees 96/minute 150/68 95.3 kg Kylah Parker LPN, LPN 06/07/2017 3:50 PM Signed Est pt, discuss recent lab results, tx tomorrow SHARIF Dunaway DO 06/07/2017 4:56 PM Signed Diagnoses: 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 HPI: The patient is a 71 yo female with a PMH significant for DM2, asthma, VTE, and possible mild CKD as well has hysterectomy ~31 yrs ago who presented to [facility] ED 07/2013 with c/o dyspnea. CT chest significant for large b/l PE. One was a saddle embolus draped across the bifurcation of the main pulmonary artery and extending into both the right and left pulmonary artery segments per the CT report. Patient was transferred to [facility]. Not clear if she underwent [...] elsewhere in abdomen. Patient was admitted to [facility] 04/19/2015 for acute left LE small DVT and possible cellulitis of the same leg. She was treated with vancomycin and anticoagulated with Lovenox and transferred to [facility] ([facility]) under the care of a gynecologic oncology [...] staged pT2b pN0. She was discharged to [facility]. Since the time of surgery, she had been having abdominal pain that is sharp and low in abdomen. It crescendos and is partially relieved with a BM. Returns shortly thereafter. Stools were loose and she had been having intermittent nausea with poor appetite. Was transferred to [facility] 05/09/2015 however for low Hgb of 6.1 g/dL. Received transfusion and admitted to [facility]. She received a blood transfusion. She was discharged back to the nursing facility and subsequent discharge home. She had been doing home physical therapy. She was making improvements. Initially seen here in plan was for adjuvant chemotherapy once the acute issues were resolved. She was admitted to [facility] with hypotension and acute kidney injury on [...] Immunostains were positive for HMB-45, SOX-10 and [place]-1. CD3, CD20, CD45, CD138, inhibin, [place] 8 and S100 were negative. No BRAF mutation. Patient was admitted to [facility] for fever and malaise. She was found to have Escherichia coli sepsis. She was treated with broad-spectrum antibiotics. Urine appeared to be the source. She also received a 2 unit red blood cell transfusion. She underwent colonoscopy where in she was found to have extensive involvement of the rectum and was thereafter transferred to [facility]. On initial exam was determined that the [...] bilaterally. No sign of cellulitis currently. NEUROLOGIC: alignment mechanic II-XII are grossly intact. ASSESSMENT/PLAN: (C52) Melanoma [...] Isidro Estevez DO Referring Provider: ISIDRO ESTEVEZ [[id number]] Allergies As of Date: 06/07/2017 Noted Allergy Reaction ASA (ASPIRIN) 05/09/2015 5 - Intolerance Comments: nose bleeds CLINDAMYCIN 05/09/2015 14 - Other: See Comments Comments: jerking, talking funny DEMEROL (MEPERIDINE (PF)) 05/09/2015 8 - GI Upset IODINE 11/23/2016 9 - Itching MORPHINE 05/09/2015 8 - GI Upset VALIUM (DIAZEPAM) 05/09/2015 8 - GI Upset Date Reviewed: 06/07/2017 Reviewed by: Kylah Hernandez ([employer]) SHARIF Parker - Fully Assessed Reason for [...] ER 10 MEQ TABLET,EXTENDED RELEASE >> Kylah Parker LPN, LPN 06/07/2017 3:16 PM >> KYLAH PARKER WedJun [...] More... Visit Notes: >> Kylah Parker LPN WedJun 07, 2017 3:16 PM Status: Signed Est pt, discuss recent lab results, tx tomorrow Kylah Parker LPN Encounter Status:Closed by ISIDRO ESTEVEZ DO on 06/07/17 ALLERGIES ALLERGIES DATE TYPE / NAME / CODE REACTION SEVERITY SOURCE CODE 03/25/2018 DRUG PENICILLIN GI UPSET [facility] INGREDI/41 [facility] 7046636(SN Repository OMED CT) 10/15/2017 Drug meperidine Other Unknown [place] Allergy/41 HCl/[id number](RX Community 9476890([facility]) Repository 10/15/2017 Drug Penicillins/F0010 Itching Unknown [place] Allergy/41 04404(RXNORM) Community 0865502([facility]) Repository 10/15/2017 Drug diazepam/B6653167 Nausea/Vom/Diarrh Unknown [place] Allergy/41 61(RXNORM) ea Community 2048597([facility]) Repository 10/15/2017 Drug morphine/E6716195 Nausea/Vom/Diarrh Unknown [place] Allergy/41 45(RXNORM) ea [facility] 2745715([facility]) Repository 10/15/2017 Drug aspirin/A55214750 Other Unknown [place] Allergy/41 7(RXNORM) Community 5473799([facility]) Repository 10/15/2017 Drug clindamycin/F0060 Other Unknown [place] Allergy/41 25943(RXNORM) Community 0133843([facility]) Repository 10/15/2017 Drug sulfamethoxazole/ Nausea/Vom/Diarrh Unknown [place] Allergy/41 [id number](RXNORM ea Community 9505854([facility]) Repository 10/15/2017 Drug trimethoprim/F006 Nausea/Vom/Diarrh Unknown [place] Allergy/41 786611(RXNORM) ea [facility] 1152754([facility]) Repository 10/15/2017 Drug adhesive Other Unknown [place] Allergy/41 tape/H007693589(R Community 7444237( XNORM) [facility]) Repository 10/15/2017 Drug egg/G683904294(RX Diarrhea Unknown [place] Allergy/41 NORM) Community 9348252([facility]) Repository 11/23/2016 DRUG IODINE ITCHING [place] [address] [place] 4858060( Repository OMED CT) 05/09/2015 DRUG ASPIRIN INTOLERANCE [place] [address] [place] 4950030([facility] OMED CT) 05/09/2015 DRUG CLINDAMYCIN OTHER: SEE C [address] 4669029( Repository OMED CT) 05/09/2015 DRUG/59168 MEPERIDINE (PF) GI UPSET [facility] 1003([address] [place] D CT) Repository 05/09/2015 DRUG MORPHINE GI UPSET [place] [address] [place] 9937798(SN Repository OMED CT) 05/09/2015 DRUG DIAZEPAM GI UPSET [place] [address] [place] 8040260(SN Repository OMED CT) ENCOUNTERS ENCOUNTERS ADMIT/DISCHARGE ACCOUNT ADMITTING ENCOUNTER LOCATION SOURCE NUMBER CLASS 05/11/2018 [id number] [facility] ing: Repository 05/09/2018/05/10/19 [id number] Ambulatory [address] [place] Repository 04/25/2018/04/26/19 [id number] Ambulatory [address] [place] Repository 04/22/2018/04/25/19 [id number] Ambulatory [address] [place] Repository 04/20/2018/04/26/19 [id number] Ambulatory [address] [place] Repository 04/20/2018/04/21/19 [id number] Ambulatory [address] [place] Repository 04/20/2018/04/20/19 [id number] Ambulatory [address] [place] Repository 04/20/2018/04/21/19 [id number] Ambulatory [address] [place] Repository 04/15/2018/04/18/[id number] ing: Repository 04/11/2018/04/13/20 [id number] Ambulatory [address] [place] Repository 03/28/2018/03/29/20 [id number] Ambulatory [address] [place] Repository 03/25/2018/03/28/20 [id number] Ambulatory [address] [place] Repository 03/25/2018/03/25/20 [id number] Ambulatory [address] [place] Repository 03/14/2018/03/15/20 [id number] Ambulatory [address] [place] Repository 02/28/2018/03/01/20 [id number] Ambulatory [address] [place] Repository 02/25/2018/02/29/20 [id number] Ambulatory [address] [place] Repository 02/25/2018/02/26/20 [id number] Ambulatory [address] [place] Repository 02/14/2018/02/17/20 [id number] Ambulatory [facility] [address] [place] Repository 01/31/2018/02/02/20 [id number] Ambulatory [facility] [address] [place] Repository 01/28/2018/02/01/20 [id number] Ambulatory [facility] [address] [place] Repository 01/28/2018/01/29/20 [id number] Ambulatory [facility] [address] [place] Repository 01/17/2018/01/19/20 [id number] Ambulatory [facility] [address] [place] Repository 01/06/2018/01/21/20 [id number] Ambulatory [facility] [address] [place] Repository 01/04/2018/01/07/20 [id number] Ambulatory [facility] [address] [place] Repository 01/03/2018/01/05/20 [id number] Ambulatory [facility] [address] [place] Repository 01/03/2018/01/05/20 [id number] Ambulatory [facility] [address] [place] Repository 12/31/2017/01/04/20 [id number] Ambulatory [facility] [address] [place] Repository 12/21/2017/12/22/19 [id number] Ambulatory [facility] [address] [place] Repository 12/21/2017/12/23/19 [id number] Ambulatory [facility] [address] [place] Repository 12/06/2017/12/08/19 [id number] Ambulatory [facility] [address] [place] Repository 12/06/2017/12/07/19 [id number] Ambulatory [facility] [address] [place] Repository 12/03/2017/12/07/19 [id number] Ambulatory [facility] [address] [place] Repository 12/03/2017/12/04/19 [id number] Ambulatory [facility] [address] [place] Repository 11/23/2017/11/25/19 [id number] Ambulatory [facility] [address] [place] Repository 11/23/2017/11/25/19 [id number] Ambulatory [facility] [address] [place] Repository 11/23/2017/11/24/19 [id number] Ambulatory [facility] [address] [place] Repository 11/22/2017/11/24/19 [id number] Ambulatory [facility] [address] [place] Repository 11/22/2017/11/24/19 [id number] Ambulatory [facility] [address] [place] Repository 11/08/2017/11/10/19 [id number] Ambulatory [facility] [address] [place] Repository 11/08/2017/11/10/19 [id number] Ambulatory [address] Repository 10/25/2017/10/27/19 [id number] Ambulatory [address] Repository 10/22/2017/10/26/19 [id number] Ambulatory [address] Repository 10/22/2017/10/23/19 [id number] Ambulatory [address] Repository 10/15/2017/10/19/19 [id number] Chente Gómez Inpatient [place] [facility] [address] [place] [address] ing:ZX8Uezn: Repository EW923Arj: 1 10/15/2017 [id number] Chente Gómez Ambulatory BMSBuilding:Swapna Schafer MS.Replaced by [facility] Repository 10/15/2017 [id number] Chente Gómez Ambulatory BMSBuilding:Swapna Schafer MS.Replaced by [facility] Repository 10/15/2017 [id number] Chente Gómez Ambulatory BMSBuilding:Swapna Schafer MS.Replaced by [facility] Repository 10/15/2017 [id number] Chente Gómez Ambulatory BMSBuilding:Swapna Schafer MS.Replaced by [facility] Repository 10/11/2017/10/13/19 [id number] Ambulatory [address] Repository 09/27/2017/09/29/19 [id number] Ambulatory [address] Repository 09/24/2017/09/28/19 [id number] Ambulatory [address] Repository 09/24/2017/09/25/19 [id number] Ambulatory [address] Repository 09/14/2017/09/16/19 [id number] Ambulatory [address] Repository 09/03/2017/09/04/19 [id number] Ambulatory [address] Repository 08/30/2017/09/01/19 [id number] Ambulatory [address] Repository 08/27/2017 [id number] Ambulatory [facility] Repository 08/27/2017/08/31/19 [id number] Ambulatory [address] Repository 08/27/2017/08/28/19 [id number] Ambulatory [address] Repository 08/03/2017 [id number] Ambulatory [place] [facility] ing:MTLAB Repository 08/02/2017/08/04/19 [id number] Ambulatory [facility] [address] [place] Repository 07/30/2017/08/03/19 [id number] Ambulatory [facility] [address] [place] Repository 07/30/2017/07/31/19 [id number] Ambulatory [facility] [address] [place] Repository 07/28/2017/07/29/19 [id number] Ambulatory [facility] [address] [place] Repository 07/28/2017/07/30/19 [id number] Ambulatory [facility] [address] [place] Repository 07/28/2017/07/29/19 [id number] Ambulatory [facility] [address] [place] Repository 07/28/2017/07/29/19 [id number] Ambulatory [facility] [address] [place] Repository 07/19/2017/07/21/19 [id number] Ambulatory [facility] [address] [place] Repository 07/05/2017/07/07/19 [id number] Ambulatory [facility] [address] [place] Repository 07/02/2017/07/03/19 [id number] Ambulatory [facility] [address] [place] Repository 07/02/2017/07/06/19 [id number] Ambulatory [facility] [address] [place] Repository 06/21/2017/06/23/19 [id number] Ambulatory [facility] [address] [place] Repository 06/08/2017/06/09/19 [id number] Ambulatory [facility] [address] [place] Repository 06/07/2017/06/07/19 [id number] Ambulatory [facility] [address] [place] Repository 06/07/2017/06/07/19 [id number] Ambulatory [facility] [address] [place] Repository 05/24/2017/05/25/19 [id number] Ambulatory [facility] [address] [place] Repository PAYERS PAYERS ENCOUNTER GUARANTOR PAYER SUBSCRIBER SOURCE 05/11/2018 Kanu A Primary Kanu A [place] [id number] [address] Insurance:MEDICARE MannDOB: [place] PART [place] [facility] [id number] [address]Fxy: (330) Number: Repository [phone] (HP) [id number] Date:2018-04-01 05/11/2018 Secondary NOT GIVENUNK [place] Insurance:SELF PAY [facility] Number: Effective Repository Date:2018-04-19 04/15/2018 Kan[place] A Primary [place] [id number] [place] Insurance:MEDICARE MannDOB: [place] [facility] [id number] [address]Tel: (330) Number: Repository [phone] () [id number] Date:2018-04-01 04/15/2018 Secondary NOT GIVENUNK [place] Insurance:SELF PAY [facility] Number: Effective Repository Date:2018-04-01 10/15/2017 Kanu A Primary [place] [id number] [place] Insurance:MEDICARE MannDOB: [place] [facility] [id number] [address]Tel: (330) Number: Repository [phone] () [id number] Date:2017-10-15 10/15/2017 Secondary NOT GIVENUNK [place] Insurance:SELF PAY [facility] Number: Effective Repository Date:2017-10-15 10/15/2017 Kanu A Primary [place] [id number] [place] Insurance:MEDICARE MannDOB: [place] [facility] [id number] [address]Tel: (330) Number: Repository [phone] () [id number] Date:2017-10-15 10/15/2017 Secondary NOT GIVENUNK [place] Insurance:SELF PAY [facility] Number: Effective Repository Date:2017-10-15 10/15/2017 Kan[place] A Primary [place] [id number] [place] Insurance:MEDICARE MannDOB: [place] [facility] [id number] [address]Tel: (330) Number: Repository [phone] () [id number] Date:2017-10-15 10/15/2017 Secondary NOT GIVENUNK [place] Insurance:SELF PAY [facility] Number: Effective Repository Date:2017-10-15 10/15/2017 Kanu A Primary [place] A [place] [id number] [place] Insurance:MEDICARE MannDOB: [place] [facility] [id number] [address]Wyt: (330) Number: Repository [phone] () [id number] Date:2017-10-15 10/15/2017 Secondary NOT GIVENUNK [place] Insurance:SELF PAY [facility] Number: Effective Repository Date:2017-10-15 10/15/2017 Kanu A Primary Kanu A [place] [id number] [place] Insurance:MEDICARE MannDOB: [place] [facility] [id number] [address]Ina: (330) Number: Repository [phone] () [id number] Date:2017-10-15 10/15/2017 Secondary NOT GIVENUNK [place] Insurance:SELF PAY [facility] Number: Effective Repository Date:2017-10-15 08/03/2017 Kanu A Primary [place] [id number] [place] Insurance:MEDICARE MannDOB: [place] [facility] [id number] [address]Yny: (330) Number: Repository [phone] () [id number] Date:2017-08-03 08/03/2017 Secondary NOT GIVENUNK [place] Insurance:SELF PAY [facility] Number: Effective Repository Date:2017-08-03
== END 2018-05-19 23:59 ==
LOC: WC 10:20
PROVIDERS: Family Provider Family Medicine; PCP Family Medicine; Visit Provider Family Medicine
DX: E11.622 Type 2 diabetes mellitus with other skin ulcer (principal); L97.812 Non-pressure chronic ulcer of other part of right lower leg with fat layer exposed; R60.0 Localized edema; Z86.718 Personal history of other venous thrombosis and embolism; J45.909 Unspecified asthma, uncomplicated; Z86.711 Personal history of pulmonary embolism; Z85.43 Personal history of malignant neoplasm of ovary; Z79.01 Long term (current) use of anticoagulants; Z79.899 Other long term (current) drug therapy; Z79.84 Long term (current) use of oral hypoglycemic drugs
CPT/HCPCS: 11042; 99213; G0463

== ENCOUNTER 2018-06-01 14:58 | Emergency (ER) | payer MEDICARE, SELFPAY ==
[2018-05-27 15:22] VITALS: BMI 40.8
[2018-06-01 14:59] VITALS: BP 165/83; PULSE 94; RESP 16; TEMP 36.4; O2SAT 99; BMI 39.5
--- NOTE | 2018-06-01 15:58 | RAD_ITS ---
STUDY: X-RAY - LEFT TIBIA AND FIBULA REASON FOR EXAM: Female, 72 years old. Infection the left lower leg getting worse. Cat scratch. TECHNIQUE: Frontal and lateral view(s) of the tibia and fibula were obtained. COMPARISON: 11/14/2017 FINDINGS: There is mild to moderate generalized induration of the subcutaneous fat of the entirety of the lower leg. There is no deep soft tissue gas. Osseous structures unremarkable. Arthroplasty of the knee unremarkable. RAD/Tibia & Fibula 2 Views IMPRESSION: Generalized induration of the subcutaneous soft tissues of the lower leg most likely reflecting edema which could be a manifestation of cellulitis. There is no radiodense foreign body or soft tissue gas and there is no evidence of osteomyelitis. Electronically Signed: Brooks Alvarez MD at 17:32 EST Tel , Service support ,
[2018-06-01 16:00] VITALS: BP 141/78; PULSE 74; RESP 16; TEMP 36.6; O2SAT 99
[2018-06-01] MEDS: 0.9% Normal Saline 1,000 ML 150 ML IV (16:16)
[2018-06-01 16:26] LABS: Absolute Neutrophil Count 5.2 X10^3/uL (2.0-7.7); Basophil# 0.02 X10^3/uL; Basophil% 0.3 % (0-1); Eosinophil# 0.12 X10^3/uL; Eosinophils% 1.8 % (0-5); Lymphocyte % 12.1 % (19-41); Mean Corp Hgb Conc 30.8 g/gl (32-36); Mean Corpuscular Hgb 29.7 pg (27.0-32.0); Mean Corpuscular Volume 96.5 fL (81-99); Mean Platelet Vol. 9.6 fl (6.2-12.0); Monocyte# 0.46 X10^3/uL; Neutrophil % 78.6 % (47-70); Platelet Count 162 K/mm3 (150-450); RBC Distribution Width CV 14.8 % (11.6-14.6); RBC Distribution Width SD 50.2 fl (35.1-43.9); Red Blood Count 4.04 M/mm3 (4.2-5.4); White Blood Count 6.6 K/mm3 (4.4-11.0)
[2018-06-01 16:36] LABS: Anion Gap 8 (5-15); BUN 26 mg/dL (7-18); BUN/Creat Ratio 19.4 RATIO (10-20); Calcium,Total 8.9 mg/dL (8.5-10.1); Chloride 104 mmol/L (98-107); Creatinine, Serum 1.34 mg/dL (0.55-1.02); EST Glomerular Filtration Rate 41 mL/min (>60); Est Glom Filt Rate - Afr Amer 50 mL/min (>60); Estimated Creatinine Clearance 28.64 ml/min; Glucose 130 mg/dL (74-106); POSITIVE COUNT NO; POSITIVE DIFFERENTIAL NO; POSITIVE MORPHOLOGY NO; Potassium 3.9 mmol/L (3.5-5.1); Sodium Level 141 mmol/L (136-145)
[2018-06-01 17:23] VITALS: BP 144/72; PULSE 73; RESP 18; O2SAT 97
--- NOTE | 2018-06-01 18:17 | ED.DCSUM_ITS ---
- ER Visit Summary Date of Service: 06/01/18 Chief Complaint: Cellulitis History of Present Illness: The patient is a 72 F who was scratched by her cat on the left leg on May 27. She was seen at the wound center that day. She was started on Keflex with plan to escalate the antibiotic to Levaquin if she was not improving. She is a history of cat scratch disease in her right leg. Patient reports redness is increasing. She does note serosanguineous drainage. She denies fever or chills. Physical Examination: Vital signs significant for blood pressure 165/83, otherwise unremarkable. Patient sitting upright in bed no acute distress. Heart is regular rate and rhythm. Lung sounds clear. Abdomen is soft nontender. Lower extremity examination reveals a superficial abrasion of the anterior left almeida with surrounding cellulitis. She has chronic venous skin changes. Test Results: CBC was a white count of 6.6 with 78% neutrophils. Chemistry studies significant for a BUN of 26 and creatinine 1.34. Blood cultures were obtained. Left tib-fib x-rays reveal induration of the subcu tissues but no evidence of soft tissue gas. Emergency Department Course and Treatment: Repeat evaluation patient is resting comfortably. She does not want to stay in the hospital. We will escalate her antibiotics to Levaquin. Area of erythema is outlined. She was advised if the area of erythema continues to increase and she will have to return to the hospital for IV antibiotics. She voices understanding and agreement. Treatment Plan: [] Disposition: Discharge Impression: Cellulitis left leg This note was generated with [employer] dictation software. It may contain incorrect words, spelling, and punctuation that were not noted in review of the chart prior to signing ED Disposition - Plan for ED Patient: Disposition: Home or Assisted Living Instructions: ED Infec Skin Cellulitis Prescriptions: levoFLOXacin tablet [Levaquin] 500 mg PO DAILY #9 tablet Additional Instructions: Follow-up with wound center later this week or early next week.
--- NOTE | 2018-06-01 18:20 | DCINST.ED_ITS ---
ED Disposition - Plan for ED Patient: Disposition: Home or Assisted Living Instructions: ED Infec Skin Cellulitis Prescriptions: levoFLOXacin tablet [Levaquin] 500 mg PO DAILY #9 tablet Additional Instructions: Follow-up with wound center later this week or early next week.
[2018-06-01] MEDS: levoFLOXacin 750 MG Tablet 500 MG PO (18:33)
[2018-06-01 18:46] VITALS: BP 154/71; PULSE 69; RESP 18; O2SAT 97
== END 2018-06-01 18:47 | disposition home or self-care (01) ==
PROVIDERS: Emergency Provider Emergency Medicine; Family Provider Family Medicine; PCP Family Medicine
DX: L03.116 Cellulitis of left lower limb (principal); E11.9 Type 2 diabetes mellitus without complications; J45.909 Unspecified asthma, uncomplicated; Z79.84 Long term (current) use of oral hypoglycemic drugs; Z79.899 Other long term (current) drug therapy
CPT/HCPCS: 73590; 80048; 85025; 87040; 96360; 96361; 99284; J7030; A4216

== ENCOUNTER 2018-06-10 14:00 | Outpatient (RCR) | payer MEDICARE, SELFPAY ==
[2018-05-20 01:33] VITALS: BP 155/72; PULSE 89; RESP 18; TEMP 36.2
[2018-05-27 15:22] VITALS: BP 162/82; PULSE 103; RESP 18; TEMP 36.7; BMI 40.8
--- NOTE | 2018-05-27 18:20 | PCM.WC.HP ---
(1) Cellulitis of left lower extremity Status: Acute Current Visit: Yes Code(s): L03.116 - Cellulitis of left lower limb (2) CSD (cat scratch disease) Status: Acute Current Visit: Yes Code(s): A28.1 - Cat-scratch disease (3) Bilateral lower extremity edema Status: Chronic Current Visit: Yes Code(s): R60.0 - Localized edema (4) Type II diabetes mellitus Status: Chronic Current Visit: Yes Qualifiers: Diabetes mellitus penitentiary insulin use: unspecified penitentiary insulin use status Diabetes mellitus complication status: with unspecified complications Qualified Code(s): E11.8 - Type 2 diabetes mellitus with unspecified complications Code(s): E11.9 - Type 2 diabetes mellitus without complications (5) Venous insufficiency Status: Chronic Current Visit: Yes (6) Lymphedema of both lower extremities Status: Chronic Current Visit: Yes Code(s): I89.0 - Lymphedema, not elsewhere classified History of Present Illness Date of Service: 05/27/18 Chief Complaint: Left lower extremity ulcer/cellulitis, chronic lymphedema History of Wound: Ms. 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 She has significant swelling of her bilateral lower extremities and is not able to don compression garments on her own due to decreased mobility and back pain. She has ordered compression stockings that zip up and is going to try and use those. This morning her cat got spooked and clawed her left anterior almeida. She has a h/o cellulitis due to cat scratch in her right lower leg and is concerned that this may happen again. She denies chills, fever or otherwise feeling unwell. Past Medical History Past Medical History: Chronic Problems Bilateral lower extremity edema (Chronic) Lymphedema of both lower extremities (Chronic) Asthma (Chronic) Reported, severity unknown History of DVT (deep vein thrombosis) (Chronic) History of pulmonary embolism (Chronic) Type II diabetes mellitus (Chronic) Cancer of ovary (Chronic) Anemia (Chronic) Venous insufficiency (Chronic) Poor dentition (Chronic) Surgical History: cholecystectomy, hysterectomy - For uterine fibroids, total hip arthroplasty - Right, total knee arthroplasty - Left, - - Surgery for bilateral carpal tunnel syndrome. Resection of ovarian cancer at [facility] in 2016, debridement of the abdominal wall with wound closure by Dr. Garza in June 2015 Allergies/Adverse Reactions: Allergies clindamycin Allergy (Verified 10/15/17 09:50) Other meperidine HCl [From Demerol] Allergy (Verified 10/15/17 09:50) Other Penicillins Allergy (Verified 10/15/17 09:50) Itching adhesive tape Adverse Reaction (Verified 10/15/17 09:50) Other BLISTERS aspirin Adverse Reaction (Verified 10/15/17 09:50) Other diazepam [From Valium] Adverse Reaction (Verified 10/15/17 09:50) Nausea/Vom/Diarrhea egg Adverse Reaction (Verified 10/15/17 09:50) Diarrhea morphine Adverse Reaction (Verified 10/15/17 09:50) Nausea/Vom/Diarrhea sulfamethoxazole [From Bactrim] Adverse Reaction (Verified 10/15/17 09:50) Nausea/Vom/Diarrhea trimethoprim [From Bactrim] Adverse Reaction (Verified 10/15/17 09:50) Nausea/Vom/Diarrhea Home Medications: Ambulatory Orders Medication Instructions Recorded Acetaminophen [Tylenol] 325 mg PO Q6H PRN PRN 05/29/15 Cyanocobalamin [Vitamin B12] 1,000 mcg PO DAILY@0800 05/29/15 Cyclobenzaprine [Flexeril] 10 mg PO QHS 05/29/15 Metformin HCl [Glucophage] 500 mg PO BIDCM 05/29/15 Apixaban [Eliquis] 2.5 mg PO BID 06/12/15 Multivitamin [Daily Multiple 1 tab PO DAILY 06/12/15 Vitamin] Furosemide [Lasix] 40 mg PO BID 07/16/15 Oxycodone [Oxyir] 5 mg PO Q4H PRN PRN #60 tablet 07/20/15 proMETHazine tablet [Phenergan 25 mg PO 4X/DAY PRN PRN #20 tablet 07/20/15 tablet] Albuterol IH (ProAir) [Proair Hfa] 2 puff INHALATION Q6H PRN PRN 05/27/16 Cetirizine HCl [Zyrtec] 10 mg PO PRN PRN 05/27/16 Ondansetron HCl [Zofran] 4 mg PO 4X/DAY PRN PRN 05/27/16 Sumatriptan Succinate [Imitrex] 50 mg PO .X1 PRN 05/27/16 Oxycodone HCl [Oxycodone HCl ER] 15 mg PO BID 12/25/16 Cephalexin [Keflex] 500 mg PO Q8 #15 cap 10/18/17 Doxycycline 100 mg PO BID #10 cap 10/18/17 Ascorbic Acid 1,000 mg PO DAILY 04/01/18 Benadryl 25 mg PO DAILY 04/01/18 Cholecalciferol (VIT D3) [Vitamin 2,000 iu PO DAILY 04/01/18 D3] - Family History Maternal No pertinent history, - - no cancer Paternal No pertinent history Lives: Alone Smoking Status: Never smoker Tobacco Use: Non-smoker Alcohol: None Drugs: None Review of Systems Constitutional: Denies: Chills, Fever, Weight Change Eyes: Denies: Pain, Vision Change HEENT: Denies: Difficulty Hearing, Difficulty Swallowing, Sinus Congestion Cardiovascular: Denies: Chest Pain, Palpitations Respiratory: Denies: Cough, Shortness of Breath Gastrointestinal: Denies: Diarrhea, Nausea, Vomiting Musculoskeletal: Reports: Back Pain Skin: Reports: Skin Changes, Wounds Hematologic/ Lymphatic: Reports: Easy Bruising, Easy Bleeding - Physical Exam Vital Signs Temp Pulse Resp BP 98.0 F 103 H 18 162/82 H 05/27/18 15:22 05/27/18 15:22 05/27/18 15:22 05/27/18 15:22 General: Alert, Oriented x3, Cooperative, No apparent distress HEENT: Atraumatic, Normocephalic Oral: Moist Mucosa Lungs: Clear to auscultation Abdomen: Obese Extremities: Edema Skin: Ulcer/ Wound, - - erythema, surrounding bruising to 4 puncture wounds left anterior almeida Wound Measurements and Assessment WC - Nurse 1 - General Ulcer Measurement Start: 05/27/18 15:22 Freq: Status: Active Protocol: Activity Type Activity Date Activity User E-Sign Co-Sign Detail Recorded Client Recorded Date Recorded By Document 05/27/18 15:22 WI [id number] 05/27/18 15:30 [place] 05/27/18 15:22 Wound Center Nurse 1 [Ulcer Assessment] #2 right medial lower leg -Current Size (cm) - Length 0.1 -Current Size (cm) - Width 0.1 -Current Size (cm) - Depth 0.1 -Total Square Cm 0.01 [Edema Assessment] -Right Calf (cm) 50.6 -Right Ankle (cm) 29.2 -Left Calf (cm) 56.4 -Left Ankle (cm) 32.1 WC - Nurse 2 - General Ulcer CM Notes Start: 05/27/18 15:22 Freq: Status: Active Protocol: Activity Type Activity Date Activity User E-Sign Co-Sign Detail Recorded Client Recorded Date Recorded By Document 05/27/18 16:25 DV [id number] 05/27/18 16:27 DV 05/27/18 16:25 Wound Center Nurse 2 [Procedure/Treatment] #2 right medial lower leg -Time 16:26 -Correct Patient Yes -Correct Side, Site, Position Yes -Procedure Performed No -Wound/Ulcer Outcome Not Healed [See Physician Procedure note for Specifics] Pain Scale: 0-10 Numeric [Pain] -Is Patient Pain Free? Yes Psych/Mental Status: Normal Affect, Appropriate Debridement Note Post-Debridement Measurements/Treatment JACQUELINE - Nurse 2 - General Ulcer CM Notes Start: 05/27/18 15:22 Freq: Status: Active Protocol: Activity Type Activity Date Activity User E-Sign Co-Sign Detail Recorded Client Recorded Date Recorded By Document 05/27/18 16:25 DV [id number] 05/27/18 16:27 DV 05/27/18 16:25 Wound Center Nurse 2 #2 right medial lower leg -Time 16:26 -Correct Patient Yes -Correct Side, Site, Position Yes -Procedure Performed No -Wound/Ulcer Outcome Not Healed Pain Scale: 0-10 Numeric Is Patient Pain Free? Yes Wound debrided: right lower leg Laterality: Right No debridement was completed today - wound is healed - Additional Wound Wound debrided: left anterior lower leg Laterality: Left Operative Diagnosis: no debridement completed as there were no open wounds to debride Assessment/Plan Active Problems CSD (cat scratch disease) (Acute) Bilateral lower extremity edema (Chronic) Cellulitis of left lower extremity (Acute) Lymphedema of both lower extremities (Chronic) Type II diabetes mellitus (Chronic) Venous insufficiency (Chronic) Assessment: Left lower extremity cellulitis and puncture wound due to cat scratch in a patient with diabetes mellitus and bilateral lower extremity edema. left lower extremity cellulitis (mild). Plan: Cindy's wounds and left lower leg were evaluated. Left lower extremity concerning for cellulitis due to warmth, tenderness and erythema. Will start her on keflex and if no improvement will treat with levofloxacin based on previous culture results. Will have her treat the punture wounds with Xeroform and use tubigrip for compression. Change daily. She was advised to elevate lower extremities when seated in bed. Optimal blood sugar control recommended. Increased protein intake encouraged. May benefit from compression pumps if she continues to develop ulcers and edema remains uncontrolled. F/U in 1 week. All her questions were answered and she was advised to call with any further questions or concerns.
--- NOTE | 2018-05-27 18:26 | HP.PCM_ITS ---
(1) Cellulitis of left lower extremity Status: Acute Current Visit: Yes Code(s): L03.116 - Cellulitis of left lower limb (2) CSD (cat scratch disease) Status: Acute Current Visit: Yes Code(s): A28.1 - Cat-scratch disease (3) Bilateral lower extremity edema Status: Chronic Current Visit: Yes Code(s): R60.0 - Localized edema (4) Type II diabetes mellitus Status: Chronic Current Visit: Yes Qualifiers: Diabetes mellitus [facility] insulin use: unspecified [facility] insulin use status Diabetes mellitus complication status: with unspecified complications Qualified Code(s): E11.8 - Type 2 diabetes mellitus with unspecified complications Code(s): E11.9 - Type 2 diabetes mellitus without complications (5) Venous insufficiency Status: Chronic Current Visit: Yes (6) Lymphedema of both lower extremities Status: Chronic Current Visit: Yes Code(s): I89.0 - Lymphedema, not elsewhere classified History of Present Illness Date of Service: 05/27/18 Chief Complaint: Left lower extremity ulcer/cellulitis, chronic lymphedema History of Wound: Ms. 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 She has significant swelling of her bilateral lower extremities and is not able to don compression garments on her own due to decreased mobility and back pain. She has ordered compression stockings that zip up and is going to try and use those. This morning her cat got spooked and clawed her left anterior almeida. She has a h/o cellulitis due to cat scratch in her right lower leg and is concerned that this may happen again. She denies chills, fever or otherwise feeling unwell. Past Medical History Past Medical History: Chronic Problems Bilateral lower extremity edema (Chronic) Lymphedema of both lower extremities (Chronic) Asthma (Chronic) Reported, severity unknown History of DVT (deep vein thrombosis) (Chronic) History of pulmonary embolism (Chronic) Type II diabetes mellitus (Chronic) Cancer of ovary (Chronic) Anemia (Chronic) Venous insufficiency (Chronic) Poor dentition (Chronic) Surgical History: cholecystectomy, hysterectomy - For uterine fibroids, total hip arthroplasty - Right, total knee arthroplasty - Left, - - Surgery for bilateral carpal tunnel syndrome. Resection of ovarian cancer at [facility] in 2016, debridement of the abdominal wall with wound closure by Dr. Garza in June 2015 Allergies/Adverse Reactions: Allergies clindamycin Allergy (Verified 10/15/17 09:50) Other meperidine HCl [From Demerol] Allergy (Verified 10/15/17 09:50) Other Penicillins Allergy (Verified 10/15/17 09:50) Itching adhesive tape Adverse Reaction (Verified 10/15/17 09:50) Other BLISTERS aspirin Adverse Reaction (Verified 10/15/17 09:50) Other diazepam [From Valium] Adverse Reaction (Verified 10/15/17 09:50) Nausea/Vom/Diarrhea egg Adverse Reaction (Verified 10/15/17 09:50) Diarrhea morphine Adverse Reaction (Verified 10/15/17 09:50) Nausea/Vom/Diarrhea sulfamethoxazole [From Bactrim] Adverse Reaction (Verified 10/15/17 09:50) Nausea/Vom/Diarrhea trimethoprim [From Bactrim] Adverse Reaction (Verified 10/15/17 09:50) Nausea/Vom/Diarrhea Home Medications: Ambulatory Orders Medication Instructions Recorded Acetaminophen [Tylenol] 325 mg PO Q6H PRN PRN 05/29/15 Cyanocobalamin [Vitamin B12] 1,000 mcg PO DAILY@0800 05/29/15 Cyclobenzaprine [Flexeril] 10 mg PO QHS 05/29/15 Metformin HCl [Glucophage] 500 mg PO BIDCM 05/29/15 Apixaban [Eliquis] 2.5 mg PO BID 06/12/15 Multivitamin [Daily Multiple 1 tab PO DAILY 06/12/15 Vitamin] Furosemide [Lasix] 40 mg PO BID 07/16/15 Oxycodone [Oxyir] 5 mg PO Q4H PRN PRN #60 tablet 07/20/15 proMETHazine tablet [Phenergan 25 mg PO 4X/DAY PRN PRN #20 tablet 07/20/15 tablet] Albuterol IH (ProAir) [Proair Hfa] 2 puff INHALATION Q6H PRN PRN 05/27/16 Cetirizine HCl [Zyrtec] 10 mg PO PRN PRN 05/27/16 Ondansetron HCl [Zofran] 4 mg PO 4X/DAY PRN PRN 05/27/16 Sumatriptan Succinate [Imitrex] 50 mg PO .X1 PRN 05/27/16 Oxycodone HCl [Oxycodone HCl ER] 15 mg PO BID 12/25/16 Cephalexin [Keflex] 500 mg PO Q8 #15 cap 10/18/17 Doxycycline 100 mg PO BID #10 cap 10/18/17 Ascorbic Acid 1,000 mg PO DAILY 04/01/18 Benadryl 25 mg PO DAILY 04/01/18 Cholecalciferol (VIT D3) [Vitamin 2,000 iu PO DAILY 04/01/18 D3] - Family History Maternal No pertinent history, - - no cancer Paternal No pertinent history Lives: Alone Smoking Status: Never smoker Tobacco Use: Non-smoker Alcohol: None Drugs: None Review of Systems Constitutional: Denies: Chills, Fever, Weight Change Eyes: Denies: Pain, Vision Change HEENT: Denies: Difficulty Hearing, Difficulty Swallowing, Sinus Congestion Cardiovascular: Denies: Chest Pain, Palpitations Respiratory: Denies: Cough, Shortness of Breath Gastrointestinal: Denies: Diarrhea, Nausea, Vomiting Musculoskeletal: Reports: Back Pain Skin: Reports: Skin Changes, Wounds Hematologic/ Lymphatic: Reports: Easy Bruising, Easy Bleeding - Physical Exam Vital Signs Temp Pulse Resp BP 98.0 F 103 H 18 162/82 H 05/27/18 15:22 05/27/18 15:22 05/27/18 15:22 05/27/18 15:22 General: Alert, Oriented x3, Cooperative, No apparent distress HEENT: Atraumatic, Normocephalic Oral: Moist Mucosa Lungs: Clear to auscultation Abdomen: Obese Extremities: Edema Skin: Ulcer/ Wound, - - erythema, surrounding bruising to 4 puncture wounds left anterior almeida Wound Measurements and Assessment WC - Nurse 1 - General Ulcer Measurement Start: 05/27/18 15:22 Freq: Status: Active Protocol: Activity Type Activity Date Activity User E-Sign Co-Sign Detail Recorded Client Recorded Date Recorded By Document 05/27/18 15:22 MD [id number] 05/27/18 15:30 MD 05/27/18 15:22 Wound Center Nurse 1 [Ulcer Assessment] #2 right medial lower leg -Current Size (cm) - Length 0.1 -Current Size (cm) - Width 0.1 -Current Size (cm) - Depth 0.1 -Total Square Cm 0.01 [Edema Assessment] -Right Calf (cm) 50.6 -Right Ankle (cm) 29.2 -Left Calf (cm) 56.4 -Left Ankle (cm) 32.1 WC - Nurse 2 - General Ulcer CM Notes Start: 05/27/18 15:22 Freq: Status: Active Protocol: Activity Type Activity Date Activity User E-Sign Co-Sign Detail Recorded Client Recorded Date Recorded By Document 05/27/18 16:25 DV [id number] 05/27/18 16:27 DV 05/27/18 16:25 Wound Center Nurse 2 [Procedure/Treatment] #2 right medial lower leg -Time 16:26 -Correct Patient Yes -Correct Side, Site, Position Yes -Procedure Performed No -Wound/Ulcer Outcome Not Healed [See Physician Procedure note for Specifics] Pain Scale: 0-10 Numeric [Pain] -Is Patient Pain Free? Yes Psych/Mental Status: Normal Affect, Appropriate Debridement Note Post-Debridement Measurements/Treatment JACQUELINE - Nurse 2 - General Ulcer CM Notes Start: 05/27/18 15:22 Freq: Status: Active Protocol: Activity Type Activity Date Activity User E-Sign Co-Sign Detail Recorded Client Recorded Date Recorded By Document 05/27/18 16:25 DV [id number] 05/27/18 16:27 DV 05/27/18 16:25 Wound Center Nurse 2 #2 right medial lower leg -Time 16:26 -Correct Patient Yes -Correct Side, Site, Position Yes -Procedure Performed No -Wound/Ulcer Outcome Not Healed Pain Scale: 0-10 Numeric Is Patient Pain Free? Yes Wound debrided: right lower leg Laterality: Right No debridement was completed today - wound is healed - Additional Wound Wound debrided: left anterior lower leg Laterality: Left Operative Diagnosis: no debridement completed as there were no open wounds to debride Assessment/Plan Active Problems CSD (cat scratch disease) (Acute) Bilateral lower extremity edema (Chronic) Cellulitis of left lower extremity (Acute) Lymphedema of both lower extremities (Chronic) Type II diabetes mellitus (Chronic) Venous insufficiency (Chronic) Assessment: Left lower extremity cellulitis and puncture wound due to cat scratch in a patient with diabetes mellitus and bilateral lower extremity edema. left lower extremity cellulitis (mild). Plan: Cindy's wounds and left lower leg were evaluated. Left lower extremity concerning for cellulitis due to warmth, tenderness and erythema. Will start her on keflex and if no improvement will treat with levofloxacin based on previous culture results. Will have her treat the punture wounds with Xeroform and use tubigrip for compression. Change daily. She was advised to elevate lower extremities when seated in bed. Optimal blood sugar control recommended. Increased protein intake encouraged. May benefit from compression pumps if she continues to develop ulcers and edema remains uncontrolled. F/U in 1 week. All her questions were answered and she was advised to call with any further questions or concerns.
[2018-06-03 15:18] VITALS: BP 137/69; PULSE 109; RESP 16; TEMP 36.6; BMI 40.8
--- NOTE | 2018-06-03 17:39 | PCM.WC.PN ---
(1) Cellulitis of left lower extremity Status: Acute Current Visit: Yes Code(s): L03.116 - Cellulitis of left lower limb (2) CSD (cat scratch disease) Status: Acute Current Visit: Yes Code(s): A28.1 - Cat-scratch disease (3) Bilateral lower extremity edema Status: Chronic Current Visit: Yes Code(s): R60.0 - Localized edema (4) Type II diabetes mellitus Status: Chronic Current Visit: Yes Qualifiers: Diabetes mellitus nursing home insulin use: unspecified nursing home insulin use status Diabetes mellitus complication status: with unspecified complications Qualified Code(s): E11.8 - Type 2 diabetes mellitus with unspecified complications Code(s): E11.9 - Type 2 diabetes mellitus without complications (5) Venous insufficiency Status: Chronic Current Visit: Yes (6) Lymphedema of both lower extremities Status: Chronic Current Visit: Yes Code(s): I89.0 - Lymphedema, not elsewhere classified Type of Wound Date of Service: 06/03/18 Chief Complaint: Left lower extremity ulcer/cellulitis, chronic lymphedema History of Wound: Ms. 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 She has significant swelling of her bilateral lower extremities and is not able to don compression garments on her own due to decreased mobility and back pain. She has ordered compression stockings that zip up and is going to try and use those. This morning her cat got spooked and clawed her left anterior almeida. She has a h/o cellulitis due to cat scratch in her right lower leg and is concerned that this may happen again. She denies chills, fever or otherwise feeling unwell. Progress of Wound: Cindy is here today in follow up of a left lower leg wound and cellulitis. She was taking keflex as prescribed last week but her cellulitis worsened and she went to the ER on Wednesday and was prescribed Levofloxacin and given a dose of medication IV. No cultures were taken. She has noticed that the erythema has started to recede a little. She is unable to tolerate compression this past week due to pain. She has had resolution of one of the punture wounds from her cats claws but the other is till present and has eschar. She denies any fever or chills or increased drainage. - Physical Exam Vital Signs Temp Pulse Resp BP 98 F 109 H 16 137/69 H 06/03/18 15:18 06/03/18 15:18 06/03/18 15:18 06/03/18 15:18 General: Alert, Oriented x3, Cooperative, No apparent distress HEENT: Atraumatic, Normocephalic Abdomen: Obese Extremities: Edema Skin: Ulcer/ Wound - erythema Wound Measurements and Assessment WC - Nurse 1 - General Ulcer Measurement Start: 05/27/18 15:22 Freq: Status: Active Protocol: Activity Type Activity Date Activity User E-Sign Co-Sign Detail Recorded Client Recorded Date Recorded By Document 06/03/18 15:18 MT [id number] 06/03/18 15:26 MT 06/03/18 15:18 Wound Center Nurse 1 [Ulcer Assessment] #2 right medial lower leg -Combined with other wound No -Current Size (cm) - Length 0.1 -Current Size (cm) - Width 0.1 -Current Size (cm) - Depth 0.1 -Total Square Cm 0.01 -Photo Taken No -Epithelialization Large 67-100% -Tunneling No -Undermining/Tunneling No -Circular Undermining No -Exudate Amt None Present -Texture (Kanwal-wound Skin Appearance) Scarring -Moisture (Kanwal-wound Skin Appearance Dry/Scaly ) -Color (Kanwal-wound Skin Appearance) Erythema -Temperature (Kanwal-wound Skin No Abnormality Appearance) (Pt Warm) -Tenderness on Palpation (Kanwal-wound No Skin Appearance) -Ulcer Cleansing Rinsed/ Irrigated with Saline -Foul Odor after Cleansing No -Anesthetic Used 4% Lidocaine Solution [Edema Assessment] -Lower Limb Edema Present Yes -Right Calf (cm) 48.7 -Right Ankle (cm) 28 -Left Calf (cm) 56 -Left Ankle (cm) 31.5 WC - Nurse 2 - General Ulcer CM Notes Start: 05/27/18 15:22 Freq: Status: Active Protocol: Activity Type Activity Date Activity User E-Sign Co-Sign Detail Recorded Client Recorded Date Recorded By Document 06/03/18 16:47 DV [id number] 06/03/18 16:48 DV 06/03/18 16:47 Wound Center Nurse 2 [Procedure/Treatment] #2 right medial lower leg -Time 16:47 -Correct Patient Yes -Correct Side, Site, Position Yes -Procedure Performed No -Wound/Ulcer Outcome Not Healed [See Physician Procedure note for Specifics] Pain Scale: 0-10 Numeric [Pain] -Is Patient Pain Free? Yes Psych/Mental Status: Normal Affect, Appropriate Debridement Note Post-Debridement Measurements/Treatment WC - Nurse 2 - General Ulcer CM Notes Start: 05/27/18 15:22 Freq: Status: Active Protocol: Activity Type Activity Date Activity User E-Sign Co-Sign Detail Recorded Client Recorded Date Recorded By Document 05/27/18 16:25 DV [id number] 05/27/18 16:27 DV Document 06/03/18 16:47 DV [id number] 06/03/18 16:48 DV 05/27/18 06/03/18 16:25 16:47 Wound Center Nurse 2 #2 right medial lower leg -Time 16:26 16:47 -Correct Patient Yes Yes -Correct Side, Site, Position Yes Yes -Procedure Performed No No -Wound/Ulcer Outcome Not Healed Not Healed Pain Scale: 0-10 Numeric Is Patient Pain Free? Yes Yes Wound debrided: left lower leg Laterality: Left No debridement was completed today - as there is no wound to debride at this time Assessment/Plan Active Problems CSD (cat scratch disease) (Acute) Bilateral lower extremity edema (Chronic) Cellulitis of left lower extremity (Acute) Lymphedema of both lower extremities (Chronic) Type II diabetes mellitus (Chronic) Venous insufficiency (Chronic) Assessment: Left lower extremity cellulitis and puncture wound due to cat scratch in a patient with diabetes mellitus and bilateral lower extremity edema. left lower extremity cellulitis (mild). Plan: Cindy's wounds and left lower leg were evaluated. Left lower extremity concerning for cellulitis due to warmth, tenderness and erythema. Culture of her leg was taken today at the site of the single punture wound that is present and will adjust antibiotics if needed. Will have her continue to treat the puncture wound with Xeroform and use STEFANIA wraps for compression. Change daily. She was advised to elevate lower extremities when seated in bed. Optimal blood sugar control recommended. Increased protein intake encouraged. May benefit from compression pumps if she continues to develop ulcers and edema remains uncontrolled. F/U in 1 week. All her questions were answered and she was advised to call with any further questions or concerns.
--- NOTE | 2018-06-03 17:43 | PN.PCM_ITS ---
(1) Cellulitis of left lower extremity Status: Acute Current Visit: Yes Code(s): L03.116 - Cellulitis of left lower limb (2) CSD (cat scratch disease) Status: Acute Current Visit: Yes Code(s): A28.1 - Cat-scratch disease (3) Bilateral lower extremity edema Status: Chronic Current Visit: Yes Code(s): R60.0 - Localized edema (4) Type II diabetes mellitus Status: Chronic Current Visit: Yes Qualifiers: Diabetes mellitus prison insulin use: unspecified prison insulin use status Diabetes mellitus complication status: with unspecified complications Qualified Code(s): E11.8 - Type 2 diabetes mellitus with unspecified complications Code(s): E11.9 - Type 2 diabetes mellitus without complications (5) Venous insufficiency Status: Chronic Current Visit: Yes (6) Lymphedema of both lower extremities Status: Chronic Current Visit: Yes Code(s): I89.0 - Lymphedema, not elsewhere classified Type of Wound Date of Service: 06/03/18 Chief Complaint: Left lower extremity ulcer/cellulitis, chronic lymphedema History of Wound: Ms. 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 She has significant swelling of her bilateral lower extremities and is not able to don compression garments on her own due to decreased mobility and back pain. She has ordered compression stockings that zip up and is going to try and use those. This morning her cat got spooked and clawed her left anterior almeida. She has a h/o cellulitis due to cat scratch in her right lower leg and is concerned that this may happen again. She denies chills, fever or otherwise feeling unwell. Progress of Wound: Cindy is here today in follow up of a left lower leg wound and cellulitis. She was taking keflex as prescribed last week but her cellulitis worsened and she went to the ER on Wednesday and was prescribed Levofloxacin and given a dose of medication IV. No cultures were taken. She has noticed that the erythema has started to recede a little. She is unable to tolerate compression this past week due to pain. She has had resolution of one of the punture wounds from her cats claws but the other is till present and has eschar. She denies any fever or chills or increased drainage. - Physical Exam Vital Signs Temp Pulse Resp BP 98 F 109 H 16 137/69 H 06/03/18 15:18 06/03/18 15:18 06/03/18 15:18 06/03/18 15:18 General: Alert, Oriented x3, Cooperative, No apparent distress HEENT: Atraumatic, Normocephalic Abdomen: Obese Extremities: Edema Skin: Ulcer/ Wound - erythema Wound Measurements and Assessment WC - Nurse 1 - General Ulcer Measurement Start: 05/27/18 15:22 Freq: Status: Active Protocol: Activity Type Activity Date Activity User E-Sign Co-Sign Detail Recorded Client Recorded Date Recorded By Document 06/03/18 15:18 MT [id number] 06/03/18 15:26 MT 06/03/18 15:18 Wound Center Nurse 1 [Ulcer Assessment] #2 right medial lower leg -Combined with other wound No -Current Size (cm) - Length 0.1 -Current Size (cm) - Width 0.1 -Current Size (cm) - Depth 0.1 -Total Square Cm 0.01 -Photo Taken No -Epithelialization Large 67-100% -Tunneling No -Undermining/Tunneling No -Circular Undermining No -Exudate Amt None Present -Texture (Kanwal-wound Skin Appearance) Scarring -Moisture (Kanwal-wound Skin Appearance Dry/Scaly ) -Color (Kanwal-wound Skin Appearance) Erythema -Temperature (Kanwal-wound Skin No Abnormality Appearance) (Pt Warm) -Tenderness on Palpation (Kanwal-wound No Skin Appearance) -Ulcer Cleansing Rinsed/ Irrigated with Saline -Foul Odor after Cleansing No -Anesthetic Used 4% Lidocaine Solution [Edema Assessment] -Lower Limb Edema Present Yes -Right Calf (cm) 48.7 -Right Ankle (cm) 28 -Left Calf (cm) 56 -Left Ankle (cm) 31.5 WC - Nurse 2 - General Ulcer CM Notes Start: 05/27/18 15:22 Freq: Status: Active Protocol: Activity Type Activity Date Activity User E-Sign Co-Sign Detail Recorded Client Recorded Date Recorded By Document 06/03/18 16:47 DV [id number] 06/03/18 16:48 DV 06/03/18 16:47 Wound Center Nurse 2 [Procedure/Treatment] #2 right medial lower leg -Time 16:47 -Correct Patient Yes -Correct Side, Site, Position Yes -Procedure Performed No -Wound/Ulcer Outcome Not Healed [See Physician Procedure note for Specifics] Pain Scale: 0-10 Numeric [Pain] -Is Patient Pain Free? Yes Psych/Mental Status: Normal Affect, Appropriate Debridement Note Post-Debridement Measurements/Treatment WC - Nurse 2 - General Ulcer CM Notes Start: 05/27/18 15:22 Freq: Status: Active Protocol: Activity Type Activity Date Activity User E-Sign Co-Sign Detail Recorded Client Recorded Date Recorded By Document 05/27/18 16:25 DV [id number] 05/27/18 16:27 DV Document 06/03/18 16:47 DV [id number] 06/03/18 16:48 DV 05/27/18 06/03/18 16:25 16:47 Wound Center Nurse 2 #2 right medial lower leg -Time 16:26 16:47 -Correct Patient Yes Yes -Correct Side, Site, Position Yes Yes -Procedure Performed No No -Wound/Ulcer Outcome Not Healed Not Healed Pain Scale: 0-10 Numeric Is Patient Pain Free? Yes Yes Wound debrided: left lower leg Laterality: Left No debridement was completed today - as there is no wound to debride at this time Assessment/Plan Active Problems CSD (cat scratch disease) (Acute) Bilateral lower extremity edema (Chronic) Cellulitis of left lower extremity (Acute) Lymphedema of both lower extremities (Chronic) Type II diabetes mellitus (Chronic) Venous insufficiency (Chronic) Assessment: Left lower extremity cellulitis and puncture wound due to cat s cratch in a patient with diabetes mellitus and bilateral lower extremity edema. left lower extremity cellulitis (mild). Plan: Cindy's wounds and left lower leg were evaluated. Left lower extremity concerning for cellulitis due to warmth, tenderness and erythema. Culture of her leg was taken today at the site of the single punture wound that is present and will adjust antibiotics if needed. Will have her continue to treat the puncture wound with Xeroform and use STEFANIA wraps for compression. Change daily. She was advised to elevate lower extremities when seated in bed. Optimal blood sugar control recommended. Increased protein intake encouraged. May benefit from compression pumps if she continues to develop ulcers and edema remains uncontrolled. F/U in 1 week. All her questions were answered and she was advised to call with any further questions or concerns.
[2018-06-03 23:53] LABS: M R Staph aureus DNA By PCR Negative (Negative); Probe Check PASS; Specimen Processing Control PASS; Staph aureus DNA By PCR NEGATIVE (Negative)
[2018-06-10 13:53] VITALS: BP 163/76; PULSE 103; RESP 22; TEMP 36.1; BMI 40.8
--- NOTE | 2018-06-10 19:01 | PCM.WC.PN ---
(1) Cellulitis of left lower extremity Status: Acute Current Visit: Yes Code(s): L03.116 - Cellulitis of left lower limb (2) CSD (cat scratch disease) Status: Acute Current Visit: Yes Code(s): A28.1 - Cat-scratch disease (3) Bilateral lower extremity edema Status: Chronic Current Visit: Yes Code(s): R60.0 - Localized edema (4) Type II diabetes mellitus Status: Chronic Current Visit: Yes Qualifiers: Diabetes mellitus half-way insulin use: unspecified half-way insulin use status Diabetes mellitus complication status: with unspecified complications Qualified Code(s): E11.8 - Type 2 diabetes mellitus with unspecified complications Code(s): E11.9 - Type 2 diabetes mellitus without complications (5) Venous insufficiency Status: Chronic Current Visit: Yes (6) Lymphedema of both lower extremities Status: Chronic Current Visit: Yes Code(s): I89.0 - Lymphedema, not elsewhere classified Type of Wound Date of Service: 06/10/18 Chief Complaint: Left lower extremity ulcer/cellulitis, chronic lymphedema History of Wound: Ms. 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 She has significant swelling of her bilateral lower extremities and is not able to don compression garments on her own due to decreased mobility and back pain. She has ordered compression stockings that zip up and is going to try and use those. This morning her cat got spooked and clawed her left anterior almeida. She has a h/o cellulitis due to cat scratch in her right lower leg and is concerned that this may happen again. She denies chills, fever or otherwise feeling unwell. Progress of Wound: Cindy is here today in follow up of a left lower leg wound and cellulitis. She completed Levaquin but still has erythema and pain in her left almeida. Her wound is healed. She had negative wound cultures. She is using STEFANIA wraps for compression. She has chronic problems with lymphedema and is unable to don standard compression stockings due to arthritis in her back and hands. She is also not able to don tubigrips. She has chronic venous ulcers that come and go frequently and is prone to cellulitis with any open wounds of her lower legs. She has never tried compression pumps. She denies any fever or chills or increased drainage. - Physical Exam Vital Signs Temp Pulse Resp BP 96.9 F L 103 H 22 H 163/76 H 06/10/18 13:53 06/10/18 13:53 06/10/18 13:53 06/10/18 13:53 General: Alert, Oriented x3, Cooperative, No apparent distress HEENT: Atraumatic, Normocephalic Oral: Moist Mucosa Abdomen: Obese Extremities: Edema Skin: Ulcer/ Wound Wound Measurements and Assessment WC - Nurse 1 - General Ulcer Measurement Start: 05/27/18 15:22 Freq: Status: Active Protocol: Activity Type Activity Date Activity User E-Sign Co-Sign Detail Recorded Client Recorded Date Recorded By Document 06/10/18 13:53 DL [id number] 06/10/18 14:01 DL 06/10/18 13:53 Wound Center Nurse 1 [Ulcer Assessment] #2 right medial lower leg -Current Size (cm) - Length 0.1 -Current Size (cm) - Width 0.1 -Current Size (cm) - Depth 0.1 -Total Square Cm 0.01 -Photo Taken No -Exudate Amt None Present -Wound Margin Flat & Intact -Granulation Amt Large (67-100%) -Granulation Quality [place] -Necrosis Amt None Present (0 %) -Structure Exposed N/A -Texture (Kanwal-wound Skin Appearance) Scarring -Moisture (Kanwal-wound Skin Appearance Dry/Scaly ) -Color (Kanwal-wound Skin Appearance) Erythema -Temperature (Kanwal-wound Skin No Abnormality Appearance) (Pt Warm) -Tenderness on Palpation (Kanwal-wound No Skin Appearance) -Ulcer Cleansing Rinsed/ Irrigated with Saline -Foul Odor after Cleansing No [Edema Assessment] -Right Calf (cm) 48.1 -Right Ankle (cm) 30.6 -Left Calf (cm) 54 -Left Ankle (cm) 33.4 WC - Nurse 2 - General Ulcer CM Notes Start: 05/27/18 15:22 Freq: Status: Active Protocol: Activity Type Activity Date Activity User E-Sign Co-Sign Detail Recorded Client Recorded Date Recorded By Document 06/10/18 15:45 DV [id number] 06/10/18 15:50 DV 06/10/18 15:45 Wound Center Nurse 2 [Procedure/Treatment] #2 right medial lower leg -Time 15:45 -Correct Patient Yes -Correct Side, Site, Position Yes -Procedure Performed No -Post Debridement Size (cm) - Length 0 -Post Debridement Size (cm) - Width 0 -Post Debridement Size (cm) - Depth 0 -Total Square Cm 0 -Wound/Ulcer Outcome Healed- Epithelialized [See Physician Procedure note for Specifics] Pain Scale: 0-10 Numeric [Pain] -Is Patient Pain Free? Yes Psych/Mental Status: Normal Affect, Appropriate Debridement Note Post-Debridement Measurements/Treatment WC - Nurse 2 - General Ulcer CM Notes Start: 05/27/18 15:22 Freq: Status: Active Protocol: Activity Type Activity Date Activity User E-Sign Co-Sign Detail Recorded Client Recorded Date Recorded By Document 05/27/18 16:25 DV [id number] 05/27/18 16:27 DV Document 06/03/18 16:47 DV [id number] 06/03/18 16:48 DV Document 06/10/18 15:45 DV [id number] 06/10/18 15:50 DV 05/27/18 06/03/18 06/10/18 16:25 16:47 15:45 Wound Center Nurse 2 #2 right medial lower leg -Time 16:26 16:47 15:45 -Correct Patient Yes Yes Yes -Correct Side, Site, Position Yes Yes Yes -Procedure Performed No No No -Post Debridement Size (cm) - Length 0 -Post Debridement Size (cm) - Width 0 -Post Debridement Size (cm) - Depth 0 -Total Square Cm 0 -Wound/Ulcer Outcome Not Healed Not Healed Healed- Epithelialized Pain Scale: 0-10 Numeric Is Patient Pain Free? Yes Yes Yes Wound debrided: right medial lower leg Laterality: Right No debridement was completed today - wound is healed Assessment/Plan Active Problems CSD (cat scratch disease) (Acute) Bilateral lower extremity edema (Chronic) Cellulitis of left lower extremity (Acute) Lymphedema of both lower extremities (Chronic) Type II diabetes mellitus (Chronic) Venous insufficiency (Chronic) Assessment: Left lower extremity cellulitis and puncture wound due to cat scratch in a patient with diabetes mellitus and bilateral lower extremity edema. left lower extremity cellulitis (mild). Plan: Cindy's wounds and left lower leg were evaluated. Left lower extremity still concerning for cellulitis due to warmth, tenderness and erythema. Will extend treatment with levofloxacin for another 7 days. Will have her continue to use STEFANIA wraps for compression. She was advised to elevate lower extremities when seated in bed. Optimal blood sugar control recommended. Increased protein intake encouraged. She would benefit greatly from compression pumps due to frequent ulcers and chronic edema uncontrolled by standard compression therapy. She is unable to don compression stockings due to arthritis and STEFANIA wraps are not managing her edema effectively. She has seen OT in the past for lymphedema and continues to do exercises. She is not a candidate for vascular procedures to treat her chronic lymphedema. F/U in 1 week. All her questions were answered and she was advised to call with any further questions or concerns.
--- NOTE | 2018-06-10 19:06 | PN.PCM_ITS ---
(1) Cellulitis of left lower extremity Status: Acute Current Visit: Yes Code(s): L03.116 - Cellulitis of left lower limb (2) CSD (cat scratch disease) Status: Acute Current Visit: Yes Code(s): A28.1 - Cat-scratch disease (3) Bilateral lower extremity edema Status: Chronic Current Visit: Yes Code(s): R60.0 - Localized edema (4) Type II diabetes mellitus Status: Chronic Current Visit: Yes Qualifiers: Diabetes mellitus senior living insulin use: unspecified senior living insulin use status Diabetes mellitus complication status: with unspecified complications Qualified Code(s): E11.8 - Type 2 diabetes mellitus with unspecified complications Code(s): E11.9 - Type 2 diabetes mellitus without complications (5) Venous insufficiency Status: Chronic Current Visit: Yes (6) Lymphedema of both lower extremities Status: Chronic Current Visit: Yes Code(s): I89.0 - Lymphedema, not elsewhere classified Type of Wound Date of Service: 06/10/18 Chief Complaint: Left lower extremity ulcer/cellulitis, chronic lymphedema History of Wound: Ms. 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 She has significant swelling of her bilateral lower extremities and is not able to don compression garments on her own due to decreased mobility and back pain. She has ordered compression stockings that zip up and is going to try and use those. This morning her cat got spooked and clawed her left anterior almeida. She has a h/o cellulitis due to cat scratch in her right lower leg and is concerned that this may happen again. She denies chills, fever or otherwise feeling unwell. Progress of Wound: Cindy is here today in follow up of a left lower leg wound and cellulitis. She completed Levaquin but still has erythema and pain in her left almeida. Her wound is healed. She had negative wound cultures. She is using STEFANIA wraps for compression. She has chronic problems with lymphedema and is unable to don standard compression stockings due to arthritis in her back and hands. She is also not able to don tubigrips. She has chronic venous ulcers that come and go frequently and is prone to cellulitis with any open wounds of her lower legs. She has never tried compression pumps. She denies any fever or chills or increased drainage. - Physical Exam Vital Signs Temp Pulse Resp BP 96.9 F L 103 H 22 H 163/76 H 06/10/18 13:53 06/10/18 13:53 06/10/18 13:53 06/10/18 13:53 General: Alert, Oriented x3, Cooperative, No apparent distress HEENT: Atraumatic, Normocephalic Oral: Moist Mucosa Abdomen: Obese Extremities: Edema Skin: Ulcer/ Wound Wound Measurements and Assessment WC - Nurse 1 - General Ulcer Measurement Start: 05/27/18 15:22 Freq: Status: Active Protocol: Activity Type Activity Date Activity User E-Sign Co-Sign Detail Recorded Client Recorded Date Recorded By Document 06/10/18 13:53 DL [id number] 06/10/18 14:01 DL 06/10/18 13:53 Wound Center Nurse 1 [Ulcer Assessment] #2 right medial lower leg -Current Size (cm) - Length 0.1 -Current Size (cm) - Width 0.1 -Current Size (cm) - Depth 0.1 -Total Square Cm 0.01 -Photo Taken No -Exudate Amt None Present -Wound Margin Flat & Intact -Granulation Amt Large (67-100%) -Granulation Quality [place] -Necrosis Amt None Present (0 %) -Structure Exposed N/A -Texture (Kanwal-wound Skin Appearance) Scarring -Moisture (Kanwal-wound Skin Appearance Dry/Scaly ) -Color (Kanwal-wound Skin Appearance) Erythema -Temperature (Kanwal-wound Skin No Abnormality Appearance) (Pt Warm) -Tenderness on Palpation (Kanwal-wound No Skin Appearance) -Ulcer Cleansing Rinsed/ Irrigated with Saline -Foul Odor after Cleansing No [Edema Assessment] -Right Calf (cm) 48.1 -Right Ankle (cm) 30.6 -Left Calf (cm) 54 -Left Ankle (cm) 33.4 WC - Nurse 2 - General Ulcer CM Notes Start: 05/27/18 15:22 Freq: Status: Active Protocol: Activity Type Activity Date Activity User E-Sign Co-Sign Detail Recorded Client Recorded Date Recorded By Document 06/10/18 15:45 DV [id number] 06/10/18 15:50 DV 06/10/18 15:45 Wound Center Nurse 2 [Procedure/Treatment] #2 right medial lower leg -Time 15:45 -Correct Patient Yes -Correct Side, Site, Position Yes -Procedure Performed No -Post Debridement Size (cm) - Length 0 -Post Debridement Size (cm) - Width 0 -Post Debridement Size (cm) - Depth 0 -Total Square Cm 0 -Wound/Ulcer Outcome Healed- Epithelialized [See Physician Procedure note for Specifics] Pain Scale: 0-10 Numeric [Pain] -Is Patient Pain Free? Yes Psych/Mental Status: Normal Affect, Appropriate Debridement Note Post-Debridement Measurements/Treatment WC - Nurse 2 - General Ulcer CM Notes Start: 05/27/18 15:22 Freq: Status: Active Protocol: Activity Type Activity Date Activity User E-Sign Co-Sign Detail Recorded Client Recorded Date Recorded By Document 05/27/18 16:25 DV [id number] 05/27/18 16:27 DV Document 06/03/18 16:47 DV [id number] 06/03/18 16:48 DV Document 06/10/18 15:45 DV [id number] 06/10/18 15:50 DV 05/27/18 06/03/18 06/10/18 16:25 16:47 15:45 Wound Center Nurse 2 #2 right medial lower leg -Time 16:26 16:47 15:45 -Correct Patient Yes Yes Yes -Correct Side, Site, Position Yes Yes Yes -Procedure Performed No No No -Post Debridement Size (cm) - Length 0 -Post Debridement Size (cm) - Width 0 -Post Debridement Size (cm) - Depth 0 -Total Square Cm 0 -Wound/Ulcer Outcome Not Healed Not Healed Healed- Epithelialized Pain Scale: 0-10 Numeric Is Patient Pain Free? Yes Yes Yes Wound debrided: right medial lower leg Laterality: Right No debridement was completed today - wound is healed Assessment/Plan Active Problems CSD (cat scratch disease) (Acute) Bilateral lower extremity edema (Chronic) Cellulitis of left lower extremity (Acute) Lymphedema of both lower extremities (Chronic) Type II diabetes mellitus (Chronic) Venous insufficiency (Chronic) Assessment: Left lower extremity cellulitis and puncture wound due to cat scratch in a patient with diabetes mellitus and bilateral lower extremity edema. left lower extremity cellulitis (mild). Plan: Cindy's wounds and left lower leg were evaluated. Left lower extremity still concerning for cellulitis due to warmth, tenderness and erythema. Will extend treatment with levofloxacin for another 7 days. Will have her continue to use STEFANIA wraps for compression. She was advised to elevate lower extremities when seated in bed. Optimal blood sugar control recommended. Increased protein inta ke encouraged. She would benefit greatly from compression pumps due to frequent ulcers and chronic edema uncontrolled by standard compression therapy. She is unable to don compression stockings due to arthritis and STEFANIA wraps are not managing her edema effectively. She has seen OT in the past for lymphedema and continues to do exercises. She is not a candidate for vascular procedures to treat her chronic lymphedema. F/U in 1 week. All her questions were answered and she was advised to call with any further questions or concerns.
== END 2018-06-16 23:59 ==
LOC: WC 14:00
PROVIDERS: Family Provider Family Medicine; PCP Family Medicine; Visit Provider Family Medicine
DX: I87.2 Venous insufficiency (chronic) (peripheral) (principal); I89.0 Lymphedema, not elsewhere classified; E11.9 Type 2 diabetes mellitus without complications; R60.0 Localized edema; Z86.711 Personal history of pulmonary embolism; Z86.718 Personal history of other venous thrombosis and embolism; J45.909 Unspecified asthma, uncomplicated; Z85.43 Personal history of malignant neoplasm of ovary; Z79.01 Long term (current) use of anticoagulants; Z79.84 Long term (current) use of oral hypoglycemic drugs; Z79.899 Other long term (current) drug therapy
CPT/HCPCS: 87070; 87075; 87205; 87640; 99213; 99214; 99215; G0463

== ENCOUNTER 2018-06-17 14:04 | Outpatient (RCR) | payer MEDICARE, SELFPAY ==
[2018-06-17 01:14] VITALS: BP 163/76; PULSE 103; RESP 22; TEMP 36.1
[2018-06-17 14:13] VITALS: BP 149/77; PULSE 109; RESP 16; TEMP 36.2; BMI 40.8
--- NOTE | 2018-06-17 18:44 | PCM.WC.PN ---
(1) Cellulitis of left lower extremity Status: Acute Current Visit: Yes Code(s): L03.116 - Cellulitis of left lower limb (2) Lymphedema of both lower extremities Status: Chronic Current Visit: Yes Code(s): I89.0 - Lymphedema, not elsewhere classified Type of Wound Date of Service: 06/17/18 Chief Complaint: Left lower extremity ulcer/cellulitis, chronic lymphedema History of Wound: Ms. 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 She has significant swelling of her bilateral lower extremities and is not able to don compression garments on her own due to decreased mobility and back pain. She has ordered compression stockings that zip up and is going to try and use those. This morning her cat got spooked and clawed her left anterior almeida. She has a h/o cellulitis due to cat scratch in her right lower leg and is concerned that this may happen again. She denies chills, fever or otherwise feeling unwell. Progress of Wound: Cindy is here today in follow up of a left lower leg wound and cellulitis. She completed second course of Levaquin and has had resolution of erythema and warmth of left lower leg. Her wound is healed. She is using STEFANIA wraps for compression. She has chronic problems with lymphedema and is unable to don standard compression stockings due to arthritis in her back and hands. She is also not able to don tubigrips. She has chronic venous ulcers that come and go frequently and is prone to cellulitis with any open wounds of her lower legs. She has never tried compression pumps. She denies any fever or chills or increased drainage. - Physical Exam Vital Signs Temp Pulse Resp BP 97.1 F L 109 H 16 149/77 H 06/17/18 14:13 06/17/18 14:13 06/17/18 14:13 06/17/18 14:13 General: Alert, Oriented x3, Cooperative, No apparent distress HEENT: Atraumatic, Normocephalic Oral: Moist Mucosa Abdomen: Obese Extremities: Edema Skin: Ulcer/ Wound Wound Measurements and Assessment WC - Nurse 1 - General Ulcer Measurement Start: 06/17/18 14:13 Freq: Status: Active Protocol: Activity Type Activity Date Activity User E-Sign Co-Sign Detail Recorded Client Recorded Date Recorded By Document 06/17/18 14:13 [facility] [id number] 06/17/18 14:29 [facility] 06/17/18 14:13 Wound Center Nurse 1 [Ulcer Assessment] #2 right medial lower leg -Combined with other wound No -Current Size (cm) - Length 0 -Current Size (cm) - Width 0 -Current Size (cm) - Depth 0 -Total Square Cm 0 -Date of Last Picture (Recall this 06/17/18 field) -Photo Taken Yes -Epithelialization Large 67-100% -Structure Exposed N/A -Texture (Kanwal-wound Skin Appearance) Scarring -Moisture (Kanwal-wound Skin Appearance Dry/Scaly ) -Color (Kanwal-wound Skin Appearance) Erythema -Temperature (Kanwal-wound Skin No Abnormality Appearance) (Pt Warm) -Tenderness on Palpation (Kanwal-wound No Skin Appearance) -Ulcer Cleansing Wound Cleanser [Edema Assessment] -Lower Limb Edema Present Yes -Right Calf (cm) 48.4 -Right Ankle (cm) 28.1 -Left Calf (cm) 55.5 -Left Ankle (cm) 31.6 WC - Nurse 2 - General Ulcer CM Notes Start: 06/17/18 14:13 Freq: Status: Active Protocol: Activity Type Activity Date Activity User E-Sign Co-Sign Detail Recorded Client Recorded Date Recorded By Document 06/17/18 15:27 [id number] 06/17/18 15:29 DV 06/17/18 15:27 Wound Center Nurse 2 [Procedure/Treatment] #2 right medial lower leg -Time 15:27 -Correct Patient Yes -Correct Side, Site, Position Yes -Procedure Performed No -Post Debridement Size (cm) - Length 0 -Post Debridement Size (cm) - Width 0 -Post Debridement Size (cm) - Depth 0 -Total Square Cm 0 -Wound/Ulcer Outcome Healed- Epithelialized [See Physician Procedure note for Specifics] Pain Scale: 0-10 Numeric [Pain] -Is Patient Pain Free? Yes Psych/Mental Status: Normal Affect, Appropriate Debridement Note Post-Debridement Measurements/Treatment WC - Nurse 2 - General Ulcer CM Notes Start: 06/17/18 14:13 Freq: Status: Active Protocol: Activity Type Activity Date Activity User E-Sign Co-Sign Detail Recorded Client Recorded Date Recorded By Document 06/17/18 15:27 DV [id number] 06/17/18 15:29 DV 06/17/18 15:27 Wound Center Nurse 2 #2 right medial lower leg -Time 15:27 -Correct Patient Yes -Correct Side, Site, Position Yes -Procedure Performed No -Post Debridement Size (cm) - Length 0 -Post Debridement Size (cm) - Width 0 -Post Debridement Size (cm) - Depth 0 -Total Square Cm 0 -Wound/Ulcer Outcome Healed- Epithelialized Pain Scale: 0-10 Numeric Is Patient Pain Free? Yes No debridement was completed today - her wounds are healed Assessment/Plan Active Problems Cellulitis of left lower extremity (Acute) Lymphedema of both lower extremities (Chronic) Assessment: Left lower extremity cellulitis and puncture wound due to cat scratch in a patient with diabetes mellitus and bilateral lower extremity edema. left lower extremity cellulitis (mild). Plan: Cindy's wounds and left lower leg were evaluated. Her cellulitis is resolved. Will have her continue to use TSEFANIA wraps for compression. She was advised to elevate lower extremities when seated in bed. Optimal blood sugar control recommended. Increased protein intake encouraged. She would benefit greatly from compression pumps due to frequent ulcers and chronic edema uncontrolled by standard compression therapy. She is unable to don compression stockings due to arthritis and STEFANIA wraps are not managing her edema effectively. She has seen OT in the past for lymphedema and continues to do exercises. She is not a candidate for vascular procedures to treat her chronic lymphedema. F/U as needed. She will be discharged from wound care treatment at this time. All her questions were answered and she was advised to call with any further questions or concerns.
--- NOTE | 2018-06-17 18:47 | PN.PCM_ITS ---
(1) Cellulitis of left lower extremity Status: Acute Current Visit: Yes Code(s): L03.116 - Cellulitis of left lower limb (2) Lymphedema of both lower extremities Status: Chronic Current Visit: Yes Code(s): I89.0 - Lymphedema, not elsewhere classified Type of Wound Date of Service: 06/17/18 Chief Complaint: Left lower extremity ulcer/cellulitis, chronic lymphedema History of Wound: Ms. 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 She has significant swelling of her bilateral lower extremities and is not able to don compression garments on her own due to decreased mobility and back pain. She has ordered compression stockings that zip up and is going to try and use those. This morning her cat got spooked and clawed her left anterior almeida. She has a h/o cellulitis due to cat scratch in her right lower leg and is concerned that this may happen again. She denies chills, fever or otherwise feeling unwell. Progress of Wound: Cindy is here today in follow up of a left lower leg wound and cellulitis. She completed second course of Levaquin and has had resolution o f erythema and warmth of left lower leg. Her wound is healed. She is using STEFANIA wraps for compression. She has chronic problems with lymphedema and is unable to don standard compression stockings due to arthritis in her back and hands. She is also not able to don tubigrips. She has chronic venous ulcers that come and go frequently and is prone to cellulitis with any open wounds of her lower legs. She has never tried compression pumps. She denies any fever or chills or increased drainage. - Physical Exam Vital Signs Temp Pulse Resp BP 97.1 F L 109 H 16 149/77 H 06/17/18 14:13 06/17/18 14:13 06/17/18 14:13 06/17/18 14:13 General: Alert, Oriented x3, Cooperative, No apparent distress HEENT: Atraumatic, Normocephalic Oral: Moist Mucosa Abdomen: Obese Extremities: Edema Skin: Ulcer/ Wound Wound Measurements and Assessment WC - Nurse 1 - General Ulcer Measurement Start: 06/17/18 14:13 Freq: Status: Active Protocol: Activity Type Activity Date Activity User E-Sign Co-Sign Detail Recorded Client Recorded Date Recorded By Document 06/17/18 14:13 [facility] [id number] 06/17/18 14:29 [facility] 06/17/18 14:13 Wound Center Nurse 1 [Ulcer Assessment] #2 right medial lower leg -Combined with other wound No -Current Size (cm) - Length 0 -Current Size (cm) - Width 0 -Current Size (cm) - Depth 0 -Total Square Cm 0 -Date of Last Picture (Recall this 06/17/18 field) -Photo Taken Yes -Epithelialization Large 67-100% -Structure Exposed N/A -Texture (Aknwal-wound Skin Appearance) Scarring -Moisture (Kanwal-wound Skin Appearance Dry/Scaly ) -Color (Kanwal-wound Skin Appearance) Erythema -Temperature (Kanwal-wound Skin No Abnormality Appearance) (Pt Warm) -Tenderness on Palpation (Kanwal-wound No Skin Appearance) -Ulcer Cleansing Wound Cleanser [Edema Assessment] -Lower Limb Edema Present Yes -Right Calf (cm) 48.4 -Right Ankle (cm) 28.1 -Left Calf (cm) 55.5 -Left Ankle (cm) 31.6 WC - Nurse 2 - General Ulcer CM Notes Start: 06/17/18 14:13 Freq: Status: Active Protocol: Activity Type Activity Date Activity User E-Sign Co-Sign Detail Recorded Client Recorded Date Recorded By Document 06/17/18 15:27 [id number] 06/17/18 15:29 DV 06/17/18 15:27 Wound Center Nurse 2 [Procedure/Treatment] #2 right medial lower leg -Time 15:27 -Correct Patient Yes -Correct Side, Site, Position Yes -Procedure Performed No -Post Debridement Size (cm) - Length 0 -Post Debridement Size (cm) - Width 0 -Post Debridement Size (cm) - Depth 0 -Total Square Cm 0 -Wound/Ulcer Outcome Healed- Epithelialized [See Physician Procedure note for Specifics] Pain Scale: 0-10 Numeric [Pain] -Is Patient Pain Free? Yes Psych/Mental Status: Normal Affect, Appropriate Debridement Note Post-Debridement Measurements/Treatment WC - Nurse 2 - General Ulcer CM Notes Start: 06/17/18 14:13 Freq: Status: Active Protocol: Activity Type Activity Date Activity User E-Sign Co-Sign Detail Recorded Client Recorded Date Recorded By Document 06/17/18 15:27 DV [id number] 06/17/18 15:29 DV 06/17/18 15:27 Wound Center Nurse 2 #2 right medial lower leg -Time 15:27 -Correct Patient Yes -Correct Side, Site, Position Yes -Procedure Performed No -Post Debridement Size (cm) - Length 0 -Post Debridement Size (cm) - Width 0 -Post Debridement Size (cm) - Depth 0 -Total Square Cm 0 -Wound/Ulcer Outcome Healed- Epithelialized Pain Scale: 0-10 Numeric Is Patient Pain Free? Yes No debridement was completed today - her wounds are healed Assessment/Plan Active Problems Cellulitis of left lower extremity (Acute) Lymphedema of both lower extremities (Chronic) Assessment: Left lower extremity cellulitis and puncture wound due to cat scratch in a patient with diabetes mellitus and bilateral lower extremity edema. left lower extremity cellulitis (mild). Plan: Cindy's wounds and left lower leg were evaluated. Her cellulitis is resolved. Will have her continue to use STEFANIA wraps for compression. She was advised to elevate lower extremities when seated in bed. Optimal blood sugar control recommended. Increased protein intake encouraged. She would benefit greatly from compression pumps due to frequent ulcers and chronic edema uncontrolled by standard compression therapy. She is unable to don compression stockings due to arthritis and STEFANIA wraps are not managing her edema effectively. She has seen OT in the past for lymphedema and continues to do exercises. She is not a candidate for vascular procedures to treat her chronic lymphedema. F/U as needed. She will be discharged from wound care treatment at this time. All her questions were answered and she was advised to call with any further questions or concerns.
== END 2018-07-17 23:59 ==
LOC: WC 14:04
PROVIDERS: Family Provider Family Medicine; PCP Family Medicine; Visit Provider Family Medicine
DX: I89.0 Lymphedema, not elsewhere classified (principal); L03.116 Cellulitis of left lower limb; E11.9 Type 2 diabetes mellitus without complications; Z79.01 Long term (current) use of anticoagulants; Z86.711 Personal history of pulmonary embolism; Z86.718 Personal history of other venous thrombosis and embolism; J45.909 Unspecified asthma, uncomplicated
CPT/HCPCS: 99213; G0463

== ENCOUNTER 2018-08-17 23:18 | Emergency (ER) | payer MEDICARE, SELFPAY ==
[2018-08-17 23:18] VITALS: BP 158/77; PULSE 92; RESP 16; TEMP 36.6; O2SAT 98; BMI 41.5
--- NOTE | 2018-08-17 23:39 | RAD_ITS ---
HISTORY: right shoulder/scapula pain after fall COMPARISON: None FINDINGS: XR right shoulder 4 views No fracture or dislocation. Abnormal narrowing of the subacromial-humeral space in keeping with underlying rotator cuff disease. Degenerative arthritis with narrowing of the right AC joint. No soft tissue calcifications seen. RAD/Shoulder min 2 Views IMPRESSION: 1. No fracture or acute osseous abnormality. 2. Chronic changes, as above. at 0141 Reported and signed by: Syd Vera MD Electronically Signed: Syd Vera, at 1:40 EDT Tel , Service support ,
--- NOTE | 2018-08-17 23:39 | RAD_ITS ---
HISTORY: right knee pain after fall COMPARISON: Right tibia and fibula 10/15/2017 FINDINGS: XR right knee 3 views No fracture, dislocation, or acute osseous abnormality. Degenerative osteoarthritis with moderate narrowing of the tibiofemoral medial compartment accompanied by subchondral sclerosis, subchondral cyst formation, and mild marginal spurring. Additional mild narrowing of the patellofemoral joint and lateral joint space compartment. Atherosclerotic calcifications. Probable small suprapatellar effusion. RAD/Knee 3 Views IMPRESSION: 1. No fracture or acute osseous abnormality. 2. Right knee 3 compartment degenerative arthritis with advanced disease with medial compartment. Probable small effusion. at 0028 Reported and signed by: Syd Vera MD Electronically Signed: Syd Vera, at 0:27 EDT Tel , Service support ,
--- NOTE | 2018-08-17 23:40 | RAD_ITS ---
HISTORY: left shoulder/scapular pain after fall COMPARISON: None FINDINGS: XR left shoulder 4 views No fracture or dislocation. The left glenohumeral relationship appears normal. [address] at the left humeral head. The left AC joint appears preserved. RAD/Shoulder min 2 Views IMPRESSION: 1. No fracture or acute osseous abnormality. 2. Left humeral head surgical anchors in place. at 0138 Reported and signed by: Syd Vera MD Electronically Signed: Syd Vera, at 1:37 EDT Tel , Service support ,
--- NOTE | 2018-08-17 23:50 | RAD_ITS ---
HISTORY: right hip pain after fall COMPARISON: CT abdomen and pelvis 06/12/2015 FINDINGS: XR AP pelvis and right hip 3 views Generalized bony demineralization consistent with the patient's age. No fracture or acute osseous abnormality. Right total hip prosthesis in place and the prosthetic components appear in good position. No dislocation or prosthetic loosening seen. The left hip joint and SI joints appear preserved. Multiple pelvic phleboliths. Surgical clips within the pelvis and left lower quadrant. Degenerative spondylosis of the lower lumbar spine. RAD/HIP, UNI W/ Pelvis 2-3 Views IMPRESSION: 1. No fracture or acute osseous abnormality. 2. Right total hip prosthesis. No complication seen. at 0024 Reported and signed by: Syd Vera MD Electronically Signed: Syd Vera, at 0:23 EDT Tel , Service support ,
--- NOTE | 2018-08-18 00:05 | ED.DCSUM_ITS ---
- ER Visit Summary Date of Service: 08/18/18 Chief Complaint: Fall with head injury History of Present Illness: The patient is a 72 F who was walking tonight on her way to the bathroom when her right knee buckled and she fell backwards. She struck the back of her head on the table. She struck her right posterior shoulder on a dog cage. She also notes pain in the left posterior shoulder. She also notes pain in the right hip and right knee. No loss of consciousness. She is on Eliquis. Physical Examination: Afebrile vital signs are stable Gen: Well-nourished well-developed Head: Normocephalic occipital hematoma Eyes: Perrl EOMI ENT: TMs clear no rhinorrhea moist mucous membranes Neck: Supple no lymphadenopathy no JVD nontender CVS: Regular rate rhythm no murmurs normal S1-S2 Respiratory: No distress clear to auscultation bilaterally chest nontender Abdomen: Soft nontender nondistended normal bowel sounds no masses Back: Tender palpation of the bilateral posterior shoulder and scapula Extremity: Tender palpation of the right hip and right knee no edema Skin: Normal color no rash Neuro: alert orientated ?3 CN II-XII intact normal strength sensation reflexes gait cerebellar Psych: Normal affect normal mood Test Results: CT brain, x-rays of the bilateral shoulder and scapula, right hip and pelvis and right knee were obtained. These were negative for fracture. Noted hematoma on the head CT. Emergency Department Course and Treatment: Patient declined pain medication. She had taken oxycodone before arrival. She has a walker that she has at home that she can use for support. She will follow-up return if worsening or concerns Impression: 1. Occipital scalp hematoma 2. Right hip contusion 3. Bilateral shoulder contusion 4. Osteoarthritis right knee This note was generated with [employer] dictation software. It may contain incorrect words, spelling, and punctuation that were not noted in review of the chart prior to signing ED Disposition - Plan for ED Patient: Disposition: Home or Assisted Living Instructions: ED Hematoma, Understanding Traumatic Brain Injury, ED Head Injury Closed Referrals: Chente Daigle MD [Primary Care Provider] - As Needed
[2018-08-18 01:17] VITALS: BP 139/77; PULSE 92; RESP 16; O2SAT 96
--- NOTE | 2018-08-18 23:39 | CT_ITS ---
HISTORY: FELL AND HIT BACK OF HEAD ON A TABLE,DENIES LOC,PT TAKES BLOOD THINNERSHX:ASTHMA,HTN,DIABETES,OVARIAN CANCER,MELANOMA WITH METS EXAMINATION: CT Head or Brain W/O Contrast TECHNIQUE: Multiple axial images were obtained of the brain without intravenous contrast. A radiation dose optimization technique was used for this scan. IV Contrast dosage and agent: None. COMPARISON: None FINDINGS: Normal ventricles. Age appropriate cerebral cortical atrophy. Symmetrical basal ganglia calcifications compatible with benign physiologic change. No intracranial mass, intracranial hemorrhage, or acute intracranial abnormality. Posterior fossa structures are unremarkable. No suspicious extra-axial fluid collection. The calvarium appears intact. Hyperostosis frontalis interna. As visualized, the mastoids and paranasal sinuses appear clear. Posterior left parietal subgaleal scalp hematoma. No associated febrile fracture. CT/Brain/Head without Contrast IMPRESSION: 1. Negative for intracranial hemorrhage or acute intracranial disease. 2. Age-appropriate cerebral cortical atrophy. 3. Posterior left parietal subgaleal scalp hematoma. No calvarial fracture. Individualized dose optimization techniques were used for this CT. at 0035 Reported and signed by: Syd Vera MD Electronically Signed: Syd Vera, at 0:34 EDT Tel , Service support ,
== END 2018-08-18 01:17 | disposition home or self-care (01) ==
PROVIDERS: Emergency Provider Emergency Medicine; Family Provider Family Medicine; PCP Family Medicine
DX: S00.03XA Contusion of scalp, initial encounter (principal); S70.01XA Contusion of right hip, initial encounter; S40.012A Contusion of left shoulder, initial encounter; S40.011A Contusion of right shoulder, initial encounter; M17.11 Unilateral primary osteoarthritis, right knee; W19.XXXA Unspecified fall, initial encounter; Y93.01 Activity, walking, marching and hiking; Y92.9 Unspecified place or not applicable; E66.9 Obesity, unspecified; J45.909 Unspecified asthma, uncomplicated; E11.9 Type 2 diabetes mellitus without complications; Z86.711 Personal history of pulmonary embolism; Z79.01 Long term (current) use of anticoagulants; Z79.84 Long term (current) use of oral hypoglycemic drugs; Z79.899 Other long term (current) drug therapy
CPT/HCPCS: 70450; 73030; 73502; 73562; 99284

== ENCOUNTER 2019-01-09 12:27 | Day surgery (SDC) | payer MEDICARE, SELFPAY ==
--- NOTE | 2019-01-07 17:07 | HP.PCM_ITS ---
History and Physical Date of Admission: 01/09/19 HISTORY AND PHYSICAL ? Cindy Keys 1945 ? REFERRING PHYSICIAN: ??Isidro Estevez, DO ? CHIEF COMPLAINT: ??ostomy options ? HPI: The patient is a 72 year old female referred for concerns with a parastomal hernia and abdominal discomfort/pain. ? The patient has a complicated past ,medical and surgical history. ?The patient had a history of vaginal melanoma. ?The patient was referred to me in November 2016 with complaints of lower abdominal pain, blood and clots per rectum along w ith vaginal bleeding. ? ? The patient had a history of a left (?) ovarian tumor which at the time extended to the lateral abdominal/pelvic wall. ???She underwent resection , May 03, 2015. 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 ?Negative lymph nodes.-T2 N0 She was receiving chemotherapy for that abnormality. ??She also apparently had a nonhealing abdominal wall ulcer for which on July 18 2015. ?She underwent excision and multilayer repair for this defect. ?I do not have records of these procedures. ? She also had a distant history of a DVT and pulmonary saddle embolus for which she be maintained on anticoagulation at the time Eliquis. ?She has significant left sided lower extremity lymphedema - and has been admitted for skin breakdown. ?Lower extremity cellulitis on multiple occasions. ? I performed colonoscopy on December 28, 2016. ?A posterior rectal mass was identified and this was biopsied. ?This returned as melanoma. ?The patient was transferred to [facility]. ???The patient was offered pelvic exenteration, which she declined. ?A loop colostomy was performed, ?I understand by Dr. Reji Sunshine. ? She has not developed a parastomal hernia. ?[facility] was [facility] who recommended against parastomal hernia repair and the fact that she has not any trouble instructions. ?She does note discomfort and issues having the pouch stick. ? Follow-up CT scan seems to indicate shrinkage of the tumor. ?This is somewhat challenged by a right hip replacement, which partially obscures the pelvis. ?Review of MRI from earlier in the year still seems to demonstrate a significant bulky tumor in the pelvis. ? The patient was referred to me?last year?for question of whether he would be appropriate for colostomy takedown and for possible consideration of surgical repair of her parastomal hernia. ?My opinion was that repair of her parastomal hernia and colostomy takedown would not be appropriate given her failure to clear her pelvis of disease. ? More recently, the patient noted increased mucus and somewhat pink?or blood- tinged mucus from her rectal area. ?CT scan from July was stable or slightly improved but evaluation of the pelvic areas challenged due to a?right hip prosthesis ? PAST?MEDICAL?HISTORY PAST MEDICAL HISTORY Diagnosis Date ? Arthritis ? ? Asthma ? ? DVT, lower extremity (HCC) 04/19/15 ? LLE DVT, while on Eliquis ? 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 Obesity ? ? Pulmonary embolism (HCC) 07/2013 ? Type 2 diabetes mellitus (HCC) ~1999 ? Insulin requiring ? Vaginal melanoma (HCC) 12/2016 ? on opdivo (chemo)- currently ? ? PAST?SURGICAL?HISTORY PAST SURGICAL HISTORY Procedure Laterality Date ? CHOLECYSTECTOMY HX ? ~2002 ? COLONOSCOPY W/BX ? 12/28/2016 ? low rectal mass ? EXPLORATORY LAPAROTOMY, CELIOTOMY-SP ? 2016 ? obstructing pelvic mass, unresectable, diverting loop colostomy ? EXPLORATORY OF ABDOMEN ? 05/03/2015 ? exploratory laparotomy and bilateral salpingo-oophorectomy ? HIP SURGERY HX Right ~2005 ? Hip replacement ? HYSTERECTOMY HX ? ? ? KNEE SCOPE,DIAGNOSTIC Right ? ? Arthroscopy, knee ? REVISE MEDIAN N/CARPAL TUNNEL SURG ? ? ? Bilateral carpal tunnel decomp ? SHOULDER SURGERY HX Left ? ? Shoulder ? TOTAL KNEE REPLACEMENT Left ~2005 ? Knee replacement ? ? CURRENT?MEDICATIONS ? Current Outpatient Medications: LORazepam (ATIVAN) 0.5 mg tab Take 0.5 mg by mouth every 6 hours as needed (TAKE 1/2 TO 1 TAB EVERY 6 HOURS NEEDED FOR NAUSEA). ondansetron (ZOFRAN) 8 mg tablet Take 1 tablet by mouth every 8 hours as needed. nivolumab (OPDIVO) 240 mg/24 mL injection Inject 240 mg intravenously every 2 weeks. promethazine (PHENERGAN) 25 mg tablet Take 1 tablet by mouth every 6 hours as needed. FOR NAUSEA diphenhydrAMINE (BENADRYL ALLERGY) 25 mg tablet Take 25 mg by mouth twice daily. cholecalciferol (VITAMIN D-3) 2,000 unit tablet Take 2,000 Units by mouth once daily. apixaban (ELIQUIS) 5 mg tab tab(s) 1 tablet twice daily. Take 1/2 tablet by mouth twice daily. (Patient taking differently: Take 2.5 mg by mouth twice daily. ) furosemide (LASIX) 40 mg tablet Take 40 mg by mouth twice daily. Ascorbic Acid (VITAMIN C) 1,000 mg tablet Take 1,000 mg by mouth once daily. metFORMIN (GLUCOPHAGE) 500 mg tablet Take 1/2 tablet by mouth twice daily. Cyanocobalamin (VITAMIN B-12) 250 mcg tab Take 1 tablet by mouth once daily. cyclobenzaprine (FLEXERIL) 10 mg tablet Take 10 mg by mouth daily at bedtime. cetirizine (ZYRTEC) 10 mg tablet Take 10 mg by mouth once daily. acetaminophen (TYLENOL) 325 mg tablet Take 325 mg by mouth every 6 hours as needed for Pain or Fever. albuterol HFA (PROVENTIL HFA, VENTOLIN HFA) 90 mcg/actuation inhaler Inhale 2 Puffs as instructed four times daily as needed for Wheezing/Shortness of Breath. oxyCODONE (ROXICODONE) 15 mg immediate release tablet Take 15 mg by mouth every 12 hours for 30 days.Earliest Fill Date: 06/20/18 oxyCODONE IR (ROXICODONE) 5 mg immediate release tablet Take 1-2 tablets by mouth every 4 hours as needed for up to 7 days.Earliest Fill Date: 06/20/18 ? No current facility-administered medications for this visit.? ? ALLERGIES:?Asa [Aspirin]; Clindamycin; Demerol [Meperidine (Pf)]; Iodine; Methadone; Morphine; Penicillin; Valium [Diazepam] ? PERSONAL HISTORY:? SOCIAL?HISTORY Social History ??Socioeconomic History ?Marital status: ?Spouse name: Not on file ?Number of children: Not on file ?Years of education: Not on file ?Highest education level: Not on file ??Occupational History ?Not on file ??Social Needs ?Financial resource strain: Not on file ?Food insecurity: ?Worry: Not on file ?Inability: Not on file ?Transportation needs: ?Medical: Not on file ?Non-medical: Not on file ??Tobacco Use ?Smoking status: Never Smoker ?Smokeless tobacco: Never Used ??Substance and Sexual Activity ?Alcohol use: No ?Drug use: No ?Sexual activity: Not on file ?Comment: Patient was not asked ??Lifestyle ?Physical activity: ?Days per week: Not on file ?Minutes per session: Not on file ?Stress: Not on file ??Relationships ?Social connections: ?Talks on phone: Not on file ?Gets together: Not on file ?Attends oriental orthodox service: Not on file ?Active member of club or organization: Not on file ?Attends meetings of clubs or organizations: Not on file ?Relationship status: Not on file ?Intimate partner violence: ?Fear of current or ex partner: Not on file ?Emotionally abused: Not on file ?Physically abused: Not on file ?Forced sexual activity: Not on file ??Other Topics ?Concerns: ?Not on file ??Social History Narrative ?Not on file ? FAMILY HISTORY:? FAMILY?HISTORY FAMILY HISTORY Problem Relation Age of Onset ? Kidney Disease Father ? at age 80 ? other (Kidney Cancer) Father ? ? Diabetes Brother ? ? Hypertension Brother ? ? Heart Brother ? ? No Ocular Disease No Family History ? ? REVIEW OF SYMPTOMS: ??The review of systems data was entered by the nurse and reviewed by me ? Nursing Notes: Jody Avery RN ?12/15/2018 10:03 AM ?Signed REVIEW OF SYSTEMS: ?General:???The patient denies fatigue, denies weight loss, denies weight gain, denies feeling hot, and denies feelings of cold. ?Eyes: ?The patient denies glaucoma, denies eye injury/surgery, wears glasses or contacts. ?Ear/Nose/Throat: ?The patient notes allergies, denies hayfever, denies ear infections, and denies bloody noses. ?Cardiovascular: ?The patient denies chest pain, notes heart disease, denies high blood pressure,denies cardiac stent, notes prior heart attack, denies irregular heart beat, denies high cholesterol, ?notes poor circulation, denies heart failure, other cardiac issues, denies claudication, denies cold feet, denies peripheral arterial stent. ?Respiratory: ?The patient denies tuberculosis, denies pneumonia, denies frequent cough, notes pulmonary embolism, denies shortness of breath, and denies coughing up blood. ?Gastrointestinal: ?The patient denies difficulty swallowing, denies acid reflux, notes ulcers, denies vomiting, denies jaundice/hepatitis, notes gallbladder problems, denies black or tarry stools, denies hemorrhoids, NOTES bleeding from rectum, denies diverticulitis, denies constipation, denies diarrhea, denies loss of stool control, and NOTES hernias. ?Kidney/Bladder: ?The patient denies kidney stones, NOTES urine infections, and denies bloody urine. ?Skin: ?The patient denies a history of skin cancer, denies bleeding/changing moles, and denies a history of skin rash. ?Neurologic: ?The patient denies a history of epilepsy/convulsions, denies headaches, denies head/spinal injuries, and denies stroke/TIA. ?Psychiatric: ?The patient denies psychiatric medications, denies depression, and denies voices, denies substance abuse. ?Endocrine: ?The patient denies thyroid disorders, notes diabetes, and denies hormonal problems. ?Hematologic: ?The patient notes a history of bruising, denies bleeding, and notes anemia, notes blood clots. ?Infections: ?The patient notes a history of measles and mumps, notes rheumatic fever, and denies sexually transmitted diseases. ?Musculoskeletal: ?The patient denies back pain/injury, denies back problems, denies sciatica, notes knee/foot trouble, notes arthritis, or denies gout. ? ? When was patient's last Mammogram screening? unknown ? ?Last Colonoscopy: ?2017 ? Jody Avery RN ? PHYSICAL EXAMINATION: ? General: ?The patient is 72 year old female, well nourished, well hydrated in no acute distress. ?The patient is oriented to time, place, and person. ? VITALS:?Blood pressure 120/64, pulse 90, temperature 36.8 ?C (98.2 ?F), temperature source Temporal Artery, height 154.9 cm (5' 1), weight 101.6 kg (224 lb), SpO2 97 %.?Body mass index is 42.32 kg/m?.? ? HEENT: ?Normal cephalic, ataumatic, pupils are equally round, sclera are anicteric, mucous membranes are moist, oropharynx is clear. ?Neck has no masses, asymmetry or lymphadenopathy. ?Thyroid is unremarkable. ? Respiratory: ?Clear to auscultation and percussion. ?Normal respiratory excursion and pattern. ? Cardiac: ?Examination is regular rate and rhythm. ? Abdominal exam: ?Soft, nontender, ?with no palpable masses. ?No hepatosplenomegaly. ?A large parastomal hernia with a colostomy bag in place with a loop transverse stomal hernia. ?Multiple abdominal incisions. ?Having the patient laid on the exam table with gentle pressure. ?The herniated bowel contents can be completely reduced. ? Rectal exam: exam deferred ? Extremities: ?no clubbing, cyanosis or edema. ?No adenopathy. ? Other: ? LABORATORY VALUES: As Noted ? RADIOLOGIC STUDIES: ?As Noted ? Assessment ? IMPRESSION: Vaginal melanoma with pelvic mass-questionable?degree of response, ?parastomal hernia,?but he mucous per stump ? PLAN: ?I plan to perform flexible sigmoidoscopy with sedation and probable biopsy to assess whether there still is tumor present in the low anterior rectum. ?We discussed the risks and benefits of the planned endoscopy. ?I have informed the patient that complications can occur including failure to complete the endoscopy and perforation. ?The patient had the opportunity to ask questions concerning the planned endoscopy. ?My staff has also explained the procedure to the patient in understandable terms and has given the patient printed material concerning the procedure. ?The patient freely consents to surgery. ? Nonetheless, I discussed with the patient, I doubt there will be completely response in the area. ?Even if the area appeared to be melanoma free, I would be concerned with risk of recurrence of pelvic sepsis and given the fact that she had pelvic radiation and has had multiple procedures whether she would have any degree of fecal continence. ??In short, we agreed that colostomy takedown would probably be very risky endeavor with low chance for long-term success. ? 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 My findings have been communicated to Dr. Estevez via shared medical record. ?This note will be forwarded to Dr. Chente Daigle MD. ?? Return to Clinic: The patient is instructed to follow-up with me after the testing has been completed. ? Brooks Merino MD
--- NOTE | 2019-01-09 | IMM_PTH ---
PATIENT: KANU AJ LOC: EN U#:[id number] AGE/SX: 73/F ROOM: RE01/09/[address]: Dr. Brooks Merino MD : 1945 BED: DIS: 01/09/2019 SPEC #: [id number] RECD: 01/11/19 15:11 STATUS: DIEGO REQ #: [id number] RADHA: 01/09/19 00:[address]: Brooks Merino DEPT: IMMUNOHISTOCHEMISTRY RECD BY: Norma Viera ENTERED: 01/11/19 15:13 SP TYPE: IMMUNO OTHR DR: Dr. Chente Daigle MD Tissues: C - Colon, NOS Procedures: Synapto (add) CD56 (add) CHROMO (add) KI-67 (add) P53 (add) Vimentin (add) Pankeratin (initial) MELAN-A (add) NSE (add) S-100 (add) PHYSICIAN [facility] INSTITUTION [address] [address] SPECIMEN INFORMATION: Tissue Source: C - Lesion at 10 cm, biopsy Clinical Info: History of pelvic mass, blood per rectum Specimen Number: [id number] code: 90671, [id number] x9 METHODOLOGY: Deparaffinized sections of prefer/formalin-fixed tissue or PAP/DQ stained slides are incubated with monoclonal/polyclonal antibodies/oligonucleotide probes. Localization is made via biotin free immunoperoxidase method. Appropriate controls are performed and reacted as expected. Results on target cell population are indicated in the following table: RESULTS: ANTIBODY / CLONE RESULT Block C AE1-3 (AE1/AE3/PCK26) negative Vimentin (V9) positive Melan A (A103) positive S-100 (4C4.9) positive, focal CD56 (123C3.D5) negative Chromo (LK2H10) negative Synapto (polyclonal) negative NSE Neuron Specific Enolase negative P53 (DO-7) positive, 20%, weak to moderate Ki-67 (30-9) positive, moderate These tests were developed and their performance characteristics determined by [facility]. They may not have been cleared or approved by the U.S. Food and Drug Administration. The FDA has determined that such clearance or approval is not necessary. INTERPRETATION: C. Lesion at 10 cm, biopsy: Consistent with malignant melanoma. AM:malina 01/12/19
[2019-01-09 12:56] VITALS: BP 114/42; PULSE 82; RESP 16; TEMP 37; O2SAT 96; BMI 38.9
--- NOTE | 2019-01-09 13:15 | COLBX_PTH ---
PATIENT: KANU AJ LOC: EN U#:[id number] AGE/SX: 73/F ROOM: RE01/09/[address]: Dr. Brooks Merino MD : 1945 BED: DIS: 01/09/2019 SPEC #: [id number] RECD: 01/09/19 15:08 STATUS: DIEGO GUZMAN #: [id number] RADHA: 01/09/19 13:[address]: Brooks Merino DEPT: SURGICAL PATHOLOGY RECD BY: Boyd Montelongo ENTERED: 01/10/19 13:31 SP TYPE: COLON BX OTHR DR: Dr. Chente Daigle MD Tissues: A - POLYP B - COLON BIOPSY C - COLON BIOPSY Procedures: Surgery Specimen Level IV HEADER OPERATION: Colonoscopy (MAC) PRE-OP DIAGNOSIS: History of pelvic mass; blood per rectum TISSUE SUBMITTED: A - Polyp at 30 cm, B - Lesion biopsy at 20 cm, C - Lesion biopsy at 10 cm MICROSCOPIC DIAGNOSIS A. Polyp at 30 cm, biopsy: Hyperplastic polyp. Fibrinopurulent material. B. Lesion at 20 cm, biopsy: Colonic mucosa with adenomatous change. C. Lesion at 10 cm, biopsy: Consistent with malignant melanoma. AM:malina 01/11/19 COMMENT C. Immunohistochemistry ([id number]) supports the above diagnosis. Reference is made to the patient's rectal mass biopsy from 12/29/16 ([id number]) in which fragments of malignant melanoma were identified. Case has been reviewed in consultation with Dr. Hickman who concurs with the above diagnosis. IDC:[id number] MICROSCOPIC DESCRIPTION Slides are reviewed. GROSS DESCRIPTION A - Received in fixative is one container labeled with the patient's name and designated polyp at 30 cm. The specimen consists of multiple irregular fragments of dennis soft tissue mixed with fecal material that in aggregate measure 1.5 x 1 x 0.2 cm. The entire specimen is submitted in one cassette. B - Received in fixative is one container labeled with the patient's name and designated lesion at 20 cm biopsy. The specimen consists of one irregular fragment of light dennis soft tissue that measures 0.3 x 0.2 x 0.1 cm. The specimen is totally submitted in one cassette. C - Received in fixative is one container labeled with the patient's name and designated lesion at 10 cm biopsy. The specimen consists of multiple irregular fragments of light dennis soft tissue that in aggregate measure 1 x 0.5 x 0.1 cm. The specimen is totally submitted in one cassette. / SJ:rg 01/10/19 TC:0 [facility]: [id number] x3 ADDENDUM ADDENDUM ADDENDUM ADDENDUM ADDENDUM ADDENDUM ADDENDUM ADDENDUM ADDENDUM ADDENDUM ADDENDUM ADDENDUM ADDENDUM ADDENDUM 03/31/2019 09:28 ADDENDUM 03/31/2019 09:28 ADDENDUM 03/31/2019 09:28 ADDENDUM 03/31/2019 09:28 ADDENDUM 03/31/2019 09:28 [facility] NGS SEQUENCING REPORT FROM [facility] RESULT SUMMARY: Abnormal Detected Genomic Alterations: NRAS [id number].[id number] Pertinent Negative Results: The following genes are negative for clinically relevant mutations. Mutational hotspots and surrounding exonic regions were interrogated for DNA level point mutations and indels (fusions not assayed). BRAF (exons 11, 15) inclusive of V600 KIT (exons 9, 11, 14, 17, 18) Please see complete report in e-chart or EMR for further details
[2019-01-09 13:21] LABS: Bedside Glucose 119 mg/dL (70-110)
[2019-01-09] MEDS: Lactated Ringers 1,000 ML 100 ML IV (13:58)
[2019-01-09 14:50] VITALS: BP 114/42; BP 116/83; PULSE 70; RESP 16; TEMP 36.3; O2SAT 100
[2019-01-09 15:00] VITALS: BP 114/42; BP 116/59; PULSE 70; RESP 16; O2SAT 100
--- NOTE | 2019-01-09 15:00 | OP.ENDO_ITS ---
01/09/2019 Chente Daigle [address] [facility] [place] [address] [place] [address] Re : Colonoscopy procedure for Cindy Keys Dear Dr. Daigle This procedure was performed on Wednesday, January 09, 2019. My impressions and recommendations are as follows: Impressions : - Rectal mass 3 to 8 cm from the anal verge. - Widely patent loop colostomy with healthy appearing mucosa at 105 cm proximal to the anus. - Diffuse mild inflammation was found in the entire examined colon consistent with diversion colitis. - One 4 mm polyp in the sigmoid colon, removed with a hot snare. Resected and retrieved. - Likely malignant partially obstructing tumor in the distal rectum. Biopsied. - Malignant-appearing tumor in the colon. Biopsied. Recommendations : - Discharge patient to home. - Resume previous diet. - Continue present medications. - Return to my office in 1 week. - Repeat colonoscopy is recommended. The colonoscopy date will be determined after pathology results from today's exam become available for review. My findings are described in the full procedure note, which is enclosed. If I can be of further assistance, please feel free to contact me at Doctor phone number(s): , Work: . Sincerely, Brooks Merino MD 01/09/2019 3:00:09 PM This report has been signed electronically.
[2019-01-09 15:05] VITALS: BP 114/42; BP 114/53; PULSE 69; RESP 16; O2SAT 99
[2019-01-09 15:09] VITALS: BP 114/42; BP 118/51; PULSE 69; RESP 18; TEMP 36.8; O2SAT 99
[2019-01-09 15:29] VITALS: BP 114/42
== END 2019-01-09 15:43 | disposition home or self-care (01) ==
LOC: EN 12:28 → AC 12:29
PROVIDERS: Family Provider Family Medicine; PCP Family Medicine; Referring Provider Family Medicine; Visit Provider Surgery
PROC: 0DJD8ZZ Inspection of Lower Intestinal Tract, Via Natural or Artificial Opening Endoscopic (ICD-10-PCS; CPT 45378; principal; 2019-01-09 13:10)
DX: C20 Malignant neoplasm of rectum (principal); C78.6 Secondary malignant neoplasm of retroperitoneum and peritoneum; K43.5 Parastomal hernia without obstruction or gangrene; D12.5 Benign neoplasm of sigmoid colon; Z93.3 Colostomy status; J45.909 Unspecified asthma, uncomplicated; M19.90 Unspecified osteoarthritis, unspecified site; E11.9 Type 2 diabetes mellitus without complications; I89.0 Lymphedema, not elsewhere classified; I25.2 Old myocardial infarction; G43.909 Migraine, unspecified, not intractable, without status migrainosus; N18.9 Chronic kidney disease, unspecified; E66.9 Obesity, unspecified; Z68.41 Body mass index [BMI] 40.0-44.9, adult; Z86.711 Personal history of pulmonary embolism; Z86.718 Personal history of other venous thrombosis and embolism; Z79.01 Long term (current) use of anticoagulants; Z79.84 Long term (current) use of oral hypoglycemic drugs; Z79.899 Other long term (current) drug therapy
CPT/HCPCS: 45380; 45385; 82962; 88305; 88341; 88342; J7120

== ENCOUNTER 2019-01-12 08:20 | Observation (INO) | payer MEDICARE, SELFPAY ==
[2019-01-12] VITALS (13 sets, daily range): BP systolic 107–170; BP diastolic 56–97; PULSE 77–105; RESP 15–27; TEMP 36.4–36.9; O2SAT 94–98; BMI 36.4; BMI 39.4
--- NOTE | 2019-01-12 08:30 | EKG12_ITS ---
Test Reason : SOB Blood Pressure : / mmHG Vent. Rate : 089 BPM Atrial Rate : 089 BPM P-R Int : 176 ms QRS Dur : 094 ms QT Int : 372 ms P-R-T Axes : 024 -30 032 degrees QTc Int : 452 ms Normal sinus rhythm Left axis deviation Abnormal ECG Confirmed by NIDHI BEAR, PHILLY ([id number]), city editor LUCRETIA CONNOR ([id number]) on 01/16/2019 3:34:50 PM Referred By: Magali Dixon Confirmed By:PHILLY TERRELL MD
--- NOTE | 2019-01-12 08:31 | RAD_ITS ---
STUDY: X-RAY CHEST REASON FOR EXAM: Female, 73 years old. Chest pain and shortness of breath. History of asthma. TECHNIQUE: Single AP portable view of the chest. COMPARISON: Comparison is made with prior examination dated October 15, 2017. FINDINGS: EKG electrodes are seen. Mild elevation of the left hemidiaphragm. Mild increased markings at the lung bases suggestive of atelectasis and/or scarring. Mild degree of vascular congestion. There is no demonstrated pleural abnormality. Normal size heart. Normal mediastinum and demetrius. Normal visualized pulmonary arteries. There is atherosclerotic tortuosity of the aortic arch and descending thoracic aorta. There are diffuse degenerative changes of the visualized thoracic spine. Evidence of prior left rotator cuff surgery. There is no demonstrated abnormality of the visualized soft tissue structures of the upper abdomen. RAD/Chest 1 View (Portable) IMPRESSION: Mild degree of vascular congestion with superimposed mild degree of increased markings at the lung bases suggestive of atelectasis. Electronically Signed: Mitchel Diaz, at 9:04 EDT , Service support ,
--- NOTE | 2019-01-12 08:34 | ED.DCSUM_ITS ---
- ER Visit Summary Date of Service: 01/12/19 Chief Complaint: Shortness of breath History of Present Illness: The patient is a 73 F with shortness of breath that started yesterday evening. It came on gradually and persisted through the night. Prior to that, the patient was feeling well. She reports no prior symptoms like this. Nothing seems to make it better. She tried a rescue inhaler with no relief. She does have a cough with sputum. Denies fevers. Denies chest pain. She does have a sore throat. She has a history of DVT and is compliant with Eliquis. She has a history of asthma. She is not currently on steroids or antibiotics. Denies any history of coronary disease. Physical Examination: Afebrile and vital signs unremarkable except for blood pressure of 170/97. 97% on room air. HEENT exam unremarkable except for an enlarged uvula, midline. Good range of motion of her neck. No lymphadenopathy. Mild stridor. Heart regular rate and rhythm. Lungs are diminished in all muir. No wheezing. Skin unremarkable. Lower extremities show symmetric nontender edema. Alert and oriented. Test Results: EKG shows sinus rhythm at a rate of 89. No sign of acute ischemia or infarction pattern. Laboratory studies and x-ray are pending. Emergency Department Course and Treatment: EKG performed. Patient placed on a monitor. Will treat with Solu-Medrol and DuoNeb. Will check x-ray, labs and re assess. Testing was all fairly unremarkable. Her blood work is fairly stable. Chest x- ray showed mild congestion. Patient was requesting discharge. I was concerned her uvula was swollen and she was having trouble breathing. I was concerned for infection or other obstruction. I advised a CT. Patient required premedication with Benadryl. This seemed to help with her swelling. I am concerned that she may have had allergic reaction. She said she took NyQuil which was new. She was also exposed to bleach. CT showed thyroid nodules. Patient is not having tenderness. I believe these can be followed up as an outpatient. These were discussed with the patient. She will need further testing. I cannot rule out malignancy. She voiced understanding. On reevaluation, patient is breathing well. Swelling seems to have improved. We will continue steroids, antibiotics, and Benadryl. Allergy precautions were discussed. Avoid NyQuil and bleach inhalation. Follow-up with primary care. Return right away for any problems. Please note that the patient was discharged during computer downtime. She received paper prescriptions and discharge instructions. Upon discharge, the patient is complaining of shortness of breath and generalized weakness. She does not feel comfortable going home. I advised hospitalization. I spoke with the hospitalist. Treatment Plan: As above Disposition: Admit Impression: 1. Uvulitis 2. Thyroid nodules This note was generated with Page Mageation software. It may contain incorrect words, spelling, and punctuation that were not noted in review of the chart prior to signing ED Disposition - Plan for ED Patient: Referrals: Chente Daigle MD [Primary Care Provider] -
[2019-01-12 08:38] LABS: Absolute Lymphocyte Count 0.48 X10^3/uL (0.83-4.51); Absolute Neutrophil Count 3.2 X10^3/uL (2.0-7.7); Basophil# 0.01 X10^3/uL; Basophil% 0.2 % (0-1); Eosinophil# 0.09 X10^3/uL; Eosinophils% 2.1 % (0-5); Hematocrit 38.8 % (37-47); Hemoglobin 11.9 g/dL (12.0-15.0); Lymphocyte # 0.48 X10^3/ul (4.0); Lymphocyte % 11.4 % (19-41); Mean Corp Hgb Conc 30.7 g/dL (32-36); Mean Corpuscular Hgb 27.2 pg (27.0-32.0); Mean Corpuscular Volume 88.6 fL (81-99); Mean Platelet Vol. 9.5 fl (6.2-12.0); Monocyte# 0.43 X10^3/uL; Monocyte% 10.2 % (0-10); NRBC Flagged by Analyzer 0 % (0-5); Neutrophil % 75.9 % (47-70); POSITIVE DIFFERENTIAL YES; Platelet Count 148 K/mm3 (150-450); RBC Distribution Width CV 15.5 % (11.6-14.6); RBC Distribution Width SD 50.5 fl (35.1-43.9); Red Blood Count 4.38 M/mm3 (4.2-5.4); White Blood Count 4.2 K/mm3 (4.4-11.0)
[2019-01-12] MEDS: Ipratropium/Albuterol Sulfate 3 ML AMPUL.NEB INHALATION ×3 (08:39→19:13)
[2019-01-12 08:40] LABS: Differential Indicated SCAN CRITERIA MET
[2019-01-12 08:52] LABS: Anion Gap 4 (5-15); BUN 23 mg/dL (7-18); BUN/Creat Ratio 16.7 RATIO (10-20); Calcium,Total 8.9 mg/dL (8.5-10.1); Chloride 107 mmol/L (98-107); Creatinine, Serum 1.38 mg/dL (0.55-1.02); EST Glomerular Filtration Rate 40 mL/min (>60); Est Glom Filt Rate - Afr Amer 48 mL/min (>60); Estimated Creatinine Clearance 30.03 ml/min; Glucose 134 mg/dL (74-106); Sodium Level 139 mmol/L (136-145)
--- NOTE | 2019-01-12 09:19 | CT_ITS ---
STUDY: CT SOFT TISSUE NECK WITH CONTRAST REASON FOR EXAM: Female, 73 years old. Shortness of breath. Stridor. History of metastatic melanoma. RADIATION DOSAGE (If Supplied By Facility): CTDIvol = ( 20.72 ) mGy, DLP = ( 548.47 ) mGycm TECHNIQUE: The patient was scanned in a multi-detector CT scanner. High resolution transaxial imaging was performed following intravenous administration of IV Isovue 300 75. Sagittal and coronal images were reconstructed. Individualized dose optimization techniques were used for this CT. COMPARISON: None. FINDINGS: Normal bilateral parotid glands. Normal bilateral leather shaver spaces. Normal bilateral parapharyngeal spaces. Normal bilateral carotid spaces. Normal bilateral sublingual and submandibular glands and spaces. Normal visualized nasopharynx. Normal retropharyngeal space. Normal perivertebral space. Normal visualized bilateral faucial tonsils. The visualized tongue, tongue base and oropharynx are normal. There are minimally enlarged lymph nodes of the neck, with preservation of normal vanessa architecture, consistent with a reactive lymph hyperplasia. There is no demonstrated solid or cystic mass lesion. There is no abnormal contrast enhancement. Normal epiglottis, bilateral vallecula and hypopharynx. The pre-epiglottic and paraglottic adipose spaces are normal. Normal visualized bilateral piriform sinuses, aryepiglottic folds, vocal cords, and arytenoid-cricoid articulations. Normal subglottic trachea. There is a 2.4 cm x 1.7 cm hypodense nodule in the superior aspect of the right lobe of the thyroid. There is also evidence of a 1.2 cm hypodense solid nodule in the midportion of the left lobe of the thyroid. Normal visualized pulmonary apices. Ethmoid sinusitis. There is multilevel degenerative changes of the cervical spine. CT/Soft Tissue Neck WITH Contrast IMPRESSION: Thyroid enlargement with bilateral thyroid nodules worse on the right side. Electronically Signed: Mitchel Diaz, at 12:40 EDT , Service support ,
[2019-01-12] MEDS: MethylPREDNISolone 125 MG/2 ML Vial IV (09:25)
[2019-01-12] MEDS: Ceftriaxone 1 GM/50 ML BAG IV (10:13)
[2019-01-12] MEDS: DiphenhydrAMINE 50 MG/ML Syringe 25 MG IV (10:14)
--- NOTE | 2019-01-12 13:44 | ED.RN ---
THIS NURSE HAD DISCHARGED PT AND ONCE PT WAS DRESSED AND UP TO W/C, FAMILY NOTICED PT WAS EXTREMELY SOB C/O LUNGS BURNING COUGHING, DR. ORTEGA INFORMED OF SAME.
--- NOTE | 2019-01-12 14:31 | HP.PCM_ITS ---
History of Present Illness Date of Admission: 01/12/19 Chief Complaint: shortness of breath The patient is a 73 year old F with a past medical history as listed. She was admitted through the ED on 06/14/2018 with a complaint of shortness of breath which started on the day of admission. Patient states reports some bleach down her laundry sink yesterday. The smell is quite overpowering except when he started having shortness of breath this morning and felt like she was wheezing. She denied any choking sensations but does say she noticed a change in her voice as she spoke to her daughter this morning and her daughter could not understand what she was saying. Patient does have asthma and states her last exacerbation was about 8 months ago. She is never been intubated or admitted in the ICU on account of asthma exacerbation and states she uses her inhaler infrequently. However she has had to use at least twice this morning before coming into the ED. On admission in the ED vitals were essentially stable. Chest x-ray done showed no acute cardiopulmonary process. Soft tissue neck CT showed a patent airway and thyroid enlargement with bilateral thyroid nodules worse on the right side. Chemistry was essentially unremarkable and CBC was essentially unremarkable. She has been admitted to be managed for shortness of breath likely due to airway reactivity and hyperresponsiveness from bleach inhalation. [] Past Medical History Past Medical History (Chronic Problems): Chronic Problems Bilateral lower extremity edema (Chronic) Lymphedema of both lower extremities (Chronic) Asthma (Chronic) Reported, severity unknown History of DVT (deep vein thrombosis) (Chronic) History of pulmonary embolism (Chronic) Type II diabetes mellitus (Chronic) Cancer of ovary (Chronic) Anemia (Chronic) Venous insufficiency (Chronic) Poor dentition (Chronic) Allergies clindamycin Allergy (Verified 01/09/19 12:46) Other meperidine HCl [From Demerol] Allergy (Verified 01/09/19 12:46) Other Penicillins Allergy (Verified 01/09/19 12:46) Itching adhesive tape Adverse Reaction (Verified 01/09/19 12:46) Other BLISTERS aspirin Adverse Reaction (Verified 01/09/19 12:46) Other diazepam [From Valium] Adverse Reaction (Verified 01/09/19 12:46) Nausea/Vom/Diarrhea egg Adverse Reaction (Verified 01/09/19 12:46) Diarrhea methadone Adverse Reaction (Verified 01/09/19 12:46) Upset Stomach morphine Adverse Reaction (Verified 01/09/19 12:46) Nausea/Vom/Diarrhea sulfamethoxazole [From Bactrim] Adverse Reaction (Verified 01/09/19 12:46) Nausea/Vom/Diarrhea trimethoprim [From Bactrim] Adverse Reaction (Verified 01/09/19 12:46) Nausea/Vom/Diarrhea Home Medications: Ambulatory Orders Medication Instructions Recorded Acetaminophen [Tylenol] 325 mg PO Q6H PRN PRN 05/29/15 Cyanocobalamin [Vitamin B12] 1,000 mcg PO DAILY@0800 05/29/15 cycloBENZAPRine HCl [Flexeril] 10 mg PO QHS 05/29/15 metFORMIN HCl [Glucophage] 500 mg PO BIDCM 05/29/15 Apixaban [Eliquis] 2.5 mg PO BID 06/12/15 Furosemide [Lasix] 20 mg PO DAILY 07/16/15 Oxycodone [Oxyir] 5 mg PO Q4H PRN PRN #60 tablet 07/20/15 proMETHazine tablet [Phenergan 25 mg PO 4X/DAY PRN PRN #20 tablet 07/20/15 tablet] Albuterol IH (ProAir) [Proair Hfa] 2 puff INHALATION Q6H PRN PRN 05/27/16 Ondansetron HCl [Zofran] 4 mg PO 4X/DAY PRN PRN 05/27/16 Sumatriptan Succinate [Imitrex] 50 mg PO .X1 PRN 05/27/16 Oxycodone HCl [Oxycodone HCl ER] 15 mg PO BID 12/25/16 Cholecalciferol (VIT D3) [Vitamin 2,000 unit PO DAILY 04/01/18 D3] Ascorbic Acid [C-1000 with Kelley 1,000 mg PO DAILY 01/12/19 Hips] DiphenhydrAMINE [Benadryl] 25 mg PO BID PRN PRN 01/12/19 Lorazepam [Ativan] 0.25 - 0.5 mg PO Q6H PRN PRN 01/12/19 Multivit-Min/Iron/Folic/Lutein 1 tab PO DAILY 01/12/19 [Centrum Silver Women Tablet] prednisoLONE eye drops (5 mL) 1 drp LEFT EYE BID 01/12/19 [Pred Forte eye drops (5 mL)] prednisoLONE eye drops (5 mL) 1 drp RIGHT EYE DAILY 01/12/19 [Pred Forte eye drops (5 mL)] Surgical History: cholecystectomy, hysterectomy - For uterine fibroids, total hip arthroplasty - Right, total knee arthroplasty - Left, - - Surgery for bilateral carpal tunnel syndrome. Resection of ovarian cancer at [facility] in 2016, debridement of the abdominal wall with wound closure by Dr. Garza in June 2015 Psychiatric History: No pertinent psych hx A AUXILIARY History: ovarian cancer, uterine fibroids Lives: Alone Smoking Status: Never smoker Alcohol: None Drugs: None - *Family History Maternal History Items: No pertinent history, - - no cancer Paternal History Items: No pertinent history Review of Systems Constitutional: Denies: Chills, Fever, Malaise, Weakness, Weight Change Eyes: Denies: Blurred vision HEENT: Denies: Head Aches, Sinus Congestion, Sinus Drainage Cardiovascular: Denies: Chest Pain, Chest Pressure, Chest Tightness, Heaviness, Light Headedness, Orthopnea, Palpitations Respiratory: Reports: Cough - productive of scanty brownish sputum, Shortness of Breath, Shortness of breath at rest, Sputum production, Wheezing Gastrointestinal: Denies: Abdominal Pain, Nausea, Vomiting Genitourinary: Denies: Dysuria Musculoskeletal: Denies: Joint Pain, Joint Tenderness Skin: Denies: Rash, Wounds Neurological: Denies: Numbness, Tingling, Focal weakness Psychiatric: Denies: Anxiety, Depression, Homicidal Ideations, Suicidal Ideations Hematologic/ Lymphatic: Denies: Easy Bruising, Easy Bleeding VTE Information - Inpt Only VTE Present on Admission: No VTE Pharm Prophylaxis ordered?: Yes - Physical Exam General: Alert, Oriented x3, Cooperative, No apparent distress HEENT: Atraumatic, PERRLA, EOMI, Normocephalic Oral: Moist Mucosa Neck: Supple, No JVD, Negative Carotid Bruits Lungs: Clear to auscultation, Normal air movement, No rhonchi, No wheeze, No rales Cardiovascular: Regular rate, Regular Rhythm, Normal S1, Normal S2, No murmurs Abdomen: Bowel Sounds Present, Soft, Non Tender, Non-Distended, No Hepato- splenomegaly, - - colostomy bag containing stool Extremities: No clubbing, No cyanosis, Capillary Refill Less than 3 Seconds, - - bilateral LE edema with chronic stasis changes Skin: No rashes, No breakdown Musculoskeletal: No Tenderness to Palpation of Joints or Extremities Lymphatic: No Cervical, Supraclavicular, or Inguinal Adenopathy Neurological: Cranial nerves II-XII grossly intact Psych/Mental Status: Normal Affect, Appropriate, Alert and oriented to time, place, person, mood and affect Vital Signs Temp Pulse Resp BP Pulse Ox 97.6 F L 94 18 107/78 94 01/12/19 08:29 01/12/19 13:23 01/12/19 13:23 01/12/19 13:23 01/12/19 13:23 Oxygen Delivery Method Room Air Weight: 205 lb 11.06 oz Body Mass Index (BMI) 36.4 Finger Stick Blood Glucose 210 Intake and Output for Last 24 Hours 01/10/19 01/11/19 01/12/19 23:59 23:59 23:59 Intake Total 50 / 50 Balance 50 / 50 Laboratory Tests Past 24 Hrs 01/12/19 01/12/19 08:25 08:25 WBC 4.2 L RBC 4.38 Hgb 11.9 L Hct 38.8 MCV 88.6 MCH 27.2 MCHC 30.7 L RDW Std Deviation 50.5 H RDW Coeff of Zuri 15.5 H Plt Count 148 L MPV 9.5 Immature Gran % (Auto) 0.200 Neut % (Auto) 75.9 H Lymph % (Auto) 11.4 L [place] % (Auto) 10.2 H Eos % (Auto) 2.1 Baso % (Auto) 0.2 Absolute Neuts (auto) 3.2 Absolute Lymphs (auto) 0.48 L Nucleated RBC % 0 Sodium 139 Potassium 4.0 Chloride 107 Carbon Dioxide 28.0 Anion Gap 4 L BUN 23 H Creatinine 1.38 H Estim Creat Clear Calc 30.03 Est GFR (MDRD) Af Amer 48 L Est GFR (MDRD) Non-Af 40 L BUN/Creatinine Ratio 16.7 Glucose 134 H Calcium 8.9 Troponin I < 0.015 Diagnostic Data Chest X-Ray 01/12/19 08:31 IMPRESSION: Mild degree of vascular congestion with superimposed mild degree of increased markings at the lung bases suggestive of atelectasis. Electronically Signed: Mitchel Diaz, at 9:04 EDT , Service support , Soft Tissue Neck CT 01/12/19 09:19 IMPRESSION: Thyroid enlargement with bilateral thyroid nodules worse on the right side. Electronically Signed: Mitchel Diaz, at 12:40 EDT , Service support , Assessment/Plan All Active Problems CSD (cat scratch disease) (Acute) Ulcer of right lower extremity with fat layer exposed (Acute) Cellulitis of left lower extremity (Acute) Sepsis (Acute) Cellulitis of right lower extremity (Acute) Severe sepsis (Acute) Melanoma (Acute) Acute renal insufficiency (Acute) Dental infection (Acute) Dehydration (Acute) Abdominal wall ulcer (Resolved) Colitis (Resolved) Left leg cellulitis (Resolved) Sepsis (Resolved) Surgical wound dehiscence (Resolved) 73 y/o female admitted with a complaint of shortness of breath and wheezing after inhaling the fumes of bleach 1. Bronchial hyperreactivity and hyperresponsiveness likely due to effect of bleach inhalation * admit to med surg with telemetry * CT soft tissue neck showed thyroid enlargement, but airway was patent * CXR showed no acute cardiopulmonary process * IV benadryl and IV solumedrol * breathing treatments with duonebs * hydrate gently with IVF * 2. Thyroid nodules: * as diagnosed per CT scan, which showed thyroid enlargement also, and bilateral thyroid nodules. However, airway is patent, and I'm not convinced the thyroid enlargement is related to the shortness of breath. Will monitor 2.CKD stage 3: Cr is 1.38, which is around her baseline. Will monitor 3. Melanoma: on chemotherapy. To follow up with her oncologist upon discharge 4. Diabetes mellitus: on metformin 500mg bid. ISS. Accuchecks ACHS 5. history of PE and DVT : on eliquis Code status: * Patient counseled about different types of CODE STATUS including full code, DNR CCA and DNR CCA. Patient elects to be full code. * Total [id number] time 16 minutes. Code Visit OBSV E&M: 53135 Initial observation care L2 Procedures: 68983 Advncd Care Plan 30 Min
[2019-01-12] MEDS: oxyCODONE 5 MG Tablet PO ×2 (15:49→20:09)
[2019-01-12] MEDS: Acetaminophen 325 MG Tablet PO (15:49)
[2019-01-12] MEDS: metFORMIN HCl 500 MG Tablet PO (17:11)
[2019-01-12] MEDS: Glucerna Shake 120 ML LIQUID PO (17:11)
[2019-01-12] MEDS: Insulin Lispro 100 UNIT/ML INSULN.PEN SC ×2 (17:16→22:15)
[2019-01-12 17:20] LABS: Bedside Glucose 236 mg/dL (70-110)
[2019-01-12] MEDS: Rizatriptan Benzoate 10 MG Tablet PO (18:43)
[2019-01-12] MEDS: APIXABAN 2.5 MG TABLET PO (22:15)
[2019-01-12] MEDS: prednisoLONE eye drops (5 mL) 1 DROP OPTH.BTL 1 DRP LEFT EYE (22:16)
[2019-01-12] MEDS: oxyCODONE 5 MG Tablet 15 MG PO (22:23)
[2019-01-12] MEDS: cycloBENZAPRine HCl 10 MG Tablet PO (22:23)
[2019-01-12 22:26] LABS: Bedside Glucose 309 mg/dL (70-110)
[2019-01-13] VITALS (8 sets, daily range): BP systolic 110–131; BP diastolic 51–67; PULSE 73–91; RESP 16–18; TEMP 36.4–36.8; O2SAT 96–100
[2019-01-13] MEDS: predniSONE 20 MG Tablet 40 MG PO (02:41)
[2019-01-13 06:19] LABS: Absolute Lymphocyte Count 0.37 X10^3/uL (0.83-4.51); Absolute Neutrophil Count 1.7 X10^3/uL (2.0-7.7); Hematocrit 32.4 % (37-47); Hemoglobin 9.7 g/dL (12.0-15.0); Lymphocyte # 0.37 X10^3/ul (4.0); Lymphocyte % 15.7 % (19-41); Mean Corp Hgb Conc 29.9 g/dL (32-36); Mean Corpuscular Hgb 26.6 pg (27.0-32.0); Mean Corpuscular Volume 88.8 fL (81-99); Mean Platelet Vol. 10.1 fl (6.2-12.0); Monocyte# 0.31 X10^3/uL; Monocyte% 13.2 % (0-10); NRBC Flagged by Analyzer 0 % (0-5); Neutrophil # 1.66 X10^3/uL (2.7-7.7); Neutrophil % 70.7 % (47-70); POSITIVE DIFFERENTIAL YES; Platelet Count 130 K/mm3 (150-450); RBC Distribution Width CV 15.8 % (11.6-14.6); RBC Distribution Width SD 51.6 fl (35.1-43.9); Red Blood Count 3.65 M/mm3 (4.2-5.4); White Blood Count 2.4 K/mm3 (4.4-11.0)
[2019-01-13 06:24] LABS: Differential Indicated SCAN CRITERIA MET
[2019-01-13] MEDS: Insulin Lispro 100 UNIT/ML INSULN.PEN SC ×2 (06:40→12:26)
[2019-01-13 06:42] LABS: Anion Gap 5 (5-15); BUN 25 mg/dL (7-18); BUN/Creat Ratio 19.1 RATIO (10-20); Calcium,Total 8.2 mg/dL (8.5-10.1); Chloride 108 mmol/L (98-107); Creatinine, Serum 1.31 mg/dL (0.55-1.02); EST Glomerular Filtration Rate 42 mL/min (>60); Est Glom Filt Rate - Afr Amer 51 mL/min (>60); Estimated Creatinine Clearance 27.47 ml/min; Glucose 175 mg/dL (74-106); Potassium 4.1 mmol/L (3.5-5.1); Sodium Level 141 mmol/L (136-145)
[2019-01-13 06:55] LABS: Bedside Glucose 169 mg/dL (70-110)
[2019-01-13] MEDS: Ipratropium/Albuterol Sulfate 3 ML AMPUL.NEB INHALATION ×2 (07:01→11:13)
--- NOTE | 2019-01-13 07:13 | PCM.PROGNOTE ---
Subjective: The patient is a 73-year-old female with a past medical history of bilateral lower extremity lymphedema, asthma, chronic renal failure stage III, history of melanoma on chemotherapy, chronic anticoagulation with Eliquis, VTE, type 2 diabetes mellitus, ovarian cancer, chronic anemia and obesity who presented to the emergency department at [facility] on 01/12/2019 complaining of shortness of breath and a change in her voice. Chemistries and CBC were unremarkable. Chest x-ray showed no acute cardiopulmonary process. A soft tissue neck CT showed a patent airway with thyroid enlargement and bilateral thyroid nodules. She was admitted to the hospital with acute exacerbation of asthma and started on intravenous steroids with transition to prednisone in 24 hours. And nebulized bronchodilators. Patient is afebrile since admission. Hemodynamically stable. Maintaining appropriate oxygen saturation on room air with a respiratory rate of 16-18. Lindsay white blood cell count today is 2.4 with an unremarkable differential. Eosinophils are 0%. Hemoglobin is 9.7 and platelets are mildly decreased at 130,000. BMP is unremarkable. Creatinine is 1.31 which is within her baseline. - Physical Exam Vital Signs Temp Pulse Resp BP Pulse Ox 97.9 F 73 18 122/54 H 98 01/13/19 03:12 01/13/19 07:01 01/13/19 07:01 01/13/19 03:12 01/13/19 07:01 Oxygen Delivery Method Room Air Weight: 201 lb 14.4 oz Body Mass Index (BMI) 39.4 Finger Stick Blood Glucose 210 Intake and Output for Last 24 Hours 01/11/19 01/12/19 01/13/19 23:59 23:59 23:59 Intake Total 410 / 785 615 / 615 Output Total 200 / 200 350 / 350 Balance 210 / 585 265 / 265 Laboratory Tests Past 24 Hrs 01/12/19 01/12/19 01/13/19 08:25 08:25 05:43 WBC 4.2 L 2.4 L RBC 4.38 3.65 L Hgb 11.9 L 9.7 L Hct 38.8 32.4 L MCV 88.6 88.8 MCH 27.2 26.6 L MCHC 30.7 L 29.9 L RDW Std Deviation 50.5 H 51.6 H RDW Coeff of Zuri 15.5 H 15.8 H Plt Count 148 L 130 L MPV 9.5 10.1 Immature Gran % (Auto) 0.200 0.400 Neut % (Auto) 75.9 H 70.7 H Lymph % (Auto) 11.4 L 15.7 L [place] % (Auto) 10.2 H 13.2 H Eos % (Auto) 2.1 0.0 Baso % (Auto) 0.2 0.0 Absolute Neuts (auto) 3.2 1.7 L Absolute Lymphs (auto) 0.48 L 0.37 L Nucleated RBC % 0 0 [address] Path Review May foll Sodium 139 Potassium 4.0 Chloride 107 Carbon Dioxide 28.0 Anion Gap 4 L BUN 23 H Creatinine 1.38 H Estim Creat Clear Calc 30.03 Est GFR (MDRD) Af Amer 48 L Est GFR (MDRD) Non-Af 40 L BUN/Creatinine Ratio 16.7 Glucose 134 H Calcium 8.9 Troponin I < 0.015 01/13/19 05:43 WBC RBC Hgb Hct MCV MCH MCHC RDW Std Deviation RDW Coeff of Zuri Plt Count MPV Immature Gran % (Auto) Neut % (Auto) Lymph % (Auto) [place] % (Auto) Eos % (Auto) Baso % (Auto) Absolute Neuts (auto) Absolute Lymphs (auto) Nucleated RBC % Diff Path Review Sodium 141 Potassium 4.1 Chloride 108 H Carbon Dioxide 28.0 Anion Gap 5 BUN 25 H Creatinine 1.31 H Estim Creat Clear Calc 27.47 Est GFR (MDRD) Af Amer 51 L Est GFR (MDRD) Non-Af 42 L BUN/Creatinine Ratio 19.1 Glucose 175 H Calcium 8.2 L Troponin I POC Glucose 01/13/19 01/12/19 01/12/19 06:38 22:12 17:10 POC Glucose 169 H 309 H 236 H Medical Necessity - Tobacco Use Smoking Status: Never smoker Assessment/Plan All Active Problems CSD (cat scratch disease) (Acute) Ulcer of right lower extremity with fat layer exposed (Acute) Cellulitis of left lower extremity (Acute) Sepsis (Acute) Cellulitis of right lower extremity (Acute) Severe sepsis (Acute) Melanoma (Acute) Acute renal insufficiency (Acute) Dental infection (Acute) Dehydration (Acute) Abdominal wall ulcer (Resolved) Colitis (Resolved) Left leg cellulitis (Resolved) Sepsis (Resolved) Surgical wound dehiscence (Resolved)
[2019-01-13] MEDS: metFORMIN HCl 500 MG Tablet PO (08:21)
[2019-01-13] MEDS: Multivitamins,Therapeutic Tablet 1 TABLET PO (08:21)
[2019-01-13] MEDS: Cyanocobalamin 500 MCG Tablet 1000 MCG PO (08:23)
[2019-01-13] MEDS: oxyCODONE 5 MG Tablet 15 MG PO (10:49)
[2019-01-13] MEDS: Ascorbic Acid 500 MG Tablet 1000 MG PO (10:50)
[2019-01-13] MEDS: Furosemide 20 MG Tablet PO (10:51)
[2019-01-13] MEDS: APIXABAN 2.5 MG TABLET PO (10:51)
[2019-01-13] MEDS: prednisoLONE eye drops (5 mL) 1 DROP OPTH.BTL 1 DRP RIGHT EYE (10:51)
[2019-01-13] MEDS: prednisoLONE eye drops (5 mL) 1 DROP OPTH.BTL 1 DRP LEFT EYE (10:52)
--- NOTE | 2019-01-13 11:15 | CASEMGMT ---
RN CM Face to Face with patient for initial transition planning/care coordination assessment. RN CM introduced self and role at [facility]. Patient sitting in chair, alert and oriented. Patient willing to participate in assessment and is able to answer all questions appropriately. Care providers, pharmacy, and demographics verified. Patient wishes to discharge home, denies need for home health at this time. Patient states she has no further needs or concerns at this time. CM to follow for discharge planning needs that may arise. PCP: Chente Daigle Specialists: Zenaida, oncologist Preferred Pharmacy:[facility] Insurance: [facility] Prescription Benefit:none Living Will/HPOA: yes, son Luis Keys and daughter Chantell Carlos LNOK: son and daughters Living Arrangements: Patient lives alone in 2 story home with bed and bath on first floor. Patient independent Transportation: daughters DME/HHC: Patient has shower chair, cane, walker, daughter has nebulizer for patient. Patient has had [facility] HHC in the past Disposition Plan: Patient to discharge home with family support and follow-up plans in place. Shelbi RAMIREZ, RN, CM
[2019-01-13 11:46] LABS: Bedside Glucose 236 mg/dL (70-110)
[2019-01-13] MEDS: Glucerna Shake 120 ML LIQUID PO (12:26)
--- NOTE | 2019-01-13 12:42 | CASEMGMT ---
LW/POA forms are not on the chart. SW spoke w/pt, let her know this. She states she is aware, and thinks she knows where they are at home. SW asked pt to bring in the forms as able. Pt states understanding. MICHAELLE Vu
--- NOTE | 2019-01-13 12:43 | DCINST_ITS ---
- Discharge Diagnoses Current Active Problems: Acute exacerbation of asthma You will use the following diet at home:: Other - Resume previous diet Your food should be the consistency of: Regular Your liquids should be the consistency of: Regular/Thin Discharge Activity: - - Avoid exposure to any strong smells such as bleach, cleaning products, strong colognes or perfumes, paint fumes and smoke of any kind. Avoid sudden exposure to cold air because this can cause bronchospasm. You may want to cover your mouth when you go outside in the winter. Avoid exposure to anyone who is sick with a cough or sore throat. Call your doctor if you observe: Fever of 101 or Higher, Shortness of breath, Dizziness, Fainting spells, Chest pain Additional Instructions: Do NOT go into the laundry for the next few days and have some one open the windows and air the place out. I gave you a list of the things to avoid when you have asthma. Try and adhere to this and you will have less admissions for exacerbations of asthma. Good to see you and as always I am happy to take care of you any time you are in the hospital. Pending Tests on Discharge: none Allergies/Adverse Reactions: Allergies clindamycin Allergy (Verified 01/09/19 12:46) Other iodine Allergy (Verified 01/12/19 15:07) rash/incoherent meperidine HCl [From Demerol] Allergy (Verified 01/12/19 15:07) Nausea/vomiting/diarrhea Penicillins Allergy (Verified 01/12/19 15:20) Itching/hives adhesive tape Adverse Reaction (Verified 01/12/19 15:07) blisters BLISTERS aspirin Adverse Reaction (Verified 01/12/19 15:07) nosebleeds diazepam [From Valium] Adverse Reaction (Verified 01/09/19 12:46) Nausea/Vom/Diarrhea egg Adverse Reaction (Verified 01/09/19 12:46) Diarrhea methadone Adverse Reaction (Verified 01/09/19 12:46) Upset Stomach morphine Adverse Reaction (Verified 01/09/19 12:46) Nausea/Vom/Diarrhea sulfamethoxazole [From Bactrim] Adverse Reaction (Verified 01/09/19 12:46) Nausea/Vom/Diarrhea trimethoprim [From Bactrim] Adverse Reaction (Verified 01/09/19 12:46) Nausea/Vom/Diarrhea Medications to take at Discharge Acetaminophen [Tylenol] 325 mg PO Q6H PRN PRN 05/29/15 Cyanocobalamin [Vitamin B12] 1,000 mcg PO DAILY@0800 05/29/15 cycloBENZAPRine HCl [Flexeril] 10 mg PO QHS 05/29/15 metFORMIN HCl [Glucophage] 500 mg PO BIDCM 05/29/15 Apixaban [Eliquis] 2.5 mg PO BID 06/12/15 Furosemide [Lasix] 20 mg PO DAILY 07/16/15 Oxycodone [Oxyir] 5 mg PO Q4H PRN PRN #60 tablet 07/20/15 proMETHazine tablet [Phenergan tablet] 25 mg PO 4X/DAY PRN PRN #20 tablet 07/20/15 Albuterol IH (ProAir) [Proair Hfa] 2 puff INHALATION Q6H PRN PRN 05/27/16 Ondansetron HCl [Zofran] 4 mg PO 4X/DAY PRN PRN 05/27/16 Sumatriptan Succinate [Imitrex] 50 mg PO .X1 PRN 05/27/16 Oxycodone HCl [Oxycodone HCl ER] 15 mg PO BID 12/25/16 Cholecalciferol (VIT D3) [Vitamin D3] 2,000 unit PO DAILY 04/01/18 Ascorbic Acid [C-1000 with Kelley Hips] 1,000 mg PO DAILY 01/12/19 DiphenhydrAMINE [Benadryl] 25 mg PO BID PRN PRN 01/12/19 Lorazepam [Ativan] 0.25 - 0.5 mg PO Q6H PRN PRN 01/12/19 Multivit-Min/Iron/Folic/Lutein [Centrum Silver Women Tablet] 1 tab PO DAILY 01/12/19 prednisoLONE eye drops (5 mL) [Pred Forte eye drops (5 mL)] 1 drp LEFT EYE BID 01/12/19 prednisoLONE eye drops (5 mL) [Pred Forte eye drops (5 mL)] 1 drp RIGHT EYE DAILY 01/12/19 Ipratropium/Albuterol Sulfate [Duoneb] 3 ml INHALATION Q4HWA.RT #120 ampul.neb 01/13/19 Prednisone 10 mg PO UD #30 tab 01/13/19 The following prescriptions were given: Ipratropium/Albuterol Sulfate [Duoneb] 3 ml INHALATION Q4HWA.RT #120 ampul.neb Transmission Status: Pending to [facility] Prednisone 10 mg PO UD #30 tab Prescription Printed Primary Care Physician: Chente Daigle MD [Primary Care Provider] - Please follow up with your Primary Care Physician in: next week Test Results: Test results from this visit will be discussed in further detail at your follow- up appointment, if applicable. Proposed Discharge Date: 01/13/19
--- NOTE | 2019-01-13 12:58 | DS.PCM_ITS ---
Discharge Date and Diagnosis Date of Admission: 01/12/19 Date of Discharge: 01/13/19 - Primary Discharge Diagnosis Active and Suspected Problems Acute exacerbation of asthma (Acute) Leukopenia Thrombocytopenia - Secondary Discharge Diagnosis Chronic Problems Multiple thyroid nodules (Chronic) Thyromegaly (Chronic) Bilateral lower extremity edema (Chronic) Lymphedema of both lower extremities (Chronic) Melanoma (Chronic) Asthma (Chronic) Reported, severity unknown History of DVT (deep vein thrombosis) (Chronic) History of pulmonary embolism (Chronic) Type II diabetes mellitus (Chronic) Cancer of ovary (Chronic) Anemia (Chronic) Venous insufficiency (Chronic) Poor dentition (Chronic) Hospital Course and Treatment Imaging Results: Clinical Impression(s) from Imaging Studies Chest X-Ray 01/12/19 08:31 IMPRESSION: Mild degree of vascular congestion with superimposed mild degree of increased markings at the lung bases suggestive of atelectasis. Electronically Signed: Mitchel Diaz, at 9:04 EDT , Service support , Soft Tissue Neck CT 01/12/19 09:19 IMPRESSION: Thyroid enlargement with bilateral thyroid nodules worse on the right side. Electronically Signed: Mitchel Diaz, at 12:40 EDT , Service support , none Operations: None Procedures: None Summary of Care Provided: Mrs. Keys is a 73-year-old female with a past medical history of bilateral lower extremity lymphedema, asthma, chronic renal failure stage III, history of melanoma on chemotherapy, chronic anticoagulation with Eliquis, VTE, type 2 diabetes mellitus, ovarian cancer, chronic anemia and obesity who presented to the emergency department at [facility] on 01/12/2019 complaining of shortness of breath and a change in her voice. She had been trying to rid her laundry room of fleas and used straight bleach on the floor in an enclosed space with no windows open and became acutely SOB. Chemistries and CBC were unremarkable. Chest x-ray showed no acute cardiopulmonary process. A soft tissue neck CT showed a patent airway with thyroid enlargement and bilateral thyroid nodules. She was admitted to the hospital with acute exacerbation of asthma and started on intravenous steroids with transition to prednisone in 24 hours, and nebulized bronchodilators. On 01/13/2019 she was afebrile. Vital signs were stable and she was 100% saturated on room air. She was hoarse but denies any difficulty swallowing and denied SOB. She was discharged home with a RX for Prednisone taper and Duoneb aerosol soln. She will follow up with Dr. Chente Daigle in 1 week. PHYSICAL EXAM: GENERAL: alert, oriented X 3, Cooperative, NAD ORAL: moist mucosa, no mucosal lesions NECK: No JVD, supple, trachea midline, no cervical nodes LUNGS: CTA, symmetric chest expansion, mildly diminished but with fair BS's HEART: RRR, Normal S1 and S2, no rub, no gallop, no murmur ABDOMEN: soft, NT, ND, BS present, no guarding with palpation, colostomy bag present EXTREMITIES: + edema, no cyanosis, no calf tenderness, stasis hyperpigmentation present SKIN: No rashes, no breakdown NEUROLOGIC: no focal neurologic deficits PSYCH: appropriate, normal affect, pleasant This note was generated with WordWatch dictation software. It may contain incorrect words, spelling, and punctuation that were not noted in checking the note before signing. - Physical Exam Vital Signs Temp Pulse Resp BP Pulse Ox 97.6 F L 87 18 110/51 L 96 01/13/19 07:46 01/13/19 11:18 01/13/19 11:18 01/13/19 07:46 01/13/19 07:46 Oxygen Delivery Method Room Air Weight: 201 lb 14.4 oz Body Mass Index (BMI) 39.4 Finger Stick Blood Glucose 210 Intake and Output for Last 24 Hours 01/11/19 01/12/19 01/13/19 23:59 23:59 23:59 Intake Total 410 / 785 615 / 615 Output Total 200 / 200 350 / 350 Balance 210 / 585 265 / 265 Laboratory Tests Past 24 Hrs 01/13/19 01/13/19 05:43 05:43 WBC 2.4 L RBC 3.65 L Hgb 9.7 L Hct 32.4 L MCV 88.8 MCH 26.6 L MCHC 29.9 L RDW Std Deviation 51.6 H RDW Coeff of Zuri 15.8 H Plt Count 130 L MPV 10.1 Immature Gran % (Auto) 0.400 Neut % (Auto) 70.7 H Lymph % (Auto) 15.7 L [place] % (Auto) 13.2 H Eos % (Auto) 0.0 Baso % (Auto) 0.0 Absolute Neuts (auto) 1.7 L Absolute Lymphs (auto) 0.37 L Nucleated RBC % 0 Diff Path Review May foll Sodium 141 Potassium 4.1 Chloride 108 H Carbon Dioxide 28.0 Anion Gap 5 BUN 25 H Creatinine 1.31 H Estim Creat Clear Calc 27.47 Est GFR (MDRD) Af Amer 51 L Est GFR (MDRD) Non-Af 42 L BUN/Creatinine Ratio 19.1 Glucose 175 H Calcium 8.2 L POC Glucose 01/13/19 01/13/19 01/12/19 11:36 06:38 22:12 POC Glucose 236 H 169 H 309 H 01/12/19 17:10 POC Glucose 236 H Discharge Activity: - - Avoid exposure to any strong smells such as bleach, cleaning products, strong colognes or perfumes, paint fumes and smoke of any kind. Avoid sudden exposure to cold air because this can cause bronchospasm. You may want to cover your mouth when you go outside in the winter. Avoid exposure to anyone who is sick with a cough or sore throat. Call your doctor if you observe: Fever of 101 or Higher, Shortness of breath, Dizziness, Fainting spells, Chest pain Home Medications: Medications to take at Discharge Acetaminophen [Tylenol] 325 mg PO Q6H PRN PRN 05/29/15 Cyanocobalamin [Vitamin B12] 1,000 mcg PO DAILY@0800 05/29/15 cycloBENZAPRine HCl [Flexeril] 10 mg PO QHS 05/29/15 metFORMIN HCl [Glucophage] 500 mg PO BIDCM 05/29/15 Apixaban [Eliquis] 2.5 mg PO BID 06/12/15 Furosemide [Lasix] 20 mg PO DAILY 07/16/15 Oxycodone [Oxyir] 5 mg PO Q4H PRN PRN #60 tablet 07/20/15 proMETHazine tablet [Phenergan tablet] 25 mg PO 4X/DAY PRN PRN #20 tablet 07/20/15 Albuterol IH (ProAir) [Proair Hfa] 2 puff INHALATION Q6H PRN PRN 05/27/16 Ondansetron HCl [Zofran] 4 mg PO 4X/DAY PRN PRN 05/27/16 Sumatriptan Succinate [Imitrex] 50 mg PO .X1 PRN 05/27/16 Oxycodone HCl [Oxycodone HCl ER] 15 mg PO BID 12/25/16 Cholecalciferol (VIT D3) [Vitamin D3] 2,000 unit PO DAILY 04/01/18 Ascorbic Acid [C-1000 with Kelley Hips] 1,000 mg PO DAILY 01/12/19 DiphenhydrAMINE [Benadryl] 25 mg PO BID PRN PRN 01/12/19 Lorazepam [Ativan] 0.25 - 0.5 mg PO Q6H PRN PRN 01/12/19 Multivit-Min/Iron/Folic/Lutein [Centrum Silver Women Tablet] 1 tab PO DAILY 01/12/19 prednisoLONE eye drops (5 mL) [Pred Forte eye drops (5 mL)] 1 drp LEFT EYE BID 01/12/19 prednisoLONE eye drops (5 mL) [Pred Forte eye drops (5 mL)] 1 drp RIGHT EYE DAILY 01/12/19 Ipratropium/Albuterol Sulfate [Duoneb] 3 ml INHALATION Q4HWA.RT #120 ampul.neb 01/13/19 Prednisone 10 mg PO UD #30 tab 01/13/19 Following Prescrptions Were Given to Patient: Ipratropium/Albuterol Sulfate [Duoneb] 3 ml INHALATION Q4HWA.RT #120 ampul.neb Transmission Status: Received by [facility] Prednisone 10 mg PO UD #30 tab Prescription Printed Primary Care Physician: Chente Daigle MD [Primary Care Provider] - Please follow up with your Primary Care Physician in: next week Disposition: Home Minutes spent on discharge:: 30 Patient Condition:: Good Medical Necessity - Tobacco Use Smoking Status: Never smoker Tobacco Use: Non-smoker Meaningful Use Info Meaningful Use Diagnoses (Choose all that apply): None applicable Code Visit OBSV E&M: 11115 Observation care discharge
[2019-01-13] MEDS: oxyCODONE 5 MG Tablet PO (14:34)
[2019-01-13 14:43] LABS: Pathologist Review Reviewed
== END 2019-01-13 17:07 | disposition home or self-care (01) ==
LOC: ED 09:01 → MS3 14:36
PROVIDERS: Admitting Provider Student in an Organized Health Care Education/Training Program; Emergency Provider Emergency Medicine; Family Provider Family Medicine; PCP Family Medicine; Referring Provider Student in an Organized Health Care Education/Training Program; Visit Provider Internal Medicine
DX: J45.901 Unspecified asthma with (acute) exacerbation (principal); D72.819 Decreased white blood cell count, unspecified; D69.6 Thrombocytopenia, unspecified; K12.2 Cellulitis and abscess of mouth; E04.1 Nontoxic single thyroid nodule; Z86.711 Personal history of pulmonary embolism; Z86.718 Personal history of other venous thrombosis and embolism; Z79.899 Other long term (current) drug therapy; Z79.01 Long term (current) use of anticoagulants; Z79.84 Long term (current) use of oral hypoglycemic drugs; Z79.52 Long term (current) use of systemic steroids; E11.22 Type 2 diabetes mellitus with diabetic chronic kidney disease; N18.3 Chronic kidney disease, stage 3 (moderate); C43.9 Malignant melanoma of skin, unspecified; E66.9 Obesity, unspecified; Z68.39 Body mass index [BMI] 39.0-39.9, adult; Z71.3 Dietary counseling and surveillance
CPT/HCPCS: 36415; 70491; 71045; 80048; 82962; 84484; 85025; 93005; 94640; 96365; 96375; 97162; 97166; 97802; 99218; 99285; J7050; Q9967; A4216; G0378

== ENCOUNTER → 2019-02-06 10:08 | Outpatient (CLI) | payer MEDICARE, SELFPAY ==
[2019-01-12 15:01] VITALS: BMI 39.4
--- NOTE | 2019-02-06 10:30 | PET_ITS ---
EXAMINATION: FDG PET CT INDICATIONS: A 73-year-old female with history of malignant melanoma presenting for restaging examination. COMPARISON EXAMINATION: CT of the neck report dated 01/12/19. INDEX LESION SIZE SUV INTERPRETATION Lower pelvis rectum-rectal vault, right perivaginal region 32.5 mm x 45.0 mm largest (frame 39) 8.5 (max) Fulfills quantitative criteria for viable neoplasm Right anterior neck level 25.1 mm (frame 199) 8.0 Histopathologic analysis is recommended TECHNIQUE: Following the intravenous administration of 15.17 mCi of F-18 deoxyglucose via the left antecubital fossa, multiplanar image acquisitions of the head, neck, chest, abdomen, pelvis and lower extremities to the level of the bilateral feet, obtained at one hour post radiopharmaceutical administration contemporaneously interpreted with the current CT of the head, neck, chest, abdomen, pelvis and lower extremities to the level of the bilateral feet, dated 02/06/[address] of the neck report dated 01/12/19 reveal: SERUM GLUCOSE LEVEL: 129 mg/dl. HEIGHT: 61 inches. WEIGHT: 200 lbs. FINDINGS: 1. There is an increase in glucose metabolism identified in the lower pelvis contiguous to the rectum-rectal vault and right perivaginal region generating a calculated maximum standard uptake value of 8.5. The maximal axial diameter of the corresponding metabolic, morphologic abnormality on review of CT of the pelvis dated 02/06/19 is 32.5 mm (transverse) x 45.0 mm (AP). 2. A nodular focus of increased FDG concentration is demonstrated in the right anterior neck involving level generating a calculated maximum standard uptake value of 8.0. The maximal axial diameter of the corresponding metabolic, morphologic abnormality on review of CT of the neck dated 02/06/19 is 25.1 mm (AP). 3. Normal physiologic distribution of the radiopharmaceutical is apparent in the hepatic (3.4) and splenic parenchyma, both renal units, bladder and visualized intestinal tract. There is symmetric glucose metabolism identified in the occipital, parietal, temporal and frontal lobes of the cerebral cortex, with normal visualization of the cerebellar hemispheres and basal ganglia. Diffuse intestinal tract activity is noted throughout all four quadrants of the abdominal-pelvic retroperitoneum, mesentery consistent with normal physiologic distribution of the radiopharmaceutical. Prominent radiopharmaceutical concentration is defined in the anterior neck contiguous to the laryngeal structures extending from the anterior commissure to the arytenoid cartilage bilaterally without evidence of soft tissue thickening most consistent with physiologic distribution of the radiopharmaceutical. Prominent radiopharmaceutical concentration is defined in the glenohumeral compartments of both shoulders commensurate with activated leukocytes associated an inflammatory arthritic presentation. Pertinent CT findings are as follows. CHEST: A linear density defined in the left mid-lower lung field, left lower lobe demonstrates no evidence of quantitatively significant increased FDG concentration. ABDOMEN AND PELVIS: The gallbladder is surgically absent. Calcifications are defined in both kidneys. Filter placement is visualized in the inferior vena cava. Atherosclerotic calcification is defined in the abdominal aorta without evidence of dilatation, aneurysm formation. Surgical clips are identified in the pelvic mesentery. Bilateral inguinal soft tissue densities with fatty hilus formation are non-glucose avid. The uterus appears surgically absent. Abdominal-pelvic wall diastasis is noted with associated intestinal tract herniation. A fat-containing paramedian anterior pelvic herniation is defined. SKELETAL: Degenerative changes defined in the cervical, thoracic and lumbar spine demonstrate no evidence for glucose hypermetabolism. A right hip arthroplasty is demonstrated. PET/PET/CT Tumor Base -Thigh Subs IMPRESSION: 1. ABNORMAL EXAMINATION INDICATIVE OF MALIGNANT-VIABLE NEOPLASM. 2. Increased glucose concentration noted in the lower pelvis contiguous to the rectum-rectal vault and right perivaginal region fulfills quantitative criteria for viable neoplasm. 3. Enhanced fluorine-labeled glucose uptake noted in the right anterior neck appears to correspond to the anatomic abnormality defined CT of the neck report dated 01/12/19. Histopathologic investigation should be considered secondary to the quantitative degree of uptake. Electronic Signature Brooks Ku D.O. Electronically Signed: Brooks Ku DO at 23:08 EDT Tel , Service support ,
== END ==
LOC: ONC 10:10
PROVIDERS: Family Provider Family Medicine; PCP Family Medicine; Referring Provider Internal Medicine Hematology & Oncology; Visit Provider Internal Medicine Hematology & Oncology
DX: C52 Malignant neoplasm of vagina (principal)
CPT/HCPCS: 78815; A9552

== ENCOUNTER → 2019-03-30 | Outpatient (CLI) | payer MEDICARE, SELFPAY ==
[2019-01-12 15:01] VITALS: BMI 39.4
--- NOTE | 2019-03-30 | IMM_PTH ---
PATIENT: KANU AJ LOC: [facility] U#:[id number] AGE/SX: 73/F ROOM: RE03/30/[address]: Dr. Abbey Moy MD : 1945 BED: DIS: 03/30/2019 SPEC #: [id number] RECD: 04/06/19 13:33 STATUS: DIEGO REQ #: [id number] RADHA: 03/30/19 00:[address]: Abbey Moy DEPT: IMMUNOHISTOCHEMISTRY RECD BY: Norma Viera ENTERED: 04/06/19 13:35 SP TYPE: IMMUNO OTHR DR: Dr. Chente Daigle MD Tissues: A - Thyroid gland, NOS Procedures: [place]-1 (initial) TTF1 (add) S-100 (add) PHYSICIAN & INSTITUTION [place] [address] SPECIMEN INFORMATION: Tissue Source: A - Fine needle aspiration, right thyroid nodule Clinical Info: Thyroid nodules Specimen Number: [id number] CPT code: 83236, 28894 x2 METHODOLOGY: Deparaffinized sections of prefer/formalin-fixed tissue or PAP/DQ stained slides are incubated with monoclonal/polyclonal antibodies/oligonucleotide probes. Localization is made via biotin free immunoperoxidase method. Appropriate controls are performed and reacted as expected. Results on target cell population are indicated in the following table: RESULTS: ANTIBODY / CLONE RESULT Block A S-100 (4C4.9) negative MART-1 (A-103) negative TTF-1 (8G7G3/1) positive These tests were developed and their performance characteristics determined by [facility]. They may not have been cleared or approved by the U.S. Food and Drug Administration. The FDA has determined that such clearance or approval is not necessary. The above immunohistochemical/dualISH markers are ordered and reviewed by the Pathologist. INTERPRETATION: A. Right thyroid nodule, fine needle aspiration: Negative for melanocytic lesion. SJ:malina 04/07/19
--- NOTE | 2019-03-30 14:40 | FLU_PTH ---
PATIENT: KANU AJ LOC: [facility] U#:[id number] AGE/SX: 73/F ROOM: RE03/30/[address]: Dr. Abbey Moy MD : 1945 BED: DIS: 03/30/2019 SPEC #: [id number] RECD: 03/30/19 17:02 STATUS: DIEGO GUZMAN #: [id number] RADHA: 03/30/19 14:[address]: Abbey Moy DEPT: CYTOLOGY RECD BY: Hung Cheng ENTERED: 03/31/19 09:05 SP TYPE: Fluid OTHR DR: Dr. Chente Daigle MD Tissues: A - Thyroid gland, NOS B - Thyroid gland, NOS Procedures: Special Stain Group II Surgery Specimen Level IV Cytospin Fluid HEADER OPERATION: Ultrasound guided fine needle aspiration, right thyroid PRE-OP DIAGNOSIS: Thyroid nodules TISSUE SUBMITTED: A. FNA right thyroid, slides x8, B. FNA right thyroid container with fluid DIAGNOSIS CYTOLOGY A. Fine needle aspiration, right thyroid nodule (cytospin and cell block): Adequate for evaluation. Atypia of undetermined significance. B. Fine needle aspiration, right thyroid nodule (smears): Adequate for evaluation. Atypia of undetermined significance. AM:malina 04/03/19 COMMENT B. Immediate cytologic evaluation to determine adequacy is not applicable. This case was reviewed and diagnosis discussed with Dr. Moy on 04/06/[address] Hickman. CYTOLOGY STUDY Slides are reviewed. CYTOLOGY GROSS A. Received is 35 ml of red cloudy fluid labeled with the patient's name and and designated per the requisition as FNA right thyroid. Submitted for cytology preparation including cell block. B. Received are 8 smears labeled with the patient's name and designated per the requisition as FNA right thyroid. Submitted for staining. /CC:cc 03/31/19 TC:? CPT: 47036 x2, 29800 ADDENDUM ADDENDUM ADDENDUM ADDENDUM ADDENDUM ADDENDUM ADDENDUM 04/07/2019 13:41 ADDENDUM 04/07/2019 13:41 ADDENDUM 04/07/2019 13:41 ADDENDUM 04/07/2019 13:41 ADDENDUM 04/07/2019 13:41 A. Right thyroid nodule fluid, FNA (cytospin and cell block): As per Dr. Moy, the patient has remote history of melanoma. This case is discussed with on 04/06/19. Immunohistochemistry ([id number]) is negative for melanocytic lesion. SJ:malina 04/07/19
== END | disposition home or self-care (01) ==
LOC: LABSPEC 03-31 06:27
PROVIDERS: Family Provider Family Medicine; PCP Family Medicine; Referring Provider Surgery; Visit Provider Surgery
DX: E04.1 Nontoxic single thyroid nodule (principal); R89.7 Abnormal histological findings in specimens from other organs, systems and tissues
CPT/HCPCS: 88108; 88305; 88313; 88341; 88342

== ENCOUNTER 2019-04-22 10:42 | Inpatient (IN) | payer MEDICARE, SELFPAY ==
[2019-01-12 15:01] VITALS: BMI 39.4
[2019-04-22] VITALS (8 sets, daily range): BP systolic 101–158; BP diastolic 54–77; PULSE 82–101; RESP 16–22; TEMP 36.6–37.5; O2SAT 92–97; BMI 42.5; BMI 41.9; BMI 42.0
--- NOTE | 2019-04-22 11:15 | ED.DCSUM_ITS ---
History of Present Illness Chief Complaint: General Illness Informant: Patient, Family Onset: Weeks Narrative: Patient presents with what she believes is an allergic reaction to Bactrim. Patient states she had cellulitis on both of her lower extremities for the past month or so. She was on Keflex for 20 days without any improvement. This was prescribed by Dr. Estevez. They attempted to contact the wound care center but were not getting a response. Patient was seen by Dr. Chinchilla at her PCPs office a few days ago. He wrote her for Bactrim in addition to Keflex. Patient states that last night she had started noticing some swelling of her upper lip. She has a headache and feels dizzy. She states she is feels like she is shaky. - Past Medical History (1) Anemia Status: Chronic (2) Asthma Status: Chronic Comment: Reported, severity unknown (3) Bilateral lower extremity edema Status: Chronic (4) Cancer of ovary Status: Chronic (5) History of DVT (deep vein thrombosis) Status: Chronic (6) History of pulmonary embolism Status: Chronic (7) Lymphedema of both lower extremities Status: Chronic (8) Melanoma Status: Chronic (9) Multiple thyroid nodules Status: Chronic (10) Type II diabetes mellitus Status: Chronic (11) Venous insufficiency Status: Chronic Past Medical History - Allergies and Home Meds Allergies/Adverse Reactions: Allergies clindamycin Allergy (Verified 04/22/19 10:46) Other iodine Allergy (Verified 04/22/19 10:46) rash/incoherent meperidine HCl [From Demerol] Allergy (Verified 04/22/19 10:46) Nausea/vomiting/diarrhea Penicillins Allergy (Verified 04/22/19 10:46) Itching/hives adhesive tape Adverse Reaction (Verified 04/22/19 10:46) blisters BLISTERS aspirin Adverse Reaction (Verified 04/22/19 10:46) nosebleeds diazepam [From Valium] Adverse Reaction (Verified 04/22/19 10:46) Nausea/Vom/Diarrhea egg Adverse Reaction (Verified 04/22/19 10:46) Diarrhea methadone Adverse Reaction (Verified 04/22/19 10:46) Upset Stomach morphine Adverse Reaction (Verified 04/22/19 10:46) Nausea/Vom/Diarrhea sulfamethoxazole [From Bactrim] Adverse Reaction (Verified 04/22/19 10:46) Nausea/Vom/Diarrhea trimethoprim [From Bactrim] Adverse Reaction (Verified 04/22/19 10:46) Nausea/Vom/Diarrhea Primary Care Physician: Isidro Chinchilla MD [Primary Care Provider] - Doctors: Dr. Estevez Prior records reviewed: Yes Surgical History: cholecystectomy, hysterectomy - For uterine fibroids, total hip arthroplasty - Right, total knee arthroplasty - Left, - - Surgery for bilateral carpal tunnel syndrome. Resection of ovarian cancer at [facility] in 2016, debridement of the abdominal wall with wound closure by Dr. Garza in June 2015 Smoking Status: Never smoker - Family History Maternal Family History: Reports: No pertinent history, - - no cancer Paternal Family History: Reports: No pertinent history Review of Systems General: Reports: Fever, Subjective Eyes: Denies: Visual changes - bilaterally ENT: Reports: - - Upper lip swelling. Denies: Bilateral ear pain Cardiovascular: Denies: Chest pain Respiratory: Denies: Dyspnea, Cough Gastrointestinal: Denies: Abdominal pain, Nausea, Vomiting, Diarrhea Genitourinary: Denies: Dysuria Musculoskeletal: Reports: Swelling, Extremity Pain Skin: Reports: Rash Neurological: Denies: Headache Allergy: Reports: Swelling of the mouth. Denies: Uticaria Physical Exam Vital Signs/Narrative: Vital Signs Temp Pulse Resp BP Pulse Ox 04/22/19 10:47 98.7 F 101 H 18 141/77 H 93 Inital Vital Signs reviewed: Yes General: Well nourished, Well developed Head: Normocephalic ENT: Moist mucous membranes Neck: Supple Cardiovascular: Regular rate, Regular rhythm Respiratory: No distress, CTA bilaterally Abdomen: Soft, Nontender, Nondistended Extremities: - - Chronic lymphedema both lower extremities. Distal half of the lower extremities are erythematous and warm to the touch. I do not appreciate any open wounds. Neurological: Alert, Oriented x3 Psychological: Normal affect Diagnostic/Tx/Re-eval Laboratory Results 04/22/19 04/22/19 04/22/19 11:23 11:23 11:23 WBC 8.0 RBC 3.94 L Hgb 11.1 L Hct 35.0 L MCV 88.8 MCH 28.2 MCHC 31.7 L RDW Std Deviation 49.7 H RDW Coeff of Zuri 15.4 H Plt Count 135 L MPV 9.5 Immature Gran % (Auto) 0.600 Neut % (Auto) 87.8 H Lymph % (Auto) 4.2 L [place] % (Auto) 6.9 Eos % (Auto) 0.4 Baso % (Auto) 0.1 Absolute Neuts (auto) 7.0 Absolute Lymphs (auto) 0.33 L Nucleated RBC % 0 Sodium 136 Potassium 4.2 Chloride 102 Carbon Dioxide 28.0 Anion Gap 6 BUN 23 H Creatinine 1.64 H Estim Creat Clear Calc 23.05 Est GFR (MDRD) Af Amer 39 L Est GFR (MDRD) Non-Af 33 L BUN/Creatinine Ratio 14.0 Glucose 235 H Lactic Acid 1.9 Calcium 9.0 - Medical Decision Making Patient was given a dose of steroid and Benadryl here. On repeat evaluation 1 hour after meds she does report that she is feeling improved. She is not feeling shaky. Lip swelling is mildly improved. Discussed the cellulitis with both patient and daughter at bedside. She has required admission and developed sepsis from this previously. She is already been on several weeks of antibiotics without appropriate response. I will give her a dose of vancomycin we will admit her for further close monitoring. ED Disposition - Plan for ED Patient: Disposition: Acute Care Hospital [facility] Diagnosis: Cellulitis, Allergic drug reaction Referrals: Isidro Chinchilla MD [Primary Care Provider] -
[2019-04-22] MEDS: MethylPREDNISolone 125 MG/2 ML Vial IV (11:32)
[2019-04-22] MEDS: DiphenhydrAMINE 50 MG/ML Syringe 12.5 MG IV (11:32)
[2019-04-22 11:34] LABS: Absolute Lymphocyte Count 0.33 X10^3/uL (0.83-4.51); Basophil# 0.01 X10^3/uL; Basophil% 0.1 % (0-1); Eosinophil# 0.03 X10^3/uL; Eosinophils% 0.4 % (0-5); Hemoglobin 11.1 g/dL (12.0-15.0); Lymphocyte # 0.33 X10^3/ul (4.0); Lymphocyte % 4.2 % (19-41); Mean Corp Hgb Conc 31.7 g/dL (32-36); Mean Corpuscular Hgb 28.2 pg (27.0-32.0); Mean Corpuscular Volume 88.8 fL (81-99); Mean Platelet Vol. 9.5 fl (6.2-12.0); Monocyte# 0.55 X10^3/uL; Monocyte% 6.9 % (0-10); NRBC Flagged by Analyzer 0 % (0-5); Neutrophil # 6.98 X10^3/uL (2.7-7.7); Neutrophil % 87.8 % (47-70); POSITIVE DIFFERENTIAL YES; Platelet Count 135 K/mm3 (150-450); RBC Distribution Width CV 15.4 % (11.6-14.6); RBC Distribution Width SD 49.7 fl (35.1-43.9); Red Blood Count 3.94 M/mm3 (4.2-5.4)
[2019-04-22 11:39] LABS: Differential Indicated SCAN CRITERIA MET
[2019-04-22 11:52] LABS: Anion Gap 6 (5-15); BUN 23 mg/dL (7-18); Chloride 102 mmol/L (98-107); Creatinine, Serum 1.64 mg/dL (0.55-1.02); EST Glomerular Filtration Rate 33 mL/min (>60); Est Glom Filt Rate - Afr Amer 39 mL/min (>60); Estimated Creatinine Clearance 23.05 ml/min; Glucose 235 mg/dL (74-106); Potassium 4.2 mmol/L (3.5-5.1); Sodium Level 136 mmol/L (136-145)
[2019-04-22 12:00] LABS: Lactic Acid 1.9 mmol/L (0.4-1.9)
--- NOTE | 2019-04-22 13:41 | NURSING ---
PER DR KEYS NO VANCOMYCIN TO BE GIVEN TO PATIENT.
--- NOTE | 2019-04-22 15:12 | PCM.HP.STD ---
Problem List (1) Redness of the lower extremities Status: Acute (2) Bilateral lower extremity edema Status: Chronic History of Present Illness Date of Admission: 04/22/19 Chief Complaint: Increased lower leg edema, redness of the lower legs The patient is a 73 year old F was seen in the emergency room at [facility] with a chief complaint of increasing edema to her lower legs over the last 2 to 3 weeks, in addition she is complained of increased redness and warmth to her lower legs throughout the same time period. Patient has been placed Keflex the last 2-1/2 weeks, recently Bactrim was added to her antibiotic coverage. She complains of swelling of her upper lip since she has been on the Bactrim, she denies any breathing problems. Patient denies any chills or fevers. Lab work was obtained which showed a normal white blood cell count, creatinine was elevated at 1.64, BUN was 23. Glucose was 235. Examination revealed both lower legs to be reddened and swollen, they were warm to the touch. Patient will be admitted to [place] [address] for lymphedema and cellulitis of the lower legs, I will place her on an IV Lasix drip and administer Ancef IV. Labs will be monitored Past Medical History Past Medical History (Chronic Problems): Chronic Problems Multiple thyroid nodules (Chronic) Thyromegaly (Chronic) Bilateral lower extremity edema (Chronic) Lymphedema of both lower extremities (Chronic) Melanoma (Chronic) Asthma (Chronic) Reported, severity unknown History of DVT (deep vein thrombosis) (Chronic) History of pulmonary embolism (Chronic) Type II diabetes mellitus (Chronic) Cancer of ovary (Chronic) Anemia (Chronic) Venous insufficiency (Chronic) Poor dentition (Chronic) Allergies clindamycin Allergy (Verified 04/22/19 10:46) Other iodine Allergy (Verified 04/22/19 10:46) rash/incoherent meperidine HCl [From Demerol] Allergy (Verified 04/22/19 10:46) Nausea/vomiting/diarrhea Penicillins Allergy (Verified 04/22/19 10:46) Itching/hives adhesive tape Adverse Reaction (Verified 04/22/19 10:46) blisters BLISTERS aspirin Adverse Reaction (Verified 04/22/19 10:46) nosebleeds diazepam [From Valium] Adverse Reaction (Verified 04/22/19 10:46) Nausea/Vom/Diarrhea egg Adverse Reaction (Verified 04/22/19 10:46) Diarrhea methadone Adverse Reaction (Verified 04/22/19 10:46) Upset Stomach morphine Adverse Reaction (Verified 04/22/19 10:46) Nausea/Vom/Diarrhea sulfamethoxazole [From Bactrim] Adverse Reaction (Verified 04/22/19 10:46) Nausea/Vom/Diarrhea trimethoprim [From Bactrim] Adverse Reaction (Verified 04/22/19 10:46) Nausea/Vom/Diarrhea Home Medications: Ambulatory Orders Medication Instructions Recorded Cyanocobalamin [Vitamin B12] 1,000 mcg PO DAILY@0800 05/29/15 cycloBENZAPRine HCl [Flexeril] 10 mg PO QHS 05/29/15 metFORMIN HCl [Glucophage] 250 mg PO BIDCM 05/29/15 Apixaban [Eliquis] 2.5 mg PO BID 06/12/15 Furosemide [Lasix] 20 mg PO BID 07/16/15 proMETHazine tablet [Phenergan 25 mg PO 4X/DAY PRN PRN #20 tablet 07/20/15 tablet] Albuterol IH (ProAir) [Proair Hfa] 2 puff INHALATION Q6H PRN PRN 05/27/16 Ondansetron HCl [Zofran] 8 mg PO TID PRN PRN 05/27/16 Oxycodone HCl [Oxycodone HCl ER] 15 mg PO BID 12/25/16 Cholecalciferol (VIT D3) [Vitamin 2,000 unit PO DAILY 04/01/18 D3] Ascorbic Acid [C-1000 with Kelley 1,000 mg PO DAILY 01/12/19 Hips] DiphenhydrAMINE [Benadryl] 25 mg PO BID 01/12/19 Lorazepam [Ativan] 0.25 - 0.5 mg PO Q6H PRN PRN 01/12/19 Brimonidine Tartrate 0.2% 1 drp EACH EYE BID 04/22/19 [Brimonidine 0.2% 5Ml Bottle] Cephalexin [Keflex] 500 mg PO Q8 04/22/19 Cetirizine HCl 10 mg PO DAILY 04/22/19 Nivolumab [Opdivo] 240 mg IV QWEEK 04/22/19 Oxycodone [Oxyir] 5 - 10 mg PO Q4H PRN PRN 04/22/19 Prednisone 10 mg PO DAILY 04/22/19 Smz/Tmp Ds [Bactrim Ds] 2 tab PO BID 04/22/19 Surgical History: cholecystectomy, hysterectomy - For uterine fibroids, total hip arthroplasty - Right, total knee arthroplasty - Left, - - Surgery for bilateral carpal tunnel syndrome. Resection of ovarian cancer at [facility] in 2015, debridement of the abdominal wall with wound closure by Dr. Garza in June 2015 Psychiatric History: No pertinent psych hx [employer] History: ovarian cancer, uterine fibroids Lives: Alone Smoking Status: Never smoker Tobacco Use: Non-smoker Alcohol: None Drugs: None - *Family History Maternal History Items: No pertinent history, - - no cancer Paternal History Items: No pertinent history Review of Systems Constitutional: Denies: Anorexia, Chills, Fever, Night Sweats, Malaise, Weakness, Weight Change, Fatigue Eyes: Denies: Cataracts, Conjunctivae Inflammation, Double vision, Drainage, Redness HEENT: Denies: Difficulty Swallowing, Dysphasia, Ear Pain, Eye Pain, Hearing Changes, Nasal bleeding, Nasal Congestion, Post Nasal Drip Cardiovascular: Denies: Chest Pain, Claudication, Chest Pressure, Chest Tightness, Edema, Heaviness, Palpitations Respiratory: Denies: Cough, Hemoptysis, Pleuritic Pain, Shortness of Breath, Shortness of breath at rest, Shortness of breath upon exertion Gastrointestinal: Denies: Abdominal Pain, Constipation, Diarrhea, Hematemesis, Hematochezia, Nausea, Melena, Vomiting Genitourinary: Denies: Dysuria, Frequency, Hematuria, Hesitancy, Nocturia, Retention, Urgency Gynecological: Denies: Breast symptoms Musculoskeletal: Denies: Back Pain, Foot Pain, Hand Pain, Joint Pain, Joint stiffness, Joint swelling, Joint Tenderness, Leg Pain Skin: Reports: Rash - Over lower legs bilaterally, Skin Changes - Over lower legs bilaterally. Denies: Dryness, Jaundice, Pruritis Neurological: Denies: Blurred vision, Double vision, Change in Speech, Slurred speech, Difficulty swallowing, Focal weakness, Headaches, Numbness, Tingling Psychiatric: Denies: Anxiety, Depression, Homicidal Ideations, Suicidal Ideations Endocrine: Denies: Change in Body Habitus, Heat/ Cold Intolerance, Polydipsia, Polyuria Hematologic/ Lymphatic: Denies: Adenopathy, Anemia, Easy Bruising, Easy Bleeding, Petechiae, Purpura VTE Information - Inpt Only VTE Present on Admission: No VTE Mechan Device Prophylaxis: None VTE Pharm Prophylaxis ordered?: No Reason prophylaxis not ordered:: Treatment Not Indicated Patient Problems: Active and Suspected Problems Cellulitis (Acute) Allergic drug reaction (Acute) Redness of the lower extremities (Acute) - Physical Exam Vitals/I&O's: Vital Signs Temp Pulse Resp BP Pulse Ox 99.4 F H 98 22 H 128/69 H 92 04/22/19 14:39 04/22/19 14:39 04/22/19 14:39 04/22/19 14:39 04/22/19 14:39 Oxygen Delivery Method Room Air Weight: 102.058 kg Body Mass Index (BMI) 42.5 Finger Stick Blood Glucose 210 General: Alert, Oriented x3, Cooperative, No apparent distress, Well developed, Well nourished HEENT: Atraumatic, PERRLA, EOMI, Normocephalic Oral: Moist Mucosa Neck: Supple, Trachea Midline, Thyroid Normal Size and Texture Lungs: Clear to auscultation, Normal air movement, No rhonchi, No wheeze, No rales Cardiovascular: Regular rate, Regular Rhythm, Normal S1, Normal S2, No murmurs, PMI Normal, No rub noted Abdomen: Bowel Sounds Present, Soft, Non Tender, Non-Distended, Obese, - - Colostomy noted Extremities: No clubbing, No cyanosis, Capillary Refill Less than 3 Seconds, Edema - Severe edema is noted over the lower legs bilaterally Skin: Rash Present - Rash present over the patient's lower legs, this appears chronic in nature, Excoriated - Superficial excoriations are noted over both lower legs Neurological: Cranial nerves II-XII grossly intact, Neuro grossly intact, Sensory exam intact to light touch and pain Psych/Mental Status: Normal Affect, Appropriate, Alert and oriented to time, place, person, mood and affect Laboratory Results 04/22/19 11:23: WBC 8.0, RBC 3.94 L, Hgb 11.1 L, Hct 35.0 L, MCV 88.8, MCH 28.2, MCHC 31.7 L, RDW Std Deviation 49.7 H, RDW Coeff of Zuri 15.4 H, Plt Count 135 L, MPV 9.5, Immature Gran % (Auto) 0.600, Neut % (Auto) 87.8 H, Lymph % (Auto) 4.2 L, [place] % (Auto) 6.9, Eos % (Auto) 0.4, Baso % (Auto) 0.1, Absolute Neuts (auto) 7.0, Absolute Lymphs (auto) 0.33 L, Nucleated RBC % 0 04/22/19 11:23: Sodium 136, Potassium 4.2, Chloride 102, Carbon Dioxide 28.0, Anion Gap 6, BUN 23 H, Creatinine 1.64 H, Estim Creat Clear Calc 23.05, Est GFR (MDRD) Af Amer 39 L, Est GFR (MDRD) Non-Af 33 L, BUN/Creatinine Ratio 14.0, Glucose 235 H, Calcium 9.0 04/22/19 11:23: Lactic Acid 1.9 Current Medications Vancomycin HCl 1,500 mg/ (Sodium Chloride) 530 mls @ 250 mls/hr IV X1 ONE Stop: 04/22/19 15:37 Last Admin: 04/22/19 14:00 Dose: Not Given Documented by: Assessment/Plan All Active Problems Cellulitis (Acute) Allergic drug reaction (Acute) Redness of the lower extremities (Acute) Acute exacerbation of extrinsic asthma (Resolved) Abdominal wall ulcer (Resolved) Acute renal insufficiency (Resolved) CSD (cat scratch disease) (Resolved) Cellulitis of left lower extremity (Resolved) Cellulitis of right lower extremity (Resolved) Colitis (Resolved) Dehydration (Resolved) Dental infection (Resolved) Left leg cellulitis (Resolved) Sepsis (Resolved) Sepsis (Resolved) Severe sepsis (Resolved) Surgical wound dehiscence (Resolved) Ulcer of right lower extremity with fat layer exposed (Resolved) #1 lymphedema of the lower legs with increased edema-patient will be admitted to [facility], placed on IV continuous infusion Lasix and labs will be monitored #2 cellulitis of the lower legs-patient will be placed on IV Ancef #3 swelling of the upper lip-etiology unclear, possibly secondary to sulfa allergy-this examiner does not see any visible upper lip swelling at this time, patient was given IV Solu-Medrol and Benadryl in the emergency room. I will continue to observe the patient for any signs or symptoms of allergic reaction #4 melanoma #5 chronic kidney disease stage III #6 type 2 diabetes-blood sugars will be monitored, sliding scale insulin will be administered Code Visit Inpatient E&M: 74659 Init Hosp L3
[2019-04-22] MEDS: Cefazolin 1 GM/50 ML BAG IV (17:05)
[2019-04-22] MEDS: 0.9% Saline Lock 10 ML Syringe IV (17:05)
[2019-04-22] MEDS: Furosemide 500 MG in Empty Viaflex 50 mL 1 EACH CONT INF (17:08)
[2019-04-22] MEDS: oxyCODONE CR 15 MG Tablet PO (17:13)
[2019-04-22] MEDS: Insulin Lispro 100 UNIT/ML INSULN.PEN SC ×2 (17:25→21:37)
[2019-04-22 17:26] LABS: Bedside Glucose 293 mg/dL (70-110)
[2019-04-22] MEDS: Glucerna Shake 120 ML LIQUID PO (17:40)
[2019-04-22] MEDS: Acetaminophen 325 MG Tablet 650 MG PO (17:55)
[2019-04-22] MEDS: APIXABAN 2.5 MG TABLET PO (21:30)
[2019-04-22] MEDS: cycloBENZAPRine HCl 10 MG Tablet PO (21:30)
[2019-04-22] MEDS: BRIMONIDINE 0.2% 5ML BOTTLE 1 DRP EACH EYE (21:30)
[2019-04-22] MEDS: oxyCODONE 5 MG Tablet PO (21:31)
[2019-04-22 22:15] LABS: Bedside Glucose 328 mg/dL (70-110)
[2019-04-23 02:53] VITALS: BP 109/57; PULSE 76; RESP 16; TEMP 36.6; O2SAT 97
[2019-04-23] MEDS: Insulin Lispro 100 UNIT/ML INSULN.PEN SC ×5 (02:58→22:10)
[2019-04-23 03:00] VITALS: RESP 16; O2SAT 97
[2019-04-23] MEDS: oxyCODONE 5 MG Tablet PO ×2 (03:06→14:34)
[2019-04-23 03:21] LABS: Bedside Glucose 261 mg/dL (70-110)
[2019-04-23 05:01] LABS: Absolute Neutrophil Count 4.7 X10^3/uL (2.0-7.7); Eosinophil# 0.11 X10^3/uL; Hematocrit 29.7 % (37-47); Hemoglobin 9.3 g/dL (12.0-15.0); Lymphocyte % 5.5 % (19-41); Mean Corp Hgb Conc 31.3 g/dL (32-36); Mean Corpuscular Hgb 27.4 pg (27.0-32.0); Mean Corpuscular Volume 87.6 fL (81-99); Mean Platelet Vol. 10.1 fl (6.2-12.0); Monocyte# 0.34 X10^3/uL; Monocyte% 6.2 % (0-10); NRBC Flagged by Analyzer 0 % (0-5); Neutrophil # 4.69 X10^3/uL (2.7-7.7); Neutrophil % 85.9 % (47-70); POSITIVE DIFFERENTIAL YES; POSITIVE MORPHOLOGY YES; Platelet Count 134 K/mm3 (150-450); RBC Distribution Width CV 15.1 % (11.6-14.6); RBC Distribution Width SD 48.3 fl (35.1-43.9); Red Blood Count 3.39 M/mm3 (4.2-5.4); White Blood Count 5.5 K/mm3 (4.4-11.0)
[2019-04-23 05:07] LABS: Differential Indicated SCAN CRITERIA MET
[2019-04-23 05:14] LABS: Anion Gap 7 (5-15); BUN 30 mg/dL (7-18); BUN/Creat Ratio 18.3 RATIO (10-20); Calcium,Total 8.1 mg/dL (8.5-10.1); Chloride 101 mmol/L (98-107); Creatinine, Serum 1.64 mg/dL (0.55-1.02); EST Glomerular Filtration Rate 33 mL/min (>60); Est Glom Filt Rate - Afr Amer 39 mL/min (>60); Estimated Creatinine Clearance 23.05 ml/min; Glucose 254 mg/dL (74-106); Potassium 3.8 mmol/L (3.5-5.1); Sodium Level 136 mmol/L (136-145)
[2019-04-23 05:25] LABS: Platelet Estimate SLT DEC (ADEQ)
[2019-04-23 05:26] LABS: Anisocytosis RARE; Hypochromasia 1+
[2019-04-23 06:50] LABS: Bedside Glucose 246 mg/dL (70-110)
[2019-04-23 08:54] VITALS: BP 114/59; PULSE 83; RESP 20; TEMP 36.8; O2SAT 95
[2019-04-23] MEDS: APIXABAN 2.5 MG TABLET PO ×2 (09:06→22:12)
[2019-04-23] MEDS: Glucerna Shake 120 ML LIQUID PO ×4 (09:06→22:07)
[2019-04-23] MEDS: BRIMONIDINE 0.2% 5ML BOTTLE 1 DRP EACH EYE ×2 (09:10→22:11)
[2019-04-23] MEDS: oxyCODONE CR 15 MG Tablet PO ×2 (09:13→22:15)
[2019-04-23] MEDS: Cefazolin 1 GM/50 ML BAG IV ×2 (09:14→22:15)
[2019-04-23 12:30] LABS: Bedside Glucose 224 mg/dL (70-110)
[2019-04-23 14:32] VITALS: BP 125/62; PULSE 92; RESP 18; TEMP 36.8; O2SAT 100
[2019-04-23] MEDS: 0.9% Saline Lock 10 ML Syringe IV ×3 (14:34→22:16)
--- NOTE | 2019-04-23 17:00 | PCM.PROGNOTE ---
Patient Problems: Active and Suspected Problems Cellulitis (Acute) Allergic drug reaction (Acute) Redness of the lower extremities (Acute) Subjective: Patient was seen and examined today, her lower leg edema is gone down markedly on the Lasix drip. I have decided to change her to IV Lasix without the continuous drip. Patient is afebrile. Patient's white blood cell count was 5.5 today, creatinine was 1.64. - Physical Exam Vitals/I&O's: Vital Signs Temp Pulse Resp BP Pulse Ox 98.3 F 92 18 125/62 H 100 04/23/19 14:32 04/23/19 14:32 04/23/19 14:32 04/23/19 14:32 04/23/19 14:32 Oxygen Delivery Method Room Air Weight: 100.726 kg Body Mass Index (BMI) 41.9 Finger Stick Blood Glucose 210 Intake and Output for Last 24 Hours 04/21/19 04/22/19 04/23/19 23:59 23:59 23:59 Intake Total 50.25 / 450.25 970.75 / 970.75 Output Total 300 / 950 2049 Balance -249.75 / -499.75 -1079.25 / -1079.25 General: Alert, Oriented x3, Cooperative, No apparent distress, Well developed HEENT: Atraumatic, PERRLA, EOMI, Normocephalic Neck: Supple, No JVD, Negative Carotid Bruits, Trachea Midline, Thyroid Normal Size and Texture Lungs: Clear to auscultation, Normal air movement, No rhonchi, No wheeze, No rales Cardiovascular: Regular rate, Regular Rhythm, Normal S1, Normal S2, No murmurs, PMI Normal, No rub noted, No Gallop Abdomen: Bowel Sounds Present, Soft, Non Tender, Non-Distended, No hernias noted Extremities: No clubbing, No cyanosis, Capillary Refill Less than 3 Seconds, Edema - Generalized lower leg edema is noted bilaterally, there is redness of both lower legs noted more so on the right Skin: No rashes, No breakdown Musculoskeletal: No Tenderness to Palpation of Joints or Extremities Neurological: Cranial nerves II-XII grossly intact, Neuro grossly intact, Sensory exam intact to light touch and pain Psych/Mental Status: Normal Affect, Appropriate, Alert and oriented to time, place, person, mood and affect Laboratory Results 04/22/19 17:20: POC Glucose 293 H 04/22/19 21:36: POC Glucose 328 H 04/23/19 02:57: POC Glucose 261 H 04/23/19 04:30: WBC 5.5, RBC 3.39 L, Hgb 9.3 L, Hct 29.7 L, MCV 87.6, MCH 27.4, MCHC 31.3 L, RDW Std Deviation 48.3 H, RDW Coeff of Zuri 15.1 H, Plt Count 134 L, MPV 10.1, Immature Gran % (Auto) 0.400, Neut % (Auto) 85.9 H, Lymph % (Auto) 5.5 L, [place] % (Auto) 6.2, Eos % (Auto) 2.0, Baso % (Auto) 0.0, Absolute Neuts (auto) 4.7, Absolute Lymphs (auto) 0.30 L, Nucleated RBC % 0, Platelet Estimate SLT DEC, Hypochromasia 1+, Anisocytosis RARE 04/23/19 04:30: Sodium 136, Potassium 3.8, Chloride 101, Carbon Dioxide 28.0, Anion Gap 7, BUN 30 H, Creatinine 1.64 H, Estim Creat Clear Calc 23.05, Est GFR (MDRD) Af Amer 39 L, Est GFR (MDRD) Non-Af 33 L, BUN/Creatinine Ratio 18.3, Glucose 254 H, Calcium 8.1 L 04/23/19 06:29: POC Glucose 246 H 04/23/19 12:15: POC Glucose 224 H Current Medications Acetaminophen (Tylenol) 650 mg PO Q6H PRN PRN PRN Reason: Pain Score 1-3/Temp > 100.7 F Last Admin: 04/22/19 17:55 Dose: 650 mg Documented by: Apixaban (Eliquis) 2.5 mg PO BID [facility] Last Admin: 04/23/19 09:06 Dose: 2.5 mg Documented by: Brimonidine Tartrate (Brimonidine 0.2% 5ml Bottle) 1 drop EACH EYE BID [facility] Last Admin: 04/23/19 09:10 Dose: 1 drop Documented by: Cholecalciferol (Vitamin D) 2,000 unit PO DAILY [facility] Last Admin: 04/23/19 09:07 Dose: 2,000 unit Documented by: Cyclobenzaprine HCl (Flexeril) 10 mg PO QHS [facility] Last Admin: 04/22/19 21:30 Dose: 10 mg Documented by: Diphenhydramine HCl (Benadryl) 25 mg PO TID PRN PRN PRN Reason: ALLERGIES Furosemide (Lasix) 40 mg IV BID@1000,1800 [place] Glucagon () 1 mg IM .X1 PRN PRN Reason: Hypoglycemia Cefazolin Sodium () 1 gm in 50 mls @ 100 mls/hr IV Q12 [facility] Last Infusion: 04/23/19 09:45 Dose: Infused Documented by: Sodium Chloride () 250 mls @ 15 mls/hr IV .[id number] PRN PRN Reason: Saline Flush Last Infusion: 04/23/19 15:22 Dose: 0 mls/hr Documented by: Dextrose (Dextrose 10%-Water) 250 mls @ 999 mls/hr IV .Q16M PRN; Protocol PRN Reason: HYPOGLYCEMIA Insulin Human Lispro (Humalog Kwikpen (Bkc)) 0 unit SC ACHS & 3AM [facility]; Protocol Last Admin: 04/23/19 12:17 Dose: 6 units Documented by: Lorazepam (Ativan) 0.5 mg PO Q6H PRN PRN PRN Reason: ANXIETY Nutritional Formula (Lactose Free) (Glucerna Shake) 120 ml PO 4X/DAY [facility] Last Admin: 04/23/19 15:04 Dose: 120 ml Documented by: Ondansetron HCl (Zofran) 4 mg IV Q8H PRN PRN PRN Reason: NAUSEA/VOMITING Oxycodone HCl (Oxyir) 5 - 10 mg PO Q4H PRN PRN PRN Reason: Pain Score 1-10/10 Last Admin: 04/23/19 14:34 Dose: 10 mg Documented by: Oxycodone HCl (Oxycontin) 15 mg PO BID [facility] Last Admin: 04/23/19 09:13 Dose: 15 mg Documented by: [facility] Last Admin: 04/23/19 09:05 Dose: 20 meq Documented by: Promethazine HCl (Phenergan Tablet) 25 mg PO 4X/DAY PRN PRN PRN Reason: NAUSEA/VOMITING Sodium Chloride () 10 - 40 ml IV UD PRN PRN Reason: SALINE FLUSH Last Admin: 04/23/19 14:34 Dose: 10 ml Documented by: Medical Necessity - Tobacco Use Smoking Status: Never smoker Tobacco Use: Non-smoker Assessment/Plan All Active Problems Cellulitis (Acute) Allergic drug reaction (Acute) Redness of the lower extremities (Acute) Acute exacerbation of extrinsic asthma (Resolved) Abdominal wall ulcer (Resolved) Acute renal insufficiency (Resolved) CSD (cat scratch disease) (Resolved) Cellulitis of left lower extremity (Resolved) Cellulitis of right lower extremity (Resolved) Colitis (Resolved) Dehydration (Resolved) Dental infection (Resolved) Left leg cellulitis (Resolved) Sepsis (Resolved) Sepsis (Resolved) Severe sepsis (Resolved) Surgical wound dehiscence (Resolved) Ulcer of right lower extremity with fat layer exposed (Resolved) #1 lymphedema of the lower legs with increased edema-this has improved, I have stopped her continuous infusion Lasix and will continue with IV Lasix, labs will be repeated tomorrow #2 cellulitis of the lower legs-continue IV Ancef #3 swelling of the upper lip-etiology unclear-there is no sign of any edema in the upper lip or any swelling today #4 melanoma #5 chronic kidney disease stage III #6 type 2 diabetes-blood sugars will be monitored Code Visit Inpatient E&M: 89937 Subs Hosp L2
[2019-04-23] MEDS: Furosemide 40 MG/4 ML Vial IV (17:18)
[2019-04-23 17:21] LABS: Bedside Glucose 205 mg/dL (70-110)
[2019-04-23 22:03] VITALS: BP 123/58; PULSE 90; RESP 18; TEMP 37.1; O2SAT 95
[2019-04-23] MEDS: cycloBENZAPRine HCl 10 MG Tablet PO (22:12)
[2019-04-23 22:15] VITALS: PULSE 90; RESP 18; O2SAT 95
[2019-04-23 22:31] LABS: Bedside Glucose 263 mg/dL (70-110)
[2019-04-24 02:45] VITALS: BP 100/53; PULSE 82; RESP 16; TEMP 36.6; O2SAT 97
[2019-04-24] MEDS: oxyCODONE 5 MG Tablet PO ×3 (02:54→20:36)
[2019-04-24 03:15] LABS: Bedside Glucose 130 mg/dL (70-110)
[2019-04-24 05:41] LABS: Anion Gap 4 (5-15); BUN 42 mg/dL (7-18); BUN/Creat Ratio 22.8 RATIO (10-20); Chloride 101 mmol/L (98-107); Creatinine, Serum 1.84 mg/dL (0.55-1.02); EST Glomerular Filtration Rate 29 mL/min (>60); Est Glom Filt Rate - Afr Amer 35 mL/min (>60); Estimated Creatinine Clearance 20.55 ml/min; Glucose 133 mg/dL (74-106); Potassium 4.2 mmol/L (3.5-5.1); Sodium Level 138 mmol/L (136-145)
[2019-04-24 07:01] LABS: Bedside Glucose 143 mg/dL (70-110)
[2019-04-24 08:45] VITALS: BP 110/48; PULSE 98; RESP 18; TEMP 36.9; O2SAT 94
--- NOTE | 2019-04-24 09:04 | PCM.PN.HOSP ---
Patient Problems: Active and Suspected Problems Cellulitis (Acute) Allergic drug reaction (Acute) Redness of the lower extremities (Acute) Subjective: Feeling much better, swelling is down significantly Vitals/I&O's: Vital Signs Temp Pulse Resp BP Pulse Ox 98 F 82 16 100/53 L 97 04/24/19 02:45 04/24/19 02:45 04/24/19 02:45 04/24/19 02:45 04/24/19 02:45 Oxygen Delivery Method Room Air Weight: 222 lb 1 oz Body Mass Index (BMI) 41.9 Finger Stick Blood Glucose 210 Intake and Output for Last 24 Hours 04/22/19 04/23/19 04/24/19 23:59 23:59 23:59 Intake Total 50.25 / 450.25 1864.50 / 1864.50 100 / 100 Output Total 300 / 950 4350 / 4350 425 / 425 Balance -249.75 / -499.75 -2485.50 / -2485.50 -325 / -325 General: Alert, Oriented x3, Cooperative, No apparent distress HEENT: Atraumatic, PERRLA, EOMI, Normocephalic Oral: Moist Mucosa Neck: Supple, No JVD Lungs: Clear to auscultation, Normal air movement, No rhonchi, No wheeze, No rales, Diminished Cardiovascular: Regular rate, Regular Rhythm, Normal S1, Normal S2, No murmurs Abdomen: Soft, Non Tender, Non-Distended, No Hepato-splenomegaly Extremities: No edema, Capillary Refill Less than 3 Seconds Skin: No rashes, No breakdown Neurological: Neuro grossly intact, Sensory exam intact to light touch and pain Psych/Mental Status: Normal Affect, Appropriate Laboratory Results 04/23/19 12:15: POC Glucose 224 H 04/23/19 17:13: POC Glucose 205 H 04/23/19 22:09: POC Glucose 263 H 04/24/19 02:48: POC Glucose 130 H 04/24/19 04:50: Sodium 138, Potassium 4.2, Chloride 101, Carbon Dioxide 33.0 H, Anion Gap 4 L, BUN 42 H, Creatinine 1.84 H, Estim Creat Clear Calc 20.55, Est GFR (MDRD) Af Amer 35 L, Est GFR (MDRD) Non-Af 29 L, BUN/Creatinine Ratio 22.8 H, Glucose 133 H, Calcium 8.0 L 04/24/19 06:31: POC Glucose 143 H Current Medications Acetaminophen (Tylenol) 650 mg PO Q6H PRN PRN PRN Reason: Pain Score 1-3/Temp > 100.7 F Last Admin: 04/22/19 17:55 Dose: 650 mg Documented by: Apixaban (Eliquis) 2.5 mg PO BID [facility] Last Admin: 04/23/19 22:12 Dose: 2.5 mg Documented by: Brimonidine Tartrate (Brimonidine 0.2% 5ml Bottle) 1 drop EACH EYE BID [facility] Last Admin: 04/23/19 22:11 Dose: 1 drop Documented by: Cholecalciferol (Vitamin D) 2,000 unit PO DAILY [facility] Last Admin: 04/23/19 09:07 Dose: 2,000 unit Documented by: Cyclobenzaprine HCl (Flexeril) 10 mg PO QHS [facility] Last Admin: 04/23/19 22:12 Dose: 10 mg Documented by: Diphenhydramine HCl (Benadryl) 25 mg PO TID PRN PRN PRN Reason: ALLERGIES Furosemide (Lasix) 20 mg PO BID [facility] Glucagon () 1 mg IM .X1 PRN PRN Reason: Hypoglycemia Cefazolin Sodium () 1 gm in 50 mls @ 100 mls/hr IV Q12 [facility] Last Infusion: 04/23/19 22:45 Dose: Infused Documented by: Sodium Chloride () 250 mls @ 15 mls/hr IV .[id number] PRN PRN Reason: Saline Flush Last Infusion: 04/23/19 23:00 Dose: 0 mls/hr Documented by: Dextrose (Dextrose 10%-Water) 250 mls @ 999 mls/hr IV .Q16M PRN; Protocol PRN Reason: HYPOGLYCEMIA Insulin Human Lispro (Humalog Kwikpen (Bkc)) 0 unit SC ACHS & 3AM [facility]; Protocol Last Admin: 04/24/19 06:32 Dose: Not Given Documented by: Lorazepam (Ativan) 0.5 mg PO Q6H PRN PRN PRN Reason: ANXIETY Nutritional Formula (Lactose Free) (Glucerna Shake) 120 ml PO 4X/DAY [facility] Last Admin: 04/23/19 22:07 Dose: 120 ml Documented by: Ondansetron HCl (Zofran) 4 mg IV Q8H PRN PRN PRN Reason: NAUSEA/VOMITING Oxycodone HCl (Oxyir) 5 - 10 mg PO Q4H PRN PRN PRN Reason: Pain Score 1-10/10 Last Admin: 04/24/19 06:30 Dose: 5 mg Documented by: Oxycodone HCl (Oxycontin) 15 mg PO BID [facility] Last Admin: 04/23/19 22:15 Dose: 15 mg Documented by: [facility] Last Admin: 04/23/19 17:16 Dose: 20 meq Documented by: Promethazine HCl (Phenergan Tablet) 25 mg PO 4X/DAY PRN PRN PRN Reason: NAUSEA/VOMITING Sodium Chloride () 10 - 40 ml IV UD PRN PRN Reason: SALINE FLUSH Last Admin: 04/23/19 22:16 Dose: 20 ml Documented by: Medical Necessity - Tobacco Use Smoking Status: Never smoker Tobacco Use: Non-smoker Assessment/Plan All Active Problems Cellulitis (Acute) Allergic drug reaction (Acute) Redness of the lower extremities (Acute) Acute exacerbation of extrinsic asthma (Resolved) Abdominal wall ulcer (Resolved) Acute renal insufficiency (Resolved) CSD (cat scratch disease) (Resolved) Cellulitis of left lower extremity (Resolved) Cellulitis of right lower extremity (Resolved) Colitis (Resolved) Dehydration (Resolved) Dental infection (Resolved) Left leg cellulitis (Resolved) Sepsis (Resolved) Sepsis (Resolved) Severe sepsis (Resolved) Surgical wound dehiscence (Resolved) Ulcer of right lower extremity with fat layer exposed (Resolved) 1. Lymphedema with bilateral lower extremity chronic venous stasis changes -Unlikely to have cellulitis since it does not happen in both legs, and she has been on Keflex for 20 days without improvement though with diuresis and wrapping her redness has essentially resolved -This is likely related to significant edema as her Lasix was cut down by her oncologist for worsening renal function -Creatinine is up to 1.84 today, however swelling has improved significantly -Lower extremities are wrapped -No white count and no fever -We will discontinue her IV antibiotic -We will reevaluate creatinine in the morning and if it trends downward can discharge on her home Lasix without any further antibiotics -Would recommend continue wrapping and GEORGE hose at home for swelling 2. DM 2/CKD 3 with GREGORY -We will hold her home oral medications -Continue with insulin and Accu-Cheks AC at bedtime -We will continue to monitor renal function, creatinine jumped to 1.84 today with her IV Lasix, and will switch her to oral Lasix 3. Melanoma -Continue with Eliquis, she is on Opdivo at home q. week -We will continue with her pain medication DVT: Graciela Code Visit Inpatient E&M: 28729 Subs Hosp L2
[2019-04-24] MEDS: BRIMONIDINE 0.2% 5ML BOTTLE 1 DRP EACH EYE ×2 (09:39→23:23)
[2019-04-24] MEDS: Glucerna Shake 120 ML LIQUID PO ×4 (09:40→23:23)
[2019-04-24] MEDS: APIXABAN 2.5 MG TABLET PO ×2 (09:40→23:23)
[2019-04-24] MEDS: Furosemide 20 MG Tablet PO ×2 (09:40→17:58)
[2019-04-24] MEDS: DIFLUPREDNATE 5 ML DROPS 1 DRP OP ×2 (10:00→10:01)
[2019-04-24] MEDS: oxyCODONE CR 15 MG Tablet PO ×2 (10:07→23:22)
--- NOTE | 2019-04-24 10:39 | CASEMGMT ---
RN CM Assessment Presentation: Cellulitis legs, redness, edema Intro role of CM and purpose of RN CM assessment to patient in room. Pt is awake, alert and able to participate in assessment. Demographics, PCP and Pharmacy verified. Pt states she lives independently at home. States she has equipment at home, and presently does not need assistance with ADL's. PCP: Dr. Chinchilla Specialists: Dr. Estevez Preferred Pharmacy: [facility] Insurance: [employer] [facility] Adv Prescription Benefit: yes LNOK: Daughter and son Living Arrangements: Lives independently in two story home, first floor set up. Pt states has difficulty with stairs, and does not go to second floor often. No care needs identified at this time. Transportation: drives during the day, but pt states has difficulty when it is lor out. Children are willing to do much of the driving. DME: walker, shower chair, cane, nebulizer HHC/SNF: [facility] past Referral: no Patient DC goals: Home DC PLAN: Home. No discharge needs identified at this time. RN CM let pt know to contac CM is dc concerns arise. Ella MIXONN RN ACM
[2019-04-24] MEDS: Insulin Lispro 100 UNIT/ML INSULN.PEN SC ×3 (12:05→23:23)
[2019-04-24 15:00] VITALS: BP 127/68; PULSE 81; RESP 18; TEMP 36.8; O2SAT 97
--- NOTE | 2019-04-24 16:16 | CHAPLAIN ---
Type of Pastoral Visit _x__ Initial Visit ___ Follow-up Visit ___ On-call Visit ___ General Patient Visit ___ Spiritual Assessment ___ Family Conference ___ Bereavement ___ Rapid Response ___ Code Blue ___ Other (describe below) Pastoral Care Referral From _x__ Patient ___ Family ___ Nurse ___ Physician ___ Leisure Studies Professor ___ Steamer Operator ___ Other (describe below) Sacrament/Intervention _x__ Active listening ___ Anointing ___ Druze ___ Bereavement ___ Communion _x__ Radha exploration ___ _x__ Life review _x__ Prayer ___ Reconciliation ___ Sacrament of Sick _x__ Supportive presence ___ Wedding ___ Other (describe below) Pastoral Comments patient is very talkative and welcomes prayer; pt discusses some family issues and seeks prayer for this as well
[2019-04-24 16:26] LABS: Bedside Glucose 229 mg/dL (70-110)
[2019-04-24 20:41] VITALS: BP 141/63; PULSE 97; RESP 18; TEMP 37; O2SAT 96
[2019-04-24 21:46] LABS: Bedside Glucose 171 mg/dL (70-110)
[2019-04-24] MEDS: cycloBENZAPRine HCl 10 MG Tablet PO (23:23)
[2019-04-24] MEDS: 0.9% Saline Lock 10 ML Syringe IV (23:34)
[2019-04-24 23:40] LABS: Bedside Glucose 204 mg/dL (70-110)
[2019-04-25] MEDS: Insulin Lispro 100 UNIT/ML INSULN.PEN SC ×2 (02:15→11:52)
[2019-04-25 02:23] VITALS: BP 123/66; PULSE 66; RESP 18; TEMP 36.4; O2SAT 94
[2019-04-25 03:26] LABS: Bedside Glucose 228 mg/dL (70-110)
[2019-04-25 05:39] LABS: Anion Gap 4 (5-15); BUN 39 mg/dL (7-18); BUN/Creat Ratio 25.2 RATIO (10-20); Calcium,Total 8.2 mg/dL (8.5-10.1); Chloride 102 mmol/L (98-107); Creatinine, Serum 1.55 mg/dL (0.55-1.02); EST Glomerular Filtration Rate 35 mL/min (>60); Est Glom Filt Rate - Afr Amer 42 mL/min (>60); Estimated Creatinine Clearance 24.39 ml/min; Glucose 150 mg/dL (74-106); Sodium Level 138 mmol/L (136-145)
[2019-04-25 06:50] LABS: Bedside Glucose 127 mg/dL (70-110)
[2019-04-25 08:15] VITALS: BP 164/68; PULSE 70; RESP 18; TEMP 36.9; O2SAT 98
--- NOTE | 2019-04-25 09:32 | DCINST_ITS ---
- Discharge Diagnoses Current Active Problems: Current Active and Chronic Problems Cellulitis (Acute) Allergic drug reaction (Acute) Redness of the lower extremities (Acute) You will use the following diet at home:: Calorie/Carbohydrate Controlled (specify 1200, 1400, etc) Your food should be the consistency of: Regular Your liquids should be the consistency of: Regular/Thin Discharge Activity: Return to Normal Activity Call your doctor if you observe: Fever of 101 or Higher, Shortness of breath, Dizziness, Fainting spells, Swelling in the ankles, Chest pain, Increased palpitations (irregular heartbeat) Additional Instructions: Obtain a BMP by your PCP to evaluate your kidney function Allergies/Adverse Reactions: Allergies clindamycin Allergy (Verified 04/22/19 10:46) Other iodine Allergy (Verified 04/22/19 10:46) rash/incoherent meperidine HCl [From Demerol] Allergy (Verified 04/22/19 10:46) Nausea/vomiting/diarrhea Penicillins Allergy (Verified 04/22/19 10:46) Itching/hives adhesive tape Adverse Reaction (Verified 04/22/19 10:46) blisters BLISTERS aspirin Adverse Reaction (Verified 04/22/19 10:46) nosebleeds diazepam [From Valium] Adverse Reaction (Verified 04/22/19 10:46) Nausea/Vom/Diarrhea egg Adverse Reaction (Verified 04/22/19 10:46) Diarrhea methadone Adverse Reaction (Verified 04/22/19 10:46) Upset Stomach morphine Adverse Reaction (Verified 04/22/19 10:46) Nausea/Vom/Diarrhea sulfamethoxazole [From Bactrim] Adverse Reaction (Verified 04/22/19 10:46) Nausea/Vom/Diarrhea trimethoprim [From Bactrim] Adverse Reaction (Verified 04/22/19 10:46) Nausea/Vom/Diarrhea Medications to take at Discharge Cyanocobalamin [Vitamin B12] 1,000 mcg PO DAILY@0800 05/29/15 cycloBENZAPRine HCl [Flexeril] 10 mg PO QHS 05/29/15 metFORMIN HCl [Glucophage] 250 mg PO BIDCM 05/29/15 Apixaban [Eliquis] 2.5 mg PO BID 06/12/15 Furosemide [Lasix] 20 mg PO BID 07/16/15 proMETHazine tablet [Phenergan tablet] 25 mg PO 4X/DAY PRN PRN #20 tablet 04/02/16 Albuterol IH (ProAir) [Proair Hfa] 2 puff INHALATION Q6H PRN PRN 05/27/16 Ondansetron HCl [Zofran] 8 mg PO TID PRN PRN 05/27/16 Oxycodone HCl [Oxycodone HCl ER] 15 mg PO BID 12/25/16 Cholecalciferol (VIT D3) [Vitamin D3] 2,000 unit PO DAILY 04/01/18 Ascorbic Acid [C-1000 with Kelley Hips] 500 mg PO DAILY 01/12/19 DiphenhydrAMINE [Benadryl] 25 mg PO BID 01/12/19 Lorazepam [Ativan] 0.25 - 0.5 mg PO Q6H PRN PRN 01/12/19 Brimonidine Tartrate 0.2% [Brimonidine 0.2% 5Ml Bottle] 1 drp EACH EYE BID 04/22/19 Cetirizine HCl 10 mg PO DAILY 04/22/19 Difluprednate [Durezol] 1 drp EACH EYE QODAY 04/22/19 Nivolumab [Opdivo] 240 mg IV QWEEK 04/22/19 Oxycodone [Oxyir] 5 - 10 mg PO Q4H PRN PRN 04/22/19 Primary Care Physician: Isidro Chinchilla MD [Primary Care Provider] - Please follow up with your Primary Care Physician in: 3-5 days Test Results: Test results from this visit will be discussed in further detail at your follow- up appointment, if applicable.
[2019-04-25] MEDS: Glucerna Shake 120 ML LIQUID PO (10:03)
[2019-04-25] MEDS: oxyCODONE CR 15 MG Tablet PO (10:03)
[2019-04-25] MEDS: Furosemide 20 MG Tablet PO (10:03)
[2019-04-25] MEDS: APIXABAN 2.5 MG TABLET PO (10:04)
[2019-04-25] MEDS: BRIMONIDINE 0.2% 5ML BOTTLE 1 DRP EACH EYE (10:05)
--- NOTE | 2019-04-25 10:43 | DS.PCM_ITS ---
Discharge Date and Diagnosis - Problem List Patient Problems: Active and Suspected Problems Cellulitis (Acute) Allergic drug reaction (Acute) Redness of the lower extremities (Acute) Date of Admission: 04/22/19 Date of Discharge: 04/25/19 - Primary Discharge Diagnosis Active and Suspected Problems Cellulitis (Acute) Allergic drug reaction (Acute) Redness of the lower extremities (Acute) - Secondary Discharge Diagnosis Chronic Problems Multiple thyroid nodules (Chronic) Thyromegaly (Chronic) Bilateral lower extremity edema (Chronic) Lymphedema of both lower extremities (Chronic) Melanoma (Chronic) Asthma (Chronic) Reported, severity unknown History of DVT (deep vein thrombosis) (Chronic) History of pulmonary embolism (Chronic) Type II diabetes mellitus (Chronic) Cancer of ovary (Chronic) Anemia (Chronic) Venous insufficiency (Chronic) Poor dentition (Chronic) Hospital Course and Treatment Imaging Results: None Consults: None Operations: None Procedures: None Summary of Care Provided: Per HPI: The patient is a 73 year old F was seen in the emergency room at [facility] with a chief complaint of increasing edema to her lower legs over the last 2 to 3 weeks, in addition she is complained of increased redness and warmth to her lower legs throughout the same time period. Patient has been placed Keflex the last 2-1/2 weeks, recently Bactrim was added to her antibiotic coverage. She complains of swelling of her upper lip since she has been on the Bactrim, she denies any breathing problems. Patient denies any chills or fevers. Lab work was obtained which showed a normal white blood cell count, creatinine was elevated at 1.64, BUN was 23. Glucose was 235. Examination revealed both lower legs to be reddened and swollen, they were warm to the touch. Patient will be admitted to [place] [id number] for lymphedema and cellulitis of the lower legs, I will place her on an IV Lasix drip and administer Ancef IV. Labs will be monitored Hospital Course: 1. Lymphedema with bilateral lower extremity chronic venous stasis changes- 73-year-old female presented with increasing edema as well as redness. She had been on antibiotics for almost a month from her oncologist for what was presumed to be bilateral lower extremity cellulitis. However she has been afebrile without a leukocytosis and her redness improved with increased diuresis and leg wrapping. She was started on an insulin drip when she presented and her kidney function stayed the same, she was transitioned from the insulin drip to her oral Lasix. On discharge her creatinine was 1.55 down from 1.64 on admission. Also initially she was admitted on Ancef however that was discontinued the day prior to discharge since bilateral cellulitis is extremely unlikely and it was more likely to be via chronic venous stasis changes. Do recommend that she continue to wrap her legs and I also had an extensive discussion with her that she needs to be monitoring her weight daily and if she does have an increase in her weight by a couple of pounds over a couple of days that she can take an extra Lasix and call her primary care doctor for follow-up. I do recommend in the meantime that she sees her primary care doctor in 3 to 5 days for repeat BMP to monitor her renal function. 2. DM 2/CKD 3 with GREGORY/melanoma/history of blood clots-her GREGORY resolved prior to discharge. Also will restart her home oral diabetic medications. She is to continue with her Opdivo per oncology for her metastatic melanoma. Also recommend she continue her Eliquis for her history of blood clots especially since she also has a history of ovarian cancer no metastatic melanoma. She discussed that she has palliative care at home and therefore I do recommend closer monitoring at home from palliative care for the next couple of weeks. 3. Her other medical diagnoses were evaluated and her home medications were continued where appropriate Patient Problems: Active and Suspected Problems Cellulitis (Acute) Allergic drug reaction (Acute) Redness of the lower extremities (Acute) - Physical Exam Vitals/I&O's: Vital Signs Temp Pulse Resp BP Pulse Ox 97.6 F L 66 18 123/66 H 94 04/25/19 02:23 04/25/19 02:23 04/25/19 02:23 04/25/19 02:23 04/25/19 02:23 Oxygen Delivery Method Room Air Weight: 222 lb 1 oz Body Mass Index (BMI) 41.9 Finger Stick Blood Glucose 210 Intake and Output for Last 24 Hours 04/23/19 04/24/19 04/25/19 23:59 23:59 23:59 Intake Total 1864.50 / 1864.50 1060 / 1360 300 / 300 Output Total 4350 / 4350 425 / 725 800 / 800 Balance -2485.50 / -2485.50 635 / 635 -500 / -500 General: Alert, Oriented x3, Cooperative, No apparent distress HEENT: Atraumatic, PERRLA, EOMI, Normocephalic Oral: Moist Mucosa Neck: Supple, No JVD Lungs: Clear to auscultation, Normal air movement, No rhonchi, No wheeze, No rales, Diminished Cardiovascular: Regular rate, Regular Rhythm, Normal S1, Normal S2, No murmurs Abdomen: Soft, Non Tender, Non-Distended, No Hepato-splenomegaly Extremities: Edema 1+ nonpitting, Capillary Refill Less than 3 Seconds Skin: No rashes, No breakdown, legs are unwrapped this morning and there are chronic venous stasis changes on both legs no signs of cellulitis, no erythema Neurological: Neuro grossly intact, Sensory exam intact to light touch and pain Psych/Mental Status: Normal Affect, Appropriate Microbiology Past 72 Hours 04/22/19 12:02 Blood Culture (Wb) - Anticubital Left Blood Culture - Preliminary No growth in 48 hours. 04/22/19 11:23 Blood Culture (Wb) - Anticubital Right Blood Culture - Preliminary No growth in 48 hours. Laboratory Results 04/24/19 12:00: POC Glucose 171 H 04/24/19 16:23: POC Glucose 229 H 04/24/19 23:27: POC Glucose 204 H 04/25/19 02:14: POC Glucose 228 H 04/25/19 04:48: Sodium 138, Potassium 4.0, Chloride 102, Carbon Dioxide 32.0, Anion Gap 4 L, BUN 39 H, Creatinine 1.55 H, Estim Creat Clear Calc 24.39, Est GFR (MDRD) Af Amer 42 L, Est GFR (MDRD) Non-Af 35 L, BUN/Creatinine Ratio 25.2 H , Glucose 150 H, Calcium 8.2 L 04/25/19 06:27: POC Glucose 127 H Current Medications Acetaminophen (Tylenol) 650 mg PO Q6H PRN PRN PRN Reason: Pain Score 1-3/Temp > 100.7 F Last Admin: 04/22/19 17:55 Dose: 650 mg Documented by: Apixaban (Eliquis) 2.5 mg PO BID [facility] Last Admin: 04/25/19 10:04 Dose: 2.5 mg Documented by: Brimonidine Tartrate (Brimonidine 0.2% 5ml Bottle) 1 drop EACH EYE BID [facility] Last Admin: 04/25/19 10:05 Dose: 1 drop Documented by: Cholecalciferol (Vitamin D) 2,000 unit PO DAILY [facility] Last Admin: 04/25/19 10:05 Dose: 2,000 unit Documented by: Cyclobenzaprine HCl (Flexeril) 10 mg PO QHS [facility] Last Admin: 04/24/19 23:23 Dose: 10 mg Documented by: Diphenhydramine HCl (Benadryl) 25 mg PO TID PRN PRN PRN Reason: ALLERGIES Furosemide (Lasix) 20 mg PO BIDLX [facility] Last Admin: 04/25/19 10:03 Dose: 20 mg Documented by: Glucagon () 1 mg IM .X1 PRN PRN Reason: Hypoglycemia Sodium Chloride () 250 mls @ 15 mls/hr IV .[id number] PRN PRN Reason: Saline Flush Last Infusion: 04/23/19 23:00 Dose: 0 mls/hr Documented by: Dextrose (Dextrose 10%-Water) 250 mls @ 999 mls/hr IV .Q16M PRN; Protocol PRN Reason: HYPOGLYCEMIA Insulin Human Lispro (Humalog Kwikpen (Bkc)) 0 unit SC ACHS & 3AM [facility]; Protocol Last Admin: 04/25/19 06:30 Dose: Not Given Documented by: Lorazepam (Ativan) 0.5 mg PO Q6H PRN PRN PRN Reason: ANXIETY Nutritional Formula (Lactose Free) (Glucerna Justen) 120 ml PO 4X/DAY [facility] Last Admin: 04/25/19 10:03 Dose: 120 ml Documented by: Ondansetron HCl (Zofran) 4 mg IV Q8H PRN PRN PRN Reason: NAUSEA/VOMITING Oxycodone HCl (Oxyir) 5 - 10 mg PO Q4H PRN PRN PRN Reason: Pain Score 1-10/10 Last Admin: 04/24/19 20:36 Dose: 5 mg Documented by: Oxycodone HCl (Oxycontin) 15 mg PO BID [facility] Last Admin: 04/25/19 10:03 Dose: 15 mg Documented by: Potassium Ch[facility]) [facility] Last Admin: 04/25/19 08:05 Dose: 20 meq Documented by: Promethazine HCl (Phenergan Tablet) 25 mg PO 4X/DAY PRN PRN PRN Reason: NAUSEA/VOMITING Sodium Chloride () 10 - 40 ml IV UD PRN PRN Reason: SALINE FLUSH Last Admin: 04/24/19 23:34 Dose: 10 ml Documented by: Discharge Activity: Return to Normal Activity Call your doctor if you observe: Fever of 101 or Higher, Shortness of breath, Dizziness, Fainting spells, Swelling in the ankles, Chest pain, Increased palpitations (irregular heartbeat) Home Medications: Medications to take at Discharge Cyanocobalamin [Vitamin B12] 1,000 mcg PO DAILY@0800 05/29/15 cycloBENZAPRine HCl [Flexeril] 10 mg PO QHS 05/29/15 metFORMIN HCl [Glucophage] 250 mg PO BIDCM 05/29/15 Apixaban [Eliquis] 2.5 mg PO BID 06/12/15 Furosemide [Lasix] 20 mg PO BID 07/16/15 proMETHazine tablet [Phenergan tablet] 25 mg PO 4X/DAY PRN PRN #20 tablet 07/20/15 Albuterol IH (ProAir) [Proair Hfa] 2 puff INHALATION Q6H PRN PRN 05/27/16 Ondansetron HCl [Zofran] 8 mg PO TID PRN PRN 05/27/16 Oxycodone HCl [Oxycodone HCl ER] 15 mg PO BID 12/25/16 Cholecalciferol (VIT D3) [Vitamin D3] 2,000 unit PO DAILY 04/01/18 Ascorbic Acid [C-1000 with Kelley Hips] 500 mg PO DAILY 01/12/19 DiphenhydrAMINE [Benadryl] 25 mg PO BID 01/12/19 Lorazepam [Ativan] 0.25 - 0.5 mg PO Q6H PRN PRN 01/12/19 Brimonidine Tartrate 0.2% [Brimonidine 0.2% 5Ml Bottle] 1 drp EACH EYE BID 04/22/19 Cetirizine HCl 10 mg PO DAILY 04/22/19 Difluprednate [Durezol] 1 drp EACH EYE QODAY 04/22/19 Nivolumab [Opdivo] 240 mg IV QWEEK 04/22/19 Oxycodone [Oxyir] 5 - 10 mg PO Q4H PRN PRN 04/22/19 Primary Care Physician: Isidro Chinchilla MD [Primary Care Provider] - Please follow up with your Primary Care Physician in: 3-5 days Disposition: Home Minutes spent on discharge:: 35 Patient Condition:: Stable Medical Necessity - Tobacco Use Smoking Status: Never smoker Tobacco Use: Non-smoker Meaningful Use Info Meaningful Use Diagnoses (Choose all that apply): None applicable Code Visit Inpatient E&M: 57303 Disch Hosp
[2019-04-25 11:46] LABS: Bedside Glucose 197 mg/dL (70-110)
[2019-04-25 12:30] VITALS: BP 138/74; PULSE 70; RESP 18; TEMP 36.9; O2SAT 98
--- NOTE | 2019-04-27 15:34 | CASEMGMT ---
[facility] Discharge Follow-Up Phone Call. Lace: 11 Strata: 3 Discharge Date: 04/25/2019 Adm Dx: lymphedema, leg cellulitis Attempted discharge follow-up phone call. No answer. Message left advising pt to call [facility] RAMON, [place], if she has any questions/needs. Phone number provided. Marcel RAMIREZ RN CM
== END 2019-04-25 13:05 | disposition home or self-care (01) | DRG 607 ==
LOC: ED 13:00 → MS3 13:55
PROVIDERS: Admitting Provider Internal Medicine; Emergency Provider Emergency Medicine; Family Provider Family Medicine; PCP Family Medicine; Visit Provider Family Medicine
DX: I89.0 Lymphedema, not elsewhere classified (principal); C56.9 Malignant neoplasm of unspecified ovary; N17.9 Acute kidney failure, unspecified; Z68.41 Body mass index [BMI] 40.0-44.9, adult; I87.8 Other specified disorders of veins; N18.3 Chronic kidney disease, stage 3 (moderate); E11.22 Type 2 diabetes mellitus with diabetic chronic kidney disease; J45.909 Unspecified asthma, uncomplicated; I87.2 Venous insufficiency (chronic) (peripheral); R22.0 Localized swelling, mass and lump, head; E66.9 Obesity, unspecified; Z93.3 Colostomy status; Z79.84 Long term (current) use of oral hypoglycemic drugs; Z79.899 Other long term (current) drug therapy; Z86.718 Personal history of other venous thrombosis and embolism; Z79.01 Long term (current) use of anticoagulants
CPT/HCPCS: 36415; 80048; 82962; 83605; 85025; 87040; 97116; 97161; 97165; 97530; 97535; 97802; 99285; J7040; J7050; A4216; J1940

== ENCOUNTER 2019-10-13 12:11 | Outpatient (RCR) | payer MEDICARE, SELFPAY ==
[2019-04-22 15:29] VITALS: BMI 41.9
[2019-10-13 12:29] VITALS: BP 136/56; PULSE 100; RESP 18; TEMP 36.6; BMI 38.7
--- NOTE | 2019-10-13 16:28 | PCM.WC.HP ---
(1) Cat bite of left lower leg Status: Chronic Current Visit: Yes Qualifiers: Encounter type: initial encounter Qualified Code(s): S81.852A - Open bite, left lower leg, initial encounter; W55.01XA - Bitten by cat, initial encounter Code(s): S81.852A - Open bite, left lower leg, initial encounter; W55.01XA - Bitten by cat, initial encounter (2) Bilateral lower extremity edema Status: Chronic Current Visit: Yes Code(s): R60.0 - Localized edema (3) Lymphedema of both lower extremities Status: Chronic Current Visit: Yes Code(s): I89.0 - Lymphedema, not elsewhere classified (4) Type II diabetes mellitus Status: Chronic Current Visit: Yes Qualifiers: Diabetes mellitus manager commodities insulin use: unspecified senior care insulin use status Diabetes mellitus complication status: with skin complications Diabetes mellitus complication detail: with other skin complication Qualified Code(s): E11.628 - Type 2 diabetes mellitus with other skin complications Code(s): E11.9 - Type 2 diabetes mellitus without complications History of Present Illness Date of Service: 10/13/19 Chief Complaint: Left lower extremity cat bite/cellulitis, chronic lymphedema History of Wound: Ms. 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 She was seen by her PCP Dr. Dillon Daigle and prescribed Cipro and Flagyl and was applying adaptic and silvadene to the wounds. She saw Dr. Estevez, her oncologist on 10/06/2019 who prescribed her keflex and advised that she should be seen at the wound center for follow up treatment of the cat bite wounds to her left calf. She has significant swelling of her bilateral lower extremities and chronic lymphedema which recently has become much better controlled. She denies chills, fever or otherwise feeling unwell. 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 Resection of ovarian cancer at [facility] in 2016, debridement of the abdominal wall with wound closure by Dr. Garza in June 2015 Allergies/Adverse Reactions: Allergies clindamycin Allergy (Verified 04/22/19 10:46) Other iodine Allergy (Verified 04/22/19 10:46) rash/incoherent meperidine HCl [From Demerol] Allergy (Verified 04/22/19 10:46) Nausea/vomiting/diarrhea Penicillins Allergy (Verified 04/22/19 10:46) Itching/hives adhesive tape Adverse Reaction (Verified 04/22/19 10:46) blisters BLISTERS aspirin Adverse Reaction (Verified 04/22/19 10:46) nosebleeds diazepam [From Valium] Adverse Reaction (Verified 04/22/19 10:46) Nausea/Vom/Diarrhea egg Adverse Reaction (Verified 04/22/19 10:46) Diarrhea methadone Adverse Reaction (Verified 04/22/19 10:46) Upset Stomach morphine Adverse Reaction (Verified 04/22/19 10:46) Nausea/Vom/Diarrhea sulfamethoxazole [From Bactrim] Adverse Reaction (Verified 04/22/19 10:46) Nausea/Vom/Diarrhea trimethoprim [From Bactrim] Adverse Reaction (Verified 04/22/19 10:46) Nausea/Vom/Diarrhea Home Medications: Ambulatory Orders Medication Instructions Recorded Cyanocobalamin [Vitamin B12] 1,000 mcg PO DAILY@0800 05/29/15 cycloBENZAPRine HCl [Flexeril] 10 mg PO QHS 05/29/15 metFORMIN HCl [Glucophage] 250 mg PO BIDCM 05/29/15 Apixaban [Eliquis] 2.5 mg PO BID 06/12/15 Furosemide [Lasix] 20 mg PO BID 07/16/15 proMETHazine tablet [Phenergan 25 mg PO 4X/DAY PRN PRN #20 tablet 07/20/15 tablet] Albuterol IH (ProAir) [Proair Hfa] 2 puff INHALATION Q6H PRN PRN 02/08/17 Ondansetron HCl [Zofran] 8 mg PO TID PRN PRN 05/27/16 Oxycodone HCl [Oxycodone HCl ER] 15 mg PO BID 12/25/16 Cholecalciferol (VIT D3) [Vitamin 2,000 unit PO DAILY 04/01/18 D3] Ascorbic Acid [C-1000 with Kelley 500 mg PO DAILY 01/12/19 Hips] DiphenhydrAMINE [Benadryl] 25 mg PO BID 01/12/19 Lorazepam [Ativan] 0.25 - 0.5 mg PO Q6H PRN PRN 01/12/19 Brimonidine Tartrate 0.2% 1 drp EACH EYE BID 04/22/19 [Brimonidine 0.2% 5Ml Bottle] Cetirizine HCl 10 mg PO DAILY 04/22/19 Difluprednate [Durezol] 1 drp EACH EYE QODAY 04/22/19 Nivolumab [Opdivo] 240 mg IV QWEEK 04/22/19 Oxycodone [Oxyir] 5 - 10 mg PO Q4H PRN PRN 04/22/19 - Family History Maternal No pertinent history, - - no cancer Paternal No pertinent history Lives: Alone Smoking Status: Never smoker Tobacco Use: Non-smoker Alcohol: None Drugs: None Review of Systems Constitutional: Denies: Chills, Fever, Weight Change Eyes: Denies: Pain, Vision Change HEENT: Denies: Difficulty Hearing, Difficulty Swallowing, Sinus Congestion Cardiovascular: Denies: Chest Pain, Palpitations Respiratory: Denies: Cough, Shortness of Breath Gastrointestinal: Denies: Diarrhea, Nausea, Vomiting Genitourinary: Denies: Dysuria, Hematuria Musculoskeletal: Reports: Back Pain Skin: Reports: Wounds Endocrine: Denies: Heat/ Cold Intolerance, Polydipsia, Polyuria Hematologic/ Lymphatic: Denies: Easy Bruising, Easy Bleeding - Physical Exam Vital Signs Temp Pulse Resp BP 97.8 F 100 18 136/56 H 10/13/19 12:29 10/13/19 12:29 10/13/19 12:29 10/13/19 12:29 General: Alert, Oriented x3, Cooperative, No apparent distress HEENT: Atraumatic, Normocephalic Oral: Moist Mucosa Abdomen: Soft, Non Tender, Obese Extremities: Edema Skin: Ulcer/ Wound Wound Measurements and Assessment WC - Nurse 1 - General Ulcer Measurement Start: 10/13/19 12:28 Freq: Status: Active Protocol: Activity Type Activity Date Activity User E-Sign Co-Sign Detail Recorded Client Recorded Date Recorded By Document 10/13/19 12:29 MEME [id number] 10/13/19 12:54 MEME 10/13/19 12:29 Wound Center Nurse 1 [Ulcer Assessment] 4-left lateral almeida cluster -Combined with other wound No -Current Size (cm) - Length 3.3 -Current Size (cm) - Width 5.0 -Current Size (cm) - Depth 0.1 -Total Square Cm 16.50 -Photo Taken Yes -Epithelialization Small 1-33% -Tunneling No -Undermining/Tunneling No -Circular Undermining No -Classification - Mitchell Grading ( Grade 2 Diabetic Ulcer) -Exudate Amt Small -Exudate Type Serosanguineous -Wound Margin Flat & Intact -Granulation Amt None Present (0 %) -Slough/Fibrin Yes -Necrosis Amt Large (67-100%) -Necrotic Tissue Type Adherent Slough -Structure Exposed N/A -Texture (Kanwal-wound Skin Appearance) Assessed, Localized Edema -Moisture (Kanwal-wound Skin Appearance Assessed,Dry/ ) Scaly -Color (Kanwal-wound Skin Appearance) Assessed -Temperature (Kanwal-wound Skin No Abnormality Appearance) (Pt Warm) -Tenderness on Palpation (Kanwal-wound No Skin Appearance) -Ulcer Cleansing Rinsed/ Irrigated with Saline -Foul Odor after Cleansing No -Anesthetic Used 4% Lidocaine Solution 3-Left anterior almeida -Combined with other wound No -Current Size (cm) - Length 2.4 -Current Size (cm) - Width 1.0 -Current Size (cm) - Depth 0.2 -Total Square Cm 2.40 -Photo Taken Yes -Epithelialization Medium 34-66% -Tunneling No -Undermining/Tunneling No -Circular Undermining No -Classification - Mitchell Grading ( Grade 2 Diabetic Ulcer) -Exudate Amt Medium -Exudate Type Serosanguineous -Wound Margin Flat & Intact -Granulation Amt None Present (0 %) -Necrosis Amt Large (67-100%) -Necrotic Tissue Type Adherent Slough -Structure Exposed N/A -Texture (Kanwal-wound Skin Appearance) Assessed, Localized Edema -Moisture (Kanwal-wound Skin Appearance Assessed,Dry/ ) Scaly -Color (Kanwal-wound Skin Appearance) Assessed -Temperature (Kanwal-wound Skin No Abnormality Appearance) (Pt Warm) -Tenderness on Palpation (Kanwal-wound No Skin Appearance) -Ulcer Cleansing Rinsed/ Irrigated with Saline -Foul Odor after Cleansing No -Anesthetic Used 4% Lidocaine Solution [Edema Assessment] -Lower Limb Edema Present Yes -Right Calf (cm) 47.6 -Right Ankle (cm) 28.0 -Left Calf (cm) 56.4 -Left Ankle (cm) 31.6 WC - Nurse 2 - General Ulcer CM Notes Start: 10/13/19 12:28 Freq: Status: Active Protocol: Activity Type Activity Date Activity User E-Sign Co-Sign Detail Recorded Client Recorded Date Recorded By Document 10/13/19 13:56 DV [id number] 10/13/19 13:59 DV 10/13/19 13:56 Wound Center Nurse 2 [Procedure/Treatment] 4-left lateral almeida cluster -Time 13:57 -Correct Patient Yes -Correct Side, Site, Position Yes -Correct Procedure Yes -Procedure Performed Yes -Type of Procedure Debridement -Clinical Debridement Subcutaneous -Post Debridement Size (cm) - Length 4.0 -Post Debridement Size (cm) - Width 5.0 -Post Debridement Size (cm) - Depth 0.1 -Total Square Cm 20.00 -Wound/Ulcer Outcome Not Healed -Foul Odor after Cleansing No -Bioengineered Tissue No -Bleeding Controlled with Pressure -Offloading No -Treatment Response Procedure Tolerated Well 3-Left anterior almeida -Time 13:57 -Correct Patient Yes -Correct Side, Site, Position Yes -Correct Procedure Yes -Procedure Performed Yes -Type of Procedure Debridement -Clinical Debridement Subcutaneous -Post Debridement Size (cm) - Length 3.0 -Post Debridement Size (cm) - Width 1.0 -Post Debridement Size (cm) - Depth 0.2 -Total Square Cm 3.00 -Wound/Ulcer Outcome Not Healed -Ulcer Cleansing Rinsed/ Irrigated with Saline -Foul Odor after Cleansing No -Bioengineered Tissue No -Bleeding Controlled with Pressure -Offloading No -Treatment Response Procedure Tolerated Well [See Physician Procedure note for Specifics] Pain Scale: 0-10 Numeric [Pain] -Is Patient Pain Free? Yes Psych/Mental Status: Normal Affect, Appropriate Debridement Note Post-Debridement Measurements/Treatment WC - Nurse 2 - General Ulcer CM Notes Start: 10/13/19 12:28 Freq: Status: Active Protocol: Activity Type Activity Date Activity User E-Sign Co-Sign Detail Recorded Client Recorded Date Recorded By Document 10/13/19 13:56 DV [id number] 10/13/19 13:59 DV 10/13/19 13:56 Wound Center Nurse 2 4-left lateral almeida cluster -Time 13:57 -Correct Patient Yes -Correct Side, Site, Position Yes -Correct Procedure Yes -Procedure Performed Yes -Type of Procedure Debridement -Clinical Debridement Subcutaneous -Post Debridement Size (cm) - Length 4.0 -Post Debridement Size (cm) - Width 5.0 -Post Debridement Size (cm) - Depth 0.1 -Total Square Cm 20.00 -Wound/Ulcer Outcome Not Healed -Foul Odor after Cleansing No -Bioengineered Tissue No -Bleeding Controlled with Pressure -Offloading No -Treatment Response Procedure Tolerated Well 3-Left anterior almeida -Time 13:57 -Correct Patient Yes -Correct Side, Site, Position Yes -Correct Procedure Yes -Procedure Performed Yes -Type of Procedure Debridement -Clinical Debridement Subcutaneous -Post Debridement Size (cm) - Length 3.0 -Post Debridement Size (cm) - Width 1.0 -Post Debridement Size (cm) - Depth 0.2 -Total Square Cm 3.00 -Wound/Ulcer Outcome Not Healed -Ulcer Cleansing Rinsed/ Irrigated with Saline -Foul Odor after Cleansing No -Bioengineered Tissue No -Bleeding Controlled with Pressure -Offloading No -Treatment Response Procedure Tolerated Well Pain Scale: 0-10 Numeric Is Patient Pain Free? Yes Wound debrided: left lateral almeida cluster Laterality: Left Type of Debridement: Excisional debridement Anesthesia Used: 4% Lidocaine Solution, 5% Lidocaine Gel Depth: Down to and including healthy tissue, in the subcutaneous layer Percentage of wound debrided: 100 Instrument Used: 5mm curette Tissue Removed: Yellow slough, devitalized tissue Severity: Fat Layer Exposed Amount of bleeding with debridement: Mild Bleeding Controlled with: Compression and gauze Patient tolerated procedure well - Additional Wound Wound debrided: left almeida Laterality: Left Type of Debridement: Excisional debridement Anesthesia Used: 4% Lidocaine Solution, 5% Lidocaine Gel Depth: Down to and including healthy tissue, in the subcutaneous layer Percentage of wound debrided: 100 Instrument Used: 5mm curette Tissue Removed: Yellow slough, devitalized tissue Severity: Fat Layer Exposed Amount of bleeding with debridement: Mild Bleeding Controlled with: Compression and gauze Patient tolerated procedure: Patient tolerated procedure well Assessment/Plan Active Problems Cat bite of left lower leg (Chronic) Bilateral lower extremity edema (Chronic) Lymphedema of both lower extremities (Chronic) Type II diabetes mellitus (Chronic) Assessment: Left lower extremity cellulitis and puncture wound due to cat scratch in a patient with diabetes mellitus and bilateral lower extremity edema. left lower extremity cellulitis (mild). Plan: Cindy's wounds and left lower leg were evaluated. Will have her complete oral antibiotic treatment that she is presently taking of Keflex. Will have her use adaptic and Aquacel Ag to her wounds and cover with gauze and/or Kerlix and secure with STEFANIA wrap. Will have her continue to use STEFANIA wraps for compression. She was advised to elevate lower extremities when seated in bed. Optimal blood sugar control recommended. Increased protein intake encouraged. Call with any increased pain, drainage, odor, erythema or edema. F/U in 1 week as NV and 2 weeks for wound care visit.
== END 2019-10-17 23:59 ==
LOC: WC 12:11
PROVIDERS: PCP Family Medicine; Visit Provider Family Medicine
DX: S81.852A Open bite, left lower leg, initial encounter (principal); W55.01XA Bitten by cat, initial encounter; I89.0 Lymphedema, not elsewhere classified; R60.0 Localized edema; E11.9 Type 2 diabetes mellitus without complications; J45.909 Unspecified asthma, uncomplicated; Z86.711 Personal history of pulmonary embolism; Z86.718 Personal history of other venous thrombosis and embolism; L03.116 Cellulitis of left lower limb
CPT/HCPCS: 11042; 11043; 11045; 99213; G0463

== ENCOUNTER 2019-11-10 12:30 | Outpatient (RCR) | payer MEDICARE, SELFPAY ==
[2019-10-18 00:40] VITALS: BP 136/56; PULSE 100; RESP 18; TEMP 36.6
[2019-10-19 13:25] VITALS: BP 138/84; PULSE 80; RESP 18; TEMP 37.7; BMI 38.7
[2019-10-27 10:53] VITALS: BP 133/67; PULSE 79; RESP 18; TEMP 36.7; BMI 38.7
--- NOTE | 2019-10-27 16:22 | PN.PCM_ITS ---
(1) Cat bite of left lower leg Status: Chronic Current Visit: Yes Qualifiers: Encounter type: subsequent encounter Qualified Code(s): S81.852D - Open bite, left lower leg, subsequent encounter; W55.01XD - Bitten by cat, subsequent encounter Code(s): S81.852A - Open bite, left lower leg, initial encounter; W55.01XA - Bitten by cat, initial encounter (2) Cellulitis Status: Acute Current Visit: Yes Qualifiers: Site of cellulitis: extremity Site of cellulitis of extremity: lower extremity Laterality: right Qualified Code(s): L03.115 - Cellulitis of right lower limb Code(s): L03.90 - Cellulitis, unspecified (3) Bilateral lower extremity edema Status: Chronic Current Visit: Yes Code(s): R60.0 - Localized edema (4) Lymphedema of both lower extremities Status: Chronic Current Visit: Yes Code(s): I89.0 - Lymphedema, not elsewhere classified Type of Wound Date of Service: 10/27/19 Chief Complaint: Left lower extremity cat bite/cellulitis, chronic lymphedema History of Wound: Ms. 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 She was seen by her PCP Dr. Dillon Daigle and prescribed Cipro and Flagyl and was applying adaptic and silvadene to the wounds. She saw Dr. Estevez, her oncologist on 10/06/2019 who prescribed her keflex and advised that she should be seen at the wound center for follow up treatment of the cat bite wounds to her left calf. She has significant swelling of her bilateral lower extremities and chronic lymphedema which recently has become much better controlled. She denies chills, fever or otherwise feeling unwell. Progress of Wound: Cindy is here for follow up of a cat bite to her left lower extremity. She has been using aquacel Ag dressings and adaptic and completed antibiotic treatment. There is still some erythema around her wound but no odor. She has significant edema b/l with weeping of seroius drainage from her lower legs b/l. There are currently no visible blisters. - Physical Exam Vital Signs Temp Pulse Resp BP 98.0 F 79 18 133/67 H 10/27/19 10:53 10/27/19 10:53 10/27/19 10:53 10/27/19 10:53 General: Alert, Oriented x3, Cooperative, No apparent distress HEENT: Atraumatic, Normocephalic Oral: Moist Mucosa Abdomen: Obese Extremities: Edema Skin: Ulcer/ Wound Wound Measurements and Assessment WC - Nurse 1 - General Ulcer Measurement Start: 10/19/19 13:24 Freq: Status: Active Protocol: Activity Type Activity Date Activity User E-Sign Co-Sign Detail Recorded Client Recorded Date Recorded By Document 10/27/19 10:53 MW [id number] 10/27/19 11:08 MW 10/27/19 10:53 Wound Center Nurse 1 [Ulcer Assessment] 4-left lateral almeida cluster -Combined with other wound No -Current Size (cm) - Length 3.0 -Current Size (cm) - Width 4.5 -Current Size (cm) - Depth 0.1 -Total Square Cm 13.50 -Photo Taken No -Epithelialization None Present -Tunneling No -Undermining/Tunneling No -Circular Undermining No -Exudate Amt None Present -Wound Margin Flat & Intact -Granulation Amt None Present (0 %) -Granulation Quality N/A -Slough/Fibrin Yes -Necrosis Amt Large (67-100%) -Necrotic Tissue Type Adherent Slough -Structure Exposed N/A -Texture (Kanwal-wound Skin Appearance) Assessed, Localized Edema ,Scarring -Moisture (Kanwal-wound Skin Appearance No Abnormality, ) Assessed -Color (Kanwal-wound Skin Appearance) Assessed,Rubor -Temperature (Kanwal-wound Skin No Abnormality Appearance) (Pt Warm) -Tenderness on Palpation (Kanwal-wound No Skin Appearance) -Ulcer Cleansing soap and water -Foul Odor after Cleansing No -Anesthetic Used 4% Lidocaine Solution 3-Left anterior almeida -Combined with other wound No -Current Size (cm) - Length 2.4 -Current Size (cm) - Width 2.0 -Current Size (cm) - Depth 0.1 -Total Square Cm 4.80 -Photo Taken No -Epithelialization None Present -Tunneling No -Undermining/Tunneling No -Circular Undermining No -Exudate Amt None Present -Wound Margin Flat & Intact -Granulation Amt None Present (0 %) -Granulation Quality N/A -Slough/Fibrin No -Necrosis Amt Large (67-100%) -Necrotic Tissue Type Adherent Slough -Structure Exposed N/A -Texture (Kanwal-wound Skin Appearance) Assessed, Localized Edema -Moisture (Kanwal-wound Skin Appearance No Abnormality, ) Assessed -Color (Kanwal-wound Skin Appearance) Assessed,Rubor -Temperature (Kanwal-wound Skin No Abnormality Appearance) (Pt Warm) -Tenderness on Palpation (Kanwal-wound No Skin Appearance) -Ulcer Cleansing soap and water -Foul Odor after Cleansing No -Anesthetic Used 4% Lidocaine Solution [Edema Assessment] -Lower Limb Edema Present Yes -Right Calf (cm) 48.5 -Point of measurement (cm from the 26.0 medial instep) -Right Ankle (cm) 28.5 -Point of Measurement (cm from the 10.0 medial instep) -Left Calf (cm) 54.5 -Point of measurement (cm from the 30.0 medial instep) -Left Ankle (cm) 31.4 -Point of Measurement (cm from the 10.0 medial instep) WC - Nurse 2 - General Ulcer CM Notes Start: 10/19/19 13:24 Freq: Status: Active Protocol: Activity Type Activity Date Activity User E-Sign Co-Sign Detail Recorded Client Recorded Date Recorded By Document 10/27/19 11:35 DV [id number] 10/27/19 11:44 DV 10/27/19 11:35 Wound Center Nurse 2 [Procedure/Treatment] 4-left lateral almeida cluster -Time 11:39 -Correct Patient Yes -Correct Side, Site, Position Yes -Correct Procedure Yes -Procedure Performed Yes -Type of Procedure Debridement -Clinical Debridement Subcutaneous -Post Debridement Size (cm) - Length 3.3 -Post Debridement Size (cm) - Width 4.5 -Post Debridement Size (cm) - Depth 0.2 -Total Square Cm 14.85 -Wound/Ulcer Outcome Not Healed -Ulcer Cleansing Rinsed/ Irrigated with Saline -Foul Odor after Cleansing No -Bioengineered Tissue No -Bleeding Controlled with Pressure -Treatment Response Procedure Tolerated Well 3-Left anterior almeida -Time 11:39 -Correct Patient Yes -Correct Side, Site, Position Yes -Correct Procedure Yes -Procedure Performed Yes -Type of Procedure Debridement -Clinical Debridement Subcutaneous -Post Debridement Size (cm) - Length 2.0 -Post Debridement Size (cm) - Width 1.3 -Post Debridement Size (cm) - Depth 0.3 -Total Square Cm 2.60 -Wound/Ulcer Outcome Not Healed -Ulcer Cleansing Rinsed/ Irrigated with Saline -Foul Odor after Cleansing No -Bleeding Controlled with Pressure -Offloading No -Treatment Response Procedure Tolerated Well [See Physician Procedure note for Specifics] Pain Scale: 0-10 Numeric [Pain] -Is Patient Pain Free? Yes Psych/Mental Status: Normal Affect, Appropriate Debridement Note Post-Debridement Measurements/Treatment WC - Nurse 2 - General Ulcer CM Notes Start: 10/19/19 13:24 Freq: Status: Active Protocol: Activity Type Activity Date Activity User E-Sign Co-Sign Detail Recorded Client Recorded Date Recorded By Document 10/27/19 11:35 DV [id number] 10/27/19 11:44 DV 10/27/19 11:35 Wound Center Nurse 2 4-left lateral almeida cluster -Time 11:39 -Correct Patient Yes -Correct Side, Site, Position Yes -Correct Procedure Yes -Procedure Performed Yes -Type of Procedure Debridement -Clinical Debridement Subcutaneous -Post Debridement Size (cm) - Length 3.3 -Post Debridement Size (cm) - Width 4.5 -Post Debridement Size (cm) - Depth 0.2 -Total Square Cm 14.85 -Wound/Ulcer Outcome Not Healed -Ulcer Cleansing Rinsed/ Irrigated with Saline -Foul Odor after Cleansing No -Bioengineered Tissue No -Bleeding Controlled with Pressure -Treatment Response Procedure Tolerated Well 3-Left anterior almeida -Time 11:39 -Correct Patient Yes -Correct Side, Site, Position Yes -Correct Procedure Yes -Procedure Performed Yes -Type of Procedure Debridement -Clinical Debridement Subcutaneous -Post Debridement Size (cm) - Length 2.0 -Post Debridement Size (cm) - Width 1.3 -Post Debridement Size (cm) - Depth 0.3 -Total Square Cm 2.60 -Wound/Ulcer Outcome Not Healed -Ulcer Cleansing Rinsed/ Irrigated with Saline -Foul Odor after Cleansing No -Bleeding Controlled with Pressure -Offloading No -Treatment Response Procedure Tolerated Well Pain Scale: 0-10 Numeric Is Patient Pain Free? Yes Wound debrided: left lateral almeida cluster Laterality: Left Type of Debridement: Excisional debridement Anesthesia Used: 4% Lidocaine Solution, 5% Lidocaine Gel Depth: Down to and including healthy tissue, in the subcutaneous layer Percentage of wound debrided: 100 Instrument Used: 3mm curette Tissue Removed: yellow slough, devitalized tissue Severity: Fat Layer Exposed Amount of bleeding with debridement: Mild Bleeding Controlled with: Compression and gauze Patient tolerated procedure well - Additional Wound Wound debrided: left anterior almeida Laterality: Left Type of Debridement: Excisional debridement Anesthesia Used: 4% Lidocaine Solution, 5% Lidocaine Gel Depth: Down to and including healthy tissue, in the subcutaneous layer Percentage of wound debrided: 100 Instrument Used: 3mm curette Tissue Removed: yellow slough, devitalized tissue Severity: Fat Layer Exposed Amount of bleeding with debridement: Mild Bleeding Controlled with: Compression and gauze Patient tolerated procedure: Patient tolerated procedure well Assessment/Plan Active Problems Cat bite of left lower leg (Chronic) Cellulitis (Acute) Bilateral lower extremity edema (Chronic) Lymphedema of both lower extremities (Chronic) Assessment: Left lower extremity cellulitis and puncture wound due to cat scrat ch in a patient with diabetes mellitus and bilateral lower extremity edema. left lower extremity cellulitis (mild). Plan: Cindy's wounds and left lower leg were evaluated. Wound culture taken today. Will have her continue to use adaptic and Aquacel Ag to her wounds and cover with gauze and/or Kerlix and secure with Surepress wrap. Will have her continue to use Surepress wraps for compression. She was advised to elevate lower extremities when seated in bed. Optimal blood sugar control recommended. Increased protein intake encouraged. Call with any increased pain, drainage, odor, erythema or edema. F/U in 1 week for wound care visit.
[2019-10-27 17:11] LABS: M R Staph aureus DNA By PCR POSITIVE (Negative)
[2019-10-27 17:12] LABS: Probe Check PASS; Staph aureus DNA By PCR POSITIVE (Negative)
[2019-11-03 12:04] VITALS: RESP 18; TEMP 36.8; BMI 38.7
--- NOTE | 2019-11-03 14:14 | PCM.WC.PN ---
(1) Cat bite of left lower leg Status: Chronic Current Visit: Yes Qualifiers: Encounter type: subsequent encounter Qualified Code(s): S81.852D - Open bite, left lower leg, subsequent encounter; W55.01XD - Bitten by cat, subsequent encounter Code(s): S81.852A - Open bite, left lower leg, initial encounter; W55.01XA - Bitten by cat, initial encounter (2) Cellulitis Status: Acute Current Visit: Yes Qualifiers: Site of cellulitis: extremity Site of cellulitis of extremity: lower extremity Laterality: right Qualified Code(s): L03.115 - Cellulitis of right lower limb Code(s): L03.90 - Cellulitis, unspecified (3) Bilateral lower extremity edema Status: Chronic Current Visit: Yes Code(s): R60.0 - Localized edema (4) Lymphedema of both lower extremities Status: Chronic Current Visit: Yes Code(s): I89.0 - Lymphedema, not elsewhere classified Type of Wound Date of Service: 11/03/19 Chief Complaint: Left lower extremity cat bite/cellulitis, chronic lymphedema History of Wound: Ms. 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 She was seen by her PCP Dr. Dillon Daigle and prescribed Cipro and Flagyl and was applying adaptic and silvadene to the wounds. She saw Dr. Estevez, her oncologist on 10/06/2019 who prescribed her keflex and advised that she should be seen at the wound center for follow up treatment of the cat bite wounds to her left calf. She has significant swelling of her bilateral lower extremities and chronic lymphedema which recently has become much better controlled. She denies chills, fever or otherwise feeling unwell. Progress of Wound: Cindy is here for follow up of a cat bite to her left lower extremity. She has been using Aquacel Ag dressings and adaptic. She just started antibiotic treatment for MRSA wound culture yesterday with doxycycline. There is still some erythema around her wound but no odor. She has significant edema b/l with copious/very heavy drainage of serous fluid from her lower legs b/l. There are currently some visible blisters on her left almeida. Her daughter reports that she is noncompliant with elevating her legs, wearing compression and wearing bandages over her wounds. Patient reports that she is unable to tolerate surepress bandages due to pain in her legs. - Physical Exam Vital Signs Temp Pulse Resp BP 98.2 F 79 18 133/67 H 11/03/19 12:04 10/27/19 10:53 11/03/19 12:04 10/27/19 10:53 General: Alert, Oriented x3, Cooperative, No apparent distress HEENT: Atraumatic, Normocephalic Oral: Moist Mucosa Abdomen: Obese Extremities: Edema Skin: Ulcer/ Wound Wound Measurements and Assessment WC - Nurse 1 - General Ulcer Measurement Start: 10/19/19 13:24 Freq: Status: Active Protocol: Activity Type Activity Date Activity User E-Sign Co-Sign Detail Recorded Client Recorded Date Recorded By Document 11/03/19 12:04 MW [id number] 11/03/19 12:11 MW 11/03/19 12:04 Wound Center Nurse 1 [Ulcer Assessment] 4-left lateral almeida cluster -Combined with other wound No -Current Size (cm) - Length 2.9 -Current Size (cm) - Width 3.3 -Current Size (cm) - Depth 0.3 -Total Square Cm 9.57 -Photo Taken No -Epithelialization None Present -Tunneling No -Undermining/Tunneling No -Circular Undermining No -Exudate Amt Large -Exudate Type Serosanguineous -Wound Margin Flat & Intact -Granulation Amt Small (1-33%) -Granulation Quality Red -Slough/Fibrin Yes -Necrosis Amt Large (67-100%) -Necrotic Tissue Type Adherent Slough -Structure Exposed N/A -Texture (Kanwal-wound Skin Appearance) Assessed, Localized Edema -Moisture (Kanwal-wound Skin Appearance Assessed, ) Weeping -Color (Kanwal-wound Skin Appearance) Assessed, Hemosiderin Staining -Temperature (Kanwal-wound Skin No Abnormality Appearance) (Pt Warm) -Tenderness on Palpation (Kanwal-wound No Skin Appearance) -Ulcer Cleansing Rinsed/ Irrigated with Saline -Foul Odor after Cleansing No -Anesthetic Used 4% Lidocaine Solution 3-Left anterior almeida -Combined with other wound No -Current Size (cm) - Length 1.4 -Current Size (cm) - Width 1.1 -Current Size (cm) - Depth 0.2 -Total Square Cm 1.54 -Photo Taken No -Epithelialization None Present -Tunneling No -Undermining/Tunneling No -Circular Undermining No -Exudate Amt Large -Exudate Type Serosanguineous -Wound Margin Flat & Intact -Granulation Amt Small (1-33%) -Granulation Quality [place] -Necrosis Amt Large (67-100%) -Necrotic Tissue Type Adherent Slough -Structure Exposed N/A -Texture (Kanwal-wound Skin Appearance) Assessed, Localized Edema -Moisture (Kanwal-wound Skin Appearance Assessed, ) Weeping -Color (Kanwal-wound Skin Appearance) Assessed, Hemosiderin Staining,Rubor -Temperature (Kanwal-wound Skin No Abnormality Appearance) (Pt Warm) -Ulcer Cleansing Rinsed/ Irrigated with Saline -Foul Odor after Cleansing No -Anesthetic Used 4% Lidocaine Solution [Edema Assessment] -Lower Limb Edema Present Yes -Right Calf (cm) 48.5 -Right Ankle (cm) 27.9 -Left Calf (cm) 54.6 -Left Ankle (cm) 31.0 WC - Nurse 2 - General Ulcer CM Notes Start: 10/19/19 13:24 Freq: Status: Active Protocol: Activity Type Activity Date Activity User E-Sign Co-Sign Detail Recorded Client Recorded Date Recorded By Document 11/03/19 12:54 DV [id number] 11/03/19 13:00 DV 11/03/19 12:54 Wound Center Nurse 2 [Procedure/Treatment] 4-left lateral almeida cluster -Time 12:57 -Correct Patient Yes -Correct Side, Site, Position Yes -Correct Procedure Yes -Procedure Performed Yes -Type of Procedure Debridement -Clinical Debridement Subcutaneous -Post Debridement Size (cm) - Length 3.0 -Post Debridement Size (cm) - Width 3.1 -Post Debridement Size (cm) - Depth 0.2 -Total Square Cm 9.30 -Wound/Ulcer Outcome Not Healed -Ulcer Cleansing Rinsed/ Irrigated with Saline -Foul Odor after Cleansing No -Bioengineered Tissue No -Bleeding Controlled with Pressure -Offloading No -Treatment Response Procedure Tolerated Well 3-Left anterior almeida -Time 12:57 -Correct Patient Yes -Correct Side, Site, Position Yes -Correct Procedure Yes -Procedure Performed Yes -Type of Procedure Debridement -Clinical Debridement Subcutaneous -Post Debridement Size (cm) - Length 1.9 -Post Debridement Size (cm) - Width 1.8 -Post Debridement Size (cm) - Depth 0.3 -Total Square Cm 3.42 -Wound/Ulcer Outcome Not Healed -Ulcer Cleansing Rinsed/ Irrigated with Saline -Foul Odor after Cleansing No -Bioengineered Tissue No -Bleeding Controlled with Pressure -Offloading No -Treatment Response Procedure Tolerated Well [See Physician Procedure note for Specifics] Psych/Mental Status: Normal Affect, Appropriate Debridement Note Post-Debridement Measurements/Treatment WC - Nurse 2 - General Ulcer CM Notes Start: 10/19/19 13:24 Freq: Status: Active Protocol: Activity Type Activity Date Activity User E-Sign Co-Sign Detail Recorded Client Recorded Date Recorded By Document 10/27/19 11:35 DV [id number] 10/27/19 11:44 DV Document 11/03/19 12:54 DV [id number] 11/03/19 13:00 DV 10/27/19 11/03/19 11:35 12:54 Wound Center Nurse 2 4-left lateral almeida cluster -Time 11:39 12:57 -Correct Patient Yes Yes -Correct Side, Site, Position Yes Yes -Correct Procedure Yes Yes -Procedure Performed Yes Yes -Type of Procedure Debridement Debridement -Clinical Debridement Subcutaneous Subcutaneous -Post Debridement Size (cm) - Length 3.3 3.0 -Post Debridement Size (cm) - Width 4.5 3.1 -Post Debridement Size (cm) - Depth 0.2 0.2 -Total Square Cm 14.85 9.30 -Wound/Ulcer Outcome Not Healed Not Healed -Ulcer Cleansing Rinsed/ Rinsed/ Irrigated with Irrigated with Saline Saline -Foul Odor after Cleansing No No -Bioengineered Tissue No No -Bleeding Controlled with Pressure Pressure -Offloading No -Treatment Response Procedure Procedure Tolerated Well Tolerated Well 3-Left anterior almeida -Time 11:39 12:57 -Correct Patient Yes Yes -Correct Side, Site, Position Yes Yes -Correct Procedure Yes Yes -Procedure Performed Yes Yes -Type of Procedure Debridement Debridement -Clinical Debridement Subcutaneous Subcutaneous -Post Debridement Size (cm) - Length 2.0 1.9 -Post Debridement Size (cm) - Width 1.3 1.8 -Post Debridement Size (cm) - Depth 0.3 0.3 -Total Square Cm 2.60 3.42 -Wound/Ulcer Outcome Not Healed Not Healed -Ulcer Cleansing Rinsed/ Rinsed/ Irrigated with Irrigated with Saline Saline -Foul Odor after Cleansing No No -Bioengineered Tissue No -Bleeding Controlled with Pressure Pressure -Offloading No No -Treatment Response Procedure Procedure Tolerated Well Tolerated Well Pain Scale: 0-10 Numeric Is Patient Pain Free? Yes Wound debrided: left lateral almeida cluster Laterality: Left Type of Debridement: Excisional debridement Anesthesia Used: 4% Lidocaine Solution Depth: Down to and including healthy tissue, in the subcutaneous layer Percentage of wound debrided: 100 Instrument Used: 3mm curette Tissue Removed: Yellow slough, devitalized tissue Severity: Fat Layer Exposed Amount of bleeding with debridement: Mild Bleeding Controlled with: Compression and gauze Patient tolerated procedure well - Additional Wound Wound debrided: left anterior almeida Laterality: Left Type of Debridement: Excisional debridement Anesthesia Used: 4% Lidocaine Solution, 5% Lidocaine Gel Depth: Down to and including healthy tissue, in the subcutaneous layer Percentage of wound debrided: 100 Instrument Used: 3mm curette Tissue Removed: Yellow slough, devitalized tissue Severity: Fat Layer Exposed Amount of bleeding with debridement: Mild Bleeding Controlled with: Compression and gauze Patient tolerated procedure: Patient tolerated procedure well Assessment/Plan Active Problems Cat bite of left lower leg (Chronic) Cellulitis (Acute) Bilateral lower extremity edema (Chronic) Lymphedema of both lower extremities (Chronic) Assessment: Left lower extremity cellulitis and puncture wound due to cat scratch in a patient with diabetes mellitus and bilateral lower extremity edema. left lower extremity cellulitis (mild). Plan: Cindy's wounds and left lower leg were evaluated and debrided today. Doxycycline 100 mg was prescribed twice daily for 10 days. Will have her continue to use adaptic and Aquacel Ag to her wounds and cover with gauze and/or Kerlix. She was encouraged to elevate lower extremities when seated in bed. Optimal blood sugar control recommended. Increased protein intake encouraged. Call with any increased pain, drainage, odor, erythema or edema. F/U in 1 week for wound care visit.
[2019-11-10 13:07] VITALS: BP 160/76; PULSE 104; RESP 22; TEMP 37.1; BMI 38.7
--- NOTE | 2019-11-10 16:32 | PN.PCM_ITS ---
(1) Cat bite of left lower leg Status: Chronic Current Visit: Yes Qualifiers: Encounter type: subsequent encounter Qualified Code(s): S81.852D - Open bite, left lower leg, subsequent encounter; W55.01XD - Bitten by cat, subsequent encounter Code(s): S81.852A - Open bite, left lower leg, initial encounter; W55.01XA - Bitten by cat, initial encounter (2) Cellulitis Status: Acute Current Visit: Yes Qualifiers: Site of cellulitis: extremity Site of cellulitis of extremity: lower extremity Laterality: right Qualified Code(s): L03.115 - Cellulitis of right lower limb Code(s): L03.90 - Cellulitis, unspecified (3) Bilateral lower extremity edema Status: Chronic Current Visit: Yes Code(s): R60.0 - Localized edema (4) Lymphedema of both lower extremities Status: Chronic Current Visit: Yes Code(s): I89.0 - Lymphedema, not elsewhere classified Type of Wound Date of Service: 11/10/19 Chief Complaint: Left lower extremity cat bite/cellulitis, chronic lymphedema History of Wound: Ms. 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 She was seen by her PCP Dr. Dillon Daigle and prescribed Cipro and Flagyl and was applying adaptic and silvadene to the wounds. She saw Dr. Estevez, her oncologist on 10/06/2019 who prescribed her keflex and advised that she should be seen at the wound center for follow up treatment of the cat bite wounds to her left calf. She has significant swelling of her bilateral lower extremities and chronic lymphedema which recently has become much better controlled. She denies chills, fever or otherwise feeling unwell. Progress of Wound: Cindy is here for follow up of a cat bite to her left lower extremity. She has been using Aquacel Ag dressings and adaptic. She has 3 days left of doxycycline. There is still some erythema around her wound but no odor. She has significant edema b/l with copious/very heavy drainage of serous fluid from her lower legs b/l. There are currently some visible blisters on her left almieda. Her daughter reports that she is noncompliant with elevating her legs, wearing compression and wearing bandages over her wounds. Patient reports that she is unable to tolerate surepress bandages due to pain in her legs. - Physical Exam Vital Signs Temp Pulse Resp BP 98.8 F 104 H 22 H 160/76 H 11/10/19 13:07 11/10/19 13:07 11/10/19 13:07 11/10/19 13:07 General: Alert, Oriented x3, Cooperative, No apparent distress HEENT: Atraumatic, Normocephalic Oral: Moist Mucosa Abdomen: Obese Extremities: Edema Skin: Ulcer/ Wound Wound Measurements and Assessment WC - Nurse 1 - General Ulcer Measurement Start: 10/19/19 13:24 Freq: Status: Active Protocol: Activity Type Activity Date Activity User E-Sign Co-Sign Detail Recorded Client Recorded Date Recorded By Document 11/10/19 13:07 DL [id number] 11/10/19 13:15 DL 11/10/19 13:07 Wound Center Nurse 1 [Ulcer Assessment] 4-left lateral almeida cluster -Current Size (cm) - Length 0.5 -Current Size (cm) - Width 2.2 -Current Size (cm) - Depth 0.3 -Total Square Cm 1.10 -Photo Taken No -Exudate Amt Small -Exudate Type Serosanguineous -Wound Margin Distinct, Outline Attached -Granulation Amt Large (67-100%) -Granulation Quality [place] -Necrosis Amt Medium (34-66%) -Necrotic Tissue Type Adherent Slough -Structure Exposed N/A -Moisture (Kanwal-wound Skin Appearance Weeping ) -Color (Kanwal-wound Skin Appearance) Hemosiderin Staining -Temperature (Kanwal-wound Skin No Abnormality Appearance) (Pt Warm) -Tenderness on Palpation (Kanwal-wound No Skin Appearance) -Ulcer Cleansing Wound Cleanser -Foul Odor after Cleansing No -Anesthetic Used 4% Lidocaine Solution 3-Left anterior almeida -Current Size (cm) - Length 1.5 -Current Size (cm) - Width 1.4 -Current Size (cm) - Depth 0.4 -Total Square Cm 2.10 -Tunneling Position (O'clock) 12 -Tunneling Distance (cm) 0.4 -Exudate Amt Medium -Exudate Type Serosanguineous -Wound Margin Distinct, Outline Attached -Granulation Amt None Present (0 %) -Necrosis Amt Large (67-100%) -Necrotic Tissue Type Adherent Slough -Structure Exposed N/A -Texture (Kanwal-wound Skin Appearance) Scarring -Moisture (Kanwal-wound Skin Appearance Weeping ) -Color (Kanwal-wound Skin Appearance) Hemosiderin Staining -Temperature (Kanwal-wound Skin No Abnormality Appearance) (Pt Warm) -Tenderness on Palpation (Kanwal-wound No Skin Appearance) -Ulcer Cleansing Wound Cleanser -Foul Odor after Cleansing No -Anesthetic Used 4% Lidocaine Solution [Edema Assessment] -Right Calf (cm) 49 -Right Ankle (cm) 29.5 -Right Foot (cm) 55 -Left Calf (cm) 31.8 WC - Nurse 2 - General Ulcer CM Notes Start: 10/19/19 13:24 Freq: Status: Active Protocol: Activity Type Activity Date Activity User E-Sign Co-Sign Detail Recorded Client Recorded Date Recorded By Document 11/10/19 13:34 DV [id number] 11/10/19 13:44 DV 11/10/19 13:34 Wound Center Nurse 2 [Procedure/Treatment] 4-left lateral almeida cluster -Time 13:34 -Correct Patient Yes -Correct Side, Site, Position Yes -Correct Procedure Yes -Procedure Performed Yes -Type of Procedure Debridement -Clinical Debridement Subcutaneous -Post Debridement Size (cm) - Length 1.5 -Post Debridement Size (cm) - Width 1.8 -Post Debridement Size (cm) - Depth 0.2 -Total Square (cm) 2.70 -Wound/Ulcer Outcome Not Healed -Ulcer Cleansing Rinsed/ Irrigated with Saline -Foul Odor after Cleansing No -Bioengineered Tissue No -Bleeding Controlled with Pressure -Offloading No -Treatment Response Procedure Tolerated Well 3-Left anterior almeida -Time 13:34 -Correct Patient Yes -Correct Side, Site, Position Yes -Correct Procedure Yes -Procedure Performed Yes -Type of Procedure Debridement -Clinical Debridement Subcutaneous -Post Debridement Size (cm) - Length 2.0 -Post Debridement Size (cm) - Width 1.0 -Post Debridement Size (cm) - Depth 0.3 -Total Square (cm) 2.00 -Wound/Ulcer Outcome Not Healed -Ulcer Cleansing Rinsed/ Irrigated with Saline -Foul Odor after Cleansing No -Bioengineered Tissue No -Bleeding Controlled with Pressure -Offloading No -Treatment Response Procedure Tolerated Well [See Physician Procedure note for Specifics] Pain Scale: 0-10 Numeric [Pain] -Is Patient Pain Free? Yes Psych/Mental Status: Normal Affect, Appropriate Debridement Note Post-Debridement Measurements/Treatment WC - Nurse 2 - General Ulcer CM Notes Start: 10/19/19 13:24 Freq: Status: Active Protocol: Activity Type Activity Date Activity User E-Sign Co-Sign Detail Recorded Client Recorded Date Recorded By Document 10/27/19 11:35 DV [id number] 10/27/19 11:44 DV Document 11/03/19 12:54 DV [id number] 11/03/19 13:00 DV Document 11/10/19 13:34 DV [id number] 11/10/19 13:44 DV 10/27/19 11/03/19 11/10/19 11:35 12:54 13:34 Wound Center Nurse 2 4-left lateral almeida cluster -Time 11:39 12:57 13:34 -Correct Patient Yes Yes Yes -Correct Side, Site, Position Yes Yes Yes -Correct Procedure Yes Yes Yes -Procedure Performed Yes Yes Yes -Type of Procedure Debridement Debridement Debridement -Clinical Debridement Subcutaneous Subcutaneous Subcutaneous -Post Debridement Size (cm) - Length 3.3 3.0 1.5 -Post Debridement Size (cm) - Width 4.5 3.1 1.8 -Post Debridement Size (cm) - Depth 0.2 0.2 0.2 -Total Square (cm) 14.85 9.30 2.70 -Wound/Ulcer Outcome Not Healed Not Healed Not Healed -Ulcer Cleansing Rinsed/ Rinsed/ Rinsed/ Irrigated with Irrigated with Irrigated with Saline Saline Saline -Foul Odor after Cleansing No No No -Bioengineered Tissue No No No -Bleeding Controlled with Pressure Pressure Pressure -Offloading No No -Treatment Response Procedure Procedure Procedure Tolerated Well Tolerated Well Tolerated Well 3-Left anterior almeida -Time 11:39 12:57 13:34 -Correct Patient Yes Yes Yes -Correct Side, Site, Position Yes Yes Yes -Correct Procedure Yes Yes Yes -Procedure Performed Yes Yes Yes -Type of Procedure Debridement Debridement Debridement -Clinical Debridement Subcutaneous Subcutaneous Subcutaneous -Post Debridement Size (cm) - Length 2.0 1.9 2.0 -Post Debridement Size (cm) - Width 1.3 1.8 1.0 -Post Debridement Size (cm) - Depth 0.3 0.3 0.3 -Total Square (cm) 2.60 3.42 2.00 -Wound/Ulcer Outcome Not Healed Not Healed Not Healed -Ulcer Cleansing Rinsed/ Rinsed/ Rinsed/ Irrigated with Irrigated with Irrigated with Saline Saline Saline -Foul Odor after Cleansing No No No -Bioengineered Tissue No No -Bleeding Controlled with Pressure Pressure Pressure -Offloading No No No -Treatment Response Procedure Procedure Procedure Tolerated Well Tolerated Well Tolerated Well Pain Scale: 0-10 Numeric Is Patient Pain Free? Yes Yes Wound debrided: left lateral almeida cluster Laterality: Left Type of Debridement: Excisional debridement Anesthesia Used: 4% Lidocaine Solution Depth: Down to and including healthy tissue, in the subcutaneous layer Percentage of wound debrided: 100 Instrument Used: 5mm curette Tissue Removed: Yellow slough, devitalized tissue Severity: Fat Layer Exposed Amount of bleeding with debridement: Mild Bleeding Controlled with: Compression and gauze Patient tolerated procedure well - Additional Wound Wound debrided: Left anterior almeida Laterality: Left Type of Debridement: Excisional debridement Anesthesia Used: 4% Lidocaine Solution Depth: Down to and including healthy tissue, in the subcutaneous layer Percentage of wound debrided: 100 Instrument Used: 5mm curette Tissue Removed: Yellow slough, devitalized tissue Severity: Fat Layer Exposed Amount of bleeding with debridement: Mild Bleeding Controlled with: Compression and gauze Patient tolerated procedure: Patient tolerated procedure well Assessment/Plan Active Problems Cat bite of left lower leg (Chronic) Cellulitis (Acute) Bilateral lower extremity edema (Chronic) Lymphedema of both lower extremities (Chronic) Assessment: Left lower extremity cellulitis and puncture wound due to cat scratch in a patient with diabetes mellitus and bilateral lower extremity edema. left lower extremity cellulitis (mild). Plan: Cindy's wounds and left lower leg were evaluated and debrided today. Will have her continue to use adaptic and Aquacel Ag to her wounds and cover with gauze and/or Kerlix. She was encouraged to elevate lower extremities when seated in bed. Optimal blood sugar control recommended. Increased protein intake encouraged. Call with any increased pain, drainage, odor, erythema or edema. F/U in 1 week for wound care visit.
== END 2019-11-17 23:59 ==
LOC: WC 12:30
PROVIDERS: PCP Family Medicine; Visit Provider Family Medicine
DX: S81.852A Open bite, left lower leg, initial encounter (principal); W55.01XA Bitten by cat, initial encounter; L03.115 Cellulitis of right lower limb; I89.0 Lymphedema, not elsewhere classified; R60.0 Localized edema; Z86.718 Personal history of other venous thrombosis and embolism; J45.909 Unspecified asthma, uncomplicated; Z79.01 Long term (current) use of anticoagulants; E11.9 Type 2 diabetes mellitus without complications; Z86.711 Personal history of pulmonary embolism
CPT/HCPCS: 11042; 87070; 87075; 87077; 87186; 87205; 87640; 99212; G0463

== ENCOUNTER → 2019-11-21 15:10 | Outpatient (CLI) | payer MEDICARE, SELFPAY ==
[2019-11-10 13:07] VITALS: BMI 38.7
[2019-11-21 18:02] LABS: Absolute Lymphocyte Count 0.64 X10^3/uL (0.83-4.51); Absolute Neutrophil Count 5.4 X10^3/uL (2.0-7.7); Basophil# 0.02 X10^3/uL; Basophil% 0.3 % (0-1); Eosinophil# 0.06 X10^3/uL; Eosinophils% 0.9 % (0-5); Hemoglobin 10.6 g/dL (12.0-15.0); Lymphocyte # 0.64 X10^3/ul (4.0); Lymphocyte % 9.2 % (19-41); Mean Corp Hgb Conc 28.6 g/dL (32-36); Mean Corpuscular Hgb 25.9 pg (27.0-32.0); Mean Corpuscular Volume 90.5 fL (81-99); Mean Platelet Vol. 10.7 fl (6.2-12.0); Monocyte# 0.78 X10^3/uL; Monocyte% 11.2 % (0-10); NRBC Flagged by Analyzer 0 % (0-5); Neutrophil # 5.38 X10^3/uL (2.7-7.7); Neutrophil % 77.1 % (47-70); Platelet Count 180 K/mm3 (150-450); RBC Distribution Width CV 18.6 % (11.6-14.6); RBC Distribution Width SD 61.5 fl (35.1-43.9); Red Blood Count 4.09 M/mm3 (4.2-5.4)
[2019-11-21 18:18] LABS: ALB/GLOB Ratio 0.4 RATIO (0.9-2.4); AST(SGOT) 9 U/L (15-37); Alanine Aminotransfer ALT/SGPT 18 U/L (13-56); Albumin, Serum 2.2 g/dL (3.2-5.0); Alkaline Phosphatase 116 U/L (45-117); Anion Gap 7 (5-15); BUN 19 mg/dL (7-18); BUN/Creat Ratio 15.2 RATIO (10-20); Calcium,Total 9.3 mg/dL (8.5-10.1); Chloride 101 mmol/L (98-107); Creatinine, Serum 1.25 mg/dL (0.55-1.02); EST Glomerular Filtration Rate 45 mL/min (>60); Est Glom Filt Rate - Afr Amer 54 mL/min (>60); Globulin 5.1 g/dL (2.2-4.2); Glucose 265 mg/dL (74-106); Potassium 3.9 mmol/L (3.5-5.1); Protein, Total 7.3 g/dL (6.4-8.2); Sodium Level 134 mmol/L (136-145)
[2019-11-22 00:43] LABS: Erythrocyte Sedimentation Rate > 130 mm/hr (0-30)
== END ==
LOC: MFPLAB 15:13
PROVIDERS: PCP Family Medicine; Referring Provider Family Medicine; Visit Provider Family Medicine
DX: R68.83 Chills (without fever) (principal)
CPT/HCPCS: 36415; 80053; 85025; 85652

== ENCOUNTER 2019-11-24 08:02 | Outpatient (RCR) | payer MEDICARE, SELFPAY ==
[2019-11-18 00:37] VITALS: BP 160/76; PULSE 104; RESP 22; TEMP 37.1
--- NOTE | 2019-11-22 09:47 | WC ---
Spoke to Nancy hyatt from [employer]. Supplies reordered for wound care. Patient to receive in 1-2 days. Message left for patient.
[2019-11-24 13:27] VITALS: BP 147/65; PULSE 124; RESP 18; TEMP 36.2; BMI 38.7
== END 2019-12-18 23:59 ==
LOC: WC 08:02
PROVIDERS: PCP Family Medicine; Visit Provider Family Medicine
DX: Z09 Encounter for follow-up examination after completed treatment for conditions other than malignant neoplasm (principal)
CPT/HCPCS: 99202; G0463

== ENCOUNTER 2019-12-05 13:45 | Outpatient (RCR) | payer MEDICARE, SELFPAY ==
--- NOTE | 2019-12-06 08:02 | HP.OTEVAL_ITS ---
Patient's Visit Information KANU AJ is a 74 year old F, referred to Occupational Therapy by Dr. Devora Santana DO, with a diagnosis of Radha ulcers, radha stasis, BLE lymphedema. Date of Evaluation: 12/05/19 Occupational Therapist: Nancy Paulino, EUSEBIOR/[place], CHT - Subjective This 74 year old female was seen for OT eval with dx of LE lymphedema. pt states she has had swelling in LE for about ten years. pt states she has been in and out of the wound center. pt states she had a cat bite about 8 weeks ago she was placed on antibiotic initially - pt states she stopped taking her the perscribed antibiotic due to stomach issues, pt states she is taking new antibiotic- pt states she is using cecelia wraps on her legs but does not like how hot her legs get. pt states she can not get compression socks on. - Pain BLE 8 Pain Intensity Range: 3, 8 - Lymphedema (Circumferential Measure) Mid-foot: right 26cm left 27cm Ankle: right 33cm left 34 Lower calf: right 32cm left 38cm Largest calf: right 47cm left 54 Below knee: right 49cm 44 - Lower Limb Functional Index Lower Extremity Functional Score: 19 - Goals Demonstrate a 20% reduction in edema by d/c: Yes Demonstrate adequate knowledge of self-bangaging by 1st week: Yes Demonstrate adequate knowledge skin care/prec by 2nd week: Yes Demonstrate adequate knowledge therapeutic exercises by d/c: Yes Select approp compression garment w/donning/care/wear by d/c: Yes Voice need to replace compression garment every 4-6mo by dc: Yes - Rehabilitation General Assessment: Pt demo with stage III lymphedema in LE. pt demo need for skilled OT services 1x week for 4 weeks ed. pt on mtg. of lymphedema, use of compression garments and skin care. pt demo understanding and was given handout on lymph stim exercises. Due to pts limited ability to get compression socks on therapist is rec'd compression alternatives as velcro closure devices, circaide and use of lymphapress to assist pt with mtg of LE swelling. pt and pts family agree to POC. Rehabilitation Potential: Fair - Anticipated Interventions Education re Diagnosis, Manual Lymph Drainage, Education re Life-long lymphedema Management, Education re Self-Bandaging Techniques, Education re Skin Care and Precautions, Education re Correct Donning Tech,Care&Wearing Sched Comp Garments, Caregiver Training, Home Program - Visit Plan Frequency: 1x/Week Duration: 4 Weeks TEXT: Thank you for the opportunity to evaluate your patient. For Medicare and Medicare HMO plans, please review the plan of care and approve it. It will need to be FAXED BACK to us at [phone] for Medicare purposes. Please let me know if there are questions or concerns regarding this plan of care. Physician Signature: Date:
== END 2019-12-05 19:00 | disposition home or self-care (01) ==
LOC: OT 13:45
PROVIDERS: PCP Family Medicine; Referring Provider Family Medicine; Visit Provider Family Medicine
DX: I89.0 Lymphedema, not elsewhere classified (principal); I87.2 Venous insufficiency (chronic) (peripheral)
CPT/HCPCS: 97110; 97166

== ENCOUNTER 2020-01-05 09:45 | Outpatient (RCR) | payer MEDICARE, SELFPAY ==
[2019-12-19 00:38] VITALS: BP 147/65; PULSE 124; RESP 18; TEMP 36.2
[2020-01-05 09:55] VITALS: BP 116/80; PULSE 101; RESP 16; TEMP 36.2; BMI 38.7
--- NOTE | 2020-01-05 15:45 | HP.PCM_ITS ---
(1) Venous ulcer of right lower extremity without varicose veins Status: Chronic Current Visit: Yes Code(s): I87.2 - Venous insufficiency (chronic) (peripheral); L97.919 - Non-pressure chronic ulcer of unspecified part of right lower leg with unspecified severity (2) Cat bite of left lower leg Status: Chronic Current Visit: Yes Qualifiers: Encounter type: subsequent encounter Code(s): S81.852A - Open bite, left lower leg, initial encounter; W55.01XA - Bitten by cat, initial encounter (3) Cellulitis Status: Acute Current Visit: Yes Qualifiers: Site of cellulitis: extremity Site of cellulitis of extremity: lower extremity Laterality: right Qualified Code(s): L03.115 - Cellulitis of right lower limb Code(s): L03.90 - Cellulitis, unspecified (4) Lymphedema of both lower extremities Status: Chronic Current Visit: Yes Code(s): I89.0 - Lymphedema, not elsew here classified (5) Type II diabetes mellitus Status: Chronic Current Visit: Yes Qualifiers: Diabetes mellitus exterminator helper termite insulin use: without longterm use Diabetes mellitus complication status: with skin complications Diabetes mellitus complication detail: with other skin ulcer Qualified Code(s): E11.622 - Type 2 diabetes mellitus with other skin ulcer Code(s): E11.9 - Type 2 diabetes mellitus without complications (6) Cancer of ovary Status: Chronic Current Visit: No Qualifiers: Laterality: unspecified laterality Qualified Code(s): C56.9 - Malignant neoplasm of unspecified ovary (7) Venous insufficiency Status: Chronic Current Visit: Yes History of Present Illness Date of Service: 01/05/20 Chief Complaint: Left lower extremity cat bite/cellulitis, chronic lymphedema History of Wound: Ms. 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 She was seen by her PCP Dr. Dillon Daigle and prescribed Cipro and Flagyl and was applying adaptic and silvadene to the wounds. She saw Dr. Estevez, her oncologist on 10/06/2019 who prescribed her keflex and advised that she should be seen at the wound center for follow up treatment of the cat bite wounds to her left calf. She has significant swelling of her bilateral lower extremities and chronic lymphedema which recently has become much better controlled. She denies chills, fever or otherwise feeling unwell. She has had transportation issues and was lost to care from 11/10/2019 until 01/05/2020. She had been continuing to perform wound care regimen that was previosuly prescribed with Aquacel Ag and has been trying to elevate her legs as much as possible. Her PCP increased her lasix to help manage her edema. She continues to have heavy drainage from both of her legs and developed a blister to her right lateral LE 2 weeks ago which opened and has continued to increase in size. Past Medical History Past Medical History: Chronic Problems Cat bite of left lower leg (Chronic) Venous ulcer of right lower extremity without varicose veins (Chronic) Multiple thyroid nodules (Chronic) Thyromegaly (Chronic) Bilateral lower extremity edema (Chronic) Lymphedema of both lower extremities (Chronic) Melanoma (Chronic) Asthma (Chronic) Reported, severity unknown History of DVT (deep vein thrombosis) (Chronic) History of pulmonary embolism (Chronic) Type II diabetes mellitus (Chronic) Cancer of ovary (Chronic) Anemia (Chronic) Venous insufficiency (Chronic) Poor dentition (Chronic) Surgical History: cholecystectomy, hysterectomy - For uterine fibroids, total hip arthroplasty - Right, total knee arthroplasty - Left, - - Surgery for bilateral carpal tunnel syndrome. Resection of ovarian cancer at [facility] in 2015, debridement of the abdominal wall with wound closure by Dr. Garza in June 2015 Allergies/Adverse Reactions: Allergies clindamycin Allergy (Verified 04/22/19 10:46) Other iodine Allergy (Verified 04/22/19 10:46) rash/incoherent meperidine HCl [From Demerol] Allergy (Verified 04/22/19 10:46) Nausea/vomiting/diarrhea Penicillins Allergy (Verified 04/22/19 10:46) Itching/hives adhesive tape Adverse Reaction (Verified 04/22/19 10:46) blisters BLISTERS aspirin Adverse Reaction (Verified 04/22/19 10:46) nosebleeds diazepam [From Valium] Adverse Reaction (Verified 04/22/19 10:46) Nausea/Vom/Diarrhea egg Adverse Reaction (Verified 04/22/19 10:46) Diarrhea methadone Adverse Reaction (Verified 04/22/19 10:46) Upset Stomach morphine Adverse Reaction (Verified 04/22/19 10:46) Nausea/Vom/Diarrhea sulfamethoxazole [From Bactrim] Adverse Reaction (Verified 04/22/19 10:46) Nausea/Vom/Diarrhea trimethoprim [From Bactrim] Adverse Reaction (Verified 04/22/19 10:46) Nausea/Vom/Diarrhea Home Medications: Ambulatory Orders Medication Instructions Recorded Cyanocobalamin [Vitamin B12] 1,000 mcg PO DAILY@0800 05/29/15 cycloBENZAPRine HCl [Flexeril] 10 mg PO QHS 05/29/15 metFORMIN HCl [Glucophage] 1,000 mg PO BIDCM 05/29/15 Apixaban [Eliquis] 2.5 mg PO BID 06/12/15 Furosemide [Lasix] 20 mg PO BID 07/16/15 proMETHazine tablet [Phenergan 25 mg PO 4X/DAY PRN PRN #20 tablet 07/20/15 tablet] Albuterol IH (ProAir) [Proair Hfa] 2 puff INHALATION Q6H PRN PRN 05/27/16 Ondansetron HCl [Zofran] 8 mg PO TID PRN PRN 05/27/16 Oxycodone HCl [Oxycodone HCl ER] 15 mg PO BID 12/25/16 Cholecalciferol (VIT D3) [Vitamin 2,000 unit PO DAILY 04/01/18 D3] Ascorbic Acid [C-1000 with Kelley 500 mg PO DAILY 01/12/19 Hips] DiphenhydrAMINE [Benadryl] 25 mg PO BID 01/12/19 Lorazepam [Ativan] 0.25 - 0.5 mg PO Q6H PRN PRN 01/12/19 Brimonidine Tartrate 0.2% 1 drp EACH EYE BID 04/22/19 [Brimonidine 0.2% 5Ml Bottle] Cetirizine HCl 10 mg PO DAILY 04/22/19 Difluprednate [Durezol] 1 drp EACH EYE QODAY 04/22/19 Nivolumab [Opdivo] 240 mg IV QWEEK 04/22/19 Oxycodone [Oxyir] 5 - 10 mg PO Q4H PRN PRN 04/22/19 Doxycycline 100 mg PO BID 11/24/19 Levofloxacin [Levaquin] 500 mg PO DAILY 11/24/19 - Family History Maternal No pertinent history, - - no cancer Paternal No pertinent history Lives: Alone Smoking Status: Never smoker Tobacco Use: Non-smoker Alcohol: None Drugs: None Review of Systems Constitutional: Denies: Chills, Fever, Weight Change Eyes: Denies: Pain, Vision Change HEENT: Denies: Difficulty Hearing, Difficulty Swallowing, Sinus Congestion Cardiovascular: Denies: Chest Pain, Palpitations Respiratory: Denies: Cough, Shortness of Breath Gastrointestinal: Denies: Diarrhea, Nausea, Vomiting Genitourinary: Denies: Dysuria, Hematuria Musculoskeletal: Reports: Back Pain, Joint Pain Skin: Reports: Wounds Neurological: Reports: Balance problems Psychiatric: Reports: Depression Endocrine: Denies: Heat/ Cold Intolerance, Polydipsia, Polyuria Hematologic/ Lymphatic: Denies: Easy Bruising, Easy Bleeding - Physical Exam Vital Signs Temp Pulse Resp BP 97.1 F L 101 H 16 116/80 01/05/20 09:55 01/05/20 09:55 01/05/20 09:55 01/05/20 09:55 General: Alert, Oriented x3, Cooperative, No apparent distress HEENT: Atraumatic, Normocephalic Oral: Moist Mucosa Abdomen: Obese Extremities: Edema Skin: Ulcer/ Wound Wound Measurements and Assessment WC - Nurse 1 - General Ulcer Measurement Start: 01/05/20 09:50 Freq: Status: Active Protocol: Activity Type Activity Date Activity User E-Sign Co-Sign Detail Recorded Client Recorded Date Recorded By Document 01/05/20 09:55 [id number] 01/05/20 10:04 01/05/20 09:55 Wound Center Nurse 1 [Ulcer Assessment] #5 rle -Combined with other wound No -Current Size (cm) - Length 4 -Current Size (cm) - Width 4.8 -Current Size (cm) - Depth 0.1 -Total Square Cm 19.2 -Date of Last Picture (Recall this 01/05/20 field) -Photo Taken Yes -Epithelialization None Present -Tunneling No -Undermining/Tunneling No -Circular Undermining No -Exudate Amt Medium -Exudate Type Serosanguineous -Wound Margin Distinct, Outline Attached -Granulation Amt Large (67-100%) -Granulation Quality Red -Slough/Fibrin Yes -Necrosis Amt None Present (0 %) -Necrotic Tissue Type Adherent Slough -Structure Exposed N/A -Texture (Kanwal-wound Skin Appearance) Excoriation, Localized Edema -Moisture (Kanwal-wound Skin Appearance Weeping ) -Color (Kanwal-wound Skin Appearance) Erythema -Temperature (Kanwal-wound Skin No Abnormality Appearance) (Pt Warm) -Tenderness on Palpation (Kanwal-wound No Skin Appearance) -Ulcer Cleansing Rinsed/ Irrigated with Saline -Foul Odor after Cleansing No -Anesthetic Used 4% Lidocaine Solution 4-left lateral almeida cluster -Combined with other wound No -Current Size (cm) - Length 0.4 -Current Size (cm) - Width 2 -Current Size (cm) - Depth 0.3 -Total Square Cm 0.8 -Date of Last Picture (Recall this 01/05/20 field) -Photo Taken Yes -Epithelialization None Present -Tunneling No -Undermining/Tunneling No -Circular Undermining No -Wound Margin Thickened & Rolled Under -Granulation Amt Large (67-100%) -Granulation Quality Red -Necrosis Amt Medium (34-66%) -Necrotic Tissue Type Adherent Slough -Structure Exposed N/A -Texture (Kanwal-wound Skin Appearance) Localized Edema -Moisture (Kanwal-wound Skin Appearance Weeping ) -Color (Kanwal-wound Skin Appearance) Erythema -Temperature (Kanwal-wound Skin No Abnormality Appearance) (Pt Warm) -Tenderness on Palpation (Kanwal-wound No Skin Appearance) -Ulcer Cleansing Rinsed/ Irrigated with Saline -Foul Odor after Cleansing No -Anesthetic Used 4% Lidocaine Solution 3-Left anterior almeida -Combined with other wound No -Current Size (cm) - Length 1.7 -Current Size (cm) - Width 0.9 -Current Size (cm) - Depth 0.3 -Total Square Cm 1.53 -Date of Last Picture (Recall this 01/05/20 field) -Photo Taken Yes -Epithelialization None Present -Tunneling No -Undermining/Tunneling No -Circular Undermining No -Exudate Amt Large -Exudate Type Serous -Wound Margin Thickened & Rolled Under -Granulation Amt None Present (0 %) -Granulation Quality Red -Slough/Fibrin Yes -Necrosis Amt None Present (0 %) -Necrotic Tissue Type Adherent Slough -Structure Exposed N/A -Texture (Kanwal-wound Skin Appearance) Localized Edema -Moisture (Kanwal-wound Skin Appearance Weeping ) -Color (Kanwal-wound Skin Appearance) Erythema -Temperature (Kanwal-wound Skin No Abnormality Appearance) (Pt Warm) -Tenderness on Palpation (Kanwal-wound Yes Skin Appearance) -Ulcer Cleansing Rinsed/ Irrigated with Saline -Foul Odor after Cleansing No -Anesthetic Used 4% Lidocaine Solution [Edema Assessment] -Lower Limb Edema Present Yes WC - Nurse 2 - General Ulcer CM Notes Start: 01/05/20 09:50 Freq: Status: Active Protocol: Activity Type Activity Date Activity User E-Sign Co-Sign Detail Recorded Client Recorded Date Recorded By Document 01/05/20 10:26 MW [id number] 01/05/20 10:41 MW 01/05/20 10:26 Wound Center Nurse 2 [Procedure/Treatment] #5 rle -Time 10:30 -Correct Patient Yes -Correct Side, Site, Position Yes -Correct Procedure Yes -Procedure Performed Yes -Type of Procedure Debridement -Clinical Debridement Epidermis / Dermis -Tissue Removed Epidermis -Post Debridement (cm) - Length 3.5 -Post Debridement (cm) - Width 5.0 -Post Debridement (cm) - Depth 0.1 -Total Square (Post) (cm) 17.50 -Area of Debridement (cm) - Length 3.5 -Area of Debridement (cm) - Width 5.0 -Total Square (Area) (cm) 17.50 -Tunneling No -Undermining/Tunneling No -Circular Undermining No -Wound/Ulcer Outcome Not Healed -Ulcer Cleansing Rinsed/ Irrigated with Saline -Foul Odor after Cleansing No -Bioengineered Tissue No -Bleeding Controlled with Pressure -Offloading No -Treatment Response Procedure Tolerated Well -Debridement - Open, 1st 20sq cm Yes 4-left lateral almeida cluster -Time 10:31 -Correct Patient Yes -Correct Side, Site, Position Yes -Correct Procedure Yes -Procedure Performed Yes -Type of Procedure Debridement -Clinical Debridement Subcutaneous -Tissue Removed Subcutaneous -Post Debridement (cm) - Length 1.7 -Post Debridement (cm) - Width 2.3 -Post Debridement (cm) - Depth 0.1 -Total Square (Post) (cm) 3.91 -Area of Debridement (cm) - Length 0.5 -Area of Debridement (cm) - Width 2.3 -Total Square (Area) (cm) 1.15 -Tunneling No -Undermining/Tunneling No -Circular Undermining No -Wound/Ulcer Outcome Not Healed -Ulcer Cleansing Rinsed/ Irrigated with Saline -Foul Odor after Cleansing No -Bioengineered Tissue No -Bleeding Controlled with Pressure -Offloading No -Treatment Response Procedure Tolerated Well -Debridement - Subq, 1st 20sq cm Yes 3-Left anterior almeida -Time 10:34 -Correct Patient Yes -Correct Side, Site, Position Yes -Correct Procedure Yes -Procedure Performed Yes -Type of Procedure Debridement -Clinical Debridement Subcutaneous -Tissue Removed Subcutaneous -Post Debridement (cm) - Length 1.9 -Post Debridement (cm) - Width 0.4 -Post Debridement (cm) - Depth 0.3 -Total Square (Post) (cm) 0.76 -Area of Debridement (cm) - Length 1.9 -Area of Debridement (cm) - Width 0.4 -Total Square (Area) (cm) 0.76 -Tunneling No -Undermining/Tunneling No -Circular Undermining No -Wound/Ulcer Outcome Not Healed -Ulcer Cleansing Rinsed/ Irrigated with Saline -Foul Odor after Cleansing No -Bioengineered Tissue No -Bleeding Controlled with Pressure -Offloading No -Treatment Response Procedure Tolerated Well -Debridement - Subq, 1st 20sq cm No [See Physician Procedure note for Specifics] Pain Scale: 0-10 Numeric [Pain] -Is Patient Pain Free? Yes WC - Nurse 3 - General Ulcer D/C NN Start: 01/05/20 09:50 Freq: Status: Active Protocol: Activity Type Activity Date Activity User E-Sign Co-Sign Detail Recorded Client Recorded Date Recorded By Document 01/05/20 11:06 [email or web address] [id number] 01/05/20 11:08 [email or web address] 01/05/20 11:06 Wound Care Nurse 3 [Wound Dressing] #5 rle -Ulcer Cleansing Wound Cleanser -Primary Dressing Applied NonAdherent Contact Layer -Primary Dressing Covered/Secured Dry Gauze & with Roll Gauze, Secured with Tape -Other Covering ABD 4-left lateral almeida cluster -Ulcer Cleansing Wound Cleanser -Other Dressing AQUACEL AG -Primary Dressing Covered/Secured Dry Gauze,Dry with Gauze & Roll Gauze,Secured with Tape -Other Covering ABD 3-Left anterior almeida -Ulcer Cleansing Wound Cleanser -Other Dressing AQUACEL AG -Primary Dressing Covered/Secured Dry Gauze,Dry with Gauze & Roll Gauze,Secured with Tape [Post Procedure Tolerated] -Treatment Response Procedure Tolerated Well Pain Scale: 0-10 Numeric [Pain] -Is Patient Pain Free? Yes Teaching: Wound Center [Wound Center Education] (Items with an * have Printed Materials Available- Please identify what is given to patient under the Teaching materials given to patient and caregiver Section. Dressing Your Wound -Person Taught Patient -Teaching Method Discussion, Demonstration -Response to teaching Verbalize understanding WC - Visit Discharge [Visit Discharge Information] -Discharge Condition Stable -Ambulatory Status Ambulatory -Transportation Private Auto -Medication Reconcilliation completed No & provided to patient/care provider -Clinical Summary of Care Provided Yes Psych/Mental Status: Normal Affect, Appropriate Debridement Note Post-Debridement Measurements/Treatment WC - Nurse 2 - General Ulcer CM Notes Start: 01/05/20 09:50 Freq: Status: Active Protocol: Activity Type Activity Date Activity User E-Sign Co-Sign Detail Recorded Client Recorded Date Recorded By Document 01/05/20 10:26 MW [id number] 01/05/20 10:41 MW 01/05/20 10:26 Wound Center Nurse 2 #5 rle -Time 10:30 -Correct Patient Yes -Correct Side, Site, Position Yes -Correct Procedure Yes -Procedure Performed Yes -Type of Procedure Debridement -Clinical Debridement Epidermis / Dermis -Tissue Removed Epidermis -Post Debridement (cm) - Length 3.5 -Post Debridement (cm) - Width 5.0 -Post Debridement (cm) - Depth 0.1 -Total Square (Post) (cm) 17.50 -Area of Debridement (cm) - Length 3.5 -Area of Debridement (cm) - Width 5.0 -Total Square (Area) (cm) 17.50 -Tunneling No -Undermining/Tunneling No -Circular Undermining No -Wound/Ulcer Outcome Not Healed -Ulcer Cleansing Rinsed/ Irrigated with Saline -Foul Odor after Cleansing No -Bioengineered Tissue No -Bleeding Controlled with Pressure -Offloading No -Treatment Response Procedure Tolerated Well -Debridement - Open, 1st 20sq cm Yes 4-left lateral almeida cluster -Time 10:31 -Correct Patient Yes -Correct Side, Site, Position Yes -Correct Procedure Yes -Procedure Performed Yes -Type of Procedure Debridement -Clinical Debridement Subcutaneous -Tissue Removed Subcutaneous -Post Debridement (cm) - Length 1.7 -Post Debridement (cm) - Width 2.3 -Post Debridement (cm) - Depth 0.1 -Total Square (Post) (cm) 3.91 -Area of Debridement (cm) - Length 0.5 -Area of Debridement (cm) - Width 2.3 -Total Square (Area) (cm) 1.15 -Tunneling No -Undermining/Tunneling No -Circular Undermining No -Wound/Ulcer Outcome Not Healed -Ulcer Cleansing Rinsed/ Irrigated with Saline -Foul Odor after Cleansing No -Bioengineered Tissue No -Bleeding Controlled with Pressure -Offloading No -Treatment Response Procedure Tolerated Well -Debridement - Subq, 1st 20sq cm Yes 3-Left anterior almeida -Time 10:34 -Correct Patient Yes -Correct Side, Site, Position Yes -Correct Procedure Yes -Procedure Performed Yes -Type of Procedure Debridement -Clinical Debridement Subcutaneous -Tissue Removed Subcutaneous -Post Debridement (cm) - Length 1.9 -Post Debridement (cm) - Width 0.4 -Post Debridement (cm) - Depth 0.3 -Total Square (Post) (cm) 0.76 -Area of Debridement (cm) - Length 1.9 -Area of Debridement (cm) - Width 0.4 -Total Square (Area) (cm) 0.76 -Tunneling No -Undermining/Tunneling No -Circular Undermining No -Wound/Ulcer Outcome Not Healed -Ulcer Cleansing Rinsed/ Irrigated with Saline -Foul Odor after Cleansing No -Bioengineered Tissue No -Bleeding Controlled with Pressure -Offloading No -Treatment Response Procedure Tolerated Well -Debridement - Subq, 1st 20sq cm No Pain Scale: 0-10 Numeric Is Patient Pain Free? Yes WC - Nurse 3 - General Ulcer D/C NN Start: 01/05/20 09:50 Freq: Status: Active Protocol: Activity Type Activity Date Activity User E-Sign Co-Sign Detail Recorded Client Recorded Date Recorded By Document 01/05/20 11:06 RB [id number] 01/05/20 11:08 RB 01/05/20 11:06 Wound Care Nurse 3 #5 rle -Ulcer Cleansing Wound Cleanser -Primary Dressing Applied NonAdherent Contact Layer -Primary Dressing Covered/Secured with Dry Gauze & Roll Gauze, Secured with Tape -Other Covering ABD 4-left lateral almeida cluster -Ulcer Cleansing Wound Cleanser -Other Dressing AQUACEL AG -Primary Dressing Covered/Secured with Dry Gauze,Dry Gauze & Roll Gauze,Secured with Tape -Other Covering ABD 3-Left anterior almeida -Ulcer Cleansing Wound Cleanser -Other Dressing AQUACEL AG -Primary Dressing Covered/Secured with Dry Gauze,Dry Gauze & Roll Gauze,Secured with Tape Treatment Response Procedure Tolerated Well Pain Scale: 0-10 Numeric Is Patient Pain Free? Yes Teaching: Wound Center Dressing Your Wound -Person Taught Patient -Teaching Method Discussion, Demonstration -Response to teaching Verbalize understanding WC - Visit Discharge Discharge Condition Stable Ambulatory Status Ambulatory Transportation Private Auto Medication Reconcilliation completed & No provided to patient/care provider Clinical Summary of Care Provided Yes Wound debrided: right lower extremity Laterality: Right Type of Debridement: Selective debridement Anesthesia Used: 4% Lidocaine Solution, 5% Lidocaine Gel Depth: Down to and including healthy tissue, in the subcutaneous layer Percentage of wound debrided: 100 Instrument Used: - - gauze Tissue Removed: Yellow slough, devitalized tissue Severity: Fat Layer Exposed Amount of bleeding with debridement: Mild Bleeding Controlled with: Compression and gauze Patient tolerated procedure well - Additional Wound Wound debrided: left lateral almeida cluster Laterality: Left Type of Debridement: Excisional debridement Anesthesia Used: 4% Lidocaine Solution, 5% Lidocaine Gel Depth: Down to and including healthy tissue, in the subcutaneous layer Percentage of wound debrided: 100 Instrument Used: 5mm curette Severity: Fat Layer Exposed Amount of bleeding with debridement: Mild Bleeding Controlled with: Compression and gauze Patient tolerated procedure: Patient tolerated procedure well - Additional Wound Wound debrided: left anterior almeida Laterality: Left Type of Debridement: Excisional debridement Anesthesia Used: 4% Lidocaine Solution, 5% Lidocaine Gel Depth: Down to and including healthy tissue, in the subcutaneous layer Percentage of wound debrided: 100 Instrument Used: 5mm curette Tissue Removed: Yellow slough, devitalized tissue Severity: Fat Layer Exposed Amount of bleeding with debridement: Mild Bleeding Controlled with: Compression and gauze Patient tolerated procedure: Patient tolerated procedure well Assessment/Plan Active Problems Cat bite of left lower leg (Chronic) Venous ulcer of right lower extremity without varicose veins (Chronic) Cellulitis (Acute) Lymphedema of both lower extremities (Chronic) Type II diabetes mellitus (Chronic) Venous insufficiency (Chronic) Assessment: Left lower extremity cellulitis and puncture wound due to cat scratch in a patient with diabetes mellitus and bilateral lower extremity edema. left lower extremity cellulitis (mild). right lower extremity venous ulcer Plan: Cindy's wounds and left lower leg were evaluated and debrided today. Her right LE ulcer was selectively debrided. Will have her continue to use adaptic and Aquacel Ag to her wounds and cover with gauze and/or Kerlix. She was encouraged to elevate lower extremities when seated in bed. Optimal blood sugar control recommended. Increased protein intake encouraged. Call with any increased pain, drainage, odor, erythema or edema. F/U in 2 weeks for wound care visit.
== END 2020-01-17 23:59 ==
LOC: WC 09:45
PROVIDERS: PCP Family Medicine; Visit Provider Family Medicine
DX: S81.832A Puncture wound without foreign body, left lower leg, initial encounter (principal); L03.116 Cellulitis of left lower limb; W55.01XA Bitten by cat, initial encounter; Y93.9 Activity, unspecified; Y92.9 Unspecified place or not applicable; Y99.9 Unspecified external cause status; I87.2 Venous insufficiency (chronic) (peripheral); E11.622 Type 2 diabetes mellitus with other skin ulcer; L97.912 Non-pressure chronic ulcer of unspecified part of right lower leg with fat layer exposed; I89.0 Lymphedema, not elsewhere classified; J45.909 Unspecified asthma, uncomplicated; D64.9 Anemia, unspecified; Z79.01 Long term (current) use of anticoagulants; Z86.718 Personal history of other venous thrombosis and embolism; Z86.711 Personal history of pulmonary embolism; Z79.84 Long term (current) use of oral hypoglycemic drugs; Z79.899 Other long term (current) drug therapy
CPT/HCPCS: 11042; 97597; 99213; G0463

== ENCOUNTER 2020-01-13 16:04 | Inpatient (IN) | payer MEDICARE, SELFPAY ==
[2020-01-13] VITALS (7 sets, daily range): BP systolic 102–136; BP diastolic 53–69; PULSE 80–99; RESP 15–18; TEMP 36.1–37; O2SAT 91–98; BMI 39.6; BMI 43.1
--- NOTE | 2020-01-13 16:26 | EKG12_ITS ---
Test Reason : EDEMA Blood Pressure : / mmHG Vent. Rate : 097 BPM Atrial Rate : 090 BPM P-R Int : 152 ms QRS Dur : 088 ms QT Int : 398 ms P-R-T Axes : 079 -32 062 degrees QTc Int : 505 ms Sinus rhythm with Premature atrial complexes Right bundle branch block Left axis deviation Abnormal ECG Confirmed by TERRI BEAR, DEL ([id number]), social media editor FELY FLORES ([id number]) on 01/18/2020 1:44:50 PM Referred By: CHRISTOPH Confirmed By:MARIELA MURRAY MD
[2020-01-13] MEDS: oxyCODONE 5 MG Tablet 10 MG PO ×2 (16:57→23:50)
[2020-01-13 17:24] LABS: Absolute Lymphocyte Count 0.34 X10^3/uL (0.83-4.51); Absolute Neutrophil Count 9.7 X10^3/uL (2.0-7.7); Basophil# 0.01 X10^3/uL; Basophil% 0.1 % (0-1); Eosinophil# 0.03 X10^3/uL; Eosinophils% 0.3 % (0-5); Hematocrit 32.9 % (37-47); Hemoglobin 9.4 g/dL (12.0-15.0); Lymphocyte # 0.34 X10^3/ul (4.0); Lymphocyte % 3.2 % (19-41); Mean Corp Hgb Conc 28.6 g/dL (32-36); Mean Corpuscular Hgb 25.7 pg (27.0-32.0); Mean Corpuscular Volume 89.9 fL (81-99); Mean Platelet Vol. 9.5 fl (6.2-12.0); Monocyte# 0.57 X10^3/uL; Monocyte% 5.3 % (0-10); NRBC Flagged by Analyzer 0 % (0-5); Neutrophil # 9.67 X10^3/uL (2.7-7.7); Neutrophil % 89.9 % (47-70); POSITIVE DIFFERENTIAL YES; Platelet Count 376 K/mm3 (150-450); RBC Distribution Width CV 18.6 % (11.6-14.6); RBC Distribution Width SD 61.3 fl (35.1-43.9); Red Blood Count 3.66 M/mm3 (4.2-5.4); White Blood Count 10.8 K/mm3 (4.4-11.0)
[2020-01-13 17:28] LABS: Differential Indicated SCAN CRITERIA MET
[2020-01-13 17:33] LABS: International Normalized Ratio 1.4; Prothrombin Time (Protime)PT. 16.4 SECONDS (11.7-14.9)
[2020-01-13 17:34] LABS: Partial Thromboplast Time 38.8 Seconds (24.1-36.2)
[2020-01-13 17:41] LABS: ALB/GLOB Ratio 0.5 RATIO (0.9-2.4); AST(SGOT) 14 U/L (15-37); Alanine Aminotransfer ALT/SGPT 19 U/L (13-56); Albumin, Serum 2.4 g/dL (3.2-5.0); Alkaline Phosphatase 97 U/L (45-117); Anion Gap 6 (5-15); BUN 51 mg/dL (7-18); BUN/Creat Ratio 35.9 RATIO (10-20); Calcium,Total 9.2 mg/dL (8.5-10.1); Chloride 103 mmol/L (98-107); Creatinine, Serum 1.42 mg/dL (0.55-1.02); EST Glomerular Filtration Rate 38 mL/min (>60); Est Glom Filt Rate - Afr Amer 47 mL/min (>60); Estimated Creatinine Clearance 48.78 ml/min; Globulin 4.7 g/dL (2.2-4.2); Glucose 81 mg/dL (74-106); Potassium 3.4 mmol/L (3.5-5.1); Protein, Total 7.1 g/dL (6.4-8.2); Sodium Level 140 mmol/L (136-145)
[2020-01-13 17:46] LABS: Lactic Acid 1.7 mmol/L (0.4-1.9)
--- NOTE | 2020-01-13 18:01 | ED.DCSUM_ITS ---
- ER Visit Summary Date of Service: 01/13/20 Chief Complaint: Cellulitis and bilateral lower extremity edema History of Present Illness: The patient is a [address] Chente Daigle and the wound clinic. She reports that she has chronic bilateral lower extremity edema. She was started on Lasix 80 mg twice a day 1 week ago and reports that the swelling is gotten much better in her thighs, but essentially worse below her knees. She had been on Keflex for 20 days and the ulcer to her right leg was not healing. She is been on doxycycline for the past 10 days and reports that over the past 24 hours the area has become more red and painful. Patient denies any fever or chills. She has been nauseated. She reports that she has a headache that is 3-10 in severity. She does have a history of similar headaches. Physical Examination: Vitals: Stable. Afebrile. General: Well-nourished and well-developed. Head: Normocephalic atraumatic. Neck: Supple, no lymphadenopathy. No JVD. Nontender. Cardiovascular: Regular rate and rhythm. No murmurs. Respiratory: No respiratory distress. Clear to auscultation bilaterally. Abdominal: Soft, nontender, nondistended, normal bowel sounds. No guarding, rebound, or peritoneal signs. Back: Nontender. Extremities: 3+ pitting edema lower extremities bilaterally. She is weeping from her left leg. She has an approximately 6 cm superficial ulcer on the proximal lateral right leg that has surrounding erythema. Moderately tender to palpation. There is no crepitus. Skin: Normal color, no rash. Neurologic: Alert and oriented ?3. Cranial nerves II through XII are intact. Normal strength and sensation. Psych: Normal affect. Test Results: EKG shows an undetermined rhythm at a rate of 97 with PVCs and nonspecific ST changes. It is changed from December of last year. Lactate is 1.7. LFTs show an albumin 2.4, globulin 4.7, and AST 14. Chem-7 shows a potassium of 3.4, BUN of 51, creatinine 1.42. CBC shows an H&H 9.4 and 32.9, segmented for the 90, lymphocytes of 3. Emergency Department Course and Treatment: Patient was given oxycodone p.o. and vancomycin IV. She is resting comfortably. Treatment Plan: Patient was discussed Dr. Edwards. She will be admitted the hospital for further evaluation and treatment. Disposition: Admitted in improved condition. Impression: 1. Anasarca. 2. Chronic renal insufficiency. 3. Ulcer right leg. 4. Cellulitis with failed outpatient treatment. This note was generated with [employer] dictation software. It may contain incorrect words, spelling, and punctuation that were not noted in review of the chart prior to signing ED Disposition - Plan for ED Patient: Referrals: Chente Daigle MD [Primary Care Provider] -
--- NOTE | 2020-01-13 18:04 | NURSING ---
PCU TERELETSKY ANASARCA, CELLULITIS
[2020-01-13 18:15] LABS: Platelet Estimate ADEQUATE (ADEQ)
[2020-01-13 18:16] LABS: Anisocytosis RARE; Red Cell Morphology N CHROM NORMAL (NORM C&C)
--- NOTE | 2020-01-13 18:32 | PCM.HP.STD ---
Problem List (1) Anasarca Status: Acute (2) Cellulitis of right lower leg Status: Acute History of Present Illness Date of Admission: 01/13/20 Chief Complaint: Anasarca bilateral lower extremities, cellulitis of the right lower leg The patient is a 74 year old F was seen in the emergency room at [facility] with a chief complaint of severe edema of the legs bilaterally along with ulceration and redness of the right lower leg as well as some redness of the left lower leg. Patient has been seen at the wound care center chronically for the nonhealing ulcer to her right lower leg and has been placed on antibiotics for a number of weeks without improvement of the area. Patient states that she has been having swelling in both legs for quite some time-the left leg for approximately 4 to 5 years, the right leg for several months, patient denies any history of CHF or heart disease. Patient denies any shortness of breath or chest pain. Patient denies any fevers or chills, she states that there is been no significant drainage from the ulceration on her right lower leg. Work-up in the emergency room included labs which showed a normal CBC except for a low hemoglobin at 9.4, INR was 1.4, chemistry panel was remarkable for potassium of 3.4, creatinine of 1.42, BUN of 51, and an albumin of 2.4. Patient's lactic acid was normal It is my opinion the majority of the patient's redness of both lower legs is from anasarca, I feel she needs to be admitted and undergo IV diuresis with continuous Lasix infusion due to her failure of resolution of the edema with oral Lasix at home. I think there may be an element of cellulitis to the right lower leg around a superficial ulcerated area that is chronic, I do not think that the majority of the lower leg redness however is due to cellulitis. Patient will be admitted to PCU, placed on IV Lasix drip, will be given supplemental oral magnesium and potassium, she may need to see the wound care nurse on Wednesday, I will place her on IV vancomycin for coverage of staph since she failed outpatient treatment with Keflex and doxycycline. I do not believe this patient is septic. Past Medical History Past Medical History (Chronic Problems): Chronic Problems Venous ulcer of right lower extremity without varicose veins (Chronic) Multiple thyroid nodules (Chronic) Thyromegaly (Chronic) Bilateral lower extremity edema (Chronic) Lymphedema of both lower extremities (Chronic) Melanoma (Chronic) Asthma (Chronic) Reported, severity unknown History of DVT (deep vein thrombosis) (Chronic) History of pulmonary embolism (Chronic) Type II diabetes mellitus (Chronic) Cancer of ovary (Chronic) Anemia (Chronic) Venous insufficiency (Chronic) Poor dentition (Chronic) Allergies clindamycin Allergy (Verified 01/13/20 16:17) Other iodine Allergy (Verified 01/13/20 16:17) rash/incoherent meperidine HCl [From Demerol] Allergy (Verified 01/13/20 16:17) Nausea/vomiting/diarrhea Penicillins Allergy (Verified 01/13/20 16:17) Itching/hives adhesive tape Adverse Reaction (Verified 01/13/20 16:17) blisters BLISTERS aspirin Adverse Reaction (Verified 01/13/20 16:17) nosebleeds diazepam [From Valium] Adverse Reaction (Verified 01/13/20 16:17) Nausea/Vom/Diarrhea egg Adverse Reaction (Verified 01/13/20 16:17) Diarrhea levofloxacin [From Levaquin] Adverse Reaction (Verified 01/13/20 16:17) Vomiting methadone Adverse Reaction (Verified 01/13/20 16:17) Upset Stomach morphine Adverse Reaction (Verified 01/13/20 16:17) Nausea/Vom/Diarrhea sulfamethoxazole [From Bactrim] Adverse Reaction (Verified 01/13/20 16:17) Nausea/Vom/Diarrhea trimethoprim [From Bactrim] Adverse Reaction (Verified 01/13/20 16:17) Nausea/Vom/Diarrhea Home Medications: Ambulatory Orders Medication Instructions Recorded Cyanocobalamin [Vitamin B12] 1,000 mcg PO DAILY@0800 05/29/15 cycloBENZAPRine HCl [Flexeril] 10 mg PO QHS 05/29/15 metFORMIN HCl [Glucophage] 1,000 mg PO BIDCM 05/29/15 Apixaban [Eliquis] 2.5 mg PO BID 06/12/15 Furosemide [Lasix] 80 mg PO BID 07/16/15 proMETHazine tablet [Phenergan 25 mg PO 4X/DAY PRN PRN #20 tablet 07/20/15 tablet] Albuterol IH (ProAir) [Proair Hfa] 2 puff INHALATION Q6H PRN PRN 05/27/16 Ondansetron HCl [Zofran] 8 mg PO TID PRN PRN 05/27/16 Oxycodone HCl [Oxycodone HCl ER] 10 mg PO TID 12/25/16 Cholecalciferol (VIT D3) [Vitamin 2,000 unit PO DAILY 04/01/18 D3] Ascorbic Acid [C-1000 with Kelley 500 mg PO DAILY 01/12/19 Hips] DiphenhydrAMINE [Benadryl] 25 mg PO BID 01/12/19 Lorazepam [Ativan] 0.25 - 0.5 mg PO Q6H PRN PRN 01/12/19 Brimonidine Tartrate 0.2% 1 drp EACH EYE BID 04/22/19 [Brimonidine 0.2% 5Ml Bottle] Cetirizine HCl 10 mg PO DAILY 04/22/19 Difluprednate [Durezol] 1 drp EACH EYE QODAY 04/22/19 Nivolumab [Opdivo] 240 mg IV .COMPLEX 04/22/19 Oxycodone [Oxyir] 5 mg PO PRN PRN 04/22/19 Doxycycline 100 mg PO BID 11/24/19 Surgical History: cholecystectomy, hysterectomy - For uterine fibroids, total hip arthroplasty - Right, total knee arthroplasty - Left, - - Surgery for bilateral carpal tunnel syndrome. Resection of ovarian cancer at [facility] in 2015, debridement of the abdominal wall with wound closure by Dr. 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 History: ovarian cancer, uterine fibroids Lives: Alone Smoking Status: Never smoker Tobacco Use: Non-smoker Alcohol: None Drugs: None - *Family History Maternal History Items: No pertinent history, - - no cancer Paternal History Items: No pertinent history Review of Systems Constitutional: Denies: Anorexia, Chills, Fever, Night Sweats, Malaise, Weakness, Weight Change, Fatigue Eyes: Denies: Cataracts, Conjunctivae Inflammation, Double vision, Drainage HEENT: Denies: Difficulty Swallowing, Dysphasia, Ear Pain, Hearing Changes, Nasal bleeding, Nasal Congestion, Post Nasal Drip Cardiovascular: Denies: Chest Pain, Claudication, Chest Pressure, Chest Tightness, Edema, Heaviness, Orthopnea, Palpitations Respiratory: Denies: Cough, Hemoptysis, Pleuritic Pain, Shortness of Breath, Shortness of breath at rest, Shortness of breath upon exertion, Sputum production Gastrointestinal: Denies: Abdominal Pain, Constipation, Diarrhea, Hematemesis, Hematochezia, Nausea, Melena, Vomiting Genitourinary: Denies: Dysuria, Frequency, Hematuria, Hesitancy, Urgency Musculoskeletal: Denies: Back Pain, Foot Pain, Hand Pain, Joint Pain, Joint stiffness, Joint swelling, Joint Tenderness, Leg Pain Skin: Reports: Skin Changes - Redness and swelling over her lower extremities times unknown length of time, Wounds - Chronic right lower leg wound. Denies: Dryness, Pruritis, Rash Neurological: Denies: Blurred vision, Double vision, Slurred speech, Difficulty swallowing, Focal weakness, Headaches, Numbness, Tingling Psychiatric: Reports: Anxiety. Denies: Depression, Homicidal Ideations, Suicidal Ideations Endocrine: Reports: Hx of Irradiation - Radiation for ovarian cancer x2. Denies: Change in Body Habitus, Heat/ Cold Intolerance, Polydipsia, Polyuria Hematologic/ Lymphatic: Reports: Anemia - Chronic anemia, Hx of blood clot - History of PE, - - History of ovarian cancer. Denies: Adenopathy, Easy Bruising, Easy Bleeding, Petechiae, Purpura VTE Information - Inpt Only VTE Present on Admission: No VTE Mechan Device Prophylaxis: None VTE Pharm Prophylaxis ordered?: No Reason prophylaxis not ordered:: Treatment Not Indicated - Patient on chronic Eliquis Patient Problems: Active and Suspected Problems Anasarca (Acute) Cellulitis of right lower leg (Acute) - Physical Exam Vitals/I&O's: Vital Signs Temp Pulse Resp BP Pulse Ox 98.6 F 86 15 130/66 H 98 01/13/20 18:00 01/13/20 18:00 01/13/20 18:00 01/13/20 18:00 01/13/20 18:00 Oxygen Delivery Method Room Air Weight: 88.904 kg Body Mass Index (BMI) 39.6 Finger Stick Blood Glucose 210 General: Alert, Oriented x3, Cooperative, No apparent distress, Well developed, Well nourished HEENT: Atraumatic, PERRLA, EOMI, Normocephalic Oral: Moist Mucosa Neck: Supple, No JVD, Negative Carotid Bruits, Trachea Midline Lungs: Clear to auscultation, Normal air movement, No rhonchi, No wheeze, No rales Cardiovascular: Regular rate, Regular Rhythm, Normal S1, Normal S2, No murmurs, - - Occasional ectopic activity is noted Abdomen: Bowel Sounds Present, Soft, Non Tender, Non-Distended, Obese, - - Presence of a colostomy is noted Extremities: No clubbing, No cyanosis, Capillary Refill Less than 3 Seconds, Edema - Severe lower leg edema is noted bilaterally extending up into the knee areas, there is also associated redness of the skin over both lower legs more so on the right Skin: Ulcer/ Wound - Superficial ulceration measuring approximately 4 cm in length by 3 cm in diameter is noted over the right lower leg on its anterior lateral aspect, Rash Present - Both lower extremities have associated widespread redness, more so on the right Musculoskeletal: No Tenderness to Palpation of Joints or Extremities Neurological: Cranial nerves II-XII grossly intact, Neuro grossly intact, Sensory exam intact to light touch and pain, Coordination normal Psych/Mental Status: Normal Affect, Appropriate, Alert and oriented to time, place, person, mood and affect Laboratory Results 01/13/20 17:00: WBC 10.8, RBC 3.66 L, Hgb 9.4 L, Hct 32.9 L, MCV 89.9, MCH 25.7 L, MCHC 28.6 L, RDW Std Deviation 61.3 H, RDW Coeff of Zuri 18.6 H, Plt Count 376, MPV 9.5, Immature Gran % (Auto) 1.200 H, Neut % (Auto) 89.9 H, Lymph % (Auto) 3.2 L, [place] % (Auto) 5.3, Eos % (Auto) 0.3, Baso % (Auto) 0.1, Absolute Neuts (auto) 9.7 H, Absolute Lymphs (auto) 0.34 L, Nucleated RBC % 0, Differential Comment SEE COMMENT, Platelet Estimate ADEQUATE, RBC Morphology N CHROM, Anisocytosis RARE 01/13/20 17:00: PT 16.4 H, INR 1.4, APTT 38.8 H 01/13/20 17:00: Sodium 140, Potassium 3.4 L, Chloride 103, Carbon Dioxide 31.0, Anion Gap 6, BUN 51 H, Creatinine 1.42 H, Estim Creat Clear Calc 48.78, Est GFR (MDRD) Af Amer 47 L, Est GFR (MDRD) Non-Af 38 L, BUN/Creatinine Ratio 35.9 H, Glucose 81, Calcium 9.2, Total Bilirubin 0.40, AST 14 L, ALT 19, Alkaline Phosphatase 97, Total Protein 7.1, Albumin 2.4 L, Globulin 4.7 H, Albumin/Globulin Ratio 0.5 L 01/13/20 17:00: Lactic Acid 1.7 Current Medications Sodium Chloride () 250 mls @ 15 mls/hr IV .[id number] PRN PRN Reason: Saline Flush Vancomycin HCl 1,250 mg/ (Sodium Chloride) 275 mls @ 167 mls/hr IV X1 ONE Stop: 01/13/20 18:53 Last Admin: 01/13/20 17:23 Dose: 167 mls/hr Documented by: Assessment/Plan All Active Problems Anasarca (Acute) Cellulitis of right lower leg (Acute) Cellulitis (Acute) Allergic drug reaction (Resolved) Redness of the lower extremities (Acute) Acute exacerbation of extrinsic asthma (Resolved) Abdominal wall ulcer (Resolved) Acute renal insufficiency (Resolved) CSD (cat scratch disease) (Resolved) Cellulitis of left lower extremity (Resolved) Cellulitis of right lower extremity (Resolved) Colitis (Resolved) Dehydration (Resolved) Dental infection (Resolved) Left leg cellulitis (Resolved) Sepsis (Resolved) Sepsis (Resolved) Severe sepsis (Resolved) Surgical wound dehiscence (Resolved) Ulcer of right lower extremity with fat layer exposed (Resolved) #1 anasarca to the lower legs, etiology unclear probably venous stasis in nature versus lymphatic interruption from radiation treatment to the pelvis for ovarian cancer-patient will need to be admitted for IV continuous infusion of Lasix, her electrolytes will be monitored, she will be given supplemental KCl and magnesium. Chest x-ray was ordered to make sure the patient has no element of congestive heart failure-she states she is never had any history of heart problems. #2 cellulitis of the right lower leg with superficial venous stasis ulceration-patient will be maintained on IV vancomycin, I would like to wrap the patient's legs tomorrow with Smith wrap to see if this improves the healing of this ulceration. Patient will probably need to see the wound care nurse on Wednesday #3 type 2 diabetes-patient's blood sugars were monitored and sliding scale insulin will be used to control the blood sugars, she will remain on metformin for now depending on her renal function. #4 stage III chronic kidney disease secondary to type 2 diabetes-renal function will be monitored #5 chronic anticoagulation with Eliquis due to past history of PE #6 chronic anemia-etiology unclear, I will obtain an iron and TIBC tomorrow #7 obesity #8 history of ovarian cancer with resultant colostomy #9 venous insufficiency to the legs #10 chronic anxiety #11 chronic pain-patient is currently taking OxyContin as well as OxyIR #12 hypokalemia-supplemental potassium was given to the patient, she will be on potassium supplementation because of her Lasix drip. Inpatient E&M: 26911 Init Hosp L3
--- NOTE | 2020-01-13 18:52 | ECHOD_ITS ---
Reason For Study: PALPITATIONS Procedure This was a 2D Doppler, Color Flow transthoracic echocardiogram. Exam performed portable in patient room. Left Ventricle Normal LV size. Mild concentric left ventricular hypertrophy. Left ventricular systolic function is normal. The estimated ejection fraction is 60 %. Stage 1 diastolic dysfunction. No regional wall motion abnormalities noted. Right Ventricle Normal RV size. Normal systolic function. Atria Normal left atrium. Normal right atrium. Mitral Valve Normal mitral valve. Tricuspid Valve Normal tricuspid valve. Mild tricuspid valve insufficiency. Pulmonary artery systolic pressure is 24 mmHg. Aortic Valve Trisinus/trileaflet aortic valve. Mild focal aortic valve calcification. Pulmonic Valve Normal pulmonic valve. Great Vessels Normal aortic root. The pulmonary artery is normal size. Normal inferior vena cava. Pericardium/Pleural No pericardial effusion. MMode/2D Measurements & Calculations LVIDd: 3.8 cm IVSd: 1.3 cm Ao root diam: 3.2 cm LVIDs: 2.6 cm LVPWd: 1.3 cm RVDd: 2.9 cm FS: 31.1 % LAV(MOD-bp): 44.0 ml LVAd ap4: 28.8 cm2 SV(MOD-sp4): 55.2 ml LAV(MOD-bp) Indexed: 24.1 ml/m2 EDV(MOD-sp4): 91.2 ml LAV(MOD-sp2): 35.1 ml EDV(sp4-el): 94.6 ml LAV(MOD-sp4): 49.7 ml LVAs ap4: 16.8 cm2 ESV(MOD-sp4): 36.1 ml ESV(sp4-el): 36.7 ml EF(MOD-sp4): 60.5 % EF(sp4-el): 61.2 % SV(sp4-el): 57.9 ml LA A4 area: 19.6 cm2 LA dimension(2D): 3.4 cm RA A4 area: 15.2 cm2 Time Measurements MV dec time: 0.18 sec Doppler Measurements & Calculations MV E max eliu: 92.1 cm/sec Lat Peak E' Eliu: 11.2 cm/sec Med Peak E' Eliu: 5.6 cm/sec MV A max eliu: 115.3 cm/sec E/E' lat: 8.2 E/E' med: 16.4 MV E/A: 0.80 Ao V2 max: 174.4 cm/sec LV V1 max: 112.9 cm/sec PA V2 max: 125.0 cm/sec Ao max P.2 mmHg LV V1 max P.1 mmHg TR max eliu: 224.5 cm/sec TR max P.2 mmHg Interpretation Summary Normal LV size. Mild concentric left ventricular hypertrophy. Left ventricular systolic function is normal. The estimated ejection fraction is 60 %. Stage 1 diastolic dysfunction. Mild tricuspid valve insufficiency. Pulmonary artery systolic pressure is 24 mmHg. Ordering Physician: Camilo Edwards Referring Physician: OLGA LIDIA MITTAL Performed By: Aretha Noble RDCS
--- NOTE | 2020-01-13 18:52 | RAD_ITS ---
STUDY: X-RAY CHEST REASON FOR EXAM: Female, 74 years old. bilateral leg edema, cellulitis TECHNIQUE: Single AP portable view of the chest. 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 The lungs are clear and expanded. The left hemidiaphragm is elevated. Normal size heart. Normal mediastinum and demetrius. Normal visualized pulmonary arteries. Normal visualized aortic arch and descending thoracic aorta. Normal visualized thoracic spine. There are degenerative changes of the right shoulder joint. Tendon anchors are seen in the left humeral head. There is no demonstrated abnormality of the visualized soft tissue structures of the upper abdomen. RAD/Chest 1 View (Portable) IMPRESSION: Elevated left hemidiaphragm. No acute cardiopulmonary disease process is seen. Chest findings are stable in the interval. Electronically Signed: Miguel Angel Gooden MD at 21:10 EDT , Service support ,
--- NOTE | 2020-01-13 19:02 | PCM.RX.CS ---
Consult Pharmacy has been consulted to manage selected antiobiotic: Vancomycin Type of Consult: New start Suspected Infection: Skin/Soft tissue Prior Doses of Antibiotics Received/Current Regimen: Medications Discontinued Medications Vancomycin HCl 1,250 mg/ (Sodium Chloride) 275 mls @ 167 mls/hr IV X1 ONE Stop: 01/13/20 18:53 Last Admin: 01/13/20 17:23 Dose: 167 mls/hr Documented by: Labs: Sodium 140 mmol/L (136-145) 01/13/20 17:00 Potassium 3.4 mmol/L (3.5-5.1) L 01/13/20 17:00 Chloride 103 mmol/L (98-107) 01/13/20 17:00 Carbon Dioxide 31.0 mmol/L (21.0-32.0) 01/13/20 17:00 Anion Gap 6 (5-15) 01/13/20 17:00 BUN 51 mg/dL (7-18) H 01/13/20 17:00 Creatinine 1.42 mg/dL (0.55-1.02) H 01/13/20 17:00 Est GFR (MDRD) Af Amer 47 mL/min (>60) L 01/13/20 17:00 Est GFR (MDRD) Non-Af 38 mL/min (>60) L 01/13/20 17:00 BUN/Creatinine Ratio 35.9 RATIO (10-20) H 01/13/20 17:00 Glucose 81 mg/dL (74-106) 01/13/20 17:00 Weight used for dosin kg Estimated Creatinine Clearance: 25 mL/min Pharmacy Plan for Drug Dosinmg IV x1 given in ED, continue with 750mg IV q24h per policy. Pharmacy Service will continue to monitor and adjust dosing as required. Follow-Up Labs: Trough Vancomycin - 01/14 @ 1730
[2020-01-13] MEDS: Furosemide 500 MG in Empty Viaflex 50 mL 1 EACH CONT INF (20:16)
[2020-01-13] MEDS: oxyCODONE HCl Cr 10 MG Tablet PO (21:52)
[2020-01-13] MEDS: BRIMONIDINE 0.2% 5ML BOTTLE 1 DRP EACH EYE (21:55)
[2020-01-13] MEDS: APIXABAN 2.5 MG TABLET PO (21:55)
[2020-01-13] MEDS: cycloBENZAPRine HCl 10 MG Tablet PO (21:55)
[2020-01-13] MEDS: Magnesium Chloride 64 MG Delay Rel.Tablet 128 MG PO (21:55)
[2020-01-13 22:20] LABS: Bedside Glucose 84 mg/dL (70-110)
[2020-01-14] VITALS (9 sets, daily range): BP systolic 110–125; BP diastolic 48–56; PULSE 82–107; RESP 16–18; TEMP 36.5–37; O2SAT 94–100
[2020-01-14] MEDS: oxyCODONE 5 MG Tablet 10 MG PO ×3 (04:14→20:02)
[2020-01-14] MEDS: oxyCODONE HCl Cr 10 MG Tablet PO ×3 (06:35→22:10)
[2020-01-14 06:36] LABS: Anion Gap 4 (5-15); BUN 45 mg/dL (7-18); BUN/Creat Ratio 37.5 RATIO (10-20); Calcium,Total 8.7 mg/dL (8.5-10.1); Chloride 102 mmol/L (98-107); EST Glomerular Filtration Rate 47 mL/min (>60); Est Glom Filt Rate - Afr Amer 56 mL/min (>60); Estimated Creatinine Clearance 62.92 ml/min; Glucose 74 mg/dL (74-106); Iron 32 ug/dL (50-170); Iron Binding Capacity,Total 180 ug/dL (250-450); Magnesium 1.8 mg/dL (1.6-2.6); PERCENT IRON SATURATION 17.8 % (15.0-55.0); Potassium 3.7 mmol/L (3.5-5.1); Sodium Level 140 mmol/L (136-145)
[2020-01-14] MEDS: Ondansetron 4 MG/2 ML Vial IV (06:48)
[2020-01-14 08:00] LABS: Bedside Glucose 53 mg/dL (70-110)
[2020-01-14 08:36] LABS: Bedside Glucose 56 mg/dL (70-110)
[2020-01-14] MEDS: APIXABAN 2.5 MG TABLET PO ×2 (08:48→22:00)
[2020-01-14] MEDS: Magnesium Chloride 64 MG Delay Rel.Tablet 128 MG PO ×2 (08:48→21:59)
[2020-01-14] MEDS: BRIMONIDINE 0.2% 5ML BOTTLE 1 DRP EACH EYE ×2 (08:48→21:58)
[2020-01-14 08:56] LABS: Bedside Glucose 78 mg/dL (70-110)
[2020-01-14] MEDS: Sodium Ferric Gluconat 250 MG in 0.9% Normal Saline 250 ML 135 MG IV (10:32)
--- NOTE | 2020-01-14 12:04 | PN_ITS ---
Patient Problems: Active and Suspected Problems Anasarca (Acute) Cellulitis of right lower leg (Acute) Subjective: Patient was seen and examined today, it appears as though the IV diuresis is working-her legs are less swollen and the skin is beginning to wrinkle. The superficial open ulceration of her right lower leg appears to look better also, there is less generalized redness of both lower legs noted. Patient's creatinine is improved since her diuresis, I will recheck her labs tomorrow. Objective: General: Alert, Oriented x3, Cooperative, No apparent distress, Well developed, Well nourished HEENT: Atraumatic, PERRLA, EOMI, Normocephalic Oral: Moist Mucosa Neck: Supple, No JVD, Negative Carotid Bruits, Trachea Midline Lungs: Clear to auscultation, Normal air movement, No rhonchi, No wheeze, No rales Cardiovascular: Regular rate, Regular Rhythm, Normal S1, Normal S2, No murmurs, - - Occasional ectopic activity is noted Abdomen: Bowel Sounds Present, Soft, Non Tender, Non-Distended, Obese, - - Presence of a colostomy is noted Extremities: No clubbing, No cyanosis, Capillary Refill Less than 3 Seconds, Edema - Severe lower leg edema is noted bilaterally extending up into the knee areas, there is also associated redness of the skin over both lower legs more so on the right-this edema is improved today as compared with yesterday. Skin: Ulcer/ Wound - Superficial ulceration measuring approximately 4 cm in length by 3 cm in diameter is noted over the right lower leg on its anterior l ateral aspect, Rash Present - Both lower extremities have associated widespread redness, more so on the right-this is improved greatly since yesterday Musculoskeletal: No Tenderness to Palpation of Joints or Extremities Neurological: Cranial nerves II-XII grossly intact, Neuro grossly intact, Sensory exam intact to light touch and pain, Coordination normal Psych/Mental Status: Normal Affect, Appropriate, Alert and oriented to time, place, person, mood and affect - Physical Exam Vitals/I&O's: Vital Signs Temp Pulse Resp BP Pulse Ox 98.5 F 92 18 115/51 L 100 01/14/20 08:05 01/14/20 08:05 01/14/20 08:05 01/14/20 08:05 01/14/20 08:05 Oxygen Delivery Method Room Air Weight: 91.943 kg Body Mass Index (BMI) 43.1 Finger Stick Blood Glucose 210 Intake and Output for Last 24 Hours 01/12/20 01/13/20 01/14/20 23:59 23:59 23:59 Intake Total 275 / 475 828.73 / 828.73 Output Total 1550 / 1550 Balance 275 / 125 -721.27 / -721.27 Laboratory Results 01/13/20 17:00: WBC 10.8, RBC 3.66 L, Hgb 9.4 L, Hct 32.9 L, MCV 89.9, MCH 25.7 L, MCHC 28.6 L, RDW Std Deviation 61.3 H, RDW Coeff of Zuri 18.6 H, Plt Count 376, MPV 9.5, Immature Gran % (Auto) 1.200 H, Neut % (Auto) 89.9 H, Lymph % (Auto) 3.2 L, [place] % (Auto) 5.3, Eos % (Auto) 0.3, Baso % (Auto) 0.1, Absolute Neuts (auto) 9.7 H, Absolute Lymphs (auto) 0.34 L, Nucleated RBC % 0, Differential Comment SEE COMMENT, Platelet Estimate ADEQUATE, RBC Morphology N CHROM, Anisocytosis RARE 01/13/20 17:00: PT 16.4 H, INR 1.4, APTT 38.8 H 01/13/20 17:00: Sodium 140, Potassium 3.4 L, Chloride 103, Carbon Dioxide 31.0, Anion Gap 6, BUN 51 H, Creatinine 1.42 H, Estim Creat Clear Calc 48.78, Est GFR (MDRD) Af Amer 47 L, Est GFR (MDRD) Non-Af 38 L, BUN/Creatinine Ratio 35.9 H, Glucose 81, Calcium 9.2, Total Bilirubin 0.40, AST 14 L, ALT 19, Alkaline Phosphatase 97, Total Protein 7.1, Albumin 2.4 L, Globulin 4.7 H, Albumin/Globulin Ratio 0.5 L 01/13/20 17:00: Lactic Acid 1.7 01/13/20 22:08: POC Glucose 84 01/14/20 05:53: Sodium 140, Potassium 3.7, Chloride 102, Carbon Dioxide 34.0 H, Anion Gap 4 L, BUN 45 H, Creatinine 1.20 H, Estim Creat Clear Calc 62.92, Est GFR (MDRD) Af Amer 56 L, Est GFR (MDRD) Non-Af 47 L, BUN/Creatinine Ratio 37.5 H , Glucose 74, Calcium 8.7, Magnesium 1.8, Iron 32 L, TIBC 180 L, Iron Saturation 17.8, TSH 1.30 01/14/20 07:56: POC Glucose 53 L 01/14/20 08:11: POC Glucose 56 L 01/14/20 08:47: POC Glucose 78 Current Medications Acetaminophen (Tylenol) 650 mg PO Q6H PRN PRN PRN Reason: Pain Score 1-10/Temp > 100.7 F Apixaban (Eliquis) 2.5 mg PO BID [facility] Last Admin: 01/14/20 08:48 Dose: 2.5 mg Documented by: Brimonidine Tartrate (Brimonidine 0.2% 5ml Bottle) 1 drop EACH EYE BID [facility] Last Admin: 01/14/20 08:48 Dose: 1 drop Documented by: Cyclobenzaprine HCl (Flexeril) 10 mg PO QHS [facility] Last Admin: 01/13/20 21:55 Dose: 10 mg Documented by: Sodium Chloride () 250 mls @ 15 mls/hr IV .[id number] PRN PRN Reason: Saline Flush Last Infusion: 01/14/20 10:33 Dose: 0 mls/hr Documented by: Furosemide 500 mg/ N/A 50 mls @ 2 mls/hr CONT INF .Q25H [facility] Last Infusion: 01/14/20 10:38 Dose: 0 mg/hr, 0 mls/hr Documented by: Vancomycin IV Pharmacy to Dose (1 ea/ Sodium Chloride) 500 mls @ 250 mls/hr IV X1 PRN; Protocol PRN Reason: Rx to Dose Vancomycin HCl 750 mg/ Sodium (Chloride) 265 mls @ 250 mls/hr IV Q24H [facility] Insulin Human Lispro (Humalog Kwikpen (Bkc)) 0 unit SC ACHS [facility]; Protocol Last Admin: 01/14/20 11:34 Dose: Not Given Documented by: Lorazepam (Ativan) 0.5 mg PO Q6H PRN PRN PRN Reason: ANXIETY/AGITATION Magnesium Chloride (Mag64) 128 mg PO BID [facility] Last Admin: 01/14/20 08:48 Dose: 128 mg Documented by: Non-Formulary Medication (Difluprednate) 1 drp EACH EYE QODAY [facility] Nutritional Formula (Lactose Free) (Ensure Enlive) 120 ml PO 4X/DAY [facility] Last Admin: 01/14/20 10:39 Dose: 120 ml Documented by: Ondansetron HCl (Zofran) 4 mg IV Q8H PRN PRN PRN Reason: NAUSEA/VOMITING Last Admin: 01/14/20 06:48 Dose: 4 mg Documented by: Oxycodone HCl (Oxycontin) 10 mg PO TID [facility] Last Admin: 01/14/20 06:35 Dose: 10 mg Documented by: Oxycodone HCl (Oxyir) 10 mg PO Q4H PRN PRN PRN Reason: Pain Score 4-5/10 Last Admin: 01/14/20 08:19 Dose: 5 mg Documented by: Oxycodone HCl (Oxyir) 10 mg PO Q4H PRN PRN PRN Reason: Pain Score 6-10/10 Potassium Chloride (K-Dur) 20 meq PO Q8 [facility] Last Admin: 01/14/20 06:35 Dose: 20 meq Documented by: Promethazine HCl (Phenergan Tablet) 25 mg PO 4X/DAY PRN PRN PRN Reason: NAUSEA/VOMITING Sodium Chloride () 10 - 40 ml IV UD PRN PRN Reason: SALINE FLUSH Medical Necessity - Tobacco Use Smoking Status: Never smoker Tobacco Use: Non-smoker Assessment/Plan All Active Problems Anasarca (Acute) Cellulitis of right lower leg (Acute) Cellulitis (Acute) Allergic drug reaction (Resolved) Redness of the lower extremities (Acute) Acute exacerbation of extrinsic asthma (Resolved) Abdominal wall ulcer (Resolved) Acute renal insufficiency (Resolved) CSD (cat scratch disease) (Resolved) Cellulitis of left lower extremity (Resolved) Cellulitis of right lower extremity (Resolved) Colitis (Resolved) Dehydration (Resolved) Dental infection (Resolved) Left leg cellulitis (Resolved) Sepsis (Resolved) Sepsis (Resolved) Severe sepsis (Resolved) Surgical wound dehiscence (Resolved) Ulcer of right lower extremity with fat layer exposed (Resolved) #1 anasarca to the lower legs, etiology unclear probably venous stasis in nature versus lymphatic interruption from radiation treatment to the pelvis for ovarian cancer-patient will stay on IV Lasix drip, magnesium and electrolytes will be checked tomorrow. Chest x-ray done yesterday did not show any evidence of congestive heart failure, there was noted to be an elevated left hemidiaphragm. #2 cellulitis of the right lower leg with superficial venous stasis ulceration- patient will be maintained on IV vancomycin, I would like to wrap the patient's legs today with Smith wrap to see if this improves the healing of this ulceration. Patient will probably need to see the wound care nurse on Wednesday #3 type 2 diabetes-patient's blood sugars were monitored and sliding scale insulin will be used to control the blood sugars, due to low blood sugar today, her metformin was discontinued. #4 stage III chronic kidney disease secondary to type 2 diabetes-renal function will be monitored #5 chronic anticoagulation with Eliquis due to past history of PE #6 chronic anemia-iron deficiency in nature, patient will receive Venofer today and tomorrow #7 obesity #8 history of ovarian cancer with resultant colostomy #9 venous insufficiency to the legs #10 chronic anxiety #11 chronic pain-patient is currently taking OxyContin as well as OxyIR #12 hypokalemia-corrected at this time Inpatient E&M: 84788 Subs Hosp L2
[2020-01-14 12:16] LABS: Bedside Glucose 109 mg/dL (70-110)
[2020-01-14 18:31] LABS: Bedside Glucose 107 mg/dL (70-110)
[2020-01-14] MEDS: Acetaminophen 325 MG Tablet 650 MG PO (20:00)
[2020-01-14] MEDS: cycloBENZAPRine HCl 10 MG Tablet PO (22:00)
[2020-01-14 22:30] LABS: Bedside Glucose 136 mg/dL (70-110)
[2020-01-15] VITALS (10 sets, daily range): BP systolic 106–123; BP diastolic 52–67; PULSE 80–130; RESP 14–18; TEMP 36.6–36.9; O2SAT 93–100
[2020-01-15] MEDS: Furosemide 500 MG in Empty Viaflex 50 mL 1 EACH CONT INF (03:18)
[2020-01-15 05:51] LABS: Anion Gap 5 (5-15); BUN 44 mg/dL (7-18); BUN/Creat Ratio 32.4 RATIO (10-20); Calcium,Total 8.3 mg/dL (8.5-10.1); Chloride 98 mmol/L (98-107); Creatinine, Serum 1.36 mg/dL (0.55-1.02); EST Glomerular Filtration Rate 40 mL/min (>60); Est Glom Filt Rate - Afr Amer 49 mL/min (>60); Estimated Creatinine Clearance 51.16 ml/min; Glucose 89 mg/dL (74-106); Magnesium 1.7 mg/dL (1.6-2.6); Potassium 3.4 mmol/L (3.5-5.1); Sodium Level 139 mmol/L (136-145)
[2020-01-15] MEDS: oxyCODONE HCl Cr 10 MG Tablet PO ×3 (06:01→22:06)
[2020-01-15 07:25] LABS: Bedside Glucose 88 mg/dL (70-110)
[2020-01-15] MEDS: BRIMONIDINE 0.2% 5ML BOTTLE 1 DRP EACH EYE ×2 (09:08→22:04)
[2020-01-15] MEDS: APIXABAN 2.5 MG TABLET PO ×2 (09:09→22:05)
[2020-01-15] MEDS: Magnesium Chloride 64 MG Delay Rel.Tablet 128 MG PO ×2 (09:09→22:06)
[2020-01-15] MEDS: 0.9% Saline Lock 10 ML Syringe IV (10:14)
[2020-01-15] MEDS: Sodium Ferric Gluconat 250 MG in 0.9% Normal Saline 250 ML 135 MG IV (10:14)
--- NOTE | 2020-01-15 10:33 | CASEMGMT ---
BRIT RAMON assessment: Face to Face with patient for initial transition planning/care coordination assessment. BRIT RAMON introduced self and role at [facility], pt voices understanding and consents to assessment at this time. Pt is sitting up in bed in no distress at this time. Pt is A/Ox4 at this time and answers all questions appropriately at this time. Care providers, pharmacy, and demographics verified at this time. Presentation: Bilat lower edema/pain-increased lasix to remove fluid without relief-pt also on antibx, sees wound clinic-increase in dizziness Admitting dx: Anasarca, cellulitis right leg PCP: [facility] Specialists: Mascprasanth, onc-pt states has 2 cancers and is currently on Opdivo Preferred Pharmacy: [facility] Insurance: [employer] Prescription Benefit: [employer] Living Will/HPOA: Pt states has LW/HPOA and is aware that they are not on file at [facility] at this time. Pt states her daughter/son are HPOA. LNOK: Eliz Boo, daughter/HPOA; Luis Keys, son/HPOA Living Arrangements: Pt states lives alone on main level of 2 story home with 3 steps in and states no concerns at home at this time. Pt states daughter does assist with some ADL's. Transportation: Pt states daughter, Eliz, drives and states no transportation concerns at this time. DME/HHC: Pt states has the following DME: cane, walker, w/c, rails, and shower chair. Pt states no need for any further DME at this time. Pt states has had HHC in the past and has been to [facility] in the past. Pt states no concerns with going home at time of discharge. Pt states is retired. Pt states does not smoke cigarettes or drink ETOH. Pt states no further concerns/needs at this time. CM to follow for any further discharge planning/needs. Advised pt to ask for CM if any further questions/concerns/needs arise, voices understanding. Pt Goal: Home Plan[place]
--- NOTE | 2020-01-15 11:23 | PN_ITS ---
Patient Problems: Active and Suspected Problems Anasarca (Acute) Cellulitis of right lower leg (Acute) Subjective: Patient was seen and examined today, she is getting an echocardiogram done at the time of my examination. She has no complaints of any shortness of breath, it appears that her lower leg edema is greatly improved. Patient's potassium was slightly low this morning. - Physical Exam Vitals/I&O's: Vital Signs Temp Pulse Resp BP Pulse Ox 97.9 F 87 18 117/65 96 01/15/20 08:20 01/15/20 08:23 01/15/20 08:23 01/15/20 08:20 01/15/20 08:20 Oxygen Delivery Method Room Air Weight: 89.3 kg Body Mass Index (BMI) 43.1 Finger Stick Blood Glucose 210 Intake and Output for Last 24 Hours 01/13/20 01/14/20 01/15/20 23:59 23:59 23:59 Intake Total 275 / 475 2434.55 / 2634.55 226.17 / 226.17 Output Total 6650 / 7900 2475 / 2475 Balance 275 / 125 -4215.45 / -5265.45 -2248.83 / -2248.83 General: Alert, Oriented x3, Cooperative, No apparent distress, Well developed, Well nourished HEENT: Atraumatic, PERRLA, EOMI, Normocephalic Oral: Moist Mucosa Neck: Supple, No JVD, Trachea Midline, Thyroid Normal Size and Texture Lungs: Clear to auscultation, Normal air movement, No rhonchi, No wheeze, No rales Cardiovascular: Regular rate, Regular Rhythm, Normal S1, Normal S2, No murmurs, PMI Normal, No rub noted, No Gallop Abdomen: Bowel Sounds Present, Soft, Non Tender, Non-Distended, Obese, - - Colostomy in place Extremities: No clubbing, No cyanosis, Capillary Refill Less than 3 Seconds, Edema - There is noted to be +1 to +2 mm pitting edema in the lower legs bilaterally Skin: No rashes, Ulcer/ Wound - Again is noted the presence of a superficial venous stasis ulcer on the right lateral lower leg. There is no drainage noted from the area, this area appears to be healing Musculoskeletal: No Tenderness to Palpation of Joints or Extremities Neurological: Cranial nerves II-XII grossly intact, Neuro grossly intact, Sensory exam intact to light touch and pain Psych/Mental Status: Normal Affect, Appropriate, Alert and oriented to time, place, person, mood and affect Laboratory Results 01/14/20 11:33: POC Glucose 109 01/14/20 16:26: POC Glucose 107 01/14/20 22:09: POC Glucose 136 H 01/15/20 05:24: Sodium 139, Potassium 3.4 L, Chloride 98, Carbon Dioxide 36.0 H, Anion Gap 5, BUN 44 H, Creatinine 1.36 H, Estim Creat Clear Calc 51.16, Est GFR (MDRD) Af Amer 49 L, Est GFR (MDRD) Non-Af 40 L, BUN/Creatinine Ratio 32.4 H, Glucose 89, Calcium 8.3 L, Magnesium 1.7 01/15/20 07:20: POC Glucose 88 Current Medications Acetaminophen (Tylenol) 650 mg PO Q6H PRN PRN PRN Reason: Pain Score 1-10/Temp > 100.7 F Last Admin: 01/14/20 20:00 Dose: 650 mg Documented by: Apixaban (Eliquis) 2.5 mg PO BID [facility] Last Admin: 01/15/20 09:09 Dose: 2.5 mg Documented by: Brimonidine Tartrate (Brimonidine 0.2% 5ml Bottle) 1 drop EACH EYE BID [facility] Last Admin: 01/15/20 09:08 Dose: 1 drop Documented by: Cyclobenzaprine HCl (Flexeril) 10 mg PO QHS [facility] Last Admin: 01/14/20 22:00 Dose: 10 mg Documented by: Sodium Chloride () 250 mls @ 15 mls/hr IV .[id number] PRN PRN Reason: Saline Flush Last Infusion: 01/14/20 13:15 Dose: Infused Documented by: Furosemide 500 mg/ N/A 50 mls @ 1 mls/hr CONT INF .Q50H [facility] Last Infusion: 01/15/20 10:47 Dose: 10 mg/hr, 1 mls/hr Documented by: Vancomycin IV Pharmacy to Dose (1 ea/ Sodium Chloride) 500 mls @ 250 mls/hr IV X1 PRN; Protocol PRN Reason: Rx to Dose Vancomycin HCl 750 mg/ Sodium (Chloride) 265 mls @ 250 mls/hr IV Q24H [facility] Last Infusion: 01/14/20 19:56 Dose: Infused Documented by: Insulin Human Lispro (Humalog Kwikpen (Bkc)) 0 unit SC [facility]; Protocol Last Admin: 01/15/20 07:21 Dose: Not Given Documented by: Lorazepam (Ativan) 0.5 mg PO Q6H PRN PRN PRN Reason: ANXIETY/AGITATION Magnesium Chloride (Mag64) 128 mg PO BID [facility] Last Admin: 01/15/20 09:09 Dose: 128 mg Documented by: Ondansetron HCl (Zofran) 4 mg IV Q8H PRN PRN PRN Reason: NAUSEA/VOMITING Last Admin: 01/14/20 06:48 Dose: 4 mg Documented by: Oxycodone HCl (Oxycontin) 10 mg PO TID [facility] Last Admin: 01/15/20 06:01 Dose: 10 mg Documented by: Oxycodone HCl (Oxyir) 10 mg PO Q4H PRN PRN PRN Reason: Pain Score 4-5/10 Last Admin: 01/14/20 20:02 Dose: 5 mg Documented by: Oxycodone HCl (Oxyir) 10 mg PO Q4H PRN PRN PRN Reason: Pain Score 6-10/10 Potassium Chloride (K-Dur) 20 meq PO Q8 [facility] Last Admin: 01/15/20 06:02 Dose: 20 meq Documented by: Promethazine HCl (Phenergan Tablet) 25 mg PO 4X/DAY PRN PRN PRN Reason: NAUSEA/VOMITING Sodium Chloride () 10 - 40 ml IV UD PRN PRN Reason: SALINE FLUSH Last Admin: 01/15/20 10:14 Dose: 20 ml Documented by: Medical Necessity - Tobacco Use Smoking Status: Never smoker Tobacco Use: Non-smoker Assessment/Plan All Active Problems Anasarca (Acute) Cellulitis of right lower leg (Acute) Cellulitis (Acute) Allergic drug reaction (Resolved) Redness of the lower extremities (Acute) Acute exacerbation of extrinsic asthma (Resolved) Abdominal wall ulcer (Resolved) Acute renal insufficiency (Resolved) CSD (cat scratch disease) (Resolved) Cellulitis of left lower extremity (Resolved) Cellulitis of right lower extremity (Resolved) Colitis (Resolved) Dehydration (Resolved) Dental infection (Resolved) Left leg cellulitis (Resolved) Sepsis (Resolved) Sepsis (Resolved) Severe sepsis (Resolved) Surgical wound dehiscence (Resolved) Ulcer of right lower extremity with fat layer exposed (Resolved) #1 anasarca to the lower legs, etiology unclear probably venous stasis in nature versus lymphatic interruption from radiation treatment to the pelvis for ovarian cancer-patient will stay on IV Lasix drip, I have reduced the rate to 10 mg/h, magnesium and electrolytes will be checked tomorrow. Echocardiogram is pending at the time of this dictation #2 cellulitis of the right lower leg with superficial venous stasis ulceration- patient will be maintained on IV vancomycin, continue to wrap the lower legs with Smith wrap #3 type 2 diabetes-her blood sugars #4 stage III chronic kidney disease secondary to type 2 diabetes-renal function will be monitored #5 chronic anticoagulation with Eliquis due to past history of PE #6 chronic anemia-iron deficiency in nature, patient will receive Venofer today and tomorrow #7 obesity #8 history of ovarian cancer with resultant colostomy #9 venous insufficiency to the legs #10 chronic anxiety #11 chronic pain-patient is currently taking OxyContin as well as OxyIR #12 hypokalemia-this is mild, patient will be given extra potassium today Inpatient E&M: [id number] Subs Hosp L2
[2020-01-15] MEDS: Insulin Lispro 100 UNIT/ML INSULN.PEN SC ×3 (11:32→22:05)
[2020-01-15 11:40] LABS: Bedside Glucose 160 mg/dL (70-110)
--- NOTE | 2020-01-15 11:54 | NURSING ---
skin photo: right lower leg
--- NOTE | 2020-01-15 11:55 | NURSING ---
skin photo: left lower leg
[2020-01-15 16:51] LABS: Bedside Glucose 239 mg/dL (70-110)
[2020-01-15 18:54] LABS: Vancomycin, Trough Level 10.3 ug/mL (5.0-15.0)
--- NOTE | 2020-01-15 19:57 | PCM.RX.CS ---
Consult Pharmacy has been consulted to manage selected antiobiotic: Vancomycin Type of Consult: Follow-up Suspected Infection: Skin/Soft tissue Labs: Sodium 139 mmol/L (136-145) 01/15/20 05:24 Potassium 3.4 mmol/L (3.5-5.1) L 01/15/20 05:24 Chloride 98 mmol/L (98-107) 01/15/20 05:24 Carbon Dioxide 36.0 mmol/L (21.0-32.0) H 01/15/20 05:24 Anion Gap 5 (5-15) 01/15/20 05:24 BUN 44 mg/dL (7-18) H 01/15/20 05:24 Creatinine 1.36 mg/dL (0.55-1.02) H 01/15/20 05:24 Est GFR (MDRD) Af Amer 49 mL/min (>60) L 01/15/20 05:24 Est GFR (MDRD) Non-Af 40 mL/min (>60) L 01/15/20 05:24 BUN/Creatinine Ratio 32.4 RATIO (10-20) H 01/15/20 05:24 Glucose 89 mg/dL (74-106) 01/15/20 05:24 Vancomycin Trough 10.3 ug/mL (5.0-15.0) 01/15/20 17:30 Goal Trough: 10-15 mcg/mL Pharmacy Plan for Drug Dosing: VANCOMYCIN LEVEL RECEIVED Current Vancomycin Dose: 750MG Q24H Number of Doses Received: 2 Vancomycin Level: 10.3 MG/DL Hours Since Last Dose: 23 Renal Function: 1.36 MG/DL (37.1 ML/MIN USING ADJUSTED BW) Renal Function Trend: STABLE Lab/Micro: BLOOD CULTURES PENDING Vancomycin Plan/Comments: TROUGH ON THE LOW END OF GOAL RANGE. TODAY'S DOSE WAS HUNG SO WILL INCREASE TO 1000MG Q24H STARTING 01/15 @ 1800. WILL GET A TROUGH BEFORE THE 3RD DOSE OF THE NEW REGIMEN. Pharmacy Service will continue to monitor and adjust dosing as required. Labs to be done on [date and time ordered]: 01/18/20 @ 2596
[2020-01-15] MEDS: cycloBENZAPRine HCl 10 MG Tablet PO (22:04)
[2020-01-15 22:15] LABS: Bedside Glucose 224 mg/dL (70-110)
[2020-01-16 03:00] VITALS: PULSE 82
[2020-01-16 04:27] VITALS: BP 120/54; PULSE 80; RESP 16; TEMP 36.7; O2SAT 99
[2020-01-16] MEDS: DiphenhydrAMINE 25 MG Capsule PO (05:04)
[2020-01-16] MEDS: oxyCODONE HCl Cr 10 MG Tablet PO ×2 (05:04→14:29)
[2020-01-16 06:40] LABS: Anion Gap 4 (5-15); BUN 43 mg/dL (7-18); BUN/Creat Ratio 31.4 RATIO (10-20); Calcium,Total 8.6 mg/dL (8.5-10.1); Chloride 95 mmol/L (98-107); Creatinine, Serum 1.37 mg/dL (0.55-1.02); EST Glomerular Filtration Rate 40 mL/min (>60); Est Glom Filt Rate - Afr Amer 48 mL/min (>60); Estimated Creatinine Clearance 48.97 ml/min; Glucose 127 mg/dL (74-106); Magnesium 1.8 mg/dL (1.6-2.6); Potassium 3.3 mmol/L (3.5-5.1); Sodium Level 136 mmol/L (136-145)
[2020-01-16 07:05] LABS: Bedside Glucose 131 mg/dL (70-110)
[2020-01-16 07:32] VITALS: PULSE 89
[2020-01-16] MEDS: Magnesium Chloride 64 MG Delay Rel.Tablet 128 MG PO (08:56)
[2020-01-16] MEDS: APIXABAN 2.5 MG TABLET PO (08:56)
[2020-01-16] MEDS: BRIMONIDINE 0.2% 5ML BOTTLE 1 DRP EACH EYE (08:56)
[2020-01-16] MEDS: Sodium Ferric Gluconat 250 MG in 0.9% Normal Saline 250 ML 135 MG IV (09:12)
[2020-01-16 10:55] VITALS: BP 125/47; PULSE 94; RESP 18; TEMP 37.2; O2SAT 95
[2020-01-16] MEDS: Insulin Lispro 100 UNIT/ML INSULN.PEN SC (11:17)
[2020-01-16 11:21] LABS: Bedside Glucose 243 mg/dL (70-110)
--- NOTE | 2020-01-16 12:35 | PCM.DC ---
- Discharge Diagnoses Current Active Problems: Current Active and Chronic Problems Anasarca (Acute) Cellulitis of right lower leg (Acute) You will use the following diet at home:: Calorie/Carbohydrate Controlled (specify 1200, 1400, etc) - 1800 harry Your food should be the consistency of: Regular Your liquids should be the consistency of: Regular/Thin Discharge Activity: Return to Normal Activity Weight Bearing Status: Full weight bearing Allergies/Adverse Reactions: Allergies clindamycin Allergy (Verified 01/13/20 16:17) Other iodine Allergy (Verified 01/13/20 16:17) rash/incoherent meperidine HCl [From Demerol] Allergy (Verified 01/13/20 16:17) Nausea/vomiting/diarrhea Penicillins Allergy (Verified 01/13/20 16:17) Itching/hives adhesive tape Adverse Reaction (Verified 01/13/20 16:17) blisters BLISTERS aspirin Adverse Reaction (Verified 01/13/20 16:17) nosebleeds diazepam [From Valium] Adverse Reaction (Verified 01/13/20 16:17) Nausea/Vom/Diarrhea egg Adverse Reaction (Verified 01/13/20 16:17) Diarrhea levofloxacin [From Levaquin] Adverse Reaction (Verified 01/13/20 16:17) Vomiting methadone Adverse Reaction (Verified 01/13/20 16:17) Upset Stomach morphine Adverse Reaction (Verified 01/13/20 16:17) Nausea/Vom/Diarrhea sulfamethoxazole [From Bactrim] Adverse Reaction (Verified 01/13/20 16:17) Nausea/Vom/Diarrhea trimethoprim [From Bactrim] Adverse Reaction (Verified 01/13/20 16:17) Nausea/Vom/Diarrhea Medications to take at Discharge Cyanocobalamin [Vitamin B12] 1,000 mcg PO DAILY@0800 05/29/15 cycloBENZAPRine HCl [Flexeril] 10 mg PO QHS 05/29/15 metFORMIN HCl [Glucophage] 1,000 mg PO BIDCM 05/29/15 Apixaban [Eliquis] 2.5 mg PO BID 06/12/15 proMETHazine tablet [Phenergan tablet] 25 mg PO 4X/DAY PRN PRN #20 tablet 07/20/15 Albuterol IH (ProAir) [Proair Hfa] 2 puff INHALATION Q6H PRN PRN 05/27/16 Ondansetron HCl [Zofran] 8 mg PO TID PRN PRN 05/27/16 Oxycodone HCl [Oxycodone HCl ER] 10 mg PO TID 12/25/16 Cholecalciferol (VIT D3) [Vitamin D3] 2,000 unit PO DAILY 04/01/18 Ascorbic Acid [C-1000 with Kelley Hips] 500 mg PO DAILY 01/12/19 DiphenhydrAMINE [Benadryl] 25 mg PO BID 01/12/19 Lorazepam [Ativan] 0.25 - 0.5 mg PO Q6H PRN PRN 01/12/19 Brimonidine Tartrate 0.2% [Brimonidine 0.2% 5Ml Bottle] 1 drp EACH EYE BID 04/22/19 Cetirizine HCl 10 mg PO DAILY PRN 04/22/19 Difluprednate [Durezol] 1 drp EACH EYE 04/22/19 Nivolumab [Opdivo] 240 mg IV .COMPLEX 04/22/19 Oxycodone [Oxyir] 5 mg PO PRN PRN 04/22/19 Hydrocortisone [Cortef] 10 mg PO BID 01/15/20 Acetaminophen [Tylenol Tablet] 650 mg PO Q6H PRN PRN tablet 01/16/20 Potassium Chloride 20 meq PO BID #120 tablet.er 01/16/20 Torsemide [Demadex] 40 mg PO BID #120 tab 01/16/20 The following prescriptions were given: Torsemide [Demadex] 40 mg PO BID #120 tab Transmission Status: Pending to [employer] #30 Potassium Chloride 20 meq PO BID #120 tablet.er Transmission Status: Pending to [id number] #[id number] Primary Care Physician: Chente Daigle MD [Primary Care Provider] - Please follow up with your Primary Care Physician in: next week-get your BMP rechecked Test Results: Test results from this visit will be discussed in further detail at your follow-up appointment, if applicable. Please Follow Up With: Isidro Estevez DO When: as scheduled
[2020-01-16 14:25] VITALS: BP 121/60; PULSE 90; RESP 20; TEMP 36.9; O2SAT 96
--- NOTE | 2020-01-16 14:39 | PHA.DC.MC ---
Pharmacy Service has performed discharge medication reconciliation and counseling for this patient. The patient was counseled on the following discharge medications and changes in medications for homegoing were reviewed. 1. TORSEMIDE 2. K-DUR 3. TYLENOL The Reason for Use, instructions for use, and potential side effects were reviewed for all new medications. The patient's questions regarding all of their medications were answered. The patient was able to verbally demonstrate an understanding of their discharge medications. Home Medications Cyanocobalamin [Vitamin B12] 1,000 mcg PO DAILY@0800 05/29/15 cycloBENZAPRine HCl [Flexeril] 10 mg PO QHS 05/29/15 metFORMIN HCl [Glucophage] 1,000 mg PO BIDCM 05/29/15 Apixaban [Eliquis] 2.5 mg PO BID 06/12/15 proMETHazine tablet [Phenergan tablet] 25 mg PO 4X/DAY PRN PRN #20 tablet 07/20/15 Albuterol IH (ProAir) [Proair Hfa] 2 puff INHALATION Q6H PRN PRN 05/27/16 Ondansetron HCl [Zofran] 8 mg PO TID PRN PRN 05/27/16 Oxycodone HCl [Oxycodone HCl ER] 10 mg PO TID 12/25/16 Cholecalciferol (VIT D3) [Vitamin D3] 2,000 unit PO DAILY 04/01/18 Ascorbic Acid [C-1000 with Kelley Hips] 500 mg PO DAILY 01/12/19 DiphenhydrAMINE [Benadryl] 25 mg PO BID 01/12/19 Lorazepam [Ativan] 0.25 - 0.5 mg PO Q6H PRN PRN 01/12/19 Brimonidine Tartrate 0.2% [Brimonidine 0.2% 5Ml Bottle] 1 drp EACH EYE BID 04/22/19 Cetirizine HCl 10 mg PO DAILY PRN 04/22/19 Difluprednate [Durezol] 1 drp EACH EYE 04/22/19 Nivolumab [Opdivo] 240 mg IV .COMPLEX 04/22/19 Oxycodone [Oxyir] 5 mg PO PRN PRN 04/22/19 Hydrocortisone [Cortef] 10 mg PO BID 01/15/20 Acetaminophen [Tylenol Tablet] 650 mg PO Q6H PRN PRN tab 01/16/20 Potassium Chloride 20 meq PO BID #120 tablet.er 01/16/20 Torsemide [Demadex] 40 mg PO BID #120 tab 01/16/20 The patient's discharge medication list was reviewed for discrepancies and discrepancies were resolved.
[2020-01-16 16:40] LABS: Bedside Glucose 231 mg/dL (70-110)
--- NOTE | 2020-01-16 18:29 | DS.PCM_ITS ---
Discharge Date and Diagnosis - Problem List Patient Problems: Active and Suspected Problems Anasarca (Acute) Cellulitis of right lower leg (Acute) Date of Admission: 01/13/20 Date of Discharge: 01/16/20 - Primary Discharge Diagnosis Acute Problems: Active Problems #1 anasarca to the lower legs, probably multifactorial including venous insufficiency and possible alteration of venous return in the pelvis due to previous radiation treatment and melanoma #2 cellulitis of the right lower leg with superficial venous stasis ulceration- organism unknown #3 type 2 diabetes #4 stage III chronic kidney disease secondary to type 2 diabetes #5 chronic anticoagulation with Eliquis due to past history of PE #6 chronic anemia-iron deficiency in nature #7 obesity #8 history of ovarian cancer with resultant colostomy #9 venous insufficiency to the legs #10 chronic anxiety #11 chronic pain #12 hypokalemia #13 melanoma-patient is being actively treated for melanoma #14 chronic lymphedema of the legs - Secondary Discharge Diagnosis Chronic Problems: Chronic Problems Venous ulcer of right lower extremity without varicose veins (Chronic) Multiple thyroid nodules (Chronic) Thyromegaly (Chronic) Bilateral lower extremity edema (Chronic) Lymphedema of both lower extremities (Chronic) Melanoma (Chronic) Asthma (Chronic) Reported, severity unknown History of DVT (deep vein thrombosis) (Chronic) History of pulmonary embolism (Chronic) Type II diabetes mellitus (Chronic) Cancer of ovary (Chronic) Anemia (Chronic) Venous insufficiency (Chronic) Poor dentition (Chronic) Hospital Course and Treatment Consultations 01/13/20 18:59 Consult: Onc/Wound/computer operations technician Routine Comment: Operations: None Procedures: 2-D Echocardiogram Summary of Care Provided: The patient is a 74 year old F seen in the emergency room at [facility] after seeking medical attention for persistent edema of her lower extremity along with redness and pain. Patient also had a open wound which had been treated as an outpatient with oral antibiotics on her right lower leg, she had been on antibiotics for at least 2 weeks. Evaluation in the emergency room showed the patient to have severe lower leg edema with fluid retention and signs of chronic lymphedema. It is superficial ulceration over the lateral aspect of her right lower leg, there is generalized redness more so in the right lower leg but also some redness in the left lower leg. Patient was admitted to PCU for anasarca and cellulitis of the right lower leg, she was placed on Lasix drip and placed on IV vancomycin, over the next few days during her hospitalization she lost a great deal of weight due to diuresis and the condition of her lower legs improved tremendously. She was seen in consultation by wound care, she also underwent an echocardiogram which showed no evidence of LV dysfunction or pulmonary hypertension. Her electrolytes were monitored and she received potassium replacement. On 01/16/2020, she was seen and examined: On examination she appeared in good health and spirits, she does not appear to be in any distress. Vital signs as documented. Skin warm and dry and without overt rashes. Neck without JVD, thyroid appears normal, trachea is midline, neck is supple. Lungs clear, normal air movement was noted. Heart exam notable for regular rhythm, normal sounds and absence of murmurs, rubs or gallops. Abdomen unremarkable and without evidence of organomegaly, masses, or abdominal aortic enlargement, bowel sounds are present in all 4 quadrants, no abdominal tenderness was noted. Extremities- evidence of +1 pitting edema is noted over the lower legs bilaterally, patient has a superficial ulceration noted on the lateral aspect of her right lower leg which does not appear to be draining any liquid. Evidence of chronic lymphedema is noted on her left lower leg, no cyanosis was noted, no clubbing was noted. Neuro: Cranial nerves II through XII are grossly intact, no focal motor deficits were noted, sensation to light touch and pinprick is intact, motor exam 5/5 throughout. Psych: Patient is alert and oriented x3, she does not appear anxious or depressed, she does not appear agitated. Patient was discharged home in stable condition on 01/16/2020, her outpatient diuretics were changed to Demadex to see if the patient would have a better response to this medication. Patient Problems: Active and Suspected Problems Anasarca (Acute) Cellulitis of right lower leg (Acute) - Physical Exam Vitals/I&O's: Vital Signs Temp Pulse Resp BP Pulse Ox 98.5 F 90 20 H 121/60 H 96 01/16/20 14:25 01/16/20 14:25 01/16/20 14:25 01/16/20 14:25 01/16/20 14:25 Oxygen Delivery Method Room Air Weight: 86.1 kg Body Mass Index (BMI) 43.1 Finger Stick Blood Glucose 210 Intake and Output for Last 24 Hours 09/01/15/20 01/16/20 23:59 23:59 23:59 Intake Total 2434.55 / 2634.55 761.17 / 1161.17 1017.7 / 1017.7 Output Total 6650 / 7900 6025 / 7000 3175 / 3175 Balance -4215.45 / -5265.45 -5263.83 / -5838.83 -2157.3 / -2157.3 Microbiology Past 72 Hours 01/13/20 17:00 Blood Culture (Wb) - Anticubital Left Blood Culture - Preliminary No growth in 48 hours. 01/13/20 17:00 Blood Culture (Wb) - Anticubital Right Blood Culture - Preliminary No growth in 48 hours. Laboratory Results 01/15/20 17:30: Vancomycin Trough 10.3 01/15/20 22:03: POC Glucose 224 H 01/16/20 05:52: Sodium 136, Potassium 3.3 L, Chloride 95 L, Carbon Dioxide 37.0 H, Anion Gap 4 L, BUN 43 H, Creatinine 1.37 H, Estim Creat Clear Calc 48.97, Est GFR (MDRD) Af Amer 48 L, Est GFR (MDRD) Non-Af 40 L, BUN/Creatinine Ratio 31.4 H , Glucose 127 H, Calcium 8.6, Magnesium 1.8 01/16/20 06:46: POC Glucose 131 H 01/16/20 11:16: POC Glucose 243 H 01/16/20 16:33: POC Glucose 231 H Current Medications Acetaminophen (Tylenol) 650 mg PO Q6H PRN PRN PRN Reason: Pain Score 1-10/Temp > 100.7 F Last Admin: 01/14/20 20:00 Dose: 650 mg Documented by: Apixaban (Eliquis) 2.5 mg PO BID COUNTS INCLUDE 234 BEDS AT THE [facility] Last Admin: 01/16/20 08:56 Dose: 2.5 mg Documented by: Brimonidine Tartrate (Brimonidine 0.2% 5ml Bottle) 1 drop EACH EYE BID COUNTS INCLUDE 234 BEDS AT THE [facility] Last Admin: 01/16/20 08:56 Dose: 1 drop Documented by: Cyclobenzaprine HCl (Flexeril) 10 mg PO QHS COUNTS INCLUDE 234 BEDS AT THE [facility] Last Admin: 01/15/20 22:04 Dose: 10 mg Documented by: Diphenhydramine HCl (Benadryl) 25 mg PO BID PRN PRN PRN Reason: ITCHING Last Admin: 01/16/20 05:04 Dose: 25 mg Documented by: Sodium Chloride () 250 mls @ 15 mls/hr IV .[id number] PRN PRN Reason: Saline Flush Last Infusion: 01/14/20 13:15 Dose: Infused Documented by: Furosemide 500 mg/ N/A 50 mls @ 1 mls/hr CONT INF .Q50H COUNTS INCLUDE 234 BEDS AT THE [facility] Last Infusion: 01/16/20 14:29 Dose: Infused Documented by: Vancomycin HCl (Vancomycin) 1,000 mg in 200 mls @ 200 mls/hr IV Q24H COUNTS INCLUDE 234 BEDS AT THE [facility] Insulin Human Lispro (Humalog Kwikpen (Bkc)) 0 unit SC ACHS COUNTS INCLUDE 234 BEDS AT THE [facility]; Protocol Last Admin: 01/16/20 11:17 Dose: 4 units Documented by: Lorazepam (Ativan) 0.5 mg PO Q6H PRN PRN PRN Reason: ANXIETY/AGITATION Magnesium Chloride (Mag64) 128 mg PO BID COUNTS INCLUDE 234 BEDS AT THE [facility] Last Admin: 01/16/20 08:56 Dose: 128 mg Documented by: Ondansetron HCl (Zofran) 4 mg IV Q8H PRN PRN PRN Reason: NAUSEA/VOMITING Last Admin: 01/14/20 06:48 Dose: 4 mg Documented by: Oxycodone HCl (Oxycontin) 10 mg PO TID COUNTS INCLUDE 234 BEDS AT THE [facility] Last Admin: 01/16/20 14:29 Dose: 10 mg Documented by: Oxycodone HCl (Oxyir) 10 mg PO Q4H PRN PRN PRN Reason: Pain Score 4-5/10 Last Admin: 01/14/20 20:02 Dose: 5 mg Documented by: Oxycodone HCl (Oxyir) 10 mg PO Q4H PRN PRN PRN Reason: Pain Score 6-10/10 Potassium Chloride (K-Dur) 20 meq PO Q8 COUNTS INCLUDE 234 BEDS AT THE [facility] Last Admin: 01/16/20 14:29 Dose: 20 meq Documented by: Sodium Chloride () 10 - 40 ml IV UD PRN PRN Reason: SALINE FLUSH Last Admin: 01/15/20 10:14 Dose: 20 ml Documented by: Discharge Activity: Return to Normal Activity Weight Bearing Status: Full weight bearing Home Medications: Medications to take at Discharge Cyanocobalamin [Vitamin B12] 1,000 mcg PO DAILY@0800 05/29/15 cycloBENZAPRine HCl [Flexeril] 10 mg PO QHS 05/29/15 metFORMIN HCl [Glucophage] 1,000 mg PO BIDCM 05/29/15 Apixaban [Eliquis] 2.5 mg PO BID 06/12/15 proMETHazine tablet [Phenergan tablet] 25 mg PO 4X/DAY PRN PRN #20 tablet 07/20/15 Albuterol IH (ProAir) [Proair Hfa] 2 puff INHALATION Q6H PRN PRN 05/27/16 Ondansetron HCl [Zofran] 8 mg PO TID PRN PRN 05/27/16 Oxycodone HCl [Oxycodone HCl ER] 10 mg PO TID 12/25/16 Cholecalciferol (VIT D3) [Vitamin D3] 2,000 unit PO DAILY 04/01/18 Ascorbic Acid [C-1000 with Kelley Hips] 500 mg PO DAILY 01/12/19 DiphenhydrAMINE [Benadryl] 25 mg PO BID 01/12/19 Lorazepam [Ativan] 0.25 - 0.5 mg PO Q6H PRN PRN 01/12/19 Brimonidine Tartrate 0.2% [Brimonidine 0.2% 5Ml Bottle] 1 drp EACH EYE BID 04/22/19 Cetirizine HCl 10 mg PO DAILY PRN 04/22/19 Difluprednate [Durezol] 1 drp EACH EYE 04/22/19 Nivolumab [Opdivo] 240 mg IV .COMPLEX 04/22/19 Oxycodone [Oxyir] 5 mg PO PRN PRN 04/22/19 Hydrocortisone [Cortef] 10 mg PO BID 01/15/20 Acetaminophen [Tylenol Tablet] 650 mg PO Q6H PRN PRN tab 01/16/20 Potassium Chloride 20 meq PO BID #120 tablet.er 01/16/20 Torsemide [Demadex] 40 mg PO BID #120 tab 01/16/20 Following Prescriptions Were Given to Patient: Torsemide [Demadex] 40 mg PO BID #120 tab Transmission Status: Received by [facility] Potassium Chloride 20 meq PO BID #120 tablet.er Transmission Status: Received by [facility] Primary Care Physician: Chente Daigle MD [Primary Care Provider] - Please follow up with your Primary Care Physician in: next week-get your BMP rechecked Please Follow Up With: Isidro Estevez, DO When: as scheduled Please Follow Up With: Chente Daigle MD Disposition: Home Minutes spent on discharge:: 32 Patient Condition:: Stable Medical Necessity - Tobacco Use Smoking Status: Never smoker Tobacco Use: Non-smoker Meaningful Use Info Meaningful Use Diagnoses (Choose all that apply): None applicable Inpatient E&M: 94516 Disch Hosp
--- NOTE | 2020-01-17 10:34 | CASEMGMT ---
BRIT RAMON Discharge Follow-Up Phone Call. Yasmin: Vinod Strata: 3 Discharge Date: 01/16/20 Adm Dx: Anasarca, Cellulitis of Rt leg. Call to pt to inquire about how she has been doing since being discharged from the hospital. Pt states, I'm okay. She states she had slight nausea this morning, but that has resolved. She denies having any questions about the discharge instructions or medications. She states they picked up her new prescriptions last evening and denies having any questions about them. She is aware of the appt scheduled w/Dr Daigle on 01/25 and that she is to have BMP completed at that time. Pt states she has an appt with Dr Estevez tomorrow 01/17 @ 3 PM and will have blood work done there as well. She denies needs/concerns. BRIT RAMON thanked pt for choosing [facility]. Marcel RAMIREZ RN, CM
== END 2020-01-16 18:47 | disposition home or self-care (01) | DRG 603 ==
LOC: ED 17:17 → PCU 19:07
PROVIDERS: Admitting Provider Internal Medicine; Emergency Provider Emergency Medicine; PCP Family Medicine; Visit Provider Internal Medicine
DX: L03.115 Cellulitis of right lower limb (principal); Z68.41 Body mass index [BMI] 40.0-44.9, adult; L97.912 Non-pressure chronic ulcer of unspecified part of right lower leg with fat layer exposed; E11.22 Type 2 diabetes mellitus with diabetic chronic kidney disease; N18.3 Chronic kidney disease, stage 3 (moderate); R60.1 Generalized edema; I83.009 Varicose veins of unspecified lower extremity with ulcer of unspecified site; G89.29 Other chronic pain; E87.6 Hypokalemia; E66.9 Obesity, unspecified; F41.9 Anxiety disorder, unspecified; E61.1 Iron deficiency; I87.2 Venous insufficiency (chronic) (peripheral); I89.0 Lymphedema, not elsewhere classified; Z79.01 Long term (current) use of anticoagulants; Z93.3 Colostomy status; Z90.710 Acquired absence of both cervix and uterus; Z86.711 Personal history of pulmonary embolism; Z85.820 Personal history of malignant melanoma of skin; Z85.43 Personal history of malignant neoplasm of ovary; Z86.718 Personal history of other venous thrombosis and embolism; Z92.3 Personal history of irradiation; J45.909 Unspecified asthma, uncomplicated
CPT/HCPCS: 36415; 71045; 80048; 80053; 80202; 82962; 83540; 83550; 83605; 83735; 84443; 85025; 85610; 85730; 87040; 93005; 93306; 97802; 97803; 99285; J7040; J7050; Q9957; A4216; J1940; J2405; J2916

== ENCOUNTER 2020-01-19 08:10 | Outpatient (RCR) | payer MEDICARE, SELFPAY ==
[2020-01-13 18:56] VITALS: BMI 43.1
[2020-01-18 00:33] VITALS: BP 116/80; PULSE 101; RESP 16; TEMP 36.2
== END 2020-02-17 23:59 ==
LOC: WC 08:10
PROVIDERS: PCP Family Medicine; Visit Provider Family Medicine
DX: Z09 Encounter for follow-up examination after completed treatment for conditions other than malignant neoplasm (principal)

== ENCOUNTER 2020-01-30 10:14 | Observation (INO) | payer MEDICARE, SELFPAY ==
[2020-01-13 18:56] VITALS: BMI 43.1
[2020-01-30 10:14] VITALS: BP 124/79; PULSE 91; PULSE 95; RESP 17; TEMP 36.8; O2SAT 97; O2SAT 98; BMI 40.3
--- NOTE | 2020-01-30 10:17 | CT_ITS ---
STUDY: CT ABDOMEN AND PELVIS WITHOUT CONTRAST REASON FOR EXAM: Female, 74 years old. SBO, N/V, ABD PAIN, DB, HX-OVARIAN CA, KALIE G-PARTIAL HYSTERECTOMY, CARPAL TUNNEL, GB, R HIP, L KNEE RADIATION DOSAGE (If Supplied By Facility): CTDIvol = ( 29.06 ) mGy, DLP = ( 1394.02 ) mGycm TECHNIQUE: Transaxial images were obtained from the dome of the diaphragm to the symphysis pubis without oral contrast, and without intravenous contrast. Sagittal and coronal images were reconstructed. Individualized dose optimization techniques were used for this CT. COMPARISON: 2015 FINDINGS: There are chronic interstitial fibrotic changes of the lung bases. The visualized portions of the heart are within normal limits. Normal liver. There are surgical clips in the gallbladder fossa consistent with a prior cholecystectomy. Normal spleen. Normal pancreas. Normal bilateral adrenal glands. No obstructive uropathy, there are bilateral nonobstructing renal stones present largest on the right measures 8 mm, on the left 1 cm. Normal visualized stomach. Fluid-filled small and large bowel loops suggest diffuse gastroenteritis.. The appendix is visualized and appears normal. Appendix best seen on coronal reconstructed image 53 There is diffuse atherosclerotic calcification of the abdominal aorta, without a demonstrated aneurysm. There is an IVC filter in place. Normal retroperitoneum. Normal urinary bladder. There is absence of the uterus consistent with a prior hysterectomy. There is a large midline ventral hernia containing multiple bowel loops without evidence of incarceration. No evidence of ileus or obstruction. There are diffuse degenerative changes of the visualized lumbar spine, and pelvis. Replaced right hip joint free of complication CT/Abdomen/Pelvis without Cont IMPRESSION: Large midline ventral hernia containing multiple bowel loops, there is no evidence of acute inflammation, ileus or obstruction. No obstructive uropathy, bilateral nonobstructing renal stones. Normal appendix visualized Extensive degenerative bony changes Chronic interstitial changes in the lung bases. Electronically Signed: Nabil Vargas MD at 11:50 EDT , Service support ,
--- NOTE | 2020-01-30 10:20 | ED.VIS.GEN ---
History of Present Illness Chief Complaint: Nausea/Vomiting Informant: Patient Onset: Yesterday Context: Gradual Onset Timing: Continuous Current Severity: Moderate Maximum Severity: Severe Narrative: The patient is a 74-year-old female with medical history significant for prior ovarian cancer with resulting ostomy in 2016, malignant melanoma with metastasis to the abdomen, anasarca, CHF, and recurrent cellulitis who presents to the emergency department nausea, vomiting, abdominal pain. The patient states her symptoms began yesterday. She states she had dull ache in her mid abdomen. She states that shortly thereafter, she ate some [employer]. She states it seemed to make the pain worse. She had multiple bouts of emesis overnight. She states it was worse this morning. She did try her home nausea medication with little relief. She does states she has had decreased output in her ostomy. She denies any fevers or chills. She denies any shortness of breath. She is on chemo every 2 weeks. Prior similar symptoms: No Recent Illness/Hospitalization: Yes Past Medical History - Allergies and Home Meds Allergies/Adverse Reactions: Allergies clindamycin Allergy (Verified 01/30/20 10:20) Other iodine Allergy (Verified 01/30/20 10:20) rash/incoherent meperidine HCl [From Demerol] Allergy (Verified 01/30/20 10:20) Nausea/vomiting/diarrhea Penicillins Allergy (Verified 01/30/20 10:20) Itching/hives adhesive tape Adverse Reaction (Verified 01/30/20 10:20) blisters BLISTERS aspirin Adverse Reaction (Verified 01/30/20 10:20) nosebleeds diazepam [From Valium] Adverse Reaction (Verified 01/30/20 10:20) Nausea/Vom/Diarrhea egg Adverse Reaction (Verified 01/30/20 10:20) Diarrhea levofloxacin [From Levaquin] Adverse Reaction (Verified 01/30/20 10:20) Vomiting methadone Adverse Reaction (Verified 01/30/20 10:20) Upset Stomach morphine Adverse Reaction (Verified 01/30/20 10:20) Nausea/Vom/Diarrhea sulfamethoxazole [From Bactrim] Adverse Reaction (Verified 01/30/20 10:20) Nausea/Vom/Diarrhea trimethoprim [From Bactrim] Adverse Reaction (Verified 01/30/20 10:20) Nausea/Vom/Diarrhea Primary Care Physician: Chente Daigle MD [Primary Care Provider] - Prior records reviewed: Yes Past Medical History: - - History of ovarian cancer, history of malignant melanoma with metastasis, anasarca, CHF Surgical History: cholecystectomy, hysterectomy - For uterine fibroids, total hip arthroplasty - Right, total knee arthroplasty - Left, - - Surgery for bilateral carpal tunnel syndrome. Resection of ovarian cancer at [facility] in 2016, debridement of the abdominal wall with wound closure by Dr. Garza in June 2015 Smoking Status: Never smoker - Family History Maternal Family History: Reports: No pertinent history, - - no cancer Paternal Family History: Reports: No pertinent history Review of Systems General: Denies: Chills, Fever, Sweats Eyes: Denies: Visual changes - bilaterally, Diplopia ENT: Denies: Rhinorrhea, Sore throat Cardiovascular: Denies: Chest pain, Palpitations Respiratory: Denies: Dyspnea, Cough, Dyspnea on exertion Gastrointestinal: Reports: Abdominal pain, Nausea, Vomiting. Denies: Diarrhea, Melena, Hematochezia Genitourinary: Denies: Dysuria, Hematuria, Frequency Musculoskeletal: Denies: Back pain, Extremity Pain Skin: Denies: Rash, Wounds Neurological: Denies: Headache, Weakness, Numbness Physical Exam Inital Vital Signs reviewed: Yes General: Well nourished, Well developed, No Acute Distress Head: Normocephalic, Atraumatic Eyes: Perrl, EOMI ENT: Moist mucous membranes, No rhinorrhea Neck: Supple, Nontender Cardiovascular: Regular rate, Regular rhythm, No murmurs Respiratory: No distress, CTA bilaterally, Chest nontender Abdomen: Soft, Normal bowel sounds, Tender. Negative for: Guarding, Rebound tenderness Back: Nontender, Normal Inspection Extremities: Nontender, No edema Skin: Normal color, No rash Neurological: Alert, Oriented x3, Cranial nerves II-XII grossly intact, Normal Strength, Normal Sensation Psychological: Normal affect, Normal Mood Diagnostic/Tx/Re-eval Clinical Impression(s) from Imaging Studies Abdomen/Pelvis CT 01/30/20 10:17 IMPRESSION: Large midline ventral hernia containing multiple bowel loops, there is no evidence of acute inflammation, ileus or obstruction. No obstructive uropathy, bilateral nonobstructing renal stones. Normal appendix visualized Extensive degenerative bony changes Chronic interstitial changes in the lung bases. Electronically Signed: Nabil Vargas MD at 11:50 EDT , Service support , Clinical Impression(s) from Imaging Studies Abdomen/Pelvis CT 01/30/20 10:17 IMPRESSION: Large midline ventral hernia containing multiple bowel loops, there is no evidence of acute inflammation, ileus or obstruction. No obstructive uropathy, bilateral nonobstructing renal stones. Normal appendix visualized Extensive degenerative bony changes Chronic interstitial changes in the lung bases. Electronically Signed: Nabil Vargas MD at 11:50 EDT , Service support , - Medical Decision Making The patient presents with nausea and vomiting. She does have air and stool within her ostomy. She does have parastomal hernia which is not tender to palpation. Metabolic work-up was pursued. She is mildly hypokalemic. Her labs are otherwise at her baseline. Patient underwent CT imaging. It does show diffuse dilation of both the large and small bowel consistent with a gastroenteritis. Her lactic acid is normal. Given her persistent nausea and symptoms, I do feel that she would benefit from observation. Her potassium will be replaced. She was discussed with the hospitalist. Impression 1. Nausea vomiting 2. Dehydration 3. Hypokalemia 4. History of melanoma on active chemo ED Disposition - Plan for ED Patient: Referrals: Chente Daigle MD [Primary Care Provider] -
[2020-01-30 10:40] LABS: Absolute Lymphocyte Count 0.35 X10^3/uL (0.83-4.51); Absolute Neutrophil Count 4.1 X10^3/uL (2.0-7.7); Basophil# 0.01 X10^3/uL; Basophil% 0.2 % (0-1); Hematocrit 34.5 % (37-47); Hemoglobin 10.3 g/dL (12.0-15.0); Lymphocyte # 0.35 X10^3/ul (4.0); Lymphocyte % 7.4 % (19-41); Mean Corp Hgb Conc 29.9 g/dL (32-36); Mean Corpuscular Hgb 26.6 pg (27.0-32.0); Mean Corpuscular Volume 89.1 fL (81-99); Mean Platelet Vol. 11.3 fl (6.2-12.0); Monocyte# 0.24 X10^3/uL; NRBC Flagged by Analyzer 0 % (0-5); Neutrophil # 4.13 X10^3/uL (2.7-7.7); Neutrophil % 86.8 % (47-70); POSITIVE DIFFERENTIAL YES; Platelet Count 180 K/mm3 (150-450); RBC Distribution Width CV 19.4 % (11.6-14.6); RBC Distribution Width SD 63.1 fl (35.1-43.9); Red Blood Count 3.87 M/mm3 (4.2-5.4); White Blood Count 4.8 K/mm3 (4.4-11.0)
[2020-01-30] MEDS: 0.9% Normal Saline 1,000 ML 125 ML IV ×2 (10:41→18:52)
[2020-01-30] MEDS: fentaNYL 100 MCG/2 ML Ampul 25 MCG IV (10:41)
[2020-01-30] MEDS: Ondansetron 4 MG/2 ML Vial IV (10:42)
[2020-01-30 10:44] LABS: Differential Indicated SCAN CRITERIA MET
[2020-01-30 11:03] LABS: BUN 32 mg/dL (7-18); Creatinine, Serum 1.58 mg/dL (0.55-1.02); Glucose 225 mg/dL (74-106)
[2020-01-30 11:04] LABS: ALB/GLOB Ratio 0.5 RATIO (0.9-2.4); AST(SGOT) 13 U/L (15-37); Alanine Aminotransfer ALT/SGPT 18 U/L (13-56); Albumin, Serum 2.4 g/dL (3.2-5.0); Alkaline Phosphatase 110 U/L (45-117); Anion Gap 7 (5-15); BUN/Creat Ratio 20.3 RATIO (10-20); Calcium,Total 9.4 mg/dL (8.5-10.1); Chloride 104 mmol/L (98-107); EST Glomerular Filtration Rate 34 mL/min (>60); Est Glom Filt Rate - Afr Amer 41 mL/min (>60); Estimated Creatinine Clearance 44.68 ml/min; Globulin 5.1 g/dL (2.2-4.2); Lipase 212 U/L (73-393); Potassium 3.1 mmol/L (3.5-5.1); Protein, Total 7.5 g/dL (6.4-8.2); Sodium Level 141 mmol/L (136-145)
[2020-01-30 11:12] LABS: Differential Comment SCANNED
[2020-01-30 11:13] LABS: Platelet Estimate ADEQUATE (ADEQ); Platelet Morphology CLUMPED
[2020-01-30 11:14] LABS: Lactic Acid 1.7 mmol/L (0.4-1.9)
--- NOTE | 2020-01-30 12:06 | HP.PCM_ITS ---
History of Present Illness The patient is a 74 year old F [] Past Medical History Past Medical History (Chronic Problems): Chronic Problems Venous ulcer of right lower extremity without varicose veins (Chronic) Multiple thyroid nodules (Chronic) Thyromegaly (Chronic) Bilateral lower extremity edema (Chronic) Lymphedema of both lower extremities (Chronic) Melanoma (Chronic) Asthma (Chronic) Reported, severity unknown History of DVT (deep vein thrombosis) (Chronic) History of pulmonary embolism (Chronic) Type II diabetes mellitus (Chronic) Cancer of ovary (Chronic) Anemia (Chronic) Venous insufficiency (Chronic) Poor dentition (Chronic) Allergies clindamycin Allergy (Verified 01/30/20 10:20) Other iodine Allergy (Verified 01/30/20 10:20) rash/incoherent meperidine HCl [From Demerol] Allergy (Verified 01/30/20 10:20) Nausea/vomiting/diarrhea Penicillins Allergy (Verified 01/30/20 10:20) Itching/hives adhesive tape Adverse Reaction (Verified 01/30/20 10:20) blisters BLISTERS aspirin Adverse Reaction (Verified 01/30/20 10:20) nosebleeds diazepam [From Valium] Adverse Reaction (Verified 01/30/20 10:20) Nausea/Vom/Diarrhea egg Adverse Reaction (Verified 01/30/20 10:20) Diarrhea levofloxacin [From Levaquin] Adverse Reaction (Verified 01/30/20 10:20) Vomiting methadone Adverse Reaction (Verified 01/30/20 10:20) Upset Stomach morphine Adverse Reaction (Verified 01/30/20 10:20) Nausea/Vom/Diarrhea sulfamethoxazole [From Bactrim] Adverse Reaction (Verified 01/30/20 10:20) Nausea/Vom/Diarrhea trimethoprim [From Bactrim] Adverse Reaction (Verified 01/30/20 10:20) Nausea/Vom/Diarrhea Home Medications: Ambulatory Orders Medication Instructions Recorded Cyanocobalamin [Vitamin B12] 1,000 mcg PO DAILY@0800 05/29/15 cycloBENZAPRine HCl [Flexeril] 10 mg PO QHS 05/29/15 metFORMIN HCl [Glucophage] 1,000 mg PO BIDCM 05/29/15 Apixaban [Eliquis] 2.5 mg PO BID 06/12/15 proMETHazine tablet [Phenergan 25 mg PO 4X/DAY PRN PRN #20 tablet 07/20/15 tablet] Albuterol IH (ProAir) [Proair Hfa] 2 puff INHALATION Q6H PRN PRN 05/27/16 Ondansetron HCl [Zofran] 8 mg PO TID PRN PRN 05/27/16 Oxycodone HCl [Oxycodone HCl ER] 10 mg PO TID 12/25/16 Cholecalciferol (VIT D3) [Vitamin 2,000 unit PO DAILY 04/01/18 D3] Ascorbic Acid [C-1000 with Kelley 500 mg PO DAILY 01/12/19 Hips] DiphenhydrAMINE [Benadryl] 25 mg PO BID 01/12/19 Lorazepam [Ativan] 0.25 - 0.5 mg PO Q6H PRN PRN 01/12/19 Brimonidine Tartrate 0.2% 1 drp EACH EYE BID 04/22/19 [Brimonidine 0.2% 5Ml Bottle] Cetirizine HCl 10 mg PO DAILY PRN 04/22/19 Difluprednate [Durezol] 1 drp EACH EYE 04/22/19 Nivolumab [Opdivo] 240 mg IV .COMPLEX 04/22/19 Oxycodone [Oxyir] 5 mg PO PRN PRN 04/22/19 Hydrocortisone [Cortef] 10 mg PO BID 01/15/20 Acetaminophen [Tylenol Tablet] 650 mg PO Q6H PRN PRN tab 01/16/20 Potassium Chloride 20 meq PO BID #120 tablet.er 01/16/20 Torsemide [Demadex] 40 mg PO BID #120 tab 01/16/20 Surgical History: cholecystectomy, hysterectomy - For uterine fibroids, total hip arthroplasty - Right, total knee arthroplasty - Left, - - Surgery for bilateral carpal tunnel syndrome. Resection of ovarian cancer at [facility] in 2015, debridement of the abdominal wall with wound closure by Dr. Garza in June 2015 Psychiatric History: No pertinent psych hx [employer] History: ovarian cancer, uterine fibroids Smoking Status: Never smoker - *Family History Maternal History Items: No pertinent history, - - no cancer Paternal History Items: No pertinent history - Physical Exam Vitals/I&O's: Vital Signs Temp Pulse Resp BP Pulse Ox 98.3 F 95 17 124/79 H 98 01/30/20 10:14 01/30/20 10:14 01/30/20 10:14 01/30/20 10:14 01/30/20 10:14 Oxygen Delivery Method Room Air Weight: 199 lb 11.821 oz Body Mass Index (BMI) 40.3 Finger Stick Blood Glucose 210 Laboratory Results 01/30/20 10:29: WBC 4.8, RBC 3.87 L, Hgb 10.3 L, Hct 34.5 L, MCV 89.1, MCH 26.6 L, MCHC 29.9 L, RDW Std Deviation 63.1 H, RDW Coeff of Zuri 19.4 H, Plt Count 180, MPV 11.3, Immature Gran % (Auto) 0.600, Neut % (Auto) 86.8 H, Lymph % (Auto) 7.4 L, [place] % (Auto) 5.0, Eos % (Auto) 0.0, Baso % (Auto) 0.2, Absolute Neuts (auto) 4.1, Absolute Lymphs (auto) 0.35 L, Nucleated RBC % 0, Differential Comment SCANNED, Platelet Estimate ADEQUATE, Plt Morphology Comment CLUMPED 01/30/20 10:29: Sodium 141, Potassium 3.1 L, Chloride 104, Carbon Dioxide 30.0, Anion Gap 7, BUN 32 H, Creatinine 1.58 H, Estim Creat Clear Calc 44.68, Est GFR (MDRD) Af Amer 41 L, Est GFR (MDRD) Non-Af 34 L, BUN/Creatinine Ratio 20.3 H, Glucose 225 H, Calcium 9.4, Total Bilirubin 0.50, AST 13 L, ALT 18, Alkaline Phosphatase 110, Total Protein 7.5, Albumin 2.4 L, Globulin 5.1 H, Albumin/Globulin Ratio 0.5 L, Lipase 212 01/30/20 10:29: Lactic Acid 1.7 Current Medications Sodium Chloride () 1,000 mls @ 125 mls/hr IV .Q8H [place] Last Admin: 01/30/20 10:41 Dose: 125 mls/hr Documented by: Assessment/Plan All Active Problems Anasarca (Acute) Cellulitis of right lower leg (Acute) Cellulitis (Acute) Allergic drug reaction (Resolved) Redness of the lower extremities (Acute) Acute exacerbation of extrinsic asthma (Resolved) Abdominal wall ulcer (Resolved) Acute renal insufficiency (Resolved) CSD (cat scratch disease) (Resolved) Cellulitis of left lower extremity (Resolved) Cellulitis of right lower extremity (Resolved) Colitis (Resolved) Dehydration (Resolved) Dental infection (Resolved) Left leg cellulitis (Resolved) Sepsis (Resolved) Sepsis (Resolved) Severe sepsis (Resolved) Surgical wound dehiscence (Resolved) Ulcer of right lower extremity with fat layer exposed (Resolved)
[2020-01-30 12:49] LABS: Phosphorus 3.2 mg/dL (2.5-4.9)
[2020-01-30 12:51] VITALS: BP 99/55; PULSE 76; PULSE 78; RESP 18; TEMP 36.7; O2SAT 97
--- NOTE | 2020-01-30 12:58 | NURSING ---
320 GREG DEHYDRATION,NAUSEA VOMITING
[2020-01-30 13:17] LABS: Magnesium 1.8 mg/dL (1.6-2.6)
[2020-01-30 13:55] VITALS: BP 101/56; PULSE 111; RESP 16; TEMP 36.6; O2SAT 100
[2020-01-30 13:58] LABS: Bacteria 0 SEEN /hpf (None Seen); Mucous, Urine 0 SEEN /hpf (<or=2+); Red Blood Cells-Urine 0 SEEN /hpf (0-5); Squamous Epithelial Cells - UA 0 SEEN /hpf (5-10); White Blood Cells 0 SEEN /hpf (0-5)
[2020-01-30 14:03] LABS: Color, Urine Yellow (Yellow); Glucose, Dipstick 50 mg/dl (Normal); Ketone-Dipstick 5 mg/dl (Negative); Leukocyte Esterase-Dipstick 25 /ul (Negative); Nitrite-Dipstick Negative (Negative); Occult Blood-Urine 10 /ul (Negative); Protein-Dipstick 30 mg/dl (Negative); Specific Gravity, Urine 1.015 (1.002-1.030); Urine Bilirubin Dipstick Negative (Negative); Urine Clarity Clear (Clear); Urine Urobilinogen Normal (Normal)
[2020-01-30 14:07] VITALS: BMI 38.9
[2020-01-30 14:14] VITALS: BMI 38.9
--- NOTE | 2020-01-30 14:18 | PCM.HP.STD ---
<Bhargavi Bacon DINKEY ENGINE OPERATOR - Last Filed: 01/30/20 14:32> Problem List (1) Cat bite of left lower leg Status: Resolved Qualifiers: Encounter type: subsequent encounter (2) Venous ulcer of right lower extremity without varicose veins Status: Chronic (3) Multiple thyroid nodules Status: Chronic (4) Thyromegaly Status: Chronic (5) Lymphedema of both lower extremities Status: Chronic (6) Melanoma Status: Chronic (7) Asthma Status: Chronic Comment: Reported, severity unknown (8) History of DVT (deep vein thrombosis) Status: Chronic (9) History of pulmonary embolism Status: Chronic (10) Type II diabetes mellitus Status: Chronic Qualifiers: 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 The patient is a 74 year old F who presents emergency room due to nausea and vomiting. Patient reports this has been ongoing over the past 24 hours. She complains of mild abdominal aching. Denies significant abdominal pain. She has a colostomy in place and denies significant changes with output. Denies fever, chills. Denies other associated symptoms or complaints. Patient is on chemotherapy for metastatic melanoma. Last chemo treatment 1 week ago. Patient states she has been on chemo for the past 4 years. She intermittently has nausea and vomiting following chemotherapy treatment. She has a past medical history of ovarian cancer, chronic venous insufficiency/chronic lymphedema, active metastatic melanoma, chronic iron deficiency anemia, obesity, history of DVT/PE, chronic kidney disease stage III, type 2 diabetes mellitus. Past Medical History Past Medical History (Chronic Problems): Chronic Problems Venous ulcer of right lower extremity without varicose veins (Chronic) Multiple thyroid nodules (Chronic) Thyromegaly (Chronic) Lymphedema of both lower extremities (Chronic) Melanoma (Chronic) Asthma (Chronic) Reported, severity unknown History of DVT (deep vein thrombosis) (Chronic) History of pulmonary embolism (Chronic) Type II diabetes mellitus (Chronic) Cancer of ovary (Chronic) Anemia (Chronic) Venous insufficiency (Chronic) Poor dentition (Chronic) Allergies clindamycin Allergy (Verified 01/30/20 10:20) Other iodine Allergy (Verified 01/30/20 10:20) rash/incoherent meperidine HCl [From Demerol] Allergy (Verified 01/30/20 10:20) Nausea/vomiting/diarrhea Penicillins Allergy (Verified 01/30/20 10:20) Itching/hives adhesive tape Adverse Reaction (Verified 01/30/20 10:20) blisters BLISTERS aspirin Adverse Reaction (Verified 01/30/20 10:20) nosebleeds diazepam [From Valium] Adverse Reaction (Verified 01/30/20 10:20) Nausea/Vom/Diarrhea egg Adverse Reaction (Verified 01/30/20 10:20) Diarrhea levofloxacin [From Levaquin] Adverse Reaction (Verified 01/30/20 10:20) Vomiting methadone Adverse Reaction (Verified 01/30/20 10:20) Upset Stomach morphine Adverse Reaction (Verified 01/30/20 10:20) Nausea/Vom/Diarrhea sulfamethoxazole [From Bactrim] Adverse Reaction (Verified 01/30/20 10:20) Nausea/Vom/Diarrhea trimethoprim [From Bactrim] Adverse Reaction (Verified 01/30/20 10:20) Nausea/Vom/Diarrhea Home Medications: Ambulatory Orders Medication Instructions Recorded Cyanocobalamin [Vitamin B12] 1,000 mcg PO DAILY@0800 05/29/15 cycloBENZAPRine HCl [Flexeril] 10 mg PO QHS 05/29/15 metFORMIN HCl [Glucophage] 1,000 mg PO BIDCM 05/29/15 Apixaban [Eliquis] 2.5 mg PO BID 06/12/15 proMETHazine tablet [Phenergan 25 mg PO 4X/DAY PRN PRN #20 tablet 07/20/15 tablet] Albuterol IH (ProAir) [Proair Hfa] 2 puff INHALATION Q6H PRN PRN 05/27/16 Ondansetron HCl [Zofran] 8 mg PO TID PRN PRN 05/27/16 Oxycodone HCl [Oxycodone HCl ER] 10 mg PO TID 12/25/16 Cholecalciferol (VIT D3) [Vitamin 2,000 unit PO DAILY 04/01/18 D3] Ascorbic Acid [C-1000 with Kelley 500 mg PO DAILY 01/12/19 Hips] DiphenhydrAMINE [Benadryl] 25 mg PO BID 01/12/19 Lorazepam [Ativan] 0.25 - 0.5 mg PO Q6H PRN PRN 01/12/19 Brimonidine Tartrate 0.2% 1 drp EACH EYE BID 04/22/19 [Brimonidine 0.2% 5Ml Bottle] Cetirizine HCl 10 mg PO DAILY PRN 04/22/19 Difluprednate [Durezol] 1 drp EACH EYE 04/22/19 Nivolumab [Opdivo] 240 mg IV .COMPLEX 04/22/19 Oxycodone [Oxyir] 5 mg PO PRN PRN 04/22/19 Hydrocortisone [Cortef] 10 mg PO BID 01/15/20 Acetaminophen [Tylenol Tablet] 650 mg PO Q6H PRN PRN tab 01/16/20 Potassium Chloride 20 meq PO BID 01/30/20 Torsemide [Demadex] 40 mg PO BID 01/30/20 Surgical History: cholecystectomy, hysterectomy - For uterine fibroids, total hip arthroplasty - Right, total knee arthroplasty - Left, - - Surgery for bilateral carpal tunnel syndrome. Resection of ovarian cancer at [facility] in 2015, debridement of the abdominal wall with wound closure by Dr. 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 Paternal History Items: - - Denies known paternal medical history including cardiac history. Review of Systems Constitutional: Reports: Fatigue. Denies: Chills, Fever, Malaise, Weight Change HEENT: Denies: Head Aches, Sinus Congestion, Sinus Drainage Cardiovascular: Denies: Chest Pain, Palpitations Respiratory: Denies: Cough, Shortness of breath at rest, Sputum production Gastrointestinal: Reports: Abdominal Pain, Nausea, Vomiting. Denies: Constipation, Diarrhea Genitourinary: Denies: Dysuria Musculoskeletal: Denies: Joint Pain, Joint Tenderness Skin: Denies: Rash, Wounds Neurological: Denies: Numbness, Tingling, Focal weakness Psychiatric: Reports: Anxiety. Denies: Depression, Homicidal Ideations, Suicidal Ideations Hematologic/ Lymphatic: Denies: Easy Bruising, Easy Bleeding VTE Information - Inpt Only VTE Present on Admission: No VTE Mechan Device Prophylaxis: None VTE Pharm Prophylaxis ordered?: Yes - Physical Exam Vitals/I&O's: Vital Signs Temp Pulse Resp BP Pulse Ox 97.8 F 111 H 16 101/56 L 100 01/30/20 13:55 01/30/20 13:55 01/30/20 13:55 01/30/20 13:55 01/30/20 13:55 Oxygen Delivery Method Room Air Weight: 193 lb Body Mass Index (BMI) 38.9 Finger Stick Blood Glucose 210 General: Alert, Oriented x3, Cooperative HEENT: Atraumatic, PERRLA, EOMI, Normocephalic Oral: Dry Mucosa Neck: Supple, No JVD, Negative Carotid Bruits Lungs: Clear to auscultation, Normal air movement Cardiovascular: Regular rate, No murmurs Abdomen: Bowel Sounds Present, Soft, Non Tender, Non-Distended, - - Colostomy intact Extremities: No clubbing, No cyanosis, Capillary Refill Less than 3 Seconds, Edema - Chronic lower extremity lymphedema Skin: No rashes, No breakdown Musculoskeletal: No Tenderness to Palpation of Joints or Extremities Neurological: Cranial nerves II-XII grossly intact, Neuro grossly intact Psych/Mental Status: Normal Affect, Appropriate Laboratory Results 01/30/20 10:29: WBC 4.8, RBC 3.87 L, Hgb 10.3 L, Hct 34.5 L, MCV 89.1, MCH 26.6 L, MCHC 29.9 L, RDW Std Deviation 63.1 H, RDW Coeff of Zuri 19.4 H, Plt Count 180, MPV 11.3, Immature Gran % (Auto) 0.600, Neut % (Auto) 86.8 H, Lymph % (Auto) 7.4 L, [place] % (Auto) 5.0, Eos % (Auto) 0.0, Baso % (Auto) 0.2, Absolute Neuts (auto) 4.1, Absolute Lymphs (auto) 0.35 L, Nucleated RBC % 0, Differential Comment SCANNED, Platelet Estimate ADEQUATE, Plt Morphology Comment CLUMPED 01/30/20 10:29: Sodium 141, Potassium 3.1 L, Chloride 104, Carbon Dioxide 30.0, Anion Gap 7, BUN 32 H, Creatinine 1.58 H, Estim Creat Clear Calc 44.68, Est GFR (MDRD) Af Amer 41 L, Est GFR (MDRD) Non-Af 34 L, BUN/Creatinine Ratio 20.3 H, Glucose 225 H, Calcium 9.4, Total Bilirubin 0.50, AST 13 L, ALT 18, Alkaline Phosphatase 110, Total Protein 7.5, Albumin 2.4 L, Globulin 5.1 H, Albumin/Globulin Ratio 0.5 L, Lipase 212 01/30/20 10:29: Lactic Acid 1.7 01/30/20 10:29: Magnesium 1.8 01/30/20 10:29: Phosphorus 3.2 01/30/20 13:50: Urine Color Yellow, Urine Clarity Clear, Urine pH 6.0, Ur Specific [place] 1.015, Urine Protein 30 H, Urine Glucose (UA) 50 H, Urine Ketones 5 H, Urine Occult Blood 10 H, Urine Nitrite Negative, Urine Bilirubin Negative, Urine Urobilinogen Normal, Ur Leukocyte Esterase 25 H, Urine RBC 0 SEEN, Urine WBC 0 SEEN, Ur Squamous Epith Cells 0 SEEN, Urine Bacteria 0 SEEN, Urine Mucus 0 SEEN Current Medications Acetaminophen (Acetaminophen 325 Mg Tablet) 650 mg PO Q6H PRN PRN PRN Reason: Pain Score 1-10/Temp > 100.7 F Al Hydroxide/Mg Hydroxide (Mag Hydrox/Al Hydrox/Simeth 30 Ml Udc) 30 ml PO Q6H PRN PRN PRN Reason: Gastric Burning Albuterol Sulfate (Albuterol 2.5 Mg/3 Ml Vial.Neb.) 2.5 mg INHALATION Q2H PRN PRN PRN Reason: Shortness of Breath/Wheezing Sodium Chloride () 1,000 mls @ 125 mls/hr IV .Q8H [place] Last Admin: 01/30/20 10:41 Dose: 125 mls/hr Documented by: Sodium Chloride () 250 mls @ 15 mls/hr IV .[id number] PRN PRN Reason: Saline Flush Sodium Chloride () 250 mls @ 15 mls/hr IV .[id number] PRN PRN Reason: Additional IVPB Infusion Melatonin (Melatonin 3 Mg Tablet) 3 mg PO QHS PRN PRN PRN Reason: INSOMNIA Morphine Sulfate (Morphine 2 Mg/Ml Syringe) 2 mg IV Q3H PRN PRN PRN Reason: Pain Score 6-10 Ondansetron HCl (Ondansetron 4 Mg/2 Ml Vial) 4 mg IV Q6H PRN PRN PRN Reason: NAUSEA/VOMITING Oxycodone HCl (Oxycodone 5 Mg Tablet) 5 mg PO Q4H PRN PRN PRN Reason: Pain Score 4-5 Prochlorperazine Edisylate (Prochlorperazine 10 Mg/2 Ml Vial) 5 mg IV Q4H PRN PRN PRN Reason: Breakthrough nausea/vomiting Senna/Docusate Sodium (Senna/Docusate Sodium 1 Tablet) 2 tablet PO BID PRN PRN PRN Reason: Constipation Sodium Chloride (0.9% Saline Lock 10 Ml Syringe) 10 - 40 ml IV UD PRN PRN Reason: SALINE FLUSH Assessment/Plan All Active Problems Cat bite of left lower leg (Resolved) Abdominal wall ulcer (Resolved) Acute renal insufficiency (Resolved) CSD (cat scratch disease) (Resolved) Cellulitis of left lower extremity (Resolved) Cellulitis of right lower extremity (Resolved) Colitis (Resolved) Dehydration (Resolved) Dental infection (Resolved) Left leg cellulitis (Resolved) Sepsis (Resolved) Sepsis (Resolved) Severe sepsis (Resolved) Surgical wound dehiscence (Resolved) Ulcer of right lower extremity with fat layer exposed (Resolved) 1. Intractable nausea, vomiting-suspect secondary to chemotherapy regimen. CT of abdomen and pelvis shows no acute inflammation, ileus or obstruction. IV fluids. As needed antiemetics. Clear liquid diet. PT/OT. 2. Hypokalemia-replace per protocol, trend BMP. 3. Metastatic melanoma-undergoing chemotherapy. Follows with Dr. Estevez. Follows with palliative care as well. 4. Chronic venous insufficiency/chronic lymphedema-STEFANIA wraps bilateral lower extremities. 5. Chronic iron deficiency anemia-stable, trend CBC. 6. Obesity-encouraged diet and lifestyle modification. 7. History of DVT/PE-on Eliquis. 8. Chronic kidney disease stage III-at baseline, trend BMP. 9. Type 2 diabetes mellitus-hold metformin. Accu-Cheks with sliding scale insulin. 10. History of ovarian cancer 11. Anxiety-on as needed Ativan. DVT prophylaxis-Eliquis. This patient was seen by ERVIN Armijo under the supervision of Dr. Charlton. 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 Estevez, last chemotherapy on 01/22/2020 came to ER with persistent nausea and vomiting more than 10 times since yesterday night. Patient had gastric type vomiting and dry heaving. No fever or chills. Patient has colostomy which is not show increased output. Patient also has history of CA ovary for which she had hysterectomy bilateral nephrectomy and part of bowel resection after that she had colostomy which was never reversed. In ED, no fever. Blood pressure was 124/79, 99/55. Significant abnormal labs hemoglobin 10.3, hematocrit 34.5, K3.1, BUN/creatinine 32/1.58, albumin 2.4, A/G ratio 0.5. UA is negative. Patient has significant history of DVT/PE and has an IVC filter and is on Eliquis. Past Medical History Allergies clindamycin Allergy (Verified 01/30/20 10:20) Other iodine Allergy (Verified 01/30/20 10:20) rash/incoherent meperidine HCl [From Demerol] Allergy (Verified 01/30/20 10:20) Nausea/vomiting/diarrhea Penicillins Allergy (Verified 01/30/20 10:20) Itching/hives adhesive tape Adverse Reaction (Verified 01/30/20 10:20) blisters BLISTERS aspirin Adverse Reaction (Verified 01/30/20 10:20) nosebleeds diazepam [From Valium] Adverse Reaction (Verified 01/30/20 10:20) Nausea/Vom/Diarrhea egg Adverse Reaction (Verified 01/30/20 10:20) Diarrhea levofloxacin [From Levaquin] Adverse Reaction (Verified 01/30/20 10:20) Vomiting methadone Adverse Reaction (Verified 01/30/20 10:20) Upset Stomach morphine Adverse Reaction (Verified 01/30/20 10:20) Nausea/Vom/Diarrhea sulfamethoxazole [From Bactrim] Adverse Reaction (Verified 01/30/20 10:20) Nausea/Vom/Diarrhea trimethoprim [From Bactrim] Adverse Reaction (Verified 10/13/20 10:20) Nausea/Vom/Diarrhea Objective: Physical exam General: Alert, Oriented x3, Cooperative HEENT: Atraumatic, PERRLA, EOMI, Normocephalic Oral: No Gingival or Mucosal Lesions/ Ulcerations Neck: Supple, No JVD, Negative Carotid Bruits Lungs: Air entry diminished in bilateral lung bases. No crepitation/rhonchi Cardiovascular: Regular rate, Regular Rhythm, Normal S1, Normal S2, No murmurs Abdomen: Bowel Sounds Present, Soft, Non Tender, Non-Distended. Colostomy present. Small liquid bilious output since last night. : No renal angle tenderness. No suprapubic tenderness. Extremities: Bilateral lower extremity lymphedema and scab present. Capillary Refill Less than 3 Seconds Skin: No rashes, No breakdown. Multiple superficial scabs present. Musculoskeletal: No Tenderness to Palpation of Joints or Extremities Neurological: Cranial nerves II-XII grossly intact, Deep Tendon Reflexes 2+/4 and Symmetrical, Neuro grossly intact Psych/Mental Status: Normal Affect, Appropriate. - Physical Exam Vitals/I&O's: Vital Signs Temp Pulse Resp BP Pulse Ox 97.8 F 111 H 16 101/56 L 100 01/30/20 13:55 01/30/20 13:55 01/30/20 13:55 01/30/20 13:55 01/30/20 13:55 Oxygen Delivery Method Room Air Weight: 193 lb Body Mass Index (BMI) 38.9 Finger Stick Blood Glucose 210 Laboratory Results 01/30/20 10:29: WBC 4.8, RBC 3.87 L, Hgb 10.3 L, Hct 34.5 L, MCV 89.1, MCH 26.6 L, MCHC 29.9 L, RDW Std Deviation 63.1 H, RDW Coeff of Zuri 19.4 H, Plt Count 180, MPV 11.3, Immature Gran % (Auto) 0.600, Neut % (Auto) 86.8 H, Lymph % (Auto) 7.4 L, [place] % (Auto) 5.0, Eos % (Auto) 0.0, Baso % (Auto) 0.2, Absolute Neuts (auto) 4.1, Absolute Lymphs (auto) 0.35 L, Nucleated RBC % 0, Differential Comment SCANNED, Platelet Estimate ADEQUATE, Plt Morphology Comment CLUMPED 01/30/20 10:29: Sodium 141, Potassium 3.1 L, Chloride 104, Carbon Dioxide 30.0, Anion Gap 7, BUN 32 H, Creatinine 1.58 H, Estim Creat Clear Calc 44.68, Est GFR (MDRD) Af Amer 41 L, Est GFR (MDRD) Non-Af 34 L, BUN/Creatinine Ratio 20.3 H, Glucose 225 H, Calcium 9.4, Total Bilirubin 0.50, AST 13 L, ALT 18, Alkaline Phosphatase 110, Total Protein 7.5, Albumin 2.4 L, Globulin 5.1 H, Albumin/Globulin Ratio 0.5 L, Lipase 212 01/30/20 10:29: Lactic Acid 1.7 01/30/20 10:29: Magnesium 1.8 01/30/20 10:29: Phosphorus 3.2 01/30/20 13:50: Urine Color Yellow, Urine Clarity Clear, Urine pH 6.0, Ur Specific [place] 1.015, Urine Protein 30 H, Urine Glucose (UA) 50 H, Urine Ketones 5 H, Urine Occult Blood 10 H, Urine Nitrite Negative, Urine Bilirubin Negative, Urine Urobilinogen Normal, Ur Leukocyte Esterase 25 H, Urine RBC 0 SEEN, Urine WBC 0 SEEN, Ur Squamous Epith Cells 0 SEEN, Urine Bacteria 0 SEEN, Urine Mucus 0 SEEN Current Medications Acetaminophen (Acetaminophen 325 Mg Tablet) 650 mg PO Q6H PRN PRN PRN Reason: Pain Score 1-10/Temp > 100.7 F Al Hydroxide/Mg Hydroxide (Mag Hydrox/Al Hydrox/Simeth 30 Ml Udc) 30 ml PO Q6H PRN PRN PRN Reason: Gastric Burning Albuterol Sulfate (Albuterol 2.5 Mg/3 Ml Vial.Neb.) 2.5 mg INHALATION Q2H PRN PRN PRN Reason: Shortness of Breath/Wheezing Sodium Chloride () 1,000 mls @ 125 mls/hr IV .Q8H [place] Last Admin: 01/30/20 10:41 Dose: 125 mls/hr Documented by: Sodium Chloride () 250 mls @ 15 mls/hr IV .[id number] PRN PRN Reason: Saline Flush Sodium Chloride () 250 mls @ 15 mls/hr IV .[id number] PRN PRN Reason: Additional IVPB Infusion Melatonin (Melatonin 3 Mg Tablet) 3 mg PO QHS PRN PRN PRN Reason: INSOMNIA Morphine Sulfate (Morphine 2 Mg/Ml Syringe) 2 mg IV Q3H PRN PRN PRN Reason: Pain Score 6-10 Ondansetron HCl (Ondansetron 4 Mg/2 Ml Vial) 4 mg IV Q6H PRN PRN PRN Reason: NAUSEA/VOMITING Oxycodone HCl (Oxycodone 5 Mg Tablet) 5 mg PO Q4H PRN PRN PRN Reason: Pain Score 4-5 Prochlorperazine Edisylate (Prochlorperazine 10 Mg/2 Ml Vial) 5 mg IV Q4H PRN PRN PRN Reason: Breakthrough nausea/vomiting Senna/Docusate Sodium (Senna/Docusate Sodium 1 Tablet) 2 tablet PO BID PRN PRN PRN Reason: Constipation Sodium Chloride (0.9% Saline Lock 10 Ml Syringe) 10 - 40 ml IV UD PRN PRN Reason: SALINE FLUSH Assessment/Plan This patient was seen in conjunction with DINKEY ENGINE OPERATORBhargavi. I have independently interviewed and examined the patient and reviewed pertinent history, examination findings, laboratory and plan of management. I have reviewed the note and agree with the documented findings with the few additional points. 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 Patient is getting her interdigitation and potassium replacement. Patient is on nivolumab chemotherapy. IV fluid normal saline total of 2 L. Follow-up electrolytes and kidney function. She was recently discharged on 01/16/2020 after management of anasarca and cellulitis of right lower extremity and chronic venous insufficiency. Patient is on torsemide 40 mg p.o. twice daily along with potassium replacement at home. Hold torsemide today and may resume from tomorrow a.m. Other chronic comorbidities include chronic iron deficiency anemia, DVT/PE on Eliquis, CKD stage III, type 2 diabetes mellitus, anxiety and depression. Home medication reconciliation done. I have discussed my assessment with Bhargavi COOK and orders have been reviewed. Living will/advanced directive/end of life care: Patient does have living will or advanced directive. Her daughter is power of trade mark attorney for health. After discussion of procedures involved with full code, DNR CC arrest and DNR CC, the patient could not make up her mind of either of these. She states she will discuss with her family. Advised to follow-up with palliative care. For practical purposes, we will keep her full code. Patient does want artificial life support including intubation, tube feed, ventilator and/chest compression, central venous catheter, vasopressor and DC shock if needed until patient makes clear decision Total time spent in [id number] encounter in discussion of advanced directive 16 minutes. Inpatient E&M: 61791 Init Hosp L3 Procedures: 67593 Advncd Care Plan 30 Min
--- NOTE | 2020-01-30 15:35 | NURSING ---
wound photo: left lower leg
--- NOTE | 2020-01-30 15:36 | NURSING ---
skin photo: right lower leg
[2020-01-30] MEDS: Furosemide 80 MG Tablet PO (16:59)
[2020-01-30] MEDS: Hydrocortisone 10 MG Tablet 5 MG PO (16:59)
[2020-01-30] MEDS: 0.9% Saline Lock 10 ML Syringe IV (17:00)
[2020-01-30] MEDS: oxyCODONE 5 MG Tablet PO ×2 (17:03→21:11)
[2020-01-30] MEDS: Potassium Chloride 10mEq/100mL 10 MEQ/100 ML IV.SOLN. 100 MEQ IV BOLUS ×2 (17:14→18:18)
[2020-01-30] MEDS: oxyCODONE 5 MG Tablet 10 MG PO (18:52)
[2020-01-30 20:51] VITALS: BP 118/55; PULSE 75; RESP 18; TEMP 36.6; O2SAT 100
[2020-01-30] MEDS: cycloBENZAPRine HCl 10 MG Tablet PO (21:07)
[2020-01-30] MEDS: APIXABAN 2.5 MG TABLET PO (21:07)
[2020-01-30] MEDS: MELATONIN 3 MG TABLET PO (21:11)
[2020-01-30] MEDS: BRIMONIDINE 0.2% 5ML BOTTLE 1 DRP EACH EYE (21:12)
[2020-01-31] MEDS: oxyCODONE 5 MG Tablet PO ×2 (02:48→08:33)
[2020-01-31 03:15] VITALS: BP 126/88; PULSE 71; RESP 18; TEMP 36.4; O2SAT 94
[2020-01-31 05:57] LABS: Absolute Lymphocyte Count 0.69 X10^3/uL (0.83-4.51); Absolute Neutrophil Count 3.8 X10^3/uL (2.0-7.7); Basophil# 0.02 X10^3/uL; Basophil% 0.4 % (0-1); Eosinophil# 0.11 X10^3/uL; Eosinophils% 2.1 % (0-5); Hematocrit 27.4 % (37-47); Hemoglobin 7.8 g/dL (12.0-15.0); Lymphocyte # 0.69 X10^3/ul (4.0); Lymphocyte % 13.4 % (19-41); Mean Corp Hgb Conc 28.5 g/dL (32-36); Mean Corpuscular Hgb 26.2 pg (27.0-32.0); Mean Corpuscular Volume 91.9 fL (81-99); Mean Platelet Vol. 10.2 fl (6.2-12.0); Monocyte# 0.51 X10^3/uL; Monocyte% 9.9 % (0-10); NRBC Flagged by Analyzer 0 % (0-5); Neutrophil # 3.79 X10^3/uL (2.7-7.7); Neutrophil % 73.6 % (47-70); POSITIVE MORPHOLOGY YES; Platelet Count 238 K/mm3 (150-450); RBC Distribution Width CV 19.4 % (11.6-14.6); RBC Distribution Width SD 65.7 fl (35.1-43.9); Red Blood Count 2.98 M/mm3 (4.2-5.4); White Blood Count 5.2 K/mm3 (4.4-11.0)
[2020-01-31] MEDS: oxyCODONE 5 MG Tablet 10 MG PO ×2 (06:01→14:54)
[2020-01-31 06:15] LABS: Differential Indicated SCAN CRITERIA MET
[2020-01-31 06:20] LABS: Anion Gap 5 (5-15); BUN 25 mg/dL (7-18); BUN/Creat Ratio 22.5 RATIO (10-20); Calcium,Total 8.1 mg/dL (8.5-10.1); Chloride 109 mmol/L (98-107); Creatinine, Serum 1.11 mg/dL (0.55-1.02); EST Glomerular Filtration Rate 51 mL/min (>60); Est Glom Filt Rate - Afr Amer 62 mL/min (>60); Estimated Creatinine Clearance 63.67 ml/min; Glucose 103 mg/dL (74-106); Magnesium 1.5 mg/dL (1.6-2.6); Phosphorus 2.5 mg/dL (2.5-4.9); Potassium 3.1 mmol/L (3.5-5.1); Sodium Level 144 mmol/L (136-145)
[2020-01-31 06:30] LABS: Differential Comment SCANNED
[2020-01-31 06:31] LABS: Anisocytosis 1+
[2020-01-31 06:32] LABS: Hypochromasia RARE
[2020-01-31 06:34] LABS: Microcytosis 1+
[2020-01-31 06:44] VITALS: O2SAT 93
[2020-01-31] MEDS: Furosemide 80 MG Tablet PO ×2 (08:29→16:39)
[2020-01-31] MEDS: Cyanocobalamin 500 MCG Tablet 1000 MCG PO (08:29)
[2020-01-31] MEDS: APIXABAN 2.5 MG TABLET PO ×2 (08:29→16:42)
[2020-01-31] MEDS: Ascorbic Acid 500 MG Tablet PO (08:29)
[2020-01-31 08:30] VITALS: BP 113/52; PULSE 69; RESP 16; TEMP 36.3; O2SAT 99
[2020-01-31] MEDS: BRIMONIDINE 0.2% 5ML BOTTLE 1 DRP EACH EYE (08:30)
--- NOTE | 2020-01-31 09:07 | NURSING ---
Ostomy appliance remains intact. pt had just changed the appliance the day before yesterday. will monitor. bilateral lower legs still edematous, but has improved from yesterday.
[2020-01-31] MEDS: Hydrocortisone 10 MG Tablet PO (09:21)
--- NOTE | 2020-01-31 11:15 | PCM.DC ---
- Discharge Diagnoses Current Active Problems: Current Active and Chronic Problems Venous ulcer of right lower extremity without varicose veins (Chronic) Multiple thyroid nodules (Chronic) Thyromegaly (Chronic) Lymphedema of both lower extremities (Chronic) Melanoma (Chronic) Asthma (Chronic) Reported, severity unknown History of DVT (deep vein thrombosis) (Chronic) History of pulmonary embolism (Chronic) Type II diabetes mellitus (Chronic) Cancer of ovary (Chronic) Anemia (Chronic) Venous insufficiency (Chronic) You will use the following diet at home:: Other - Diet as tolerated Discharge Activity: Return to Normal Activity Call your doctor if you observe: Fever of 101 or Higher, Shortness of breath, Dizziness, Fainting spells, Chest pain Allergies/Adverse Reactions: Allergies clindamycin Allergy (Verified 01/30/20 10:20) Other iodine Allergy (Verified 01/30/20 10:20) rash/incoherent meperidine HCl [From Demerol] Allergy (Verified 01/30/20 10:20) Nausea/vomiting/diarrhea Penicillins Allergy (Verified 01/30/20 10:20) Itching/hives adhesive tape Adverse Reaction (Verified 01/30/20 10:20) blisters BLISTERS aspirin Adverse Reaction (Verified 01/30/20 10:20) nosebleeds diazepam [From Valium] Adverse Reaction (Verified 01/30/20 10:20) Nausea/Vom/Diarrhea egg Adverse Reaction (Verified 01/30/20 10:20) Diarrhea levofloxacin [From Levaquin] Adverse Reaction (Verified 01/30/20 10:20) Vomiting methadone Adverse Reaction (Verified 01/30/20 10:20) Upset Stomach morphine Adverse Reaction (Verified 01/30/20 10:20) Nausea/Vom/Diarrhea sulfamethoxazole [From Bactrim] Adverse Reaction (Verified 01/30/20 10:20) Nausea/Vom/Diarrhea trimethoprim [From Bactrim] Adverse Reaction (Verified 01/30/20 10:20) Nausea/Vom/Diarrhea Medications to take at Discharge Cyanocobalamin [Vitamin B12] 1,000 mcg PO DAILY@0800 05/29/15 cycloBENZAPRine HCl [Flexeril] 10 mg PO QHS 05/29/15 metFORMIN HCl [Glucophage] 1,000 mg PO BIDCM 05/29/15 Apixaban [Eliquis] 2.5 mg PO BID 06/12/15 proMETHazine tablet [Phenergan tablet] 25 mg PO 4X/DAY PRN PRN #20 tablet 07/20/15 Albuterol IH (ProAir) [Proair Hfa] 2 puff INHALATION Q6H PRN PRN 05/27/16 Ondansetron HCl [Zofran] 8 mg PO TID PRN PRN 05/27/16 Cholecalciferol (VIT D3) [Vitamin D3] 2,000 unit PO DAILY 04/01/18 Ascorbic Acid [C-1000 with Kelley Hips] 500 mg PO DAILY 01/12/19 DiphenhydrAMINE [Benadryl] 25 mg PO BID 01/12/19 Lorazepam [Ativan] 0.25 - 0.5 mg PO Q6H PRN PRN 01/12/19 Brimonidine Tartrate 0.2% [Brimonidine 0.2% 5Ml Bottle] 1 drp EACH EYE BID 04/22/19 Cetirizine HCl 10 mg PO DAILY PRN 04/22/19 Difluprednate [Durezol] 1 drp EACH EYE 04/22/19 Nivolumab [Opdivo] 240 mg IV .COMPLEX 04/22/19 Oxycodone [Oxyir] 5 mg PO PRN PRN 04/22/19 Hydrocortisone [Cortef] 10 mg PO BID 01/15/20 Acetaminophen [Tylenol Tablet] 650 mg PO Q6H PRN PRN tab 01/16/20 Oxycodone [Oxyfast] 10 mg PO TID 01/30/20 Torsemide [Demadex] 40 mg PO BID 01/30/20 Potassium Chloride [K-Dur] 40 meq PO BIDCM #120 tab 01/31/20 The following prescriptions were given: Potassium Chloride [K-Dur] 40 meq PO BIDCM #120 tab Transmission Status: Pending to [facility]30 Primary Care Physician: Chente Daigle MD [Primary Care Provider] - Please follow up with your Primary Care Physician in: 1 Week Test Results: Test results from this visit will be discussed in further detail at your follow-up appointment, if applicable. Please Follow Up With: Isidro Estevez DO When: As scheduled Proposed Discharge Date: 01/31/20
--- NOTE | 2020-01-31 11:20 | DS.PCM_ITS ---
Discharge Date and Diagnosis Date of Admission: 01/30/20 Date of Discharge: 01/31/20 - Primary Discharge Diagnosis Acute Problems: 1. Intractable nausea, vomiting-secondary to chemotherapy regimen. 2. Hypokalemia 3. Metastatic melanoma 4. Chronic venous insufficiency/chronic lymphedema 5. Chronic iron deficiency anemia 6. Obesity 7. History of DVT/PE 8. Chronic kidney disease stage III 9. Type 2 diabetes mellitus 10. History of ovarian cancer 11. Anxiety - Secondary Discharge Diagnosis Chronic Problems: Chronic Problems Venous ulcer of right lower extremity without varicose veins (Chronic) Multiple thyroid nodules (Chronic) Thyromegaly (Chronic) Lymphedema of both lower extremities (Chronic) Melanoma (Chronic) Asthma (Chronic) Reported, severity unknown History of DVT (deep vein thrombosis) (Chronic) History of pulmonary embolism (Chronic) Type II diabetes mellitus (Chronic) Cancer of ovary (Chronic) Anemia (Chronic) Venous insufficiency (Chronic) Poor dentition (Chronic) Hospital Course and Treatment Imaging Results: Diagnostic Data Abdomen/Pelvis CT 01/30/20 10:17 IMPRESSION: Large midline ventral hernia containing multiple bowel loops, there is no evidence of acute inflammation, ileus or obstruction. No obstructive uropathy, bilateral nonobstructing renal stones. Normal appendix visualized Extensive degenerative bony changes Chronic interstitial changes in the lung bases. Electronically Signed: Nabil Vargas MD at 11:50 EDT , Service support , Consultations 01/30/20 13:54 Consult: Onc/Wound/youth services librarian Routine Comment: Operations: None Procedures: None Summary of Care Provided: The patient is a 74 year old F admitted 01/30/2020 due to nausea and vomiting. 1. Intractable nausea, vomiting-secondary to chemotherapy regimen. CT of abdomen and pelvis shows no acute inflammation, ileus or obstruction. IV fluids and as needed antiemetics during admission. No further nausea, vomiting day of discharge. Tolerating diet. Patient states her nausea is resolved when her pain medicine is given on time and pain is controlled. Patient follows with palliative medicine. Follow-up with PCP and oncology as outpatient. 2. Hypokalemia-increased home potassium regimen to 40meq twice daily. 3. Metastatic melanoma-undergoing chemotherapy. Follows with Dr. Estevez. Follows with palliative care as well. 4. Chronic venous insufficiency/chronic lymphedema-STEFANIA wraps bilateral lower extremities. 5. Chronic iron deficiency anemia-stable, trend CBC. 6. Obesity-encouraged diet and lifestyle modification. 7. History of DVT/PE-on Eliquis. 8. Chronic kidney disease stage III-at baseline, trend BMP. 9. Type 2 diabetes mellitus-continue home regimen. 10. History of ovarian cancer 11. Anxiety-on as needed Ativan. General: Alert, Oriented x3, Cooperative HEENT: Atraumatic, PERRLA, EOMI, Normocephalic Oral: Dry Mucosa Neck: Supple, No JVD, Negative Carotid Bruits Lungs: Clear to auscultation, Normal air movement Cardiovascular: Regular rate, No murmurs Abdomen: Bowel Sounds Present, Soft, Non Tender, Non-Distended, - - Colostomy intact Extremities: No clubbing, No cyanosis, Capillary Refill Less than 3 Seconds, Edema - Chronic lower extremity lymphedema Skin: No rashes, No breakdown Musculoskeletal: No Tenderness to Palpation of Joints or Extremities Neurological: Cranial nerves II-XII grossly intact, Neuro grossly intact Psych/Mental Status: Normal Affect, Appropriate Patient seen and examined prior to discharge. Physical assessment as noted above. Patient is stable for discharge with follow up recommendations as noted above. This patient was seen by ERVIN Armijo under the supervision of Dr. Edwards. - Physical Exam Vitals/I&O's: Vital Signs Temp Pulse Resp BP Pulse Ox 97.3 F L 69 16 113/52 L 99 01/31/20 08:30 01/31/20 08:30 01/31/20 08:30 01/31/20 08:30 01/31/20 08:30 Oxygen Delivery Method Room Air Weight: 199 lb 15.348 oz Body Mass Index (BMI) 38.9 Finger Stick Blood Glucose 210 Intake and Output for Last 24 Hours 01/29/20 01/30/20 01/31/20 23:59 23:59 23:59 Intake Total 1850 / 1850 1050 / 1050 Output Total 700 / 700 875 / 875 Balance 1150 / 1150 175 / 175 Laboratory Results 01/30/20 10:29: Magnesium 1.8 01/30/20 10:29: Phosphorus 3.2 01/30/20 13:50: Urine Color Yellow, Urine Clarity Clear, Urine pH 6.0, Ur Specific [place] 1.015, Urine Protein 30 H, Urine Glucose (UA) 50 H, Urine Ketones 5 H, Urine Occult Blood 10 H, Urine Nitrite Negative, Urine Bilirubin Negative, Urine Urobilinogen Normal, Ur Leukocyte Esterase 25 H, Urine RBC 0 SEEN, Urine WBC 0 SEEN, Ur Squamous Epith Cells 0 SEEN, Urine Bacteria 0 SEEN, Urine Mucus 0 SEEN 01/31/20 05:25: WBC 5.2, RBC 2.98 L, Hgb 7.8 L, Hct 27.4 L, MCV 91.9, MCH 26.2 L , MCHC 28.5 L, RDW Std Deviation 65.7 H, RDW Coeff of Zuri 19.4 H, Plt Count 238, MPV 10.2, Immature Gran % (Auto) 0.600, Neut % (Auto) 73.6 H, Lymph % (Auto) 13.4 L, Hartley % (Auto) 9.9, Eos % (Auto) 2.1, Baso % (Auto) 0.4, Absolute Neuts (auto) 3.8, Absolute Lymphs (auto) 0.69 L, Nucleated RBC % 0, Differential Comment SCANNED, Hypochromasia RARE, Anisocytosis 1+, Microcytosis 1+ 01/31/20 05:25: Sodium 144, Potassium 3.1 L, Chloride 109 H, Carbon Dioxide 30.0, Anion Gap 5, BUN 25 H, Creatinine 1.11 H, Estim Creat Clear Calc 63.67, Est GFR (MDRD) Af Amer 62, Est GFR (MDRD) Non-Af 51 L, BUN/Creatinine Ratio 22.5 H, Glucose 103, Calcium 8.1 L, Phosphorus 2.5, Magnesium 1.5 L Current Medications Acetaminophen (Acetaminophen 325 Mg Tablet) 650 mg PO Q6H PRN PRN PRN Reason: Pain Score 1-10/Temp > 100.7 F Al Hydroxide/Mg Hydroxide (Mag Hydrox/Al Hydrox/Simeth 30 Ml Udc) 30 ml PO Q6H PRN PRN PRN Reason: Gastric Burning Albuterol Sulfate (Albuterol 2.5 Mg/3 Ml Vial.Neb.) 2.5 mg INHALATION Q2H PRN PRN PRN Reason: Shortness of Breath/Wheezing Apixaban (Apixaban 2.5 Mg Tablet) 2.5 mg PO BID [place] Last Admin: 01/31/20 08:29 Dose: 2.5 mg Documented by: Ascorbic Acid (Ascorbic Acid 500 Mg Tablet) 500 mg PO DAILY [facility] Last Admin: 01/31/20 08:29 Dose: 500 mg Documented by: Brimonidine Tartrate (Brimonidine 0.2% 5ml Bottle) 1 drop EACH EYE BID [facility] Last Admin: 01/31/20 08:30 Dose: 1 drop Documented by: Cholecalciferol (Cholecalciferol (Vit D3) 1,000 Unit (25mcg)) 2,000 unit PO DAILY [facility] Last Admin: 01/31/20 08:29 Dose: 2,000 unit Documented by: Cyanocobalamin (Cyanocobalamin 500 Mcg Tablet) 1,000 mcg PO DAILY@0800 [facility] Last Admin: 01/31/20 08:29 Dose: 1,000 mcg Documented by: Cyclobenzaprine HCl (Cyclobenzaprine Hcl 10 Mg Tablet) 10 mg PO QHS [facility] Last Admin: 01/30/20 21:07 Dose: 10 mg Documented by: Furosemide (Furosemide 80 Mg Tablet) 80 mg PO BIDLX [facility] Last Admin: 01/31/20 08:29 Dose: 80 mg Documented by: Hydrocortisone (Hydrocortisone 10 Mg Tablet) 10 mg PO DAILYCM [facility] Last Admin: 01/31/20 09:21 Dose: 10 mg Documented by: Hydrocortisone (Hydrocortisone 10 Mg Tablet) 5 mg PO DINNER [facility] Last Admin: 01/30/20 16:59 Dose: 5 mg Documented by: Sodium Chloride () 250 mls @ 15 mls/hr IV .[id number] PRN PRN Reason: Saline Flush Last Infusion: 01/30/20 17:17 Dose: 0 mls/hr Documented by: Sodium Chloride () 250 mls @ 15 mls/hr IV .[id number] PRN PRN Reason: Additional IVPB Infusion Lorazepam (Lorazepam 0.5 Mg Tablet) 0.25 mg PO Q6H PRN PRN PRN Reason: ANXIETY Melatonin (Melatonin 3 Mg Tablet) 3 mg PO QHS PRN PRN PRN Reason: INSOMNIA Last Admin: 01/30/20 21:11 Dose: 3 mg Documented by: Ondansetron HCl (Ondansetron 4 Mg/2 Ml Vial) 4 mg IV Q6H PRN PRN PRN Reason: NAUSEA/VOMITING Oxycodone HCl (Oxycodone 5 Mg Tablet) 5 mg PO Q4H PRN PRN PRN Reason: Pain Score 4-5 Last Admin: 01/31/20 08:33 Dose: 5 mg Documented by: Oxycodone HCl (Oxycodone 5 Mg Tablet) 10 mg PO TID [facility] Last Admin: 01/31/20 06:01 Dose: 10 mg Documented by: Potassium Chloride (Potassium Chloride 20 Meq Tablet) [facility] Last Admin: 01/31/20 08:29 Dose: 40 meq Documented by: Prochlorperazine Edisylate (Prochlorperazine 10 Mg/2 Ml Vial) 5 mg IV Q4H PRN PRN PRN Reason: Breakthrough nausea/vomiting Promethazine HCl (Promethazine 25 Mg Tablet) 25 mg PO 4X/DAY PRN PRN PRN Reason: NAUSEA/VOMITING Senna/Docusate Sodium (Senna/Docusate Sodium 1 Tablet) 2 tablet PO BID PRN PRN PRN Reason: Constipation Sodium Chloride (0.9% Saline Lock 10 Ml Syringe) 10 - 40 ml IV UD PRN PRN Reason: SALINE FLUSH Last Admin: 01/30/20 17:00 Dose: 10 ml Documented by: Discharge Diet: Light diet - advance as tolerated Discharge Activity: Return to Normal Activity Call your doctor if you observe: Fever of 101 or Higher, Shortness of breath, Dizziness, Fainting spells, Chest pain Home Medications: Medications to take at Discharge Cyanocobalamin [Vitamin B12] 1,000 mcg PO DAILY@0800 05/29/15 cycloBENZAPRine HCl [Flexeril] 10 mg PO QHS 05/29/15 metFORMIN HCl [Glucophage] 1,000 mg PO BIDCM 05/29/15 Apixaban [Eliquis] 2.5 mg PO BID 06/12/15 proMETHazine tablet [Phenergan tablet] 25 mg PO 4X/DAY PRN PRN #20 tablet 07/20/15 Albuterol IH (ProAir) [Proair Hfa] 2 puff INHALATION Q6H PRN PRN 05/27/16 Ondansetron HCl [Zofran] 8 mg PO TID PRN PRN 05/27/16 Cholecalciferol (VIT D3) [Vitamin D3] 2,000 unit PO DAILY 04/01/18 Ascorbic Acid [C-1000 with Kelley Hips] 500 mg PO DAILY 01/12/19 DiphenhydrAMINE [Benadryl] 25 mg PO BID 01/12/19 Lorazepam [Ativan] 0.25 - 0.5 mg PO Q6H PRN PRN 01/12/19 Brimonidine Tartrate 0.2% [Brimonidine 0.2% 5Ml Bottle] 1 drp EACH EYE BID 04/22/19 Cetirizine HCl 10 mg PO DAILY PRN 04/22/19 Difluprednate [Durezol] 1 drp EACH EYE 04/22/19 Nivolumab [Opdivo] 240 mg IV .COMPLEX 04/22/19 Oxycodone [Oxyir] 5 mg PO PRN PRN 04/22/19 Hydrocortisone [Cortef] 10 mg PO BID 01/15/20 Acetaminophen [Tylenol Tablet] 650 mg PO Q6H PRN PRN tab 01/16/20 Oxycodone [Oxyfast] 10 mg PO TID 01/30/20 Torsemide [Demadex] 40 mg PO BID 01/30/20 Potassium Chloride [K-Dur] 40 meq PO BIDCM #120 tab 01/31/20 Following Prescriptions Were Given to Patient: Potassium Chloride [K-Dur] 40 meq PO BIDCM #120 tab Transmission Status: Pending to [facility] Primary Care Physician: Chente Daigle MD [Primary Care Provider] - Please follow up with your Primary Care Physician in: 1 Week Please Follow Up With: Isidro Estevez DO When: As scheduled Disposition: Home Minutes spent on discharge:: 35 Patient Condition:: Stable Medical Necessity - Tobacco Use Smoking Status: Never smoker Meaningful Use Info Meaningful Use Diagnoses (Choose all that apply): None applicable
--- NOTE | 2020-01-31 13:00 | CASEMGMT ---
BRIT RAMON Chart Review: Patient is a readmission from initial stay on 01/13/2020-01/16/2020 for Anasarca, cellulitis of the right leg. Patient was discharged to home. Patient states she filled prescriptions without any issues. Patient states she followed up with her oncologist, Diana on 01/18/20. Patient had appt with PCP on 01/26/20 but states she did not attended because she wasn't feeling well and her daughter had an emergency with her child. Patient readmitted 01/30/20 for nausea, vomiting, and abdominal pain. Patient denies needs at discharge and states her daughter checks on her and assists if needed. Patient is active with Palliative care. Disposition Plan: Patient to discharge home with family support and follow-up plans in place.
--- NOTE | 2020-02-02 16:24 | CASEMGMT ---
BRIT RAMON Discharge Follow-up Phone Call: HUSAM: Noemi Strata: 3 Call Date: 02/02/2020 Discharge Date: 02/01/2020 Time of Call: 1420 Duration: 1min Admitting Diagnosis: Chemotherapeutic side effects BRIT RAMON attempted to complete follow-up phone call after recent hospitalization. No answer, voice message left with return contact information.
== END 2020-01-31 18:57 | disposition home or self-care (01) | DRG 392 ==
LOC: ED 11:15 → MS3 01-31 07:08
PROVIDERS: Admitting Provider Internal Medicine; Emergency Provider Emergency Medicine; PCP Family Medicine; Visit Provider Internal Medicine
DX: R11.2 Nausea with vomiting, unspecified (principal); C79.89 Secondary malignant neoplasm of other specified sites; T45.1X5A Adverse effect of antineoplastic and immunosuppressive drugs, initial encounter; C43.9 Malignant melanoma of skin, unspecified; E87.6 Hypokalemia; I89.0 Lymphedema, not elsewhere classified; I87.2 Venous insufficiency (chronic) (peripheral); D50.9 Iron deficiency anemia, unspecified; E11.22 Type 2 diabetes mellitus with diabetic chronic kidney disease; N18.30 Chronic kidney disease, stage 3 unspecified; F41.9 Anxiety disorder, unspecified; J45.909 Unspecified asthma, uncomplicated; E04.2 Nontoxic multinodular goiter; K43.5 Parastomal hernia without obstruction or gangrene; K08.9 Disorder of teeth and supporting structures, unspecified; E86.0 Dehydration; E66.9 Obesity, unspecified; Z68.38 Body mass index [BMI] 38.0-38.9, adult; Z93.3 Colostomy status; Z51.5 Encounter for palliative care; Z85.43 Personal history of malignant neoplasm of ovary; Z86.718 Personal history of other venous thrombosis and embolism; Z86.711 Personal history of pulmonary embolism; Z95.828 Presence of other vascular implants and grafts; Z90.710 Acquired absence of both cervix and uterus; Z90.5 Acquired absence of kidney; Z79.01 Long term (current) use of anticoagulants; Z79.84 Long term (current) use of oral hypoglycemic drugs; Z79.899 Other long term (current) drug therapy
CPT/HCPCS: 36415; 74176; 80048; 80053; 81001; 83605; 83690; 83735; 84100; 85025; 96361; 96365; 96366; 96375; 97162; 97166; 97802; 99218; 99251; 99283; J7030; J7050; A4216; G0378; G0463; J2405

== ENCOUNTER → 2020-02-06 17:54 | Outpatient (CLI) | payer MEDICARE, SELFPAY ==
[2020-01-30 14:07] VITALS: BMI 38.9
--- NOTE | 2020-02-06 18:15 | MRI_ITS ---
STUDY: MR PELVIS WITH T WITHOUT CONTRAST REASON FOR EXAM: Female, 74 years old. increased leg edema, vaginal melanoma, ovarian ca, lymphedema TECHNIQUE: Standardized fat and water weighted pulse sequences were obtained in all 3 orthogonal planes, pre-and post contrast administration. IV Dotarem 19ml was administered for the contrast portion of the examination. COMPARISON: CT 01/30/2020, MRI 10/30/2019. FINDINGS: Normal urinary bladder. Normal visualized small intestine. 3.2 x 4.2 cm mass in the left side of the rectum worrisome for rectal carcinoma and clinical correlation is recommended. There is no pelvic fluid. There is no pelvic mass lesion or lymphadenopathy. Normal visualized pelvic arteries. Normal osseous structures. Normal abdominal wall. MRI/Pelvis W/WO Contrast IMPRESSION: Suspect rectal mass and clinical correlation is recommended. Electronically Signed: Brooks Berkowitz MD at 16:19 EDT Tel , Service support ,
== END ==
LOC: MRI 17:55
PROVIDERS: PCP Family Medicine; Referring Provider Internal Medicine Hematology & Oncology; Visit Provider Internal Medicine Hematology & Oncology
DX: R60.0 Localized edema (principal); C52 Malignant neoplasm of vagina
CPT/HCPCS: 72197; A9575

== ENCOUNTER → 2020-02-16 09:45 | Outpatient (CLI) | payer MEDICARE, SELFPAY ==
[2020-01-30 14:07] VITALS: BMI 38.9
--- NOTE | 2020-02-16 09:00 | PET_ITS ---
EXAMINATION: FDG PET-CT ? Head to Toe INDICATIONS: A 74-year-old female with history of malignant melanoma presenting for restaging examination. COMPARISON EXAMINATION: FDG PET study dated 02/06/2019 INDEX LESION SIZE SUV INTERPRETATION PERSISTENT: lower pelvis, rectum-rectal vault 48.8-mm (frame 45) comp. to 45.0-mm (02/06/19) 6.9 comp. to 8.5 (02/06/19) Fulfills quantitative criteria for viable neoplasm, interim metabolic improvement PERSISTENT: right anterior neck associated with and/or adjacent to right lobe thyroid gland 19.4-mm (frame 198) comp. to 25.1-mm (02/06/19) 5.3 comp. to 8.0 (02/06/19) Warrants further investigation with thyroid ultrasound if not previously obtained NON-INDEX LESION SIZE SUV INTERPRETATION NEW: left lower lung-left lower lobe, linear 1.5 Quantitative criteria for viable neoplasm are not fulfilled NEW: left retropectoral lymph node distribution 1.8 Quantitative criteria for viable neoplasm are not fulfilled TECHNIQUE: Following the intravenous administration of 12.5 mCi of F-18 deoxyglucose via the left antecubital fossa, multiplanar image acquisitions of the head, neck, chest, abdomen and pelvis, lower extremities to the level of the bilateral feet, obtained at one hour post radiopharmaceutical administration contemporaneously interpreted with the current CT of the head, neck, chest, abdomen and pelvis, lower extremities to the level of the bilateral feet, dated 02/16/2020 via coregistration and FDG PET study dated 02/06/2019 reveals: BLOOD GLUCOSE LEVEL:?? 145 mg/dl?HEIGHT:?69 inches?WEIGHT: 190 lbs. FINDINGS: 1. Redefined increased radiopharmaceutical concentration remains apparent in the distribution of the rectum-rectal vault generating a current calculated maximal standard uptake value of 6.9, compared to 8.5 defined on the FDG PET study dated 02/06/2019. The maximal axial diameter of the corresponding metabolic, morphologic abnormality on review of CT of the pelvis dated 02/16/2020 is 48.8-mm (AP). 2. An asymmetric increase in FDG distribution remains apparent in the right anterior neck associated with and/or contiguous to the right lobe of the thyroid gland rendering a current calculated maximal standard uptake value of 5.3, compared to 8.0 defined on the previous examination. The maximal axial diameter of the corresponding metabolic abnormality on review of CT of the neck dated 02/16/2020 is 19.4-mm. 3. Normal physiologic distribution of the radiopharmaceutical is apparent in the hepatic (2.7/3.4) and splenic parenchyma, both renal units, bladder and visualized intestinal tract. Symmetric glucose metabolism is evident in the occipital, frontal, parietal and temporal lobes of the cerebral cortex, as well as normal visualization of the basal ganglia and cerebellar hemispheres. Diffuse radiopharmaceutical concentration is noted in all four quadrants of the abdomen and pelvis. Subtle increased FDG distribution is newly apparent in the left retropectoral region registering a calculated maximal standard uptake value of 1.8. Symmetric tracer concentration is observed in the distribution of the longus capitis musculature most consistent with muscle tension artifact. Pertinent CT findings are as follows: CHEST: There are no parenchymal densities-nodules defined in the right and left hemithorax with discernible quantitatively significant increased FDG concentration. A linear density defined in the left lower lung generates a calculated maximal standard uptake value of 1.5. Quantitative criteria for viable neoplasm are not fulfilled. There is atherosclerotic calcification defined in the thoracic aorta without evidence of dilatation-aneurysm formation. Coronary arterial calcification is observed. There are no additional parenchymal densities-nodules defined in the right and left hemithorax with discernible quantitatively significant increased FDG distribution. ABDOMEN AND PELVIS: A prominent ventral hernia remains evident with visualized intestinal tract. The gallbladder is surgically absent. Calcification is defined in both renal units. Filter placement is observed in the inferior vena cava. There is atherosclerotic calcification defined in the abdominal aorta without evidence of dilatation-aneurysm formation. Pelvic arterial calcification is observed. Postsurgical changes are noted in the lower pelvic mesentery. The uterus appears surgically absent. Right and left inguinal soft tissue densities with fatty hilus are ametabolic. SKELETAL: Degenerative changes are noted in the cervical, thoracic and lumbar spine. A right hip arthroplasty remains apparent. PET/PET/CT Tumor Base -Thigh Subs IMPRESSION: 1. ABNORMAL EXAMINATION INDICATIVE OF MALIGNANT VIABLE NEOPLASM. 2. Increased glucose redefined in the lower pelvis associated with the rectum-rectal vault fulfills quantitative criteria for viable neoplasm. 3. Enhanced tracer uptake persistently visualized in the right anterior neck associated with and/or contiguous to the right lobe of the thyroid gland posteriorly may be further investigated with thyroid ultrasound if not previously obtained secondary to the quantitative degree of uptake if not previously obtained. (Emigdio Mayer, et al, Journal of Clinical Endocrinology and Metabolism, 88:4100, 2003). 4. The increase in FDG distribution currently identified in the left lower lung-linear in presentation and the distribution of the left retropectoral lymph nodes does not fulfill quantitative criteria for viable neoplasm. 5. Overall, compared to the prior FDG PET study dated 02/06/2019, there is continued demonstration of viable neoplasm within the context of the rectum-rectal vault manifesting an interim decrease in the quantitative degree of uptake. Persistent increased tracer uptake visualized in the right anterior neck necessitates further radiologic investigation. Electronic Signature Brooks Ku D.O. Accurate Quantification of SUVs for this report are calculated using the exclusive [employer] Technology. Electronically Signed: Brooks Ku DO at 17:02 EST Tel , Service support ,
== END ==
PROVIDERS: PCP Family Medicine; Referring Provider Internal Medicine Hematology & Oncology; Visit Provider Internal Medicine Hematology & Oncology
DX: C52 Malignant neoplasm of vagina (principal)
CPT/HCPCS: 78815; A9552

== ENCOUNTER 2020-03-05 12:48 | Emergency (ER) | payer MEDICARE, SELFPAY ==
[2020-03-05 12:49] VITALS: BP 99/55; PULSE 111; RESP 20; TEMP 37.2; O2SAT 96; BMI 40.4
--- NOTE | 2020-03-05 13:18 | RAD_ITS ---
STUDY: X-RAY CHEST REASON FOR EXAM: Female, 74 years old. Dyspnea, rales, edema. TECHNIQUE: Single AP portable view of the chest. COMPARISON: Comparison is made with prior study dated 01/13/2020. FINDINGS: EKG electrodes are seen. Stable elevation of the left hemidiaphragm. Mild increased markings at the lung bases slightly more prominent on the left side suggestive of bibasilar atelectasis. There is no demonstrated pleural abnormality. Normal size heart. Normal mediastinum and demetrius. Normal visualized pulmonary arteries. There is atherosclerotic tortuosity of the aortic arch and descending thoracic aorta. There are diffuse degenerative changes of the visualized thoracic spine. Degenerative changes of the right shoulder. Prior rotator cuff surgery of the left shoulder. There is no demonstrated abnormality of the visualized soft tissue structures of the upper abdomen. RAD/Chest 1 View (Portable) IMPRESSION: Mild increased linear markings at the lung bases slightly worse on the left side suggestive of bibasilar atelectasis. Electronically Signed: Mitchel Diaz, at 14:09 EST , Service support ,
--- NOTE | 2020-03-05 13:18 | EKG12_ITS ---
Test Reason : Blood Pressure : / mmHG Vent. Rate : 117 BPM Atrial Rate : 117 BPM P-R Int : 152 ms QRS Dur : 082 ms QT Int : 310 ms P-R-T Axes : 090 -36 056 degrees QTc Int : 432 ms Sinus tachycardia with frequent and consecutive Premature ventricular complexes Left axis deviation Nonspecific ST and T wave abnormality Abnormal ECG Confirmed by NIDHI BEAR, PHILLY ([id number]), video editor LUCRETIA CONNOR ([id number]) on 03/06/2020 1:52:08 PM Referred By: LENNIE Confirmed By:PHILLY TERRELL MD
--- NOTE | 2020-03-05 13:36 | ED.VIS.GEN ---
History of Present Illness Chief Complaint: Edema Informant: Patient Onset: Weeks Context: Gradual Onset Timing: Continuous Quality: Serous drainage from lower extremities Location: Right and left lower extremity Current Severity: Severe Maximum Severity: Severe Worsened by: Obstructive process due to melanoma Relieved by: Nothing Associated Symptoms: Difficulty maneuvering because of lymphedema Narrative: Patient is a 74-year-old woman who was sent in to the emergency department for evaluation and admission. Her PCP is Dr. Chente Daigle. Her oncologist Dr. Isidro Estevez. She states she is able to ambulate. She is not been able to weigh herself because she cannot get on the scale. She states she is on a diuretic to give her the excess fluid. She does not know whether she has lost weight or gain weight. She does still have a week. She denies heart failure. She denies orthopnea or PND. She has no constitutional symptoms to suggest infection. Prior similar symptoms: Yes Recent Illness/Hospitalization: Yes - Past Medical History (1) Anemia Status: Chronic (2) History of DVT (deep vein thrombosis) Status: Chronic (3) History of pulmonary embolism Status: Chronic (4) Lymphedema of both lower extremities Status: Chronic (5) Melanoma Status: Chronic (6) Multiple thyroid nodules Status: Chronic (7) Type II diabetes mellitus Status: Chronic (8) Venous insufficiency Status: Chronic Past Medical History - Allergies and Home Meds Allergies/Adverse Reactions: Allergies clindamycin Allergy (Verified 03/05/20 12:52) Other iodine Allergy (Verified 03/05/20 12:52) rash/incoherent meperidine HCl [From Demerol] Allergy (Verified 03/05/20 12:52) Nausea/vomiting/diarrhea Penicillins Allergy (Verified 03/05/20 12:52) Itching/hives adhesive tape Adverse Reaction (Verified 03/05/20 12:52) blisters BLISTERS aspirin Adverse Reaction (Verified 03/05/20 12:52) nosebleeds diazepam [From Valium] Adverse Reaction (Verified 03/05/20 12:52) Nausea/Vom/Diarrhea egg Adverse Reaction (Verified 03/05/20 12:52) Diarrhea levofloxacin [From Levaquin] Adverse Reaction (Verified 03/05/20 12:52) Vomiting methadone Adverse Reaction (Verified 03/05/20 12:52) Upset Stomach morphine Adverse Reaction (Verified 03/05/20 12:52) Nausea/Vom/Diarrhea sulfamethoxazole [From Bactrim] Adverse Reaction (Verified 03/05/20 12:52) Nausea/Vom/Diarrhea trimethoprim [From Bactrim] Adverse Reaction (Verified 03/05/20 12:52) Nausea/Vom/Diarrhea Primary Care Physician: Chente Daigle MD [Primary Care Provider] - Prior records reviewed: Yes Surgical History: cholecystectomy, hysterectomy - For uterine fibroids, total hip arthroplasty - Right, total knee arthroplasty - Left, - - Surgery for bilateral carpal tunnel syndrome. Resection of ovarian cancer at [facility] in 2016, debridement of the abdominal wall with wound closure by Dr. Garza in June 2015 Lives: Alone Smoking Status: Never smoker Alcohol: None Drugs: None - Family History Maternal Family History: Reports: - - Denies known maternal medical history including cardiac history. Paternal Family History: Reports: - - Denies known paternal medical history including cardiac history. Review of Systems General: Reports: Malaise. Denies: Chills, Fever, Subjective, Sweats ENT: Denies: Bilateral ear pain, Left ear pain Cardiovascular: Denies: Chest pain, Palpitations Respiratory: Denies: Dyspnea, Cough, Sputum, Dyspnea on exertion, Orthopnea, Paroxysmal nocturnal dyspnea Gastrointestinal: Reports: Abdominal pain. Denies: Nausea, Vomiting, Diarrhea Genitourinary: Denies: Dysuria, Hematuria, Frequency Musculoskeletal: Reports: Swelling Skin: Denies: Rash, Wounds Neurological: Denies: Weakness, Parasthesia, Numbness Endocrine: Denies: Polyuria, Polydipsia Hematologic: Denies: Easy bruising, Easy bleeding Allergy: Denies: Uticaria, Swelling of the mouth, Swelling of the tongue Physical Exam Vital Signs/Narrative: Vital Signs Temp Pulse Resp BP Pulse Ox 03/05/20 12:49 98.9 F 111 H 20 H 99/55 L 96 Inital Vital Signs reviewed: Yes General: Well nourished, Well developed, Obese Head: Normocephalic, Atraumatic Eyes: Perrl, EOMI, Pale conjunctiva. Negative for: Scleral icterus Neck: Supple, Nontender, No lymphadenopathy, No JVD Cardiovascular: Regular rhythm, No murmurs, Normal S1, Normal S2, Tachycardia Respiratory: No distress, CTA bilaterally, Chest nontender Abdomen: Soft, Nontender, - - To be noted. Large ventral hernia. Tympany to percussion. Rectal: Deferred Back: Nontender, Normal Inspection Extremities: Nontender, Edema Skin: Normal color, No rash, No Trauma Neurological: Alert, Oriented x3, Cranial nerves II-XII grossly intact, Normal Strength, Normal Sensation Psychological: Depressed, - - Agitated Diagnostic/Tx/Re-eval Chest X-Ray - ED: 1 View, Read by ED Physician, Read by Radiologist, Normal, Lungs, Mediastinum, Bony Structures, No Acute Disease, Chronic Changes Impressions Chest X-Ray 03/05/20 13:18 IMPRESSION: Mild increased linear markings at the lung bases slightly worse on the left side suggestive of bibasilar atelectasis. Electronically Signed: Mitchel Emily, at 14:09 EST , Service support , 03/05/20 13:18 Chest 1 View (Portable) [RAD] Stat Laboratory Results 03/05/20 03/05/20 03/05/20 13:40 13:40 13:40 WBC 11.0 RBC 3.91 L Hgb 9.7 L Hct 33.9 L MCV 86.7 MCH 24.8 L MCHC 28.6 L RDW Std Deviation 58.1 H RDW Coeff of Zuri 18.2 H Plt Count 285 MPV 10.4 Immature Gran % (Auto) 0.500 Neut % (Auto) 91.2 H Lymph % (Auto) 2.5 L Crisp % (Auto) 5.4 Eos % (Auto) 0.1 Baso % (Auto) 0.3 Absolute Neuts (auto) 10.1 H Absolute Lymphs (auto) 0.27 L Nucleated RBC % 0 PT 18.2 H INR 1.6 Sodium 136 Potassium 3.7 Chloride 97 L Carbon Dioxide 33.0 H Anion Gap 6 BUN 21 H Creatinine 1.37 H Estim Creat Clear Calc 51.59 Est GFR (MDRD) Af Amer 48 L Est GFR (MDRD) Non-Af 40 L BUN/Creatinine Ratio 15.3 Glucose 306 H Calcium 9.5 Total Bilirubin 0.50 AST 8 L ALT 13 Alkaline Phosphatase 99 Troponin I 0.026 B-Natriuretic Peptide Total Protein 7.8 Albumin 2.3 L Globulin 5.5 H Albumin/Globulin Ratio 0.4 L 03/05/20 13:40 WBC RBC Hgb Hct MCV MCH MCHC RDW Std Deviation RDW Coeff of Zuri Plt Count MPV Immature Gran % (Auto) Neut % (Auto) Lymph % (Auto) Crisp % (Auto) Eos % (Auto) Baso % (Auto) Absolute Neuts (auto) Absolute Lymphs (auto) Nucleated RBC % PT INR Sodium Potassium Chloride Carbon Dioxide Anion Gap BUN Creatinine Estim Creat Clear Calc Est GFR (MDRD) Af Amer Est GFR (MDRD) Non-Af BUN/Creatinine Ratio Glucose Calcium Total Bilirubin AST ALT Alkaline Phosphatase Troponin I B-Natriuretic Peptide 119.1 H Total Protein Albumin Globulin Albumin/Globulin Ratio Work reveals anemia, which is chronic. There is evidence of renal insufficiency, which is chronic. BNP is 119 and there is no evidence of heart failure on the chest x-ray. Case was discussed with Dr. Gabriella Spicer covering for Dr. Isidro Estevez. Feel the lymphedema is due to the melanoma, hypoalbuminemia and renal insufficiency. Case management is presently talking with her regarding discussion with palliative care and the only recommendation is increase Lasix. Patient was informed she does not meet criteria for admission to the hospital. - EKG Initial EKG Interpretation: Sinus Tachycardia - Tachycardia with a ventricular rate of 117 with premature ventricular complexes noted. MO interval 152 ms. QRS duration 82 ms. QT duration 310 ms. [place] to the left. ED Disposition - Plan for ED Patient: Disposition: Home or Assisted Living Diagnosis: Lymphedema due to malignant infiltration, Edema due to hypoalbuminemia, End-stage renal disease, stage III, Anemia, unspecified, Venous insufficiency, Melanoma Instructions: ED Peripheral Edema, Bilateral, ED Anemia Type Not Specified Referrals: Chente Daigle MD [Primary Care Provider] - As Needed Isidro Estevez DO [STAFF PHYSICIAN] - Keep Jesus Manuel appointment
[2020-03-05 13:56] LABS: Absolute Lymphocyte Count 0.27 X10^3/uL (0.83-4.51); Absolute Neutrophil Count 10.1 X10^3/uL (2.0-7.7); Basophil# 0.03 X10^3/uL; Basophil% 0.3 % (0-1); Eosinophil# 0.01 X10^3/uL; Eosinophils% 0.1 % (0-5); Hematocrit 33.9 % (37-47); Hemoglobin 9.7 g/dL (12.0-15.0); Lymphocyte # 0.27 X10^3/ul (4.0); Lymphocyte % 2.5 % (19-41); Mean Corp Hgb Conc 28.6 g/dL (32-36); Mean Corpuscular Hgb 24.8 pg (27.0-32.0); Mean Corpuscular Volume 86.7 fL (81-99); Mean Platelet Vol. 10.4 fl (6.2-12.0); Monocyte% 5.4 % (0-10); NRBC Flagged by Analyzer 0 % (0-5); Neutrophil # 10.05 X10^3/uL (2.7-7.7); Neutrophil % 91.2 % (47-70); POSITIVE DIFFERENTIAL YES; Platelet Count 285 K/mm3 (150-450); RBC Distribution Width CV 18.2 % (11.6-14.6); RBC Distribution Width SD 58.1 fl (35.1-43.9); Red Blood Count 3.91 M/mm3 (4.2-5.4)
[2020-03-05 13:59] LABS: Differential Indicated SCAN CRITERIA MET
[2020-03-05 14:00] LABS: International Normalized Ratio 1.6; Prothrombin Time (Protime)PT. 18.2 SECONDS (11.7-14.9)
[2020-03-05 14:08] VITALS: BP 110/97; PULSE 102; RESP 14; O2SAT 98
[2020-03-05 14:08] LABS: ALB/GLOB Ratio 0.4 RATIO (0.9-2.4); AST(SGOT) 8 U/L (15-37); Alanine Aminotransfer ALT/SGPT 13 U/L (13-56); Albumin, Serum 2.3 g/dL (3.2-5.0); Alkaline Phosphatase 99 U/L (45-117); Anion Gap 6 (5-15); BUN 21 mg/dL (7-18); BUN/Creat Ratio 15.3 RATIO (10-20); Calcium,Total 9.5 mg/dL (8.5-10.1); Chloride 97 mmol/L (98-107); Creatinine, Serum 1.37 mg/dL (0.55-1.02); EST Glomerular Filtration Rate 40 mL/min (>60); Est Glom Filt Rate - Afr Amer 48 mL/min (>60); Estimated Creatinine Clearance 51.59 ml/min; Globulin 5.5 g/dL (2.2-4.2); Glucose 306 mg/dL (74-106); Potassium 3.7 mmol/L (3.5-5.1); Protein, Total 7.8 g/dL (6.4-8.2); Sodium Level 136 mmol/L (136-145)
[2020-03-05 14:19] LABS: BNP,B-Type NATRIURETIC PEPTIDE 119.1 pg/mL (0-100)
--- NOTE | 2020-03-05 14:47 | CM.ED ---
Social Work Consult: Discharge Planning Informant: Dr. Vera Met with patient and Dr. Vera in room. Dr. Vera introduced this social and human services assistant to patient. Dr. Vera communicating to patient that patient does not qualify for inpatient medical care. Patient reports to be fine with this. Patient states to be frustrated with current medical diagnosis. Patient agreeable to speak with this social and human services assistant. Patient reports to live alone and to have a daughter that checks on patient daily. Patient reports to be independent with all ADL's and family assist with transportation. Patient reports to be active with Palliative Care services through [facility] and is agreeable to this social and human services assistant contacting Palliative Care about patient being in the emergency room. Patient reports main focus right now is managing the pain. Patient reports to have needed help in the community. Active support and listening provided. Telephone call to [facility], Palliative Care. Voicemail left for Palliative Care staff. Deonte CHATMAN, ADDI-S
[2020-03-05 14:53] LABS: Anisocytosis 2+; Differential Comment SCANNED; Hypochromasia 2+
[2020-03-05 15:11] VITALS: BP 137/60; PULSE 71; RESP 17; O2SAT 96
== END 2020-03-05 15:05 | disposition home or self-care (01) ==
PROVIDERS: Emergency Provider Emergency Medicine; PCP Family Medicine
DX: I89.0 Lymphedema, not elsewhere classified (principal); E88.09 Other disorders of plasma-protein metabolism, not elsewhere classified; I87.2 Venous insufficiency (chronic) (peripheral); E11.22 Type 2 diabetes mellitus with diabetic chronic kidney disease; N18.6 End stage renal disease; D63.1 Anemia in chronic kidney disease; R06.00 Dyspnea, unspecified; E66.9 Obesity, unspecified; Z85.820 Personal history of malignant melanoma of skin; Z68.41 Body mass index [BMI] 40.0-44.9, adult; Z86.711 Personal history of pulmonary embolism; Z86.718 Personal history of other venous thrombosis and embolism; Z88.0 Allergy status to penicillin; Z88.1 Allergy status to other antibiotic agents; Z88.2 Allergy status to sulfonamides; Z88.5 Allergy status to narcotic agent; Z88.6 Allergy status to analgesic agent; Z79.84 Long term (current) use of oral hypoglycemic drugs; Z79.01 Long term (current) use of anticoagulants; Z79.899 Other long term (current) drug therapy
CPT/HCPCS: 71045; 80053; 83880; 84484; 85025; 85610; 93005; 99284; A4216

== ENCOUNTER 2020-04-14 22:13 | Inpatient (IN) | payer MEDICARE, SELFPAY ==
[2020-04-14 22:14] VITALS: BP 129/88; PULSE 77; RESP 16; TEMP 35.9; O2SAT 97; BMI 39.7
--- NOTE | 2020-04-14 22:34 | EKG12_ITS ---
Test Reason : SYNCOPE Blood Pressure : / mmHG Vent. Rate : 094 BPM Atrial Rate : 094 BPM P-R Int : 176 ms QRS Dur : 100 ms QT Int : 386 ms P-R-T Axes : 061 -36 041 degrees QTc Int : 482 ms Normal sinus rhythm Left axis deviation Abnormal ECG Confirmed by TERRI BEAR, DEL ([id number]), scientific publications editor MYCHAL NGUYEN ([id number]) on 04/18/2020 10:21:53 AM Referred By: ROSCOE Confirmed By:MARIELA MURRAY MD
[2020-04-14 22:44] LABS: Absolute Lymphocyte Count 0.56 X10^3/uL (0.83-4.51); Absolute Neutrophil Count 10.7 X10^3/uL (2.0-7.7); Basophil# 0.02 X10^3/uL; Basophil% 0.2 % (0-1); Eosinophil# 0.04 X10^3/uL; Eosinophils% 0.3 % (0-5); Hematocrit 32.4 % (37-47); Hemoglobin 9.5 g/dL (12.0-15.0); Lymphocyte # 0.56 X10^3/ul (4.0); Lymphocyte % 4.6 % (19-41); Mean Corp Hgb Conc 29.3 g/dL (32-36); Mean Corpuscular Hgb 24.9 pg (27.0-32.0); Mean Platelet Vol. 11.3 fl (6.2-12.0); Monocyte# 0.71 X10^3/uL; Monocyte% 5.9 % (0-10); NRBC Flagged by Analyzer 0 % (0-5); Neutrophil # 10.71 X10^3/uL (2.7-7.7); Neutrophil % 88.3 % (47-70); POSITIVE DIFFERENTIAL YES; Platelet Count 195 K/mm3 (150-450); RBC Distribution Width CV 17.7 % (11.6-14.6); RBC Distribution Width SD 54.3 fl (35.1-43.9); Red Blood Count 3.81 M/mm3 (4.2-5.4); White Blood Count 12.1 K/mm3 (4.4-11.0)
[2020-04-14 22:45] LABS: Differential Indicated SCAN CRITERIA MET
--- NOTE | 2020-04-14 22:50 | RAD_ITS ---
HISTORY: PT REPORTS SHE PASSED OUT TWICE TODAY EXAM: XR Chest 1 View: COMPARISON: March 05, 2020 FINDINGS: # of images incl. paperwork: 1 Some calcific plaque within the aortic arch Elevation of the left hemidiaphragm with minimal chronic left basilar scarring is similar to the previous study Heart is not enlarged. Severe right shoulder arthritis with likely old Hill-Sachs fracture. Previous left shoulder rotator cuff repair. Pulmonary vascularity is distinct. No effusions. RAD/Chest 1 View (Portable) IMPRESSION: No acute cardiopulmonary disease. Chronic elevation of left hemidiaphragm. Arthritis with likely old Hill-Sachs fracture of the right humeral head. at 2340 Reported and signed by: Сергей Díaz MD Electronically Signed: Сергей Díaz MD at 23:39 EST Tel , Service support ,
[2020-04-14 23:05] LABS: Platelet Morphology CLUMPED
[2020-04-14 23:06] LABS: ALB/GLOB Ratio 0.4 RATIO (0.9-2.4); AST(SGOT) 86 U/L (15-37); Alanine Aminotransfer ALT/SGPT 125 U/L (13-56); Albumin, Serum 2.1 g/dL (3.2-5.0); Alkaline Phosphatase 404 U/L (45-117); Anion Gap 9 (5-15); BUN 43 mg/dL (7-18); BUN/Creat Ratio 18.5 RATIO (10-20); Calcium,Total 9.1 mg/dL (8.5-10.1); Chloride 88 mmol/L (98-107); Creatinine, Serum 2.33 mg/dL (0.55-1.02); EST Glomerular Filtration Rate 22 mL/min (>60); Est Glom Filt Rate - Afr Amer 26 mL/min (>60); Estimated Creatinine Clearance 29.88 ml/min; Globulin 5.5 g/dL (2.2-4.2); Glucose 527 mg/dL (74-106); Potassium 4.1 mmol/L (3.5-5.1); Protein, Total 7.6 g/dL (6.4-8.2); Sodium Level 126 mmol/L (136-145)
--- NOTE | 2020-04-14 23:11 | ED.VISSUMM ---
- ER Visit Summary Date of Service: 04/14/20 Chief Complaint: Syncope History of Present Illness: The patient is a 74 F who presents with syncopal episode that occurred 2 or 3 times today. Patient states she was out for several hours after she passed out. Patient states she felt lightheaded and weak. Patient states her blood sugar was over 500 today. Patient denies any chest pain or shortness of breath. Patient denies any nausea or vomiting. Patient denies any fevers or chills. Patient does admit to some generalized weakness and polydipsia. Patient denies any polyuria, dysuria, or hematuria. Physical Examination: Vital signs are stable. Patient is afebrile. Patient is in no acute distress. Oral mucosa is pink and moist. Neck is supple. Trachea is midline. There is no JVD. Heart was regular rate and rhythm. Lungs are clear and equal bilaterally. Abdomen is soft. Bowel sounds are normal. There is mild diffuse tenderness. Colostomy was intact. There is no discharge or drainage. There is no erythema. Extremities are intact. There is bilateral lower extremity edema. Patient states this is chronic for her. Cranial nerves II through XII are intact. There are no focal motor or sensory deficits. Test Results: EKG was obtained. On my interpretation, there is normal sinus rhythm with a rate of 94. There is left axis deviation. There are no acute ST or T wave changes. Portable 1 view chest x-ray was obtained. On my interpretation, lung muir are clear. There is normal cardiac silhouette. Bony thorax is normal. There is no acute process noted. Radiologist also interpreted the x-ray and agrees. CBC shows mild anemia with a hemoglobin of 9.5 hematocrit 32.4. This is consistent with prior results. There is a slight leukocytosis of 12.1. Comprehensive metabolic profile shows an elevated glucose of 527. BUN was 43 and creatinine was 2.33. These are increased from previous results. Sodium was 126 and chloride was 88. Anion gap was normal. Serum acetone was negative. Urinalysis does not show any evidence of urinary tract infection. Troponin was negative. Emergency Department Course and Treatment: Patient was given a dose of insulin here. Patient is blood sugar improved slightly to 421. Patient was given IV fluids. Case was discussed with the hospitalist, Dr. Gonzalez. He will admit the patient to the hospital. Patient understood and was agreeable with the plan. All questions were answered. Disposition: Admit to hospital Impression: 1. Syncope 2. Hyperglycemia 3. Acute kidney injury This note was generated with [employer] dictation software. It may contain incorrect words, spelling, and punctuation that were not noted in review of the chart prior to signing ED Disposition - Plan for ED Patient: Referrals: Chente Daigle MD [Primary Care Provider] -
[2020-04-14 23:16] LABS: Bedside Glucose 478 mg/dL (70-110)
[2020-04-14] MEDS: Insulin Lispro 100 UNIT/ML INSULN.PEN 15 UNIT SC (23:20)
[2020-04-14 23:31] LABS: Bacteria 0 SEEN /hpf (None Seen); Glucose, Dipstick 1000 mg/dl (Normal); Ketone-Dipstick Negative (Negative); Leukocyte Esterase-Dipstick Negative /ul (Negative); Mucous, Urine 0 SEEN /hpf (<or=2+); Nitrite-Dipstick Negative (Negative); Occult Blood-Urine Negative /ul (Negative); Protein-Dipstick Negative (Negative); Red Blood Cells-Urine 0 SEEN /hpf (0-5); Urine Bilirubin Dipstick Negative (Negative); Urine Urobilinogen Normal (Normal); White Blood Cells 0 SEEN /hpf (0-5)
[2020-04-14 23:33] LABS: Color, Urine Yellow (Yellow); Urine Clarity Clear (Clear)
[2020-04-14 23:44] LABS: Hyaline Cast 0-5 SEEN /lpf (0-5)
[2020-04-14 23:45] LABS: Squamous Epithelial Cells - UA 0-5 SEEN /hpf (5-10)
[2020-04-15] VITALS (11 sets, daily range): BP systolic 112–142; BP diastolic 48–91; PULSE 74–108; RESP 18–19; TEMP 36.3–37.8; O2SAT 95–100; BMI 39.4
--- NOTE | 2020-04-15 00:03 | ED.RN ---
pt refused covid test
[2020-04-15 00:51] LABS: Bedside Glucose 421 mg/dL (70-110)
[2020-04-15] MEDS: 0.9% Normal Saline 1,000 ML 1000 ML IV (00:55)
--- NOTE | 2020-04-15 01:30 | HP.PCM_ITS ---
Problem List (1) Elevated LFTs Status: Acute (2) Syncope Status: Suspected (3) Pseudohyponatremia Status: Acute (4) Acute kidney injury superimposed on CKD Status: Acute (5) Stage III chronic kidney disease Status: Chronic (6) Lymphedema of both lower extremities Status: Chronic (7) Melanoma Status: Chronic (8) History of DVT (deep vein thrombosis) Status: Chronic (9) History of pulmonary embolism Status: Chronic (10) Type II diabetes mellitus Status: Chronic Qualifiers: (11) Cancer of ovary Status: Chronic Qualifiers: (12) Anemia Status: Chronic History of Present Illness Date of Admission: 04/15/20 Chief Complaint: Questionable syncope. The patient is a 74 year old F with multiple medical comorbidities presented to the emergency room because she thinks that she passed out. Patient stated that last night, she went to the bathroom before she goes to bed, was on the toilet, felt dizzy and lightheaded and afterwards, she woke up in the morning at 7:30 and she found herself on the toilet. She stated that she was out for about 7 hours. When she woke up in the morning, she went to the bathroom, felt dizzy again and she was about to fail. At around 1 PM yesterday, she went to the bathroom again, sat on the toilet felt dizzy and lightheaded and she was out for about 5 hours. She woke up around 6 PM and again found herself in the bathroom on the toilet. She is not sure what happened. She said she was dizzy and lightheaded on those 2 occasions. She denied chest pain, shortness of breath, palpitation. Denied fever or chills. She denied cough or sputum production. She reported vague abdominal pain but now, she has no more abdominal pain. She denied urinary symptoms. She stated that his blood sugar has been lately high up to 500s. In the emergency department, she was afebrile, blood pressure l and heart rate were stable, pulse ox was 100% on room air. Routine blood work was remarkable for mild leukocytosis, chronic anemia, sodium of 126, BUN of 43, creatinine is 2.33. LFT revealed elevated liver transaminases and alkaline phosphatase. EKG revealed normal sinus rhythm without evidence of acute ischemic changes or cardiac arrhythmias. Troponin was negative at 0.023. Urinalysis showed no infection. Chest x-ray showed elevated left hemidiaphragm, no acute findings. She is being admitted for acute kidney injury on top of stage III chronic kidney disease, hyperglycemia without evidence of DKA, elevated LFT and questionable syncope for evaluation and treatment. Past Medical History Past Medical History (Chronic Problems): Chronic Problems Stage III chronic kidney disease (Chronic) Venous ulcer of right lower extremity without varicose veins (Chronic) Multiple thyroid nodules (Chronic) Thyromegaly (Chronic) Lymphedema of both lower extremities (Chronic) Melanoma (Chronic) Asthma (Chronic) Reported, severity unknown History of DVT (deep vein thrombosis) (Chronic) History of pulmonary embolism (Chronic) Type II diabetes mellitus (Chronic) Cancer of ovary (Chronic) Anemia (Chronic) Venous insufficiency (Chronic) Poor dentition (Chronic) Allergies clindamycin Allergy (Verified 04/14/20 22:20) Other iodine Allergy (Verified 04/14/20 22:20) rash/incoherent meperidine HCl [From Demerol] Allergy (Verified 04/14/20 22:20) Nausea/vomiting/diarrhea Penicillins Allergy (Verified 04/14/20 22:20) Itching/hives adhesive tape Adverse Reaction (Verified 04/14/20 22:20) blisters BLISTERS aspirin Adverse Reaction (Verified 04/14/20 22:20) nosebleeds diazepam [From Valium] Adverse Reaction (Verified 04/14/20 22:20) Nausea/Vom/Diarrhea egg Adverse Reaction (Verified 04/14/20 22:20) Diarrhea levofloxacin [From Levaquin] Adverse Reaction (Verified 04/14/20 22:20) Vomiting methadone Adverse Reaction (Verified 04/14/20 22:20) Upset Stomach morphine Adverse Reaction (Verified 04/14/20 22:20) Nausea/Vom/Diarrhea sulfamethoxazole [From Bactrim] Adverse Reaction (Verified 04/14/20 22:20) Nausea/Vom/Diarrhea trimethoprim [From Bactrim] Adverse Reaction (Verified 04/14/20 22:20) Nausea/Vom/Diarrhea Home Medications: Ambulatory Orders Medication Instructions Recorded Cyanocobalamin [Vitamin B12] 1,000 mcg PO DAILY@0800 05/29/15 cycloBENZAPRine HCl [Flexeril] 10 mg PO QHS 05/29/15 metFORMIN HCl [Glucophage] 1,000 mg PO BIDCM 05/29/15 Apixaban [Eliquis] 5 mg PO BID 06/12/15 proMETHazine tablet [Phenergan 25 mg PO 4X/DAY PRN PRN #20 tablet 07/20/15 tablet] Albuterol IH (ProAir) [Proair Hfa] 2 puff INHALATION Q6H PRN PRN 05/27/16 Ondansetron HCl [Zofran] 8 mg PO TID PRN PRN 05/27/16 Cholecalciferol (VIT D3) [Vitamin 2,000 unit PO DAILY 04/01/18 D3] Ascorbic Acid [C-1000 with Kelley 500 mg PO DAILY 01/12/19 Hips] DiphenhydrAMINE [Benadryl] 25 mg PO BID PRN 01/12/19 Lorazepam [Ativan] 0.25 - 0.5 mg PO Q6H PRN PRN 01/12/19 Brimonidine Tartrate 0.2% 1 drp EACH EYE BID 04/22/19 [Brimonidine 0.2% 5Ml Bottle] Cetirizine HCl 10 mg PO DAILY PRN 04/22/19 Difluprednate [Durezol] 1 drp EACH EYE QODAY 04/22/19 Oxycodone [Oxyir] 5 mg PO Q4H PRN PRN 04/22/19 Hydrocortisone [Cortef] 10 mg PO BID 01/15/20 Acetaminophen [Tylenol Tablet] 650 mg PO Q6H PRN PRN tab 01/16/20 Oxycodone [Oxyfast] 10 mg PO TID 01/30/20 Torsemide [Demadex] 80 mg PO BID 01/30/20 Surgical History: cholecystectomy, hysterectomy - For uterine fibroids, total hip arthroplasty - Right, total knee arthroplasty - Left, - - Surgery for bilateral carpal tunnel syndrome. Resection of ovarian cancer at [facility] in 2015, debridement of the abdominal wall with wound closure by Dr. Garza in June 2015 Psychiatric History: No pertinent psych hx [employer] History: ovarian cancer, uterine fibroids Lives: Alone Smoking Status: Never smoker Alcohol: None Drugs: None - *Family History Maternal History Items: No pertinent history, - - Denies known maternal medical history including cardiac history. Paternal History Items: No pertinent history, - - Denies known paternal medical history including cardiac history. Review of Systems Constitutional: Reports: Anorexia, Weakness, Fatigue. Denies: Chills, Fever Eyes: Denies: Blurred vision, Double vision, Drainage, Redness HEENT: Denies: Difficulty Hearing, Ear Pain, Eye Pain, Nasal bleeding, Sore Throat Cardiovascular: Reports: Light Headedness, Syncope. Denies: Chest Pain, Chest Pressure, Edema, Heaviness, Palpitations Respiratory: Denies: Cough, Pleuritic Pain, Shortness of Breath, Sputum production, Wheezing Gastrointestinal: Reports: Abdominal Pain. Denies: Constipation, Diarrhea, Nausea, Vomiting Genitourinary: Denies: Dysuria, Frequency, Hematuria Musculoskeletal: Denies: Arm Pain, Back Pain, Foot Pain Skin: Denies: Dryness, Rash Neurological: Denies: Balance problems, Blurred vision, Double vision, Change in Speech, Slurred speech, Headaches, Incoordination Psychiatric: Reports: Anxiety. Denies: Depression Endocrine: Denies: Change in Body Habitus, Polydipsia, Polyuria VTE Information - Inpt Only VTE Present on Admission: No VTE Mechan Device Prophylaxis: None VTE Pharm Prophylaxis ordered?: No Patient Problems: Active and Suspected Problems Elevated LFTs (Acute) Syncope (Suspected) Pseudohyponatremia (Acute) Acute kidney injury superimposed on CKD (Acute) - Physical Exam Vitals/I&O's: Vital Signs Temp Pulse Resp BP Pulse Ox 97.4 F L 92 19 H 112/91 H 100 04/15/20 01:07 04/15/20 01:07 04/15/20 01:07 04/15/20 01:07 04/15/20 01:07 Oxygen Delivery Method Room Air Weight: 197 lb Body Mass Index (BMI) 39.7 Finger Stick Blood Glucose 453 Intake and Output for Last 24 Hours 04/13/20 04/14/20 04/15/20 23:59 23:59 23:59 Intake Total 500 / 500 Balance 500 / 500 General: Alert, Oriented x3, Cooperative, No apparent distress HEENT: Atraumatic, PERRLA, EOMI, Normocephalic Oral: Moist Mucosa, No Gingival or Mucosal Lesions/ Ulcerations Neck: Supple, No JVD, Negative Carotid Bruits, Trachea Midline, Thyroid Normal Size and Texture Lungs: Clear to auscultation, Normal air movement, No rhonchi, No wheeze, No rales, Diminished Cardiovascular: Regular rate, Regular Rhythm, Normal S1, Normal S2, PMI Normal Abdomen: Bowel Sounds Present, Soft, Non Tender, Non-Distended, No Hepato- splenomegaly, - - Colostomy bag in place. Extremities: No clubbing, No cyanosis, Edema, - - Left leg: Lymphedema, chronic ulcers, erythema. Right leg: Pitting edema. Skin: No rashes, Ulcer/ Wound Lymphatic: No Cervical, Supraclavicular, or Inguinal Adenopathy Neurological: Cranial nerves II-XII grossly intact, Motor Exam 5/5 strength throughout Psych/Mental Status: Normal Affect, Appropriate, Alert and oriented to time, place, person, mood and affect Laboratory Results 04/14/20 22:35: WBC 12.1 H, RBC 3.81 L, Hgb 9.5 L, Hct 32.4 L, MCV 85.0, MCH 24.9 L, MCHC 29.3 L, RDW Std Deviation 54.3 H, RDW Coeff of Zuri 17.7 H, Plt Count 195, MPV 11.3, Immature Gran % (Auto) 0.700, Neut % (Auto) 88.3 H, Lymph % (Auto) 4.6 L, Grady % (Auto) 5.9, Eos % (Auto) 0.3, Baso % (Auto) 0.2, Absolute Neuts (auto) 10.7 H, Absolute Lymphs (auto) 0.56 L, Nucleated RBC % 0, Plt Morphology Comment CLUMPED 04/14/20 22:35: Sodium 126 L, Potassium 4.1, Chloride 88 L, Carbon Dioxide 29.0, Anion Gap 9, BUN 43 H, Creatinine 2.33 H, Estim Creat Clear Calc 29.88, Est GFR (MDRD) Af Amer 26 L, Est GFR (MDRD) Non-Af 22 L, BUN/Creatinine Ratio 18.5, Glucose 527 H*, Calcium 9.1, Total Bilirubin 0.50, AST 86 H, ALT 125 H, Alkaline Phosphatase 404 H, Troponin I 0.023, Total Protein 7.6, Albumin 2.1 L, Globulin 5.5 H, Albumin/Globulin Ratio 0.4 L 04/14/20 22:35: Acetone Level NEGATIVE 04/14/20 23:05: Urine Color Yellow, Urine Clarity Clear, Urine pH 5.0, Ur Specific [place] 1.010, Urine Protein Negative, Urine Glucose (UA) 1000 H, Urine Ketones Negative, Urine Occult Blood Negative, Urine Nitrite Negative, Urine Bilirubin Negative, Urine Urobilinogen Normal, Ur Leukocyte Esterase Negative, Urine RBC 0 SEEN, Urine WBC 0 SEEN, Ur Squamous Epith Cells 0-5 SEEN, Urine Bacteria 0 SEEN, Hyaline Casts 0-5 SEEN, Urine Mucus 0 SEEN 04/14/20 23:12: POC Glucose 478 H* 04/15/20 00:43: POC Glucose 421 H Clinical Impression(s) from Imaging Studies Chest X-Ray 04/14/20 22:50 IMPRESSION: No acute cardiopulmonary disease. Chronic elevation of left hemidiaphragm. Arthritis with likely old Hill-Sachs fracture of the right humeral head. at 2340 Reported and signed by: Сергей Díaz MD Electronically Signed: еСргей Díaz MD at 23:39 EST Tel , Service support , Current Medications Sodium Chloride () 1,000 mls @ 1,000 mls/hr IV .Q1H ONE Stop: 04/15/20 01:34 Last Admin: 04/15/20 00:55 Dose: 1,000 mls/hr Documented by: Assessment/Plan All Active Problems Elevated LFTs (Acute) Pseudohyponatremia (Acute) Acute kidney injury superimposed on CKD (Acute) This is a 74 years old female patient presented to the emergency room because of what she described as passing out while on the toilet for several hours which happened twice, found to have uncontrolled blood sugar, sugar has been in the range of 500s, found to have acute kidney injury on top of stage III chronic kidney disease as well as elevated LFT and hyponatremia and she is being admitted for evaluation and treatment. #1 questionable syncope versus encephalopathy: History is unclear, could be due to polypharmacy as below. Patient stated that she was on the toilet for 7 hours on one occasion and almost 5 hours on the other occasion. She reported dizziness before that incident. EKG revealed normal sinus rhythm without radha dence of acute segment changes. She has no focal deficit on physical exam. She is on oxycodone TID, as well as oxycodone PRN, PRN Phenergan, PRN Benadryl and Flexeril QHS. But she stated that she did not take Phenergan, Benadryl and Flexeril as well as Ativan in the last couple of days. Plan: Admit to PCU, cardiac monitoring, IV fluids for hydration, input output chart, IV antiemetics, CT scan brain, discontinue Phenergan, Benadryl, Flexeril and Ativan, serum ammonia, repeat CBC and CMP tomorrow morning, PT OT evaluation and treatment. #2 acute kidney injury on top of stage III chronic kidney disease: Likely due to poor oral intake and hyperglycemia. Baseline creatinine has been around 1.3 to 1.8 mg/dL. Admission creatinine is 2.33. Patient looks dehydrated. Plan: IV fluids, input output chart, avoid nephrotoxic drugs, discontinue diuretics, repeat CMP tomorrow morning. #3 hyponatremia: It is due to pseudohyponatremia secondary to hyperglycemia. Blood glucose is 527. Corrected sodium for glucose is 133 mmol/L which is normal. #4 hyperglycemia/uncontrolled type 2 diabetes mellitus: Without evidence of DKA. Blood sugar was 527, received insulin in the ED. Plan: Accu-Cheks every 4 hours, sliding scale every 4 hours, check hemoglobin A1c, start Lantus twice daily, diabetic education. #5 elevated LFT: Unclear etiology, no abdominal pain, no right upper quadrant tenderness. She is status post cholecystectomy. Baseline LFT was normal 1 month ago. Plan: IV fluids, check serum lipase, repeat CMP tomorrow morning. #6 history of DVT: Continue Eliquis. #7 chronic lymphedema/venous ulcers of the right lower extremity: With chronic erythema and chronic ulcers. We will consult wound care nurse. #8 history of ovarian cancer/melanoma: Status post surgery back in 2013 as well as chemotherapy, status post colostomy. #9 chronic pain syndrome: Continue oxycodone 10 mg 3 times daily along with OxyIR as needed every 4 hours. Patient has been following up with the palliative care team. She states that with this regimen, her pain is still was not controlled. Plan to continue same. #10 anxiety: Hold Ativan for now. #11: DVT prophylaxis: Continue Eliquis. This note was generated with [employer] dictation software. It may contain incorrect words, spelling, and punctuation that were not noted in checking the note before signing. Inpatient E&M: 73459 Init Hosp L3
--- NOTE | 2020-04-15 01:31 | CT_ITS ---
HISTORY: DIZZINESS ANS SYNCOPE X 2 YESTERDAY,ELEVATED BLOOD SUGARHX:DIABETES,HTN,ASTHMA,MELANOMA,OVARIAN CANCER WITH METS,CKD STAGE 3 Technique:CT Head or Brain W/O Contrast Injection. Sagittal and coronal 2-D reformats Number of Images including paperwork:247 Comparison: A PET CT is available from February 16, [address] scan of the brain is from August 18, 2018 Findings: Periventricular deep and subcortical white matter disease is present. Physiologic calcification within the medial aspect of bilateral lentiform nuclei is unchanged Paranasal sinuses are clear. The brain is atrophic. Calcific ASCVD involves intracranial arteries. No acute intracranial edema or hemorrhage. No acute abnormality of orbits. Middle ear cavities and mastoid air cells are well aerated. Skull is normal. CT/Brain/Head without Contrast IMPRESSION: No acute intracranial abnormality. Chronic changes as above. ASPECT 10. Individualized dose optimization techniques were used for this CT. at 0330 Reported and signed by: Сергей Díaz MD Electronically Signed: Сергей Díaz MD at 3:29 EST Tel , Service support ,
--- NOTE | 2020-04-15 01:42 | PCS.PANDOC ---
PANDEMIC DOCUMENTATION INITIATED: Date: 04/15/2020 Time: 6642
[2020-04-15 02:30] LABS: Absolute Lymphocyte Count 0.69 X10^3/uL (0.83-4.51); Absolute Neutrophil Count 8.4 X10^3/uL (2.0-7.7); Basophil# 0.02 X10^3/uL; Basophil% 0.2 % (0-1); Eosinophil# 0.09 X10^3/uL; Eosinophils% 0.9 % (0-5); Hematocrit 31.3 % (37-47); Hemoglobin 9.3 g/dL (12.0-15.0); Lymphocyte # 0.69 X10^3/ul (4.0); Mean Corp Hgb Conc 29.7 g/dL (32-36); Mean Corpuscular Hgb 25.1 pg (27.0-32.0); Mean Corpuscular Volume 84.4 fL (81-99); Mean Platelet Vol. 9.4 fl (6.2-12.0); Monocyte# 0.63 X10^3/uL; Monocyte% 6.4 % (0-10); NRBC Flagged by Analyzer 0 % (0-5); Neutrophil # 8.36 X10^3/uL (2.7-7.7); Neutrophil % 84.7 % (47-70); Platelet Count 401 K/mm3 (150-450); RBC Distribution Width CV 17.5 % (11.6-14.6); RBC Distribution Width SD 53.4 fl (35.1-43.9); Red Blood Count 3.71 M/mm3 (4.2-5.4); White Blood Count 9.9 K/mm3 (4.4-11.0)
[2020-04-15 02:39] LABS: International Normalized Ratio 1.7; Prothrombin Time (Protime)PT. 19.8 SECONDS (11.7-14.9)
[2020-04-15 02:46] LABS: Lipase 131 U/L (73-393)
[2020-04-15] MEDS: oxyCODONE 5 MG Tablet PO ×3 (02:57→19:03)
[2020-04-15] MEDS: Insulin Lispro 100 UNIT/ML INSULN.PEN SC ×6 (02:58→22:01)
[2020-04-15 03:00] LABS: ALB/GLOB Ratio 0.4 RATIO (0.9-2.4); AST(SGOT) 60 U/L (15-37); Alanine Aminotransfer ALT/SGPT 109 U/L (13-56); Albumin, Serum 2.1 g/dL (3.2-5.0); Alkaline Phosphatase 387 U/L (45-117); Ammonia < 10.0 umol/L (11-32); Anion Gap 9 (5-15); BUN 40 mg/dL (7-18); BUN/Creat Ratio 21.1 RATIO (10-20); Chloride 92 mmol/L (98-107); EST Glomerular Filtration Rate 27 mL/min (>60); Est Glom Filt Rate - Afr Amer 33 mL/min (>60); Estimated Creatinine Clearance 36.29 ml/min; Globulin 5.2 g/dL (2.2-4.2); Glucose 297 mg/dL (74-106); Potassium 3.3 mmol/L (3.5-5.1); Protein, Total 7.3 g/dL (6.4-8.2); Sodium Level 132 mmol/L (136-145)
[2020-04-15] MEDS: 0.9% Normal Saline 1,000 ML 100 ML IV ×2 (03:02→12:53)
[2020-04-15 03:21] LABS: Bedside Glucose 282 mg/dL (70-110)
[2020-04-15] MEDS: oxyCODONE 5 MG Tablet 10 MG PO ×3 (06:11→22:00)
[2020-04-15 06:41] LABS: Bedside Glucose 175 mg/dL (70-110)
--- NOTE | 2020-04-15 07:17 | PCM.PN.HOSP ---
Patient Problems: Active and Suspected Problems Elevated LFTs (Acute) Syncope (Suspected) Pseudohyponatremia (Acute) Acute kidney injury superimposed on CKD (Acute) Reason for Visit: Follow-up for passing out, syncope x2. High blood sugar, acute kidney injury on CKD Objective: Seen and examined. Patient has very complex medical history ovarian cancer and melanoma in pelvis for which she had colectomy. Colostomy back shows liquidy stool, greenish in color. Patient also has a stage III chronic kidney disease, diabetes mellitus type 2, history of DVT and PE, anemia of chronic disease and chronic venous insufficiency and multiple thyroid nodules. Patient history is not very clear. She states he passed 2 times on the toilet for several hours probably 5 to 6 hours. First time she woke up at 7:30 AM when she found herself on the toilet seat the again she felt dizzy and lightheaded in the afternoon and passed out for 5 hours. She has dizziness, lightheadedness. Denies any new urinary symptoms. She has chronic bilateral lower extremity swelling, venous insufficiency. greeter shows sinus tachycardia with PVCs, heart rate in 100s Physical exam General: Alert, Oriented x3, Cooperative HEENT: Atraumatic, PERRLA, EOMI, Normocephalic Oral: No Gingival or Mucosal Lesions/ Ulcerations Neck: Supple, No JVD, Negative Carotid Bruits Lungs: Air entry diminished in bilateral lung bases. No crepitation/rhonchi Cardiovascular: Regular rate, Regular Rhythm, Normal S1, Normal S2, No murmurs Abdomen: Colostomy bag present. No red or black stool in the bag. Parastomal hernia present. Bowel Sounds Present, Soft, Non Tender, Non-Distended : No renal angle tenderness. No suprapubic tenderness. Extremities: Bilateral lower leg edema, Capillary Refill Less than 3 Seconds Skin: No rashes, No breakdown Musculoskeletal: No Tenderness to Palpation of Joints or Extremities Neurological: Cranial nerves II-XII grossly intact, Deep Tendon Reflexes 2+/4 and Symmetrical, Neuro grossly intact Psych/Mental Status: Normal Affect, Appropriate. Vitals/I&O's: Vital Signs Temp Pulse Resp BP Pulse Ox 100.1 F H 100 18 123/48 H 99 04/15/20 06:09 04/15/20 06:09 04/15/20 06:09 04/15/20 06:09 04/15/20 06:09 Oxygen Delivery Method Room Air Weight: 195 lb 1.745 oz Body Mass Index (BMI) 39.4 Finger Stick Blood Glucose 453 Intake and Output for Last 24 Hours 04/13/20 04/14/20 04/15/20 23:59 23:59 23:59 Intake Total 1500 / 1500 Balance 1500 / 1500 Laboratory Results 04/14/20 22:35: WBC 12.1 H, RBC 3.81 L, Hgb 9.5 L, Hct 32.4 L, MCV 85.0, MCH 24.9 L, MCHC 29.3 L, RDW Std Deviation 54.3 H, RDW Coeff of Zuri 17.7 H, Plt Count 195, MPV 11.3, Immature Gran % (Auto) 0.700, Neut % (Auto) 88.3 H, Lymph % (Auto) 4.6 L, Creek % (Auto) 5.9, Eos % (Auto) 0.3, Baso % (Auto) 0.2, Absolute Neuts (auto) 10.7 H, Absolute Lymphs (auto) 0.56 L, Nucleated RBC % 0, Plt Morphology Comment CLUMPED 04/14/20 22:35: Sodium 126 L, Potassium 4.1, Chloride 88 L, Carbon Dioxide 29.0, Anion Gap 9, BUN 43 H, Creatinine 2.33 H, Estim Creat Clear Calc 29.88, Est GFR (MDRD) Af Amer 26 L, Est GFR (MDRD) Non-Af 22 L, BUN/Creatinine Ratio 18.5, Glucose 527 H*, Calcium 9.1, Total Bilirubin 0.50, AST 86 H, ALT 125 H, Alkaline Phosphatase 404 H, Troponin I 0.023, Total Protein 7.6, Albumin 2.1 L, Globulin 5.5 H, Albumin/Globulin Ratio 0.4 L 04/14/20 22:35: Acetone Level NEGATIVE 04/14/20 23:05: Urine Color Yellow, Urine Clarity Clear, Urine pH 5.0, Ur Specific Roulette 1.010, Urine Protein Negative, Urine Glucose (UA) 1000 H, Urine Ketones Negative, Urine Occult Blood Negative, Urine Nitrite Negative, Urine Bilirubin Negative, Urine Urobilinogen Normal, Ur Leukocyte Esterase Negative, Urine RBC 0 SEEN, Urine WBC 0 SEEN, Ur Squamous Epith Cells 0-5 SEEN, Urine Bacteria 0 SEEN, Hyaline Casts 0-5 SEEN, Urine Mucus 0 SEEN 04/14/20 23:12: POC Glucose 478 H* 04/15/20 00:43: POC Glucose 421 H 04/15/20 02:20: Ammonia < 10.0 L 04/15/20 02:20: Lipase 131 04/15/20 02:20: PT 19.8 H, INR 1.7 04/15/20 02:20: WBC 9.9, RBC 3.71 L, Hgb 9.3 L, Hct 31.3 L, MCV 84.4, MCH 25.1 L, MCHC 29.7 L, RDW Std Deviation 53.4 H, RDW Coeff of Zuri 17.5 H, Plt Count 401, MPV 9.4, Immature Gran % (Auto) 0.800, Neut % (Auto) 84.7 H, Lymph % (Auto) 7.0 L, Creek % (Auto) 6.4, Eos % (Auto) 0.9, Baso % (Auto) 0.2, Absolute Neuts (auto) 8.4 H, Absolute Lymphs (auto) 0.69 L, Nucleated RBC % 0 04/15/20 02:20: Sodium 132 L, Potassium 3.3 L, Chloride 92 L, Carbon Dioxide 31.0, Anion Gap 9, BUN 40 H, Creatinine 1.90 H, Estim Creat Clear Calc 36.29, Est GFR (MDRD) Af Amer 33 L, Est GFR (MDRD) Non-Af 27 L, BUN/Creatinine Ratio 21.1 H, Glucose 297 H, Calcium 9.0, Total Bilirubin 0.60, AST 60 H, ALT 109 H, Alkaline Phosphatase 387 H, Total Protein 7.3, Albumin 2.1 L, Globulin 5.2 H, Albumin/Globulin Ratio 0.4 L 04/15/20 02:55: POC Glucose 282 H 04/15/20 06:07: POC Glucose 175 H Current Medications Apixaban (Apixaban 5 Mg Tablet) 5 mg PO BID [facility] Brimonidine Tartrate (Brimonidine 0.2% 5ml Bottle) 1 drop EACH EYE BID [place] Dextrose (Dextrose 50%-Water 25 Gm/50 Ml Disp.Syrin) 0 gm IV X1 PRN; Protocol PRN Reason: Hypoglycemia Glucagon (Glucagon 1 Mg/Ml Syringe) 1 mg IM .X1 PRN PRN Reason: Hypoglycemia Hydrocortisone (Hydrocortisone 10 Mg Tablet) 10 mg PO DAILYCM [place] Hydrocortisone (Hydrocortisone 10 Mg Tablet) 5 mg PO DINNER [facility] Sodium Chloride () 1,000 mls @ 100 mls/hr IV .Q10H [facility] Last Admin: 04/15/20 03:02 Dose: 100 mls/hr Documented by: Sodium Chloride () 250 mls @ 15 mls/hr IV .[id number] PRN PRN Reason: Saline Flush Sodium Chloride () 250 mls @ 15 mls/hr IV .[id number] PRN PRN Reason: Additional IVPB Infusion Insulin Glargine (Insulin Glargine 100 Units/Ml Pen) 10 units SC BID [facility] Insulin Human Lispro (Insulin Lispro 100 Unit/Ml Insuln.Pen) 0 unit SC Q4 [facility]; Protocol Last Admin: 04/15/20 06:11 Dose: 2 u Documented by: Lorazepam (Lorazepam 0.5 Mg Tablet) 0.25 - 0.5 mg PO Q6H PRN PRN PRN Reason: ANXIETY Ondansetron HCl (Ondansetron 4 Mg/2 Ml Vial) 4 mg IV Q8H PRN PRN PRN Reason: NAUSEA/VOMITING Oxycodone HCl (Oxycodone 5 Mg Tablet) 10 mg PO TID [facility] Last Admin: 04/15/20 06:11 Dose: 10 mg Documented by: Oxycodone HCl (Oxycodone 5 Mg Tablet) 5 mg PO Q4H PRN PRN PRN Reason: Pain Score 1-10 Last Admin: 04/15/20 02:57 Dose: 5 mg Documented by: Sodium Chloride (0.9% Saline Lock 10 Ml Syringe) 10 - 40 ml IV UD PRN PRN Reason: SALINE FLUSH STROKE Vital Signs/Narrative: Vital Signs Temp Pulse Resp BP Pulse Ox 04/15/20 06:09 100.1 F H 100 18 123/48 H 99 Medical Necessity - Tobacco Use Smoking Status: Never smoker Assessment/Plan All Active Problems Elevated LFTs (Acute) Pseudohyponatremia (Acute) Acute kidney injury superimposed on CKD (Acute) This is a 74 years old female patient presented to the emergency room because of what she described as passing out while on the toilet for several hours which happened twice, found to have uncontrolled blood sugar, sugar has been in the range of 500s, found to have acute kidney injury on top of stage III chronic kidney disease as well as elevated LFT and hyponatremia and she is being admitted for evaluation and treatment. #1 Altered mental status most probably encephalopathy: From history it seems most probably it is not syncope as it was not quick recovery and recovery was not total. On first instance it was about 7 hours and second 5 hours. Neuro exam is nonfocal. EKG revealed normal sinus rhythm without evidence of acute segment changes. She is on oxycodone TID, as well as oxycodone PRN, PRN Phenergan, PRN Benadryl and Flexeril QHS. But she stated that she did not take Phenergan, Benadryl and Flexeril as well as Ativan in the last couple of days. We will hold Phenergan, Benadryl, Ativan or other sedating for tranquilizer medication. Serum ammonia was less than 10. A1c 11.2. Strict input and output. MRI brain and EEG ordered. Will get neurology evaluation after imaging EEG is done. Patient had echo in December 2019 reported as Interpretation Summary Normal LV size. Mild concentric left ventricular hypertrophy. Left ventricular systolic function is normal. The estimated ejection fraction is 60 %. Stage 1 diastolic dysfunction. Mild tricuspid valve insufficiency. Pulmonary artery systolic pressure is 24 mmHg. #2 acute kidney injury onstage III chronic kidney disease, diabetic nephropathy: Patient looks dehydrated. IV fluid, avoid nephrotoxic medications. Hold diuretics. Monitor kidney function. Baseline creatinine has been around 1.3 to 1.8 mg/dL. Admission creatinine is 2.33. Repeat creatinine is 1.9. #3 Hypertonic hyponatremia from hyperglycemia and dehydration: Blood glucose is 527. Calculated serum osmolarity 297 slightly above normal limit of 295. Corrected sodium for glucose is 133 mmol/L which is still lower than the normal. #4 hyperglycemia/uncontrolled type 2 diabetes mellitus: Without evidence of DKA. Blood sugar was 527, received insulin in the ED. A1c is 11.2 consistent with uncontrolled hyperglycemia for a long time. Accu-Cheks before meals and at bedtime and cover with sliding scale insulin. Diabetic education #5 Elevated transaminases probably metabolic cause, nonalcoholic steatohepatitis : Unclear etiology, no abdominal pain, no right upper quadrant tenderness. She is status post cholecystectomy. ALT 125, AST 86, alkaline phosphatase 404. Ammonia less than 10. #6 history of DVT: Continue Eliquis. #7 chronic lymphedema/venous ulcers of the right lower extremity: With chronic erythema and chronic ulcers. consult wound care nurse. #8 history of ovarian cancer/melanoma: Status post surgery back in 2013 as well as chemotherapy, status post colostomy. #9 chronic pain syndrome: Continue oxycodone 10 mg 3 times daily along with OxyIR as needed every 4 hours. Patient has been following up with the palliative care team. She states that with this regimen, her pain is still was not controlled. Plan to continue same. #10 anxiety: Hold Ativan for now. #11: DVT prophylaxis: Continue Eliquis.
[2020-04-15 08:06] LABS: Hemoglobin A1c 11.2 % (3.8-5.6)
[2020-04-15] MEDS: APIXABAN 5 MG TABLET PO ×2 (09:00→22:01)
[2020-04-15] MEDS: BRIMONIDINE 0.2% 5ML BOTTLE 1 DRP EACH EYE (09:00)
[2020-04-15] MEDS: Hydrocortisone 10 MG Tablet PO (09:00)
--- NOTE | 2020-04-15 11:05 | NURSING ---
In to assess the colostomy appliance. Pt stated the appliance was changed yesterday by family. is intact and pt states should leave in place since it was just changed. pt does have a very large peristomal hernia that has been present for quite some time. pt does have palliative care at home. will continue to assess and change the appliance as needed.
[2020-04-15 12:00] LABS: Bedside Glucose 294 mg/dL (70-110)
--- NOTE | 2020-04-15 13:54 | MRI_ITS ---
STUDY: MRI BRAIN WITHOUT CONTRAST REASON FOR EXAM: Female, 74 years old. altered mental status, falls, hx ovarian ca,melanome pelvis TECHNIQUE: Standardized multiplanar fat and water weighted pulse sequences were obtained. COMPARISON: CT brain 04/15/2020 FINDINGS: There is mild cerebral atrophy with widening of the extra-axial spaces and ventricular dilatation. Normal white matter tracts of the supratentorial brain. There is no evidence for recent intracranial ischemia or other cause of cytotoxic edema on diffusion weighted imaging (DWI). Normal bilateral basal ganglia. Normal thalami. There is no extra-axial fluid accumulation. Normal flow voids within the major intracranial circulation suggesting patency by spin echo criteria. Normal sella turcica, pituitary gland, infundibular stalk, optic chiasm and hypothalamus. Normal tectal plate and pineal gland. Normal midbrain, kaden and medulla. Normal cerebellum. Normal basal cisterns. Normal bilateral temporal bones. Normal bilateral internal auditory canals. No demonstrated orbital abnormality, within the constraints of a routine brain study. Normal visualized paranasal sinuses. Normal calvarium and skull base. Normal visualized soft tissue structures. Normal visualized upper cervical spine. Perifalcine calcification or lipoma. MRI/Brain without Contrast IMPRESSION: Involutional changes of the brain, as described above. Electronically Signed: Selvin Witt MD at 22:39 EST , Service support ,
[2020-04-15 14:46] LABS: Bedside Glucose 291 mg/dL (70-110)
--- NOTE | 2020-04-15 14:50 | NURSING ---
RN CM Assessment Introduced role of RN CM to patient.? Patient is alert, oriented and able?to participate in RN CM Assessment. ?Care providers, pharmacy, and demographics verified. Admit Dx: GREGORY on CKD, ? syncope, hyperglycemia Re-Admit: No Barriers/Issues: Patient lives alone. Dtr in process of having a ramp built to enter patient home. Pending PT/OT note per eval for recommendations. Patient states will not go to a SNF and wishes to have [facility] for PT if additional therapy is needed as she is considered home bound and would have great difficulty getting out of her home to go to outpatient PT. Patient states used to see Dr Estevez but states told there was nothing more he could do for her. [facility] has an appointment on Apr [address] Drew at [facility] in [place] in regards to see if the tumor can be removed. PCP: Chente Daigle Specialists: None- see note above Preferred [facility]acy: [facility] Insurance: [employer] [facility] Rx Benefit:?Yes ?LNOK: Mikhail Keys and Dtr Eliz Boo LW/HPOA: Yes- aware not on file at [facility]. HPOA- mikhail Keys and Dtr Eliz Boo Living Arrangements:? Lives alone in a 2SH, has 1st ne set up. 3 steps to enter home. ADL?s: Ambulates with rollator, independent with ADLs Transportation: Dtr Eliz Boo and same upon DC DME: Rollator, shower chair- does not use as it does not fit in her tub, [facility], , in process of having ramp built. HHC: None, preference [facility]. [facility], [facility]. [facility] SNF: [facility] Goal: Home with HHC if PT/OT needed. Denies any other issues, concerns, or questions with DC planning at this time. Aware RNCM remains available for any emerging needs that may arise. DC PLAN: Home with possible HHC. AJ Olivier
--- NOTE | 2020-04-15 15:22 | CASEMGMT ---
Patient is active with Palliative Care. SW faxed clinicals to Palliative so they are aware she is in the hospital. Sena FONTANA MSW
--- NOTE | 2020-04-15 15:44 | CHAPLAIN ---
Type of Pastoral Visit _x__ Initial Visit ___ Follow-up Visit ___ On-call Visit ___ General Patient Visit ___ Spiritual Assessment ___ Family Conference ___ Bereavement ___ Rapid Response ___ Code Blue ___ Other (describe below) Pastoral Care Referral From ___ Patient ___ Family ___ Nurse ___ Physician ___ Frame And Scrap Crusher ___ Route Driver Coin Machines ___ Other (describe below) Sacrament/Intervention ___ Active listening ___ Anointing ___ Adventism ___ Bereavement ___ Communion ___ Radha exploration ___ ___ Life review _x__ Prayer ___ Reconciliation ___ Sacrament of Sick _x__ Supportive presence ___ Wedding ___ Other (describe below) Pastoral Comments
--- NOTE | 2020-04-15 15:47 | NURSING ---
RNCM Note: Called [facility] [phone], s/w Melani whom s/w the medical staff services coordinator and states that they are available to accept patient for PT/OT for anticipated DC tomorrow 04/16/20. States does not have SN available- aware no need for SN at this time. Patient second preference for [facility] was [facility]. Per Melani to Fax clinical/inquiry to [phone]. This property underwriter faxed over face sheet, Insurance info, OT note, HH order. PT note still pending entry. RNCM to f/u on need to fax along with additional information for start of care. AJ Olivier
[2020-04-15] MEDS: Hydrocortisone 10 MG Tablet 5 MG PO (17:27)
[2020-04-15 17:40] LABS: Bedside Glucose 270 mg/dL (70-110)
[2020-04-15 22:50] LABS: Bedside Glucose 280 mg/dL (70-110)
[2020-04-16] VITALS (9 sets, daily range): BP systolic 102–123; BP diastolic 50–69; PULSE 84–102; RESP 18; TEMP 36.9–37.1; O2SAT 94–100
[2020-04-16] MEDS: 0.9% Normal Saline 1,000 ML 100 ML IV (00:13)
[2020-04-16] MEDS: oxyCODONE 5 MG Tablet PO ×3 (00:13→19:53)
[2020-04-16] MEDS: Insulin Lispro 100 UNIT/ML INSULN.PEN SC ×5 (02:04→22:57)
[2020-04-16 02:11] LABS: Bedside Glucose 234 mg/dL (70-110)
[2020-04-16] MEDS: oxyCODONE 5 MG Tablet 10 MG PO ×3 (06:17→22:59)
[2020-04-16 06:41] LABS: Bedside Glucose 152 mg/dL (70-110)
--- NOTE | 2020-04-16 08:30 | TELEMED_ITS ---
[facility] has confirmed receipt of a request for visit. This document confirms receipt of the order initiating the consult. To find the results of the consultation, please view the patient's reports for the scanned Telemed Consult.
[2020-04-16] MEDS: Hydrocortisone 10 MG Tablet PO (08:42)
[2020-04-16] MEDS: Glucerna Shake 120 ML LIQUID PO ×3 (08:42→17:00)
[2020-04-16] MEDS: Juven (unflavored) Packet 1 PACKET PO ×2 (08:42→17:00)
[2020-04-16] MEDS: APIXABAN 5 MG TABLET PO ×2 (08:42→22:57)
[2020-04-16] MEDS: BRIMONIDINE 0.2% 5ML BOTTLE 1 DRP EACH EYE (08:42)
[2020-04-16 08:55] LABS: Absolute Lymphocyte Count 0.71 X10^3/uL (0.83-4.51); Absolute Neutrophil Count 6.2 X10^3/uL (2.0-7.7); Basophil# 0.02 X10^3/uL; Basophil% 0.3 % (0-1); Eosinophil# 0.12 X10^3/uL; Eosinophils% 1.5 % (0-5); Hematocrit 27.2 % (37-47); Hemoglobin 8.1 g/dL (12.0-15.0); Lymphocyte # 0.71 X10^3/ul (4.0); Mean Corp Hgb Conc 29.8 g/dL (32-36); Mean Corpuscular Hgb 24.7 pg (27.0-32.0); Mean Corpuscular Volume 82.9 fL (81-99); Mean Platelet Vol. 10.9 fl (6.2-12.0); Monocyte# 0.74 X10^3/uL; Monocyte% 9.4 % (0-10); NRBC Flagged by Analyzer 0 % (0-5); Neutrophil # 6.22 X10^3/uL (2.7-7.7); Neutrophil % 78.5 % (47-70); POSITIVE COUNT YES; Platelet Count 125 K/mm3 (150-450); RBC Distribution Width CV 17.8 % (11.6-14.6); RBC Distribution Width SD 53.9 fl (35.1-43.9); Red Blood Count 3.28 M/mm3 (4.2-5.4); White Blood Count 7.9 K/mm3 (4.4-11.0)
[2020-04-16 08:57] LABS: Differential Indicated SCAN CRITERIA MET
[2020-04-16 09:11] LABS: ALB/GLOB Ratio 0.3 RATIO (0.9-2.4); AST(SGOT) 18 U/L (15-37); Alanine Aminotransfer ALT/SGPT 50 U/L (13-56); Albumin, Serum 1.5 g/dL (3.2-5.0); Alkaline Phosphatase 229 U/L (45-117); Anion Gap 5 (5-15); BUN 27 mg/dL (7-18); BUN/Creat Ratio 22.3 RATIO (10-20); Calcium,Total 8.3 mg/dL (8.5-10.1); Chloride 100 mmol/L (98-107); Creatinine, Serum 1.21 mg/dL (0.55-1.02); EST Glomerular Filtration Rate 46 mL/min (>60); Est Glom Filt Rate - Afr Amer 56 mL/min (>60); Estimated Creatinine Clearance 56.99 ml/min; Globulin 4.4 g/dL (2.2-4.2); Glucose 141 mg/dL (74-106); Magnesium 1.4 mg/dL (1.6-2.6); Phosphorus 2.3 mg/dL (2.5-4.9); Potassium 3.8 mmol/L (3.5-5.1); Protein, Total 5.9 g/dL (6.4-8.2); Sodium Level 131 mmol/L (136-145)
[2020-04-16 09:16] LABS: Platelet Morphology CLUMPED
--- NOTE | 2020-04-16 09:20 | NURSING ---
Ostomy appliance remains intact. a moderate amount of flatus noted. small amount of soft formed brown stool noted in the appliance. will monitor.
--- NOTE | 2020-04-16 10:19 | NURSING ---
wound photo: bilateral lower legs
[2020-04-16 11:45] LABS: Bedside Glucose 313 mg/dL (70-110)
--- NOTE | 2020-04-16 12:27 | CASEMGMT ---
SW reviewed patient's OT note from today and she is not doing well with therapy. SW went into her room to talk with her. Her daughter was also present. ROXIE introduced self and role at [facility]. SW discussed patient not doing well with therapy and how is she going to manage at home. She said she will manage with the help of her kids. She said, I'm not briseida to no senior living. Her daughter then spoke up and said she does not want her to go to a senior living. She said her siblings help care for patient. However, they do not live in the home. They asked about home health and SW told them the RN YENNY did get this set up. SW again expressed that patient is very weak due to her pain. Patient said the pain is always there and she will manage. SW asked if she will need transportation home and she said her family will take her. SW asked if she is going to be able to get in and out of a vehicle and she said she can. Patient's daughter said they will take her home. Going home does not appear to be a safe discharge plan, however patient is insistent on going home and her daughter is in agreement. Sena FONTANA NURSING SUPPORT WORKER
--- NOTE | 2020-04-16 13:37 | RAD_ITS ---
STUDY: X-RAY - LEFT HAND REASON FOR EXAM: Female, 74 years old. fell on left hand 2 days ago -- swelling and pain TECHNIQUE: 3 view(s) of the hand. COMPARISON: None. FINDINGS: Normal radiocarpal articulation. Normal distal radioulnar joint. Normal visualized carpal bones. Normal carpal articulations Normal carpometacarpal articulation of the thumb. Normal second through fifth carpometacarpal joints. Normal metacarpi. Normal metacarpophalangeal joint of the thumb. Normal interphalangeal joint of the thumb. Normal proximal and distal phalanges of the thumb. Normal metacarpophalangeal joints of the second through fifth fingers. Normal proximal and distal interphalangeal joints of the second through fifth fingers. Normal phalanges of the second through fifth fingers. The soft tissue structures are unremarkable. RAD/Hand Min 3 Views IMPRESSION: Normal x-ray examination of the hand. Electronically Signed: Selvin Witt MD at 19:21 EST , Service support ,
--- NOTE | 2020-04-16 13:50 | PN_ITS ---
Patient Problems: Active and Suspected Problems Elevated LFTs (Acute) Syncope (Suspected) Pseudohyponatremia (Acute) Acute kidney injury superimposed on CKD (Acute) Reason for Visit: Follow-up for acute kidney injury on CKD, uncontrolled diabetes and bilateral lower extremity lymphedema/venous ulcer Objective: Patient had T-max 100.1 Fahrenheit yesterday morning. Bilateral lower extremity edema with lymph oozing from both legs, right more than left heart rate is controlled Physical exam General: Alert, Oriented x3, Cooperative HEENT: Atraumatic, PERRLA, EOMI, Normocephalic Oral: No Gingival or Mucosal Lesions/ Ulcerations Neck: Supple, No JVD, Negative Carotid Bruits Lungs: Air entry diminished in bilateral lung bases. No crepitation/rhonchi Cardiovascular: Regular rate, Regular Rhythm, Normal S1, Normal S2, No murmurs Abdomen: Colostomy bag present. No red or black stool in the bag. Parastomal hernia present. Bowel Sounds Present, Soft, Non Tender, Non-Distended : No renal angle tenderness. No suprapubic tenderness. Extremities: Bilateral lower leg edema, Capillary Refill Less than 3 Seconds Skin: Small, multiple superficial ulcer in both legs, right more than left. lymph oozing from both legs, left more than right. Musculoskeletal: No Tenderness to Palpation of Joints or Extremities Neurological: Cranial nerves II-XII grossly intact, Deep Tendon Reflexes 2+/4 and Symmetrical, Neuro grossly intact Psych/Mental Status: Normal Affect, Appropriate. Vitals/I&O's: Vital Signs Temp Pulse Resp BP Pulse Ox 98.5 F 95 18 102/50 L 94 04/16/20 09:50 04/16/20 09:50 04/16/20 09:50 04/16/20 09:50 04/16/20 09:50 Oxygen Delivery Method Room Air Weight: 195 lb 1.745 oz Body Mass Index (BMI) 39.4 Finger Stick Blood Glucose 453 Intake and Output for Last 24 Hours 04/14/20 04/15/20 04/16/20 23:59 23:59 23:59 Intake Total 4128.33 / 4128.33 2296.67 / 2296.67 Output Total 1400 / 1400 975 / 975 Balance 2728.33 / 2728.33 1321.67 / 1321.67 Microbiology Past 72 Hours 04/14/20 13:16 Mucosa - Nose SARS-CoV-2 Antigen (Rapid) - Final Laboratory Results 04/15/20 14:36: POC Glucose 291 H 04/15/20 17:25: POC Glucose 270 H 04/15/20 21:58: POC Glucose 280 H 04/16/20 02:03: POC Glucose 234 H 04/16/20 06:16: POC Glucose 152 H 04/16/20 08:42: WBC 7.9, RBC 3.28 L, Hgb 8.1 L, Hct 27.2 L, MCV 82.9, MCH 24.7 L , MCHC 29.8 L, RDW Std Deviation 53.9 H, RDW Coeff of Zuri 17.8 H, Plt Count 125 L, MPV 10.9, Immature Gran % (Auto) 1.300 H, Neut % (Auto) 78.5 H, Lymph % (Auto) 9.0 L, [place] % (Auto) 9.4, Eos % (Auto) 1.5, Baso % (Auto) 0.3, Absolute Neuts (auto) 6.2, Absolute Lymphs (auto) 0.71 L, Nucleated RBC % 0, Plt Morphology Comment CLUMPED 04/16/20 08:42: Sodium 131 L, Potassium 3.8, Chloride 100, Carbon Dioxide 26.0, Anion Gap 5, BUN 27 H, Creatinine 1.21 H, Estim Creat Clear Calc 56.99, Est GFR (MDRD) Af Amer 56 L, Est GFR (MDRD) Non-Af 46 L, BUN/Creatinine Ratio 22.3 H, Glucose 141 H, Calcium 8.3 L, Phosphorus 2.3 L, Magnesium 1.4 L, Total Bilirubin 0.40, AST 18, ALT 50, Alkaline Phosphatase 229 H, Total Protein 5.9 L, Albumin 1.5 L, Globulin 4.4 H, Albumin/Globulin Ratio 0.3 L 04/16/20 11:38: POC Glucose 313 H Current Medications Apixaban (Apixaban 5 Mg Tablet) 5 mg PO BID [facility] Last Admin: 04/16/20 08:42 Dose: 5 mg Documented by: Brimonidine Tartrate (Brimonidine 0.2% 5ml Bottle) 1 drop EACH EYE BID [facility] Last Admin: 04/16/20 08:42 Dose: 1 drop Documented by: Dextrose (Dextrose 50%-Water 25 Gm/50 Ml Disp.Syrin) 0 gm IV X1 PRN; Protocol PRN Reason: Hypoglycemia Glucagon (Glucagon 1 Mg/Ml Syringe) 1 mg IM .X1 PRN PRN Reason: Hypoglycemia Hydrocortisone (Hydrocortisone 10 Mg Tablet) 10 mg PO DAILYCM [facility] Last Admin: 04/16/20 08:42 Dose: 10 mg Documented by: Hydrocortisone (Hydrocortisone 10 Mg Tablet) 5 mg PO DINNER [facility] Last Admin: 04/15/20 17:27 Dose: 5 mg Documented by: Sodium Chloride () 250 mls @ 15 mls/hr IV .[id number] PRN PRN Reason: Saline Flush Sodium Chloride () 250 mls @ 15 mls/hr IV .[id number] PRN PRN Reason: Additional IVPB Infusion Insulin Glargine (Insulin Glargine 100 Units/Ml Pen) 15 units SC BID [facility] Last Admin: 04/16/20 10:16 Dose: 15 u Documented by: Insulin Human Lispro (Insulin Lispro 100 Unit/Ml Insuln.Pen) 0 unit SC [facility]; Protocol Last Admin: 04/16/20 11:38 Dose: 6 u Documented by: L-Arginine/L-Glutamine/Calcium HMB (Brandan ([facility]flavored) Packet) [facility] Last Admin: 04/16/20 08:42 Dose: 1 packet Documented by: Nutritional Formula (Lactose Free) (Glucerna Shake 120 Ml Liquid) 120 ml PO TIDCM [facility] Last Admin: 04/16/20 11:39 Dose: 120 ml Documented by: Ondansetron HCl (Ondansetron 4 Mg/2 Ml Vial) 4 mg IV Q8H PRN PRN PRN Reason: NAUSEA/VOMITING Oxycodone HCl (Oxycodone 5 Mg Tablet) 10 mg PO TID [facility] Last Admin: 04/16/20 06:17 Dose: 10 mg Documented by: Oxycodone HCl (Oxycodone 5 Mg Tablet) 5 mg PO Q4H PRN PRN PRN Reason: Pain Score 1-10 Last Admin: 04/16/20 04:18 Dose: 5 mg Documented by: Sodium Chloride (0.9% Saline Lock 10 Ml Syringe) 10 - 40 ml IV UD PRN PRN Reason: SALINE FLUSH Medical Necessity - Tobacco Use Smoking Status: Never smoker Assessment/Plan All Active Problems Elevated LFTs (Acute) Pseudohyponatremia (Acute) Acute kidney injury superimposed on CKD (Acute) This is a 74 years old female patient presented to the emergency room because of what she described as passing out while on the toilet for several hours which happened twice, found to have uncontrolled blood sugar, sugar has been in the range of 500s, found to have acute kidney injury on top of stage III chronic kidney disease as well as elevated LFT and hyponatremia and she is being admitted for evaluation and treatment. #1 Altered mental status most probably encephalopathy: From history it seems most probably it is not syncope as it was not quick recovery and recovery was not total. On first instance it was about 7 hours and second 5 hours. Neuro exam is nonfocal. EKG revealed normal sinus rhythm without evidence of acute segment changes. She is on oxycodone TID, as well as oxycodone PRN, PRN Phenergan, PRN Benadryl and Flexeril QHS. But she stated that she did not take Phenergan, Benadryl and Flexeril as well as Ativan in the last couple of days. We will hold Phenergan, Benadryl, Ativan or other sedating for tranquilizer medication. Serum ammonia was less than 10. A1c 11.2. Strict input and output. MRI brain and EEG ordered. Will get neurology evaluation after imaging EEG is done. Patient had echo in December 2019 reported as Interpretation Summary Normal LV size. Mild concentric left ventricular hypertrophy. Left ventricular systolic function is normal. The estimated ejection fraction is 60 %. Stage 1 diastolic dysfunction. Mild tricuspid valve insufficiency. Pulmonary artery systolic pressure is 24 mmHg. 04/16: Acute encephalopathy resolved. Patient is on baseline mental status. MRI brain reported involutional changes but no acute abnormality. EEG no focal or epileptic activity present. Abnormal EEG with generalized slowing, nonspecific. [facility] neuro consult ordered. No history of prior seizure or epilepsy diagnosis. #2 acute kidney injury onstage III chronic kidney disease, diabetic nephropathy: Patient looks dehydrated. IV fluid, avoid nephrotoxic medications. Hold diuretics. Monitor kidney function. Baseline creatinine has been around 1.3 to 1.8 mg/dL. Admission creatinine is 2.33. Repeat creatinine is 1.9. 04/16: BUN/creatinine improved to 27/1.2, on baseline. IV fluid discontinued. #3 Hypertonic hyponatremia from hyperglycemia and dehydration: Blood glucose is 527. Calculated serum osmolarity 297 slightly above normal limit of 295. Corrected sodium for glucose is 133 mmol/L which is still lower than the normal. 04/16: Sodium improved to sodium 131. Patient is euvolemic. #4 hyperglycemia/uncontrolled type 2 diabetes mellitus: Without evidence of DKA. Blood sugar was 527, received insulin in the ED. A1c is 11.2 consistent with u ncontrolled hyperglycemia for a long time. Accu-Cheks before meals and at bedtime and cover with sliding scale insulin. Diabetic education 04/16: Glucose is between 150- 300. Started on a schedule Humalog 10 units subcutaneous 3 times daily with meals. Glargine insulin dose adjusted. #5 Elevated transaminases probably metabolic cause, nonalcoholic steatohepatitis : Unclear etiology, no abdominal pain, no right upper quadrant tenderness. She is status post cholecystectomy. ALT 125, AST 86, alkaline phosphatase 404. Ammonia less than 10. 04/16: Liver chemistry are normal. #6 history of DVT: Continue Eliquis. #7 chronic lymphedema/venous ulcers of the right lower extremity: With chronic erythema and chronic ulcers. consult wound care nurse. #8 history of ovarian cancer/melanoma: Status post surgery back in 2013 as well as chemotherapy, status post colostomy. #9 chronic pain syndrome: Continue oxycodone 10 mg 3 times daily along with OxyIR as needed every 4 hours. Patient has been following up with the palliative care team. She states that with this regimen, her pain is still was not controlled. Plan to continue same. #10 anxiety: Hold Ativan for now. #11: DVT prophylaxis: Continue Eliquis. Clinical Impression(s) from Imaging Studies Chest X-Ray 04/14/20 22:50 IMPRESSION: No acute cardiopulmonary disease. Chronic elevation of left hemidiaphragm. Arthritis with likely old Hill-Sachs fracture of the right humeral head. Brain CT 04/15/20 01:31 IMPRESSION: No acute intracranial abnormality. Chronic changes as above. ASPECT 10. Individualized dose optimization techniques were used for this CT. Brain MRI 04/15/20 13:54 IMPRESSION: Involutional changes of the brain, as described above. Microbiology Past 72 Hours 04/14/20 13:16 Mucosa - Nose SARS-CoV-2 Antigen (Rapid) - Final Laboratory Results 04/15/20 14:36: POC Glucose 291 H 04/15/20 17:25: POC Glucose 270 H 04/15/20 21:58: POC Glucose 280 H 04/16/20 02:03: POC Glucose 234 H 04/16/20 06:16: POC Glucose 152 H 04/16/20 08:42: WBC 7.9, RBC 3.28 L, Hgb 8.1 L, Hct 27.2 L, MCV 82.9, MCH 24.7 L , MCHC 29.8 L, RDW Std Deviation 53.9 H, RDW Coeff of Zuri 17.8 H, Plt Count 125 L, MPV 10.9, Immature Gran % (Auto) 1.300 H, Neut % (Auto) 78.5 H, Lymph % (Auto) 9.0 L, [place] % (Auto) 9.4, Eos % (Auto) 1.5, Baso % (Auto) 0.3, Absolute Neuts (auto) 6.2, Absolute Lymphs (auto) 0.71 L, Nucleated RBC % 0, Plt Morphology Comment CLUMPED 04/16/20 08:42: Sodium 131 L, Potassium 3.8, Chloride 100, Carbon Dioxide 26.0, Anion Gap 5, BUN 27 H, Creatinine 1.21 H, Estim Creat Clear Calc 56.99, Est GFR (MDRD) Af Amer 56 L, Est GFR (MDRD) Non-Af 46 L, BUN/Creatinine Ratio 22.3 H, Glucose 141 H, Calcium 8.3 L, Phosphorus 2.3 L, Magnesium 1.4 L, Total Bilirubin 0.40, AST 18, ALT 50, Alkaline Phosphatase 229 H, Total Protein 5.9 L, Albumin 1.5 L, Globulin 4.4 H, Albumin/Globulin Ratio 0.3 L 04/16/20 11:38: POC Glucose 313 H Inpatient E&M: [id number] Subs Hosp L2
[2020-04-16] MEDS: Insulin Lispro 100 UNIT/ML INSULN.PEN 10 UNIT SC (16:56)
[2020-04-16] MEDS: Hydrocortisone 10 MG Tablet 5 MG PO (16:57)
[2020-04-16 17:11] LABS: Bedside Glucose 321 mg/dL (70-110)
[2020-04-16 23:50] LABS: Bedside Glucose 319 mg/dL (70-110)
[2020-04-17] VITALS (12 sets, daily range): BP systolic 121–131; BP diastolic 58–64; PULSE 75–95; RESP 18; TEMP 36.5–37.2; O2SAT 93–97
[2020-04-17] MEDS: oxyCODONE 5 MG Tablet 10 MG PO ×3 (06:14→21:15)
[2020-04-17 06:42] LABS: Absolute Lymphocyte Count 0.56 X10^3/uL (0.83-4.51); Absolute Neutrophil Count 5.1 X10^3/uL (2.0-7.7); Basophil# 0.02 X10^3/uL; Basophil% 0.3 % (0-1); Eosinophil# 0.16 X10^3/uL; Eosinophils% 2.5 % (0-5); Hematocrit 25.5 % (37-47); Hemoglobin 7.3 g/dL (12.0-15.0); Lymphocyte # 0.56 X10^3/ul (4.0); Lymphocyte % 8.8 % (19-41); Mean Corp Hgb Conc 28.6 g/dL (32-36); Mean Corpuscular Hgb 24.5 pg (27.0-32.0); Mean Corpuscular Volume 85.6 fL (81-99); Mean Platelet Vol. 10.6 fl (6.2-12.0); Monocyte# 0.53 X10^3/uL; Monocyte% 8.3 % (0-10); NRBC Flagged by Analyzer 0 % (0-5); Neutrophil # 5.05 X10^3/uL (2.7-7.7); POSITIVE DIFFERENTIAL YES; Platelet Count 225 K/mm3 (150-450); RBC Distribution Width CV 17.7 % (11.6-14.6); RBC Distribution Width SD 55.6 fl (35.1-43.9); Red Blood Count 2.98 M/mm3 (4.2-5.4); White Blood Count 6.4 K/mm3 (4.4-11.0)
[2020-04-17 06:44] LABS: Differential Indicated SCAN CRITERIA MET
[2020-04-17 07:09] LABS: ALB/GLOB Ratio 0.4 RATIO (0.9-2.4); AST(SGOT) 11 U/L (15-37); Alanine Aminotransfer ALT/SGPT 35 U/L (13-56); Albumin, Serum 1.5 g/dL (3.2-5.0); Alkaline Phosphatase 197 U/L (45-117); Anion Gap 6 (5-15); BUN 36 mg/dL (7-18); BUN/Creat Ratio 32.1 RATIO (10-20); Chloride 100 mmol/L (98-107); Creatinine, Serum 1.12 mg/dL (0.55-1.02); EST Glomerular Filtration Rate 51 mL/min (>60); Est Glom Filt Rate - Afr Amer 61 mL/min (>60); Estimated Creatinine Clearance 61.57 ml/min; Globulin 3.5 g/dL (2.2-4.2); Glucose 202 mg/dL (74-106); Potassium 4.4 mmol/L (3.5-5.1); Sodium Level 134 mmol/L (136-145)
[2020-04-17 08:21] LABS: Bedside Glucose 154 mg/dL (70-110)
[2020-04-17] MEDS: oxyCODONE 5 MG Tablet PO ×2 (09:34→23:07)
[2020-04-17] MEDS: 0.9% Saline Lock 10 ML Syringe IV (09:36)
[2020-04-17] MEDS: Insulin Lispro 100 UNIT/ML INSULN.PEN 10 UNIT SC ×3 (09:38→17:22)
[2020-04-17] MEDS: Insulin Lispro 100 UNIT/ML INSULN.PEN SC ×4 (09:38→21:16)
[2020-04-17] MEDS: Hydrocortisone 10 MG Tablet PO (09:40)
[2020-04-17] MEDS: Juven (unflavored) Packet 1 PACKET PO ×2 (09:40→17:23)
[2020-04-17] MEDS: BRIMONIDINE 0.2% 5ML BOTTLE 1 DRP EACH EYE (09:42)
[2020-04-17] MEDS: APIXABAN 5 MG TABLET PO (09:42)
[2020-04-17] MEDS: Glucerna Shake 120 ML LIQUID PO ×2 (09:44→11:42)
[2020-04-17 10:11] LABS: Bedside Glucose 226 mg/dL (70-110)
[2020-04-17 12:51] LABS: Bedside Glucose 303 mg/dL (70-110)
--- NOTE | 2020-04-17 13:13 | PN_ITS ---
Patient Problems: Active and Suspected Problems Elevated LFTs (Acute) Syncope (Suspected) Pseudohyponatremia (Acute) Acute kidney injury superimposed on CKD (Acute) Reason for Visit: Follow-up for anemia, altered mental status, leg edema. Objective: Physical exam General: Alert, Oriented x3, Cooperative HEENT: Atraumatic, PERRLA, EOMI, Normocephalic. Pale conjunctiva Oral: No Gingival or Mucosal Lesions/ Ulcerations Neck: Supple, No JVD, Negative Carotid Bruits Lungs: Air entry diminished in bilateral lung bases. No crepitation/rhonchi Cardiovascular: Regular rate, Regular Rhythm, Normal S1, Normal S2, No murmurs Abdomen: Liquid stool in colostomy bag. No obvious blood no red or black stool in the bag. Parastomal hernia present. Bowel Sounds Present, Soft, Non Tender, Non-Distended : No renal angle tenderness. No suprapubic tenderness. Extremities: Bilateral lower leg edema, Capillary Refill Less than 3 Seconds Skin: Small, multiple superficial ulcer in both legs, right more than left. Bilateral leg bruising. Dressing done Musculoskeletal: No Tenderness to Palpation of Joints or Extremities Neurological: Cranial nerves II-XII grossly intact, Deep Tendon Reflexes 2+/4 and Symmetrical, Neuro grossly intact Psych/Mental Status: Normal Affect, Appropriate. Vitals/I&O's: Vital Signs Temp Pulse Resp BP Pulse Ox 98.3 F 84 18 121/64 H 93 04/17/20 09:58 04/17/20 10:00 04/17/20 09:58 04/17/20 09:58 04/17/20 09:58 Oxygen Delivery Method Room Air Weight: 195 lb 1.745 oz Body Mass Index (BMI) 39.4 Finger Stick Blood Glucose 453 Intake and Output for Last 24 Hours 04/15/20 04/16/20 04/17/20 23:59 23:59 23:59 Intake Total 4128.33 / 4128.33 2776.67 / 2926.67 1150 / 1150 Output Total 1400 / 1400 1275 / 1675 1250 / 1250 Balance 2728.33 / 2728.33 1501.67 / 1251.67 -100 / -100 Microbiology Past 72 Hours 04/14/20 13:16 Mucosa - Nose SARS-CoV-2 Antigen (Rapid) - Final Laboratory Results 04/16/20 16:54: POC Glucose 321 H 04/16/20 22:54: POC Glucose 319 H 04/17/20 05:15: WBC 6.4, RBC 2.98 L, Hgb 7.3 L, Hct 25.5 L, MCV 85.6, MCH 24.5 L , MCHC 28.6 L, RDW Std Deviation 55.6 H, RDW Coeff of Zuri 17.7 H, Plt Count 225, MPV 10.6, Immature Gran % (Auto) 1.100 H, Neut % (Auto) 79.0 H, Lymph % (Auto) 8.8 L, [place] % (Auto) 8.3, Eos % (Auto) 2.5, Baso % (Auto) 0.3, Absolute Neuts (auto) 5.1, Absolute Lymphs (auto) 0.56 L, Nucleated RBC % 0 04/17/20 05:15: Sodium 134 L, Potassium 4.4, Chloride 100, Carbon Dioxide 28.0, Anion Gap 6, BUN 36 H, Creatinine 1.12 H, Estim Creat Clear Calc 61.57, Est GFR (MDRD) Af Amer 61, Est GFR (MDRD) Non-Af 51 L, BUN/Creatinine Ratio 32.1 H, Glucose 202 H, Calcium 8.0 L, Total Bilirubin 0.30, AST 11 L, ALT 35, Alkaline P hosphatase 197 H, Total Protein 5.0 L, Albumin 1.5 L, Globulin 3.5, Albumin/Globulin Ratio 0.4 L 04/17/20 08:07: POC Glucose 154 H 04/17/20 09:32: POC Glucose 226 H 04/17/20 11:33: POC Glucose 303 H Current Medications Apixaban (Apixaban 5 Mg Tablet) 5 mg PO BID [facility] Last Admin: 04/17/20 09:42 Dose: 5 mg Documented by: Brimonidine Tartrate (Brimonidine 0.2% 5ml Bottle) 1 drop EACH EYE BID [facility] Last Admin: 04/17/20 09:42 Dose: 1 drop Documented by: Dextrose (Dextrose 50%-Water 25 Gm/50 Ml Disp.Syrin) 0 gm IV X1 PRN; Protocol PRN Reason: Hypoglycemia Glucagon (Glucagon 1 Mg/Ml Syringe) 1 mg IM .X1 PRN PRN Reason: Hypoglycemia Hydrocortisone (Hydrocortisone 10 Mg Tablet) 10 mg PO DAILYCM [facility] Last Admin: 04/17/20 09:40 Dose: 10 mg Documented by: Hydrocortisone (Hydrocortisone 10 Mg Tablet) 5 mg PO DINNER [facility] Last Admin: 04/16/20 16:57 Dose: 5 mg Documented by: Sodium Chloride () 250 mls @ 15 mls/hr IV .[id number] PRN PRN Reason: Saline Flush Sodium Chloride () 250 mls @ 15 mls/hr IV .[id number] PRN PRN Reason: Additional IVPB Infusion Insulin Glargine (Insulin Glargine 100 Units/Ml Pen) 20 units SC BREAKFAST [facility] Last Admin: 04/17/20 09:41 Dose: 20 u Documented by: Insulin Glargine (Insulin Glargine 100 Units/Ml Pen) 15 units SC QHS [facility] Last Admin: 04/16/20 22:59 Dose: 15 units Documented by: Insulin Human Lispro (Insulin Lispro 100 Unit/Ml Insuln.Pen) 0 unit SC ACHS [facility]; Protocol Last Admin: 04/17/20 11:40 Dose: 6 u Documented by: Insulin Human Lispro (Insulin Lispro 100 Unit/Ml Insuln.Pen) 10 unit SC TIDAC [facility] Last Admin: 04/17/20 11:41 Dose: 10 units Documented by: L-Arginine/L-Glutamine/Calcium HMB (Brandan (Unflavored) Packet) [facility] Last Admin: 04/17/20 09:40 Dose: 1 packet Documented by: Nutritional Formula (Lactose Free) (Glucerna Shake 120 Ml Liquid) [facility] [place] Last Admin: 04/17/20 11:42 Dose: 120 ml Documented by: Ondansetron HCl (Ondansetron 4 Mg/2 Ml Vial) 4 mg IV Q8H PRN PRN PRN Reason: NAUSEA/VOMITING Oxycodone HCl (Oxycodone 5 Mg Tablet) 10 mg PO TID [facility] Last Admin: 04/17/20 06:14 Dose: 10 mg Documented by: Oxycodone HCl (Oxycodone 5 Mg Tablet) 5 mg PO Q4H PRN PRN PRN Reason: Pain Score 1-10 Last Admin: 04/17/20 09:34 Dose: 5 mg Documented by: Sodium Chloride (0.9% Saline Lock 10 Ml Syringe) 10 - 40 ml IV UD PRN PRN Reason: SALINE FLUSH Last Admin: 04/17/20 09:36 Dose: 10 ml Documented by: STROKE Vital Signs/Narrative: Vital Signs Temp Pulse Resp BP Pulse Ox 04/17/20 10:00 84 04/17/20 09:58 98.3 F 84 18 121/64 H 93 04/17/20 09:30 98.6 F 84 18 121/64 H 93 Medical Necessity - Tobacco Use Smoking Status: Never smoker Assessment/Plan All Active Problems Elevated LFTs (Acute) Pseudohyponatremia (Acute) Acute kidney injury superimposed on CKD (Acute) This is a 74 years old female patient presented to the emergency room because of what she described as passing out while on the toilet for several hours which happened twice, found to have uncontrolled blood sugar, sugar has been in the range of 500s, found to have acute kidney injury on top of stage III chronic kidney disease as well as elevated LFT and hyponatremia and she is being admitted for evaluation and treatment. #1 Altered mental status most probably encephalopathy: From history it seems most probably it is not syncope as it was not quick recovery and recovery was not total. On first instance it was about 7 hours and second 5 hours. Neuro exam is nonfocal. EKG revealed normal sinus rhythm without evidence of acute segment changes. She is on oxycodone TID, as well as oxycodone PRN, PRN Phenergan, PRN Benadryl and Flexeril QHS. But she stated that she did not take Phenergan, Benadryl and Flexeril as well as Ativan in the last couple of days. We will hold Phenergan, Benadryl, Ativan or other sedating for tranquilizer medication. Serum ammonia was less than 10. A1c 11.2. Strict input and output. MRI brain and EEG ordered. Patient had echo in December 2019 reported as Interpretation Summary Normal LV size. Mild concentric left ventricular hypertrophy. Left ventricular systolic function is normal. The estimated ejection fraction is 60 %. Stage 1 diastolic dysfunction. Mild tricuspid valve insufficiency. Pulmonary artery systolic pressure is 24 mmHg. 04/16: Acute encephalopathy resolved. Patient is on baseline mental status. MRI brain reported involutional changes but no acute abnormality. EEG no focal or epileptic activity present. Abnormal EEG with generalized slowing, nonspecific. SOC neuro consult ordered. No history of prior seizure or epilepsy diagnosis. 04/17: SOC neurology consult was done yesterday. SOC neurologist recommended follow-up with outpatient neurologist in 2 to 4 weeks. 30-day event monitor. cafeteria monitor shows normal sinus rhythm with PVCs. Discussed with the mfts Dr. Moe OT and he agreed with the plan with 30-day event monitor. He does not think altered mental status/LOC was related to cardiology etiology. #2 acute kidney injury onstage III chronic kidney disease, diabetic nephropathy: Patient looks dehydrated. IV fluid, avoid nephrotoxic medications. Hold diuretics. Monitor kidney function. Baseline creatinine has been around 1.3 to 1.8 mg/dL. Admission creatinine is 2.33. Repeat creatinine is 1.9. 04/16: BUN/creatinine improved to 27/1.2, on baseline. IV fluid discontinued. 04/17: BUN/creatinine baseline 36/1.12. #3 Hypertonic hyponatremia from hyperglycemia and dehydration: Blood glucose is 527. Calculated serum osmolarity 297 slightly above normal limit of 295. Corrected sodium for glucose is 133 mmol/L which is still lower than the normal. 04/16: Sodium improved to sodium 131. Patient is euvolemic. 03/31: Sodium 134 #4 hyperglycemia/uncontrolled type 2 diabetes mellitus chronic adrenal insufficiency on hydrocortisone: Without evidence of DKA. Blood sugar was 527, received insulin in the ED. A1c is 11.2 consistent with uncontrolled hyperglycemia for a long time. Accu-Cheks before meals and at bedtime and cover with sliding scale insulin. Diabetic education 04/16: Glucose is between 150- 300. Started on a schedule Humalog 10 units subcutaneous 3 times daily with meals. Glargine insulin dose adjusted. #5 Elevated transaminases probably metabolic cause, nonalcoholic steatohepatitis : Unclear etiology, no abdominal pain, no right upper quadrant tenderness. She is status post cholecystectomy. ALT 125, AST 86, alkaline phosphatase 404. Ammonia less than 10. 04/16: Liver chemistry are normal. #6 history of DVT: Acute anemia on anemia of chronic disease: Patient hemoglobin dropped to 7.3 from 9.5 on admission. Patient also looks pale and he states her colostomy is less pinkish. Blood pressure and heart rate are normal. Repeat H&H every 8 hourly ordered. Eliquis ordered. Stool for occult blood ordered. IV Protonix every 12 hourly. Hydrocortisone 10 mg daily and hold evening dose. #7 chronic lymphedema/venous ulcers of the right lower extremity: With chronic erythema and chronic ulcers. consult wound care nurse. #8 history of ovarian cancer/melanoma: Status post surgery back in 2013 as well as chemotherapy, status post colostomy. Patient states he still has melanoma which is growing in the pelvis has not been operated yet. Patient is high risk of surgery of parastomal hernia. #9 chronic pain syndrome: Continue oxycodone 10 mg 3 times daily along with OxyIR as needed every 4 hours. Patient has been following up with the palliative care team. She states that with this regimen, her pain is still was not controlled. Plan to continue same. #10 anxiety: Hold Ativan for now. #11: DVT prophylaxis: Eliquis held. And has Smith wrap bandage and dressing secondary to bilateral lymphedema and venous ulcer Clinical Impression(s) from Imaging Studies Chest X-Ray 04/14/20 22:50 IMPRESSION: No acute cardiopulmonary disease. Chronic elevation of left hemidiaphragm. Arthritis with likely old Hill-Sachs fracture of the right humeral head. Brain CT 04/15/20 01:31 IMPRESSION: No acute intracranial abnormality. Chronic changes as above. ASPECT 10. Individualized dose optimization techniques were used for this CT. Brain MRI 04/15/20 13:54 IMPRESSION: Involutional changes of the brain, as described above. Microbiology Past 72 Hours 04/14/20 13:16 Mucosa - Nose SARS-CoV-2 Antigen (Rapid) - Final Laboratory Results 04/16/20 16:54: POC Glucose 321 H 04/16/20 22:54: POC Glucose 319 H 04/17/20 05:15: WBC 6.4, RBC 2.98 L, Hgb 7.3 L, Hct 25.5 L, MCV 85.6, MCH 24.5 L , MCHC 28.6 L, RDW Std Deviation 55.6 H, RDW Coeff of Zuri 17.7 H, Plt Count 225, MPV 10.6, Immature Gran % (Auto) 1.100 H, Neut % (Auto) 79.0 H, Lymph % (Auto) 8.8 L, [place] % (Auto) 8.3, Eos % (Auto) 2.5, Baso % (Auto) 0.3, Absolute Neuts (auto) 5.1, Absolute Lymphs (auto) 0.56 L, Nucleated RBC % 0 04/17/20 05:15: Sodium 134 L, Potassium 4.4, Chloride 100, Carbon Dioxide 28.0, Anion Gap 6, BUN 36 H, Creatinine 1.12 H, Estim Creat Clear Calc 61.57, Est GFR (MDRD) Af Amer 61, Est GFR (MDRD) Non-Af 51 L, BUN/Creatinine Ratio 32.1 H, Glucose 202 H, Calcium 8.0 L, Total Bilirubin 0.30, AST 11 L, ALT 35, Alkaline Phosphatase 197 H, Total Protein 5.0 L, Albumin 1.5 L, Globulin 3.5, Albumin/Globulin Ratio 0.4 L 04/17/20 08:07: POC Glucose 154 H 04/17/20 09:32: POC Glucose 226 H 04/17/20 11:33: POC Glucose 303 H Inpatient E&M: [id number] Subs Hosp L2
[2020-04-17 13:51] LABS: Hematocrit 26.8 % (37-47); Hemoglobin 7.8 g/dL (12.0-15.0)
[2020-04-17] MEDS: Sodium Ferric Gluconat 250 MG in 0.9% Normal Saline 250 ML 135 MG IV (15:24)
--- NOTE | 2020-04-17 15:29 | NURSING ---
Ostomy appliance changed. stoma remains pink. no bleeding noted. patient has a large peristomal hernia. this has kali present for quite some time. cleansed skin with warm water. pat dry. applied a new flat 2 piece Gloria appliance with stoma paste. pt tolerated well. denies further needs at this time.
[2020-04-17 17:31] LABS: Bedside Glucose 243 mg/dL (70-110)
[2020-04-17 22:41] LABS: Bedside Glucose 259 mg/dL (70-110)
[2020-04-18 03:00] VITALS: PULSE 90
[2020-04-18 03:10] VITALS: BP 127/61; PULSE 84; RESP 18; TEMP 36.9; O2SAT 98
[2020-04-18] MEDS: oxyCODONE 5 MG Tablet PO ×2 (03:15→09:02)
[2020-04-18] MEDS: HYDROmorphone 0.5 MG/0.5 ML SYRINGE IV (04:30)
[2020-04-18] MEDS: 0.9% Saline Lock 10 ML Syringe IV (04:30)
[2020-04-18 05:27] LABS: Absolute Lymphocyte Count 0.52 X10^3/uL (0.83-4.51); Basophil# 0.02 X10^3/uL; Basophil% 0.3 % (0-1); Eosinophil# 0.14 X10^3/uL; Eosinophils% 1.9 % (0-5); Hematocrit 27.7 % (37-47); Hemoglobin 7.9 g/dL (12.0-15.0); Lymphocyte # 0.52 X10^3/ul (4.0); Lymphocyte % 7.1 % (19-41); Mean Corp Hgb Conc 28.5 g/dL (32-36); Mean Corpuscular Hgb 24.5 pg (27.0-32.0); Mean Platelet Vol. 11.4 fl (6.2-12.0); Monocyte# 0.56 X10^3/uL; Monocyte% 7.7 % (0-10); NRBC Flagged by Analyzer 0 % (0-5); Neutrophil # 5.95 X10^3/uL (2.7-7.7); Neutrophil % 81.8 % (47-70); POSITIVE DIFFERENTIAL YES; Platelet Count 240 K/mm3 (150-450); RBC Distribution Width CV 17.9 % (11.6-14.6); RBC Distribution Width SD 56.4 fl (35.1-43.9); Red Blood Count 3.22 M/mm3 (4.2-5.4); White Blood Count 7.3 K/mm3 (4.4-11.0)
[2020-04-18 05:28] LABS: Differential Indicated SCAN CRITERIA MET
[2020-04-18 05:51] LABS: ALB/GLOB Ratio 0.3 RATIO (0.9-2.4); AST(SGOT) 7 U/L (15-37); Alanine Aminotransfer ALT/SGPT 28 U/L (13-56); Albumin, Serum 1.4 g/dL (3.2-5.0); Alkaline Phosphatase 170 U/L (45-117); Anion Gap 4 (5-15); BUN 42 mg/dL (7-18); BUN/Creat Ratio 37.8 RATIO (10-20); Calcium,Total 8.4 mg/dL (8.5-10.1); Chloride 100 mmol/L (98-107); Creatinine, Serum 1.11 mg/dL (0.55-1.02); EST Glomerular Filtration Rate 51 mL/min (>60); Est Glom Filt Rate - Afr Amer 62 mL/min (>60); Estimated Creatinine Clearance 62.12 ml/min; Globulin 4.6 g/dL (2.2-4.2); Glucose 236 mg/dL (74-106); Potassium 4.2 mmol/L (3.5-5.1); Sodium Level 131 mmol/L (136-145)
[2020-04-18] MEDS: oxyCODONE 5 MG Tablet 10 MG PO ×2 (06:46→13:20)
[2020-04-18 07:50] VITALS: PULSE 80
--- NOTE | 2020-04-18 08:11 | CASEMGMT ---
BRIT RAMON NOTE: Spoke w/Coco @ [facility] 04/17. She was made aware anticipate pt may d/c today 04/18. VM received from [facility] @ [facility] this AM. She states they will be able to do start HHC this Sat 04/20 for P.T. [facility] to be notified when pt is discharged. PH: [phone] Marecl RAMIREZ RN CM
--- NOTE | 2020-04-18 08:11 | PCM.DC ---
- Discharge Diagnoses Current Active Problems: Current Active and Chronic Problems Elevated LFTs (Acute) Pseudohyponatremia (Acute) Acute kidney injury superimposed on CKD (Acute) Stage III chronic kidney disease (Chronic) Lymphedema of both lower extremities (Chronic) Melanoma (Chronic) History of DVT (deep vein thrombosis) (Chronic) History of pulmonary embolism (Chronic) Type II diabetes mellitus (Chronic) Cancer of ovary (Chronic) Anemia (Chronic) You will use the following diet at home:: Calorie/Carbohydrate Controlled (specify 1200, 1400, etc) - CARB CONTROLLED DIET Your food should be the consistency of: Regular Discharge Activity: May Not Drive Weight Bearing Status: Weight bearing as tolerated Call your doctor if you observe: Fever of 101 or Higher, Coldness, Increased Pain, Change in Color, Inability to urinate, Inability to have a bowel movement, Using more than one pad per hour, Shortness of breath, Dizziness, Fainting spells, Swelling in the ankles, Chest pain, Prolonged hiccoughing, Increased palpitations (irregular heartbeat), Calf discomfort, Uncontrolled pain Additional Instructions: Follow-up in the wound center in 1 to 2 weeks Allergies/Adverse Reactions: Allergies clindamycin Allergy (Verified 04/14/20 22:20) Other iodine Allergy (Verified 04/14/20 22:20) rash/incoherent meperidine HCl [From Demerol] Allergy (Verified 04/14/20 22:20) Nausea/vomiting/diarrhea Penicillins Allergy (Verified 04/14/20 22:20) Itching/hives adhesive tape Adverse Reaction (Verified 04/14/20 22:20) blisters BLISTERS aspirin Adverse Reaction (Verified 04/14/20 22:20) nosebleeds diazepam [From Valium] Adverse Reaction (Verified 04/14/20 22:20) Nausea/Vom/Diarrhea egg Adverse Reaction (Verified 04/14/20 22:20) Diarrhea levofloxacin [From Levaquin] Adverse Reaction (Verified 04/14/20 22:20) Vomiting methadone Adverse Reaction (Verified 04/14/20 22:20) Upset Stomach morphine Adverse Reaction (Verified 04/14/20 22:20) Nausea/Vom/Diarrhea sulfamethoxazole [From Bactrim] Adverse Reaction (Verified 04/14/20 22:20) Nausea/Vom/Diarrhea trimethoprim [From Bactrim] Adverse Reaction (Verified 04/14/20 22:20) Nausea/Vom/Diarrhea Medications to take at Discharge Cyanocobalamin [Vitamin B12] 1,000 mcg PO DAILY@0800 05/29/15 cycloBENZAPRine HCl [Flexeril] 10 mg PO QHS 05/29/15 Apixaban [Eliquis] 5 mg PO BID 06/12/15 proMETHazine tablet [Phenergan tablet] 25 mg PO 4X/DAY PRN PRN #20 tablet 07/20/15 Albuterol IH (ProAir) [Proair Hfa] 2 puff INHALATION Q6H PRN PRN 05/27/16 Ondansetron HCl [Zofran] 8 mg PO TID PRN PRN 05/27/16 Cholecalciferol (VIT D3) [Vitamin D3] 2,000 unit PO DAILY 04/01/18 Ascorbic Acid [C-1000 with Kelley Hips] 500 mg PO DAILY 01/12/19 DiphenhydrAMINE [Benadryl] 25 mg PO BID PRN 01/12/19 Lorazepam [Ativan] 0.25 - 0.5 mg PO Q6H PRN PRN 01/12/19 Brimonidine Tartrate 0.2% [Brimonidine 0.2% 5Ml Bottle] 1 drp EACH EYE BID 04/22/19 Cetirizine HCl 10 mg PO DAILY PRN 04/22/19 Difluprednate [Durezol] 1 drp EACH EYE QODAY 04/22/19 Oxycodone [Oxyir] 5 mg PO Q4H PRN PRN 04/22/19 Hydrocortisone [Cortef] 10 mg PO BID 01/15/20 Acetaminophen [Tylenol Tablet] 650 mg PO Q6H PRN PRN tab 01/16/20 Oxycodone [Oxyfast] 10 mg PO TID 01/30/20 Insulin Glargine [Lantus SoloStar Pen] 20 units SC BID #100 units 04/18/20 Insulin Lispro [Humalog KwikPen] See Protocol SC ACHS insuln.pen 04/18/20 Insulin Lispro [Humalog] 15 unit SC TIDCM #1 ml 04/18/20 Pantoprazole Sodium [Protonix] 40 mg PO DAILY #30 tab 04/18/20 Torsemide [Demadex] 20 mg PO BID #0 04/18/20 metFORMIN HCl [Glucophage] 500 mg PO BIDCM #0 04/18/20 The following prescriptions were given: Insulin Lispro [Humalog] 15 unit SC TIDCM #1 ml Transmission Status: Pending to [facility] #30 Insulin Glargine [Lantus SoloStar Pen] 20 units SC BID #100 units Transmission Status: Pending to [facility] #30 Pantoprazole Sodium [Protonix] 40 mg PO DAILY #30 tab Primary Care Physician: Chente Daigle MD [Primary Care Provider] - Please follow up with your Primary Care Physician in: IN 1-2 WEEKS Test Results: Test results from this visit will be discussed in further detail at your follow-up appointment, if applicable. Please Follow Up With: Madhu Covington MD When: Uncontrolled diabetes mellitus type 2 Please Follow Up With: Vazquez Garza MD When: Bilateral lower extremity lymphedema
--- NOTE | 2020-04-18 08:12 | DS.PCM_ITS ---
Discharge Date and Diagnosis - Problem List Patient Problems: Active and Suspected Problems Elevated LFTs (Acute) Syncope (Suspected) Pseudohyponatremia (Acute) Acute kidney injury superimposed on CKD (Acute) Date of Admission: 04/15/20 Date of Discharge: 04/18/20 - Primary Discharge Diagnosis Acute Problems: Active Problems Elevated LFTs (Acute) Pseudohyponatremia (Acute) Acute kidney injury superimposed on CKD (Acute) Suspected Problems: Suspected Problems Syncope (Suspected) - Secondary Discharge Diagnosis Chronic Problems: Chronic Problems Stage III chronic kidney disease (Chronic) Venous ulcer of right lower extremity without varicose veins (Chronic) Multiple thyroid nodules (Chronic) Thyromegaly (Chronic) Lymphedema of both lower extremities (Chronic) Melanoma (Chronic) Asthma (Chronic) Reported, severity unknown History of DVT (deep vein thrombosis) (Chronic) History of pulmonary embolism (Chronic) Type II diabetes mellitus (Chronic) Cancer of ovary (Chronic) Anemia (Chronic) Venous insufficiency (Chronic) Poor dentition (Chronic) Hospital Course and Treatment Consultations 04/15/20 01:43 Consult: Onc/Wound/precise winder Routine Comment: Operations: None Summary of Care Provided: [] This is a 74 years old female patient presented to the emergency room because of what she described as passing out while on the toilet for several hours which happened twice, found to have uncontrolled blood sugar, sugar has been in the range of 500s, found to have acute kidney injury on top of stage III chronic kidney disease as well as elevated LFT and hyponatremia and she is being admitted for evaluation and treatment. #1 Altered mental status most probably encephalopathy: Neuro exam is nonfocal. Culture was not suggestive of cardiac syncope as syncope was prolonged and she had confusion during recovery.. EKG revealed normal sinus rhythm without evidence of acute segment changes. She is on oxycodone TID, as well as oxycodone PRN, PRN Phenergan, PRN Benadryl and Flexeril QHS. But she stated that she did not take Phenergan, Benadryl and Flexeril as well as Ativan in the last couple of days. Phenergan, Benadryl, Ativan or other sedating for tranquilizer medication. Serum ammonia was less than 10. A1c 11.2. Strict input and output. MRI brain and EEG was done. Patient had echo in December 2019 reported as Interpretation Summary Normal LV size. Mild concentric left ventricular hypertrophy. Left ventricular systolic function is normal. The estimated ejection fraction is 60 %. Stage 1 diastolic dysfunction. Mild tricuspid valve insufficiency. Pulmonary artery systolic pressure is 24 mmHg. For last 3 days, patient on baseline mental status. MRI brain reported involutional changes but no acute abnormality. EEG no focal or epileptic activity present. Abnormal EEG with generalized slowing, nonspecific.No history of prior seizure or epilepsy diagnosis. [facility] neurologist recommended follow-up with outpatient neurologist in 2 to 4 weeks. 30-day event monitor. electronic device monitor shows normal sinus rhythm with PVCs. Discussed with the field assessor Dr. Kumar and he agreed with the plan with 30-day event monitor. He does not think altered mental status/LOC was related to cardiology etiology. #2 acute kidney injury onstage III chronic kidney disease, diabetic nephropathy: Patient looks dehydrated. IV fluid, avoid nephrotoxic medications. Hold diuretics. Monitor kidney function. Baseline creatinine has been around 1.3 to 1.8 mg/dL. Admission creatinine is 2.33. Repeat serial BUN/creatinine shows resolution of acute kidney injury, last .11 #3 Hypertonic hyponatremia from hyperglycemia and dehydration: Blood glucose is 527. Calculated serum osmolarity 297 slightly above normal limit of 295. Corrected sodium for glucose is 133 mmol/L which is still lower than the normal. Sodium 131. #4 hyperglycemia/uncontrolled type 2 diabetes mellitus chronic adrenal insufficiency on hydrocortisone: Without evidence of DKA. Blood sugar was 527, received insulin in the ED. A1c is 11.2 consistent with uncontrolled hyperglycemia for a long time. Accu-Cheks before meals and at bedtime and cover with sliding scale insulin. Diabetic education. Patient was started on Lantus insulin and Humalog insulin. A prescription was given for both. Patient has daughter who is a nurse and she is comfortable taking insulin. #5 Elevated transaminases probably metabolic cause, nonalcoholic steatohepatitis : Unclear etiology, no abdominal pain, no right upper quadrant tenderness. She is status post cholecystectomy. ALT 125, AST 86, alkaline phosphatase 404. Ammonia less than 10. Repeat liver chemistry was normal #6 history of DVT: Acute anemia on anemia of chronic disease: Patient hemoglobin dropped to 7.3 from 9.5 on admission. Patient also looks pale and he states her colostomy is less pinkish. Blood pressure and heart rate are normal. Repeat H&H every 8 hourly ordered. Eliquis ordered. IV Protonix every 12 hourly. Hydrocortisone 10 mg daily and hold evening dose. Patient discharged on Protonix 40 mg daily. #7 chronic lymphedema/venous ulcers of the right lower extremity: With chronic erythema and chronic ulcers. Patient follows the wound clinic. #8 history of ovarian cancer/melanoma: Status post surgery back in 2013 as well as chemotherapy, status post colostomy. Patient states he still has melanoma which is growing in the pelvis has not been operated yet. Patient is high risk of surgery of parastomal hernia. #9 chronic pain syndrome: Continue oxycodone 10 mg 3 times daily along with OxyIR as needed every 4 hours. Patient has been following up with the palliative care team. She states that with this regimen, her pain is still was not controlled. Plan to continue same. #10 anxiety: Hold Ativan for now. #11: DVT prophylaxis: Eliquis was held. The patient has Smith wrap bandage and dressing secondary to bilateral lymphedema and venous ulcer. Patient Eliquis was resumed on discharge once H&H is stable. Patient Problems: Active and Suspected Problems Elevated LFTs (Acute) Syncope (Suspected) Pseudohyponatremia (Acute) Acute kidney injury superimposed on CKD (Acute) Objective: Heart rate and blood pressure are controlled. No hypoxia or tachypnea. Hemoglobin stable 7.8/7.9. No active bleeding in colostomy bag. Patient blood sugar is better controlled but is still elevated in the range of 250. A1c 11.2 g%. Educated about the insulin. Patient's daughter is a nurse. Physical exam General: Alert, Oriented x3, Cooperative HEENT: Atraumatic, PERRLA, EOMI, Normocephalic. Pale conjunctiva Oral: No Gingival or Mucosal Lesions/ Ulcerations Neck: Supple, No JVD, Negative Carotid Bruits Lungs: Air entry diminished in bilateral lung bases. No crepitation/rhonchi Cardiovascular: Regular rate, Regular Rhythm, Normal S1, Normal S2, No murmurs Abdomen: Liquid stool. No obvious bleeding in colostomy bag. Parastomal hernia present. Bowel Sounds Present, Soft, Non Tender, Non-Distended : No renal angle tenderness. No suprapubic tenderness. Extremities: Bilateral lower leg edema, Capillary Refill Less than 3 Seconds Skin: Small, multiple superficial ulcer in both legs, right more than left. Bilateral leg bruising. Dressing done Musculoskeletal: No Tenderness to Palpation of Joints or Extremities Neurological: Cranial nerves II-XII grossly intact, Deep Tendon Reflexes 2+/4 and Symmetrical, Neuro grossly intact Psych/Mental Status: Normal Affect, Appropriate. - Physical Exam Vitals/I&O's: Vital Signs Temp Pulse Resp BP Pulse Ox 98.4 F 80 18 127/61 H 98 04/18/20 03:10 04/18/20 07:50 04/18/20 03:10 04/18/20 03:10 04/18/20 03:10 Oxygen Delivery Method Room Air Weight: 195 lb 1.745 oz Body Mass Index (BMI) 39.4 Finger Stick Blood Glucose 453 Intake and Output for Last 24 Hours 04/16/20 04/17/20 04/18/20 23:59 23:59 23:59 Intake Total 2776.67 / 2926.67 2240 / 2480 480 / 480 Output Total 1275 / 1675 2050 / 2650 900 / 900 Balance 1501.67 / 1251.67 190 / -170 -420 / -420 Microbiology Past 72 Hours 04/14/20 13:16 Mucosa - Nose SARS-CoV-2 Antigen (Rapid) - Final Laboratory Results 04/17/20 08:07: POC Glucose 154 H 04/17/20 09:32: POC Glucose 226 H 04/17/20 11:33: POC Glucose 303 H 04/17/20 13:27: Hgb 7.8 L, Hct 26.8 L 04/17/20 17:21: POC Glucose 243 H 04/17/20 21:15: POC Glucose 259 H 04/18/20 04:52: WBC 7.3, RBC 3.22 L, Hgb 7.9 L, Hct 27.7 L, MCV 86.0, MCH 24.5 L , MCHC 28.5 L, RDW Std Deviation 56.4 H, RDW Coeff of Zuri 17.9 H, Plt Count 240, MPV 11.4, Immature Gran % (Auto) 1.200 H, Neut % (Auto) 81.8 H, Lymph % (Auto) 7.1 L, [place]man % (Auto) 7.7, Eos % (Auto) 1.9, Baso % (Auto) 0.3, Absolute Neuts (auto) 6.0, Absolute Lymphs (auto) 0.52 L, Nucleated RBC % 0 04/18/20 04:52: Sodium 131 L, Potassium 4.2, Chloride 100, Carbon Dioxide 27.0, Anion Gap 4 L, BUN 42 H, Creatinine 1.11 H, Estim Creat Clear Calc 62.12, Est GFR (MDRD) Af Amer 62, Est GFR (MDRD) Non-Af 51 L, BUN/Creatinine Ratio 37.8 H, Glucose 236 H, Calcium 8.4 L, Total Bilirubin 0.20, AST 7 L, ALT 28, Alkaline Phosphatase 170 H, Total Protein 6.0 L, Albumin 1.4 L, Globulin 4.6 H, Albumin/Globulin Ratio 0.3 L Current Medications Apixaban (Apixaban 5 Mg Tablet) 5 mg PO BID [facility] Last Admin: 04/17/20 09:42 Dose: 5 mg Documented by: Brimonidine Tartrate (Brimonidine 0.2% 5ml Bottle) 1 drop EACH EYE BID [facility] Last Admin: 04/17/20 21:16 Dose: Not Given Documented by: Dextrose (Dextrose 50%-Water 25 Gm/50 Ml Disp.Syrin) 0 gm IV X1 PRN; Protocol PRN Reason: Hypoglycemia Glucagon (Glucagon 1 Mg/Ml Syringe) 1 mg IM .X1 PRN PRN Reason: Hypoglycemia Hydrocortisone (Hydrocortisone 10 Mg Tablet) 10 mg PO DAILYCM [facility] Last Admin: 04/17/20 09:40 Dose: 10 mg Documented by: Hydrocortisone (Hydrocortisone 10 Mg Tablet) 5 mg PO DINNER [facility] Last Admin: 04/16/20 16:57 Dose: 5 mg Documented by: Sodium Chloride () 250 mls @ 15 mls/hr IV .[id number] PRN PRN Reason: Saline Flush Sodium Chloride () 250 mls @ 15 mls/hr IV .[id number] PRN PRN Reason: Additional IVPB Infusion Pantoprazole Sodium 40 mg/ (Sodium Chloride) 110 mls @ 330 mls/hr IV Q12 [facility] Last Infusion: 04/17/20 22:00 Dose: Infused Documented by: Insulin Glargine (Insulin Glargine 100 Units/Ml Pen) 20 units SC BREAKFAST [facility] Last Admin: 04/17/20 09:41 Dose: 20 u Documented by: Insulin Glargine (Insulin Glargine 100 Units/Ml Pen) 15 units SC QHS [facility] Last Admin: 04/17/20 21:17 Dose: 15 units Documented by: Insulin Human Lispro (Insulin Lispro 100 Unit/Ml Insuln.Pen) 0 unit SC ACHS [facility]; Protocol Last Admin: 04/17/20 21:16 Dose: 4 u Documented by: Insulin Human Lispro (Insulin Lispro 100 Unit/Ml Insuln.Pen) 10 unit SC TIDAC [facility] Last Admin: 04/17/20 17:22 Dose: 10 units Documented by: L-Arginine/L-Glutamine/Calcium HMB (Brandan (Unflavored) Packet) 1 packet PO BIDCM [facility] Last Admin: 04/17/20 17:23 Dose: 1 packet Documented by: Nutritional Formula (Lactose Free) (Glucerna Shake 120 Ml Liquid) [facility] Admin: 04/17/20 17:23 Dose: Not Given Documented by: Ondansetron HCl (Ondansetron 4 Mg/2 Ml Vial) 4 mg IV Q8H PRN PRN PRN Reason: NAUSEA/VOMITING Oxycodone HCl (Oxycodone 5 Mg Tablet) 10 mg PO TID [facility] Last Admin: 04/18/20 06:46 Dose: 10 mg Documented by: Oxycodone HCl (Oxycodone 5 Mg Tablet) 5 mg PO Q4H PRN PRN PRN Reason: Pain Score 1-10 Last Admin: 04/18/20 03:15 Dose: 5 mg Documented by: Sodium Chloride (0.9% Saline Lock 10 Ml Syringe) 10 - 40 ml IV UD PRN PRN Reason: SALINE FLUSH Last Admin: 04/18/20 04:30 Dose: 10 ml Documented by: Home Medications: Medications to take at Discharge Cyanocobalamin [Vitamin B12] 1,000 mcg PO DAILY@0800 05/29/15 cycloBENZAPRine HCl [Flexeril] 10 mg PO QHS 05/29/15 Apixaban [Eliquis] 5 mg PO BID 06/12/15 proMETHazine tablet [Phenergan tablet] 25 mg PO 4X/DAY PRN PRN #20 tablet 07/20/15 Albuterol IH (ProAir) [Proair Hfa] 2 puff INHALATION Q6H PRN PRN 05/27/16 Ondansetron HCl [Zofran] 8 mg PO TID PRN PRN 05/27/16 Cholecalciferol (VIT D3) [Vitamin D3] 2,000 unit PO DAILY 04/01/18 Ascorbic Acid [C-1000 with Kelley Hips] 500 mg PO DAILY 01/12/19 DiphenhydrAMINE [Benadryl] 25 mg PO BID PRN 01/12/19 Lorazepam [Ativan] 0.25 - 0.5 mg PO Q6H PRN PRN 01/12/19 Brimonidine Tartrate 0.2% [Brimonidine 0.2% 5Ml Bottle] 1 drp EACH EYE BID 04/22/19 Cetirizine HCl 10 mg PO DAILY PRN 04/22/19 Difluprednate [Durezol] 1 drp EACH EYE QODAY 04/22/19 Oxycodone [Oxyir] 5 mg PO Q4H PRN PRN 04/22/19 Hydrocortisone [Cortef] 10 mg PO BID 01/15/20 Acetaminophen [Tylenol Tablet] 650 mg PO Q6H PRN PRN tab 01/16/20 Oxycodone [Oxyfast] 10 mg PO TID 01/30/20 Insulin Glargine [Lantus SoloStar Pen] 20 units SC BID #100 units 04/18/20 Insulin Lispro [Humalog KwikPen] See Protocol SC ACHS insuln.pen 04/18/20 Insulin Lispro [Humalog] 15 unit SC TIDCM #1 ml 04/18/20 Pantoprazole Sodium [Protonix] 40 mg PO DAILY #30 tab 04/18/20 Torsemide [Demadex] 20 mg PO BID #0 04/18/20 metFORMIN HCl [Glucophage] 500 mg PO BIDCM #0 04/18/20 Following Prescriptions Were Given to Patient: Insulin Lispro [Humalog] 15 unit SC TIDCM #1 ml Transmission Status: Received by [facility] #30 Insulin Glargine [Lantus SoloStar Pen] 20 units SC BID #100 units Transmission Status: Received by [facility] #30 Pantoprazole Sodium [Protonix] 40 mg PO DAILY #30 tab Primary Care Physician: Chente Daigle MD [Primary Care Provider] - Medical Necessity - Tobacco Use Smoking Status: Never smoker Meaningful Use Info Meaningful Use Diagnoses (Choose all that apply): None applicable Inpatient E&M: 25484 Disch Hosp
[2020-04-18] MEDS: Insulin Lispro 100 UNIT/ML INSULN.PEN 10 UNIT SC ×2 (08:43→11:23)
[2020-04-18] MEDS: Insulin Lispro 100 UNIT/ML INSULN.PEN SC ×2 (08:43→11:23)
[2020-04-18 09:00] VITALS: BP 135/94; PULSE 94; RESP 16; TEMP 36.8; O2SAT 94
[2020-04-18] MEDS: Hydrocortisone 10 MG Tablet PO (09:07)
[2020-04-18] MEDS: Juven (unflavored) Packet 1 PACKET PO (09:07)
[2020-04-18 09:21] LABS: Bedside Glucose 187 mg/dL (70-110)
[2020-04-18] MEDS: BRIMONIDINE 0.2% 5ML BOTTLE 1 DRP EACH EYE (09:53)
--- NOTE | 2020-04-18 10:15 | PHA.DC.MR ---
Pharmacy Service has performed discharge medication reconciliation for this patient. No new medications upon discharge home. Medications reviewed at time of medlist review are previously reported home medications. Home Medications Cyanocobalamin [Vitamin B12] 1,000 mcg PO DAILY@0800 05/29/15 cycloBENZAPRine HCl [Flexeril] 10 mg PO QHS 05/29/15 metFORMIN HCl [Glucophage] 1,000 mg PO BIDCM 05/29/15 Apixaban [Eliquis] 5 mg PO BID 06/12/15 proMETHazine tablet [Phenergan tablet] 25 mg PO 4X/DAY PRN PRN #20 tablet 07/20/15 Albuterol IH (ProAir) [Proair Hfa] 2 puff INHALATION Q6H PRN PRN 05/27/16 Ondansetron HCl [Zofran] 8 mg PO TID PRN PRN 05/27/16 Cholecalciferol (VIT D3) [Vitamin D3] 2,000 unit PO DAILY 04/01/18 Ascorbic Acid [C-1000 with Kelley Hips] 500 mg PO DAILY 01/12/19 DiphenhydrAMINE [Benadryl] 25 mg PO BID PRN 01/12/19 Lorazepam [Ativan] 0.25 - 0.5 mg PO Q6H PRN PRN 01/12/19 Brimonidine Tartrate 0.2% [Brimonidine 0.2% 5Ml Bottle] 1 drp EACH EYE BID 04/22/19 Cetirizine HCl 10 mg PO DAILY PRN 04/22/19 Difluprednate [Durezol] 1 drp EACH EYE QODAY 04/22/19 Oxycodone [Oxyir] 5 mg PO Q4H PRN PRN 04/22/19 Hydrocortisone [Cortef] 10 mg PO BID 01/15/20 Acetaminophen [Tylenol Tablet] 650 mg PO Q6H PRN PRN tab 01/16/20 Oxycodone [Oxyfast] 10 mg PO TID 01/30/20 Torsemide [Demadex] 80 mg PO BID 01/30/20 The patient's discharge medication list was reviewed for discrepancies and discrepancies were resolved.
[2020-04-18 11:11] VITALS: PULSE 83
[2020-04-18 11:31] LABS: Bedside Glucose 251 mg/dL (70-110)
--- NOTE | 2020-04-18 11:55 | CHAPLAIN ---
Type of Pastoral Visit ___ Initial Visit _x__ Follow-up Visit ___ On-call Visit ___ General Patient Visit ___ Spiritual Assessment ___ Family Conference ___ Bereavement ___ Rapid Response ___ Code Blue ___ Other (describe below) Pastoral Care Referral From _x__ Patient ___ Family ___ Nurse ___ Physician ___ Litigation Support Analyst ___ Head Of Conservation ___ Other (describe below) Sacrament/Intervention _x__ Active listening ___ Anointing ___ Muslim ___ Bereavement ___ Communion ___ Radha exploration ___ ___ Life review ___ Prayer ___ Reconciliation ___ Sacrament of Sick _x__ Supportive presence ___ Wedding ___ Other (describe below) Pastoral Comments
--- NOTE | 2020-04-18 13:37 | CASEMGMT ---
BRIT RAMON to pt's bedside to confirm discharge plan. Pt continues to plan to return home with assistance from her children. Pt aware that she will be discharged on insulin. This will be new to pt. Pt states her daughter is a nurse and will be able to assist her with learning how to administer, etc. Pt denied any need for home usp services. Discussed home Pt and plan for [facility] to start home therapy services this Wednesday. Pt states she does not feel she will need this as her son is arranging for a friend of theirs to provide home therapy. Pt made aware this RN CM needed to contact her children to confirm the plan prior to cancelling the home PT. This RN CM contacted pt's daughter/HPOA Eliz Boo. Eliz confirms that they will handle the insulin and that home usp services are not needed. Eliz was unaware of home PT arrangements by her brother but provided this RN CM permission to contact him. Message left on son (Luis) voicemail requesting a return call. Eliz then called back and stated she spoke with her brother and the arrangements with the friend have not been started yet. Eliz requests that [facility] Home PT services be continued as planned. Eliz states her brother will notify the patient. Seymour Solorzano RN CM
--- NOTE | 2020-04-18 13:59 | CASEMGMT ---
Coco at [facility] notified of pt's discharge today. Order, discharge instructions and summary faxed to [facility] with start of care for Home PT on Thursday 04/20. Seymour Sloorzano RN CM
--- NOTE | 2020-04-18 14:06 | CASEMGMT ---
Social Work Pt ready for discharge on this date. VM left with [facility] notifying of discharge with home health PT through [facility]. Discharge instructions faxed. GIDEON Barry
[2020-04-18 14:19] VITALS: BP 135/74; PULSE 91; RESP 16; TEMP 37; O2SAT 96
--- NOTE | 2020-04-18 15:20 | CASEMGMT ---
BRIT RAMON note: Call received from Melani @ [facility]. She requests a recent H/P or [id number] documentation be faxed to them. D/C summary re-faxed to them at this time along with progress note from 04/17, and initial H/P. Melani states they can do start of care tomorrow. Marcel RAMIREZ RN, CM
--- NOTE | 2020-04-22 15:19 | CASEMGMT ---
Addendum entered by Shelbi Crawford 04/22/20 15:41: Pt states has been doing 'ok' since discharge. Pt states there were some concerns with her discharge and getting scripts sent as well as the insulin. This RN CM to f/u with Lindsay/Henok, PCU director/clinical sheep farm manager regarding same. Pt states has f/u with Dr. Daigle tomorrow and plans to keep. Pt states she is having trouble dosing her insulin d/t her eyesight and family has been assisting. Pt encouraged to f/u with [employer] at this time. Pt states suggests better discharge process for [facility] at this time and management notified. Pt states [facility] came out on wednesday already. Pt voices no further questions/concerns/needs at this time. Ryan PEREA CM Original Note: BRIT RAMON Discharge F/U Phone Call LACE: 14 Strata: 4 Discharge date: 04/18/20 Call date: 04/22/20 Call time: 1520 Attempted to reach pt without success at this time, message left for pt to call this RN YENNY back if/when. Ryan PEREA CM Admission dx: GREGORY on CKD, syncope, hyperglycemia
== END 2020-04-18 16:23 | disposition home or self-care (01) | DRG 71 ==
LOC: ED 23:53 → PCU 04-15 01:35
PROVIDERS: Admitting Provider Hospitalist; Emergency Provider Emergency Medicine; PCP Family Medicine; Visit Provider Internal Medicine
DX: G93.40 Encephalopathy, unspecified (principal); N17.9 Acute kidney failure, unspecified; E27.40 Unspecified adrenocortical insufficiency; L97.919 Non-pressure chronic ulcer of unspecified part of right lower leg with unspecified severity; L97.929 Non-pressure chronic ulcer of unspecified part of left lower leg with unspecified severity; E11.65 Type 2 diabetes mellitus with hyperglycemia; E11.622 Type 2 diabetes mellitus with other skin ulcer; N18.30 Chronic kidney disease, stage 3 unspecified; E01.0 Iodine-deficiency related diffuse (endemic) goiter; J45.909 Unspecified asthma, uncomplicated; D63.1 Anemia in chronic kidney disease; I87.2 Venous insufficiency (chronic) (peripheral); I51.7 Cardiomegaly; I89.0 Lymphedema, not elsewhere classified; K75.81 Nonalcoholic steatohepatitis (NASH); G89.4 Chronic pain syndrome; F41.9 Anxiety disorder, unspecified; I49.3 Ventricular premature depolarization; E11.22 Type 2 diabetes mellitus with diabetic chronic kidney disease; E11.21 Type 2 diabetes mellitus with diabetic nephropathy; E86.0 Dehydration; M79.642 Pain in left hand; M79.89 Other specified soft tissue disorders; Z93.3 Colostomy status; Z90.49 Acquired absence of other specified parts of digestive tract; Z85.43 Personal history of malignant neoplasm of ovary; Z85.820 Personal history of malignant melanoma of skin; Z86.718 Personal history of other venous thrombosis and embolism; Z86.711 Personal history of pulmonary embolism; Z79.4 Long term (current) use of insulin; Z79.01 Long term (current) use of anticoagulants; Z79.899 Other long term (current) drug therapy
CPT/HCPCS: 36415; 70450; 70551; 71045; 73130; 80053; 81001; 82009; 82140; 82962; 83036; 83690; 83735; 84100; 84484; 85014; 85018; 85025; 85610; 87426; 93005; 95819; 97110; 97162; 97166; 97802; 99251; 99285; J7030; J7040; J7050; A4216; G0463; J2916

== ENCOUNTER 2020-05-16 17:27 | Observation (INO) | payer MEDICARE, SELFPAY ==
[2020-04-15 01:33] VITALS: BMI 39.4
[2020-05-16 17:30] VITALS: BP 150/121; PULSE 102; RESP 14; TEMP 36.7; O2SAT 95; BMI 40.4
[2020-05-16 18:44] LABS: Absolute Lymphocyte Count 0.54 X10^3/uL (0.83-4.51); Basophil# 0.02 X10^3/uL; Basophil% 0.2 % (0-1); Eosinophil# 0.14 X10^3/uL; Eosinophils% 1.3 % (0-5); Hematocrit 30.3 % (37-47); Hemoglobin 8.9 g/dL (12.0-15.0); Lymphocyte # 0.54 X10^3/ul (4.0); Lymphocyte % 5.2 % (19-41); Mean Corp Hgb Conc 29.4 g/dL (32-36); Mean Corpuscular Hgb 24.9 pg (27.0-32.0); Mean Corpuscular Volume 84.6 fL (81-99); Mean Platelet Vol. 10.9 fl (6.2-12.0); Monocyte% 6.7 % (0-10); NRBC Flagged by Analyzer 0 % (0-5); Neutrophil # 8.95 X10^3/uL (2.7-7.7); Neutrophil % 85.8 % (47-70); POSITIVE COUNT YES; POSITIVE DIFFERENTIAL YES; RBC Distribution Width CV 16.4 % (11.6-14.6); RBC Distribution Width SD 50.7 fl (35.1-43.9); Red Blood Count 3.58 M/mm3 (4.2-5.4); White Blood Count 10.4 K/mm3 (4.4-11.0)
[2020-05-16 18:51] LABS: Differential Indicated SCAN CRITERIA MET
[2020-05-16 18:56] LABS: Anion Gap 7 (5-15); BUN 62 mg/dL (7-18); BUN/Creat Ratio 30.5 RATIO (10-20); Calcium,Total 9.6 mg/dL (8.5-10.1); Chloride 101 mmol/L (98-107); Creatinine, Serum 2.03 mg/dL (0.55-1.02); EST Glomerular Filtration Rate 25 mL/min (>60); Est Glom Filt Rate - Afr Amer 31 mL/min (>60); Estimated Creatinine Clearance 34.89 ml/min; Glucose 190 mg/dL (74-106); Potassium 4.6 mmol/L (3.5-5.1); Sodium Level 133 mmol/L (136-145)
[2020-05-16 19:51] VITALS: BP 90/40; PULSE 92; RESP 12; TEMP 36.5; O2SAT 93
--- NOTE | 2020-05-16 19:52 | US_ITS ---
STUDY: VENOUS DOPPLER ULTRASOUND - BILATERAL LOWER EXTREMITIES REASON FOR EXAM: Female, 74 years old. SEVERE EDEMA BILAT- OFF AND ON BILATERAL TECHNIQUE: Ultrasound evaluation of the deep vein system to include brizuela-scale imaging and compression was performed. Brizuela-scale imaging and Doppler sonographic evaluation, including duplex spectral analysis and qualitative color flow sonography, was performed. COMPARISON: None. FINDINGS: RIGHT LEG Common Femoral Vein: Normal compression, spontaneity and augmentation. Normal color Doppler. Common Femoral Vein/Greater Saphenous Junction: Normal compression, spontaneity and augmentation. Normal color Doppler. Deep Femoral Vein: Normal compression, spontaneity and augmentation. Normal color Doppler. Femoral Proximal: Normal compression, spontaneity and augmentation. Normal color Doppler. Femoral Middle: Normal compression, spontaneity and augmentation. Normal color Doppler. Femoral Distal: Normal compression, spontaneity and augmentation. Normal color Doppler. Popliteal Vein: Normal compression, spontaneity and augmentation. Normal color Doppler. Posterior Tibial Vein: Normal compression, spontaneity and augmentation. Normal color Doppler. Peroneal Vein: Normal compression, spontaneity and augmentation. Normal color Doppler. A debris-filled 2.9 cm right posterior knee Pineda''s cyst is present. LEFT LEG Common Femoral Vein: Normal compression, spontaneity and augmentation. Normal color Doppler. Common Femoral Vein/Greater Saphenous Junction: Normal compression, spontaneity and augmentation. Normal color Doppler. Deep Femoral Vein: Normal compression, spontaneity and augmentation. Normal color Doppler. Femoral Proximal: Normal compression, spontaneity and augmentation. Normal color Doppler. Femoral Middle: Normal compression, spontaneity and augmentation. Normal color Doppler. Femoral Distal: Normal compression, spontaneity and augmentation. Normal color Doppler. Popliteal Vein: Normal compression, spontaneity and augmentation. Normal color Doppler. Posterior Tibial Vein: Normal compression, spontaneity and augmentation. Normal color Doppler. Peroneal Vein: Not visualized. US/Venous Duplex Imag/Franc Extrem IMPRESSION: 1. No demonstrated deep venous thrombosis of the bilateral lower extremities. 2. A debris-filled 2.9 cm right posterior knee Pineda''s cyst is present. Electronically Signed: Ronn Feliz MD at 21:18 EST , Service support ,
[2020-05-16 19:57] LABS: Anisocytosis RARE; Platelet Estimate ADEQUATE (ADEQ); Red Cell Morphology NORM C+C NORMAL (NORM C&C)
--- NOTE | 2020-05-16 20:45 | PCM.HP.STD ---
Problem List (1) Acute kidney injury superimposed on CKD Status: Acute (2) Lymphedema of both lower extremities Status: Chronic (3) Asthma Status: Chronic Qualifiers: Asthma severity: unspecified severity Asthma persistence: unspecified Asthma complication type: unspecified Qualified Code(s): J45.909 - Unspecified asthma, uncomplicated Comment: Reported, severity unknown (4) Cancer of ovary Status: Chronic Qualifiers: Laterality: unspecified laterality (5) History of DVT (deep vein thrombosis) Status: Chronic (6) History of pulmonary embolism Status: Chronic (7) Multiple thyroid nodules Status: Chronic (8) Stage III chronic kidney disease Status: Chronic Qualifiers: Chronic kidney disease stage 3 subtype: unspecified whether 3a or 3b Qualified Code(s): N18.30 - Chronic kidney disease, stage 3 unspecified (9) Type II diabetes mellitus Status: Chronic Qualifiers: Diabetes mellitus residential insulin use: with residential use Diabetes mellitus complication status: with other specified complication Qualified Code(s): E11.69 - Type 2 diabetes mellitus with other specified complication; Z79.4 - assisted (current) use of insulin History of Present Illness Date of Admission: 05/16/20 Chief Complaint: BL LE increased pain, edema/pain The patient is a 74 y/o F w/ PMHx: ? Adrenal insufficiency, Chronic pain syndrome, Chronic anemia, Chronic BL LE lymphedema, CKD stage III, Hx Thyroid nodules, Chronic asthma, Hx DVT and PE, Diabetes mellitus type II, PVD, Hx Ovarian CA and melanoma who presents to the [facility] ED on 05/16/20 with history of specifically worsening BL LE pain, more severe with activity and even when at rest, ranging 10/10-5/10 in severity, sharp and dull aching variation, notes more edematous and difficulty walking. She notes she called the [facility] for an appointment but has not heard back. She notes that the redness to BL LE is similar to her chronic skin changes with her stasis disease. Work-up in the ED included T 98.1, heart rate 102, BP initially 150/121 with repeat 90/40, respiratory rate 14, 95% on room air, CBC with WC 10.4, hemoglobin 8.9, platelets noted to be adequate however clumping present therefore not given exact number with left shift and lymphopenia, BMP with sodium 133, BUN/creatinine 62/2.03 with BUN increased from most recent 04/18/20 BUN 42 and creatinine 04/18/2020 Cr 1.11 similar elevation 04/14/2020 with GREGORY on chronic kidney disease admission at that time, blood culture x2 pending per ED, duplex ultrasound unremarkable. Past Medical History Past Medical History (Chronic Problems): Chronic Problems Stage III chronic kidney disease (Chronic) Venous ulcer of right lower extremity without varicose veins (Chronic) Multiple thyroid nodules (Chronic) Thyromegaly (Chronic) Lymphedema of both lower extremities (Chronic) Melanoma (Chronic) Asthma (Chronic) Reported, severity unknown History of DVT (deep vein thrombosis) (Chronic) History of pulmonary embolism (Chronic) Type II diabetes mellitus (Chronic) Cancer of ovary (Chronic) Anemia (Chronic) Venous insufficiency (Chronic) Poor dentition (Chronic) Allergies clindamycin Allergy (Verified 05/16/20 17:29) Other iodine Allergy (Verified 05/16/20 17:29) rash/incoherent meperidine HCl [From Demerol] Allergy (Verified 05/16/20 17:29) Nausea/vomiting/diarrhea Penicillins Allergy (Verified 05/16/20 17:29) Itching/hives adhesive tape Adverse Reaction (Verified 05/16/20 17:29) blisters BLISTERS aspirin Adverse Reaction (Verified 05/16/20 17:29) nosebleeds diazepam [From Valium] Adverse Reaction (Verified 05/16/20 17:29) Nausea/Vom/Diarrhea egg Adverse Reaction (Verified 05/16/20 17:29) Diarrhea levofloxacin [From Levaquin] Adverse Reaction (Verified 05/16/20 17:29) Vomiting methadone Adverse Reaction (Verified 05/16/20 17:29) Upset Stomach morphine Adverse Reaction (Verified 05/16/20 17:29) Nausea/Vom/Diarrhea sulfamethoxazole [From Bactrim] Adverse Reaction (Verified 05/16/20 17:29) Nausea/Vom/Diarrhea trimethoprim [From Bactrim] Adverse Reaction (Verified 05/16/20 17:29) Nausea/Vom/Diarrhea Home Medications: Ambulatory Orders Medication Instructions Recorded Cyanocobalamin [Vitamin B12] 1,000 mcg PO DAILY@0800 05/29/15 cycloBENZAPRine HCl [Flexeril] 10 mg PO QHS 05/29/15 Apixaban [Eliquis] 5 mg PO BID 06/12/15 proMETHazine tablet [Phenergan 25 mg PO 4X/DAY PRN PRN #20 tablet 07/20/15 tablet] Albuterol IH (ProAir) [Proair Hfa] 2 puff INHALATION Q6H PRN PRN 05/27/16 Ondansetron HCl [Zofran] 8 mg PO TID PRN PRN 05/27/16 Cholecalciferol (VIT D3) [Vitamin 2,000 unit PO DAILY 04/01/18 D3] Ascorbic Acid [C-1000 with Kelley 500 mg PO DAILY 01/12/19 Hips] DiphenhydrAMINE [Benadryl] 25 mg PO BID PRN 01/12/19 Lorazepam [Ativan] 0.25 - 0.5 mg PO Q6H PRN PRN 01/12/19 Brimonidine Tartrate 0.2% 1 drp EACH EYE BID 04/22/19 [Brimonidine 0.2% 5Ml Bottle] Cetirizine HCl 10 mg PO DAILY PRN 04/22/19 Difluprednate [Durezol] 1 drp EACH EYE QODAY 04/22/19 Oxycodone [Oxyir] 5 mg PO Q4H PRN PRN 04/22/19 Hydrocortisone [Cortef] 10 mg PO BID 01/15/20 Acetaminophen [Tylenol Tablet] 650 mg PO Q6H PRN PRN tab 01/16/20 Oxycodone [Oxyfast] 10 mg PO TID 01/30/20 Insulin Glargine [Lantus SoloStar 20 units SC BID #100 units 04/18/20 Pen] Insulin Lispro [Humalog KwikPen] See Protocol SC ACHS insuln.pen 04/18/20 Insulin Lispro [Humalog] 15 unit SC TIDCM #1 ml 04/18/20 Pantoprazole Sodium [Protonix] 40 mg PO DAILY #30 tab 04/18/20 Torsemide [Demadex] 20 mg PO BID #0 04/18/20 metFORMIN HCl [Glucophage] 500 mg PO BIDCM #0 04/18/20 Surgical History: cholecystectomy, hysterectomy - For uterine fibroids, total hip arthroplasty - Right, total knee arthroplasty - Left, - - Surgery for bilateral carpal tunnel syndrome. Resection of ovarian cancer at [facility] in 2016, debridement of the abdominal wall with wound closure by Dr. 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 Paternal History Items: - - Denies known paternal medical history including heart disease, diabetes, cancer. Review of Systems Constitutional: Reports: Weakness, Fatigue. Denies: Anorexia, Chills, Fever, Malaise, Weight Change HEENT: Denies: Head Aches, Sinus Congestion, Sinus Drainage Cardiovascular: Denies: Chest Pain, Palpitations Respiratory: Reports: Shortness of breath upon exertion. Denies: Cough, Shortness of Breath, Shortness of breath at rest, Sputum production Gastrointestinal: Denies: Abdominal Pain, Nausea, Vomiting Genitourinary: Denies: Dysuria Musculoskeletal: Reports: Back Pain, Joint Pain, Muscle pain. Denies: Joint Tenderness Skin: Reports: Skin Changes. Denies: Rash, Wounds Neurological: Denies: Numbness, Tingling, Focal weakness Psychiatric: Reports: Anxiety. Denies: Depression, Homicidal Ideations, Suicidal Ideations Hematologic/ Lymphatic: Reports: Anemia, Easy Bruising, Easy Bleeding, Hx of blood clot VTE Information - Inpt Only VTE Present on Admission: No VTE Mechan Device Prophylaxis: SCD's VTE Pharm Prophylaxis ordered?: Yes Subjective: Patient seated upright in ED bed, no acute distress, notes lower extremities are uncomfortable, worse with usage. Objective: Physical Examination: General: awake, alert, oriented x 3 and cooperative, seated upright in the ED bed, no obvious acute distress. Skin: normal color, turgor, no icterus, cyanosis except significant bilateral lower extremity stasis disease with chronic erythema, confirmed unchanged per discussion with patient, stasis blisters present, chronic venous ulcers noted, 3+ pitting pedal to proximal almeida. HEENT: AT/NC, EOMI, PERRLA, MMM, unable to discern JVD secondary to thickened neck, no obvious carotid bruits. Lungs: Diminished breath sounds, greater bases, distant, moderate effort, no evidence of distress, no rales, ronchi or wheezing. Heart: Mildly tachycardic with regular rhythm; no gallop, rub audible. Abdomen: soft, morbidly obese, no specific tenderness palpation, left-sided ostomy in place with some stool and air in the bag, difficult to discern distention given morbidly obese habitus, normal BS, difficult to discern HSM secondary to habitus. Extremities: no cyanosis or clubbing, see skin with significant changes, 3+ pitting pedal to proximal almeida edema. Neurological: patient awake, alert, oriented as noted; cognitive function intact; pupils equally reactive to light and accomodation; cranial nerves II-XII grossly normal, moving all 4 extremities, no focal deficits, strength moderately to severely global decrease secondary to acute complaints and pain. Psychiatric: affect appears normal, no acute evidence of depressive or anxiety feelings. 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, MPV 10.9, Immature Gran % (Auto) 0.800, Neut % (Auto) 85.8 H, Lymph % (Auto) 5.2 L, [place] % (Auto) 6.7, Eos % (Auto) 1.3, Baso % (Auto) 0.2, Absolute Neuts (auto) 9.0 H, Absolute Lymphs (auto) 0.54 L, Nucleated RBC % 0, Platelet Estimate ADEQUATE, RBC Morphology NORM C+C, Anisocytosis RARE 05/16/20 18:15: Sodium 133 L, Potassium 4.6, Chloride 101, Carbon Dioxide 25.0, Anion Gap 7, BUN 62 H, Creatinine 2.03 H, Estim Creat Clear Calc 34.89, Est GFR (MDRD) Af Amer 31 L, Est GFR (MDRD) Non-Af 25 L, BUN/Creatinine Ratio 30.5 H, Glucose 190 H, Calcium 9.6 Assessment/Plan All Active Problems Elevated LFTs (Acute) Pseudohyponatremia (Acute) Acute kidney injury superimposed on CKD (Acute) The patient is a 74 y/o F w/ PMHx: ? Adrenal insufficiency, Chronic pain syndrome, Chronic anemia, Chronic BL LE lymphedema, CKD stage III, Hx Thyroid nodules, Chronic asthma, Hx DVT and PE, Diabetes mellitus type II, PVD, Hx Ovarian CA and melanoma who presents to the [facility] ED on 05/16/20 with history of specifically worsening BL LE pain and more edematous with difficulty walking. Acute kidney injury on CKD stage III: Secondary to likely acute presentation as noted above. Admission BUN/Cr 62/2.03, prior baseline creatinine noted to be primarily 1.1-1.4 but has been elevated previously during acute presentations. Will judiciously hydrate, hold nephrotoxic medications and repeat chemistry in AM. Acute Chronic lymphedema with chronic venous ulcers BL LE: Patient with chronic BL LE lymhedema with stasis ulcers with BL LE chronic erythema, will elevate, consult Wound RN, dressings, SMITH wraps with elevation, defer diuresis given #1 with only judicious hydration given history. Chronic bilateral lower extremity lymphedema: We will continue lower extremity elevation, snug Smith wraps, temporarily holding torsemide given GREGORY as noted. History of DVT, PE: We will continue patient home Eliquis regimen. GERD: We will continue patient home PPI. ? Adrenal insufficiency: We will continue patient home hydrocortisone oral regimen. Chronic asthma: We will continue patient home as needed albuterol regimen, encourage head of bed and incentive spirometry usage. Diabetes mellitus type II: Hold oral home regimen, continue home insulin regimen, ADA diet, accu checks w/ ISS. Morbid Obesity: Weight loss and lifestyle changes encouraged, nutrition consulted. Chronic normocytic anemia: Admission hemoglobin 8.9, baseline appears 7-8, stable, continue to trend. Hx ovarian cancer/melanoma: s/p surgery 2013 in addition to chemotherapy, status post colostomy. Chronic pain syndrome: We will continue patient home chronic and as needed pain regimen, following with palliative care, encourage continued outpatient follow-up. DVT prophylaxis: SCDs, continue patient home apixaban regimen. CODE status: Patient TERE is her son and daughter and living will is currently in place. Discussed CODE status at length including difference between FULL code, DNR-CCA and DNR-CC status. Following discussions about the differences in these status, requested Full Code status. Advanced Care Planning Face to Face Time: 16 minutes. OBSV E&M: 78392 Initial observation care L3 Procedures: 59516 Advncd Care Plan 30 Min
[2020-05-16 21:21] VITALS: BP 123/77; PULSE 105; RESP 22; TEMP 36.6; O2SAT 98
--- NOTE | 2020-05-16 21:40 | ED.VISSUMM ---
- ER Visit Summary Date of Service: 05/16/20 Chief Complaint: Bilateral lower extremity pain History of Present Illness: The patient is a 74 F presenting with lower extremity pain. This has been ongoing for several days. She has a history of chronic lymphedema. She wraps her legs daily. She has had redness and seeping from both lower extremities. She is on Eliquis for history of DVT. She denies chest pain or shortness of breath. Denies fever. Denies other complaints. Physical Examination: Vitals are stable. Patient is afebrile. Alert no acute distress. HEENT exam is unremarkable. Neck is supple. Lungs are clear and equal bilaterally. Heart is regular rate and rhythm. Abdomen is soft nontender nondistended. Extremities bilateral lymphedema with erythema. Dopplerable pulses bilaterally Skin is warm and dry. No focal neurologic deficit. Remainder of exam is unremarkable. Emergency Department Course and Treatment: Bilateral lower extremity ultrasound shows no demonstrated deep venous thrombosis of the bilateral lower extremities. A debris-filled 2.9 cm right posterior knee Pineda''s cyst is present. CBC normal except hemoglobin 8.9. Chemistries show sodium 133, glucose 190, BUN 62, creatinine 2.03. Creatinine elevated from her baseline creatinine. Her legs are consistent with chronic lymphedema and venous stasis changes. Discussed with the hospitalist for admission due to her acute on chronic kidney injury. Disposition: Admission Impression: GREGORY, lymphedema This note was generated with [employer] dictation software. It may contain incorrect words, spelling, and punctuation that were not noted in review of the chart prior to signing ED Disposition - Plan for ED Patient: Referrals: Chente Daigle MD [Primary Care Provider] -
[2020-05-16 21:50] VITALS: BP 123/77; PULSE 105; RESP 22; TEMP 36.6; O2SAT 98
[2020-05-16 22:39] VITALS: BMI 38.8
[2020-05-16 22:59] LABS: Magnesium 2.2 mg/dL (1.6-2.6)
[2020-05-16 23:00] VITALS: BP 107/55; PULSE 97; RESP 18; TEMP 36.7; O2SAT 100
[2020-05-16 23:11] LABS: Bedside Glucose 134 mg/dL (70-110)
[2020-05-16 23:13] LABS: Procalcitonin 0.31 ng/mL (0.00-0.09)
[2020-05-16] MEDS: 0.9% Normal Saline 1,000 ML 100 ML IV (23:15)
[2020-05-16] MEDS: BRIMONIDINE 0.2% 5ML BOTTLE 1 DRP EACH EYE (23:15)
[2020-05-16] MEDS: cycloBENZAPRine HCl 10 MG Tablet PO (23:16)
[2020-05-16] MEDS: APIXABAN 5 MG TABLET PO (23:16)
[2020-05-16] MEDS: Hydrocortisone 10 MG Tablet 5 MG PO (23:17)
[2020-05-16] MEDS: oxyCODONE 5 MG Tablet 10 MG PO (23:28)
[2020-05-17] VITALS (7 sets, daily range): BP systolic 96–127; BP diastolic 48–74; PULSE 70–87; RESP 16–18; TEMP 36.4–37.1; O2SAT 94–99
[2020-05-17] MEDS: oxyCODONE 5 MG Tablet 10 MG PO ×2 (05:32→09:43)
[2020-05-17 06:31] LABS: Bedside Glucose 82 mg/dL (70-110)
[2020-05-17 07:11] LABS: Absolute Lymphocyte Count 0.61 X10^3/uL (0.83-4.51); Absolute Neutrophil Count 5.3 X10^3/uL (2.0-7.7); Basophil# 0.02 X10^3/uL; Basophil% 0.3 % (0-1); Eosinophil# 0.19 X10^3/uL; Eosinophils% 2.8 % (0-5); Hematocrit 24.3 % (37-47); Lymphocyte # 0.61 X10^3/ul (4.0); Mean Corp Hgb Conc 28.8 g/dL (32-36); Mean Corpuscular Hgb 24.5 pg (27.0-32.0); Monocyte% 8.9 % (0-10); NRBC Flagged by Analyzer 0 % (0-5); Neutrophil % 78.3 % (47-70); Platelet Count 394 K/mm3 (150-450); RBC Distribution Width CV 16.6 % (11.6-14.6); RBC Distribution Width SD 51.8 fl (35.1-43.9); Red Blood Count 2.86 M/mm3 (4.2-5.4); White Blood Count 6.8 K/mm3 (4.4-11.0)
--- NOTE | 2020-05-17 07:45 | PN_ITS ---
Patient Problems: Active and Suspected Problems Acute kidney injury superimposed on CKD (Acute) Reason for Visit: Acute kidney injury Adult failure to thrive Subjective: Patient is a 74-year-old lady with multiple comorbidities who presented with worsening edema involving both lower extremities as well as difficulty walking. Patient was noted to have impaired kidney function with BUN of 62 creatinine of 2.0 admitted to monitored bed for subsequent management Objective: GENERAL: cooperative HEENT: Atraumatic; EYES; Anicteric, Normal Conjunctiva NECK; supple, normal thyroid, RESPIRATORY: Diminished to auscultation CARDIOVASCULAR: Regular S1 S2, GI: soft, normoactive bowel sounds, : No Renal angle tenderness; EXTREMITIES: Bilateral lymphedema MUSCULOSKELETAL: no muscle waisting NEURO: Awake; no lateralizing signs. SKIN: No Rash PSYCH; Flat affect Vitals/I&O's: Vital Signs Temp Pulse Resp BP Pulse Ox 98.7 F 87 16 123/74 H 97 05/17/20 05:00 05/17/20 05:00 05/17/20 05:00 05/17/20 05:00 05/17/20 05:00 Oxygen Delivery Method Room Air Weight: 90.2 kg Body Mass Index (BMI) 38.8 Finger Stick Blood Glucose 453 Intake and Output for Last 24 Hours 05/15/20 05/16/20 05/17/20 23:59 23:59 23:59 Intake Total 400 / 400 Balance 400 / 400 Laboratory Results 05/16/20 18:15: WBC 10.4, RBC 3.58 L, Hgb 8.9 L, Hct 30.3 L, MCV 84.6, MCH 24.9 L, MCHC 29.4 L, RDW Std Deviation 50.7 H, RDW Coeff of Zuri 16.4 H, Plt Count PARTITION ASSEMBLER, MPV 10.9, Immature Gran % (Auto) 0.800, Neut % (Auto) 85.8 H, Lymph % (Auto) 5.2 L, Alpine % (Auto) 6.7, Eos % (Auto) 1.3, Baso % (Auto) 0.2, Absolute Neuts (auto) 9.0 H, Absolute Lymphs (auto) 0.54 L, Nucleated RBC % 0, Platelet Estimate ADEQUATE, RBC Morphology NORM C+C, Anisocytosis RARE 05/16/20 18:15: Sodium 133 L, Potassium 4.6, Chloride 101, Carbon Dioxide 25.0, Anion Gap 7, BUN 62 H, Creatinine 2.03 H, Estim Creat Clear Calc 34.89, Est GFR (MDRD) Af Amer 31 L, Est GFR (MDRD) Non-Af 25 L, BUN/Creatinine Ratio 30.5 H, Glucose 190 H, Calcium 9.6 05/16/20 18:15: Magnesium 2.2 05/16/20 18:15: Procalcitonin 0.31 H 05/16/20 23:02: POC Glucose 134 H 05/17/20 06:27: POC Glucose 82 05/17/20 06:55: WBC 6.8, RBC 2.86 L, Hgb 7.0 L, Hct 24.3 L, MCV 85.0, MCH 24.5 L , MCHC 28.8 L, RDW Std Deviation 51.8 H, RDW Coeff of Zuri 16.6 H, Plt Count 394, MPV 9.0, Immature Gran % (Auto) 0.700, Neut % (Auto) 78.3 H, Lymph % (Auto) 9.0 L, Alpine % (Auto) 8.9, Eos % (Auto) 2.8, Baso % (Auto) 0.3, Absolute Neuts (auto) 5.3, Absolute Lymphs (auto) 0.61 L, Nucleated RBC % 0 05/17/20 06:55: Sodium Pending, Potassium Pending, Chloride Pending, Carbon Dioxide Pending, Anion Gap Pending, BUN Pending, Creatinine Pending, Est GFR (MDRD) Af Amer Pending, Est GFR (MDRD) Non-Af Pending, BUN/Creatinine Ratio Pending, Glucose Pending, Calcium Pending, Total Bilirubin Pending, AST Pending, ALT Pending, Alkaline Phosphatase Pending, Total Protein Pending, Albumin Pending Current Medications Acetaminophen (Acetaminophen 325 Mg Tablet) 650 mg PO Q6H PRN PRN PRN Reason: Pain Score 1-10/Temp > 100.7 F Al Hydroxide/Mg Hydroxide (Mag Hydrox/Al Hydrox/Simeth 30 Ml Udc) 30 ml PO Q6H PRN PRN PRN Reason: Gastric Burning Albuterol Sulfate (Albuterol 2.5 Mg/3 Ml Vial.Neb.) 2.5 mg INHALATION Q2H PRN PRN PRN Reason: Dyspnea, wheezing Apixaban (Apixaban 5 Mg Tablet) 5 mg PO BID [facility] Last Admin: 05/16/20 23:16 Dose: 5 mg Documented by: Brimonidine Tartrate (Brimonidine 0.2% 5ml Bottle) 1 drop EACH EYE BID [facility] Last Admin: 05/16/20 23:15 Dose: 1 drop Documented by: Cyclobenzaprine HCl (Cyclobenzaprine Hcl 10 Mg Tablet) 10 mg PO QHS [facility] Last Admin: 05/16/20 23:16 Dose: 10 mg Documented by: Guaifenesin (Guaifenesin 10 Ml Udc (200mg/10ml)) 20 ml PO Q4H PRN PRN PRN Reason: COUGH Hydralazine HCl (Hydralazine 20 Mg/Ml Vial) 10 mg IV Q4H PRN PRN PRN Reason: SBP > 160 Hydrocortisone (Hydrocortisone 10 Mg Tablet) 10 mg PO 0800 [facility] Hydrocortisone (Hydrocortisone 10 Mg Tablet) 5 mg PO DINNER [facility] Last Admin: 05/16/20 23:17 Dose: 5 mg Documented by: Hydromorphone HCl (Hydromorphone 0.5 Mg/0.5 Ml Syringe) 0.5 mg IV Q4H PRN PRN PRN Reason: severe pain 6-10/10 Sodium Chloride () 1,000 mls @ 100 mls/hr IV .Q10H [facility] Last Admin: 05/16/20 23:15 Dose: 100 mls/hr Documented by: Sodium Chloride () 250 mls @ 15 mls/hr IV .[id number] PRN PRN Reason: Saline Flush Insulin Glargine (Insulin Glargine 100 Units/Ml Pen) 20 units SC BID [facility] Last Admin: 05/16/20 23:18 Dose: 20 u Documented by: Insulin Human Lispro (Insulin Lispro 100 Unit/Ml Insuln.Pen) 0 unit SC ACHS [facility]; Protocol Last Admin: 05/17/20 06:28 Dose: Not Given Documented by: Insulin Human Lispro (Insulin Lispro 100 Unit/Ml Insuln.Pen) 15 unit SC TIDCM [facility] Lorazepam (Lorazepam 0.5 Mg Tablet) 0.25 - 0.5 mg PO Q6H PRN PRN PRN Reason: ANXIETY Magnesium Hydroxide (Magnesium Hydroxide 30 Ml Udc) 30 ml PO DAILY PRN PRN PRN Reason: Constipation Melatonin (Melatonin 3 Mg Tablet) 3 mg PO QHS PRN PRN PRN Reason: INSOMNIA Ondansetron HCl (Ondansetron 4 Mg/2 Ml Vial) 4 mg IV Q8H PRN PRN PRN Reason: NAUSEA/VOMITING Oxycodone HCl (Oxycodone 5 Mg Tablet) 10 mg PO Q4H PRN PRN PRN Reason: Pain Score 4-5 Oxycodone HCl (Oxycodone 5 Mg Tablet) 10 mg PO TID [facility] Last Admin: 05/17/20 05:32 Dose: 10 mg Documented by: Pantoprazole Sodium (Pantoprazole Sodium 40 Mg Tablet) 40 mg PO DAILY [facility] Prochlorperazine Edisylate (Prochlorperazine 10 Mg/2 Ml Vial) 5 mg IV Q4H PRN PRN PRN Reason: Breakthrough nausea/vomiting Psyllium Hydrophilic Mucilloid (Psyllium 1 Packet) 1 packet PO DAILY PRN PRN PRN Reason: Constipation Senna/Docusate Sodium (Senna/Docusate Sodium 1 Tablet) 2 tablet PO BID PRN PRN PRN Reason: Constipation Sodium Chloride (0.9% Saline Lock 10 Ml Syringe) 10 - 40 ml IV UD PRN PRN Reason: SALINE FLUSH Throat Lozenges (Benzocaine/Menthol 1 Lozenge) 1 lozenge MUCOUS MEM Q2H PRN PRN PRN Reason: SORE THROAT STROKE Vital Signs/Narrative: Vital Signs Temp Pulse Resp BP Pulse Ox 05/17/20 05:00 98.7 F 87 16 123/74 H 97 Medical Necessity - Tobacco Use Smoking Status: Never smoker Tobacco Use: Non-smoker Assessment/Plan All Active Problems Elevated LFTs (Acute) Pseudohyponatremia (Acute) Acute kidney injury superimposed on CKD (Acute) Patient is a 74-year-old lady with multiple comorbidities who presented with worsening edema involving both lower extremities as well as difficulty walking. Patient was noted to have impaired kidney function with BUN of 62 creatinine of 2.0 admitted to monitored bed for subsequent management 1. Adult failure to thrive ?74-year-old female with multiple comorbidities presenting with difficulty walking and bilateral lower extremity swelling admitted to monitored bed requested for PT OT eval and high school social science teacher consult; did discuss with patient patient may be interested in being [facility] a [facility] facility for rehab 2. Acute kidney injury ?Patient baseline creatinine 1.1-1.4 was 2.03 with BUN of 62 on admission admitted to a monitored bed started on IV fluids with avoidance of nephrotoxic medications and consult placed to nephrology 3. Worsening lymphedema involving both lower extremities ?Managed with lower extremity elevation as well as Smith wrap 4. History of VTE (DVT and PE) ?Patient is on Eliquis did continue 5. History of adrenal insufficiency ?Patient is on hydrocortisone discontinued 6. GERD ?On PPI 7. Mild intermittent asthma ?Aerosol treatment as needed 8. Diabetes mellitus type 2 ?Patient oral agents held. Placed on Accu-Cheks before meals and at bedtime with sliding scale coverage 9. Morbid obesity with BMI of 40.2 ?Weight loss advised 10. History of ovarian CA ?Managed with surgery and chemotherapy with subsequent colostomy 11. History of melanoma ?Apparently in remission 12. Chronic pain syndrome ?Did continue home regimen 13. Anemia - Secondary to chronic disorder monitoring H&H and transfuse if patient becomes symptomatic or hemoglobin falls below 7. With patient's hemoglobin being 7 this a.m. repeat labs ordered for known and if below 6 patient be transfused with 1 unit PRBC with subsequent monitoring of CBC ordered 14. DVT prophylaxis ?Patient is on Eliquis OBSV E&M: [id number] Subsequent observation care L3
[2020-05-17 07:48] LABS: ALB/GLOB Ratio 0.3 RATIO (0.9-2.4); AST(SGOT) 13 U/L (15-37); Alanine Aminotransfer ALT/SGPT 12 U/L (13-56); Albumin, Serum 1.5 g/dL (3.2-5.0); Alkaline Phosphatase 135 U/L (45-117); Anion Gap 8 (5-15); BUN 55 mg/dL (7-18); BUN/Creat Ratio 34.4 RATIO (10-20); Calcium,Total 8.4 mg/dL (8.5-10.1); Chloride 105 mmol/L (98-107); EST Glomerular Filtration Rate 33 mL/min (>60); Est Glom Filt Rate - Afr Amer 40 mL/min (>60); Estimated Creatinine Clearance 43.93 ml/min; Globulin 4.4 g/dL (2.2-4.2); Glucose 76 mg/dL (74-106); Potassium 3.7 mmol/L (3.5-5.1); Protein, Total 5.9 g/dL (6.4-8.2); Sodium Level 139 mmol/L (136-145)
[2020-05-17 08:13] LABS: Platelet Count 330 K/mm3 (150-450); RET-HE 22.6 pg (30-35); Reticulocyte Count 2.66 % (0.5-1.5)
[2020-05-17 08:19] LABS: Ferritin 1037 ng/mL (8-252); Iron 22 ug/dL (50-170); Iron Binding Capacity,Total 130 ug/dL (250-450); PERCENT IRON SATURATION 16.9 % (15.0-55.0)
[2020-05-17 08:35] LABS: Vitamin B12 587 pg/mL (211-911)
--- NOTE | 2020-05-17 09:06 | CASEMGMT ---
Addendum entered by Sehlbi Heck 05/17/20 13:19: ROXIE placed green sheet on chart. Addendum entered by Shelbi Heck 05/17/20 12:52: SW faxed updated clinicals to [facility]. Original Note: Social Work Note SW reviewed chart. Pt is active with [facility]. SW placed a call to [facility] and left message regarding pt's admission. Shelbi Heck TELEPHONE DIRECTORY DELIVERER, PLASTICS WORKER
[2020-05-17] MEDS: Insulin Lispro 100 UNIT/ML INSULN.PEN 15 UNIT SC ×2 (09:36→12:34)
[2020-05-17] MEDS: Hydrocortisone 10 MG Tablet PO (09:36)
[2020-05-17] MEDS: BRIMONIDINE 0.2% 5ML BOTTLE 1 DRP EACH EYE ×2 (09:37→21:35)
[2020-05-17] MEDS: 0.9% Normal Saline 1,000 ML 100 ML IV ×2 (09:37→17:55)
[2020-05-17] MEDS: APIXABAN 5 MG TABLET PO ×2 (09:37→21:35)
[2020-05-17] MEDS: Acetaminophen 325 MG Tablet 650 MG PO ×2 (09:43→21:35)
--- NOTE | 2020-05-17 10:18 | NURSING ---
Removed the ostomy appliance. patient has a small amount of soft brown stool in the appliance. stoma is pink. patient has a very large peristomal hernia that has been present for quite some time. pt has seen a couple of surgeons for this and states it is not operable. stoma measures approx 2 1/2 and is well budded. peristomal skin is intact. cleansed the peristomal skin with soap and water. pat dry. applied a new 2 piece flat [place] appliance with an [employer] ring and small amount if paste per pt request. pt tolerated well.
--- NOTE | 2020-05-17 10:34 | NURSING ---
wound photo: bilateral lower legs
--- NOTE | 2020-05-17 10:35 | NURSING ---
wound photo: right buttock
--- NOTE | 2020-05-17 10:49 | CASEMGMT ---
BRIT RAMON NOTE: Pt was discharged home with [facility] last admission. Call placed to [facility] and spoke w/Daphne. She was made aware pt admitted to [facility] 05/16 under OBS status. She states pt is still active with them for PT/OT only, but states they did start of care 04/20/20 and pt has declined any therapy since then. She states they have also offered pt SN, but she has declined that as well. H/P faxed to [facility] at this time. Marcel RAMIREZ RN, CM
[2020-05-17 10:53] LABS: Hematocrit 26.1 % (37-47); Hemoglobin 7.7 g/dL (12.0-15.0)
--- NOTE | 2020-05-17 11:00 | CASEMGMT ---
BRIT RAMON Face to Face with patient for initial transition planning/care coordination assessment. BRIT RAMON introduced self and role at [facility]. Patient lying in bed, alert and oriented. Patient willing to participate in assessment and is able to answer all questions appropriately. Care providers, pharmacy, and demographics verified. Patient wishes to discharge home, with resumption of HHC with [facility]. Patient states she has no further needs or concerns at this time. CM to follow for discharge planning needs that may arise. PCP: [facility]: Patient to scheduled appt with Dr. Covington, healthcare or medical Preferred Pharmacy: [facility] Insurance: 3seventy [facility] Prescription Benefit: yes Living Will/HPOA: yes, son Luis Keys LNOK: son, daughter Living Arrangements: Patient lives alone in a 2 story home with bed and bath on first floor. Patient has 3 steps and railing to enter the home. Patient states she is independent at home. Transportation: daughters DME/HHC: Patient states she has shower chair, BSC, raised toilet, walker, wheelchair, lift chair, grab bars, and glucometer. Patient is active with [facility] for therapy. Patient states she has been to [facility] and [facility] previously Disposition Plan: Patient to discharge home with resumption of HHC, family support, and follow-up plans in place. Shelbi RAMIREZ, RN, CM
[2020-05-17 11:26] LABS: Bedside Glucose 98 mg/dL (70-110)
[2020-05-17] MEDS: Pantoprazole Sodium 40 MG Tablet PO (12:34)
--- NOTE | 2020-05-17 15:10 | CASEMGMT ---
BRIT RAMON in to discuss [employer] form with patient. RN YENNY explained [employer] form to patient, patient voiced understanding. Patient signed [employer] form and filed in chart. BRIT RAMON provided copy of signed [employer] form to patient. Patient had no further questions or concerns at this time.
[2020-05-17 16:20] LABS: Bedside Glucose 86 mg/dL (70-110)
[2020-05-17] MEDS: Hydrocortisone 10 MG Tablet 5 MG PO (17:55)
--- NOTE | 2020-05-17 19:42 | PCS.PANDOC ---
PANDEMIC DOCUMENTATION INITIATED: Date: 05/16/2020 Time: 2229
[2020-05-17 21:26] LABS: Bedside Glucose 179 mg/dL (70-110)
[2020-05-17] MEDS: cycloBENZAPRine HCl 10 MG Tablet PO (21:35)
[2020-05-17] MEDS: Insulin Lispro 100 UNIT/ML INSULN.PEN SC (21:37)
[2020-05-18] VITALS (9 sets, daily range): BP systolic 91–115; BP diastolic 37–54; PULSE 64–86; RESP 18; TEMP 36.5–36.8; O2SAT 98–100
[2020-05-18] MEDS: fentaNYL 100 MCG/2 ML Ampul 25 MCG IV ×2 (00:27→07:26)
[2020-05-18] MEDS: 0.9% Normal Saline 1,000 ML 100 ML IV ×3 (02:42→22:11)
[2020-05-18 06:31] LABS: Bedside Glucose 58 mg/dL (70-110)
[2020-05-18] MEDS: 0.9% Saline Lock 10 ML Syringe IV (07:27)
[2020-05-18] MEDS: Dextrose 50%-Water 25 GM/50 ML DISP.SYRIN IV (07:27)
--- NOTE | 2020-05-18 07:45 | PCM.PN.HOSP ---
Patient Problems: Active and Suspected Problems Acute kidney injury superimposed on CKD (Acute) Vitals/I&O's: Vital Signs Temp Pulse Resp BP Pulse Ox 97.8 F 86 18 94/37 L 100 05/18/20 06:19 05/18/20 07:32 05/18/20 07:32 05/18/20 06:19 05/18/20 07:32 Oxygen Delivery Method Room Air Weight: 89.3 kg Body Mass Index (BMI) 38.8 Finger Stick Blood Glucose 453 Intake and Output for Last 24 Hours 05/16/20 05/17/20 05/18/20 23:59 23:59 23:59 Intake Total 3130 / 3130 1278.33 / 1278.33 Output Total 800 / 800 300 / 300 Balance 2330 / 2330 978.33 / 978.33 Laboratory Results 05/16/20 18:15: Vitamin B12 587 05/17/20 06:55: Sodium 139, Potassium 3.7, Chloride 105, Carbon Dioxide 26.0, Anion Gap 8, BUN 55 H, Creatinine 1.60 H, Estim Creat Clear Calc 43.93, Est GFR (MDRD) Af Amer 40 L, Est GFR (MDRD) Non-Af 33 L, BUN/Creatinine Ratio 34.4 H, Glucose 76, Calcium 8.4 L, Total Bilirubin 0.40, AST 13 L, ALT 12 L, Alkaline Phosphatase 135 H, Total Protein 5.9 L, Albumin 1.5 L, Globulin 4.4 H, Albumin/Globulin Ratio 0.3 L 05/17/20 06:55: Retic Count 2.66 H, Immature Retic Fraction 16.70 H, Retic Hgb Equivalent 22.6 L 05/17/20 06:55: Iron 22 L, TIBC 130 L, Iron Saturation 16.9, Ferritin 1037 H 05/17/20 10:43: Hgb 7.7 L, Hct 26.1 L 05/17/20 11:22: POC Glucose 98 05/17/20 16:10: POC Glucose 86 05/17/20 21:20: POC Glucose 179 H 05/18/20 06:23: POC Glucose 58 L 05/18/20 07:00: WBC Pending, RBC Pending, Hgb Pending, Hct Pending, MCV Pending, MCH Pending, MCHC Pending, RDW Std Deviation Pending, RDW Coeff of Zuri Pending, Plt Count Pending 05/18/20 07:00: Sodium Pending, Potassium Pending, Chloride Pending, Carbon Dioxide Pending, Anion Gap Pending, BUN Pending, Creatinine Pending, Est GFR (MDRD) Af Amer Pending, Est GFR (MDRD) Non-Af Pending, BUN/Creatinine Ratio Pending, Glucose Pending, Calcium Pending, Magnesium Pending Current Medications Acetaminophen (Acetaminophen 325 Mg Tablet) 650 mg PO Q6H PRN PRN PRN Reason: Pain Score 1-10/Temp > 100.7 F Last Admin: 05/17/20 21:35 Dose: 650 mg Documented by: Al Hydroxide/Mg Hydroxide (Mag Hydrox/Al Hydrox/Simeth 30 Ml Udc) 30 ml PO Q6H PRN PRN PRN Reason: Gastric Burning Albuterol Sulfate (Albuterol 2.5 Mg/3 Ml Vial.Neb.) 2.5 mg INHALATION Q2H PRN PRN PRN Reason: Dyspnea, wheezing Apixaban (Apixaban 5 Mg Tablet) 5 mg PO BID [facility] Last Admin: 05/17/20 21:35 Dose: 5 mg Documented by: Brimonidine Tartrate (Brimonidine 0.2% 5ml Bottle) 1 drop EACH EYE BID [facility] Last Admin: 05/17/20 21:35 Dose: 1 drop Documented by: Cyclobenzaprine HCl (Cyclobenzaprine Hcl 10 Mg Tablet) 10 mg PO QHS [facility] Last Admin: 05/17/20 21:35 Dose: 10 mg Documented by: Guaifenesin (Guaifenesin 10 Ml Udc (200mg/10ml)) 20 ml PO Q4H PRN PRN PRN Reason: COUGH Hydralazine HCl (Hydralazine 20 Mg/Ml Vial) 10 mg IV Q4H PRN PRN PRN Reason: SBP > 160 Hydrocortisone (Hydrocortisone 10 Mg Tablet) 10 mg PO 0800 [facility] Last Admin: 05/17/20 09:36 Dose: 10 mg Documented by: Hydrocortisone (Hydrocortisone 10 Mg Tablet) 5 mg PO DINNER [facility] Last Admin: 05/17/20 17:55 Dose: 5 mg Documented by: Hydromorphone HCl (Hydromorphone 0.5 Mg/0.5 Ml Syringe) 0.5 mg IV Q4H PRN PRN PRN Reason: severe pain 6-10/10 Sodium Chloride () 1,000 mls @ 100 mls/hr IV .Q10H [facility] Last Admin: 05/18/20 02:42 Dose: 100 mls/hr Documented by: Sodium Chloride () 250 mls @ 15 mls/hr IV .[id number] PRN PRN Reason: Saline Flush Insulin Glargine (Insulin Glargine 100 Units/Ml Pen) 20 units SC BID [facility] Last Admin: 05/17/20 21:38 Dose: 20 u Documented by: Insulin Human Lispro (Insulin Lispro 100 Unit/Ml Insuln.Pen) 0 unit SC ACHS [facility]; Protocol Last Admin: 05/18/20 07:27 Dose: Not Given Documented by: Insulin Human Lispro (Insulin Lispro 100 Unit/Ml Insuln.Pen) 15 unit SC TIDCM [facility] Last Admin: 05/17/20 17:52 Dose: Not Given Documented by: Lorazepam (Lorazepam 0.5 Mg Tablet) 0.25 - 0.5 mg PO Q6H PRN PRN PRN Reason: ANXIETY Magnesium Hydroxide (Magnesium Hydroxide 30 Ml Udc) 30 ml PO DAILY PRN PRN PRN Reason: Constipation Melatonin (Melatonin 3 Mg Tablet) 3 mg PO QHS PRN PRN PRN Reason: INSOMNIA Ondansetron HCl (Ondansetron 4 Mg/2 Ml Vial) 4 mg IV Q8H PRN PRN PRN Reason: NAUSEA/VOMITING Oxycodone HCl (Oxycodone 5 Mg Tablet) 10 mg PO Q4H PRN PRN PRN Reason: Pain Score 4-5 Oxycodone HCl (Oxycodone 5 Mg Tablet) 10 mg PO TID [facility] Last Admin: 05/18/20 07:26 Dose: Not Given Documented by: Pantoprazole Sodium (Pantoprazole Sodium 40 Mg Tablet) 40 mg PO DAILY [facility] Last Admin: 05/17/20 12:34 Dose: 40 mg Documented by: Prochlorperazine Edisylate (Prochlorperazine 10 Mg/2 Ml Vial) 5 mg IV Q4H PRN PRN PRN Reason: Breakthrough nausea/vomiting Psyllium Hydrophilic Mucilloid (Psyllium 1 Packet) 1 packet PO DAILY PRN PRN PRN Reason: Constipation Senna/Docusate Sodium (Senna/Docusate Sodium 1 Tablet) 2 tablet PO BID PRN PRN PRN Reason: Constipation Sodium Chloride (0.9% Saline Lock 10 Ml Syringe) 10 - 40 ml IV UD PRN PRN Reason: SALINE FLUSH Last Admin: 05/18/20 07:27 Dose: 10 ml Documented by: Throat Lozenges (Benzocaine/Menthol 1 Lozenge) 1 lozenge MUCOUS MEM Q2H PRN PRN PRN Reason: SORE THROAT STROKE Vital Signs/Narrative: Vital Signs Temp Pulse Resp BP Pulse Ox 05/18/20 07:32 86 18 100 05/18/20 07:25 85 18 100 05/18/20 06:19 97.8 F 78 18 94/37 L 99 Medical Necessity - Tobacco Use Smoking Status: Never smoker Tobacco Use: Non-smoker Assessment/Plan All Active Problems Elevated LFTs (Acute) Pseudohyponatremia (Acute) Acute kidney injury superimposed on CKD (Acute) Patient is a 74-year-old lady with multiple comorbidities who presented with worsening edema involving both lower extremities as well as difficulty walking. Patient was noted to have impaired kidney function with BUN of 62 creatinine of 2.0 admitted to monitored bed for subsequent management 1. Adult failure to thrive ?74-year-old female with multiple comorbidities presenting with difficulty walking and bilateral lower extremity swelling admitted to monitored bed requested for PT OT eval and social services director consult; did discuss with patient patient may be interested in being discharged to a senior care facility for rehab 2. Acute kidney injury ?Patient baseline creatinine 1.1-1.4 was 2.03 with BUN of 62 on admission admitted to a monitored bed started on IV fluids with avoidance of nephrotoxic medications and consult placed to nephrology 3. Worsening lymphedema involving both lower extremities ?Managed with lower extremity elevation as well as Smith wrap 4. History of VTE (DVT and PE) ?Patient is on Eliquis did continue 5. History of adrenal insufficiency ?Patient is on hydrocortisone discontinued 6. GERD ?On PPI 7. Mild intermittent asthma ?Aerosol treatment as needed 8. Diabetes mellitus type 2 ?Patient oral agents held. Placed on Accu-Cheks before meals and at bedtime with sliding scale coverage 9. Morbid obesity with BMI of 40.2 ?Weight loss advised 10. History of ovarian CA ?Managed with surgery and chemotherapy with subsequent colostomy 11. History of melanoma ?Apparently in remission 12. Chronic pain syndrome ?Did continue home regimen 13. Anemia - Secondary to chronic disorder monitoring H&H and transfuse if patient becomes symptomatic or hemoglobin falls below 7. With patient's hemoglobin being 7 this a.m. repeat labs ordered for known and if below 6 patient be transfused with 1 unit PRBC with subsequent monitoring of CBC ordered 14. DVT prophylaxis ?Patient is on Eliquis
[2020-05-18 07:49] LABS: Hematocrit 26.7 % (37-47); Hemoglobin 7.5 g/dL (12.0-15.0); Mean Corp Hgb Conc 28.1 g/dL (32-36); Mean Corpuscular Hgb 24.4 pg (27.0-32.0); Mean Corpuscular Volume 86.7 fL (81-99); Mean Platelet Vol. 10.9 fl (6.2-12.0); Platelet Count 218 K/mm3 (150-450); RBC Distribution Width CV 17.1 % (11.6-14.6); RBC Distribution Width SD 53.8 fl (35.1-43.9); Red Blood Count 3.08 M/mm3 (4.2-5.4); White Blood Count 7.4 K/mm3 (4.4-11.0)
[2020-05-18] MEDS: Hydrocortisone 10 MG Tablet PO (07:49)
[2020-05-18 08:11] LABS: Anion Gap 8 (5-15); BUN 50 mg/dL (7-18); Calcium,Total 8.8 mg/dL (8.5-10.1); Chloride 107 mmol/L (98-107); Creatinine, Serum 1.43 mg/dL (0.55-1.02); EST Glomerular Filtration Rate 38 mL/min (>60); Est Glom Filt Rate - Afr Amer 46 mL/min (>60); Estimated Creatinine Clearance 48.66 ml/min; Glucose 94 mg/dL (74-106); Magnesium 2.5 mg/dL (1.6-2.6); Potassium 3.5 mmol/L (3.5-5.1); Sodium Level 138 mmol/L (136-145)
[2020-05-18] MEDS: APIXABAN 5 MG TABLET PO ×2 (09:59→22:11)
[2020-05-18] MEDS: BRIMONIDINE 0.2% 5ML BOTTLE 1 DRP EACH EYE ×2 (09:59→22:11)
[2020-05-18] MEDS: Pantoprazole Sodium 40 MG Tablet PO (10:00)
--- NOTE | 2020-05-18 10:04 | DCINST_ITS ---
- Discharge Diagnoses Current Active Problems: Current Active and Chronic Problems Acute kidney injury superimposed on CKD (Acute) Stage III chronic kidney disease (Chronic) Multiple thyroid nodules (Chronic) Lymphedema of both lower extremities (Chronic) Asthma (Chronic) Reported, severity unknown History of DVT (deep vein thrombosis) (Chronic) History of pulmonary embolism (Chronic) Type II diabetes mellitus (Chronic) Cancer of ovary (Chronic) You will use the following diet at home:: Calorie/Carbohydrate Controlled (specify 1200, 1400, etc) - 1800 Your food should be the consistency of: Regular Discharge Activity: Return to Normal Activity, May not drive while taking narcotic pain medications. Allergies/Adverse Reactions: Allergies clindamycin Allergy (Verified 05/16/20 17:) Other iodine Allergy (Verified 05/16/20 17:) rash/incoherent meperidine HCl [From Demerol] Allergy (Verified 05/16/20 17:) Nausea/vomiting/diarrhea Penicillins Allergy (Verified 05/16/20 17:29) Itching/hives adhesive tape Adverse Reaction (Verified 05/16/20 17:29) blisters BLISTERS aspirin Adverse Reaction (Verified 05/16/20 17:29) nosebleeds diazepam [From Valium] Adverse Reaction (Verified 05/16/20 17:29) Nausea/Vom/Diarrhea egg Adverse Reaction (Verified 05/16/20 17:29) Diarrhea levofloxacin [From Levaquin] Adverse Reaction (Verified 05/16/20 17:29) Vomiting methadone Adverse Reaction (Verified 05/16/20 17:29) Upset Stomach morphine Adverse Reaction (Verified 05/16/20 17:29) Nausea/Vom/Diarrhea sulfamethoxazole [From Bactrim] Adverse Reaction (Verified 05/16/20 17:29) Nausea/Vom/Diarrhea trimethoprim [From Bactrim] Adverse Reaction (Verified 05/16/20 17:29) Nausea/Vom/Diarrhea Medications to take at Discharge Cyanocobalamin [Vitamin B12] 1,000 mcg PO DAILY@0800 05/29/15 cycloBENZAPRine HCl [Flexeril] 10 mg PO QHS 05/29/15 Apixaban [Eliquis] 5 mg PO BID 06/12/15 proMETHazine tablet [Phenergan tablet] 25 mg PO 4X/DAY PRN PRN #20 tablet 07/20/15 Albuterol IH (ProAir) [Proair Hfa] 2 puff INHALATION Q6H PRN PRN 05/27/16 Ondansetron HCl [Zofran] 8 mg PO TID PRN PRN 05/27/16 Cholecalciferol (VIT D3) [Vitamin D3] 2,000 unit PO DAILY 04/01/18 DiphenhydrAMINE [Benadryl] 25 mg PO BID PRN 01/12/19 Lorazepam [Ativan] 0.25 - 0.5 mg PO Q6H PRN PRN 01/12/19 Brimonidine Tartrate 0.2% [Brimonidine 0.2% 5Ml Bottle] 1 drp EACH EYE BID 04/22/19 Cetirizine HCl 10 mg PO DAILY PRN 04/22/19 Difluprednate [Durezol] 1 drp EACH EYE QODAY 04/22/19 Oxycodone [Oxyir] 5 mg PO Q4H PRN PRN 04/22/19 Hydrocortisone [Cortef] 10 mg PO BID 01/15/20 Acetaminophen [Tylenol Tablet] 650 mg PO Q6H PRN PRN tab 01/16/20 Oxycodone [Oxyfast] 10 mg PO TID 01/30/20 Insulin Lispro [Humalog KwikPen] See Protocol SC ACHS insuln.pen 04/18/20 Pantoprazole Sodium [Protonix] 40 mg PO DAILY #30 tab 04/18/20 Ascorbic Acid [Vitamin C] 4,000 mg PO DAILY 05/16/20 Insulin Glargine [Lantus SoloStar Pen] 10 units SC DAILY #100 units 05/18/20 Insulin Lispro [Humalog] 5 unit SC TIDCM #1 ml 05/18/20 Primary Care Physician: Chente Daigle MD [Primary Care Provider] - Please follow up with your Primary Care Physician in: in 1 week Test Results: Test results from this visit will be discussed in further detail at your follow- up appointment, if applicable. Please Follow Up With: Denise,Wound When: on 05/24/2020 Proposed Discharge Date: 05/18/20
--- NOTE | 2020-05-18 10:05 | PCM.DC.SUM ---
Discharge Date and Diagnosis - Problem List Patient Problems: Active and Suspected Problems Acute kidney injury superimposed on CKD (Acute) Date of Admission: 05/16/20 Date of Discharge: 05/18/20 - Primary Discharge Diagnosis Acute Problems: Active Problems Acute kidney injury superimposed on CKD (Acute) - Secondary Discharge Diagnosis Chronic Problems: Chronic Problems Stage III chronic kidney disease (Chronic) Venous ulcer of right lower extremity without varicose veins (Chronic) Multiple thyroid nodules (Chronic) Thyromegaly (Chronic) Lymphedema of both lower extremities (Chronic) Melanoma (Chronic) Asthma (Chronic) Reported, severity unknown History of DVT (deep vein thrombosis) (Chronic) History of pulmonary embolism (Chronic) Type II diabetes mellitus (Chronic) Cancer of ovary (Chronic) Anemia (Chronic) Venous insufficiency (Chronic) Poor dentition (Chronic) Hospital Course and Treatment Imaging Results: Clinical Impression(s) from Imaging Studies Venous Duplex 05/16/20 19:52 IMPRESSION: 1. No demonstrated deep venous thrombosis of the bilateral lower extremities. 2. A debris-filled 2.9 cm right posterior knee Pineda''s cyst is present. Electronically Signed: Ronn Feliz MD at 21:18 EST , Service support , Consultations 05/16/20 22:35 Consult: Onc/Wound/billet sawyer Routine Comment: Operations: None Summary of Care Provided: Patient is a 74-year-old lady with multiple comorbidities who presented with worsening edema involving both lower extremities as well as difficulty walking. Patient was noted to have impaired kidney function with BUN of 62 creatinine of 2.0 admitted to monitored bed for subsequent management 1. Adult failure to thrive ?74-year-old female with multiple comorbidities presenting with difficulty walking and bilateral lower extremity swelling admitted to monitored bed requested for PT OT eval and social secretary consult; did discuss with patient patient may be interested in being discharged to a residential facility for rehab -05/18/2020. Patient after discussion with case management refused SNF placement. Patient was instead discharged home with home health which she previously had. 2. Acute kidney injury ?Patient baseline creatinine 1.1-1.4 was 2.03 with BUN of 62 on admission admitted to a monitored bed started on IV fluids with avoidance of nephrotoxic medications and consult placed to nephrology -05/18/2020. Creatinine at the time of discharge was 1.4. Patient Demadex was discontinued instructed to follow-up with PCP within a week for repeat labs and possible resumption if needed 3. Worsening lymphedema involving both lower extremities ?Managed with lower extremity elevation as well as Smith wrap 4. History of VTE (DVT and PE) ?Patient is on Eliquis did continue 5. History of adrenal insufficiency ?Patient is on hydrocortisone discontinued 6. GERD ?On PPI 7. Mild intermittent asthma ?Aerosol treatment as needed 8. Diabetes mellitus type 2 ?Patient oral agents held. Placed on Accu-Cheks before meals and at bedtime with sliding scale coverage -Adjusted patient home insulin regimen in view of episodes of hypoglycemia 9. Morbid obesity with BMI of 40.2 ?Weight loss advised 10. History of ovarian CA ?Managed with surgery and chemotherapy with subsequent colostomy 11. History of melanoma ?Apparently in remission 12. Chronic pain syndrome ?Did continue home regimen 13. Anemia - Secondary to chronic disorder monitoring H&H and transfuse if patient becomes symptomatic or hemoglobin falls below 7. With patient's hemoglobin being 7 this a.m. repeat labs ordered for known and if below 6 patient be transfused with 1 unit PRBC with subsequent monitoring of CBC ordered 14. DVT prophylaxis ?Patient is on Eliquis Patient Problems: Active and Suspected Problems Acute kidney injury superimposed on CKD (Acute) Objective: GENERAL: cooperative HEENT: Atraumatic; EYES; Anicteric, Normal Conjunctiva NECK; supple, normal thyroid, RESPIRATORY: Diminished to auscultation CARDIOVASCULAR: Regular S1 S2, GI: soft, normoactive bowel sounds, : No Renal angle tenderness; EXTREMITIES: Bilateral lymphedema MUSCULOSKELETAL: no muscle waisting NEURO: Awake; no lateralizing signs. SKIN: No Rash PSYCH; Flat affect - Physical Exam Vitals/I&O's: Vital Signs Temp Pulse Resp BP Pulse Ox 97.7 F L 84 18 115/54 L 100 05/18/20 09:20 05/18/20 09:20 05/18/20 09:20 05/18/20 09:20 05/18/20 09:20 Oxygen Delivery Method Room Air Weight: 89.3 kg Body Mass Index (BMI) 38.8 Finger Stick Blood Glucose 453 Intake and Output for Last 24 Hours 05/16/20 05/17/20 05/18/20 23:59 23:59 23:59 Intake Total 3130 / 3130 1278.33 / 1278.33 Output Total 800 / 800 300 / 300 Balance 2330 / 2330 978.33 / 978.33 Laboratory Results 05/17/20 10:43: Hgb 7.7 L, Hct 26.1 L 05/17/20 11:22: POC Glucose 98 05/17/20 16:10: POC Glucose 86 05/17/20 21:20: POC Glucose 179 H 05/18/20 06:23: POC Glucose 58 L 05/18/20 07:00: WBC 7.4, RBC 3.08 L, Hgb 7.5 L, Hct 26.7 L, MCV 86.7, MCH 24.4 L, MCHC 28.1 L, RDW Std Deviation 53.8 H, RDW Coeff of Zuri 17.1 H, Plt Count 218, MPV 10.9 05/18/20 07:00: Sodium 138, Potassium 3.5, Chloride 107, Carbon Dioxide 23.0, Anion Gap 8, BUN 50 H, Creatinine 1.43 H, Estim Creat Clear Calc 48.66, Est GFR (MDRD) Af Amer 46 L, Est GFR (MDRD) Non-Af 38 L, BUN/Creatinine Ratio 35.0 H, Glucose 94, Calcium 8.8, Magnesium 2.5 Current Medications Acetaminophen (Acetaminophen 325 Mg Tablet) 650 mg PO Q6H PRN PRN PRN Reason: Pain Score 1-10/Temp > 100.7 F Last Admin: 05/17/20 21:35 Dose: 650 mg Documented by: Al Hydroxide/Mg Hydroxide (Mag Hydrox/Al Hydrox/Simeth 30 Ml Udc) 30 ml PO Q6H PRN PRN PRN Reason: Gastric Burning Albuterol Sulfate (Albuterol 2.5 Mg/3 Ml Vial.Neb.) 2.5 mg INHALATION Q2H PRN PRN PRN Reason: Dyspnea, wheezing Apixaban (Apixaban 5 Mg Tablet) 5 mg PO BID [facility] Last Admin: 05/17/20 21:35 Dose: 5 mg Documented by: Brimonidine Tartrate (Brimonidine 0.2% 5ml Bottle) 1 drop EACH EYE BID [facility] Last Admin: 05/17/20 21:35 Dose: 1 drop Documented by: Cyclobenzaprine HCl (Cyclobenzaprine Hcl 10 Mg Tablet) 10 mg PO QHS [facility] Last Admin: 05/17/20 21:35 Dose: 10 mg Documented by: Guaifenesin (Guaifenesin 10 Ml Udc (200mg/10ml)) 20 ml PO Q4H PRN PRN PRN Reason: COUGH Hydralazine HCl (Hydralazine 20 Mg/Ml Vial) 10 mg IV Q4H PRN PRN PRN Reason: SBP > 160 Hydrocortisone (Hydrocortisone 10 Mg Tablet) 10 mg PO 0800 [facility] Last Admin: 05/18/20 07:49 Dose: 10 mg Documented by: Hydrocortisone (Hydrocortisone 10 Mg Tablet) 5 mg PO DINNER [facility] Last Admin: 05/17/20 17:55 Dose: 5 mg Documented by: Hydromorphone HCl (Hydromorphone 0.5 Mg/0.5 Ml Syringe) 0.5 mg IV Q4H PRN PRN PRN Reason: severe pain 6-10/10 Sodium Chloride () 1,000 mls @ 100 mls/hr IV .Q10H [facility] Last Admin: 05/18/20 02:42 Dose: 100 mls/hr Documented by: Sodium Chloride () 250 mls @ 15 mls/hr IV .[id number] PRN PRN Reason: Saline Flush Insulin Glargine (Insulin Glargine 100 Units/Ml Pen) 20 units SC BID [facility] Last Admin: 05/17/20 21:38 Dose: 20 u Documented by: Insulin Human Lispro (Insulin Lispro 100 Unit/Ml Insuln.Pen) 0 unit SC ACHS [facility]; Protocol Last Admin: 05/18/20 07:27 Dose: Not Given Documented by: Insulin Human Lispro (Insulin Lispro 100 Unit/Ml Insuln.Pen) 15 unit SC TIDCM [facility] Last Admin: 05/18/20 09:09 Dose: Not Given Documented by: Lorazepam (Lorazepam 0.5 Mg Tablet) 0.25 - 0.5 mg PO Q6H PRN PRN PRN Reason: ANXIETY Magnesium Hydroxide (Magnesium Hydroxide 30 Ml Udc) 30 ml PO DAILY PRN PRN PRN Reason: Constipation Melatonin (Melatonin 3 Mg Tablet) 3 mg PO QHS PRN PRN PRN Reason: INSOMNIA Ondansetron HCl (Ondansetron 4 Mg/2 Ml Vial) 4 mg IV Q8H PRN PRN PRN Reason: NAUSEA/VOMITING Oxycodone HCl (Oxycodone 5 Mg Tablet) 10 mg PO Q4H PRN PRN PRN Reason: Pain Score 4-5 Oxycodone HCl (Oxycodone 5 Mg Tablet) 10 mg PO TID [facility] Last Admin: 05/18/20 07:26 Dose: Not Given Documented by: Pantoprazole Sodium (Pantoprazole Sodium 40 Mg Tablet) 40 mg PO DAILY [facility] Last Admin: 05/17/20 12:34 Dose: 40 mg Documented by: Prochlorperazine Edisylate (Prochlorperazine 10 Mg/2 Ml Vial) 5 mg IV Q4H PRN PRN PRN Reason: Breakthrough nausea/vomiting Psyllium Hydrophilic Mucilloid (Psyllium 1 Packet) 1 packet PO DAILY PRN PRN PRN Reason: Constipation Senna/Docusate Sodium (Senna/Docusate Sodium 1 Tablet) 2 tablet PO BID PRN PRN PRN Reason: Constipation Sodium Chloride (0.9% Saline Lock 10 Ml Syringe) 10 - 40 ml IV UD PRN PRN Reason: SALINE FLUSH Last Admin: 05/18/20 07:27 Dose: 10 ml Documented by: Throat Lozenges (Benzocaine/Menthol 1 Lozenge) 1 lozenge MUCOUS MEM Q2H PRN PRN PRN Reason: SORE THROAT Discharge Diet: 1800 Calorie Control Diet Discharge Activity: Return to Normal Activity, May not drive while taking narcotic pain medications. Home Medications: Medications to take at Discharge Cyanocobalamin [Vitamin B12] 1,000 mcg PO DAILY@0800 05/29/15 cycloBENZAPRine HCl [Flexeril] 10 mg PO QHS 05/29/15 Apixaban [Eliquis] 5 mg PO BID 06/12/15 proMETHazine tablet [Phenergan tablet] 25 mg PO 4X/DAY PRN PRN #20 tablet 07/20/15 Albuterol IH (ProAir) [Proair Hfa] 2 puff INHALATION Q6H PRN PRN 05/27/16 Ondansetron HCl [Zofran] 8 mg PO TID PRN PRN 05/27/16 Cholecalciferol (VIT D3) [Vitamin D3] 2,000 unit PO DAILY 12/14/18 DiphenhydrAMINE [Benadryl] 25 mg PO BID PRN 01/12/19 Lorazepam [Ativan] 0.25 - 0.5 mg PO Q6H PRN PRN 01/12/19 Brimonidine Tartrate 0.2% [Brimonidine 0.2% 5Ml Bottle] 1 drp EACH EYE BID 04/22/19 Cetirizine HCl 10 mg PO DAILY PRN 04/22/19 Difluprednate [Durezol] 1 drp EACH EYE QODAY 04/22/19 Oxycodone [Oxyir] 5 mg PO Q4H PRN PRN 04/22/19 Hydrocortisone [Cortef] 10 mg PO BID 01/15/20 Acetaminophen [Tylenol Tablet] 650 mg PO Q6H PRN PRN tab 01/16/20 Oxycodone [Oxyfast] 10 mg PO TID 01/30/20 Insulin Lispro [Humalog KwikPen] See Protocol SC ACHS insuln.pen 04/18/20 Pantoprazole Sodium [Protonix] 40 mg PO DAILY #30 tab 04/18/20 Ascorbic Acid [Vitamin C] 4,000 mg PO DAILY 05/16/20 Insulin Glargine [Lantus SoloStar Pen] 10 units SC DAILY #100 units 05/18/20 Insulin Lispro [Humalog] 5 unit SC TIDCM #1 ml 05/18/20 Primary Care Physician: Chente Daigle MD [Primary Care Provider] - Please follow up with your Primary Care Physician in: in 1 week Please Follow Up With: Clinic,Wound When: on 05/24/2020 Disposition: Home with Home Health Minutes spent on discharge:: 35 Medical Necessity - Tobacco Use Smoking Status: Never smoker Tobacco Use: Non-smoker Meaningful Use Info Meaningful Use Diagnoses (Choose all that apply): None applicable OBSV E&M: 01116 Observation care discharge
[2020-05-18 10:16] LABS: Bedside Glucose 283 mg/dL (70-110)
--- NOTE | 2020-05-18 11:37 | PCM.PN.HOSP ---
Patient Problems: Active and Suspected Problems Acute kidney injury superimposed on CKD (Acute) Reason for Visit: Acute kidney injury Adult failure to thrive Subjective: Patient is a 74-year-old lady with multiple comorbidities who presented with worsening edema involving both lower extremities as well as difficulty walking. Patient was noted to have impaired kidney function with BUN of 62 creatinine of 2.0 admitted to monitored bed for subsequent management 05/18/2020: Pelvis with scheduled being discharged home today however blood cultures drawn on admission came back positive for gram-positive cocci in clusters. Decision to discharge patient home discontinued will await for final identification and sensitivities Objective: GENERAL: cooperative HEENT: Atraumatic; EYES; Anicteric, Normal Conjunctiva NECK; supple, normal thyroid, RESPIRATORY: Diminished to auscultation CARDIOVASCULAR: Regular S1 S2, GI: soft, normoactive bowel sounds, : No Renal angle tenderness; EXTREMITIES: Bilateral lymphedema MUSCULOSKELETAL: no muscle waisting NEURO: Awake; no lateralizing signs. SKIN: No Rash PSYCH; Flat affect Vitals/I&O's: Vital Signs Temp Pulse Resp BP Pulse Ox 97.7 F L 84 18 115/54 L 100 05/18/20 09:20 05/18/20 09:20 05/18/20 09:20 05/18/20 09:20 05/18/20 09:20 Oxygen Delivery Method Room Air Weight: 89.3 kg Body Mass Index (BMI) 38.8 Finger Stick Blood Glucose 453 Intake and Output for Last 24 Hours 05/16/20 05/17/20 05/18/20 23:59 23:59 23:59 Intake Total 3130 / 3130 1278.33 / 1278.33 Output Total 800 / 800 300 / 300 Balance 2330 / 2330 978.33 / 978.33 Microbiology Past 72 Hours 05/16/20 18:35 Blood Culture (Wb) - Anticubital Left Blood Culture - Preliminary Laboratory Results 05/17/20 16:10: POC Glucose 86 05/17/20 21:20: POC Glucose 179 H 05/18/20 06:23: POC Glucose 58 L 05/18/20 07:00: WBC 7.4, RBC 3.08 L, Hgb 7.5 L, Hct 26.7 L, MCV 86.7, MCH 24.4 L, MCHC 28.1 L, RDW Std Deviation 53.8 H, RDW Coeff of Zuri 17.1 H, Plt Count 218, MPV 10.9 05/18/20 07:00: Sodium 138, Potassium 3.5, Chloride 107, Carbon Dioxide 23.0, Anion Gap 8, BUN 50 H, Creatinine 1.43 H, Estim Creat Clear Calc 48.66, Est GFR (MDRD) Af Amer 46 L, Est GFR (MDRD) Non-Af 38 L, BUN/Creatinine Ratio 35.0 H, Glucose 94, Calcium 8.8, Magnesium 2.5 05/18/20 10:06: POC Glucose 283 H Current Medications Acetaminophen (Acetaminophen 325 Mg Tablet) 650 mg PO Q6H PRN PRN PRN Reason: Pain Score 1-10/Temp > 100.7 F Last Admin: 05/17/20 21:35 Dose: 650 mg Documented by: Al Hydroxide/Mg Hydroxide (Mag Hydrox/Al Hydrox/Simeth 30 Ml Udc) 30 ml PO Q6H PRN PRN PRN Reason: Gastric Burning Albuterol Sulfate (Albuterol 2.5 Mg/3 Ml Vial.Neb.) 2.5 mg INHALATION Q2H PRN PRN PRN Reason: Dyspnea, wheezing Apixaban (Apixaban 5 Mg Tablet) 5 mg PO BID [facility] Last Admin: 05/18/20 09:59 Dose: 5 mg Documented by: Brimonidine Tartrate (Brimonidine 0.2% 5ml Bottle) 1 drop EACH EYE BID [facility] Last Admin: 05/18/20 09:59 Dose: 1 drop Documented by: Cyclobenzaprine HCl (Cyclobenzaprine Hcl 10 Mg Tablet) 10 mg PO QHS [facility] Last Admin: 05/17/20 21:35 Dose: 10 mg Documented by: Guaifenesin (Guaifenesin 10 Ml Udc (200mg/10ml)) 20 ml PO Q4H PRN PRN PRN Reason: COUGH Hydralazine HCl (Hydralazine 20 Mg/Ml Vial) 10 mg IV Q4H PRN PRN PRN Reason: SBP > 160 Hydrocortisone (Hydrocortisone 10 Mg Tablet) 10 mg PO 0800 [facility] Last Admin: 05/18/20 07:49 Dose: 10 mg Documented by: Hydrocortisone (Hydrocortisone 10 Mg Tablet) 5 mg PO DINNER [facility] Last Admin: 05/17/20 17:55 Dose: 5 mg Documented by: Hydromorphone HCl (Hydromorphone 0.5 Mg/0.5 Ml Syringe) 0.5 mg IV Q4H PRN PRN PRN Reason: severe pain 6-10/10 Sodium Chloride () 1,000 mls @ 100 mls/hr IV .Q10H [facility] Last Admin: 05/18/20 02:42 Dose: 100 mls/hr Documented by: Sodium Chloride () 250 mls @ 15 mls/hr IV .[id number] PRN PRN Reason: Saline Flush Insulin Glargine (Insulin Glargine 100 Units/Ml Pen) 20 units SC BID [facility] Last Admin: 05/18/20 10:07 Dose: 20 u Documented by: Insulin Human Lispro (Insulin Lispro 100 Unit/Ml Insuln.Pen) 0 unit SC ACHS [facility]; Protocol Last Admin: 05/18/20 07:27 Dose: Not Given Documented by: Insulin Human Lispro (Insulin Lispro 100 Unit/Ml Insuln.Pen) 15 unit SC TIDCM [facility] Last Admin: 05/18/20 09:09 Dose: Not Given Documented by: Lorazepam (Lorazepam 0.5 Mg Tablet) 0.25 - 0.5 mg PO Q6H PRN PRN PRN Reason: ANXIETY Magnesium Hydroxide (Magnesium Hydroxide 30 Ml Udc) 30 ml PO DAILY PRN PRN PRN Reason: Constipation Melatonin (Melatonin 3 Mg Tablet) 3 mg PO QHS PRN PRN PRN Reason: INSOMNIA Ondansetron HCl (Ondansetron 4 Mg/2 Ml Vial) 4 mg IV Q8H PRN PRN PRN Reason: NAUSEA/VOMITING Oxycodone HCl (Oxycodone 5 Mg Tablet) 10 mg PO Q4H PRN PRN PRN Reason: Pain Score 4-5 Oxycodone HCl (Oxycodone 5 Mg Tablet) 10 mg PO TID [facility] Last Admin: 05/18/20 07:26 Dose: Not Given Documented by: Pantoprazole Sodium (Pantoprazole Sodium 40 Mg Tablet) 40 mg PO DAILY [facility] Last Admin: 05/18/20 10:00 Dose: 40 mg Documented by: Prochlorperazine Edisylate (Prochlorperazine 10 Mg/2 Ml Vial) 5 mg IV Q4H PRN PRN PRN Reason: Breakthrough nausea/vomiting Psyllium Hydrophilic Mucilloid (Psyllium 1 Packet) 1 packet PO DAILY PRN PRN PRN Reason: Constipation Senna/Docusate Sodium (Senna/Docusate Sodium 1 Tablet) 2 tablet PO BID PRN PRN PRN Reason: Constipation Sodium Chloride (0.9% Saline Lock 10 Ml Syringe) 10 - 40 ml IV UD PRN PRN Reason: SALINE FLUSH Last Admin: 05/18/20 07:27 Dose: 10 ml Documented by: Throat Lozenges (Benzocaine/Menthol 1 Lozenge) 1 lozenge MUCOUS MEM Q2H PRN PRN PRN Reason: SORE THROAT STROKE Vital Signs/Narrative: Vital Signs Temp Pulse Resp BP Pulse Ox 05/18/20 09:20 97.7 F L 84 18 115/54 L 100 Medical Necessity - Tobacco Use Smoking Status: Never smoker Tobacco Use: Non-smoker Assessment/Plan All Active Problems Elevated LFTs (Acute) Pseudohyponatremia (Acute) Acute kidney injury superimposed on CKD (Acute) Patient is a 74-year-old lady with multiple comorbidities who presented with worsening edema involving both lower extremities as well as difficulty walking. Patient was noted to have impaired kidney function with BUN of 62 creatinine of 2.0 admitted to monitored bed for subsequent management 1. Adult failure to thrive ?74-year-old female with multiple comorbidities presenting with difficulty walking and bilateral lower extremity swelling admitted to monitored bed requested for PT OT eval and social security specialist consult; did discuss with patient patient may be interested in being discharged to a [facility] facility for rehab - 05/18/2020: Pelvis with scheduled being discharged home today however blood cultures drawn on admission came back positive for gram-positive cocci in clusters. Decision to discharge patient home discontinued will await for final identification and sensitivities. Patient had a discussion with case management the day prior elected to go home with home health with therapy 2. Acute kidney injury ?Patient baseline creatinine 1.1-1.4 was 2.03 with BUN of 62 on admission admitted to a monitored bed started on IV fluids with avoidance of nephrotoxic medications and consult placed to nephrology -05/18/2020; creatinine down to 1.4 3. Worsening lymphedema involving both lower extremities ?Managed with lower extremity elevation as well as Smith wrap 4. History of VTE (DVT and PE) ?Patient is on Eliquis did continue 5. History of adrenal insufficiency ?Patient is on hydrocortisone discontinued 6. GERD ?On PPI 7. Mild intermittent asthma ?Aerosol treatment as needed 8. Diabetes mellitus type 2 ?Patient oral agents held. Placed on Accu-Cheks before meals and at bedtime with sliding scale coverage 9. Morbid obesity with BMI of 40.2 ?Weight loss advised 10. History of ovarian CA ?Managed with surgery and chemotherapy with subsequent colostomy 11. History of melanoma ?Apparently in remission 12. Chronic pain syndrome ?Did continue home regimen 13. Anemia - Secondary to chronic disorder monitoring H&H and transfuse if patient becomes symptomatic or hemoglobin falls below 7. With patient's hemoglobin being 7 this a.m. repeat labs ordered for known and if below 6 patient be transfused with 1 unit PRBC with subsequent monitoring of CBC ordered 14. DVT prophylaxis ?Patient is on Eliquis 15. Bacteremia ?Awaiting final identification and sensitivities OBSV E&M: 21287 Subsequent observation care L2
[2020-05-18] MEDS: Insulin Lispro 100 UNIT/ML INSULN.PEN 15 UNIT SC ×2 (11:45→17:12)
[2020-05-18] MEDS: Insulin Lispro 100 UNIT/ML INSULN.PEN SC ×2 (11:45→17:13)
[2020-05-18] MEDS: Acetaminophen 325 MG Tablet 650 MG PO (11:46)
[2020-05-18 11:55] LABS: Bedside Glucose 304 mg/dL (70-110)
[2020-05-18] MEDS: oxyCODONE 5 MG Tablet 10 MG PO ×2 (15:03→19:56)
[2020-05-18 16:46] LABS: Bedside Glucose 186 mg/dL (70-110)
[2020-05-18] MEDS: Hydrocortisone 10 MG Tablet 5 MG PO (17:13)
[2020-05-18] MEDS: cycloBENZAPRine HCl 10 MG Tablet PO (22:11)
[2020-05-18 23:01] LABS: Bedside Glucose 143 mg/dL (70-110)
[2020-05-19 03:30] VITALS: BP 132/64; PULSE 90; RESP 18; TEMP 36.8; O2SAT 98
[2020-05-19] MEDS: oxyCODONE 5 MG Tablet 10 MG PO ×4 (03:51→22:05)
[2020-05-19 04:51] LABS: Hemoglobin 7.3 g/dL (12.0-15.0); Mean Corp Hgb Conc 28.1 g/dL (32-36); Mean Corpuscular Hgb 24.5 pg (27.0-32.0); Mean Corpuscular Volume 87.2 fL (81-99); Mean Platelet Vol. 10.6 fl (6.2-12.0); Platelet Count 232 K/mm3 (150-450); RBC Distribution Width CV 16.9 % (11.6-14.6); RBC Distribution Width SD 53.8 fl (35.1-43.9); Red Blood Count 2.98 M/mm3 (4.2-5.4); White Blood Count 6.6 K/mm3 (4.4-11.0)
[2020-05-19 05:11] LABS: Anion Gap 5 (5-15); BUN 41 mg/dL (7-18); BUN/Creat Ratio 29.7 RATIO (10-20); Calcium,Total 8.7 mg/dL (8.5-10.1); Chloride 110 mmol/L (98-107); Creatinine, Serum 1.38 mg/dL (0.55-1.02); EST Glomerular Filtration Rate 40 mL/min (>60); Est Glom Filt Rate - Afr Amer 48 mL/min (>60); Estimated Creatinine Clearance 50.42 ml/min; Glucose 99 mg/dL (74-106); Sodium Level 140 mmol/L (136-145)
[2020-05-19 06:50] LABS: Bedside Glucose 76 mg/dL (70-110)
[2020-05-19 07:13] VITALS: O2SAT 97
[2020-05-19] MEDS: 0.9% Normal Saline 1,000 ML 100 ML IV ×2 (08:24→19:23)
[2020-05-19] MEDS: Hydrocortisone 10 MG Tablet PO (08:25)
[2020-05-19 09:52] VITALS: BP 120/62; PULSE 99; RESP 18; TEMP 36.6; O2SAT 98
--- NOTE | 2020-05-19 10:34 | PCM.PN.HOSP ---
Patient Problems: Active and Suspected Problems Acute kidney injury superimposed on CKD (Acute) Reason for Visit: Acute kidney injury Adult failure to thrive Bacteremia Subjective: Patient is a 74-year-old lady with multiple comorbidities who presented with worsening edema involving both lower extremities as well as difficulty walking. Patient was noted to have impaired kidney function with BUN of 62 creatinine of 2.0 admitted to monitored bed for subsequent management 05/18/2020: Pelvis with scheduled being discharged home today however blood cultures drawn on admission came back positive for gram-positive cocci in clusters. Decision to discharge patient home discontinued will await for final identification and sensitivities 05/19/2020; patient seen had a relatively uneventful night. Blood cultures growing and anaerobic gram-positive cocci (1 out of 2 bottles ? Contamination)final identification and sensitivities pending. Patient also complains of hemorrhoidal pain. Objective: GENERAL: cooperative HEENT: Atraumatic; EYES; Anicteric, Normal Conjunctiva NECK; supple, normal thyroid, RESPIRATORY: Diminished to auscultation CARDIOVASCULAR: Regular S1 S2, GI: soft, normoactive bowel sounds, : No Renal angle tenderness; EXTREMITIES: Bilateral lymphedema MUSCULOSKELETAL: no muscle waisting NEURO: Awake; no lateralizing signs. SKIN: No Rash PSYCH; Flat affect Vitals/I&O's: Vital Signs Temp Pulse Resp BP Pulse Ox 97.8 F 99 18 120/62 98 05/19/20 09:52 05/19/20 09:52 05/19/20 09:52 05/19/20 09:52 05/19/20 09:52 Oxygen Delivery Method Room Air Weight: 94.5 kg Body Mass Index (BMI) 38.8 Finger Stick Blood Glucose 453 Intake and Output for Last 24 Hours 05/17/20 05/18/20 05/19/20 23:59 23:59 23:59 Intake Total 3130 / 3130 4515.00 / 4815.00 1500 / 1500 Output Total 800 / 800 300 / 300 Balance 2330 / 2330 4215.00 / 4515.00 1500 / 1500 Microbiology Past 72 Hours 05/16/20 18:35 Blood Culture (Wb) - Anticubital Left Blood Culture - Preliminary Anaerobic cocci 05/16/20 18:15 Blood Culture (Wb) - Right Wrist Blood Culture - Preliminary No growth in 48 hours. Laboratory Results 05/18/20 11:44: POC Glucose 304 H 05/18/20 16:41: POC Glucose 186 H 05/18/20 22:10: POC Glucose 143 H 05/19/20 04:28: WBC 6.6, RBC 2.98 L, Hgb 7.3 L, Hct 26.0 L, MCV 87.2, MCH 24.5 L, MCHC 28.1 L, RDW Std Deviation 53.8 H, RDW Coeff of Zuri 16.9 H, Plt Count 232, MPV 10.6 05/19/20 04:28: Sodium 140, Potassium 4.0, Chloride 110 H, Carbon Dioxide 25.0, Anion Gap 5, BUN 41 H, Creatinine 1.38 H, Estim Creat Clear Calc 50.42, Est GFR (MDRD) Af Amer 48 L, Est GFR (MDRD) Non-Af 40 L, BUN/Creatinine Ratio 29.7 H, Glucose 99, Calcium 8.7 05/19/20 06:46: POC Glucose 76 Current Medications Acetaminophen (Acetaminophen 325 Mg Tablet) 650 mg PO Q6H PRN PRN PRN Reason: Pain Score 1-10/Temp > 100.7 F Last Admin: 05/18/20 11:46 Dose: 650 mg Documented by: Al Hydroxide/Mg Hydroxide (Mag Hydrox/Al Hydrox/Simeth 30 Ml Udc) 30 ml PO Q6H PRN PRN PRN Reason: Gastric Burning Albuterol Sulfate (Albuterol 2.5 Mg/3 Ml Vial.Neb.) 2.5 mg INHALATION Q2H PRN PRN PRN Reason: Dyspnea, wheezing Apixaban (Apixaban 5 Mg Tablet) 5 mg PO BID [facility] Last Admin: 05/18/20 22:11 Dose: 5 mg Documented by: Brimonidine Tartrate (Brimonidine 0.2% 5ml Bottle) 1 drop EACH EYE BID [facility] Last Admin: 05/18/20 22:11 Dose: 1 drop Documented by: Cyclobenzaprine HCl (Cyclobenzaprine Hcl 10 Mg Tablet) 10 mg PO QHS [facility] Last Admin: 05/18/20 22:11 Dose: 10 mg Documented by: Guaifenesin (Guaifenesin 10 Ml Udc (200mg/10ml)) 20 ml PO Q4H PRN PRN PRN Reason: COUGH Hydralazine HCl (Hydralazine 20 Mg/Ml Vial) 10 mg IV Q4H PRN PRN PRN Reason: SBP > 160 Hydrocortisone (Hydrocortisone 10 Mg Tablet) 10 mg PO 0800 [facility] Last Admin: 05/19/20 08:25 Dose: 10 mg Documented by: Hydrocortisone (Hydrocortisone 10 Mg Tablet) 5 mg PO DINNER [facility] Last Admin: 05/18/20 17:13 Dose: 5 mg Documented by: Hydromorphone HCl (Hydromorphone 0.5 Mg/0.5 Ml Syringe) 0.5 mg IV Q4H PRN PRN PRN Reason: severe pain 6-10/10 Sodium Chloride () 1,000 mls @ 100 mls/hr IV .Q10H [facility] Last Admin: 05/19/20 08:24 Dose: 100 mls/hr Documented by: Sodium Chloride () 250 mls @ 15 mls/hr IV .[id number] PRN PRN Reason: Saline Flush Insulin Glargine (Insulin Glargine 100 Units/Ml Pen) 20 units SC BID [facility] Last Admin: 05/18/20 22:12 Dose: 20 u Documented by: Insulin Human Lispro (Insulin Lispro 100 Unit/Ml Insuln.Pen) [facility] Last Admin: 05/19/20 06:50 Dose: Not Given Documented by: Insulin Human Lispro (Insulin Lispro 100 Unit/Ml Insuln.Pen) [facility] Last Admin: 05/19/20 08:25 Dose: Not Given Documented by: Lorazepam (Lorazepam 0.5 Mg Tablet) 0.25 - 0.5 mg PO Q6H PRN PRN PRN Reason: ANXIETY Magnesium Hydroxide (Magnesium Hydroxide 30 Ml Udc) 30 ml PO DAILY PRN PRN PRN Reason: Constipation Melatonin (Melatonin 3 Mg Tablet) 3 mg PO QHS PRN PRN PRN Reason: INSOMNIA Ondansetron HCl (Ondansetron 4 Mg/2 Ml Vial) 4 mg IV Q8H PRN PRN PRN Reason: NAUSEA/VOMITING Oxycodone HCl (Oxycodone 5 Mg Tablet) 10 mg PO Q4H PRN PRN PRN Reason: Pain Score 4-5 Last Admin: 05/19/20 08:29 Dose: 10 mg Documented by: Oxycodone HCl (Oxycodone 5 Mg Tablet) 10 mg PO TID [facility] Last Admin: 05/19/20 06:12 Dose: Not Given Documented by: Pantoprazole Sodium (Pantoprazole Sodium 40 Mg Tablet) 40 mg PO DAILY [facility] Last Admin: 05/18/20 10:00 Dose: 40 mg Documented by: Prochlorperazine Edisylate (Prochlorperazine 10 Mg/2 Ml Vial) 5 mg IV Q4H PRN PRN PRN Reason: Breakthrough nausea/vomiting Psyllium Hydrophilic Mucilloid (Psyllium 1 Packet) 1 packet PO DAILY PRN PRN PRN Reason: Constipation Senna/Docusate Sodium (Senna/Docusate Sodium 1 Tablet) 2 tablet PO BID PRN PRN PRN Reason: Constipation Sodium Chloride (0.9% Saline Lock 10 Ml Syringe) 10 - 40 ml IV UD PRN PRN Reason: SALINE FLUSH Last Admin: 05/18/20 07:27 Dose: 10 ml Documented by: Throat Lozenges (Benzocaine/Menthol 1 Lozenge) 1 lozenge MUCOUS MEM Q2H PRN PRN PRN Reason: SORE THROAT STROKE Vital Signs/Narrative: Vital Signs Temp Pulse Resp BP Pulse Ox 05/19/20 09:52 97.8 F 99 18 120/62 98 05/19/20 07:13 97 Medical Necessity - Tobacco Use Smoking Status: Never smoker Tobacco Use: Non-smoker Assessment/Plan All Active Problems Elevated LFTs (Acute) Pseudohyponatremia (Acute) Acute kidney injury superimposed on CKD (Acute) Patient is a 74-year-old lady with multiple comorbidities who presented with worsening edema involving both lower extremities as well as difficulty walking. Patient was noted to have impaired kidney function with BUN of 62 creatinine of 2.0 admitted to monitored bed for subsequent management 1. Adult failure to thrive ?74-year-old female with multiple comorbidities presenting with difficulty walking and bilateral lower extremity swelling admitted to monitored bed requested for PT OT eval and child protective services social worker consult; did discuss with patient patient may be interested in being discharged to a group home facility for rehab - 05/18/2020: Pelvis with scheduled being discharged home today however blood cultures drawn on admission came back positive for gram-positive cocci in clusters. Decision to discharge patient home discontinued will await for final identification and sensitivities. Patient had a discussion with case management the day prior elected to go home with home health with therapy -05/19/2020. Patient states she is having a lift installed at home and will be ready on 05/20/2020 and subsequently requested to stay 1 additional day 2. Acute kidney injury ?Patient baseline creatinine 1.1-1.4 was 2.03 with BUN of 62 on admission admitted to a monitored bed started on IV fluids with avoidance of nephrotoxic medications and consult placed to nephrology -05/18/2020; creatinine down to 1.4 3. Worsening lymphedema involving both lower extremities ?Managed with lower extremity elevation as well as Smith wrap 4. History of VTE (DVT and PE) ?Patient is on Eliquis did continue 5. History of adrenal insufficiency ?Patient is on hydrocortisone discontinued 6. GERD ?On PPI 7. Mild intermittent asthma ?Aerosol treatment as needed 8. Diabetes mellitus type 2 ?Patient oral agents held. Placed on Accu-Cheks before meals and at bedtime with sliding scale coverage 9. Morbid obesity with BMI of 40.2 ?Weight loss advised 10. History of ovarian CA ?Managed with surgery and chemotherapy with subsequent colostomy 11. History of melanoma ?Apparently in remission 12. Chronic pain syndrome ?Did continue home regimen 13. Anemia - Secondary to chronic disorder monitoring H&H and transfuse if patient becomes symptomatic or hemoglobin falls below 7. With patient's hemoglobin being 7 this a.m. repeat labs ordered for known and if below 6 patient be transfused with 1 unit PRBC with subsequent monitoring of CBC ordered 14. DVT prophylaxis ?Patient is on Eliquis 15. Bacteremia ?Awaiting final identification and sensitivities 05/19/2020; patient seen had a relatively uneventful night. Blood cultures growing and anaerobic gram-positive cocci (1 out of 2 bottles ? Contamination)final identification and sensitivities pending. 7. Hemorrhoidal pain ?Ordered Anusol Inpatient E&M: 92753 Subs Hosp L2
[2020-05-19] MEDS: APIXABAN 5 MG TABLET PO ×2 (10:58→22:05)
[2020-05-19] MEDS: BRIMONIDINE 0.2% 5ML BOTTLE 1 DRP EACH EYE ×2 (10:58→22:05)
[2020-05-19] MEDS: Pantoprazole Sodium 40 MG Tablet PO (10:58)
[2020-05-19 12:11] LABS: Bedside Glucose 161 mg/dL (70-110)
[2020-05-19 12:15] VITALS: BP 120/52; PULSE 97; RESP 18; TEMP 36.6; O2SAT 98
[2020-05-19] MEDS: Insulin Lispro 100 UNIT/ML INSULN.PEN SC ×3 (12:34→22:06)
[2020-05-19 16:41] LABS: Bedside Glucose 169 mg/dL (70-110)
[2020-05-19] MEDS: Hydrocortisone 10 MG Tablet 5 MG PO (16:41)
[2020-05-19 22:01] VITALS: BP 130/65; PULSE 87; RESP 16; TEMP 36.6; O2SAT 96
[2020-05-19] MEDS: cycloBENZAPRine HCl 10 MG Tablet PO (22:05)
[2020-05-19 22:15] LABS: Bedside Glucose 191 mg/dL (70-110)
[2020-05-20 03:38] VITALS: BP 134/61; PULSE 78; RESP 16; TEMP 36.7; O2SAT 99
[2020-05-20 03:57] LABS: Hematocrit 25.4 % (37-47); Hemoglobin 7.1 g/dL (12.0-15.0); Mean Corpuscular Hgb 24.4 pg (27.0-32.0); Mean Corpuscular Volume 87.3 fL (81-99); Platelet Count 360 K/mm3 (150-450); RBC Distribution Width CV 16.8 % (11.6-14.6); RBC Distribution Width SD 54.6 fl (35.1-43.9); Red Blood Count 2.91 M/mm3 (4.2-5.4); White Blood Count 6.6 K/mm3 (4.4-11.0)
[2020-05-20] MEDS: 0.9% Normal Saline 1,000 ML 100 ML IV ×2 (04:07→13:53)
[2020-05-20] MEDS: oxyCODONE 5 MG Tablet 10 MG PO ×4 (04:07→18:52)
[2020-05-20 04:14] LABS: Anion Gap 5 (5-15); BUN 35 mg/dL (7-18); BUN/Creat Ratio 27.6 RATIO (10-20); Calcium,Total 8.5 mg/dL (8.5-10.1); Chloride 111 mmol/L (98-107); Creatinine, Serum 1.27 mg/dL (0.55-1.02); EST Glomerular Filtration Rate 44 mL/min (>60); Est Glom Filt Rate - Afr Amer 53 mL/min (>60); Estimated Creatinine Clearance 57.98 ml/min; Glucose 120 mg/dL (74-106); Potassium 4.3 mmol/L (3.5-5.1); Sodium Level 141 mmol/L (136-145)
[2020-05-20 06:31] LABS: Bedside Glucose 116 mg/dL (70-110)
[2020-05-20 08:25] VITALS: O2SAT 99
[2020-05-20] MEDS: Hydrocortisone 10 MG Tablet PO (08:52)
[2020-05-20] MEDS: Pantoprazole Sodium 40 MG Tablet PO (08:52)
[2020-05-20] MEDS: BRIMONIDINE 0.2% 5ML BOTTLE 1 DRP EACH EYE (08:53)
[2020-05-20] MEDS: APIXABAN 5 MG TABLET PO (08:53)
[2020-05-20 09:38] VITALS: BP 138/74; PULSE 93; RESP 18; TEMP 36.6; O2SAT 95
--- NOTE | 2020-05-20 09:46 | CASEMGMT ---
Social Work Note ROXIE received call from Kelsea at [facility] requesting update. ROXIE provided update, pt should discharge home today, will fax discharge paperwork once completed. Shelbi Heck GOLF SALES MANAGER, GEOGRAPHIC AREA INTELLIGENCE OFFICER
[2020-05-20] MEDS: 0.9% Saline Lock 10 ML Syringe IV (09:50)
[2020-05-20] MEDS: HYDROmorphone 0.5 MG/0.5 ML SYRINGE IV (09:50)
[2020-05-20] MEDS: Insulin Lispro 100 UNIT/ML INSULN.PEN SC ×2 (12:30→16:36)
[2020-05-20 12:36] LABS: Bedside Glucose 150 mg/dL (70-110)
[2020-05-20 13:24] LABS: Hematocrit 27.3 % (37-47); Hemoglobin 7.8 g/dL (12.0-15.0)
[2020-05-20 15:28] VITALS: BP 130/52; PULSE 91; RESP 16; TEMP 36.6; O2SAT 96
--- NOTE | 2020-05-20 15:33 | CHAPLAIN ---
Type of Pastoral Visit _x__ Initial Visit ___ Follow-up Visit ___ On-call Visit ___ General Patient Visit ___ Spiritual Assessment ___ Family Conference ___ Bereavement ___ Rapid Response ___ Code Blue ___ Other (describe below) Pastoral Care Referral From _x__ Patient ___ Family ___ Nurse ___ Physician ___ Manager Inpatient ___ Licensed Mental Health Counselor ___ Other (describe below) Sacrament/Intervention _x__ Active listening ___ Anointing ___ Church ___ Bereavement ___ Communion ___ Radha exploration ___ _x__ Life review _x__ Prayer ___ Reconciliation ___ Sacrament of Sick _x__ Supportive presence ___ Wedding ___ Other (describe below) Pastoral Comments patient is a repeat and remembers this cardroom attendant; pt gives updates on health and her home situation; pt states that it is God who helps; pt is talkative about life and welcomes prayer and presence
--- NOTE | 2020-05-20 16:10 | DS.PCM_ITS ---
Discharge Date and Diagnosis - Problem List Patient Problems: Active and Suspected Problems Acute kidney injury superimposed on CKD (Acute) Date of Admission: 05/16/20 Date of Discharge: 05/20/20 - Primary Discharge Diagnosis Acute Problems: Active Problems Acute kidney injury superimposed on CKD (Acute) - Secondary Discharge Diagnosis Chronic Problems: Chronic Problems Stage III chronic kidney disease (Chronic) Venous ulcer of right lower extremity without varicose veins (Chronic) Multiple thyroid nodules (Chronic) Thyromegaly (Chronic) Lymphedema of both lower extremities (Chronic) Melanoma (Chronic) Asthma (Chronic) Reported, severity unknown History of DVT (deep vein thrombosis) (Chronic) History of pulmonary embolism (Chronic) Type II diabetes mellitus (Chronic) Cancer of ovary (Chronic) Anemia (Chronic) Venous insufficiency (Chronic) Poor dentition (Chronic) Hospital Course and Treatment Imaging Results: Clinical Impression(s) from Imaging Studies Venous Duplex 05/16/20 19:52 IMPRESSION: 1. No demonstrated deep venous thrombosis of the bilateral lower extremities. 2. A debris-filled 2.9 cm right posterior knee Pineda''s cyst is present. Electronically Signed: Ronn Feliz MD at 21:18 EST , Service support , Consultations 05/16/20 22:35 Consult: Onc/Wound/buyer Routine Comment: Operations: None Procedures: None Summary of Care Provided: Per HPI: The patient is a 74 y/o F w/ PMHx: ? Adrenal insufficiency, Chronic pain syndrome, Chronic anemia, Chronic BL LE lymphedema, CKD stage III, Hx Thy roid nodules, Chronic asthma, Hx DVT and PE, Diabetes mellitus type II, PVD, Hx Ovarian CA and melanoma who presents to the [facility] ED on 05/16/20 with history of specifically worsening BL LE pain, more severe with activity and even when at rest, ranging 10/10-5/10 in severity, sharp and dull aching variation, notes more edematous and difficulty walking. She notes she called the [facility] for an appointment but has not heard back. She notes that the redness to BL LE is similar to her chronic skin changes with her stasis disease. Work-up in the ED included T 98.1, heart rate 102, BP initially 150/121 with repeat 90/40, respiratory rate 14, 95% on room air, CBC with WC 10.4, hemoglobin 8.9, platelets noted to be adequate however clumping present therefore not given exact number with left shift and lymphopenia, BMP with sodium 133, BUN/creatinine 62/2.03 with BUN increased from most recent 04/18/20 BUN 42 and creatinine 04/18/2020 Cr 1.11 similar elevation 04/14/2020 with GREGORY on chronic kidney disease admission at that time, blood culture x2 pending per ED, duplex ultrasound unremarkable. Hospital Course: 1. Adult failure to thrive/GREGORY on CKD 3/morbid obesity/cjcxnorawa-50-kcdd-old female presenting with worsening bilateral lower extremity pain. She was found to be with an GREGORY on admission which has improved to 1.27 on discharge, down from 2.03 on admission. She was initially to be discharged on Wednesday however she was found to have a blood culture that was positive for anaerobic cocci, however this was only in 1 out of 4 bottles and therefore likely contaminant. Today she is having a lift installed at home so she refused to go to a [facility] facility and does not even want home health care nursing to come and evaluate her. She would just prefer home PT. I discussed with her the plan for discharge today and she expressed understanding the risk and benefits of going home and wants to go home. I recommend that she follow-up with her PCP as an outpatient for monitoring of her kidney function with a BMP. And to continue wrapping her legs with Smith wrap to help with her lymphedema. Also her BMI is 40.2, we did have discussion and lifestyle modifications for weight loss. 2. Chronic anemia-uncertain etiology only the follow-up as an outpatient. Hemoglobin this morning was 7.1 and then 7.8 on repeat. Would recommend that she follow-up with her PCP for outpatient monitoring and she may need a hematology consult as an outpatient as well. 3. History of DVT and PE, history of adrenal insufficiency, GERD, mild intermittent asthma, type 2 diabetes, history of ovarian cancer, history of melanoma, history of chronic pain, all chronic medical conditions which complicate her care. Her home medications were continued where appropriate Patient Problems: Active and Suspected Problems Acute kidney injury superimposed on CKD (Acute) - Physical Exam Vitals/I&O's: Vital Signs Temp Pulse Resp BP Pulse Ox 97.8 F 91 16 130/52 H 96 05/20/20 15:28 05/20/20 15:28 05/20/20 15:28 05/20/20 15:28 05/20/20 15:28 Oxygen Delivery Method Room Air Weight: 211 lb 3.245 oz Body Mass Index (BMI) 38.8 Finger Stick Blood Glucose 453 Intake and Output for Last 24 Hours 05/18/20 05/19/20 05/20/20 23:59 23:59 23:59 Intake Total 4515.00 / 4815.00 4100 / 4340 2240.00 / 2240.00 Output Total 300 / 300 Balance 4215.00 / 4515.00 4100 / 4340 2240.00 / 2240.00 General: Alert, Oriented x3, Cooperative, No apparent distress HEENT: Atraumatic, PERRLA, EOMI, Normocephalic Oral: Moist Mucosa Neck: Supple, No JVD Lungs: Clear to auscultation, Normal air movement, No rhonchi, No wheeze, No rales, Diminished Cardiovascular: Regular rate, Regular Rhythm, Normal S1, Normal S2, No murmurs Abdomen: Soft, Non Tender, Non-Distended, No Hepato-splenomegaly, Obese Extremities: No edema, Capillary Refill Less than 3 Seconds Skin: No rashes, No breakdown Neurological: Neuro grossly intact, Sensory exam intact to light touch and pain Psych/Mental Status: Normal Affect, Appropriate Microbiology Past 72 Hours 05/16/20 18:35 Blood Culture (Wb) - Anticubital Left Blood Culture - Preliminary Anaerobic cocci 05/16/20 18:15 Blood Culture (Wb) - Right Wrist Blood Culture - Preliminary No growth in 48 hours. Laboratory Results 05/19/20 16:37: POC Glucose 169 H 05/19/20 22:04: POC Glucose 191 H 05/20/20 03:45: WBC 6.6, RBC 2.91 L, Hgb 7.1 L, Hct 25.4 L, MCV 87.3, MCH 24.4 L , MCHC 28.0 L, RDW Std Deviation 54.6 H, RDW Coeff of Zuri 16.8 H, Plt Count 360, MPV 9.0 05/20/20 03:45: Sodium 141, Potassium 4.3, Chloride 111 H, Carbon Dioxide 25.0, Anion Gap 5, BUN 35 H, Creatinine 1.27 H, Estim Creat Clear Calc 57.98, Est GFR (MDRD) Af Amer 53 L, Est GFR (MDRD) Non-Af 44 L, BUN/Creatinine Ratio 27.6 H, Glucose 120 H, Calcium 8.5 05/20/20 06:18: POC Glucose 116 H 05/20/20 12:28: POC Glucose 150 H 05/20/20 13:13: Hgb 7.8 L, Hct 27.3 L Current Medications Acetaminophen (Acetaminophen 325 Mg Tablet) 650 mg PO Q6H PRN PRN PRN Reason: Pain Score 1-10/Temp > 100.7 F Last Admin: 05/18/20 11:46 Dose: 650 mg Documented by: Al Hydroxide/Mg Hydroxide (Mag Hydrox/Al Hydrox/Simeth 30 Ml Udc) 30 ml PO Q6H PRN PRN PRN Reason: Gastric Burning Albuterol Sulfate (Albuterol 2.5 Mg/3 Ml Vial.Neb.) 2.5 mg INHALATION Q2H PRN PRN PRN Reason: Dyspnea, wheezing Apixaban (Apixaban 5 Mg Tablet) 5 mg PO BID [facility] Last Admin: 05/20/20 08:53 Dose: 5 mg Documented by: Brimonidine Tartrate (Brimonidine 0.2% 5ml Bottle) 1 drop EACH EYE BID [facility] Last Admin: 05/20/20 08:53 Dose: 1 drop Documented by: Cyclobenzaprine HCl (Cyclobenzaprine Hcl 10 Mg Tablet) 10 mg PO QHS [facility] Last Admin: 05/19/20 22:05 Dose: 10 mg Documented by: Guaifenesin (Guaifenesin 10 Ml Udc (200mg/10ml)) 20 ml PO Q4H PRN PRN PRN Reason: COUGH Hydralazine HCl (Hydralazine 20 Mg/Ml Vial) 10 mg IV Q4H PRN PRN PRN Reason: SBP > 160 Hydrocortisone (Hydrocortisone 10 Mg Tablet) 10 mg PO 0800 [facility] Last Admin: 05/20/20 08:52 Dose: 10 mg Documented by: Hydrocortisone (Hydrocortisone 10 Mg Tablet) 5 mg PO DINNER [facility] Last Admin: 05/19/20 16:41 Dose: 5 mg Documented by: Hydrocortisone Acetate (Hydrocortisone 25 Mg Suppository) 25 mg RECTAL TID PRN PRN PRN Reason: Hemorrhoids Hydromorphone HCl (Hydromorphone 0.5 Mg/0.5 Ml Syringe) 0.5 mg IV Q4H PRN PRN PRN Reason: severe pain 6-10/10 Last Admin: 05/20/20 09:50 Dose: 0.5 mg Documented by: Sodium Chloride () 1,000 mls @ 100 mls/hr IV .Q10H [facility] Last Admin: 05/20/20 13:53 Dose: 100 mls/hr Documented by: Sodium Chloride () 250 mls @ 15 mls/hr IV .[id number] PRN PRN Reason: Saline Flush Insulin Glargine (Insulin Glargine 100 Units/Ml Pen) 10 units SC DAILY [facility] Last Admin: 05/20/20 08:53 Dose: 10 u Documented by: Insulin Human Lispro (Insulin Lispro 100 Unit/Ml Insuln.Pen) 0 unit SC ACHS [facility]; Protocol Last Admin: 05/20/20 12:30 Dose: 2 units Documented by: Lorazepam (Lorazepam 0.5 Mg Tablet) 0.25 - 0.5 mg PO Q6H PRN PRN PRN Reason: ANXIETY Magnesium Hydroxide (Magnesium Hydroxide 30 Ml Udc) 30 ml PO DAILY PRN PRN PRN Reason: Constipation Melatonin (Melatonin 3 Mg Tablet) 3 mg PO QHS PRN PRN PRN Reason: INSOMNIA Ondansetron HCl (Ondansetron 4 Mg/2 Ml Vial) 4 mg IV Q8H PRN PRN PRN Reason: NAUSEA/VOMITING Oxycodone HCl (Oxycodone 5 Mg Tablet) 10 mg PO Q4H PRN PRN PRN Reason: Pain Score 4-5 Last Admin: 05/20/20 08:57 Dose: 10 mg Documented by: Oxycodone HCl (Oxycodone 5 Mg Tablet) 10 mg PO TID [facility] Last Admin: 05/20/20 13:56 Dose: 10 mg Documented by: Pantoprazole Sodium (Pantoprazole Sodium 40 Mg Tablet) 40 mg PO DAILY [facility] Last Admin: 05/20/20 08:52 Dose: 40 mg Documented by: Prochlorperazine Edisylate (Prochlorperazine 10 Mg/2 Ml Vial) 5 mg IV Q4H PRN PRN PRN Reason: Breakthrough nausea/vomiting Psyllium Hydrophilic Mucilloid (Psyllium 1 Packet) 1 packet PO DAILY PRN PRN PRN Reason: Constipation Senna/Docusate Sodium (Senna/Docusate Sodium 1 Tablet) 2 tablet PO BID PRN PRN PRN Reason: Constipation Sodium Chloride (0.9% Saline Lock 10 Ml Syringe) 10 - 40 ml IV UD PRN PRN Reason: SALINE FLUSH Last Admin: 05/20/20 09:50 Dose: 10 ml Documented by: Throat Lozenges (Benzocaine/Menthol 1 Lozenge) 1 lozenge MUCOUS MEM Q2H PRN PRN PRN Reason: SORE THROAT Discharge Diet: 1800 Calorie Control Diet Discharge Activity: Return to Normal Activity, May not drive while taking narcotic pain medications. Home Medications: Medications to take at Discharge Cyanocobalamin [Vitamin B12] 1,000 mcg PO DAILY@0800 05/29/15 cycloBENZAPRine HCl [Flexeril] 10 mg PO QHS 05/29/15 Apixaban [Eliquis] 5 mg PO BID 06/12/15 proMETHazine tablet [Phenergan tablet] 25 mg PO 4X/DAY PRN PRN #20 tablet 07/20/15 Albuterol IH (ProAir) [Proair Hfa] 2 puff INHALATION Q6H PRN PRN 05/27/16 Ondansetron HCl [Zofran] 8 mg PO TID PRN PRN 05/27/16 Cholecalciferol (VIT D3) [Vitamin D3] 2,000 unit PO DAILY 04/01/18 DiphenhydrAMINE [Benadryl] 25 mg PO BID PRN 01/12/19 Lorazepam [Ativan] 0.25 - 0.5 mg PO Q6H PRN PRN 01/12/19 Brimonidine Tartrate 0.2% [Brimonidine 0.2% 5Ml Bottle] 1 drp EACH EYE BID 04/22/19 Cetirizine HCl 10 mg PO DAILY PRN 04/22/19 Difluprednate [Durezol] 1 drp EACH EYE QODAY 04/22/19 Oxycodone [Oxyir] 5 mg PO Q4H PRN PRN 04/22/19 Hydrocortisone [Cortef] 10 mg PO BID 01/15/20 Acetaminophen [Tylenol Tablet] 650 mg PO Q6H PRN PRN tab 01/16/20 Oxycodone [Oxyfast] 10 mg PO TID 01/30/20 Insulin Lispro [Humalog KwikPen] See Protocol SC ACHS insuln.pen 04/18/20 Pantoprazole Sodium [Protonix] 40 mg PO DAILY #30 tab 04/18/20 Ascorbic Acid [Vitamin C] 4,000 mg PO DAILY 05/16/20 Insulin Glargine [Lantus SoloStar Pen] 10 units SC DAILY #100 units 05/18/20 Insulin Lispro [Humalog] 5 unit SC TIDCM #1 ml 05/18/20 Primary Care Physician: Chente Daigle MD [Primary Care Provider] - Please follow up with your Primary Care Physician in: in 1 week Please Follow Up With: Clinic,Wound When: on 05/24/2020 Disposition: Home with Home Health Minutes spent on discharge:: 35 Patient Condition:: Stable Medical Necessity - Tobacco Use Smoking Status: Never smoker Tobacco Use: Non-smoker Meaningful Use Info Meaningful Use Diagnoses (Choose all that apply): None applicable OBSV E&M: 83843 Observation care discharge
[2020-05-20] MEDS: Hydrocortisone 10 MG Tablet 5 MG PO (16:38)
[2020-05-20 16:45] LABS: Bedside Glucose 160 mg/dL (70-110)
--- NOTE | 2020-05-21 09:07 | CASEMGMT ---
Social Work Note SW placed a call to [facility] and spoke with Kelsea. Kelsea aware pt discharged home yesterday and discharge paperwork was received. Shelbi Heck HOME ENERGY INSPECTOR, RECRUITING OPERATIONS CONSULTANT
== END 2020-05-20 19:05 | disposition home health service (06) ==
LOC: ED 18:44 → MS3 21:44
PROVIDERS: Internal Medicine; Admitting Provider Family Medicine; Emergency Provider Emergency Medicine; PCP Family Medicine; Visit Provider Family Medicine
DX: N17.9 Acute kidney failure, unspecified (principal); E11.22 Type 2 diabetes mellitus with diabetic chronic kidney disease; N18.30 Chronic kidney disease, stage 3 unspecified; J45.909 Unspecified asthma, uncomplicated; I89.0 Lymphedema, not elsewhere classified; E11.51 Type 2 diabetes mellitus with diabetic peripheral angiopathy without gangrene; K21.9 Gastro-esophageal reflux disease without esophagitis; D64.9 Anemia, unspecified; E66.01 Morbid (severe) obesity due to excess calories; R62.7 Adult failure to thrive; R26.2 Difficulty in walking, not elsewhere classified; I87.2 Venous insufficiency (chronic) (peripheral); E27.40 Unspecified adrenocortical insufficiency; G89.4 Chronic pain syndrome; Z85.820 Personal history of malignant melanoma of skin; Z85.72 Personal history of non-Hodgkin lymphomas; Z86.711 Personal history of pulmonary embolism; Z86.718 Personal history of other venous thrombosis and embolism; Z79.899 Other long term (current) drug therapy; Z79.01 Long term (current) use of anticoagulants; Z79.4 Long term (current) use of insulin; Z68.41 Body mass index [BMI] 40.0-44.9, adult; J45.20 Mild intermittent asthma, uncomplicated; Z93.3 Colostomy status; Z85.43 Personal history of malignant neoplasm of ovary
CPT/HCPCS: 36415; 80048; 80053; 82607; 82728; 82962; 83540; 83550; 83735; 84145; 85014; 85018; 85025; 85027; 85045; 87040; 87077; 93970; 96361; 96374; 96375; 96376; 97110; 97162; 97166; 97530; 97535; 97802; 99218; 99285; J7030; A4216; G0378